=== PATIENT | female | born 1970 | race Caucasian/White ===

== ENCOUNTER 2020-02-11 01:13 | Day surgery (SDC) | payer BC, OTHER ==
[2020-02-11] VITALS (12 sets, daily range): BP systolic 122–159; BP diastolic 63–95
[~2020-02-11] VITALS: Ht 160.2 cm; Wt 100.0 kg
[~2020-02-11 01:13] MED LIST: ATEN50TA PO; DICL50TA3 PO; HYDR-34 PO; LISI1TAB6 PO; VENL150C PO; ZOLP10TA5 PO
--- OUTSIDE RECORDS SUMMARY | 2020-02-11 01:23 | XMS REPORT ---
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 Name Role Phone MARI GALARZA Unavailable PROBLEMS Type Condition ICD9-CM Code [id number] Code Onset Dates Condition S tatus SNOMED Code Problem ADHD, predominantly inattentive type F90.0 Active 57917631 Problem Major depressive disorder, recurrent episode, in full remission F33.42 Active 262940309 Problem Seasonal allergies J30.2 Active 4 33271241 Problem Moderate episode of recurrent major depressive disorder F33.1 Active 814550195 Problem Intractable migraine without aura and with status migr ainosus G43.011 Active 647673534 Problem Hyperlipidemia, unspecified hyperlipidemia type E7 8.5 Active 37828569 Problem Essential hypertension I10 Active 81489745 Problem Recurrent sinusitis J32.9 Active 259987666 Problem Primary insomnia F51.01 Active 397 2004 Problem Migraine without aura and without status migrain osus, not intractable G43.009 Active 891727342 Problem Non-seasonal allergic rhinitis due to pollen J30.1 Active 87853928 Problem Severe episode of recurrent major depressive disorder, without psychotic features F33.2 Active 47400710 Problem Depression, major, in remission F32.5 Active [id number] ALLERGIES No Information ENCOUNTERS Encounter Location Date Diagnosis [facility] [place] [address] [id number] [address] [place] [id number] December, Primary insomnia F51.01 [facility] [place] [address] [id number] [address] [place] [id number] Nov, ADHD, predominantly inattent randall type F90.0 and Primary insomnia F51.01 [facility] [place] [address] [facility] [id number] [address] [place] [id number] Nov, ADHD, predominantly inattent randall type F90.0 [place] [address] [id number] [address] [place] [id number] 21 Nov, 2019 ADHD, predominantly inattent randall type F90.0 [place] [address] [facility] [id number] [address] [place] [id number] 13 Nov, 2019 Depression, major, in remiss ion F32.5 ; Hyperlipidemia, unspecified hyperlipidemia type E78.5 ; Recurrent sinusitis J32.9 and Mammogram declined Z53.20 [facility] [place] [address] [id number] [address] [place] [id number] Oct, ADHD, predominantly inattent randall type F90.0 [place] [address] [facility] [id number] [address] [place] [id number] 28 Sep, 2019 ADHD, predominantly inattent randall type F90.0 [place] [address] [facility] [id number] [address] [place] [id number] Sep, [place] [address] [facility] [id number] [address] [place] [phone] Sep, ADHD, predominantly inattent randall type F90.0 [place] [address] [facility] [id number] [address] [place] [id number] Aug, ADHD, predominantly inattent randall type F90.0 [place] [address] [facility] [id number] [address] [place] [id number] Jul, ADHD, predominantly inattent randall type F90.0 [place] [address] [facility] [id number] [address] [place] [id number] 18 Jun, 2019 ADHD, predominantly inattent randall type F90.0 ; Moderate episode of recurrent major depressive disorder F33.1 and Intractable migraine without aura and with status migrainosus G43.011 [place] [address] [facility] [id number] [address] [place] [phone] 14 May, 2019 Severe episode of recurrent major depressive disorder, without psychotic features F33.2 [place] [address] [id number] [address] [place] [id number] May, [facility] [place] [address] [id number] [address] [place] [id number] Apr, [facility] [place] [address] [id number] [address] [place] [phone] Mar, Moderate episode of recurren t major depressive disorder F33.1 [facility] [place] [address] [id number] [address] [place] [id number] Mar, [facility] [place] [address] [id number] [address] [place] [phone] Feb, [facility] [place] [address] [id number] [address] [place] [id number] Feb, [facility] [place] [address] [facility] [id number] [address] [place] [id number] Jan, Major depressive disorder, r ecurrent episode, in full remission F33.42 [facility] [place] [address] [id number] [address] [place] [id number] Jan, Moderate episode of recurren t major depressive disorder F33.1 ; Non-seasonal allergic rhinitis due to pollen J30.1 ; Migraine without aura and without status migrainosus, not intractable G43.009 and Sinus congestion R09.81 [facility] [place] [address] [id number] [address] [place] [phone] Jan, [facility] [place] [address] [facility] [id number] [address] [place] [id number] December, Moderate episode of recurren t major depressive disorder F33.1 [facility] [place] [address] [id number] [address] [place] [phone] December, [facility] [place] [address] [facility] [id number] [address] [place] [phone] December, Moderate episode of recurren t major depressive disorder F33.1 [facility] [place] [address] [id number] [address] [place] [id number] Nov, Moderate episode of recurren t major depressive disorder F33.1 and Intractable migraine without aura and with status migrainosus G43.011 [facility] [place] [address] [facility] [id number] [address] [place] [phone] Nov, [facility] [place] [address] [facility] [id number] [address] [place] [phone] Oct, Major depressive disorder, r ecurrent episode, in full remission F33.42 ; Intractable migraine without aura and with status migrainosus G43.011 ; Weight gain R63.5 ; Vision changes H53.9 and 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 [place] [address] [facility] [id number] [address] [place] [id number] Oct, Encounter for pre-employment examination Z02.1 [place] [address] [facility] [id number] [address] [place] [id number] Oct, [facility] [address] [facility] [id number] [address] [place] [id number] 20 Sep, 2018 Acute non-recurrent maxillar y sinusitis J01.00 [facility] [place] [address] [facility] [id number] [address] [place] [id number] 14 Sep, 2018 [facility] [place] [address] [facility] [id number] [address] [place] [id number] Aug, [facility] [place] [id number] [address] [place] [id number] Jul, ADHD, predominantly inattent randall type F90.0 and Primary insomnia F51.01 [facility] [place] [address] [facility] [id number] [address] [place] [id number] Jun, ADHD, predominantly inattent randall type F90.0 [facility] [place] [address] [facility] [id number] [address] [place] [id number] May, ADHD, predominantly inattent randall type F90.0 ; Moderate episode of recurrent major depressive disorder F33.1 and Therapeutic drug monitoring Z51.81 [facility] [place] [address] [facility] [id number] [address] [place] [id number] 04 May, 2018 [facility] [place] [address] [facility] [id number] [address] [place] [id number] 28 Apr, 2018 ADHD, predominantly inattent randall type F90.0 [facility] [place] [address] [facility] [id number] [address] [place] [id number] 10 Apr, 2018 ADHD, predominantly inattent randall type F90.0 and Major depressive disorder, recurrent episode, in full remission F33.42 [facility] [place] [address] [facility] [id number] [address] [place] [id number] Mar, ADHD, predominantly inattent randall type F90.0 and Primary insomnia F51.01 [facility] [place] [address] [facility] [id number] [address] [place] [phone] Mar, [facility] [place] [address] [facility] [id number] [address] [place] [id number] Mar, ADHD, predominantly inattent randall type F90.0 and Primary insomnia F51.01 [facility] [place] [address] [facility] [id number] [address] [place] [id number] Feb, ADHD, predominantly inattent randall type F90.0 and Primary insomnia F51.01 [facility] [place] [address] [facility] [id number] [address] [place] [id number] Jan, ADHD, predominantly inattent randall type F90.0 and Primary insomnia F51.01 [facility] [address] [facility] [id number] [address] [place] [id number] December, Seasonal allergies J30.2 and Post-nasal drip R09.82 [facility] [place] [address] [facility] [id number] [address] [place] [id number] December, ADHD, predominantly inattent randall type F90.0 and Primary insomnia F51.01 [facility] [place] [address] [facility] [id number] [address] [place] [phone] Nov, ADHD, predominantly inattent randall type F90.0 [facility] [place] [address] [facility] [id number] [address] [place] [phone] Oct, ADHD, predominantly inattent randall type F90.0 [facility] [place] [address] [facility] [id number] [address] [place] [id number] Oct, ADHD, predominantly inattent randall type F90.0 ; Primary insomnia F51.01 and Screening, lipid Z13.220 [facility] [place] [address] [facility] [id number] [address] [place] [id number] Sep, ADHD, predominantly inattent randall type F90.0 [facility] [place] [address] [facility] [id number] [address] [place] [id number] Aug, ADHD, predominantly inattent randall type F90.0 and Primary insomnia F51.01 [facility] [place] [address] [facility] [id number] [address] [place] [id number] Jul, ADHD, predominantly inattent randall type F90.0 [facility] [place] [address] [facility] [id number] [address] [place] [id number] Jul, Primary insomnia F51.01 and ADHD, predominantly inattentive type F90.0 [facility] [place] [address] [facility] [id number] [address] [place] [id number] Jun, ADHD, predominantly inattent randall type F90.0 [facility] [place] [address] [facility] [id number] [address] [place] [id number] May, ADHD, predominantly inattent randall type F90.0 [facility] [place] [address] [facility] [id number] [address] [place] [id number] Apr, ADHD, predominantly inattent randall type F90.0 [facility] [place] [address] [facility] [id number] [address] [place] [id number] Mar, ADHD, predominantly inattent randall type F90.0 ; Primary insomnia F51.01 ; Major depressive disorder, recurrent episode, in full remission F33.42 and Acne comedone L70.0 [place] [address] [facility] [id number] [address] [place], [place] [id number] Mar, Major depressive disorder, r ecurrent episode, in full remission F33.42 and ADHD, predominantly inattentive type F90.0 [facility] [place] [address] [facility] [id number] [address] [place] [id number] Feb, ADHD, predominantly inattent randall type F90.0 [place] [address] [facility] [id number] [address] [place] [id number] Feb, Primary insomnia F51.01 [place] [address] [place] [id number] [address] [place] [phone] Jan, ADHD, predominantly inattent randall type F90.0 and Primary insomnia F51.01 [place] [address] [place] [id number] [address] [place] [id number] December, ADHD, predominantly inattent randall type F90.0 and Primary insomnia F51.01 [place] [address] [place] [id number] [address] [place] [id number] Oct, ADHD, predominantly inattent randall type F90.0 and Primary insomnia F51.01 [facility] [place] [address] [place] [id number] [address] [place] [id number] Sep, ADHD, predominantly inattent randall type F90.0 and Primary insomnia F51.01 [facility] [place] [address] [facility] [id number] [address] [place] [id number] Aug, ADHD, predominantly inattent randall type F90.0 and Primary insomnia F51.01 [facility] [place] [address] [facility] [id number] [address] [place] [address] Jul, Major depressive disorder, r ecurrent episode, in full remission F33.42 ; ADHD, predominantly inattentive type F90.0 ; Primary insomnia F51.01 ; Acute non-recurrent maxillary sinusitis J01.00 and Screening, lipid Z13.220 [facility] [address] [id number] [address] [place] [id number] Jun, Acute non-recurrent maxillar y sinusitis J01.00 [facility] [place] [address] [id number] [address] [place] [id number] Jun, ADHD, predominantly inattent randall type F90.0 [facility] [place] [address] [id number] [address] [place] [id number] May, [facility] [place] [address] [id number] [address] [place] [id number] Apr, [facility] [address] [id number] [address] [place] [phone] Feb, Rash R21 and Scabies B86 [facility] [place] [address] [id number] [address] [place] [phone] Feb, ADHD, predominantly inattent randall type F90.0 and Major depressive disorder, recurrent episode, in full remission F33.42 [facility] [place] [address] [id number] [address] [place] [id number] Feb, [facility] [place] [address] [id number] [address] [place] [phone] Oct, [facility] [place] [address] [id number] [address] [place] [id number] Sep, [facility] [place] [address] [id number] [address] [place] [phone] Sep, [facility] [place] [address] [id number] [address] [place] [phone] Aug, [facility] [place] [address] [id number] [address] [place] [id number] Jul, [facility] [place] [address] [id number] [address] [place] [id number] Jun, [facility] [place] [address] [id number] [address] [place] [id number] May, [facility] [place] [address] [id number] [address] [place] [phone] May, ADHD, predominantly inattent randall type F90.0 and Major depressive disorder, recurrent episode, in full remission F33.42 [facility] [place] [address] [id number] [address] [place] [id number] Feb, Major depressive disorder, r ecurrent episode, moderate 296.32 [facility] [place] [address] [id number] [address] [place] [id number] Feb, [facility] [place] [address] [id number] [address] [place] [id number] Jan, [facility] [place] [address] [id number] [address] [place] [phone] Jan, [facility] [place] [address] [id number] [address] [place] [phone] December, [facility] [place] [address] [id number] [address] [place] [id number] Nov, [facility] [place] [address] [id number] [address] [place] [id number] Nov, [facility] [place] [address] [facility] [id number] [address] [place] [phone] Oct, [facility] [place] [address] [id number] [address] [place] [id number] Oct, [facility] [place] [address] [id number] [address] [place] [id number] Sep, [facility] [place] [address] [id number] [address] [place] [id number] Sep, [facility] [place] [address] [id number] [address] [place] [phone] Sep, [facility] [place] [address] [id number] [address] [place] [phone] Sep, [facility] [address] [id number] [address] [place] [address], [place] [address] Aug, [facility] [address] [id number] [address] [place] [address], [place] [address] Aug, [facility] [address] [id number] [address] [place] [address], [place] [address] Aug, [facility] [address] [id number] [address] [place] [address], [place] [address] Aug, [facility] [address] [id number] [address] [place] [address], [place] [address] Aug, [facility] [address] [id number] [address] [place] [address], [place] [phone] Aug, [facility] [address] [id number] [address] [place] [address], [place] [address] Jul, [facility] [address] [id number] [address] [place] [address], [place] [id number] Jul, [facility] [address] [id number] [address] [place] [address], [place] [address] Jun, [facility] [address] [id number] [address] [place] [address], [place] [address] Jun, [facility] [address] [id number] [address] [place] [address], [place] [address] May, [facility] [address] [id number] [address] [place] [address], [place] [address] May, [facility] [address] [id number] [address] [place] [address], [place] [address] Apr, [facility] [address] [id number] [address] [place] [address], [place] [address] 24 Apr, 2014 [facility] [address] [id number] [address] [place] [address], [place] [address] 24 Apr, 2014 [facility] [address] [id number] [address] [place] [address] Mar, [facility] [address] [id number] [facility] [place] [address] Mar, [facility] [address] [id number] [address] [place] [address] Mar, [facility] [address] [id number] [address] [place] [address] Mar, [facility] [address] [id number] [facility] [place] [address] Feb, [facility] [address] [id number] [address] [place] [address], [place] [address] Feb, [facility] [address] [id number] [address] [place] [address], [place] [address] Feb, [facility] [address] [id number] [address] [place] [address], [place] [address] Feb, [facility] [address] [id number] [address] [place] [address], [place] [address] Feb, [facility] [address] [id number] [address] [place] [address], [place] [address] Feb, [facility] [address] [id number] [address] [place] [address], [place] [address] Jan, [facility] [address] [id number] [address] [place] [address], [place] [address] Jan, [facility] [address] [id number] [address] [place] [address], [place] [address] Jan, [facility] [address] [id number] [address] [place] [address], [place] [address] Jan, [facility] [address] [id number] [address] [place] [address], [place] [address] December, [facility] [address] [id number] [address] [place] [address], [place] [address] December, [facility] [address] [id number] [facility] [place] [address] December, [facility] [address] [id number] [facility] [place] [address] December, [facility] [address] [id number] [facility] [place] [address] December, [facility] [address] [id number] [facility] [place] [address] December, [facility] [address] [id number] [facility] [place] [address] December, [facility] [address] [id number] [address] [place] [address], [place] [address] December, [facility] [address] [id number] [address] [place] [address], [place] [address] December, [facility] [address] [id number] [address] [place] [address], [place] [address] December, [facility] [address] [id number] [address] [place] [address], [place] [address] Nov, [facility] [address] [id number] [address] [place] [address], [place] [address] Nov, [facility] [address] [id number] [address] [place] [address], [place] [address] Oct, [facility] [address] [id number] [address] [place] [address], [place] [address] Oct, [facility] [address] [id number] [address] [place] [address], [place] [address] Oct, [facility] [address] [id number] [address] [place] [address], [place] [address] Oct, [facility] [address] [id number] [facility] [place] [address] Oct, [facility] [address] [id number] [address] [place] [address], [place] [address] Oct, [facility] [address] [id number] [address] [place] [address], [place] [address] Aug, [facility] [address] [id number] [address] [place] [address], [place] [address] Aug, [facility] [address] [id number] [address] [place] [address], [place] [address] Aug, [facility] [address] [id number] [address] [place] [address], [place] [address] Aug, [facility] [address] [id number] [address] [place] [address], [place] [address] Aug, [facility] [address] [id number] [address] [place] [address], [place] [address] Aug, [facility] [address] [id number] [address] [place] [address], [place] [address] Aug, [facility] [address] [id number] [address] [place] [address], [place] [address] Aug, [facility] [address] [id number] [address] [place] [address], [place] [address] Jul, [facility] [address] [id number] [address] [place] [address], [place] [address] Jul, [facility] [address] [id number] [address] [place] [address], [place] [address] Jun, [facility] [address] [id number] [address] [place] [address], [place] [address] Jun, [facility] [address] [id number] [address] [place] [address], [place] [address] Jun, [facility] [address] [id number] [address] [place] [address], [place] [address] Jun, [facility] [address] [id number] [address] [place] [address], [place] [address] Jun, [facility] [address] [id number] [address] [place] [address], [place] [address] Jun, [facility] [address] [id number] [address] [place] [address], [place] [address] May, [facility] [address] [id number] [address] [place] [address], [place] [address] May, [facility] [address] [id number] [address] [place] [address], [place] [address] Apr, [facility] [address] [id number] [address] [place] [address], [place] [address] Apr, [facility] [address] [id number] [address] [place] [address], [place] [address] Mar, [facility] [address] [id number] [address] [place] [address], [place] [address] Mar, [facility] [address] [id number] [address] [place] [address], [place] [address] Mar, [facility] [address] [id number] [address] [place] [address], [place] [address] Feb, [facility] [address] [id number] [address] [place] [address], [place] [address] Jan, [facility] [address] [id number] [address] [place] [address], [place] [address] December, [facility] [address] [id number] [address] [place] [address], [place] [address] December, [facility] [address] [id number] [address] [place] [address], [place] [address] December, [facility] [address] [id number] [address] [place] [address], [place] [address] December, [facility] [address] [id number] [address] [place] [address], [place] [address] December, [facility] [address] [id number] [address] [place] [address], [place] [address] December, [facility] [address] [id number] [address] [place] [address], [place] [address] Nov, [facility] [address] [id number] [address] [place] [address], [place] [address] 17 Nov, 2012 [facility] [address] [id number] [address] [place] [address], [place] [address] Nov, [facility] [address] [id number] [address] [place] [address], [place] [address] Oct, [facility] [address] [id number] [address] [place] [address], [place] [address] Jun, [facility] [address] [id number] [address] [place] [address], [place] [address] Jun, [facility] [address] [id number] [address] [place] [address], [place] [address] Jun, [facility] [address] [id number] [address] [place] [address], [place] [address] Jun, [facility] [address] [id number] [address] [place] [address], [place] [address] Apr, [facility] [address] [id number] [address] [place] [address], [place] [address] Mar, [facility] [address] [id number] [address] [place] [address], [place] [address] Mar, [facility] [address] [id number] [address] [place] [address], [place] [address] Jan, [facility] [address] [id number] [address] [place] [address], [place] [address] December, [facility] [address] [id number] [address] [place] [address], [place] [address] 16 Nov, 2011 [facility] [address] [id number] [address] [place] [address], [place] [address] Nov, [facility] [address] [id number] [address] [place] [address] Nov, [facility] [place] [address] [id number] [address] [place] [address] Nov, [facility] [place] [address] [id number] [address] [place] [address] Aug, [facility] [place] [address] [id number] [address] [place] [address] Aug, [facility] [place] [address] [id number] [address] [place] [address] Jul, [facility] [place] [address] [id number] [address] [place] [address] Jun, [facility] [place] [address] [id number] [address] [place] [address] Jun, [facility] [place] [address] [id number] [address] [place] [address] Apr, [facility] [place] [address] [id number] [address] [place] [address] Feb, IMMUNIZATIONS No Known Immunizations SOCIAL HISTORY Never Assessed REASON FOR VISIT PLAN OF CARE VITAL SIGNS Height 64 in 2013-05-11 Weight 171.76 lbs 2013-05-11 Temperature 98.6 degrees Fahrenheit 2013-05-11 Heart Rate 86 bpm 2013-05-11 Respiratory Rate 18 2013-05-11 Blood pressure systolic 136 mmHg 2013-05-11 Blood pressure diastolic 82 mmHg 2013-05-11 MEDICATIONS Unknown Medications RESULTS No Results PROCEDURES Procedure Date Ordered Result Body Site LIPID PANEL May 11, 2013 COMPREHEN METABOLIC PANEL May 11, 2013 VENIPUNCT, ROUTINE* May 11, 2013 INSTRUCTIONS MEDICATIONS ADMINISTERED No Known Medications MEDICAL (GENERAL) HISTORY Type Description Date Medical History Hypertension Medical History ADHD Medical History depression Medical History anxiety Surgical History section Surgical History collar bone repair
--- OUTSIDE RECORDS SUMMARY | 2020-02-11 01:24 | XMS REPORT ---
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 Name Role Phone MARI GALARZA Unavailable PROBLEMS Type Condition ICD9-CM Code [id number] Code Onset Dates Condition S tatus SNOMED Code Problem ADHD, predominantly inattentive type F90.0 Active 44280257 Problem Major depressive disorder, recurrent episode, in full remission F33.42 Active 811412840 Problem Seasonal allergies J30.2 Active 4 53157830 Problem Moderate episode of recurrent major depressive disorder F33.1 Active 856699852 Problem Intractable migraine without aura and with status migr ainosus G43.011 Active 445847085 Problem Hyperlipidemia, unspecified hyperlipidemia type E7 8.5 Active 40161797 Problem Essential hypertension I10 Active 82505796 Problem Recurrent sinusitis J32.9 Active 852107596 Problem Primary insomnia F51.01 Active 397 2004 Problem Migraine without aura and without status migrain osus, not intractable G43.009 Active 806310552 Problem Non-seasonal allergic rhinitis due to pollen J30.1 Active 90495099 Problem Severe episode of recurrent major depressive disorder, without psychotic features F33.2 Active 61561636 Problem Depression, major, in remission F32.5 Active [id number] ALLERGIES No Information ENCOUNTERS Encounter Location Date Diagnosis [facility] [address] [facility] [id number] [address] [place] [id number] Nov, ADHD, predominantly inattent randall type F90.0 and Primary insomnia F51.01 [facility] [address] [facility] [id number] [address] [place] [id number] Nov, ADHD, predominantly inattent randall type F90.0 [facility] [address] [facility] [id number] [address] [place] [phone] Nov, ADHD, predominantly inattent randall type F90.0 [facility] [address] [id number] [address] [place] [id number] 13 Nov, 2019 Depression, major, in remiss ion F32.5 ; Hyperlipidemia, unspecified hyperlipidemia type E78.5 ; Recurrent sinusitis J32.9 and Mammogram declined Z53.20 [facility] [address] [id number] [address] [place] [phone] Oct, ADHD, predominantly inattent randall type F90.0 [place] [address] [id number] [address] [place] [phone] 28 Sep, 2019 ADHD, predominantly inattent randall type F90.0 [place] [address] [facility] [id number] [address] [place] [id number] Sep, [place] [address] [facility] [id number] [address] [place] [address] Sep, ADHD, predominantly inattent randall type F90.0 [place] [address] [id number] [address] [place] [address] Aug, ADHD, predominantly inattent randall type F90.0 [place] [address] [facility] [id number] [address] [place] [id number] Jul, ADHD, predominantly inattent randall type F90.0 [place] [address] [facility] [id number] [address] [place] [phone] Jun, ADHD, predominantly inattent randall type F90.0 ; Moderate episode of recurrent major depressive disorder F33.1 and Intractable migraine without aura and with status migrainosus G43.011 [place] [address] [facility] [id number] [address] [place] [phone] 14 May, 2019 Severe episode of recurrent major depressive disorder, without psychotic features F33.2 [facility] [address] [facility] [id number] [address] [place] [phone] 07 May, 2019 [place] [address] [id number] [address] [place] [phone] Apr, [facility] [address] [id number] [address] [place] [phone] Mar, Moderate episode of recurren t major depressive disorder F33.1 [facility] [address] [id number] [address] [place] [phone] Mar, [facility] [address] [facility] [id number] [address] [place] [phone] Feb, [facility] [address] [id number] [address] [place] [phone] Feb, [facility] [address] [facility] [id number] [address] [place] [id number] Jan, Major depressive disorder, r ecurrent episode, in full remission F33.42 [facility] [address] [facility] [id number] [address] [place] [phone] Jan, Moderate episode of recurren t major depressive disorder F33.1 ; Non-seasonal allergic rhinitis due to pollen J30.1 ; Migraine without aura and without status migrainosus, not intractable G43.009 and Sinus congestion R09.81 [facility] [address] [facility] [id number] [address] [place] [phone] Jan, [facility] [address] [facility] [id number] [address] [place] [id number] December, Moderate episode of recurren t major depressive disorder F33.1 [facility] [address] [id number] [address] [place] [phone] December, [facility] [address] [facility] [id number] [address] [place] [phone] December, Moderate episode of recurren t major depressive disorder F33.1 [facility] [address] [id number] [address] [place] [address] Nov, Moderate episode of recurren t major depressive disorder F33.1 and Intractable migraine without aura and with status migrainosus G43.011 [facility] [address] [facility] [id number] [address] [place] [phone] Nov, [facility] [address] [facility] [id number] [address] [place] [phone] Oct, Major depressive disorder, r ecurrent episode, in full remission F33.42 ; Intractable migraine without aura and with status migrainosus G43.011 ; Weight gain R63.5 ; Vision changes H53.9 and Other custodial (current) drug therapy Z79.899 [place] [address] [facility] [id number] [address] [place] [id number] Oct, Encounter for pre-employment examination Z02.1 [place] [address] [place] [id number] [address] [place] [id number] Oct, [facility] [address] [facility] [id number] [address] [place] [id number] Sep, Acute non-recurrent maxillar y sinusitis J01.00 [place] [address] [facility] [id number] [address] [place] [phone] Sep, [place] [address] [place] [id number] [address] [place] [phone] Aug, [place] [address] [place] [id number] [address] [place] [id number] Jul, ADHD, predominantly inattent randall type F90.0 and Primary insomnia F51.01 [facility] [address] [facility] [id number] [address] [place] [phone] Jun, ADHD, predominantly inattent randall type F90.0 [place] [address] [place] [id number] [address] [place] [phone] May, ADHD, predominantly inattent randall type F90.0 ; Moderate episode of recurrent major depressive disorder F33.1 and Therapeutic drug monitoring Z51.81 [place] [address] [place] [id number] [address] [place] [phone] May, [facility] [address] [facility] [id number] [address] [place] [phone] 28 Apr, 2018 ADHD, predominantly inattent randall type F90.0 [facility] [address] [facility] [id number] [address] [place] [phone] 10 Apr, 2018 ADHD, predominantly inattent randall type F90.0 and Major depressive disorder, recurrent episode, in full remission F33.42 [facility] [address] [facility] [id number] [address] [place] [phone] Mar, ADHD, predominantly inattent randall type F90.0 and Primary insomnia F51.01 [facility] [address] [facility] [id number] [address] [place] [phone] Mar, [facility] [address] [place] [id number] [address] [place] [phone] Mar, ADHD, predominantly inattent randall type F90.0 and Primary insomnia F51.01 [facility] [address] [facility] [id number] [address] [place] [phone] Feb, ADHD, predominantly inattent randall type F90.0 and Primary insomnia F51.01 [facility] [address] [facility] [id number] [address] [place] [phone] Jan, ADHD, predominantly inattent randall type F90.0 and Primary insomnia F51.01 [facility] [address] [facility] [id number] [address] [place] [phone] December, Seasonal allergies J30.2 and Post-nasal drip R09.82 [facility] [address] [facility] [id number] [address] [place] [phone] December, ADHD, predominantly inattent randall type F90.0 and Primary insomnia F51.01 [facility] [address] [facility] [id number] [address] [place] [phone] Nov, ADHD, predominantly inattent randall type F90.0 [facility] [address] [facility] [id number] [address] [place] [phone] Oct, ADHD, predominantly inattent randall type F90.0 [place] [address] [facility] [id number] [address] [place] [phone] Oct, ADHD, predominantly inattent randall type F90.0 ; Primary insomnia F51.01 and Screening, lipid Z13.220 [place] [address] [facility] [id number] [address] [place] [phone] Sep, ADHD, predominantly inattent randall type F90.0 [place] [address] [id number] [address] [place] [phone] Aug, ADHD, predominantly inattent randall type F90.0 and Primary insomnia F51.01 [place] [address] [place] [id number] [address] [place] [id number] Jul, ADHD, predominantly inattent randall type F90.0 [place] [address] [facility] [id number] [address] [place] [phone] Jul, Primary insomnia F51.01 and ADHD, predominantly inattentive type F90.0 [place] [address] [place] [id number] [address] [place] [address] Jun, ADHD, predominantly inattent randall type F90.0 [place] [address] [facility] [id number] [address] [place] [phone] May, ADHD, predominantly inattent randall type F90.0 [place] [address] [facility] [id number] [address] [place] [phone] Apr, ADHD, predominantly inattent randall type F90.0 [place] [address] [facility] [id number] [address] [place] [phone] Mar, ADHD, predominantly inattent randall type F90.0 ; Primary insomnia F51.01 ; Major depressive disorder, recurrent episode, in full remission F33.42 and Acne comedone L70.0 [place] [address] [place] [id number] [address] [place] [phone] Mar, Major depressive disorder, r ecurrent episode, in full remission F33.42 and ADHD, predominantly inattentive type F90.0 [place] [address] [place] [id number] [address] [place] [id number] Feb, ADHD, predominantly inattent randall type F90.0 [place] [address] [address] Feb, Primary insomnia F51.01 [place] [address] [address] Jan, ADHD, predominantly inattent randall type F90.0 and Primary insomnia F51.01 [place] [address] [address] December, ADHD, predominantly inattent randall type F90.0 and Primary insomnia F51.01 [place] [address] [address] Oct, ADHD, predominantly inattent randall type F90.0 and Primary insomnia F51.01 [place] [address] [phone] Sep, ADHD, predominantly inattent randall type F90.0 and Primary insomnia F51.01 [place] [address] [place] [id number] [address] [place] [address] Aug, ADHD, predominantly inattent randall type F90.0 and Primary insomnia F51.01 [place] [address] [place] [id number] [address] [place] [address] Jul, Major depressive disorder, r ecurrent episode, in full remission F33.42 ; ADHD, predominantly inattentive type F90.0 ; Primary insomnia F51.01 ; Acute non-recurrent maxillary sinusitis J01.00 and Screening, lipid Z13.220 [facility] [address] [place] [id number] [address] [place] [phone] Jun, Acute non-recurrent maxillar y sinusitis J01.00 [facility] [address] [id number] [address] [place] [phone] Jun, ADHD, predominantly inattent randall type F90.0 [facility] [address] [id number] [address] [place] [id number] May, [facility] [address] [id number] [address] [place] [phone] Apr, [facility] [address] [id number] [address] [place] [phone] Feb, Rash R21 and Scabies B86 [facility] [address] [id number] [address] [place] [id number] Feb, ADHD, predominantly inattent randall type F90.0 and Major depressive disorder, recurrent episode, in full remission F33.42 [facility] [address] [id number] [address] [place] [phone] Feb, [facility] [address] [id number] [address] [place] [phone] Oct, [facility] [address] [id number] [address] [place] [phone] Sep, [facility] [address] [id number] [address] [place] [id number] Sep, [facility] [address] [id number] [address] [place] [phone] Aug, [facility] [address] [id number] [address] [place] [id number] Jul, [facility] [address] [id number] [address] [place] [id number] Jun, [facility] [address] [id number] [address] [place] [phone] May, [facility] [address] [id number] [address] [place] [phone] May, ADHD, predominantly inattent randall type F90.0 and Major depressive disorder, recurrent episode, in full remission F33.42 [facility] [address] [id number] [address] [place] [phone] Feb, Major depressive disorder, r ecurrent episode, moderate 296.32 [facility] [address] [id number] [address] [place] [phone] Feb, [facility] [address] [id number] [address] [place] [id number] Jan, [facility] [address] [id number] [address] [place] [phone] Jan, [facility] [address] [id number] [address] [place] [id number] December, [facility] [address] [id number] [address] [place] [id number] Nov, [facility] [address] [id number] [address] [place] [phone] Nov, [facility] [address] [id number] [address] [place] [phone] Oct, [facility] [address] [facility] [id number] [address] [place] [id number] Oct, [facility] [address] [id number] [address] [place] [id number] Sep, [facility] [address] [id number] [address] [place] [phone] Sep, [facility] [address] [id number] [address] [place] [phone] Sep, [facility] [address] [id number] [address] [place] [id number] Sep, [facility] [address] [id number] [address] [place] [id number] Aug, [facility] [address] [id number] [address] [place] [address], [place] [address] Aug, [facility] [address] [id number] [address] [place] [address], [place] [address] Aug, [facility] [address] [id number] [address] [place] [address], [place] [id number] Aug, [facility] [address] [id number] [address] [place] [address], [place] [id number] Aug, [facility] [address] [id number] [address] [place] [address], [place] [address] Aug, [facility] [address] [id number] [address] [place] [address], [place] [address] Jul, [facility] [address] [id number] [address] [place] [address], [place] [id number] Jul, [facility] [address] [id number] [address] [place] [address], [place] [address] Jun, [facility] [address] [id number] [address] [place] [address], [place] [id number] Jun, [facility] [address] [id number] [address] [place] [address], [place] [id number] May, [facility] [address] [id number] [address] [place] [address], [place] [id number] May, [facility] [address] [id number] [address] [place] [address], [place] [address] Apr, [facility] [address] [id number] [address] [place] [address], [place] [id number] Apr, [facility] [address] [id number] [address] [place] [address], [place] [id number] Apr, [facility] [address] [id number] [address] [place] [address], [place] [id number] Mar, [facility] [address] [id number] [address] [place] [address], [place] [address] Mar, [facility] [address] [id number] [address] [place] [address], [place] [id number] Mar, [facility] [address] [id number] [address] [place] [address], [place] [address] Mar, [facility] [address] [id number] [address] [place] [address], [place] [id number] Feb, [facility] [address] [id number] [address] [place] [address], [place] [id number] Feb, [facility] [address] [id number] [address] [place] [address], [place] [address] Feb, [facility] [address] [id number] [address] [place] [address], [place] [address] Feb, [facility] [address] [id number] [address] [place] [address], [place] [id number] Feb, [facility] [address] [id number] [address] [place] [address], [place] [address] Feb, [facility] [address] [id number] [address] [place] [address], [place] [id number] Jan, [facility] [address] [id number] [address] [place] [address], [place] [id number] Jan, [facility] [address] [id number] [address] [place] [address], [place] [id number] Jan, [facility] [address] [id number] [address] [place] [address], [place] [id number] Jan, [facility] [address] [id number] [address] [place] [address], [place] [id number] December, [facility] [address] [id number] [address] [place] [address], [place] [id number] December, [facility] [address] [id number] [address] [place] [address], [place] [id number] December, [facility] [address] [id number] [facility] [place] [id number] December, [facility] [address] [id number] [address] [place] [address], [place] [id number] December, [facility] [address] [id number] [address] [place] [address], [place] [id number] December, [facility] [address] [id number] [address] [place] [address], [place] [id number] December, [facility] [address] [id number] [address] [place] [address], [place] [id number] December, [facility] [address] [id number] [address] [place] [address], [place] [id number] December, [facility] [address] [id number] [address] [place] [address], [place] [id number] December, [facility] [address] [id number] [address] [place] [address], [place] [id number] Nov, [facility] [address] [id number] [address] [place] [address], [place] [id number] Nov, [facility] [address] [id number] [address] [place] [address], [place] [id number] Oct, [facility] [address] [id number] [address] [place] [address], [place] [id number] Oct, [facility] [address] [id number] [address] [place] [address], [place] [id number] Oct, [facility] [address] [id number] [address] [place] [address], [place] [id number] Oct, [facility] [address] [id number] [address] [place] [address], [place] [id number] Oct, [facility] [address] [id number] [address] [place] [address], [place] [id number] Oct, [facility] [address] [id number] [address] [place] [address], [place] [id number] Aug, [facility] [address] [id number] [address] [place] [address], [place] [id number] Aug, [facility] [address] [id number] [address] [place] [address], [place] [id number] Aug, [facility] [address] [address] [id number] [address] [place] [address], [place] [address] Aug, [facility] [address] [id number] [address] [place] [address], [place] [address] Aug, [facility] [address] [id number] [address] [place] [address], [place] [address] Aug, [facility] [address] [id number] [address] [place] [address], [place] [address] Aug, [facility] [address] [id number] [address] [place] [address], [place] [address] Aug, [facility] [address] [id number] [address] [place] [address], [place] [id number] Jul, [facility] [address] [id number] [address] [place] [address], [place] [address] Jul, [facility] [address] [id number] [address] [place] [address], [place] [address] Jun, [facility] [address] [id number] [address] [place] [address], [place] [id number] Jun, [facility] [address] [id number] [address] [place] [address], [place] [address] Jun, [facility] [address] [id number] [address] [place] [address], [place] [address] Jun, [facility] [address] [id number] [address] [place] [address], [place] [address] Jun, [facility] [address] [id number] [address] [place] [address], [place] [address] Jun, [facility] [address] [id number] [address] [place] [address], [place] [address] May, [facility] [address] [id number] [address] [place] [address], [place] [address] May, [facility] [address] [id number] [address] [place] [address], [place] [address] Apr, [facility] [address] [id number] [address] [place] [address], [place] [address] Apr, [facility] [address] [id number] [address] [place] [address], [place] [address] Mar, [facility] [address] [id number] [address] [place] [address], [place] [id number] Mar, [facility] [address] [id number] [address] [place] [address], [place] [address] Mar, [facility] [address] [id number] [address] [place] [address], [place] [address] Feb, [facility] [address] [id number] [address] [place] [address], [place] [address] Jan, [facility] [address] [id number] [address] [place] [address], [place] [address] December, [facility] [address] [id number] [address] [place] [address], [place] [address] December, [facility] [address] [id number] [address] [place] [address], [place] [address] December, [facility] [address] [id number] [address] [place] [address], [place] [address] December, [facility] [address] [id number] [address] [place] [address], [place] [address] December, [facility] [address] [id number] [address] [place] [address], [place] [address] December, [facility] [address] [id number] [address] [place] [address], [place] [address] Nov, [facility] [address] [id number] [address] [place] [address], [place] [address] 17 Nov, 2012 [facility] [address] [id number] [address] [place] [address], [place] [address] 08 Nov, 2012 [facility] [address] [id number] [address] [place] [address], [place] [address] 05 Oct, 2012 [facility] [address] [id number] [address] [place] [address], [place] [address] Jun, [facility] [address] [id number] [address] [place] [address], [place] [address] Jun, [facility] [address] [id number] [address] [place] [address], [place] [address] Jun, [facility] [address] [id number] [address] [place] [address], [place] [address] Jun, [facility] [address] [id number] [address] [place] [address], [place] [address] Apr, [facility] [address] [id number] [address] [place] [address], [place] [address] Mar, [facility] [address] [id number] [address] [place] [address], [place] [address] Mar, [facility] [address] [id number] [address] [place] [address], [place] [address] Jan, [facility] [address] [id number] [address] [place] [address], [place] [address] December, [facility] [address] [id number] [address] [place] [address], [place] [address] 16 Nov, 2011 [facility] [address] [id number] [address] [place] [address], [place] [address] Nov, [facility] [address] [id number] [address] [place] [address], [place] [address] 05 Nov, 2011 [facility] [address] [id number] [address] [place] [id number] Nov, [facility] [address] [id number] [address] [place] [address] Aug, [facility] [address] [id number] [address] [place] [id number] Aug, [facility] [address] [id number] [address] [place] [address] Jul, [facility] [address] [id number] [address] [place] [id number] Jun, [facility] [address] [facility] [id number] [address] [place] [id number] Jun, [facility] [address] [facility] [id number] [address] [place] [id number] Apr, [facility] [address] [facility] [id number] [address] [place] [id number] Feb, IMMUNIZATIONS No Known Immunizations SOCIAL HISTORY Never Assessed REASON FOR VISIT PLAN OF CARE VITAL SIGNS MEDICATIONS Unknown Medications RESULTS No Results PROCEDURES No Known procedures INSTRUCTIONS MEDICATIONS ADMINISTERED No Known Medications MEDICAL (GENERAL) HISTORY Type Description Date Medical History Hypertension Medical History ADHD Medical History depression Medical History anxiety Surgical History section Surgical History collar bone repair
--- OUTSIDE RECORDS SUMMARY | 2020-02-11 01:24 | XMS REPORT ---
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 Name Role Phone MARI GALARZA Unavailable PROBLEMS Type Condition ICD9-CM Code VTH63-WE Code Onset Dates Condition S tatus SNOMED Code Problem ADHD, predominantly inattentive type F90.0 Active 97843744 Problem Major depressive disorder, recurrent episode, in full remission F33.42 Active 794154672 Problem Seasonal allergies J30.2 Active 4 07961953 Problem Moderate episode of recurrent major depressive disorder F33.1 Active 178269827 Problem Intractable migraine without aura and with status migr ainosus G43.011 Active 138816249 Problem Hyperlipidemia, unspecified hyperlipidemia type E7 8.5 Active 54963676 Problem Essential hypertension I10 Active 12121503 Problem Recurrent sinusitis J32.9 Active 881887230 Problem Primary insomnia F51.01 Active 397 2004 Problem Migraine without aura and without status migrain osus, not intractable G43.009 Active 507243045 Problem Non-seasonal allergic rhinitis due to pollen J30.1 Active 77921719 Problem Severe episode of recurrent major depressive disorder, without psychotic features F33.2 Active 79433097 Problem Depression, major, in remission F32.5 Active [id number] ALLERGIES No Information ENCOUNTERS Encounter Location Date Diagnosis [facility] [address] [facility] [id number] [address] [place] [id number] Nov, ADHD, predominantly inattent randall type F90.0 and Primary insomnia F51.01 [facility] [address] [facility] [id number] [address] [place] [phone] Nov, ADHD, predominantly inattent randall type F90.0 [facility] [address] [facility] [id number] [address] [place] [phone] Nov, ADHD, predominantly inattent randall type F90.0 [facility] [address] [id number] [address] [place] [id number] 13 Nov, 2019 Depression, major, in remiss ion F32.5 ; Hyperlipidemia, unspecified hyperlipidemia type E78.5 ; Recurrent sinusitis J32.9 and Mammogram declined Z53.20 [facility] [address] [id number] [address] [place] [phone] Oct, ADHD, predominantly inattent randall type F90.0 [place] [address] [id number] [address] [place] [id number] 28 Sep, 2019 ADHD, predominantly inattent randall type F90.0 [place] [address] [facility] [id number] [address] [place] [address] Sep, [place] [address] [facility] [id number] [address] [place] [phone] Sep, ADHD, predominantly inattent randall type F90.0 [place] [id number] [id number] [address] [place] [address] Aug, ADHD, predominantly inattent randall type F90.0 [place] [address] [facility] [id number] [address] [place] [address] Jul, ADHD, predominantly inattent randall type F90.0 [place] [address] [facility] [id number] [address] [place] [address] Jun, ADHD, predominantly inattent randall type F90.0 ; Moderate episode of recurrent major depressive disorder F33.1 and Intractable migraine without aura and with status migrainosus G43.011 [place] [address] [facility] [id number] [address] [place] [id number] 14 May, 2019 Severe episode of recurrent major depressive disorder, without psychotic features F33.2 [facility] [address] [facility] [id number] [address] [place] [id number] 07 May, 2019 [place] [address] [id number] [address] [place] [phone] Apr, [facility] [address] [id number] [address] [place] [id number] Mar, Moderate episode of recurren t major depressive disorder F33.1 [facility] [address] [id number] [address] [place] [id number] Mar, [facility] [address] [facility] [id number] [address] [place] [id number] Feb, [facility] [address] [id number] [address] [place] [address] Feb, [facility] [address] [facility] [id number] [address] [place] [address] Jan, Major depressive disorder, r ecurrent episode, in full remission F33.42 [facility] [address] [facility] [id number] [address] [place] [phone] Jan, Moderate episode of recurren t major depressive disorder F33.1 ; Non-seasonal allergic rhinitis due to pollen J30.1 ; Migraine without aura and without status migrainosus, not intractable G43.009 and Sinus congestion R09.81 [facility] [address] [facility] [id number] [address] [place] [address] Jan, [facility] [address] [facility] [id number] [address] [place] [id number] December, Moderate episode of recurren t major depressive disorder F33.1 [facility] [address] [id number] [address] [place] [phone] December, [facility] [address] [facility] [id number] [address] [place] [address] December, Moderate episode of recurren t major depressive disorder F33.1 [facility] [address] [id number] [address] [place] [address] Nov, Moderate episode of recurren t major depressive disorder F33.1 and Intractable migraine without aura and with status migrainosus G43.011 [facility] [address] [facility] [id number] [address] [place] [address] Nov, [facility] [address] [facility] [id number] [address] [place] [address] Oct, Major depressive disorder, r ecurrent episode, in full remission F33.42 ; Intractable migraine without aura and with status migrainosus G43.011 ; Weight gain R63.5 ; Vision changes H53.9 and Other prison (current) drug therapy Z79.899 [place] [address] [facility] [id number] [address] [place] [address] Oct, Encounter for pre-employment examination Z02.1 [place] [address] [place] [id number] [address] [place] [id number] Oct, [facility] [address] [facility] [id number] [address] [place] [address] Sep, Acute non-recurrent maxillar y sinusitis J01.00 [place] [address] [facility] [id number] [address] [place] [address] Sep, [place] [address] [place] [id number] [address] [place] [address] Aug, [place] [address] [place] [id number] [address] [place] [address] Jul, ADHD, predominantly inattent randall type F90.0 and Primary insomnia F51.01 [facility] [address] [facility] [id number] [address] [place] [address] Jun, ADHD, predominantly inattent randall type F90.0 [place] [address] [place] [id number] [address] [place] [address] May, ADHD, predominantly inattent randall type F90.0 ; Moderate episode of recurrent major depressive disorder F33.1 and Therapeutic drug monitoring Z51.81 [place] [address] [place] [id number] [address] [place] [address] May, [facility] [address] [facility] [id number] [address] [place] [id number] 28 Apr, 2018 ADHD, predominantly inattent randall type F90.0 [facility] [address] [facility] [id number] [address] [place] [phone] 10 Apr, 2018 ADHD, predominantly inattent randall type F90.0 and Major depressive disorder, recurrent episode, in full remission F33.42 [facility] [address] [facility] [id number] [address] [place] [address] Mar, ADHD, predominantly inattent randall type F90.0 and Primary insomnia F51.01 [facility] [address] [facility] [id number] [address] [place] [address] Mar, [facility] [address] [place] [id number] [address] [place] [address] Mar, ADHD, predominantly inattent randall type F90.0 and Primary insomnia F51.01 [facility] [address] [facility] [id number] [address] [place] [id number] Feb, ADHD, predominantly inattent randall type F90.0 and Primary insomnia F51.01 [facility] [address] [facility] [id number] [address] [place] [phone] Jan, ADHD, predominantly inattent randall type F90.0 and Primary insomnia F51.01 [facility] [address] [facility] [id number] [address] [place] [address] December, Seasonal allergies J30.2 and Post-nasal drip R09.82 [facility] [address] [facility] [id number] [address] [place] [phone] December, ADHD, predominantly inattent randall type F90.0 and Primary insomnia F51.01 [facility] [address] [facility] [id number] [address] [place] [address] Nov, ADHD, predominantly inattent randall type F90.0 [facility] [address] [facility] [id number] [address] [place] [id number] Oct, ADHD, predominantly inattent randall type F90.0 [place] [address] [facility] [id number] [address] [place] [address] Oct, ADHD, predominantly inattent randall type F90.0 ; Primary insomnia F51.01 and Screening, lipid Z13.220 [place] [address] [facility] [id number] [address] [place] [address] Sep, ADHD, predominantly inattent randall type F90.0 [place] [address] [id number] [address] [place] [address] Aug, ADHD, predominantly inattent randall type F90.0 and Primary insomnia F51.01 [place] [address] [place] [id number] [address] [place] [id number] Jul, ADHD, predominantly inattent randall type F90.0 [place] [address] [facility] [id number] [address] [place] [address] Jul, Primary insomnia F51.01 and ADHD, predominantly inattentive type F90.0 [place] [address] [place] [id number] [address] [place] [address] Jun, ADHD, predominantly inattent randall type F90.0 [place] [address] [facility] [id number] [address] [place] [address] May, ADHD, predominantly inattent randall type F90.0 [place] [address] [facility] [id number] [address] [place] [address] Apr, ADHD, predominantly inattent randall type F90.0 [place] [address] [facility] [id number] [address] [place] [address] Mar, ADHD, predominantly inattent randall type F90.0 ; Primary insomnia F51.01 ; Major depressive disorder, recurrent episode, in full remission F33.42 and Acne comedone L70.0 [place] [address] [place] [id number] [address] [place] [address] Mar, Major depressive disorder, r ecurrent episode, in full remission F33.42 and ADHD, predominantly inattentive type F90.0 [place] [address] [place] [id number] [address] [place] [address] Feb, ADHD, predominantly inattent randall type F90.0 [place] [address] [address] Feb, Primary insomnia F51.01 [place] [address] [address] Jan, ADHD, predominantly inattent randall type F90.0 and Primary insomnia F51.01 [place] [address] [address] December, ADHD, predominantly inattent randall type F90.0 and Primary insomnia F51.01 [place] [address] [address] Oct, ADHD, predominantly inattent randall type F90.0 and Primary insomnia F51.01 [place] [address] [address] Sep, ADHD, predominantly inattent randall type F90.0 and Primary insomnia F51.01 [place] [address] [place] [id number] [address] [place] [address] Aug, ADHD, predominantly inattent randall type F90.0 and Primary insomnia F51.01 [place] [address] [place] [id number] [address] [place] [address] Jul, Major depressive disorder, r ecurrent episode, in full remission F33.42 ; ADHD, predominantly inattentive type F90.0 ; Primary insomnia F51.01 ; Acute non-recurrent maxillary sinusitis J01.00 and Screening, lipid Z13.220 [facility] [address] [place] [id number] [address] [place] [address] Jun, Acute non-recurrent maxillar y sinusitis J01.00 [facility] [address] [id number] [address] [place] [id number] Jun, ADHD, predominantly inattent randall type F90.0 [facility] [address] [id number] [address] [place] [address] May, [facility] [address] [id number] [address] [place] [address] Apr, [facility] [address] [id number] [address] [place] [address] Feb, Rash R21 and Scabies B86 [facility] [address] [id number] [address] [place] [id number] Feb, ADHD, predominantly inattent randall type F90.0 and Major depressive disorder, recurrent episode, in full remission F33.42 [facility] [address] [id number] [address] [place] [address] Feb, [facility] [address] [id number] [address] [place] [address] Oct, [facility] [address] [id number] [address] [place] [phone] Sep, [facility] [address] [id number] [address] [place] [address] Sep, [facility] [address] [id number] [address] [place] [id number] Aug, [facility] [address] [id number] [address] [place] [address] Jul, [facility] [address] [id number] [address] [place] [id number] Jun, [facility] [address] [id number] [address] [place] [id number] May, [facility] [address] [id number] [address] [place] [address] May, ADHD, predominantly inattent randall type F90.0 and Major depressive disorder, recurrent episode, in full remission F33.42 [facility] [address] [id number] [address] [place] [id number] Feb, Major depressive disorder, r ecurrent episode, moderate 296.32 [facility] [address] [id number] [address] [place] [address] Feb, [facility] [address] [id number] [address] [place] [id number] Jan, [facility] [address] [id number] [address] [place] [id number] Jan, [facility] [address] [id number] [address] [place] [id number] December, [facility] [address] [id number] [address] [place] [id number] Nov, [facility] [address] [id number] [address] [place] [address] Nov, [facility] [address] [id number] [address] [place] [id number] Oct, [facility] [address] [facility] [id number] [address] [place] [id number] Oct, [facility] [address] [id number] [address] [place] [id number] Sep, [facility] [address] [id number] [address] [place] [id number] Sep, [facility] [address] [id number] [address] [place] [id number] Sep, [facility] [address] [id number] [address] [place] [id number] Sep, [facility] [address] [id number] [address] [place] [address] Aug, [facility] [address] [id number] [address] [place] [address], [place] [address] Aug, [facility] [address] [id number] [address] [place] [address], [place] [address] Aug, [facility] [address] [id number] [address] [place] [address], [place] [address] Aug, [facility] [address] [id number] [address] [place] [address], [place] [address] Aug, [facility] [address] [id number] [address] [place] [address], [place] [address] Aug, [facility] [address] [id number] [address] [place] [address], [place] [address] Jul, [facility] [address] [id number] [address] [place] [address], [place] [address] Jul, [facility] [address] [id number] [address] [place] [address], [place] [address] Jun, [facility] [address] [id number] [address] [place] [address], [place] [address] Jun, [facility] [address] [id number] [address] [place] [address], [place] [address] May, [facility] [address] [id number] [address] [place] [address], [place] [address] May, [facility] [address] [id number] [address] [place] [address], [place] [address] Apr, [facility] [address] [id number] [address] [place] [address], [place] [address] Apr, [facility] [address] [id number] [address] [place] [address], [place] [address] Apr, [facility] [address] [id number] [address] [place] [address], [place] [address] Mar, [facility] [address] [id number] [address] [place] [address], [place] [address] Mar, [facility] [address] [id number] [address] [place] [address], [place] [address] Mar, [facility] [address] [id number] [address] [place] [address], [place] [address] Mar, [facility] [address] [id number] [address] [place] [address], [place] [address] Feb, [facility] [address] [id number] [address] [place] [address], [place] [address] Feb, [facility] [address] [id number] [address] [place] [address], [place] [address] Feb, [facility] [address] [id number] [address] [place] [address], [place] [address] Feb, [facility] [address] [id number] [address] [place] [address], [place] [address] Feb, [facility] [address] [id number] [address] [place] [address], [place] [address] Feb, [facility] [address] [id number] [address] [place] [address], [place] [address] Jan, [facility] [address] [id number] [address] [place] [address], [place] [address] Jan, [facility] [address] [id number] [address] [place] [address], [place] [address] Jan, [facility] [address] [id number] [address] [place] [address], [place] [address] Jan, [facility] [address] [id number] [address] [place] [address], [place] [address] December, [facility] [address] [id number] [address] [place] [address], [place] [address] December, [facility] [address] [id number] [address] [place] [address], [place] [address] December, [facility] [address] [id number] [facility] [place] [address] December, [facility] [address] [id number] [address] [place] [address], [place] [address] December, [facility] [address] [id number] [address] [place] [address], [place] [id number] December, [facility] [address] [id number] [address] [place] [address], [place] [address] December, [facility] [address] [id number] [address] [place] [address], [place] [address] December, [facility] [address] [id number] [address] [place] [address], [place] [id number] December, [facility] [address] [id number] [address] [place] [address], [place] [address] December, [facility] [address] [id number] [address] [place] [address], [place] [address] Nov, [facility] [address] [id number] [address] [place] [address], [place] [address] Nov, [facility] [address] [id number] [address] [place] [address], [place] [address] Oct, [facility] [address] [id number] [address] [place] [address], [place] [id number] Oct, [facility] [address] [id number] [address] [place] [address], [place] [address] Oct, [facility] [address] [id number] [address] [place] [address], [place] [address] Oct, [facility] [address] [id number] [address] [place] [address], [place] [address] Oct, [facility] [address] [id number] [address] [place] [address], [place] [address] Oct, [facility] [address] [id number] [address] [place] [address], [place] [address] Aug, [facility] [address] [id number] [address] [place] [address], [place] [address] Aug, [facility] [address] [id number] [address] [place] [address], [place] [address] Aug, [facility] [address] [id number] [address] [place] [address], [place] [address] Aug, [facility] [address] [id number] [address] [place] [address], [place] [address] Aug, [facility] [address] [id number] [address] [place] [address], [place] [address] Aug, [facility] [address] [id number] [address] [place] [address], [place] [address] Aug, [facility] [address] [id number] [address] [place] [address], [place] [address] Aug, [facility] [address] [id number] [address] [place] [address], [place] [address] Jul, [facility] [address] [id number] [address] [place] [address], [place] [address] Jul, [facility] [address] [id number] [address] [place] [address], [place] [address] Jun, [facility] [address] [id number] [address] [place] [address], [place] [address] Jun, [facility] [address] [id number] [address] [place] [address], [place] [address] Jun, [facility] [address] [id number] [address] [place] [address], [place] [address] Jun, [facility] [address] [id number] [address] [place] [address], [place] [address] Jun, [facility] [address] [id number] [address] [place] [address], [place] [address] Jun, [facility] [address] [id number] [address] [place] [address], [place] [address] May, [facility] [address] [id number] [address] [place] [address], [place] [address] May, [facility] [address] [id number] [address] [place] [address], [place] [address] Apr, [facility] [address] [id number] [address] [place] [address], [place] [address] Apr, [facility] [address] [id number] [address] [place] [address], [place] [address] Mar, [facility] [address] [id number] [address] [place] [address], [place] [address] Mar, [facility] [address] [id number] [address] [place] [address], [place] [address] Mar, [facility] [address] [id number] [address] [place] [address], [place] [address] Feb, [facility] [address] [id number] [address] [place] [address], [place] [address] Jan, [facility] [address] [id number] [address] [place] [address], [place] [address] December, [facility] [address] [id number] [address] [place] [address], [place] [address] December, [facility] [address] [id number] [address] [place] [address], [place] [address] December, [facility] [address] [id number] [address] [place] [address], [place] [address] December, [facility] [address] [id number] [address] [place] [address], [place] [address] December, [facility] [address] [id number] [address] [place] [address], [place] [address] December, [facility] [address] [id number] [address] [place] [address], [place] [address] Nov, [facility] [address] [id number] [address] [place] [address], [place] [address] 17 Nov, 2012 [facility] [address] [id number] [address] [place] [address], [place] [address] 08 Nov, 2012 [facility] [address] [id number] [address] [place] [address], [place] [address] 05 Oct, 2012 [facility] [address] [id number] [address] [place] [address], [place] [address] Jun, [facility] [address] [id number] [address] [place] [address], [place] [address] Jun, [facility] [address] [id number] [address] [place] [address], [place] [address] Jun, [facility] [address] [id number] [address] [place] [address], [place] [address] Jun, [facility] [address] [id number] [address] [place] [address], [place] [address] Apr, [facility] [address] [id number] [address] [place] [address], [place] [address] Mar, [facility] [address] [id number] [address] [place] [address], [place] [address] Mar, [facility] [address] [id number] [address] [place] [address], [place] [address] Jan, [facility] [address] [id number] [address] [place] [address], [place] [address] December, [facility] [address] [id number] [address] [place] [address], [place] [address] 16 Nov, 2011 [facility] [address] [id number] [address] [place] [address], [place] [address] Nov, [facility] [address] [id number] [address] [place] [address], [place] [address] 05 Nov, 2011 [facility] [address] [id number] [address] [place] [id number] Nov, [facility] [address] [id number] [address] [place] [id number] Aug, [facility] [address] [id number] [address] [place] [id number] Aug, [facility] [address] [id number] [address] [place] [id number] Jul, [facility] [address] [id number] [address] [place] [id number] Jun, [facility] [address] [facility] [id number] [address] [place] [id number] Jun, [facility] [address] [facility] [id number] [address] [place] [id number] Apr, [facility] [address] [facility] [id number] [address] [place] [id number] Feb, IMMUNIZATIONS No Known Immunizations SOCIAL HISTORY [...]
--- OUTSIDE RECORDS SUMMARY | 2020-02-11 01:24 | XMS REPORT ---
Author Author Elaine GALARZA Organization [facility] Address [address] [place] [address] Care Team Providers Care Member Of Parliament Name Role Phone MARI GALARZA Unavailable PROBLEMS Type Condition ICD9-CM Code YTI10-PE Code Onset Dates Condition S tatus SNOMED Code Problem ADHD, predominantly inattentive type F90.0 Active 69427558 Problem Major depressive disorder, recurrent episode, in full remission F33.42 Active 215135174 Problem Seasonal allergies J30.2 Active 4 91364020 Problem Moderate episode of recurrent major depressive disorder F33.1 Active 451065156 Problem Intractable migraine without aura and with status migr ainosus G43.011 Active 176908458 Problem Hyperlipidemia, unspecified hyperlipidemia type E7 8.5 Active 88663491 Problem Essential hypertension I10 Active 81258347 Problem Recurrent sinusitis J32.9 Active 675465015 Problem Primary insomnia F51.01 Active 397 2004 Problem Migraine without aura and without status migrain osus, not intractable G43.009 Active 647660170 Problem Non-seasonal allergic rhinitis due to pollen J30.1 Active 66333818 Problem Severe episode of recurrent major depressive disorder, without psychotic features F33.2 Active 45734560 Problem Depression, major, in remission F32.5 Active 86460107 ALLERGIES No Information ENCOUNTERS Encounter Location Date Diagnosis [facility] [address] [facility] [id number] [address] [place] [address] Nov, ADHD, predominantly inattent randall type F90.0 and Primary insomnia F51.01 [facility] [address] [facility] [id number] [address] [place] [address] Nov, [facility] [address] [facility] [id number] [address] [place] [address] Nov, ADHD, predominantly inattent randall type F90.0 [place] [id number] [facility] [id number] [address] [place] [address] 13 Nov, 2019 Depression, major, in remiss ion F32.5 ; Hyperlipidemia, unspecified hyperlipidemia type E78.5 ; Recurrent sinusitis J32.9 and Mammogram declined Z53.20 [facility] [address] [facility] [id number] [address] [place] [address] Oct, ADHD, predominantly inattent randall type F90.0 [place] [address] [facility] [id number] [address] [place] [address] 28 Sep, 2019 ADHD, predominantly inattent randall type F90.0 [place] [address] [facility] [id number] [address] [place] [address] Sep, [place] [address] [facility] [id number] [address] [place] [address] Sep, ADHD, predominantly inattent randall type F90.0 [place] [address] [place] [id number] [address] [place] [address] Aug, ADHD, predominantly inattent randall type F90.0 [place] [address] [place] [id number] [address] [place] [address] Jul, ADHD, predominantly inattent randall type F90.0 [place] [address] [facility] [id number] [address] [place] [address] Jun, ADHD, predominantly inattent randall type F90.0 ; Moderate episode of recurrent major depressive disorder F33.1 and Intractable migraine without aura and with status migrainosus G43.011 [place] [address] [facility] [id number] [address] [place] [address] 14 May, 2019 Severe episode of recurrent major depressive disorder, without psychotic features F33.2 [place] [address] [facility] [id number] [address] [place] [address] 07 May, 2019 [place] [address] [place] [id number] [address] [place] [address] Apr, [facility] [address] [id number] [address] [place] [address] Mar, Moderate episode of recurren t major depressive disorder F33.1 [facility] [address] [id number] [address] [place] [address] Mar, [facility] [address] [id number] [address] [place] [address] Feb, [facility] [address] [id number] [address] [place] [address] Feb, [facility] [address] [id number] [address] [place] [address] Jan, Major depressive disorder, r ecurrent episode, in full remission F33.42 [facility] [address] [facility] [id number] [address] [place] [address] Jan, Moderate episode of recurren t major depressive disorder F33.1 ; Non-seasonal allergic rhinitis due to pollen J30.1 ; Migraine without aura and without status migrainosus, not intractable G43.009 and Sinus congestion R09.81 [facility] [address] [facility] [id number] [address] [place] [address] Jan, [facility] [address] [facility] [id number] [address] [place] [address] December, Moderate episode of recurren t major depressive disorder F33.1 [facility] [address] [id number] [address] [place] [address] December, [facility] [address] [facility] [id number] [address] [place] [address] December, Moderate episode of recurren t major depressive disorder F33.1 [facility] [address] [facility] [id number] [address] [place] [address] Nov, Moderate episode of recurren t major depressive disorder F33.1 and Intractable migraine without aura and with status migrainosus G43.011 [facility] [id number] [place] [address] Nov, [facility] [address] [address] Oct, Major depressive disorder, r ecurrent episode, in full remission F33.42 ; Intractable migraine without aura and with status migrainosus G43.011 ; Weight gain R63.5 ; Vision changes H53.9 and Other [facility] (current) drug therapy Z79.899 [place] [address] [address] Oct, Encounter for pre-employment examination Z02.1 [place] [address] [address] Oct, [facility] [address] [address] Sep, Acute non-recurrent maxillar y sinusitis J01.00 [place] [address] [address] Sep, [place] [address] [address] Aug, [place] [address] [address] Jul, ADHD, predominantly inattent randall type F90.0 and Primary insomnia F51.01 [place] [address] [place] [id number] [address] [place] [address] Jun, ADHD, predominantly inattent randall type F90.0 [place] [address] [place] [id number] [address] [place] [address] May, ADHD, predominantly inattent randall type F90.0 ; Moderate episode of recurrent major depressive disorder F33.1 and Therapeutic drug monitoring Z51.81 [place] [address] [place] [id number] [address] [place] [address] May, [place] [address] [facility] [id number] [address] [place] [address] 28 Apr, 2018 ADHD, predominantly inattent randall type F90.0 [facility] [address] [facility] [id number] [address] [place] [address] 10 Apr, 2018 ADHD, predominantly inattent randall type F90.0 and Major depressive disorder, recurrent episode, in full remission F33.42 [place] [address] [place] [id number] [address] [place] [address] Mar, ADHD, predominantly inattent randall type F90.0 and Primary insomnia F51.01 [place] [address] [facility] [id number] [address] [place] [address] Mar, [place] [address] [place] [id number] [address] [place] [address] Mar, ADHD, predominantly inattent randall type F90.0 and Primary insomnia F51.01 [place] [address] [place] [id number] [address] [place] [address] Feb, ADHD, predominantly inattent randall type F90.0 and Primary insomnia F51.01 [place] [address] [place] [id number] [address] [place] [address] Jan, ADHD, predominantly inattent randall type F90.0 and Primary insomnia F51.01 [facility] [address] [facility] [id number] [address] [place] [address] December, Seasonal allergies J30.2 and Post-nasal drip R09.82 [facility] [address] [facility] [id number] [address] [place] [address] December, ADHD, predominantly inattent randall type F90.0 and Primary insomnia F51.01 [facility] [address] [facility] [id number] [address] [place] [address] Nov, ADHD, predominantly inattent randall type F90.0 [place] [address] [place] [id number] [address] [place] [address] Oct, ADHD, predominantly inattent randall type F90.0 [facility] [address] [id number] [address] [place] [address] Oct, ADHD, predominantly inattent randall type F90.0 ; Primary insomnia F51.01 and Screening, lipid Z13.220 [facility] [address] [id number] [address] [place] [address] Sep, ADHD, predominantly inattent randall type F90.0 [facility] [address] [id number] [address] [place] [address] Aug, ADHD, predominantly inattent randall type F90.0 and Primary insomnia F51.01 [facility] [address] [id number] [address] [place] [address] Jul, ADHD, predominantly inattent randall type F90.0 [facility] [address] [id number] [address] [place] [address] Jul, Primary insomnia F51.01 and ADHD, predominantly inattentive type F90.0 [facility] [address] [id number] [address] [place] [address] Jun, ADHD, predominantly inattent randall type F90.0 [facility] [address] [facility] [id number] [address] [place] [address] May, ADHD, predominantly inattent randall type F90.0 [facility] [address] [id number] [address] [place] [address] Apr, ADHD, predominantly inattent randall type F90.0 [facility] [address] [id number] [address] [place] [address] Mar, ADHD, predominantly inattent randall type F90.0 ; Primary insomnia F51.01 ; Major depressive disorder, recurrent episode, in full remission F33.42 and Acne comedone L70.0 [facility] [address] [facility] [id number] [address] [place] [address] Mar, Major depressive disorder, r ecurrent episode, in full remission F33.42 and ADHD, predominantly inattentive type F90.0 [place] [address] [place] [id number] [address] [place] [address] Feb, ADHD, predominantly inattent randall type F90.0 [place] [address] [place] [id number] [address] [place] [address] Feb, Primary insomnia F51.01 [place] [address] [place] [id number] [address] [place] [address] Jan, ADHD, predominantly inattent randall type F90.0 and Primary insomnia F51.01 [place] [address] [place] [id number] [address] [place] [address] December, ADHD, predominantly inattent randall type F90.0 and Primary insomnia F51.01 [place] [address] [place] [id number] [address] [place] [address] Oct, ADHD, predominantly inattent randall type F90.0 and Primary insomnia F51.01 [place] [address] [place] [id number] [address] [place] [address] Sep, ADHD, predominantly inattent randall type F90.0 and Primary insomnia F51.01 [place] [address] [place] [id number] [address] [place] [address] Aug, ADHD, predominantly inattent randall type F90.0 and Primary insomnia F51.01 [place] [address] [facility] [id number] [address] [place] [address] Jul, Major depressive disorder, r ecurrent episode, in full remission F33.42 ; ADHD, predominantly inattentive type F90.0 ; Primary insomnia F51.01 ; Acute non-recurrent maxillary sinusitis J01.00 and Screening, lipid Z13.220 [facility] [address] [facility] [id number] [address] [place] [address] Jun, Acute non-recurrent maxillar y sinusitis J01.00 [facility] [address] [id number] [address] [place] [address] Jun, ADHD, predominantly inattent randall type F90.0 [facility] [address] [id number] [address] [place] [address] May, [facility] [address] [id number] [address] [place] [address] Apr, [facility] [address] [id number] [address] [place] [address] Feb, Rash R21 and Scabies B86 [facility] [address] [id number] [address] [place] [address] Feb, ADHD, predominantly inattent randall type F90.0 and Major depressive disorder, recurrent episode, in full remission F33.42 [facility] [address] [id number] [address] [place] [address] Feb, [facility] [address] [id number] [address] [place] [address] Oct, [facility] [address] [id number] [address] [place] [address] Sep, [facility] [address] [id number] [address] [place] [address] Sep, [facility] [address] [id number] [address] [place] [address] Aug, [facility] [address] [id number] [address] [place] [address] Jul, [facility] [address] [id number] [address] [place] [address] Jun, [facility] [address] [id number] [address] [place] [address] May, [facility] [address] [id number] [address] [place] [address] May, ADHD, predominantly inattent randall type F90.0 and Major depressive disorder, recurrent episode, in full remission F33.42 [facility] [address] [id number] [address] [place] [address] Feb, Major depressive disorder, r ecurrent episode, moderate 296.32 [facility] [address] [id number] [address] [place] [address] Feb, [facility] [address] [id number] [address] [place] [address] Jan, [facility] [address] [id number] [address] [place] [address] Jan, [facility] [address] [id number] [address] [place] [address] December, [facility] [address] [id number] [address] [place] [address] Nov, [facility] [address] [id number] [address] [place] [address] Nov, [facility] [address] [id number] [address] [place] [address] Oct, [facility] [address] [id number] [address] [place] [address] Oct, [facility] [address] [id number] [address] [place] [address] Sep, [facility] [address] [id number] [address] [place] [address] Sep, [facility] [address] [id number] [address] [place] [address] Sep, [facility] [address] [id number] [address] [place] [address] Sep, [facility] [address] [id number] [address] [place] [address] Aug, [facility] [address] [id number] [address] [place] [address], [place] [address] Aug, [facility] [address] [id number] [address] [place] [address], [place] [address] Aug, [facility] [address] [id number] [address] [place] [address], [place] [address] Aug, [facility] [address] [id number] [address] [place] [address], [place] [address] Aug, [facility] [address] [id number] [address] [place] [address], [place] [address] Aug, [facility] [address] [id number] [address] [place] [address], [place] [address] Jul, [facility] [address] [id number] [address] [place] [address], [place] [address] Jul, [facility] [address] [id number] [address] [place] [address], [place] [address] Jun, [facility] [address] [id number] [address] [place] [address], [place] [address] Jun, [facility] [address] [id number] [address] [place] [address], [place] [address] May, [facility] [address] [id number] [address] [place] [address], [place] [address] May, [facility] [address] [id number] [address] [place] [address], [place] [address] Apr, [facility] [address] [id number] [address] [place] [address], [place] [address] Apr, [facility] [address] [id number] [address] [place] [address], [place] [address] Apr, [facility] [address] [id number] [address] [place] [address], [place] [address] Mar, [facility] [address] [id number] [address] [place] [address], [place] [address] Mar, [facility] [address] [id number] [facility] [place] [address] Mar, [facility] [address] [id number] [address] [place] [address], [place] [address] Mar, [facility] [address] [id number] [address] [place] [address], [place] [address] Feb, [facility] [address] [id number] [address] [place] [address], [place] [address] Feb, [facility] [address] [id number] [address] [place] [address], [place] [address] Feb, [facility] [address] [id number] [address] [place] [address], [place] [address] Feb, [facility] [address] [id number] [address] [place] [address], [place] [address] Feb, [facility] [address] [id number] [address] [place] [address], [place] [address] Feb, [facility] [address] [id number] [address] [place] [address], [place] [address] Jan, [facility] [address] [id number] [address] [place] [address], [place] [address] Jan, [facility] [address] [id number] [address] [place] [address], [place] [address] Jan, [facility] [address] [id number] [address] [place] [address], [place] [address] Jan, [facility] [address] [id number] [address] [place] [address], [place] [address] December, [facility] [address] [id number] [address] [place] [address], [place] [address] December, [facility] [address] [id number] [address] [place] [address], [place] [address] December, [facility] [address] [id number] [facility] [place] [address] December, [facility] [address] [id number] [facility] [place] [address] December, [facility] [address] [id number] [facility] [place] [address] December, [facility] [address] [id number] [address] [place] [address], [place] [address] December, [facility] [address] [id number] [address] [place] [address], [place] [address] December, [facility] [address] [id number] [address] [place] [address], [place] [address] December, [facility] [address] [id number] [address] [place] [address], [place] [address] December, [facility] [address] [id number] [address] [place] [address], [place] [address] Nov, [facility] [address] [id number] [address] [place] [address], [place] [address] Nov, [facility] [address] [id number] [address] [place] [address], [place] [address] Oct, [facility] [address] [id number] [address] [place] [address], [place] [address] Oct, [facility] [address] [id number] [address] [place] [address], [place] [address] Oct, [facility] [address] [id number] [address] [place] [address], [place] [address] Oct, [facility] [address] [id number] [address] [place] [address], [place] [address] Oct, [facility] [address] [id number] [address] [place] [address], [place] [address] Oct, [facility] [address] [id number] [address] [place] [address], [place] [address] Aug, [facility] [address] [id number] [address] [place] [address], [place] [address] Aug, [facility] [address] [id number] [address] [place] [address], [place] [address] Aug, [facility] [address] [id number] [address] [place] [address], [place] [address] Aug, [facility] [address] [id number] [address] [place] [address], [place] [address] Aug, [facility] [address] [id number] [address] [place] [address], [place] [address] Aug, [facility] [address] [id number] [address] [place] [address], [place] [address] Aug, [facility] [address] [id number] [address] [place] [address], [place] [address] Aug, [facility] [address] [id number] [address] [place] [address], [place] [address] Jul, [facility] [address] [id number] [address] [place] [address], [place] [address] Jul, [facility] [address] [id number] [address] [place] [address], [place] [address] Jun, [facility] [address] [id number] [address] [place] [place] [address], [place] [address] Jun, [facility] [address] [id number] [address] [place] [address], [place] [address] Jun, [facility] [address] [id number] [address] [place] [address], [place] [address] Jun, [facility] [address] [id number] [address] [place] [address], [place] [address] Jun, [facility] [address] [id number] [address] [place] [address], [place] [address] Jun, [facility] [address] [id number] [address] [place] [address], [place] [address] May, [facility] [address] [id number] [address] [place] [address], [place] [address] May, [facility] [address] [id number] [address] [place] [address], [place] [address] Apr, [facility] [address] [id number] [address] [place] [address], [place] [address] Apr, [facility] [address] [id number] [address] [place] [address], [place] [address] Mar, [facility] [address] [id number] [address] [place] [address], [place] [address] Mar, [facility] [address] [id number] [address] [place] [address], [place] [address] Mar, [facility] [address] [id number] [address] [place] [address], [place] [address] Feb, [facility] [address] [id number] [address] [place] [address], [place] [address] Jan, [facility] [address] [id number] [address] [place] [address], [place] [address] December, [facility] [address] [id number] [address] [place] [address], [place] [address] December, [facility] [address] [id number] [address] [place] [address], [place] [address] December, [facility] [address] [id number] [address] [place] [address], [place] [address] December, [facility] [address] [id number] [address] [place] [address], [place] [address] December, [facility] [address] [id number] [address] [place] [address], [place] [address] December, [facility] [address] [id number] [address] [place] [address], [place] [address] Nov, [facility] [address] [id number] [address] [place] [address], [place] [address] 17 Nov, 2012 [facility] [address] [id number] [address] [place] [address], [place] [address] 08 Nov, 2012 [facility] [address] [id number] [address] [place] [address], [place] [address] 05 Oct, 2012 [facility] [address] [id number] [address] [place] [address], [place] [address] 14 Jun, 2012 [facility] [address] [id number] [address] [place] [address], [place] [address] 14 Jun, 2012 [facility] [address] [id number] [address] [place] [address], [place] [address] Jun, [facility] [address] [id number] [address] [place] [address], [place] [address] Jun, [facility] [address] [id number] [address] [place] [address], [place] [address] Apr, [facility] [address] [id number] [address] [place] [address], [place] [address] Mar, [facility] [address] [id number] [address] [place] [address], [place] [address] Mar, [facility] [address] [id number] [address] [place] [address], [place] [address] Jan, [facility] [address] [id number] [address] [place] [address], [place] [address] December, [facility] [address] [id number] [address] [place] [address], [place] [address] 16 Nov, 2011 [facility] [address] [id number] [address] [place] [address], [place] [address] Nov, [facility] [address] [id number] [address] [place] [address], [place] [address] 05 Nov, 2011 [facility] [address] [id number] [address] [place] [address], [place] [address] Nov, [facility] [address] [id number] [address] [place] [address] Aug, [facility] [address] [id number] [address] [place] [address] Aug, [facility] [address] [id number] [address] [place] [address] Jul, [facility] [address] [facility] [id number] [address] [place] [address] Jun, [facility] [address] [facility] [id number] [address] [place] [address] Jun, [facility] [address] [facility] [id number] [address] [place] [address] Apr, [facility] [address] [facility] [id number] [address] [place] [address] Feb, IMMUNIZATIONS No Known Immunizations SOCIAL HISTORY [...]
--- OUTSIDE RECORDS SUMMARY | 2020-02-11 01:25 | XMS REPORT ---
Author Author Elaine GALARZA Organization [facility] Address [address] [place] [address] Care Team Providers Care Sanitation Lead Name Role Phone MARI GALARZA Unavailable PROBLEMS Type Condition ICD9-CM Code [id number] Code Onset Dates Condition S tatus SNOMED Code Problem ADHD, predominantly inattentive type F90.0 Active 99539226 Problem Primary insomnia F51.01 Active 397 2004 Problem Essential hypertension I10 Active 29130748 Problem Non-seasonal allergic rhinitis due to pollen J30.1 Active 04428947 Problem Major depressive disorder, recurrent episode, in full remission F33.42 Active 607283179 Problem Severe episode of recurrent major depressive disorder, without psychotic features F33.2 Active 74114495 Problem Seasonal allergies J30.2 Active 4 59786560 Problem Moderate episode of recurrent major depressive disorder F33.1 Active 483093458 Problem Intractable migraine without aura and with status migr ainosus G43.011 Active 190925121 Problem Migraine without aura and without status migrain osus, not intractable G43.009 Active 492490622 ALLERGIES No Information ENCOUNTERS Encounter Location Date Diagnosis [place] [address] [address] 28 Sep, 2019 ADHD, predominantly inattentive type F90 .0 [facility] [address] [address] Sep, [facility] [address] [address] Sep, ADHD, predominantly inattentive type F90 .0 [place] [address] [address] Aug, ADHD, predominantly inattentive type F90 .0 [place] [address] [address] Jul, ADHD, predominantly inattentive type F90 .0 [facility] [address] [address] Jun, ADHD, predominantly inattentive type F90 .0 ; Moderate episode of recurrent major depressive disorder F33.1 and Intractable migraine without aura and with status migrainosus G43.011 [facility] [address] [address] May, Severe episode of recurrent major depres sive disorder, without psychotic features F33.2 [facility] [address] [address] May, [facility] [address] [address] Apr, [facility] [address] [address] Mar, Moderate episode of recurrent major depr essive disorder F33.1 [facility] [address] [address] Mar, [facility] [address] [address] Feb, [facility] [address] [address] Feb, [facility] [address] [address] Jan, Major depressive disorder, recurrent epi sode, in full remission F33.42 [facility] [address] [address] Jan, Moderate episode of recurrent major depr essive disorder F33.1 ; Non- seasonal allergic rhinitis due to pollen J30.1 ; Migraine without aura and without status migrainosus, not intractable G43.009 and Sinus congestion R09.81 [facility] [address] [address] Jan, [facility] [address] [address] December, Moderate episode of recurrent major depr essive disorder F33.1 [facility] [address] [address] December, [facility] [address] [address] December, Moderate episode of recurrent major depr essive disorder F33.1 [place] [address] [address] Nov, Moderate episode of recurrent major depr essive disorder F33.1 and Intractable migraine without aura and with status migrainosus G43.011 [place] [address] [address] Nov, [place] [address] [address] Oct, Major depressive disorder, recurrent epi sode, in full remission F33.42 ; Intractable migraine without aura and with status migrainosus G43.011 ; Weight gain R63.5 ; Vision changes H53.9 and Other fci (current) drug therapy Z79.899 [place] [address] [address] 15 Oct, 2018 Encounter for pre-employment examination Z02.1 [place] [address] [address] 15 Oct, 2018 [facility] [address] [facility] [id number] [address] [address] Sep, Acute non-recurrent maxillar y sinusitis J01.00 [place] [address] [address] Sep, [place] [address] [address] Aug, [facility] [address] [address] Jul, ADHD, predominantly inattentive type F90 .0 and Primary insomnia F51.01 [facility] [address] [address] Jun, ADHD, predominantly inattentive type F90 .0 [place] [address] [address] May, ADHD, predominantly inattentive type F90 .0 ; Moderate episode of recurrent major depressive disorder F33.1 and Therapeutic drug monitoring Z51.81 [place] [address] [address] May, [place] [address] [address] Apr, ADHD, predominantly inattentive type F90 .0 [place] [address] [address] Apr, ADHD, predominantly inattentive type F90 .0 and Major depressive disorder, recurrent episode, in full remission F33.42 [place] [address] [address] Mar, ADHD, predominantly inattentive type F90 .0 and Primary insomnia F51.01 [place] [address] [address] Mar, [place] [address] [address] Mar, ADHD, predominantly inattentive type F90 .0 and Primary insomnia F51.01 [place] [address] [address] Feb, ADHD, predominantly inattentive type F90 .0 and Primary insomnia F51.01 [place] [address] [address] Jan, ADHD, predominantly inattentive type F90 .0 and Primary insomnia F51.01 [facility] [address] [facility] [id number] [address] [address] December, Seasonal allergies J30.2 and Post-nasal drip R09.82 [place] [address] [address] December, ADHD, predominantly inattentive type F90 .0 and Primary insomnia F51.01 [facility] [address] [address] Nov, ADHD, predominantly inattentive type F90 .0 [facility] [address] [address] Oct, ADHD, predominantly inattentive type F90 .0 [facility] [address] [address] Oct, ADHD, predominantly inattentive type F90 .0 ; Primary insomnia F51.01 and Screening, lipid Z13.220 [facility] [address] [address] Sep, ADHD, predominantly inattentive type F90 .0 [facility] [address] [address] Aug, ADHD, predominantly inattentive type F90 .0 and Primary insomnia F51.01 [facility] [address] [address] Jul, ADHD, predominantly inattentive type F90 .0 [facility] [address] [address] Jul, Primary insomnia F51.01 and ADHD, predom inantly inattentive type F90.0 [facility] [address] [address] Jun, ADHD, predominantly inattentive type F90 .0 [facility] [address] [address] May, ADHD, predominantly inattentive type F90 .0 [facility] [address] [address] Apr, ADHD, predominantly inattentive type F90 .0 [facility] [address] [address] Mar, ADHD, predominantly inattentive type F90 .0 ; Primary insomnia F51.01 ; Major depressive disorder, recurrent episode, in full remission F33.42 and Acne comedone L70.0 [place] [address] [place] [id number] Mar, Major depressive disorder, recurrent epi sode, in full remission F33.42 and ADHD, predominantly inattentive type F90.0 [place] [address] [address] Feb, ADHD, predominantly inattentive type F90 .0 [place] [address] [address] Feb, Primary insomnia F51.01 [place] [address] [address] Jan, ADHD, predominantly inattentive type F90 .0 and Primary insomnia F51.01 [place] [address] [address] December, ADHD, predominantly inattentive type F90 .0 and Primary insomnia F51.01 [place] [address] [address] Oct, ADHD, predominantly inattentive type F90 .0 and Primary insomnia F51.01 [place] [address] [address] Sep, ADHD, predominantly inattentive type F90 .0 and Primary insomnia F51.01 [place] [address] [address] Aug, ADHD, predominantly inattentive type F90 .0 and Primary insomnia F51.01 [place] [address] [address] Jul, Major depressive disorder, recurrent epi sode, in full remission F33.42 ; ADHD, predominantly inattentive type F90.0 ; Primary insomnia F51.01 ; Acute non-recurrent maxillary sinusitis J01.00 and Screening, lipid Z13.220 [facility] [address] [facility] [id number] [address] [address] Jun, Acute non-recurrent maxillar y sinusitis J01.00 [facility] [address] [address] Jun, ADHD, predominantly inattentive type F90 .0 [facility] [address] [address] May, [facility] [address] [address] Apr, [facility] [address] [facility] [id number] [address] [address] Feb, Rash R21 and Scabies B86 [facility] [address] [address] Feb, ADHD, predominantly inattentive type F90 .0 and Major depressive disorder, recurrent episode, in full remission F33.42 [facility] [address] [address] Feb, [facility] [address] [address] Oct, [facility] [address] [address] Sep, [facility] [address] [address] Sep, [facility] [address] [address] Aug, [facility] [address] [address] Jul, [facility] [address] [address] Jun, [facility] [address] [address] May, [facility] [address] [place] [address] May, ADHD, predominantly inattentive type F90 .0 and Major depressive disorder, recurrent episode, in full remission F33.42 [facility] [address] [place] [id number] [place] [address] Feb, Major depressive disorder, recurrent epi sode, moderate 296.32 [facility] [address] [address] Feb, [facility] [address] [address] Jan, [facility] [address] [address] Jan, [facility] [address] [address] December, [facility] [address] [address] Nov, [facility] [address] [address] Nov, [facility] [address] [address] Oct, [facility] [address] [address] Oct, [facility] [address] [address] Sep, [facility] [address] [address] Sep, [facility] [address] [address] Sep, [facility] [address] [address] Sep, [facility] [address] [address] Aug, [facility] [address] [address] Aug, [facility] [address] [id number] [place] [address] Aug, [facility] [address] [id number] [place] [address] Aug, [facility] [address] [id number] [place] [address] Aug, [facility] [address] [id number] [place] [address] Aug, [facility] [address] [facility] [id number] [place] [address] Jul, [facility] [address] [id number] [place] [address] Jul, [facility] [address] [id number] [place] [address] Jun, [facility] [address] [id number] [place] [address] Jun, [facility] [address] [id number] [place] [address] May, [facility] [address] [id number] [place] [address] May, [facility] [address] [id number] [place] [address] Apr, [facility] [address] [id number] [place] [address] Apr, [facility] [address] [id number] [place] [address] Apr, [facility] [address] [id number] [place] [address] Mar, [facility] [address] [id number] [place] [address] Mar, [facility] [address] [id number] [place] [address] Mar, [facility] [address] [id number] [place] [address] Mar, [facility] [address] [id number] [place] [address] Feb, [facility] [address] [id number] [place] [address] Feb, [facility] [address] [id number] [place] [address] Feb, [facility] [address] [id number] [place] [address] Feb, [facility] [address] [id number] [place] [address] Feb, [facility] [address] [id number] [place] [address] Feb, [facility] [address] [id number] [place] [address] Jan, [facility] [address] [id number] [place] [address] Jan, [facility] [address] [id number] [place] [address] Jan, [facility] [address] [id number] [place] [address] Jan, [facility] [address] [id number] [place] [address] December, [facility] [address] [id number] [place] [address] December, [facility] [address] [id number] [place] [address] December, [facility] [address] [id number] [place] [address] December, [facility] [address] [id number] [place] [address] December, [facility] [address] [id number] [place] [address] December, [facility] [address] [id number] [place] [address] December, [facility] [address] [id number] [place] [address] December, [facility] [address] [id number] [place] [address] December, [facility] [address] [id number] [place] [address] December, [facility] [address] [id number] [place] [address] Nov, [facility] [address] [id number] [place] [address] Nov, [facility] [address] [id number] [place] [address] Oct, [facility] [address] [id number] [place] [address] Oct, [facility] [address] [id number] [place] [address] Oct, [facility] [address] [id number] [place] [address] Oct, [facility] [address] [id number] [place] [address] Oct, [facility] [address] [id number] [place] [address] Oct, [facility] [address] [id number] [place] [address] Aug, [facility] [address] [id number] [place] [address] Aug, [facility] [address] [id number] [place] [address] Aug, [facility] [address] [id number] [place] [address] Aug, [facility] [address] [id number] [place] [address] Aug, [facility] [address] [id number] [place] [address] Aug, [facility] [address] [id number] [place] [address] Aug, [facility] [address] [id number] [place] [address] Aug, [facility] [address] [id number] [place] [address] Jul, [facility] [address] [id number] [place] [address] Jul, [facility] [address] [id number] [place] [address] Jun, [facility] [address] [id number] [place] [address] Jun, [facility] [address] [id number] [place] [address] Jun, [facility] [address] [id number] [place] [address] Jun, [facility] [address] [id number] [place] [address] Jun, [facility] [address] [id number] [place] [address] Jun, [facility] [address] [id number] [place] [address] May, [facility] [address] [id number] [place] [address] May, [facility] [address] [id number] [place] [address] 16 Apr, 2013 [facility] [address] [id number] [place] [address] 12 Apr, 2013 [facility] [address] [id number] [place] [address] Mar, [facility] [address] [id number] [place] [address] Mar, [facility] [address] [id number] [place] [address] Mar, [facility] [address] [id number] [place] [address] Feb, [facility] [address] [id number] [place] [address] Jan, [facility] [address] [id number] [place] [address] December, [facility] [address] [id number] [place] [address] December, [facility] [address] [id number] [place] [address] December, [facility] [address] [id number] [place] [address] December, [facility] [address] [id number] [place] [address] December, [facility] [address] [id number] [place] [address] December, [facility] [address] [id number] [place] [address] Nov, [facility] [address] [id number] [place] [address] Nov, [facility] [address] [id number] [place] [address] Nov, [facility] [address] [id number] [place] [address] Oct, [facility] [address] [id number] [place] [address] Jun, [facility] [address] [id number] [place] [address] Jun, [facility] [address] [id number] [place] [address] Jun, [facility] [address] [id number] [place] [address] Jun, [facility] [address] [id number] [place] [address] 18 Apr, 2012 [facility] [address] [id number] [place] [address] Mar, [facility] [address] [place] [id number] [place] [address] Mar, [facility] [address] [id number] [place] [address] Jan, [facility] [address] [id number] [place] [address] December, [facility] [address] [id number] [place] [address] Nov, [facility] [address] [place] [id number] [place] [address] Nov, [facility] [address] [id number] [place] [address] Nov, [facility] [address] [id number] [place] [address] Nov, [facility] [address] [id number] [place] [address] Aug, [facility] [address] [place] [address] [id number] [place] [address] Aug, [facility] [address] [id number] [place] [address] Jul, [facility] [address] [id number] [place] [address] Jun, [facility] [address] [place] [id number] [place] [address] Jun, [facility] [address] [id number] [place] [address] 14 Apr, 2011 [facility] [address] [id number] [place] [address] Feb, IMMUNIZATIONS No Known Immunizations SOCIAL HISTORY [...]
--- OUTSIDE RECORDS SUMMARY | 2020-02-11 01:25 | XMS REPORT ---
Author Author Elaine MCMULLEN Organization 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 Name Role Phone MERVIN MCMULLEN Unavailable PROBLEMS Type Condition ICD9-CM Code YOL61-TD Code Onset Dates Condition S tatus SNOMED Code Problem ADHD, predominantly inattentive type F90.0 Active 83778391 Problem Primary insomnia F51.01 Active 397 2004 Problem Essential hypertension I10 Active 86681867 Problem Non-seasonal allergic rhinitis due to pollen J30.1 Active 63956825 Problem Major depressive disorder, recurrent episode, in full remission F33.42 Active 511737267 Problem Severe episode of recurrent major depressive disorder, without psychotic features F33.2 Active 13389093 Problem Seasonal allergies J30.2 Active 4 07589194 Problem Moderate episode of recurrent major depressive disorder F33.1 Active 454518068 Problem Intractable migraine without aura and with status migr ainosus G43.011 Active 726691278 Problem Migraine without aura and without status migrain osus, not intractable G43.009 Active 746324108 ALLERGIES No Information ENCOUNTERS Encounter Location Date Diagnosis [place] [address] [address] 28 Sep, 2019 ADHD, predominantly inattentive type F90 .0 [facility] [address] [address] Sep, [facility] [address] [address] Sep, ADHD, predominantly inattentive type F90 .0 [facility] [address] [address] Aug, ADHD, predominantly inattentive type F90 .0 [place] [address] [address] Jul, ADHD, predominantly inattentive type F90 .0 [facility] [address] [address] Jun, ADHD, predominantly inattentive type F90 .0 ; Moderate episode of recurrent major depressive disorder F33.1 and Intractable migraine without aura and with status migrainosus G43.011 [facility] [address] [address] May, Severe episode of recurrent major depres sive disorder, without psychotic features F33.2 [facility] [address] [address] May, [facility] [address] [address] Apr, [facility] [address] [address] Mar, Moderate episode of recurrent major depr essive disorder F33.1 [facility] [address] [address] Mar, [facility] [address] [address] Feb, [facility] [address] [address] Feb, [facility] [address] [address] Jan, Major depressive disorder, recurrent epi sode, in full remission F33.42 [facility] [address] [address] Jan, Moderate episode of recurrent major depr essive disorder F33.1 ; Non- seasonal allergic rhinitis due to pollen J30.1 ; Migraine without aura and without status migrainosus, not intractable G43.[address].81 [facility] [address] [address] Jan, [facility] [address] [address] December, Moderate episode of recurrent major depr essive disorder F33.1 [facility] [address] [address] December, [facility] [address] [address] December, Moderate episode of recurrent major depr essive disorder F33.1 [place] [address] [address] Nov, Moderate episode of recurrent major depr essive disorder F33.1 and Intractable migraine without aura and with status migrainosus G43.011 [place] [address] [address] Nov, 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 [address] [place] [id number] [place] [address] 15 Oct, 2018 [facility] [address] [facility] [id number] [address] [place] [address] Sep, Acute non-recurrent maxillar y sinusitis J01.00 [facility] [address] [place] [id number] [place] [address] Sep, [place] [address] [address] Aug, [facility] [address] [place] [id number] [place] [address] Jul, ADHD, predominantly inattentive type F90 .0 and Primary insomnia F51.01 [place] [address] [address] Jun, ADHD, predominantly inattentive type F90 .0 [place] [address] [address] May, ADHD, predominantly inattentive type F90 .0 ; Moderate episode of recurrent major depressive disorder F33.1 and Therapeutic drug monitoring Z51.81 [place] [address] [address] May, [place] [address] [address] Apr, ADHD, predominantly inattentive type F90 .0 [place] [address] [address] Apr, ADHD, predominantly inattentive type F90 .0 and Major depressive disorder, recurrent episode, in full remission F33.42 [place] [address] [address] Mar, ADHD, predominantly inattentive type F90 .0 and Primary insomnia F51.01 [place] [address] [address] Mar, [place] [address] [address] Mar, ADHD, predominantly inattentive type F90 .0 and Primary insomnia F51.01 [place] [address] [address] Feb, ADHD, predominantly inattentive type F90 .0 and Primary insomnia F51.01 [place] [address] [address] Jan, ADHD, predominantly inattentive type F90 .0 and Primary insomnia F51.01 [facility] [address] [facility] [id number] [address] [place] [address] December, Seasonal allergies J30.2 and Post-nasal drip R09.82 [facility] [address] [address] December, ADHD, predominantly inattentive type F90 .0 and Primary insomnia F51.01 [place] [address] [address] Nov, ADHD, predominantly inattentive type F90 .0 [place] [address] [address] Oct, ADHD, predominantly inattentive type F90 .0 [place] [address] [address] Oct, ADHD, predominantly inattentive type F90 .0 ; Primary insomnia F51.01 and Screening, lipid Z13.220 [place] [address] [address] Sep, ADHD, predominantly inattentive type F90 .0 [place] [address] [address] Aug, ADHD, predominantly inattentive type F90 .0 and Primary insomnia F51.01 [place] [address] [address] Jul, ADHD, predominantly inattentive type F90 .0 [place] [address] [address] Jul, Primary insomnia F51.01 and ADHD, predom inantly inattentive type F90.0 [place] [address] [address] Jun, ADHD, predominantly inattentive type F90 .0 [place] [address] [address] May, ADHD, predominantly inattentive type F90 .0 [facility] [address] [address] Apr, ADHD, predominantly inattentive type F90 .0 [place] [address] [address] Mar, ADHD, predominantly inattentive type F90 .0 ; Primary insomnia F51.01 ; Major depressive disorder, recurrent episode, in full remission F33.42 and Acne comedone L70.0 [place] [address] [address] Mar, Major depressive disorder, recurrent epi sode, in full remission F33.42 and ADHD, predominantly inattentive type F90.0 [place] [address] [address] Feb, ADHD, predominantly inattentive type F90 .0 [place] [address] [address] Feb, Primary insomnia F51.01 [place] [address] [address] Jan, ADHD, predominantly inattentive type F90 .0 and Primary insomnia F51.01 [place] [address] [address] December, ADHD, predominantly inattentive type F90 .0 and Primary insomnia F51.01 [place] [address] [address] Oct, ADHD, predominantly inattentive type F90 .0 and Primary insomnia F51.01 [place] [address] [address] Sep, ADHD, predominantly inattentive type F90 .0 and Primary insomnia F51.01 [place] [address] [address] Aug, ADHD, predominantly inattentive type F90 .0 and Primary insomnia F51.01 [place] [address] [address] Jul, Major depressive disorder, recurrent epi sode, in full remission F33.42 ; ADHD, predominantly inattentive type F90.0 ; Primary insomnia F51.01 ; Acute non-recurrent maxillary sinusitis J01.00 and Screening, lipid Z13.220 [facility] [address] [facility] [id number] [place] [address] Jun, Acute non-recurrent maxillar y sinusitis J01.00 [facility] [address] [address] Jun, ADHD, predominantly inattentive type F90 .0 [facility] [address] [address] May, [facility] [address] [address] Apr, [facility] [address] [facility] [id number] [place] [address] Feb, Rash R21 [address] Sc[address]86 [facility] [address] [address] Feb, ADHD, predominantly inattentive type F90 .0 and Major depressive disorder, recurrent episode, in full remission F33.42 [facility] [address] [address] Feb, [facility] [address] [address] Oct, [facility] [address] [address] Sep, [facility] [address] [address] Sep, [facility] [address] [address] Aug, [facility] [address] [address] Jul, [facility] [address] [address] Jun, [facility] [address] [address] May, [facility] [address] [address] May, ADHD, predominantly inattentive type F90 .0 and Major depressive disorder, recurrent episode, in full remission F33.42 [facility] [address] [place] [id number] [place] [address] Feb, Major depressive disorder, recurrent epi sode, moderate 296.32 [facility] [address] [place] [id number] [place] [address] Feb, [facility] [address] [address] Jan, [facility] [address] [address] Jan, [facility] [address] [address] December, [facility] [address] [address] Nov, [facility] [address] [address] Nov, [facility] [address] [place] [id number] [place] [address] Oct, [facility] [address] [address] Oct, [facility] [address] [place] [id number] [place] [address] Sep, [facility] [address] [place] [id number] [place] [address] Sep, [facility] [address] [place] [id number] [place] [address] Sep, [facility] [address] [address] Sep, [facility] [address] [place] [id number] [place] [address] Aug, [facility] [address] [address] Aug, [facility] [address] [id number] [place] [address] Aug, [facility] [address] [id number] [place] [address] Aug, [facility] [address] [id number] [place] [address] Aug, [facility] [address] [id number] [place] [address] Aug, [facility] [address] [id number] [place] [address] Jul, [facility] [address] [id number] [place] [address] Jul, [facility] [address] [id number] [place] [address] Jun, [facility] [address] [place] [id number] [place] [address] Jun, [facility] [address] [id number] [place] [address] May, [facility] [address] [id number] [place] [address] May, [facility] [address] [id number] [place] [address] Apr, [facility] [address] [id number] [place] [address] Apr, [facility] [address] [id number] [place] [address] Apr, [facility] [address] [id number] [place] [address] Mar, [facility] [address] [id number] [place] [address] Mar, [facility] [address] [id number] [place] [address] Mar, [facility] [address] [id number] [place] [address] Mar, [facility] [address] [facility] [id number] [facility] [place] [address] Feb, [facility] [address] [facility] [id number] [facility] [place] [address] Feb, [facility] [address] [id number] [facility] [place] [address] Feb, [facility] [address] [id number] [facility] [place] [address] Feb, [facility] [address] [facility] [id number] [facility] [place] [address] Feb, [facility] [address] [id number] [place] [address] Feb, [facility] [address] [id number] [place] [address] Jan, [facility] [address] [id number] [place] [address] Jan, [facility] [address] [id number] [place] [address] Jan, [facility] [address] [id number] [place] [address] Jan, [facility] [address] [id number] [place] [address] December, [facility] [address] [id number] [place] [address] December, [facility] [address] [id number] [place] [address] December, [facility] [address] [id number] [place] [address] December, [facility] [address] [id number] [place] [address] December, [facility] [address] [id number] [place] [address] December, [facility] [address] [id number] [place] [address] December, [facility] [address] [facility] [id number] [place] [address] December, [facility] [address] [facility] [id number] [place] [address] December, [facility] [address] [id number] [place] [address] December, [facility] [address] [facility] [id number] [place] [address] Nov, [facility] [address] [facility] [id number] [place] [address] Nov, [facility] [address] [id number] [place] [address] Oct, [facility] [address] [id number] [place] [address] Oct, [facility] [address] [id number] [place] [address] Oct, [facility] [address] [id number] [place] [address] Oct, [facility] [address] [id number] [place] [address] Oct, [facility] [address] [id number] [place] [address] Oct, [facility] [address] [id number] [place] [address] Aug, [facility] [address] [facility] [id number] [place] [address] Aug, [facility] [address] [id number] [place] [address] Aug, [facility] [address] [id number] [place] [address] Aug, [facility] [address] [id number] [place] [address] Aug, [facility] [address] [id number] [place] [address] Aug, [facility] [address] [id number] [place] [address] Aug, [facility] [address] [id number] [place] [address] Aug, [facility] [address] [id number] [place] [address] Jul, [facility] [address] [id number] [place] [address] Jul, [facility] [address] [id number] [place] [address] Jun, [facility] [address] [id number] [place] [address] Jun, [facility] [address] [place] [id number] [place] [address] Jun, [facility] [address] [id number] [place] [address] Jun, [facility] [address] [id number] [place] [address] Jun, [facility] [address] [id number] [place] [address] Jun, [facility] [address] [id number] [place] [address] May, [facility] [address] [id number] [place] [address] May, [facility] [address] [id number] [place] [address] 16 Apr, 2013 [facility] [address] [id number] [place] [address] 12 Apr, 2013 [facility] [address] [id number] [place] [address] Mar, [facility] [address] [id number] [place] [address] Mar, [facility] [address] [id number] [facility] [place] [address] Mar, [facility] [address] [id number] [facility] [place] [address] Feb, [facility] [address] [id number] [facility] [place] [address] Jan, [facility] [address] [id number] [place] [address] December, [facility] [address] [id number] [facility] [place] [address] December, [facility] [address] [id number] [place] [address] December, [facility] [address] [id number] [place] [address] December, [facility] [address] [id number] [place] [address] December, [facility] [address] [id number] [place] [address] December, [facility] [address] [id number] [place] [address] Nov, [facility] [address] [id number] [place] [address] Nov, [facility] [address] [id number] [place] [address] 08 Nov, 2012 [facility] [address] [id number] [place] [address] Oct, [facility] [address] [id number] [place] [address] Jun, [facility] [address] [id number] [place] [address] Jun, [facility] [address] [id number] [place] [address] Jun, [facility] [address] [id number] [place] [address] Jun, [facility] [address] [id number] [place] [address] Apr, [facility] [address] [id number] [place] [address] Mar, [facility] [address] [id number] [place] [address] Mar, [facility] [address] [id number] [place] [address] Jan, [facility] [address] [id number] [place] [address] December, [facility] [address] [id number] [place] [address] Nov, [facility] [address] [id number] [place] [address] Nov, [facility] [address] [id number] [place] [address] Nov, [facility] [address] [id number] [place] [address] Nov, [facility] [address] [id number] [place] [address] Aug, [facility] [address] [id number] [place] [address] Aug, [facility] [address] [id number] [place] [address] Jul, [facility] [address] [id number] [place] [address] Jun, [facility] [id number] [place] [address] Jun, [facility] [address] [id number] [place] [address] 14 Apr, 2011 [facility] [id number] [place] [address] Feb, IMMUNIZATIONS No Known Immunizations SOCIAL HISTORY [...]
--- OUTSIDE RECORDS SUMMARY | 2020-02-11 01:25 | XMS REPORT ---
Author Author Elaine BASURTO Organization [facility] Address [address] [place] [address] Care Team Providers Care Election Assistant Name Role Phone SB TERESA Unavailable PROBLEMS Type Condition ICD9-CM Code IML64-ZL Code Onset Dates Condition S tatus SNOMED Code Problem ADHD, predominantly inattentive type F90.0 Active 75458882 Problem Major depressive disorder, recurrent episode, in full remission F33.42 Active 481488870 Problem Seasonal allergies J30.2 Active 4 16621455 Problem Moderate episode of recurrent major depressive disorder F33.1 Active 598817844 Problem Intractable migraine without aura and with status migr ainosus G43.011 Active 741781049 Problem Hyperlipidemia, unspecified hyperlipidemia type E7 8.5 Active 52763423 Problem Essential hypertension I10 Active 75180901 Problem Recurrent sinusitis J32.9 Active 962501323 Problem Primary insomnia F51.01 Active 397 2004 Problem Migraine without aura and without status migrain osus, not intractable G43.009 Active 149960891 Problem Non-seasonal allergic rhinitis due to pollen J30.1 Active 67284260 Problem Severe episode of recurrent major depressive disorder, without psychotic features F33.2 Active 76549247 Problem Depression, major, in remission F32.5 Active 96631044 ALLERGIES No Information ENCOUNTERS Encounter Location Date Diagnosis [facility] [address] [facility] [id number] [address] [place] [address] Nov, ADHD, predominantly inattent randall type F90.0 [facility] [address] [place] [id number] [address] [place] [address] Nov, Depression, major, in remiss ion F32.5 ; Hyperlipidemia, unspecified hyperlipidemia type E78.5 ; Recurrent sinusitis J32.9 and Mammogram declined Z53.20 [facility] [address] [facility] [id number] [address] [place] [address] Oct, ADHD, predominantly inattent randall type F90.0 [facility] [address] [id number] [address] [place] [address] Sep, ADHD, predominantly inattent randall type F90.0 [facility] [address] [facility] [id number] [address] [place] [address] Sep, [facility] [address] [facility] [id number] [address] [place] [address] Sep, ADHD, predominantly inattent randall type F90.0 [facility] [address] [facility] [id number] [address] [place] [address] Aug, ADHD, predominantly inattent randall type F90.0 [facility] [address] [facility] [id number] [address] [place] [address] Jul, ADHD, predominantly inattent randall type F90.0 [facility] [address] [facility] [id number] [address] [place] [address] Jun, ADHD, predominantly inattent randall type F90.0 ; Moderate episode of recurrent major depressive disorder F33.1 and Intractable migraine without aura and with status migrainosus G43.011 [facility] [address] [facility] [id number] [address] [place] [address] 14 May, 2019 Severe episode of recurrent major depressive disorder, without psychotic features F33.2 [facility] [address] [facility] [id number] [address] [place] [address] May, [facility] [address] [facility] [id number] [address] [place] [address] Apr, [facility] [address] [facility] [id number] [address] [place] [address] Mar, Moderate episode of recurren t major depressive disorder F33.1 [facility] [address] [facility] [id number] [address] [place] [address] Mar, [facility] [address] [id number] [address] [place] [address] Feb, [facility] [address] [id number] [address] [place] [address] Feb, [facility] [address] [id number] [address] [place] [address] Jan, Major depressive disorder, r ecurrent episode, in full remission F33.42 [facility] [address] [id number] [address] [place] [address] Jan, Moderate episode of recurren t major depressive disorder F33.1 ; Non-seasonal allergic rhinitis due to pollen J30.1 ; Migraine without aura and without status migrainosus, not intractable G43.009 and Sinus congestion R09.81 [facility] [address] [id number] [address] [place] [address] Jan, [facility] [address] [id number] [address] [place] [address] December, Moderate episode of recurren t major depressive disorder F33.1 [facility] [address] [id number] [address] [place] [address] December, [facility] [address] [id number] [address] [place] [address] December, Moderate episode of recurren t major depressive disorder F33.1 [facility] [address] [id number] [address] [place] [address] Nov, Moderate episode of recurren t major depressive disorder F33.1 and Intractable migraine without aura and with status migrainosus G43.011 [facility] [address] [id number] [address] [place] [address] Nov, [facility] [address] [id number] [address] [place] [address] Oct, Major depressive disorder, r ecurrent episode, in full remission F33.42 ; Intractable migraine without aura and with status migrainosus G43.011 ; Weight gain R63.5 ; Vision changes H53.9 and 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 [facility] [address] [facility] [id number] [address] [place] [address] Oct, Encounter for pre-employment examination Z02.1 [facility] [address] [id number] [address] [place] [address] Oct, [facility] [address] [id number] [address] [place] [address] Sep, Acute non-recurrent maxillar y sinusitis J01.00 [facility] [address] [id number] [address] [place] [address] Sep, [facility] [address] [id number] [address] [place] [address] Aug, [facility] [address] [facility] [id number] [address] [place] [address] Jul, ADHD, predominantly inattent randall type F90.0 and Primary insomnia F51.01 [facility] [address] [id number] [address] [place] [address] Jun, ADHD, predominantly inattent randall type F90.0 [facility] [address] [facility] [id number] [address] [place] [address] May, ADHD, predominantly inattent randall type F90.0 ; Moderate episode of recurrent major depressive disorder F33.1 and Therapeutic drug monitoring Z51.81 [facility] [address] [id number] [address] [place] [address] May, [facility] [address] [facility] [id number] [address] [place] [address] 28 Apr, 2018 ADHD, predominantly inattent randall type F90.0 [facility] [address] [facility] [id number] [address] [place] [address] 10 Apr, 2018 ADHD, predominantly inattent randall type F90.0 and Major depressive disorder, recurrent episode, in full remission F33.42 [facility] [address] [facility] [id number] [address] [place] [address] Mar, ADHD, predominantly inattent randall type F90.0 and Primary insomnia F51.01 [facility] [address] [facility] [id number] [address] [place] [address] Mar, [place] [address] [place] [id number] [address] [place] [address] Mar, ADHD, predominantly inattent randall type F90.0 and Primary insomnia F51.01 [place] [address] [facility] [id number] [address] [place] [address] Feb, ADHD, predominantly inattent randall type F90.0 and Primary insomnia F51.01 [place] [address] [place] [id number] [address] [place] [address] Jan, ADHD, predominantly inattent randall type F90.0 and Primary insomnia F51.01 [facility] [address] [facility] [id number] [address] [place] [address] December, Seasonal allergies J30.2 and Post-nasal drip R09.82 [facility] [address] [facility] [id number] [address] [place] [address] December, ADHD, predominantly inattent randall type F90.0 and Primary insomnia F51.01 [place] [address] [facility] [id number] [address] [place] [address] Nov, ADHD, predominantly inattent randall type F90.0 [place] [address] [facility] [id number] [address] [place] [address] Oct, ADHD, predominantly inattent randall type F90.0 [facility] [address] [facility] [id number] [address] [place] [address] Oct, ADHD, predominantly inattent randall type F90.0 ; Primary insomnia F51.01 and Screening, lipid Z13.220 [place] [address] [id number] [address] [place] [address] Sep, ADHD, predominantly inattent randall type F90.0 [facility] [address] [id number] [address] [place] [address] Aug, ADHD, predominantly inattent randall type F90.0 and Primary insomnia F51.01 [facility] [address] [id number] [address] [place] [address] Jul, ADHD, predominantly inattent randall type F90.0 [facility] [address] [id number] [address] [place] [address] Jul, Primary insomnia F51.01 and ADHD, predominantly inattentive type F90.0 [facility] [address] [id number] [address] [place] [address] Jun, ADHD, predominantly inattent randall type F90.0 [facility] [address] [facility] [id number] [address] [place] [address] May, ADHD, predominantly inattent randall type F90.0 [facility] [address] [id number] [address] [place] [address] Apr, ADHD, predominantly inattent randall type F90.0 [facility] [address] [id number] [address] [place] [address] Mar, ADHD, predominantly inattent randall type F90.0 ; Primary insomnia F51.01 ; Major depressive disorder, recurrent episode, in full remission F33.42 and Acne comedone L70.0 [facility] [address] [id number] [address] [place] [address] Mar, Major depressive disorder, r ecurrent episode, in full remission F33.42 and ADHD, predominantly inattentive type F90.0 [facility] [address] [id number] [address] [place] [address] Feb, ADHD, predominantly inattent randall type F90.0 [facility] [address] [facility] [id number] [address] [place] [address] Feb, Primary insomnia F51.01 [facility] [address] [facility] [id number] [address] [place] [address] Jan, ADHD, predominantly inattent randall type F90.0 and Primary insomnia F51.01 [facility] [address] [facility] [id number] [address] [place] [address] December, ADHD, predominantly inattent randall type F90.0 and Primary insomnia F51.01 [place] [address] [facility] [id number] [address] [place] [address] Oct, ADHD, predominantly inattent randall type F90.0 and Primary insomnia F51.01 [place] [address] [facility] [id number] [address] [place] [address] Sep, ADHD, predominantly inattent randall type F90.0 and Primary insomnia F51.01 [place] [address] [facility] [id number] [address] [place] [address] Aug, ADHD, predominantly inattent randall type F90.0 and Primary insomnia F51.01 [place] [address] [facility] [id number] [address] [place] [address] Jul, Major depressive disorder, r ecurrent episode, in full remission F33.42 ; ADHD, predominantly inattentive type F90.0 ; Primary insomnia F51.01 ; Acute non-recurrent maxillary sinusitis J01.00 and Screening, lipid Z13.220 [facility] [address] [facility] [id number] [address] [place] [address] Jun, Acute non-recurrent maxillar y sinusitis J01.00 [facility] [address] [facility] [id number] [address] [place] [address] Jun, ADHD, predominantly inattent randall type F90.0 [facility] [address] [facility] [id number] [address] [place] [address] May, [facility] [address] [id number] [address] [place] [id number] 07 Apr, 2016 [facility] [address] [id number] [address] [place] [address] Feb, 2016 Rash R21 and Scabies B86 [facility] [address] [id number] [address] [place] [address] Feb, ADHD, predominantly inattent randall type F90.0 and Major depressive disorder, recurrent episode, in full remission F33.42 [facility] [address] [id number] [address] [place] [address] Feb, [facility] [address] [id number] [address] [place] [id number] Oct, [facility] [address] [id number] [address] [place] [address] Sep, [facility] [address] [id number] [address] [place] [address] Sep, [facility] [address] [id number] [address] [place] [phone] Aug, [facility] [address] [id number] [address] [place] [address] Jul, [facility] [address] [id number] [address] [place] [address] Jun, [facility] [address] [id number] [address] [place] [address] May, [facility] [address] [id number] [address] [place] [address] May, ADHD, predominantly inattent randall type F90.0 and Major depressive disorder, recurrent episode, in full remission F33.42 [facility] [address] [id number] [address] [place] [address] Feb, Major depressive disorder, r ecurrent episode, moderate 296.32 [facility] [address] [id number] [address] [place] [address], [place] [address] Feb, [facility] [address] [id number] [address] [place] [address], [place] [address] Jan, [facility] [address] [id number] [address] [place] [address], [place] [address] Jan, [facility] [address] [id number] [address] [place] [address], [place] [address] December, [facility] [address] [id number] [address] [place] [address], [place] [address] Nov, [facility] [address] [id number] [address] [place] [address], [place] [address] Nov, [facility] [address] [id number] [address] [place] [address], [place] [address] Oct, [facility] [address] [id number] [address] [place] [address], [place] [address] Oct, [facility] [address] [id number] [address] [place] [address], [place] [address] Sep, [facility] [address] [id number] [address] [place] [address], [place] [address] Sep, [facility] [address] [id number] [address] [place] [address], [place] [address] Sep, [facility] [address] [id number] [address] [place] [address], [place] [address] Sep, [facility] [address] [id number] [address] [place] [address], [place] [address] Aug, [facility] [address] [id number] [address] [place] [address], [place] [address] Aug, [facility] [address] [id number] [address] [place] [address], [place] [address] Aug, [facility] [address] [id number] [address] [place] [address], [place] [address] Aug, [facility] [address] [id number] [address] [place] [address], [place] [address] Aug, [facility] [address] [id number] [address] [place] [address], [place] [address] Aug, [facility] [address] [id number] [address] [place] [address], [place] [address] Jul, [facility] [address] [id number] [address] [place] [address], [place] [address] Jul, [facility] [address] [id number] [address] [place] [address], [place] [address] Jun, [facility] [address] [id number] [address] [place] [address], [place] [address] Jun, [facility] [address] [id number] [address] [place] [address], [place] [address] May, [facility] [address] [id number] [address] [place] [address], [place] [address] May, [facility] [address] [id number] [address] [place] [address], [place] [address] Apr, [facility] [address] [id number] [address] [place] [address], [place] [address] Apr, [facility] [address] [id number] [address] [place] [address], [place] [address] Apr, [facility] [address] [id number] [address] [place] [address], [place] [address] Mar, [facility] [address] [id number] [address] [place] [address], [place] [address] Mar, [facility] [address] [id number] [address] [place] [address], [place] [address] Mar, [facility] [address] [id number] [address] [place] [address], [place] [address] Mar, [facility] [address] [id number] [address] [place] [address], [place] [address] Feb, [facility] [address] [id number] [facility] [place] [address] Feb, [facility] [address] [id number] [facility] [place] [address] Feb, [facility] [address] [id number] [facility] [place] [address] Feb, [facility] [address] [id number] [address] [place] [address], [place] [address] Feb, [facility] [address] [id number] [address] [place] [address], [place] [address] Feb, [facility] [address] [id number] [address] [place] [address], [place] [address] Jan, [facility] [address] [id number] [address] [place] [address], [place] [address] Jan, [facility] [address] [id number] [address] [place] [address], [place] [address] Jan, [facility] [address] [id number] [address] [place] [address], [place] [address] Jan, [facility] [address] [id number] [address] [place] [address], [place] [address] December, [facility] [address] [id number] [address] [place] [address], [place] [address] December, [facility] [address] [id number] [address] [place] [address], [place] [address] December, [facility] [address] [id number] [address] [place] [address], [place] [address] December, [facility] [address] [id number] [address] [place] [address], [place] [address] December, [facility] [address] [id number] [address] [place] [address], [place] [address] December, [facility] [address] [id number] [facility] [place] [address] December, [facility] [address] [id number] [facility] [place] [address] December, [facility] [address] [id number] [address] [place] [address], [place] [address] December, [facility] [address] [id number] [address] [place] [address], [place] [address] December, [facility] [address] [id number] [address] [place] [address], [place] [address] Nov, [facility] [address] [id number] [address] [place] [address], [place] [id number] Nov, [facility] [address] [id number] [address] [place] [address], [place] [id number] Oct, [facility] [address] [id number] [address] [place] [address], [place] [id number] Oct, [facility] [address] [id number] [address] [place] [address], [place] [id number] Oct, [facility] [address] [id number] [address] [place] [address], [place] [id number] Oct, [facility] [address] [id number] [address] [place] [address], [place] [id number] Oct, [facility] [address] [id number] [address] [place] [address], [place] [id number] Oct, [facility] [address] [id number] [address] [place] [address], [place] [id number] Aug, [facility] [address] [id number] [address] [place] [address], [place] [id number] Aug, [facility] [address] [id number] [address] [place] [address], [place] [id number] Aug, [facility] [address] [id number] [address] [place] [address], [place] [id number] Aug, [facility] [address] [id number] [address] [place] [address], [place] [id number] Aug, [facility] [address] [id number] [address] [place] [address], [place] [id number] Aug, [facility] [address] [id number] [address] [place] [address], [place] [id number] Aug, [facility] [address] [id number] [place] [address], [place] [id number] Aug, [facility] [address] [id number] [address] [place] [address], [place] [id number] Jul, [facility] [address] [id number] [address] [place] [id number] Jul, [facility] [address] [id number] [address] [place] [address], [place] [address] Jun, [facility] [address] [id number] [address] [place] [address], [place] [address] Jun, [facility] [address] [id number] [address] [place] [address], [place] [address] Jun, [facility] [address] [id number] [address] [place] [address], [place] [id number] Jun, [facility] [address] [id number] [address] [place] [address] Jun, [facility] [address] [id number] [address] [place] [id number] Jun, [facility] [address] [id number] [address] [place] [address], [place] [address] May, [facility] [address] [id number] [address] [place] [address] May, [facility] [address] [id number] [address] [place] [address], [place] [id number] 16 Apr, 2013 [facility] [address] [id number] [address] [place] [address], [place] [address] Apr, [facility] [address] [id number] [address] [place] [address], [place] [address] Mar, [facility] [address] [id number] [address] [place] [address], [place] [id number] Mar, [facility] [address] [id number] [address] [place] [address], [place] [address] Mar, [facility] [address] [id number] [address] [place] [address], [place] [address] Feb, [facility] [address] [id number] [address] [place] [address], [place] [address] Jan, [facility] [address] [id number] [address] [place] [address], [place] [address] December, [facility] [address] [id number] [address] [place] [address], [place] [address] December, [facility] [address] [id number] [address] [place] [address], [place] [address] December, [facility] [address] [id number] [address] [place] [address], [place] [address] December, [facility] [address] [id number] [address] [place] [address], [place] [address] December, [facility] [address] [id number] [address] [place] [address], [place] [id number] December, [facility] [address] [id number] [address] [place] [address], [place] [address] Nov, [facility] [address] [id number] [address] [place] [address], [place] [address] Nov, [facility] [address] [id number] [address] [place] [address], [place] [address] Nov, [facility] [address] [id number] [address] [place] [address], [place] [address] Oct, [facility] [address] [id number] [address] [place] [address], [place] [address] 14 Jun, 2012 [facility] [address] [id number] [address] [place] [address], [place] [address] 14 Jun, 2012 [facility] [address] [id number] [address] [place] [address], [place] [address] 12 Jun, 2012 [facility] [address] [id number] [address] [place] [address], [place] [address] Jun, [facility] [address] [id number] [address] [place] [address], [place] [id number] 18 Apr, 2012 [facility] [address] [id number] [address] [place] [address], [place] [address] Mar, [facility] [address] [id number] [address] [place] [address], [place] [address] Mar, [facility] [address] [id number] [address] [place] [address], [place] [id number] Jan, [facility] [address] [id number] [address] [place] [address], [place] [address] December, [facility] [address] [id number] [address] [place] [address], [place] [id number] 16 Nov, 2011 [facility] [address] [id number] [address] [place] [address], [place] [id number] Nov, [facility] [address] [id number] [address] [place] [address], [place] [id number] 05 Nov, 2011 [facility] [address] [id number] [address] [place] [address], [place] [address] Nov, [facility] [address] [id number] [address] [place] [address], [place] [address] Aug, [facility] [address] [id number] [address] [place] [address], [place] [address] Aug, [facility] [address] [id number] [address] [place] [id number] Jul, [facility] [address] [facility] [id number] [address] [place] [id number] Jun, [facility] [address] [facility] [id number] [address] [place] [id number] Jun, [facility] [address] [facility] [id number] [address] [place] [address] Apr, [facility] [address] [facility] [id number] [address] [place] [id number] Feb, IMMUNIZATIONS No Known Immunizations SOCIAL HISTORY Never Assessed REASON FOR VISIT PLAN OF CARE VITAL SIGNS Height 64 in 2014-09-27 Weight 159.5 lbs 2014-09-27 Temperature 98.9 degrees Fahrenheit 2014-09-27 Heart Rate 100 bpm 2014-09-27 Respiratory Rate 28 2014-09-27 Blood pressure systolic 154 mmHg 2014-09-27 Blood pressure diastolic 86 mmHg 2014-09-27 MEDICATIONS Unknown Medications RESULTS No Results PROCEDURES No Known procedures INSTRUCTIONS MEDICATIONS ADMINISTERED No Known Medications MEDICAL (GENERAL) HISTORY Type Description Date Medical History Hypertension Medical History ADHD Medical History depression Medical History anxiety Surgical History section Surgical History collar bone repair
--- OUTSIDE RECORDS SUMMARY | 2020-02-11 01:25 | XMS REPORT ---
Author Author Elaine GALARZA Organization [facility] Address [address] [place] [address] Care Team Providers Care Pearl Diver Name Role Phone MARI GALARZA Unavailable PROBLEMS Type Condition ICD9-CM Code FPT49-XM Code Onset Dates Condition S tatus SNOMED Code Problem ADHD, predominantly inattentive type F90.0 Active 08300626 Problem Primary insomnia F51.01 Active 397 2004 Problem Essential hypertension I10 Active 18138872 Problem Non-seasonal allergic rhinitis due to pollen J30.1 Active 43193190 Problem Major depressive disorder, recurrent episode, in full remission F33.42 Active 339257995 Problem Severe episode of recurrent major depressive disorder, without psychotic features F33.2 Active 10602339 Problem Seasonal allergies J30.2 Active 4 59862599 Problem Moderate episode of recurrent major depressive disorder F33.1 Active 858885941 Problem Intractable migraine without aura and with status migr ainosus G43.011 Active 734174190 Problem Migraine without aura and without status migrain osus, not intractable G43.009 Active 376880267 ALLERGIES No Information ENCOUNTERS Encounter Location Date Diagnosis [place] [address] [address] 28 Sep, 2019 ADHD, predominantly inattentive type F90 .0 [facility] [address] [address] Sep, [facility] [address] [address] Sep, ADHD, predominantly inattentive type F90 .0 [place] [address] [address] Aug, ADHD, predominantly inattentive type F90 .0 [place] [address] [address] Jul, ADHD, predominantly inattentive type F90 .0 [facility] [address] [address] Jun, ADHD, predominantly inattentive type F90 .0 ; Moderate episode of recurrent major depressive disorder F33.1 and Intractable migraine without aura and with status migrainosus G43.011 [facility] [address] [address] May, Severe episode of recurrent major depres sive disorder, without psychotic features F33.2 [facility] [address] [address] May, [facility] [address] [address] Apr, [facility] [address] [address] Mar, Moderate episode of recurrent major depr essive disorder F33.1 [facility] [address] [address] Mar, [facility] [address] [address] Feb, [facility] [address] [address] Feb, [facility] [address] [address] Jan, Major depressive disorder, recurrent epi sode, in full remission F33.42 [facility] [address] [address] Jan, Moderate episode of recurrent major depr essive disorder F33.1 ; Non- seasonal allergic rhinitis due to pollen J30.1 ; Migraine without aura and without status migrainosus, not intractable G43.009 and Sinus congestion R09.81 [facility] [address] [address] Jan, [facility] [address] [address] December, Moderate episode of recurrent major depr essive disorder F33.1 [facility] [address] [address] December, [facility] [address] [address] December, Moderate episode of recurrent major depr essive disorder F33.1 [place] [address] [address] Nov, Moderate episode of recurrent major depr essive disorder F33.1 and Intractable migraine without aura and with status migrainosus G43.011 [place] [address] [address] Nov, [place] [address] [address] Oct, Major depressive disorder, recurrent epi sode, in full remission F33.42 ; Intractable migraine without aura and with status migrainosus G43.011 ; Weight gain R63.5 ; Vision changes H53.9 and Other snf (current) drug therapy Z79.899 [place] [address] [address] 15 Oct, 2018 Encounter for pre-employment examination Z02.1 [place] [address] [address] 15 Oct, 2018 [facility] [address] [facility] [id number] [address] [address] Sep, Acute non-recurrent maxillar y sinusitis J01.00 [place] [address] [address] Sep, [place] [address] [address] Aug, [facility] [address] [address] Jul, ADHD, predominantly inattentive type F90 .0 and Primary insomnia F51.01 [facility] [address] [address] Jun, ADHD, predominantly inattentive type F90 .0 [place] [address] [address] May, ADHD, predominantly inattentive type F90 .0 ; Moderate episode of recurrent major depressive disorder F33.1 and Therapeutic drug monitoring Z51.81 [place] [address] [address] May, [place] [address] [address] Apr, ADHD, predominantly inattentive type F90 .0 [place] [address] [address] Apr, ADHD, predominantly inattentive type F90 .0 and Major depressive disorder, recurrent episode, in full remission F33.42 [place] [address] [address] Mar, ADHD, predominantly inattentive type F90 .0 and Primary insomnia F51.01 [place] [address] [address] Mar, [place] [address] [address] Mar, ADHD, predominantly inattentive type F90 .0 and Primary insomnia F51.01 [place] [address] [address] Feb, ADHD, predominantly inattentive type F90 .0 and Primary insomnia F51.01 [place] [address] [address] Jan, ADHD, predominantly inattentive type F90 .0 and Primary insomnia F51.01 [facility] [address] [facility] [id number] [address] [place] [address] December, Seasonal allergies J30.2 and Post-nasal drip R09.82 [place] [id number] [address] December, ADHD, predominantly inattentive type F90 .0 and Primary insomnia F51.01 [facility] [address] [address] Nov, ADHD, predominantly inattentive type F90 .0 [facility] [address] [address] Oct, ADHD, predominantly inattentive type F90 .0 [facility] [address] [address] Oct, ADHD, predominantly inattentive type F90 .0 ; Primary insomnia F51.01 and Screening, lipid Z13.220 [facility] [address] [address] Sep, ADHD, predominantly inattentive type F90 .0 [facility] [address] [address] Aug, ADHD, predominantly inattentive type F90 .0 and Primary insomnia F51.01 [facility] [address] [address] Jul, ADHD, predominantly inattentive type F90 .0 [facility] [address] [address] Jul, Primary insomnia F51.01 and ADHD, predom inantly inattentive type F90.0 [facility] [address] [address] Jun, ADHD, predominantly inattentive type F90 .0 [facility] [address] [address] May, ADHD, predominantly inattentive type F90 .0 [facility] [address] [address] Apr, ADHD, predominantly inattentive type F90 .0 [facility] [address] [address] Mar, ADHD, predominantly inattentive type F90 .0 ; Primary insomnia F51.01 ; Major depressive disorder, recurrent episode, in full remission F33.42 and Acne comedone L70.0 [place] [address] [place] [id number] Mar, Major depressive disorder, recurrent epi sode, in full remission F33.42 and ADHD, predominantly inattentive type F90.0 [place] [address] [address] Feb, ADHD, predominantly inattentive type F90 .0 [place] [address] [address] Feb, Primary insomnia F51.01 [place] [address] [address] Jan, ADHD, predominantly inattentive type F90 .0 and Primary insomnia F51.01 [place] [address] [address] December, ADHD, predominantly inattentive type F90 .0 and Primary insomnia F51.01 [place] [address] [address] Oct, ADHD, predominantly inattentive type F90 .0 and Primary insomnia F51.01 [place] [address] [address] Sep, ADHD, predominantly inattentive type F90 .0 and Primary insomnia F51.01 [place] [address] [address] Aug, ADHD, predominantly inattentive type F90 .0 and Primary insomnia F51.01 [place] [address] [address] Jul, Major depressive disorder, recurrent epi sode, in full remission F33.42 ; ADHD, predominantly inattentive type F90.0 ; Primary insomnia F51.01 ; Acute non-recurrent maxillary sinusitis J01.00 and Screening, lipid Z13.220 [facility] [address] [facility] [id number] [address] [address] Jun, Acute non-recurrent maxillar y sinusitis J01.00 [facility] [address] [address] Jun, ADHD, predominantly inattentive type F90 .0 [facility] [address] [address] May, [facility] [address] [address] Apr, [facility] [address] [facility] [id number] [address] [address] Feb, Rash R21 and Scabies B86 [facility] [address] [address] Feb, ADHD, predominantly inattentive type F90 .0 and Major depressive disorder, recurrent episode, in full remission F33.42 [facility] [address] [address] Feb, [facility] [address] [address] Oct, [facility] [address] [address] Sep, [facility] [address] [address] Sep, [facility] [address] [address] Aug, [facility] [address] [address] Jul, [facility] [address] [address] Jun, [facility] [address] [address] May, [facility] [address] [place] [address] May, ADHD, predominantly inattentive type F90 .0 and Major depressive disorder, recurrent episode, in full remission F33.42 [facility] [address] [place] [id number] [place] [address] Feb, Major depressive disorder, recurrent epi sode, moderate 296.32 [facility] [address] [address] Feb, [facility] [address] [address] Jan, [facility] [address] [address] Jan, [facility] [address] [address] December, [facility] [address] [address] Nov, [facility] [address] [address] Nov, [facility] [address] [address] Oct, [facility] [address] [address] Oct, [facility] [address] [address] Sep, [facility] [address] [address] Sep, [facility] [address] [address] Sep, [facility] [address] [address] Sep, [facility] [address] [address] Aug, [facility] [address] [address] Aug, [facility] [address] [id number] [place] [address] Aug, [facility] [address] [id number] [place] [address] Aug, [facility] [address] [id number] [place] [address] Aug, [facility] [address] [id number] [place] [address] Aug, [facility] [address] [facility] [id number] [place] [address] Jul, [facility] [address] [id number] [place] [address] Jul, [facility] [address] [id number] [place] [address] Jun, [facility] [address] [id number] [place] [address] Jun, [facility] [address] [id number] [place] [address] May, [facility] [address] [id number] [place] [address] May, [facility] [address] [id number] [place] [address] Apr, [facility] [address] [id number] [place] [address] Apr, [facility] [address] [id number] [place] [address] Apr, [facility] [address] [id number] [place] [address] Mar, [facility] [address] [id number] [place] [address] Mar, [facility] [address] [id number] [place] [address] Mar, [facility] [address] [id number] [place] [address] Mar, [facility] [address] MP045289 [place] [address] Feb, [facility] [address] [id number] [place] [address] Feb, [facility] [address] [id number] [place] [address] Feb, [facility] [address] [id number] [place] [address] Feb, [facility] [address] [id number] [place] [address] Feb, [facility] [address] [id number] [place] [address] Feb, [facility] [address] [id number] [place] [address] Jan, [facility] [address] [id number] [place] [address] Jan, [facility] [address] [id number] [place] [address] Jan, [facility] [address] [id number] [place] [address] Jan, [facility] [address] [id number] [place] [address] December, [facility] [address] [id number] [place] [address] December, [facility] [address] [id number] [place] [address] December, [facility] [address] [id number] [place] [address] December, [facility] [address] [id number] [place] [address] December, [facility] [address] [id number] [place] [address] December, [facility] [address] [id number] [place] [address] December, [facility] [address] [id number] [place] [address] December, [facility] [address] [id number] [place] [address] December, [facility] [address] [id number] [place] [address] December, [facility] [address] [id number] [place] [address] Nov, [facility] [address] [id number] [place] [address] Nov, [facility] [address] [id number] [place] [address] Oct, [facility] [address] [id number] [place] [address] Oct, [facility] [address] [id number] [place] [address] Oct, [facility] [address] [id number] [place] [address] Oct, [facility] [address] [id number] [place] [address] Oct, [facility] [address] [id number] [place] [address] Oct, [facility] [address] [id number] [place] [address] Aug, [facility] [address] [id number] [place] [address] Aug, [facility] [address] [id number] [place] [address] Aug, [facility] [address] [id number] [place] [address] Aug, [facility] [address] [id number] [place] [address] Aug, [facility] [address] [id number] [place] [address] Aug, [facility] [address] [id number] [place] [address] Aug, [facility] [address] [id number] [place] [address] Aug, [facility] [address] [id number] [place] [address] Jul, [facility] [address] [id number] [place] [address] Jul, [facility] [address] [id number] [place] [address] Jun, [facility] [address] [id number] [place] [address] Jun, [facility] [address] [id number] [place] [address] Jun, [facility] [address] [id number] [place] [address] Jun, [facility] [address] [id number] [place] [address] Jun, [facility] [address] [id number] [place] [address] Jun, [facility] [address] [id number] [place] [address] May, [facility] [address] [id number] [place] [address] May, [facility] [address] [id number] [place] [address] 16 Apr, 2013 [facility] [address] [id number] [place] [address] 12 Apr, 2013 [facility] [address] [id number] [place] [address] Mar, [facility] [address] [id number] [place] [address] Mar, [facility] [address] [id number] [place] [address] Mar, [facility] [address] [id number] [place] [address] Feb, [facility] [address] [id number] [place] [address] Jan, [facility] [address] [id number] [place] [address] December, [facility] [address] [id number] [place] [address] December, [facility] [address] [id number] [place] [address] December, [facility] [address] [id number] [place] [address] December, [facility] [address] [id number] [place] [address] December, [facility] [address] [id number] [place] [address] December, [facility] [address] [id number] [place] [address] Nov, [facility] [address] [id number] [place] [address] Nov, [facility] [address] [id number] [place] [address] Nov, [facility] [address] [id number] [place] [address] Oct, [facility] [address] [id number] [place] [address] Jun, [facility] [address] [id number] [place] [address] Jun, [facility] [address] [id number] [place] [address] Jun, [facility] [address] [id number] [place] [address] Jun, [facility] [address] [id number] [place] [address] 18 Apr, 2012 [facility] [address] [id number] [place] [address] Mar, [facility] [address] [place] [id number] [place] [address] Mar, [facility] [address] [id number] [place] [address] Jan, [facility] [address] [id number] [place] [address] December, [facility] [address] [id number] [place] [address] Nov, [facility] [address] [place] [address] [id number] [place] [address] Nov, [facility] [address] [id number] [place] [address] Nov, [facility] [address] [id number] [place] [address] Nov, [facility] [address] [id number] [place] [address] Aug, [facility] [address] [place] [address] [id number] [place] [address] Aug, [facility] [address] [id number] [place] [address] Jul, [facility] [address] [id number] [place] [address] Jun, [facility] [address] [address] [id number] [place] [address] Jun, [facility] [address] [id number] [place] [address] 14 Apr, 2011 [facility] [address] [id number] [place] [address] Feb, IMMUNIZATIONS No Known Immunizations SOCIAL HISTORY [...]
--- OUTSIDE RECORDS SUMMARY | 2020-02-11 01:25 | XMS REPORT ---
Author Author Elaine KRUSE Organization [facility] Address [address] [place] [address] Care Team Providers Care It Support Manager Name Role Phone DARIN KRUSE Unavailable PROBLEMS Type Condition ICD9-CM Code [id number] Code Onset Dates Condition S tatus SNOMED Code Problem ADHD, predominantly inattentive type F90.0 Active 88387400 Problem Primary insomnia F51.01 Active 397 2004 Problem Essential hypertension I10 Active 24596589 Problem Non-seasonal allergic rhinitis due to pollen J30.1 Active 74656238 Problem Major depressive disorder, recurrent episode, in full remission F33.42 Active 817616893 Problem Severe episode of recurrent major depressive disorder, without psychotic features F33.2 Active 86720323 Problem Seasonal allergies J30.2 Active 4 70696258 Problem Moderate episode of recurrent major depressive disorder F33.1 Active 211571583 Problem Intractable migraine without aura and with status migr ainosus G43.011 Active 442014105 Problem Migraine without aura and without status migrain osus, not intractable G43.009 Active [id number] ALLERGIES No Information ENCOUNTERS Encounter Location Date Diagnosis [place] [address] [place] [id number] [address] [place] [address] Oct, [facility] [address] [facility] [id number] [address] [place] [address] Sep, ADHD, predominantly inattent randall type F90.0 [facility] [address] [facility] [id number] [address] [place] [address] Sep, [facility] [address] [facility] [id number] [address] [place] [phone] 04 Sep, 2019 ADHD, predominantly inattent randall type F90.0 [facility] [address] [facility] [id number] [address] [place] [address] Aug, ADHD, predominantly inattent randall type F90.0 [facility] [address] [id number] [address] [place] [address] Jul, ADHD, predominantly inattent randall type F90.0 [facility] [address] [id number] [address] [place] [address] Jun, ADHD, predominantly inattent randall type F90.0 ; Moderate episode of recurrent major depressive disorder F33.1 and Intractable migraine without aura and with status migrainosus G43.011 [facility] [address] [id number] [address] [place] [phone] May, Severe episode of recurrent major depressive disorder, without psychotic features F33.2 [facility] [address] [id number] [address] [place] [address] May, [facility] [address] [id number] [address] [place] [address] Apr, [facility] [address] [id number] [address] [place] [address] Mar, Moderate episode of recurren t major depressive disorder F33.1 [facility] [address] [id number] [address] [place] [address] Mar, [facility] [address] [id number] [address] [place] [phone] Feb, [facility] [address] [id number] [address] [place] [phone] Feb, [facility] [address] [id number] [address] [place] [address] Jan, Major depressive disorder, r ecurrent episode, in full remission F33.42 [facility] [address] [id number] [address] [place] [address] Jan, Moderate episode of recurren t major depressive disorder F33.1 ; Non-seasonal allergic rhinitis due to pollen J30.1 ; Migraine without aura and without status migrainosus, not intractable G43.009 and Sinus congestion R09.81 [facility] [address] [facility] [id number] [address] [place] [phone] Jan, [facility] [address] [facility] [id number] [address] [place] [address] December, Moderate episode of recurren t major depressive disorder F33.1 [facility] [address] [facility] [id number] [address] [place] [address] December, [facility] [address] [facility] [id number] [address] [place] [phone] December, Moderate episode of recurren t major depressive disorder F33.1 [place] [address] [facility] [id number] [address] [place] [address] Nov, Moderate episode of recurren t major depressive disorder F33.1 and Intractable migraine without aura and with status migrainosus G43.011 [place] [address] [facility] [id number] [address] [place] [address] Nov, [facility] [address] 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 [id number] [address] [place] [address] Oct, Encounter for pre-employment examination Z02.1 [facility] [address] [facility] [id number] [address] [place] [address] Oct, [facility] [address] [place] [id number] [address] [place] [phone] Sep, Acute non-recurrent maxillar y sinusitis J01.00 [facility] [address] [place] [id number] [address] [place] [phone] 14 Sep, 2018 [facility] [address] [id number] [address] [place] [phone] Aug, [facility] [address] [facility] [id number] [address] [place] [address] Jul, ADHD, predominantly inattent randall type F90.0 and Primary insomnia F51.01 [facility] [address] [facility] [id number] [address] [place] [address] Jun, ADHD, predominantly inattent randall type F90.0 [place] [address] [facility] [id number] [address] [place] [address] May, ADHD, predominantly inattent randall type F90.0 ; Moderate episode of recurrent major depressive disorder F33.1 and Therapeutic drug monitoring Z51.81 [place] [address] [facility] [id number] [address] [place] [address] May, [facility] [address] [facility] [id number] [address] [place] [address] Apr, ADHD, predominantly inattent randall type F90.0 [place] [address] [facility] [id number] [address] [place] [address] Apr, ADHD, predominantly inattent randall type F90.0 and Major depressive disorder, recurrent episode, in full remission F33.42 [facility] [address] [facility] [id number] [address] [place] [phone] Mar, ADHD, predominantly inattent randall type F90.0 and Primary insomnia F51.01 [facility] [address] [facility] [id number] [address] [place] [address] Mar, [facility] [address] [facility] [id number] [address] [place] [phone] Mar, ADHD, predominantly inattent randall type F90.0 and Primary insomnia F51.01 [facility] [address] [facility] [id number] [address] [place] [address] Feb, ADHD, predominantly inattent randall type F90.0 and Primary insomnia F51.01 [place] [address] [place] [id number] [place] [address] Jan, ADHD, predominantly inattent randall type F90.0 and Primary insomnia F51.01 [facility] [address] [facility] [id number] [address] [place] [address] December, Seasonal allergies J30.2 and Post-nasal drip R09.82 [facility] [address] [facility] [id number] [address] [place] [address] December, ADHD, predominantly inattent randall type F90.0 and Primary insomnia F51.01 [place] [address] [place] [id number] [place] [address] Nov, ADHD, predominantly inattent randall type F90.0 [place] [address] [place] [id number] [place] [phone] Oct, ADHD, predominantly inattent randall type F90.0 [place] [address] [place] [id number] [place] [address] Oct, ADHD, predominantly inattent randall type F90.0 ; Primary insomnia F51.01 and Screening, lipid Z13.220 [place] [address] [place] [id number] [address] [place] [address] Sep, ADHD, predominantly inattent randall type F90.0 [place] [address] [place] [id number] [address] [place] [address] Aug, ADHD, predominantly inattent randall type F90.0 and Primary insomnia F51.01 [place] [address] [facility] [id number] [address] [place] [phone] Jul, ADHD, predominantly inattent randall type F90.0 [place] [address] [place] [id number] [address] [place] [address] Jul, Primary insomnia F51.01 and ADHD, predominantly inattentive type F90.0 [facility] [address] [id number] [address] [place] [address] Jun, ADHD, predominantly inattent randall type F90.0 [facility] [address] [id number] [address] [place] [phone] May, ADHD, predominantly inattent randall type F90.0 [facility] [address] [facility] [id number] [address] [place] [address] Apr, ADHD, predominantly inattent randall type F90.0 [facility] [address] [id number] [address] [place] [address] Mar, ADHD, predominantly inattent randall type F90.0 ; Primary insomnia F51.01 ; Major depressive disorder, recurrent episode, in full remission F33.42 and Acne comedone L70.0 [facility] [address] [facility] [id number] [address] [place] [address] Mar, Major depressive disorder, r ecurrent episode, in full remission F33.42 and ADHD, predominantly inattentive type F90.0 [place] [address] [facility] [id number] [address] [place] [address] Feb, ADHD, predominantly inattent randall type F90.0 [facility] [address] [facility] [id number] [address] [place] [address] Feb, Primary insomnia F51.01 [facility] [address] [facility] [id number] [address] [place] [address] Jan, ADHD, predominantly inattent randall type F90.0 and Primary insomnia F51.01 [facility] [address] [facility] [id number] [address] [place] [id number] December, ADHD, predominantly inattent randall type F90.0 and Primary insomnia F51.01 [facility] [address] [facility] [id number] [address] [place] [phone] Oct, ADHD, predominantly inattent randall type F90.0 and Primary insomnia F51.01 [facility] [address] [id number] [address] [place] [address] Sep, ADHD, predominantly inattent randall type F90.0 and Primary insomnia F51.01 [facility] [address] [id number] [address] [place] [address] Aug, ADHD, predominantly inattent randall type F90.0 and Primary insomnia F51.01 [facility] [address] [id number] [address] [place] [address] Jul, Major depressive disorder, r ecurrent episode, in full remission F33.42 ; ADHD, predominantly inattentive type F90.0 ; Primary insomnia F51.01 ; Acute non-recurrent maxillary sinusitis J01.00 and Screening, lipid Z13.220 [facility] [address] [id number] [address] [place] [address] Jun, Acute non-recurrent maxillar y sinusitis J01.00 [facility] [address] [id number] [address] [place] [phone] Jun, ADHD, predominantly inattent randall type F90.0 [facility] [address] [id number] [address] [place] [address] May, [facility] [address] [id number] [address] [place] [address] Apr, [facility] [address] [id number] [address] [place] [id number] Feb, Rash R21 and Scabies B86 [facility] [address] [id number] [address] [place] [phone] Feb, ADHD, predominantly inattent randall type F90.0 and Major depressive disorder, recurrent episode, in full remission F33.42 [facility] [address] [id number] [address] [place] [address] Feb, [place] [address] [id number] [address] [place] [address] Oct, [facility] [address] [id number] [address] [place] [address] Sep, [facility] [address] [id number] [address] [place] [address] Sep, [facility] [address] [id number] [address] [place] [phone] Aug, [facility] [address] [id number] [address] [place] [phone] Jul, [facility] [address] [id number] [address] [place] [address] Jun, [facility] [address] [id number] [address] [place] [address] May, [facility] [address] [id number] [address] [place] [address] May, ADHD, predominantly inattent randall type F90.0 and Major depressive disorder, recurrent episode, in full remission F33.42 [facility] [address] [id number] [address] [place] [phone] Feb, Major depressive disorder, r ecurrent episode, moderate 296.32 [facility] [address] [id number] [address] [place] [address] Feb, [facility] [address] [id number] [address] [place] [phone] Jan, [facility] [address] [id number] [address] [place] [address] Jan, [facility] [address] [id number] [address] [place] [address] December, [facility] [address] [id number] [address] [place] [address] Nov, [facility] [address] [id number] [address] [place] [address] Nov, [facility] [address] [id number] [address] [place] [address], [place] [address] Oct, [facility] [address] [id number] [address] [place] [address], [place] [address] Oct, [facility] [address] [id number] [address] [place] [address], [place] [address] Sep, [facility] [address] [id number] [address] [place] [address], [place] [address] Sep, [facility] [address] [id number] [address] [place] [address], [place] [address] Sep, [facility] [address] [id number] [address] [place] [address], [place] [address] Sep, [facility] [address] [id number] [address] [place] [address], [place] [address] Aug, [facility] [address] [id number] [address] [place] [address], [place] [address] Aug, [facility] [address] [id number] [address] [place] [address], [place] [address] Aug, [facility] [address] [id number] [address] [place] [address], [place] [address] Aug, [facility] [address] [id number] [address] [place] [address], [place] [address] Aug, [facility] [address] [id number] [address] [place] [address] Aug, [facility] [address] [id number] [address] [place] [address], [place] [address] Jul, [facility] [address] [id number] [address] [place] [address], [place] [address] Jul, [facility] [address] [id number] [address] [place] [phone] Jun, [facility] [address] [id number] [address] [place] [address], [place] [address] Jun, [facility] [address] [id number] [address] [place] [address], [place] [address] May, [facility] [address] [id number] [address] [place] [address], [place] [address] May, [facility] [address] [id number] [address] [place] [address], [place] [address] Apr, [facility] [address] [id number] [address] [place] [address], [place] [address] Apr, [facility] [address] [id number] [address] [place] [address], [place] [address] Apr, [facility] [place] [address] [id number] [address] [place] [address], [place] [address] Mar, [facility] [place] [address] [id number] [address] [place] [address], [place] [address] Mar, [facility] [address] [id number] [address] [place] [address], [place] [address] Mar, [facility] [address] [id number] [address] [place] [address], [place] [address] Mar, [facility] [address] [id number] [address] [place] [address], [place] [address] Feb, [facility] [address] [id number] [address] [place] [address], [place] [address] Feb, [facility] [place] [facility] [address] [id number] [address] [place] [address], [place] [address] Feb, [facility] [address] [id number] [address] [place] [address], [place] [address] Feb, [facility] [place] [address] [id number] [address] [place] [address], [place] [address] Feb, [facility] [address] [id number] [address] [place] [address], [place] [address] Feb, [facility] [address] [id number] [facility] [place] [address] Jan, [facility] [address] [id number] [address] [place] [address], [place] [address] Jan, [facility] [address] [id number] [address] [place] [address], [place] [address] Jan, [facility] [address] [id number] [address] [place] [address], [place] [address] Jan, [facility] [address] [id number] [facility] [place] [address] December, [facility] [address] [id number] [address] [place] [address], [place] [address] December, [facility] [address] [id number] [address] [place] [address], [place] [address] December, [facility] [address] [id number] [address] [place] [address], [place] [address] December, [facility] [address] [id number] [address] [place] [address], [place] [address] December, [facility] [address] [id number] [address] [place] [address], [place] [address] December, [facility] [address] [id number] [address] [place] [address], [place] [address] December, [facility] [address] [id number] [address] [place] [address], [place] [address] December, [facility] [address] [id number] [address] [place] [address], [place] [address] December, [facility] [address] [id number] [address] [place] [address], [place] [address] December, [facility] [address] [id number] [address] [place] [address], [place] [address] Nov, [facility] [address] [id number] [address] [place] [address] 16 Nov, 2013 [facility] [address] [id number] [address] [place] [address], [place] [address] 10 Oct, 2013 [facility] [address] [id number] [address] [place] [address], [place] [address] Oct, [facility] [address] [id number] [address] [place] [address], [place] [address] Oct, [facility] [address] [id number] [address] [place] [address], [place] [address] Oct, [facility] [address] [id number] [address] [place] [address], [place] [address] Oct, [facility] [address] [id number] [address] [place] [address], [place] [address] Oct, [facility] [address] [id number] [address] [place] [address], [place] [address] Aug, [facility] [address] [id number] [address] [place] [address], [place] [address] Aug, [facility] [address] [id number] [address] [place] [address], [place] [address] Aug, [facility] [address] [id number] [address] [place] [address], [place] [address] Aug, [facility] [address] [id number] [address] [place] [address], [place] [address] Aug, [facility] [address] [id number] [address] [place] [address], [place] [address] Aug, [facility] [address] [id number] [address] [place] [address], [place] [address] Aug, [facility] [address] [id number] [address] [place] [address], [place] [address] Aug, [facility] [address] [id number] [address] [place] [address], [place] [address] Jul, [facility] [address] [id number] [address] [place] [address], [place] [address] Jul, [facility] [address] [id number] [address] [place] [address], [place] [address] Jun, [facility] [address] [id number] [address] [place] [address], [place] [address] Jun, [facility] [address] [id number] [address] [place] [address], [place] [address] Jun, [facility] [address] [id number] [address] [place] [address], [place] [address] Jun, [facility] [address] [id number] [address] [place] [address], [place] [address] Jun, [facility] [address] [id number] [address] [place] [address], [place] [address] Jun, [facility] [address] [id number] [address] [place] [address], [place] [address] May, [facility] [address] [id number] [address] [place] [address], [place] [address] May, [facility] [address] [id number] [address] [place] [address], [place] [address] Apr, [facility] [address] [id number] [address] [place] [address], [place] [address] Apr, [facility] [address] [id number] [address] [place] [address], [place] [address] Mar, [facility] [address] [id number] [address] [place] [address], [place] [address] Mar, [facility] [address] [id number] [address] [place] [address], [place] [address] Mar, [facility] [address] [id number] [address] [place] [address], [place] [address] Feb, [facility] [address] [id number] [address] [place] [address], [place] [address] Jan, [facility] [address] [id number] [address] [place] [address], [place] [address] December, [facility] [address] [id number] [address] [place] [address], [place] [address] December, [facility] [address] [id number] [address] [place] [address], [place] [address] December, [facility] [address] [id number] [address] [place] [address], [place] [address] December, [facility] [address] [id number] [address] [place] [address], [place] [address] December, [facility] [address] [id number] [address] [place] [address], [place] [address] December, [facility] [address] [id number] [address] [place] [address], [place] [address] Nov, [facility] [address] [id number] [address] [place] [address], [place] [address] Nov, [facility] [address] [id number] [address] [place] [address], [place] [address] Nov, [facility] [address] [id number] [address] [place] [address], [place] [address] Oct, [facility] [address] [id number] [address] [place] [address], [place] [address] 14 Jun, 2012 [facility] [address] [id number] [address] [place] [address], [place] [address] 14 Jun, 2012 [facility] [address] [id number] [address] [place] [address], [place] [address] Jun, [facility] [address] [id number] [address] [place] [address], [place] [address] Jun, [facility] [address] [id number] [address] [place] [address], [place] [address] 18 Apr, 2012 [facility] [address] [id number] [address] [place] [address], [place] [address] Mar, [facility] [address] [id number] [address] [place] [address] Mar, [facility] [address] [id number] [address] [place] [address] Jan, [facility] [address] [id number] [address] [place] [address] December, [facility] [address] [id number] [address] [place] [address], [place] [address] Nov, [facility] [address] [id number] [address] [place] [address], [place] [address] Nov, [facility] [address] [id number] [address] [place] [phone] Nov, [facility] [address] [id number] [address] [place] [address] Nov, [facility] [address] [id number] [address] [place] [address] Aug, [facility] [address] [id number] [address] [place] [address] Aug, [facility] [address] [id number] [address] [place] [address] Jul, [facility] [address] [id number] [address] [place] [address] Jun, [facility] [address] [id number] [address] [place] [address] Jun, [facility] [address] [id number] [address] [place] [address] Apr, [facility] [address] [id number] [address] [place] [address] Feb, IMMUNIZATIONS No Known Immunizations SOCIAL HISTORY Never Assessed REASON FOR VISIT PLAN OF CARE VITAL SIGNS Height 64 in 2013-09-21 Weight 174.7 lbs 2013-09-21 Temperature 98.4 degrees Fahrenheit 2013-09-21 Heart Rate 92 bpm 2013-09-21 Respiratory Rate 20 2013-09-21 Blood pressure systolic 148 mmHg 2013-09-21 Blood pressure diastolic 100 mmHg 2013-09-21 MEDICATIONS Unknown Medications RESULTS No Results PROCEDURES No Known procedures INSTRUCTIONS MEDICATIONS ADMINISTERED No Known Medications MEDICAL (GENERAL) HISTORY Type Description Date Medical History Hypertension Medical History ADHD Medical History depression Medical History anxiety Surgical History section Surgical History collar bone repair
--- OUTSIDE RECORDS SUMMARY | 2020-02-11 01:26 | XMS REPORT ---
Author Author Elaine Collier Doctor Organization [facility] Address Unknown Phone Unavailable Care Team Providers Care Equipment Monitor Phototypesetting Name Role Phone Migration, Doctor Unavailable Unavailable PROBLEMS Type Condition ICD9-CM Code JOR48-IE Code Onset Dates Condition S tatus SNOMED Code Problem ADHD, predominantly inattentive type F90.0 Active 10774080 Problem Primary insomnia F51.01 Active 397 2004 Problem Essential hypertension I10 Active 14501019 Problem Non-seasonal allergic rhinitis due to pollen J30.1 Active 88555236 Problem Major depressive disorder, recurrent episode, in full remission F33.42 Active 449657848 Problem Severe episode of recurrent major depressive disorder, without psychotic features F33.2 Active 15792738 Problem Seasonal allergies J30.2 Active 4 63993069 Problem Moderate episode of recurrent major depressive disorder F33.1 Active 032212483 Problem Intractable migraine without aura and with status migr ainosus G43.011 Active 271491632 Problem Migraine without aura and without status migrain osus, not intractable G43.009 Active 248379122 ALLERGIES No Information ENCOUNTERS Encounter Location Date Diagnosis [place] [address] [address] 28 Sep, 2019 ADHD, predominantly inattentive type F90 .0 [place] [address] [address] Sep, [facility] [address] [address] Sep, ADHD, predominantly inattentive type F90 .0 [place] [address] [address] Aug, ADHD, predominantly inattentive type F90 .0 [place] [address] [address] Jul, ADHD, predominantly inattentive type F90 .0 [place] [address] [address] Jun, ADHD, predominantly inattentive type F90 .0 ; Moderate episode of recurrent major depressive disorder F33.1 and Intractable migraine without aura and with status migrainosus G43.011 [facility] [address] [address] May, Severe episode of recurrent major depres sive disorder, without psychotic features F33.2 [facility] [address] [address] May, [facility] [address] [address] Apr, [facility] [address] [address] Mar, Moderate episode of recurrent major depr essive disorder F33.1 [facility] [address] [address] Mar, [facility] [address] [address] Feb, [facility] [address] [address] Feb, [facility] [address] [address] Jan, Major depressive disorder, recurrent epi sode, in full remission F33.42 [facility] [address] [address] Jan, Moderate episode of recurrent major depr essive disorder F33.1 ; Non- seasonal allergic rhinitis due to pollen J30.1 ; Migraine without aura and without status migrainosus, not intractable G43.009 and Sinus congestion R09.81 [facility] [address] [address] Jan, [facility] [address] [address] December, Moderate episode of recurrent major depr essive disorder F33.1 [place] [address] [address] December, [place] [address] [address] December, Moderate episode of recurrent major depr essive disorder F33.1 [place] [address] [address] Nov, Moderate episode of recurrent major depr essive disorder F33.1 and Intractable migraine without aura and with status migrainosus G43.011 [place] [address] [address] Nov, [place] [address] [address] Oct, Major depressive disorder, recurrent epi sode, in full remission F33.42 ; Intractable migraine without aura and with status migrainosus G43.011 ; Weight gain R63.5 ; Vision changes H53.9 and Other nursing home (current) drug therapy Z79.899 [place] [address] [address] Oct, Encounter for pre-employment examination Z02.1 [place] [address] [address] 15 Oct, 2018 [facility] [address] [facility] [id number] [address] [place] [address] 20 Sep, 2018 Acute non-recurrent maxillar y sinusitis J01.00 [place] [address] [address] 14 Sep, 2018 [place] [address] [address] Aug, [place] [address] [address] Jul, ADHD, predominantly inattentive type F90 .0 and Primary insomnia F51.01 [place] [address] [address] Jun, ADHD, predominantly inattentive type F90 .0 [place] [address] [address] May, ADHD, predominantly inattentive type F90 .0 ; Moderate episode of recurrent major depressive disorder F33.1 and Therapeutic drug monitoring Z51.81 [facility] [address] [address] May, [place] [address] [address] Apr, ADHD, predominantly inattentive type F90 .0 [place] [address] [address] Apr, ADHD, predominantly inattentive type F90 .0 and Major depressive disorder, recurrent episode, in full remission F33.42 [place] [address] [address] Mar, ADHD, predominantly inattentive type F90 .0 and Primary insomnia F51.01 [place] [address] [address] Mar, [place] [address] [address] Mar, ADHD, predominantly inattentive type F90 .0 and Primary insomnia F51.01 [place] [address] [address] Feb, ADHD, predominantly inattentive type F90 .0 and Primary insomnia F51.01 [place] [address] [address] Jan, ADHD, predominantly inattentive type F90 .0 and Primary insomnia F51.01 [facility] [address] [facility] [id number] [address] [place] [address] December, Seasonal allergies J30.2 and Post-nasal drip R09.82 [facility] [address] [address] December, ADHD, predominantly inattentive type F90 .0 and Primary insomnia F51.01 [facility] [address] [address] Nov, ADHD, predominantly inattentive type F90 .0 [facility] [address] [address] Oct, ADHD, predominantly inattentive type F90 .0 [facility] [address] [address] Oct, ADHD, predominantly inattentive type F90 .0 ; Primary insomnia F51.01 and Screening, lipid Z13.220 [facility] [address] [address] Sep, ADHD, predominantly inattentive type F90 .0 [facility] [address] [address] Aug, ADHD, predominantly inattentive type F90 .0 and Primary insomnia F51.01 [facility] [address] [address] Jul, ADHD, predominantly inattentive type F90 .0 [facility] [address] [address] Jul, Primary insomnia F51.01 and ADHD, predom inantly inattentive type F90.0 [facility] [address] [address] Jun, ADHD, predominantly inattentive type F90 .0 [facility] [address] [address] May, ADHD, predominantly inattentive type F90 .0 [facility] [address] [address] Apr, ADHD, predominantly inattentive type F90 .0 [facility] [address] [address] Mar, ADHD, predominantly inattentive type F90 .0 ; Primary insomnia F51.01 ; Major depressive disorder, recurrent episode, in full remission F33.42 and Acne comedone L70.0 [place] [address] [address] Mar, Major depressive disorder, recurrent epi sode, in full remission F33.42 and ADHD, predominantly inattentive type F90.0 [place] [address] [address] Feb, ADHD, predominantly inattentive type F90 .0 [place] [address] [address] Feb, Primary insomnia F51.01 [place] [address] [address] Jan, ADHD, predominantly inattentive type F90 .0 and Primary insomnia F51.01 [place] [address] [address] December, ADHD, predominantly inattentive type F90 .0 and Primary insomnia F51.01 [place] [address] [address] Oct, ADHD, predominantly inattentive type F90 .0 and Primary insomnia F51.01 [place] [address] [address] Sep, ADHD, predominantly inattentive type F90 .0 and Primary insomnia F51.01 [place] [address] [address] Aug, ADHD, predominantly inattentive type F90 .0 and Primary insomnia F51.01 [place] [address] [address] Jul, Major depressive disorder, recurrent epi sode, in full remission F33.42 ; ADHD, predominantly inattentive type F90.0 ; Primary insomnia F51.01 ; Acute non-recurrent maxillary sinusitis J01.00 and Screening, lipid Z13.220 [facility] [address] [facility] [id number] [address] [place] [address] Jun, Acute non-recurrent maxillar y sinusitis J01.00 [facility] [address] [address] Jun, ADHD, predominantly inattentive type F90 .0 [facility] [address] [address] May, [facility] [address] [address] Apr, [facility] [address] [facility] [id number] [address] [place] [address] 07 Feb, 2016 Rash R21 and Scabies B86 [facility] [address] [address] Feb, ADHD, predominantly inattentive type F90 .0 and Major depressive disorder, recurrent episode, in full remission F33.42 [facility] [address] [address] Feb, [facility] [address] [address] Oct, [facility] [address] [address] Sep, [facility] [address] [address] Sep, [facility] [address] [address] Aug, [facility] [address] [address] Jul, [facility] [address] [address] Jun, [facility] [address] [address] May, [facility] [address] [address] May, ADHD, predominantly inattentive type F90 .0 and Major depressive disorder, recurrent episode, in full remission F33.42 [facility] [address] [place] [id number] [place] [address] Feb, Major depressive disorder, recurrent epi sode, moderate 296.32 [facility] [address] [place] [id number] [place] [address] Feb, [facility] [address] [place] [id number] [place] [address] Jan, [facility] [address] [place] [id number] [place] [address] Jan, [facility] [address] [address] December, [facility] [address] [address] Nov, [facility] [address] [place] [id number] [place] [address] Nov, [facility] [address] [place] [id number] [place] [address] Oct, [facility] [address] [place] [id number] [place] [address] Oct, [facility] [address] [place] [id number] [place] [address] Sep, [facility] [address] [place] [id number] [place] [address] Sep, [facility] [address] [place] [id number] [place] [address] Sep, [facility] [address] [place] [id number] [place] [address] Sep, [facility] [address] [place] [id number] [place] [address] Aug, [facility] [address] [place] [id number] [place] [address] Aug, [facility] [address] [place] [id number] [place] [address] Aug, [facility] [address] [facility] [id number] [place] [address] Aug, [facility] [address] [facility] [id number] [place] [address] Aug, [facility] [address] [id number] [place] [address] Aug, [facility] [address] [id number] [place] [address] Jul, [facility] [address] [facility] [id number] [place] [address] Jul, [facility] [address] [id number] [place] [address] Jun, [facility] [address] [id number] [place] [address] Jun, [facility] [address] [id number] [place] [address] May, [facility] [address] [id number] [place] [address] May, [facility] [address] [id number] [place] [address] Apr, [facility] [address] [id number] [place] [address] Apr, [facility] [address] [id number] [place] [address] Apr, [facility] [address] [facility] [id number] [place] [address] Mar, [facility] [address] [facility] [id number] [place] [address] Mar, [facility] [address] [id number] [place] [address] Mar, [facility] [address] [id number] [place] [address] Mar, [facility] [address] [id number] [place] [address] Feb, [facility] [address] [id number] [place] [address] Feb, [facility] [address] [facility] [id number] [place] [address] Feb, [facility] [address] [id number] [place] [address] Feb, [facility] [address] [facility] [id number] [place] [address] Feb, [facility] [address] [facility] [id number] [place] [address] Feb, [facility] [address] [id number] [place] [address] Jan, [facility] [address] [id number] [place] [address] Jan, [facility] [address] [id number] [place] [address] Jan, [facility] [address] [id number] [place] [address] Jan, [facility] [address] [id number] [place] [address] December, [facility] [address] [id number] [place] [address] December, [facility] [address] [id number] [place] [address] December, [facility] [address] [id number] [place] [address] December, [facility] [address] [id number] [place] [address] December, [facility] [address] [id number] [place] [address] December, [facility] [address] [id number] [place] [address] December, [facility] [address] [id number] [place] [address] December, [facility] [address] [id number] [place] [address] December, [facility] [address] [id number] [place] [address] December, [facility] [address] [id number] [place] [address] Nov, [facility] [address] [id number] [place] [address] Nov, [facility] [address] [id number] [place] [address] Oct, [facility] [address] [id number] [place] [address] Oct, [facility] [address] [id number] [place] [address] Oct, [facility] [address] [id number] [place] [address] Oct, [facility] [address] [id number] [place] [address] Oct, [facility] [address] [id number] [place] [address] Oct, [facility] [address] [id number] [place] [address] Aug, [facility] [address] [id number] [place] [address] Aug, [facility] [address] [id number] [place] [address] Aug, [facility] [address] [id number] [place] [address] Aug, [facility] [address] [id number] [place] [address] Aug, [facility] [address] [id number] [place] [address] Aug, [facility] [address] [id number] [place] [address] Aug, [facility] [address] [id number] [place] [address] Aug, [facility] [address] [id number] [place] [address] Jul, [facility] [address] [id number] [place] [address] Jul, [facility] [address] [id number] [place] [address] Jun, [facility] [address] [id number] [place] [address] Jun, [facility] [address] [id number] [place] [address] Jun, [facility] [address] [id number] [place] [address] Jun, [facility] [address] [id number] [place] [address] Jun, [facility] [address] [id number] [place] [address] Jun, [facility] [address] [id number] [place] [address] May, [facility] [address] [id number] [place] [address] May, [facility] [address] [id number] [place] [address] Apr, [facility] [address] [id number] [place] [address] Apr, [facility] [address] [id number] [place] [address] Mar, [facility] [address] [id number] [place] [address] Mar, [facility] [address] [id number] [place] [address] Mar, [facility] [address] [id number] [place] [address] Feb, [facility] [address] [id number] [place] [address] Jan, [facility] [address] [id number] [place] [address] December, [facility] [address] [id number] [place] [address] December, [facility] [address] [id number] [place] [address] December, [facility] [address] [id number] [place] [address] December, [facility] [address] [id number] [place] [address] December, [facility] [address] [id number] [place] [address] December, [facility] [address] [id number] [place] [address] Nov, [facility] [address] [id number] [place] [address] Nov, [facility] [address] [id number] [place] [address] Nov, [facility] [address] [id number] [place] [address] Oct, [facility] [address] [id number] [place] [address] Jun, [facility] [address] [id number] [place] [address] Jun, [facility] [address] [id number] [place] [address] Jun, [facility] [address] [id number] [place] [address] Jun, [facility] [address] [id number] [place] [address] Apr, [facility] [id number] [place] [address] Mar, [facility] [id number] [place] [address] Mar, [facility] [id number] [place] [address] Jan, [facility] [id number] [place] [address] December, [facility] [id number] [place] [address] Nov, [facility] [id number] [place] [address] Nov, [facility] [id number] [place] [address] Nov, [facility] [id number] [place] [address] Nov, [facility] [id number] [place] [address] Aug, [facility] [id number] [place] [address] Aug, [facility] [id number] [place] [address] Jul, [facility] [id number] [place] [address] Jun, [facility] [id number] [place] [address] Jun, [facility] [id number] [place] [address] Apr, [facility] [address] [id number] [place] [address] Feb, IMMUNIZATIONS No Known Immunizations SOCIAL HISTORY [...]
--- OUTSIDE RECORDS SUMMARY | 2020-02-11 01:26 | XMS REPORT ---
Author Author Elaine GALARZA Organization [facility] Address [address] [place] [address] Care Team Providers Care Machine Sander Name Role Phone MARI GALARZA Unavailable PROBLEMS Type Condition ICD9-CM Code LCN89-FS Code Onset Dates Condition S tatus SNOMED Code Problem ADHD, predominantly inattentive type F90.0 Active 84257813 Problem Primary insomnia F51.01 Active 397 2004 Problem Essential hypertension I10 Active 63407493 Problem Non-seasonal allergic rhinitis due to pollen J30.1 Active 73111209 Problem Major depressive disorder, recurrent episode, in full remission F33.42 Active 880018769 Problem Severe episode of recurrent major depressive disorder, without psychotic features F33.2 Active 45617227 Problem Seasonal allergies J30.2 Active 4 32154600 Problem Moderate episode of recurrent major depressive disorder F33.1 Active 721430069 Problem Intractable migraine without aura and with status migr ainosus G43.011 Active 197273031 Problem Migraine without aura and without status migrain osus, not intractable G43.009 Active 784398702 ALLERGIES No Known Allergies ENCOUNTERS Encounter Location Date Diagnosis [place] [address] [address] 28 Sep, 2019 ADHD, predominantly inattentive type F90 .0 [facility] [address] [address] Sep, [facility] [address] [address] Sep, ADHD, predominantly inattentive type F90 .0 [place] [address] [address] Aug, ADHD, predominantly inattentive type F90 .0 [place] [address] [address] Jul, ADHD, predominantly inattentive type F90 .0 [facility] [address] [address] Jun, ADHD, predominantly inattentive type F90 .0 ; Moderate episode of recurrent major depressive disorder F33.1 and Intractable migraine without aura and with status migrainosus G43.011 [facility] [address] [address] May, Severe episode of recurrent major depres sive disorder, without psychotic features F33.2 [facility] [address] [address] May, [facility] [address] [address] Apr, [facility] [address] [address] Mar, Moderate episode of recurrent major depr essive disorder F33.1 [facility] [address] [address] Mar, [facility] [address] [address] Feb, [facility] [address] [address] Feb, [facility] [address] [address] Jan, Major depressive disorder, recurrent epi sode, in full remission F33.42 [facility] [address] [address] Jan, Moderate episode of recurrent major depr essive disorder F33.1 ; Non- seasonal allergic rhinitis due to pollen J30.1 ; Migraine without aura and without status migrainosus, not intractable G43.009 and Sinus congestion R09.81 [facility] [address] [address] Jan, [facility] [address] [address] December, Moderate episode of recurrent major depr essive disorder F33.1 [facility] [address] [address] December, [facility] [address] [address] December, Moderate episode of recurrent major depr essive disorder F33.1 [place] [address] [address] Nov, Moderate episode of recurrent major depr essive disorder F33.1 and Intractable migraine without aura and with status migrainosus G43.011 [place] [address] [address] Nov, [place] [address] [address] Oct, Major depressive disorder, recurrent epi sode, in full remission F33.42 ; Intractable migraine without aura and with status migrainosus G43.011 ; Weight gain R63.5 ; Vision changes H53.9 and Other fdc (current) drug therapy Z79.899 [place] [address] [address] 15 Oct, 2018 Encounter for pre-employment examination Z02.1 [place] [address] [address] 15 Oct, 2018 [facility] [address] [facility] [id number] [address] [address] Sep, Acute non-recurrent maxillar y sinusitis J01.00 [place] [address] [address] Sep, [place] [address] [address] Aug, [facility] [address] [address] Jul, ADHD, predominantly inattentive type F90 .0 and Primary insomnia F51.01 [facility] [address] [address] Jun, ADHD, predominantly inattentive type F90 .0 [facility] [address] [address] May, ADHD, predominantly inattentive type F90 .0 ; Moderate episode of recurrent major depressive disorder F33.1 and Therapeutic drug monitoring Z51.81 [facility] [address] [address] May, [facility] [address] [address] Apr, ADHD, predominantly inattentive type F90 .0 [place] [address] [address] Apr, ADHD, predominantly inattentive type F90 .0 and Major depressive disorder, recurrent episode, in full remission F33.42 [facility] [address] [address] Mar, ADHD, predominantly inattentive type F90 .0 and Primary insomnia F51.01 [facility] [address] [address] Mar, [facility] [address] [address] Mar, ADHD, predominantly inattentive type F90 .0 and Primary insomnia F51.01 [facility] [address] [address] Feb, ADHD, predominantly inattentive type F90 .0 and Primary insomnia F51.01 [facility] [address] [address] Jan, ADHD, predominantly inattentive type F90 .0 and Primary insomnia F51.01 [facility] [address] [facility] [id number] [address] [place] [address] December, Seasonal allergies J30.2 and Post-nasal drip R09.82 [facility] [address] [address] December, ADHD, predominantly inattentive type F90 .0 and Primary insomnia F51.01 [facility] [address] [address] Nov, ADHD, predominantly inattentive type F90 .0 [facility] [address] [address] Oct, ADHD, predominantly inattentive type F90 .0 [facility] [address] [address] Oct, ADHD, predominantly inattentive type F90 .0 ; Primary insomnia F51.01 and Screening, lipid Z13.220 [facility] [address] [address] Sep, ADHD, predominantly inattentive type F90 .0 [place] [address] [address] Aug, ADHD, predominantly inattentive type F90 .0 and Primary insomnia F51.01 [facility] [address] [address] Jul, ADHD, predominantly inattentive type F90 .0 [facility] [address] [address] Jul, Primary insomnia F51.01 and ADHD, predom inantly inattentive type F90.0 [facility] [address] [address] Jun, ADHD, predominantly inattentive type F90 .0 [facility] [address] [address] May, ADHD, predominantly inattentive type F90 .0 [facility] [address] [address] Apr, ADHD, predominantly inattentive type F90 .0 [facility] [address] [address] Mar, ADHD, predominantly inattentive type F90 .0 ; Primary insomnia F51.01 ; Major depressive disorder, recurrent episode, in full remission F33.42 and Acne comedone L70.0 [place] [address] [address] Mar, Major depressive disorder, recurrent epi sode, in full remission F33.42 and ADHD, predominantly inattentive type F90.0 [place] [address] [address] Feb, ADHD, predominantly inattentive type F90 .0 [place] [address] [address] Feb, Primary insomnia F51.01 [place] [address] [address] Jan, ADHD, predominantly inattentive type F90 .0 and Primary insomnia F51.01 [place] [address] [address] December, ADHD, predominantly inattentive type F90 .0 and Primary insomnia F51.01 [place] [address] [address] Oct, ADHD, predominantly inattentive type F90 .0 and Primary insomnia F51.01 [place] [address] [address] Sep, ADHD, predominantly inattentive type F90 .0 and Primary insomnia F51.01 [place] [address] [address] Aug, ADHD, predominantly inattentive type F90 .0 and Primary insomnia F51.01 [place] [address] [address] Jul, Major depressive disorder, recurrent epi sode, in full remission F33.42 ; ADHD, predominantly inattentive type F90.0 ; Primary insomnia F51.01 ; Acute non-recurrent maxillary sinusitis J01.00 and Screening, lipid Z13.220 [facility] [address] [facility] [id number] [address] [address] Jun, Acute non-recurrent maxillar y sinusitis J01.00 [facility] [address] [address] Jun, ADHD, predominantly inattentive type F90 .0 [facility] [address] [address] May, [facility] [address] [address] Apr, [facility] [address] [facility] [id number] [address] [address] Feb, Rash R21 and Scabies B86 [facility] [address] [address] Feb, ADHD, predominantly inattentive type F90 .0 and Major depressive disorder, recurrent episode, in full remission F33.42 [facility] [address] [address] Feb, [facility] [address] [address] Oct, [facility] [address] [address] Sep, [facility] [address] [address] Sep, [facility] [address] [address] Aug, [facility] [address] [address] Jul, [facility] [address] [address] Jun, [facility] [address] [address] May, [facility] [address] [place] [address] May, ADHD, predominantly inattentive type F90 .0 and Major depressive disorder, recurrent episode, in full remission F33.42 [facility] [address] [place] [id number] [place] [address] Feb, Major depressive disorder, recurrent epi sode, moderate 296.32 [facility] [address] [address] Feb, [facility] [address] [address] Jan, [facility] [address] [address] Jan, [facility] [address] [address] December, [facility] [address] [address] Nov, [facility] [address] [address] Nov, [facility] [address] [address] Oct, [facility] [address] [address] Oct, [facility] [address] [address] Sep, [facility] [address] [address] Sep, [facility] [address] [address] Sep, [facility] [address] [address] Sep, [facility] [address] [address] Aug, [facility] [address] [address] Aug, [facility] [address] [facility] [id number] [place] [address] Aug, [facility] [address] [id number] [place] [address] Aug, [facility] [address] [id number] [place] [address] Aug, [facility] [address] [id number] [place] [address] Aug, [facility] [address] [facility] [id number] [place] [address] Jul, [facility] [address] [id number] [place] [address] Jul, [facility] [address] [id number] [place] [address] Jun, [facility] [address] [id number] [place] [address] Jun, [facility] [address] [id number] [place] [address] May, [facility] [address] [id number] [place] [address] May, [facility] [address] [id number] [place] [address] Apr, [facility] [address] [id number] [place] [address] Apr, [facility] [address] [id number] [place] [address] Apr, [facility] [address] [id number] [place] [address] Mar, [facility] [address] [id number] [place] [address] Mar, [facility] [address] [id number] [place] [address] Mar, [facility] [address] [id number] [place] [address] Mar, [facility] [address] [id number] [place] [address] Feb, [facility] [address] [id number] [place] [address] Feb, [facility] [address] [id number] [place] [address] Feb, [facility] [address] [id number] [place] [address] Feb, [facility] [address] [id number] [place] [address] Feb, [facility] [address] [id number] [place] [address] Feb, [facility] [address] [id number] [place] [address] Jan, [facility] [address] [id number] [place] [address] Jan, [facility] [address] [id number] [place] [address] Jan, [facility] [address] [id number] [place] [address] Jan, [facility] [address] [id number] [place] [address] December, [facility] [address] [id number] [place] [address] December, [facility] [address] [id number] [place] [address] December, [facility] [address] [id number] [place] [address] December, [facility] [address] [id number] [place] [address] December, [facility] [address] [id number] [place] [address] December, [facility] [address] [id number] [place] [address] December, [facility] [address] [id number] [place] [address] December, [facility] [address] [id number] [place] [address] December, [facility] [address] [id number] [place] [address] December, [facility] [address] [id number] [place] [address] Nov, [facility] [address] [id number] [place] [address] Nov, [facility] [address] [id number] [place] [address] Oct, [facility] [address] [id number] [place] [address] Oct, [facility] [address] [id number] [place] [address] Oct, [facility] [address] [id number] [place] [address] Oct, [facility] [address] [id number] [place] [address] Oct, [facility] [address] [id number] [place] [address] Oct, [facility] [address] [id number] [place] [address] Aug, [facility] [address] [id number] [place] [address] Aug, [facility] [address] [id number] [place] [address] Aug, [facility] [address] [id number] [place] [address] Aug, [facility] [address] [id number] [place] [address] Aug, [facility] [address] [id number] [place] [address] Aug, [facility] [address] [id number] [place] [address] Aug, [facility] [address] [id number] [place] [address] Aug, [facility] [address] [id number] [place] [address] Jul, [facility] [address] [id number] [place] [address] Jul, [facility] [address] [id number] [place] [address] Jun, [facility] [address] [id number] [place] [address] Jun, [facility] [address] [id number] [place] [address] Jun, [facility] [address] [id number] [place] [address] Jun, [facility] [address] [id number] [place] [address] Jun, [facility] [address] [id number] [place] [address] Jun, [facility] [address] [id number] [place] [address] May, [facility] [address] [id number] [place] [address] May, [facility] [address] [id number] [place] [address] 16 Apr, 2013 [facility] [address] [id number] [place] [address] 12 Apr, 2013 [facility] [address] [id number] [place] [address] Mar, [facility] [address] [id number] [place] [address] Mar, [facility] [address] [id number] [place] [address] Mar, [facility] [address] [id number] [place] [address] Feb, [facility] [address] [id number] [place] [address] Jan, [facility] [address] [id number] [place] [address] December, [facility] [address] [id number] [place] [address] December, [facility] [address] [id number] [place] [address] December, [facility] [address] [id number] [place] [address] December, [facility] [address] [id number] [place] [address] December, [facility] [address] [id number] [place] [address] December, [facility] [address] [id number] [place] [address] Nov, [facility] [address] [id number] [place] [address] Nov, [facility] [address] [id number] [place] [address] Nov, [facility] [address] [id number] [place] [address] Oct, [facility] [address] [id number] [place] [address] 14 Jun, 2012 [facility] [address] [id number] [place] [address] 14 Jun, 2012 [facility] [address] [id number] [place] [address] Jun, [facility] [address] [id number] [place] [address] Jun, [facility] [address] [id number] [place] [address] Apr, [facility] [address] [id number] [place] [address] Mar, [facility] [address] [id number] [place] [address] Mar, [facility] [address] [id number] [place] [address] Jan, [facility] [address] [id number] [place] [address] December, [facility] [address] [id number] [place] [address] Nov, [facility] [address] [id number] [place] [address] Nov, [facility] [address] [id number] [place] [address] Nov, [facility] [address] [id number] [place] [address] Nov, [facility] [address] [id number] [place] [address] Aug, [facility] [address] [id number] [place] [address] Aug, [facility] [address] [id number] [place] [address] Jul, [facility] [address] [id number] [place] [address] Jun, [facility] [address] [id number] [place] [address] Jun, [facility] [address] [id number] [place] [address] 14 Apr, 2011 [facility] [address] [id number] [place] [address] Feb, IMMUNIZATIONS No Known Immunizations SOCIAL HISTORY Never Assessed REASON FOR VISIT ADHD --YISSEL Taylor, contract, PDM PLAN OF CARE Activity Details Follow Up 4 Weeks Reason:migraine VITAL SIGNS Height 64 in 2018-11-21 Weight 202.5 lbs 2018-11-21 Temperature 98.2 degrees Fahrenheit 2018-11-21 Heart Rate 88 bpm 2018-11-21 Respiratory Rate 20 2018-11-21 Oximetry 98 % 2018-11-21 BMI 34.76 kg/m2 2018-11-21 Blood pressure systolic 142 mmHg 2018-11-21 Blood pressure diastolic 82 mmHg 2018-11-21 MEDICATIONS Medication Instructions Dosage Frequency Start Date End Date Duration S tatus Dexmethylphenidate HCl ER 40 MG Orally Once a day 1 capsule in the morning 24h Oct, 28 days Active Rizatriptan Benzoate 10 mg Orally Once a day 1 tablet as needed one time 24h Oct, 1 day(s) Active Flonase 50 mcg/act Nasally Once a day 1 spray in each nostril 24h Sep, 30 day(s) Active Effexor XR 150 MG Orally Once a day 2 capsules 24h Aug, 90 days Active Ambien 10 MG Orally Once a day 1 tablet at bedtime as needed 24h Jul, 28 days Active Topiramate 50 mg Orally 3 times a day 1 tablet 8h Oct, 30 day(s) Active RESULTS No Results PROCEDURES Procedure Date Ordered Result Body Site METHYLPHENIDATE November 21, 2018 09 PANEL (PROFILE 1) November 21, 2018 INSTRUCTIONS MEDICATIONS ADMINISTERED No Known Medications MEDICAL (GENERAL) HISTORY Type Description Date Medical History Hypertension Medical History ADHD Medical History depression Medical History anxiety Surgical History section Surgical History collar bone repair
--- OUTSIDE RECORDS SUMMARY | 2020-02-11 01:26 | XMS REPORT ---
Author Author Elaine GALARZA Organization [facility] Address [address] [place] [address] Care Team Providers Care Weed Eradicator Name Role Phone MARI GALARZA Unavailable PROBLEMS Type Condition ICD9-CM Code XDP60-LR Code Onset Dates Condition S tatus SNOMED Code Problem ADHD, predominantly inattentive type F90.0 Active 26271939 Problem Primary insomnia F51.01 Active 397 2004 Problem Essential hypertension I10 Active 52171545 Problem Non-seasonal allergic rhinitis due to pollen J30.1 Active 49596918 Problem Major depressive disorder, recurrent episode, in full remission F33.42 Active 534255925 Problem Severe episode of recurrent major depressive disorder, without psychotic features F33.2 Active 60869850 Problem Seasonal allergies J30.2 Active 4 70043747 Problem Moderate episode of recurrent major depressive disorder F33.1 Active 087592440 Problem Intractable migraine without aura and with status migr ainosus G43.011 Active 513188097 Problem Migraine without aura and without status migrain osus, not intractable G43.009 Active 174931813 ALLERGIES No Information ENCOUNTERS Encounter Location Date Diagnosis [place] [address] [address] 28 Sep, 2019 ADHD, predominantly inattentive type F90 .0 [facility] [address] [address] Sep, [facility] [address] [address] Sep, ADHD, predominantly inattentive type F90 .0 [place] [address] [address] Aug, ADHD, predominantly inattentive type F90 .0 [place] [address] [address] Jul, ADHD, predominantly inattentive type F90 .0 [facility] [address] [address] Jun, ADHD, predominantly inattentive type F90 .0 ; Moderate episode of recurrent major depressive disorder F33.1 and Intractable migraine without aura and with status migrainosus G43.011 [facility] [address] [address] May, Severe episode of recurrent major depres sive disorder, without psychotic features F33.2 [facility] [address] [address] May, [facility] [address] [address] Apr, [facility] [address] [address] Mar, Moderate episode of recurrent major depr essive disorder F33.1 [facility] [address] [address] Mar, [facility] [address] [address] Feb, [facility] [address] [address] Feb, [facility] [address] [address] Jan, Major depressive disorder, recurrent epi sode, in full remission F33.42 [facility] [address] [address] Jan, Moderate episode of recurrent major depr essive disorder F33.1 ; Non- seasonal allergic rhinitis due to pollen J30.1 ; Migraine without aura and without status migrainosus, not intractable G43.009 and Sinus congestion R09.81 [facility] [address] [address] Jan, [facility] [address] [address] December, Moderate episode of recurrent major depr essive disorder F33.1 [facility] [address] [address] December, [facility] [address] [address] December, Moderate episode of recurrent major depr essive disorder F33.1 [place] [address] [address] Nov, Moderate episode of recurrent major depr essive disorder F33.1 and Intractable migraine without aura and with status migrainosus G43.011 [place] [address] [address] Nov, [place] [address] [address] Oct, Major depressive disorder, recurrent epi sode, in full remission F33.42 ; Intractable migraine without aura and with status migrainosus G43.011 ; Weight gain R63.5 ; Vision changes H53.9 and [facility] Z79.899 [place] [address] [address] 15 Oct, 2018 Encounter for pre-employment examination Z02.1 [place] [address] [address] 15 Oct, 2018 [facility] [address] [facility] [id number] [address] [address] Sep, Acute non-recurrent maxillar y sinusitis J01.00 [place] [address] [address] Sep, [place] [address] [address] Aug, [facility] [address] [address] Jul, ADHD, predominantly inattentive type F90 .0 and Primary insomnia F51.01 [facility] [address] [address] Jun, ADHD, predominantly inattentive type F90 .0 [place] [address] [address] May, ADHD, predominantly inattentive type F90 .0 ; Moderate episode of recurrent major depressive disorder F33.1 and Therapeutic drug monitoring Z51.81 [place] [address] [address] May, [place] [address] [address] Apr, ADHD, predominantly inattentive type F90 .0 [place] [address] [address] Apr, ADHD, predominantly inattentive type F90 .0 and Major depressive disorder, recurrent episode, in full remission F33.42 [place] [address] [address] Mar, ADHD, predominantly inattentive type F90 .0 and Primary insomnia F51.01 [place] [address] [address] Mar, [place] [address] [address] Mar, ADHD, predominantly inattentive type F90 .0 and Primary insomnia F51.01 [place] [address] [address] Feb, ADHD, predominantly inattentive type F90 .0 and Primary insomnia F51.01 [place] [address] [address] Jan, ADHD, predominantly inattentive type F90 .0 and Primary insomnia F51.01 [facility] [address] [facility] [id number] [address] [place] [address] December, Seasonal allergies J30.2 and Post-nasal drip R09.82 [place] [address] [address] December, ADHD, predominantly inattentive type F90 .0 and Primary insomnia F51.01 [facility] [address] [address] Nov, ADHD, predominantly inattentive type F90 .0 [facility] [address] [address] Oct, ADHD, predominantly inattentive type F90 .0 [facility] [address] [address] Oct, ADHD, predominantly inattentive type F90 .0 ; Primary insomnia F51.01 and Screening, lipid Z13.220 [facility] [address] [address] Sep, ADHD, predominantly inattentive type F90 .0 [facility] [address] [address] Aug, ADHD, predominantly inattentive type F90 .0 and Primary insomnia F51.01 [facility] [address] [address] Jul, ADHD, predominantly inattentive type F90 .0 [facility] [address] [address] Jul, Primary insomnia F51.01 and ADHD, predom inantly inattentive type F90.0 [facility] [address] [address] Jun, ADHD, predominantly inattentive type F90 .0 [facility] [address] [address] May, ADHD, predominantly inattentive type F90 .0 [facility] [address] [address] Apr, ADHD, predominantly inattentive type F90 .0 [facility] [address] [address] Mar, ADHD, predominantly inattentive type F90 .0 ; Primary insomnia F51.01 ; Major depressive disorder, recurrent episode, in full remission F33.42 and Acne comedone L70.0 [place] [address] [place] [address] Mar, Major depressive disorder, recurrent epi sode, in full remission F33.42 and ADHD, predominantly inattentive 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 [place] [address] [address] Feb, ADHD, predominantly inattentive type F90 .0 [place] [address] [address] Feb, Primary insomnia F51.01 [place] [address] [address] Jan, ADHD, predominantly inattentive type F90 .0 and Primary insomnia F51.01 [place] [address] [address] December, ADHD, predominantly inattentive type F90 .0 and Primary insomnia F51.01 [place] [address] [address] Oct, ADHD, predominantly inattentive type F90 .0 and Primary insomnia F51.01 [place] [address] [address] Sep, ADHD, predominantly inattentive type F90 .0 and Primary insomnia F51.01 [place] [address] [address] Aug, ADHD, predominantly inattentive type F90 .0 and Primary insomnia F51.01 [place] [address] [address] Jul, Major depressive disorder, recurrent epi sode, in full remission F33.42 ; ADHD, predominantly inattentive type F90.0 ; Primary insomnia F51.01 ; Acute non-recurrent maxillary sinusitis J01.00 and Screening, lipid Z13.220 [facility] [address] [facility] [id number] [address] [address] Jun, Acute non-recurrent maxillar y sinusitis J01.00 [facility] [address] [address] Jun, ADHD, predominantly inattentive type F90 .0 [facility] [address] [address] May, [facility] [address] [address] Apr, [facility] [address] [facility] [id number] [address] [address] Feb, Rash R21 and Scabies B86 [facility] [address] [address] Feb, ADHD, predominantly inattentive type F90 .0 and Major depressive disorder, recurrent episode, in full remission F33.42 [facility] [address] [address] Feb, [facility] [address] [address] Oct, [facility] [address] [address] Sep, [facility] [address] [address] Sep, [facility] [address] [address] Aug, [facility] [address] [address] Jul, [facility] [address] [address] Jun, [facility] [address] [address] May, [facility] [address] [place] [address] May, ADHD, predominantly inattentive type F90 .0 and Major depressive disorder, recurrent episode, in full remission F33.42 [facility] [address] [place] [id number] [place] [address] Feb, Major depressive disorder, recurrent epi sode, moderate 296.32 [facility] [address] [address] Feb, [facility] [address] [address] Jan, [facility] [address] [address] Jan, [facility] [address] [address] December, [facility] [address] [address] Nov, [facility] [address] [address] Nov, [facility] [address] [address] Oct, [facility] [address] [address] Oct, [facility] [address] [address] Sep, [facility] [address] [address] Sep, [facility] [address] [address] Sep, [facility] [address] [address] Sep, [facility] [address] [address] Aug, [facility] [address] [address] Aug, [facility] [address] [id number] [place] [address] Aug, [facility] [address] [id number] [place] [address] Aug, [facility] [address] [id number] [place] [address] Aug, [facility] [address] [id number] [place] [address] Aug, [facility] [address] [facility] [id number] [place] [address] Jul, [facility] [address] [id number] [place] [address] Jul, [facility] [address] [id number] [place] [address] Jun, [facility] [address] [id number] [place] [address] Jun, [facility] [address] [id number] [place] [address] May, [facility] [address] [id number] [place] [address] May, [facility] [address] [id number] [place] [address] Apr, [facility] [address] [id number] [place] [address] Apr, [facility] [address] [id number] [place] [address] Apr, [facility] [address] [id number] [place] [address] Mar, [facility] [address] [id number] [place] [address] Mar, [facility] [address] [id number] [place] [address] Mar, [facility] [address] [id number] [place] [address] Mar, [facility] [address] [id number] [place] [address] Feb, [facility] [address] [id number] [place] [address] Feb, [facility] [address] [id number] [place] [address] Feb, [facility] [address] [id number] [place] [address] Feb, [facility] [address] [id number] [place] [address] Feb, [facility] [address] [id number] [place] [address] Feb, [facility] [address] [id number] [place] [address] Jan, [facility] [address] [id number] [place] [address] Jan, [facility] [address] [id number] [place] [address] Jan, [facility] [address] [id number] [place] [address] Jan, [facility] [address] [id number] [place] [address] December, [facility] [address] [id number] [place] [address] December, [facility] [address] [id number] [place] [address] December, [facility] [address] [id number] [place] [address] December, [facility] [address] [id number] [place] [address] December, [facility] [address] [id number] [place] [address] December, [facility] [address] [id number] [place] [address] December, [facility] [address] [id number] [place] [address] December, [facility] [address] [id number] [place] [address] December, [facility] [address] [id number] [place] [address] December, [facility] [address] [id number] [place] [address] Nov, [facility] [address] [id number] [place] [address] Nov, [facility] [address] [id number] [place] [address] Oct, [facility] [address] [id number] [place] [address] Oct, [facility] [address] [id number] [place] [address] Oct, [facility] [address] [id number] [place] [address] Oct, [facility] [address] [id number] [place] [address] Oct, [facility] [address] [id number] [place] [address] Oct, [facility] [address] [id number] [place] [address] Aug, [facility] [address] [id number] [place] [address] Aug, [facility] [address] [id number] [place] [address] Aug, [facility] [address] [id number] [place] [address] Aug, [facility] [address] [id number] [place] [address] Aug, [facility] [address] [id number] [place] [address] Aug, [facility] [address] [id number] [place] [address] Aug, [facility] [address] [id number] [place] [address] Aug, [facility] [address] [id number] [place] [address] Jul, [facility] [address] [id number] [place] [address] Jul, [facility] [address] [id number] [place] [address] Jun, [facility] [address] [id number] [place] [address] Jun, [facility] [address] [id number] [place] [address] Jun, [facility] [address] [id number] [place] [address] Jun, [facility] [address] [id number] [place] [address] Jun, [facility] [address] [id number] [place] [address] Jun, [facility] [address] [id number] [place] [address] May, [facility] [address] [id number] [place] [address] May, [facility] [address] [id number] [place] [address] 16 Apr, 2013 [facility] [address] [id number] [place] [address] 12 Apr, 2013 [facility] [address] [id number] [place] [address] Mar, [facility] [address] [id number] [place] [address] Mar, [facility] [address] [id number] [place] [address] Mar, [facility] [address] [id number] [place] [address] Feb, [facility] [address] [id number] [place] [address] Jan, [facility] [address] [id number] [place] [address] December, [facility] [address] [id number] [place] [address] December, [facility] [address] [id number] [place] [address] December, [facility] [address] [id number] [place] [address] December, [facility] [address] [id number] [place] [address] December, [facility] [address] [id number] [place] [address] December, [facility] [address] [id number] [place] [address] Nov, [facility] [address] [id number] [place] [address] Nov, [facility] [address] [id number] [place] [address] Nov, [facility] [address] [id number] [place] [address] Oct, [facility] [address] [id number] [place] [address] Jun, [facility] [address] [id number] [place] [address] Jun, [facility] [address] [id number] [place] [address] Jun, [facility] [address] [id number] [place] [address] Jun, [facility] [address] [id number] [place] [address] 18 Apr, 2012 [facility] [address] [id number] [place] [address] Mar, [facility] [address] [place] [id number] [place] [address] Mar, [facility] [address] [id number] [place] [address] Jan, [facility] [address] [id number] [place] [address] December, [facility] [address] [id number] [place] [address] Nov, [facility] [address] [place] [id number] [place] [address] Nov, [facility] [address] [id number] [place] [address] Nov, [facility] [address] [id number] [place] [address] Nov, [facility] [address] [id number] [place] [address] Aug, [facility] [address] [place] [address] [id number] [place] [address] Aug, [facility] [address] [id number] [place] [address] Jul, [facility] [address] [id number] [place] [address] Jun, [facility] [address] [place] [address] [id number] [place] [address] Jun, [facility] [address] [id number] [place] [address] 14 Apr, 2011 [facility] [address] [id number] [place] [address] Feb, IMMUNIZATIONS No Known Immunizations SOCIAL HISTORY [...]
--- OUTSIDE RECORDS SUMMARY | 2020-02-11 01:26 | XMS REPORT ---
Author Author Elaine GALARZA Organization [facility] Address [address] [place] [address] Care Team Providers Care It Software Engineer Name Role Phone MARI GALARZA Unavailable PROBLEMS Type Condition ICD9-CM Code [id number] Code Onset Dates Condition S tatus SNOMED Code Problem ADHD, predominantly inattentive type F90.0 Active 71361505 Problem Primary insomnia F51.01 Active 397 2004 Problem Essential hypertension I10 Active 84353584 Problem Non-seasonal allergic rhinitis due to pollen J30.1 Active 18869145 Problem Major depressive disorder, recurrent episode, in full remission F33.42 Active 114746518 Problem Severe episode of recurrent major depressive disorder, without psychotic features F33.2 Active 66504307 Problem Seasonal allergies J30.2 Active 4 19216710 Problem Moderate episode of recurrent major depressive disorder F33.1 Active 302228333 Problem Intractable migraine without aura and with status migr ainosus G43.011 Active 422488017 Problem Migraine without aura and without status migrain osus, not intractable G43.009 Active [id number] ALLERGIES No Information ENCOUNTERS Encounter Location Date Diagnosis [place] [address] [address] 28 Sep, 2019 ADHD, predominantly inattentive type F90 .0 [facility] [address] [address] Sep, [facility] [address] [address] Sep, ADHD, predominantly inattentive type F90 .0 [place] [address] [address] Aug, ADHD, predominantly inattentive type F90 .0 [place] [address] [address] Jul, ADHD, predominantly inattentive type F90 .0 [facility] [address] [address] Jun, ADHD, predominantly inattentive type F90 .0 ; Moderate episode of recurrent major depressive disorder F33.1 and Intractable migraine without aura and with status migrainosus G43.011 [facility] [address] [address] May, Severe episode of recurrent major depres sive disorder, without psychotic features F33.2 [facility] [address] [address] May, [facility] [address] [address] Apr, [facility] [address] [address] Mar, Moderate episode of recurrent major depr essive disorder F33.1 [facility] [address] [address] Mar, [facility] [address] [address] Feb, [facility] [address] [address] Feb, [facility] [address] [address] Jan, Major depressive disorder, recurrent epi sode, in full remission F33.42 [facility] [address] [address] Jan, Moderate episode of recurrent major depr essive disorder F33.1 ; Non- seasonal allergic rhinitis due to pollen J30.1 ; Migraine without aura and without status migrainosus, not intractable G43.009 and Sinus congestion R09.81 [facility] [address] [address] Jan, [facility] [address] [address] December, Moderate episode of recurrent major depr essive disorder F33.1 [facility] [address] [address] December, [facility] [address] [address] December, Moderate episode of recurrent major depr essive disorder F33.1 [place] [address] [address] Nov, Moderate episode of recurrent major depr essive disorder F33.1 and Intractable migraine without aura and with status migrainosus G43.011 [place] [address] [address] Nov, [place] [address] [address] Oct, Major depressive disorder, recurrent epi sode, in full remission F33.42 ; Intractable migraine without aura and with status migrainosus G43.011 ; Weight gain R63.5 ; Vision changes H53.9 and [facility] [place] Z79.899 [place] [address] [address] 15 Oct, 2018 Encounter for pre-employment examination Z02.1 [place] [address] [address] 15 Oct, 2018 [facility] [address] [facility] [id number] [place] [address] Sep, Acute non-recurrent maxillar y sinusitis J01.00 [place] [address] [address] Sep, [place] [address] [address] Aug, [facility] [address] [address] Jul, ADHD, predominantly inattentive type F90 .0 and Primary insomnia F51.01 [facility] [address] [address] Jun, ADHD, predominantly inattentive type F90 .0 [place] [address] [address] May, ADHD, predominantly inattentive type F90 .0 ; Moderate episode of recurrent major depressive disorder F33.1 and Therapeutic drug monitoring Z51.81 [place] [address] [address] May, [place] [address] [address] Apr, ADHD, predominantly inattentive type F90 .0 [place] [address] [address] Apr, ADHD, predominantly inattentive type F90 .0 and Major depressive disorder, recurrent episode, in full remission F33.42 [place] [address] [address] Mar, ADHD, predominantly inattentive type F90 .0 and Primary insomnia F51.01 [place] [address] [address] Mar, [place] [address] [address] Mar, ADHD, predominantly inattentive type F90 .0 and Primary insomnia F51.01 [place] [address] [address] Feb, ADHD, predominantly inattentive type F90 .0 and Primary insomnia F51.01 [place] [address] [address] Jan, ADHD, predominantly inattentive type F90 .0 and Primary insomnia F51.01 [facility] [address] [facility] [id number] [address] [place] [address] December, Seasonal allergies J30.2 and Post-nasal drip R09.82 [place] [address] [address] December, ADHD, predominantly inattentive type F90 .0 and Primary insomnia F51.01 [facility] [address] [address] Nov, ADHD, predominantly inattentive type F90 .0 [facility] [address] [address] Oct, ADHD, predominantly inattentive type F90 .0 [facility] [address] [address] Oct, ADHD, predominantly inattentive type F90 .0 ; Primary insomnia F51.01 and Screening, lipid Z13.220 [facility] [address] [address] Sep, ADHD, predominantly inattentive type F90 .0 [facility] [address] [address] Aug, ADHD, predominantly inattentive type F90 .0 and Primary insomnia F51.01 [facility] [address] [address] Jul, ADHD, predominantly inattentive type F90 .0 [facility] [address] [address] Jul, Primary insomnia F51.01 and ADHD, predom inantly inattentive type F90.0 [facility] [address] [address] Jun, ADHD, predominantly inattentive type F90 .0 [facility] [address] [address] May, ADHD, predominantly inattentive type F90 .0 [facility] [address] [address] Apr, ADHD, predominantly inattentive type F90 .0 [facility] [address] [address] Mar, ADHD, predominantly inattentive type F90 .0 ; Primary insomnia F51.01 ; Major depressive disorder, recurrent episode, in full remission F33.42 and Acne comedone L70.0 [place] [address] [place] [id number] Mar, Major depressive disorder, recurrent epi sode, in full remission F33.42 and ADHD, predominantly inattentive type F90.0 [place] [address] [address] Feb, ADHD, predominantly inattentive type F90 .0 [place] [address] [address] Feb, Primary insomnia F51.01 [place] [address] [address] Jan, ADHD, predominantly inattentive type F90 .0 and Primary insomnia F51.01 [place] [address] [address] December, ADHD, predominantly inattentive type F90 .0 and Primary insomnia F51.01 [place] [address] [address] Oct, ADHD, predominantly inattentive type F90 .0 and Primary insomnia F51.01 [place] [address] [address] Sep, ADHD, predominantly inattentive type F90 .0 and Primary insomnia F51.01 [place] [address] [address] Aug, ADHD, predominantly inattentive type F90 .0 and Primary insomnia F51.01 [place] [address] [address] Jul, Major depressive disorder, recurrent epi sode, in full remission F33.42 ; ADHD, predominantly inattentive type F90.0 ; Primary insomnia F51.01 ; Acute non-recurrent maxillary sinusitis J01.00 and Screening, lipid Z13.220 [facility] [address] [facility] [id number] [place] [address] Jun, Acute non-recurrent maxillar y sinusitis J01.00 [facility] [address] [address] Jun, ADHD, predominantly inattentive type F90 .0 [facility] [address] [address] May, [facility] [address] [address] Apr, [facility] [address] [facility] [id number] [place] [address] Feb, Rash R21 and Scabies B86 [facility] [address] [address] Feb, ADHD, predominantly inattentive type F90 .0 and Major depressive disorder, recurrent episode, in full remission F33.42 [facility] [address] [address] Feb, [facility] [address] [address] Oct, [facility] [address] [address] Sep, [facility] [address] [address] Sep, [facility] [address] [address] Aug, [facility] [address] [address] Jul, [facility] [address] [address] Jun, [facility] [address] [address] May, [facility] [address] [place] [address] May, ADHD, predominantly inattentive type F90 .0 and Major depressive disorder, recurrent episode, in full remission F33.42 [facility] [address] [place] [id number] [place] [address] Feb, Major depressive disorder, recurrent epi sode, moderate 296.32 [facility] [address] [address] Feb, [facility] [address] [address] Jan, [facility] [address] [address] Jan, [facility] [address] [address] December, [facility] [address] [address] Nov, [facility] [address] [address] Nov, [facility] [address] [address] Oct, [facility] [address] [address] Oct, [facility] [address] [address] Sep, [facility] [address] [address] Sep, [facility] [address] [address] Sep, [facility] [address] [address] Sep, [facility] [address] [address] Aug, [facility] [address] [address] Aug, [facility] [address] [id number] [place] [address] Aug, [facility] [address] [id number] [place] [address] Aug, [facility] [address] [id number] [place] [address] Aug, [facility] [address] [id number] [place] [address] Aug, [facility] [address] [facility] [id number] [place] [address] Jul, [facility] [address] [id number] [place] [address] Jul, [facility] [address] [id number] [place] [address] Jun, [facility] [address] [id number] [place] [address] Jun, [facility] [address] [id number] [place] [address] May, [facility] [address] [id number] [place] [address] May, [facility] [address] [id number] [place] [address] Apr, [facility] [address] [id number] [place] [address] Apr, [facility] [address] [id number] [place] [address] Apr, [facility] [address] [id number] [place] [address] Mar, [facility] [address] [id number] [place] [address] Mar, [facility] [address] [id number] [place] [address] Mar, [facility] [address] [id number] [place] [address] Mar, [facility] [address] [id number] [place] [address] Feb, [facility] [address] [id number] [place] [address] Feb, [facility] [address] [id number] [place] [address] Feb, [facility] [address] [id number] [place] [address] Feb, [facility] [address] [id number] [place] [address] Feb, [facility] [address] [id number] [place] [address] Feb, [facility] [address] [id number] [place] [address] Jan, [facility] [address] [id number] [place] [address] Jan, [facility] [address] [id number] [place] [address] Jan, [facility] [address] [id number] [place] [address] Jan, [facility] [address] [id number] [place] [address] December, [facility] [address] [id number] [place] [address] December, [facility] [address] [id number] [place] [address] December, [facility] [address] [id number] [place] [address] December, [facility] [address] [id number] [place] [address] December, [facility] [address] [id number] [place] [address] December, [facility] [address] [id number] [place] [address] December, [facility] [address] [id number] [place] [address] December, [facility] [address] [id number] [place] [address] December, [facility] [address] [id number] [place] [address] December, [facility] [address] [id number] [place] [address] Nov, [facility] [address] [id number] [place] [address] Nov, [facility] [address] [id number] [place] [address] Oct, [facility] [address] [id number] [place] [address] Oct, [facility] [address] [id number] [place] [address] Oct, [facility] [address] [id number] [place] [address] Oct, [facility] [address] [id number] [place] [address] Oct, [facility] [address] [id number] [place] [address] Oct, [facility] [address] [id number] [place] [address] Aug, [facility] [address] [id number] [place] [address] Aug, [facility] [address] [id number] [place] [address] Aug, [facility] [address] [id number] [place] [address] Aug, [facility] [address] [id number] [place] [address] Aug, [facility] [address] [id number] [place] [address] Aug, [facility] [address] [id number] [place] [address] Aug, [facility] [address] [id number] [place] [address] Aug, [facility] [address] [id number] [place] [address] Jul, [facility] [address] [id number] [place] [address] Jul, [facility] [address] [id number] [place] [address] Jun, [facility] [address] [id number] [place] [address] Jun, [facility] [address] [id number] [place] [address] Jun, [facility] [address] [id number] [place] [address] Jun, [facility] [address] [id number] [place] [address] Jun, [facility] [address] [id number] [place] [address] Jun, [facility] [address] [id number] [place] [address] May, [facility] [address] [id number] [place] [address] May, [facility] [address] [id number] [place] [address] 16 Apr, 2013 [facility] [address] [id number] [place] [address] 12 Apr, 2013 [facility] [address] [id number] [place] [address] Mar, [facility] [address] [id number] [place] [address] Mar, [facility] [address] [id number] [place] [address] Mar, [facility] [address] [id number] [place] [address] Feb, [facility] [address] [id number] [place] [address] Jan, [facility] [address] [id number] [place] [address] December, [facility] [address] [id number] [place] [address] December, [facility] [address] [id number] [place] [address] December, [facility] [address] [id number] [place] [address] December, [facility] [address] [id number] [place] [address] December, [facility] [address] [id number] [place] [address] December, [facility] [address] [id number] [place] [address] Nov, [facility] [address] [id number] [place] [address] Nov, [facility] [address] [id number] [place] [address] Nov, [facility] [address] [id number] [place] [address] Oct, [facility] [address] [id number] [place] [address] Jun, [facility] [address] [id number] [place] [address] Jun, [facility] [address] [id number] [place] [address] Jun, [facility] [address] [id number] [place] [address] Jun, [facility] [address] [id number] [place] [address] 18 Apr, 2012 [facility] [address] [id number] [place] [address] Mar, [facility] [address] [place] [id number] [place] [address] Mar, [facility] [address] [id number] [place] [address] Jan, [facility] [address] [id number] [place] [address] December, [facility] [address] [id number] [place] [address] Nov, [facility] [address] [address] [id number] [place] [address] Nov, [facility] [address] [id number] [place] [address] Nov, [facility] [address] [id number] [place] [address] Nov, [facility] [address] [id number] [place] [address] Aug, [facility] [address] [id number] [place] [address] Aug, [facility] [address] [id number] [place] [address] Jul, [facility] [address] [id number] [place] [address] Jun, [facility] [address] [id number] [place] [address] Jun, [facility] [address] [id number] [place] [address] 14 Apr, 2011 [facility] [address] [id number] [place] [address] Feb, IMMUNIZATIONS No Known Immunizations SOCIAL HISTORY [...]
--- OUTSIDE RECORDS SUMMARY | 2020-02-11 01:26 | XMS REPORT ---
Author Author Elaine GALARZA Organization [facility] [place] Address [address] [place] [address] Care Team Providers Care Weigher And Crusher Name Role Phone MARI GALARZA Unavailable PROBLEMS Type Condition ICD9-CM Code VLT50-RI Code Onset Dates Condition S tatus SNOMED Code Problem ADHD, predominantly inattentive type F90.0 Active 69459069 Problem Primary insomnia F51.01 Active 397 2004 Problem Essential hypertension I10 Active 75624462 Problem Non-seasonal allergic rhinitis due to pollen J30.1 Active 71247179 Problem Major depressive disorder, recurrent episode, in full remission F33.42 Active 662873124 Problem Severe episode of recurrent major depressive disorder, without psychotic features F33.2 Active 34309912 Problem Seasonal allergies J30.2 Active 4 03346131 Problem Moderate episode of recurrent major depressive disorder F33.1 Active 832055436 Problem Intractable migraine without aura and with status migr ainosus G43.011 Active 509847097 Problem Migraine without aura and without status migrain osus, not intractable G43.009 Active [id number] ALLERGIES No Information ENCOUNTERS Encounter Location Date Diagnosis [place] [address] [address] 28 Sep, 2019 ADHD, predominantly inattentive type F90 .0 [facility] [place] [address] [address] Sep, [facility] [place] [address] [address] Sep, ADHD, predominantly inattentive type F90 .0 [place] [address] [address] Aug, ADHD, predominantly inattentive type F90 .0 [place] [address] [address] Jul, ADHD, predominantly inattentive type F90 .0 [facility] [place] [address] [address] Jun, ADHD, predominantly inattentive type F90 .0 ; Moderate episode of recurrent major depressive disorder F33.1 and Intractable migraine without aura and with status migrainosus G43.011 [facility] [place] [address] [address] May, Severe episode of recurrent major depres sive disorder, without psychotic features F33.2 [facility] [place] [address] [address] May, [facility] [place] [address] [address] Apr, [facility] [place] [address] [address] Mar, Moderate episode of recurrent major depr essive disorder F33.1 [facility] [place] [address] [address] Mar, [facility] [place] [address] [address] Feb, [facility] [place] [address] [address] Feb, [facility] [place] [address] [address] Jan, Major depressive disorder, recurrent epi sode, in full remission F33.42 [facility] [place] [address] [address] Jan, Moderate episode of recurrent major depr essive disorder F33.1 ; Non- seasonal allergic rhinitis due to pollen J30.1 ; Migraine without aura and without status migrainosus, not intractable G43.009 and Sinus congestion R09.81 [facility] [place] [address] [address] Jan, [facility] [place] [address] [address] December, Moderate episode of recurrent major depr essive disorder F33.1 [facility] [place] [address] [address] December, [facility] [place] [address] [address] December, Moderate episode of recurrent major depr essive disorder F33.1 [place] [address] [address] Nov, Moderate episode of recurrent major depr essive disorder F33.1 and Intractable migraine without aura and with status migrainosus G43.011 [place] [address] [address] Nov, [place] [address] [address] Oct, Major depressive disorder, recurrent epi sode, in full remission F33.42 ; Intractable migraine without aura and with status migrainosus G43.011 ; Weight gain R63.5 ; Vision changes H53.9 and Other correction (current) drug therapy Z79.899 [place] [address] [address] 15 Oct, 2018 Encounter for pre-employment examination Z02.1 [place] [address] [address] 15 Oct, 2018 [facility] [address] [facility] [id number] [address] [address] Sep, Acute non-recurrent maxillar y sinusitis J01.00 [place] [address] [address] Sep, [place] [address] [address] Aug, [facility] [place] [address] [address] Jul, ADHD, predominantly inattentive type F90 .0 and Primary insomnia F51.01 [facility] [place] [address] [address] Jun, ADHD, predominantly inattentive type F90 .0 [place] [address] [address] May, ADHD, predominantly inattentive type F90 .0 ; Moderate episode of recurrent major depressive disorder F33.1 and Therapeutic drug monitoring Z51.81 [place] [address] [address] May, [place] [address] [address] Apr, ADHD, predominantly inattentive type F90 .0 [place] [address] [address] Apr, ADHD, predominantly inattentive type F90 .0 and Major depressive disorder, recurrent episode, in full remission F33.42 [place] [address] [address] Mar, ADHD, predominantly inattentive type F90 .0 and Primary insomnia F51.01 [place] [address] [address] Mar, [place] [address] [address] Mar, ADHD, predominantly inattentive type F90 .0 and Primary insomnia F51.01 [place] [address] [address] Feb, ADHD, predominantly inattentive type F90 .0 and Primary insomnia F51.01 [place] [address] [address] Jan, ADHD, predominantly inattentive type F90 .0 and Primary insomnia F51.01 [facility] [address] [facility] [id number] [address] [place] [address] December, Seasonal allergies J30.2 and Post-nasal drip R09.82 [place] [id number] [address] December, ADHD, predominantly inattentive type F90 .0 and Primary insomnia F51.01 [facility] [place] [address] [address] Nov, ADHD, predominantly inattentive type F90 .0 [facility] [place] [address] [address] Oct, ADHD, predominantly inattentive type F90 .0 [facility] [place] [address] [address] Oct, ADHD, predominantly inattentive type F90 .0 ; Primary insomnia F51.01 and Screening, lipid Z13.220 [facility] [place] [address] [address] Sep, ADHD, predominantly inattentive type F90 .0 [facility] [place] [address] [address] Aug, ADHD, predominantly inattentive type F90 .0 and Primary insomnia F51.01 [facility] [place] [address] [address] Jul, ADHD, predominantly inattentive type F90 .0 [facility] [place] [address] [address] Jul, Primary insomnia F51.01 and ADHD, predom inantly inattentive type F90.0 [facility] [place] [address] [address] Jun, ADHD, predominantly inattentive type F90 .0 [facility] [place] [address] [address] May, ADHD, predominantly inattentive type F90 .0 [facility] [place] [address] [address] Apr, ADHD, predominantly inattentive type F90 .0 [facility] [place] [address] [address] Mar, ADHD, predominantly inattentive type F90 .0 ; Primary insomnia F51.01 ; Major depressive disorder, recurrent episode, in full remission F33.42 and Acne comedone L70.0 [place] [address] [place] [id number] Mar, Major depressive disorder, recurrent epi sode, in full remission F33.42 and ADHD, predominantly inattentive type F90.0 [place] [address] [address] Feb, ADHD, predominantly inattentive type F90 .0 [place] [address] [address] Feb, Primary insomnia F51.01 [place] [address] [address] Jan, ADHD, predominantly inattentive type F90 .0 and Primary insomnia F51.01 [place] [address] [address] December, ADHD, predominantly inattentive type F90 .0 and Primary insomnia F51.01 [place] [address] [address] Oct, ADHD, predominantly inattentive type F90 .0 and Primary insomnia F51.01 [place] [address] [address] Sep, ADHD, predominantly inattentive type F90 .0 and Primary insomnia F51.01 [place] [address] [address] Aug, ADHD, predominantly inattentive type F90 .0 and Primary insomnia F51.01 [place] [address] [address] Jul, Major depressive disorder, recurrent epi sode, in full remission F33.42 ; ADHD, predominantly inattentive type F90.0 ; Primary insomnia F51.01 ; Acute non-recurrent maxillary sinusitis J01.00 and Screening, lipid Z13.220 [facility] [address] [facility] [id number] [address] [address] Jun, Acute non-recurrent maxillar y sinusitis J01.00 [facility] [place] [address] [address] Jun, ADHD, predominantly inattentive type F90 .0 [facility] [place] [address] [address] May, [facility] [place] [address] [address] Apr, [facility] [address] [facility] [id number] [address] [address] Feb, Rash R21 and Scabies B86 [facility] [place] [address] [address] Feb, ADHD, predominantly inattentive type F90 .0 and Major depressive disorder, recurrent episode, in full remission F33.42 [facility] [place] [address] [address] Feb, [facility] [place] [address] [address] Oct, [facility] [place] [address] [address] Sep, [facility] [place] [address] [address] Sep, [facility] [place] [address] [address] Aug, [facility] [place] [address] [address] Jul, [facility] [place] [address] [address] Jun, [facility] [place] [address] [address] May, [facility] [place] [address] [place] [address] May, ADHD, predominantly inattentive type F90 .0 and Major depressive disorder, recurrent episode, in full remission F33.42 [facility] [place] [address] [place] [id number] [place] [address] Feb, Major depressive disorder, recurrent epi sode, moderate 296.32 [facility] [place] [address] [address] Feb, [facility] [place] [address] [address] Jan, [facility] [place] [address] [address] Jan, [facility] [place] [address] [address] December, [facility] [place] [address] [address] Nov, [facility] [place] [address] [address] Nov, [facility] [place] [address] [address] Oct, [facility] [place] [address] [address] Oct, [facility] [place] [address] [address] Sep, [facility] [place] [address] [address] Sep, [facility] [place] [address] [address] Sep, [facility] [place] [address] [address] Sep, [facility] [place] [address] [address] Aug, [facility] [place] [address] [address] Aug, [facility] [address] [id number] [place] [address] Aug, [facility] [address] [id number] [place] [address] Aug, [facility] [address] [id number] [place] [address] Aug, [facility] [address] [id number] [place] [address] Aug, [facility] [address] [facility] [id number] [place] [address] Jul, [facility] [address] [id number] [place] [address] Jul, [facility] [address] [id number] [place] [address] Jun, [facility] [address] [id number] [place] [address] Jun, [facility] [address] [id number] [place] [address] May, [facility] [address] [id number] [place] [address] May, [facility] [address] [id number] [place] [address] Apr, [facility] [address] [id number] [place] [address] Apr, [facility] [address] [id number] [place] [address] Apr, [facility] [address] [id number] [place] [address] Mar, [facility] [address] [id number] [place] [address] Mar, [facility] [address] [id number] [place] [address] Mar, [facility] [address] [id number] [place] [address] Mar, [facility] [address] [id number] [place] [address] Feb, [facility] [address] [id number] [place] [address] Feb, [facility] [address] [id number] [place] [address] Feb, [facility] [address] [id number] [place] [address] Feb, [facility] [address] [id number] [place] [address] Feb, [facility] [address] [id number] [place] [address] Feb, [facility] [address] [id number] [place] [address] Jan, [facility] [address] [id number] [place] [address] Jan, [facility] [address] [id number] [place] [address] Jan, [facility] [address] [id number] [place] [address] Jan, [facility] [address] [id number] [place] [address] December, [facility] [address] [id number] [place] [address] December, [facility] [address] [id number] [place] [address] December, [facility] [address] [id number] [place] [address] December, [facility] [address] [id number] [place] [address] December, [facility] [address] [id number] [place] [address] December, [facility] [address] [id number] [place] [address] December, [facility] [address] [id number] [place] [address] December, [facility] [address] [id number] [place] [address] December, [facility] [address] [id number] [place] [address] December, [facility] [address] [id number] [place] [address] Nov, [facility] [address] [id number] [place] [address] Nov, [facility] [address] [id number] [place] [address] Oct, [facility] [address] [id number] [place] [address] Oct, [facility] [address] [id number] [place] [address] Oct, [facility] [address] [id number] [place] [address] Oct, [facility] [address] [id number] [place] [address] Oct, [facility] [address] [id number] [place] [address] Oct, [facility] [address] [id number] [place] [address] Aug, [facility] [address] [id number] [place] [address] Aug, [facility] [address] [id number] [place] [address] Aug, [facility] [address] [id number] [place] [address] Aug, [facility] [address] [id number] [place] [address] Aug, [facility] [address] [id number] [place] [address] Aug, [facility] [address] [id number] [place] [address] Aug, [facility] [address] [id number] [place] [address] Aug, [facility] [address] [id number] [place] [address] Jul, [facility] [address] [id number] [place] [address] Jul, [facility] [address] [id number] [place] [address] Jun, [facility] [address] [id number] [place] [address] Jun, [facility] [address] [id number] [place] [address] Jun, [facility] [address] [id number] [place] [address] Jun, [facility] [address] [id number] [place] [address] Jun, [facility] [address] [id number] [place] [address] Jun, [facility] [address] [id number] [place] [address] May, [facility] [address] [id number] [place] [address] May, [facility] [address] [id number] [place] [address] 16 Apr, 2013 [facility] [address] [id number] [place] [address] 12 Apr, 2013 [facility] [address] [id number] [place] [address] Mar, [facility] [address] [id number] [place] [address] Mar, [facility] [address] [id number] [place] [address] Mar, [facility] [address] [id number] [place] [address] Feb, [facility] [address] [id number] [place] [address] Jan, [facility] [address] [id number] [place] [address] December, [facility] [address] [id number] [place] [address] December, [facility] [address] [id number] [place] [address] December, [facility] [address] [id number] [place] [address] December, [facility] [address] [id number] [place] [address] December, [facility] [address] [id number] [place] [address] December, [facility] [address] [id number] [place] [address] Nov, [facility] [address] [id number] [place] [address] Nov, [facility] [address] [id number] [place] [address] Nov, [facility] [address] [id number] [place] [address] Oct, [facility] [address] [id number] [place] [address] Jun, [facility] [address] [id number] [place] [address] Jun, [facility] [address] [id number] [place] [address] Jun, [facility] [address] [id number] [place] [address] Jun, [facility] [address] [id number] [place] [address] 18 Apr, 2012 [facility] [address] [id number] [place] [address] Mar, [facility] [address] [id number] [place] [address] Mar, [facility] [address] [id number] [place] [address] Jan, [facility] [address] [id number] [place] [address] December, [facility] [address] [id number] [place] [address] Nov, [facility] [address] [id number] [place] [address] Nov, [facility] [address] [id number] [place] [address] Nov, [facility] [address] [id number] [place] [address] Nov, [facility] [address] [id number] [place] [address] Aug, [facility] [address] [id number] [place] [address] Aug, [facility] [address] [id number] [place] [address] Jul, [facility] [address] [id number] [place] [address] Jun, [facility] [id number] [place] [address] Jun, [facility] [address] [id number] [place] [address] 14 Apr, 2011 [facility] [address] [id number] [place] [address] Feb, IMMUNIZATIONS No Known Immunizations SOCIAL HISTORY [...]
--- OUTSIDE RECORDS SUMMARY | 2020-02-11 01:27 | XMS REPORT ---
Author Author Elaine GALARZA Organization [facility] Address [address] [place] [address] Care Team Providers Care Observer Electrical Prospecting Name Role Phone MARI GALARZA Unavailable PROBLEMS Type Condition ICD9-CM Code UPH32-EZ Code Onset Dates Condition S tatus SNOMED Code Problem ADHD, predominantly inattentive type F90.0 Active 36732614 Problem Primary insomnia F51.01 Active 397 2004 Problem Essential hypertension I10 Active 76182500 Problem Migraine without aura and without status migrain osus, not intractable G43.009 Active 904302839 Problem Major depressive disorder, recurrent episode, in full remission F33.42 Active 029108796 Problem Severe episode of recurrent major depressive disorder, without psychotic features F33.2 Active 87945556 Problem Seasonal allergies J30.2 Active 4 24069115 Problem Moderate episode of recurrent major depressive disorder F33.1 Active 894899156 Problem Intractable migraine without aura and with status migr ainosus G43.011 Active 433121396 Problem Non-seasonal allergic rhinitis due to pollen J30.1 Active 92412659 ALLERGIES No Information ENCOUNTERS Encounter Location Date Diagnosis [place] [address] [address] Aug, ADHD, predominantly inattentive type F90 .0 [place] [id number] [address] Jul, ADHD, predominantly inattentive type F90 .0 [place] [address] [address] Jun, ADHD, predominantly inattentive type F90 .0 ; Moderate episode of recurrent major depressive disorder F33.1 and Intractable migraine without aura and with status migrainosus G43.011 [place] [address] [address] May, Severe episode of recurrent major depres sive disorder, without psychotic features F33.2 [facility] [address] [place] [address] [place] [address] May, [facility] [address] [address] Apr, [facility] [address] [address] Mar, Moderate episode of recurrent major depr essive disorder F33.1 [facility] [address] [address] Mar, [facility] [address] [address] Feb, [facility] [address] [address] Feb, [facility] [address] [address] Jan, Major depressive disorder, recurrent epi sode, in full remission F33.42 [facility] [address] [address] Jan, Moderate episode of recurrent major depr essive disorder F33.1 ; Non- seasonal allergic rhinitis due to pollen J30.1 ; Migraine without aura and without status migrainosus, not intractable G43.009 and Sinus congestion R09.81 [facility] [address] [address] Jan, [facility] [address] [address] December, Moderate episode of recurrent major depr essive disorder F33.1 [facility] [address] [address] December, [facility] [address] [address] December, Moderate episode of recurrent major depr essive disorder F33.1 [facility] [address] [address] Nov, Moderate episode of recurrent major depr essive disorder F33.1 and Intractable migraine without aura and with status migrainosus G43.011 [facility] [address] [address] Nov, [facility] [address] [address] Oct, Major depressive disorder, recurrent epi sode, in full remission F33.42 ; Intractable migraine without aura and with status migrainosus G43.011 ; Weight gain R63.5 ; Vision changes H53.9 and 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 [place] [address] [address] Oct, Encounter for pre-employment examination Z02.1 [place] [address] [address] Oct, [facility] [address] [facility] [id number] [place] [address] 20 Sep, 2018 Acute non-recurrent maxillar y sinusitis J01.00 [place] [address] [address] 14 Sep, 2018 [facility] [address] [address] Aug, [place] [address] [address] Jul, ADHD, predominantly inattentive type F90 .0 and Primary insomnia F51.01 [place] [address] [address] Jun, ADHD, predominantly inattentive type F90 .0 [place] [address] [address] May, ADHD, predominantly inattentive type F90 .0 ; Moderate episode of recurrent major depressive disorder F33.1 and Therapeutic drug monitoring Z51.81 [place] [address] [address] May, [place] [address] [address] Apr, ADHD, predominantly inattentive type F90 .0 [place] [address] [address] Apr, ADHD, predominantly inattentive type F90 .0 and Major depressive disorder, recurrent episode, in full remission F33.42 [place] [address] [address] Mar, ADHD, predominantly inattentive type F90 .0 and Primary insomnia F51.01 [place] [address] [address] Mar, [place] [address] [address] Mar, ADHD, predominantly inattentive type F90 .0 and Primary insomnia F51.01 [place] [address] [address] Feb, ADHD, predominantly inattentive type F90 .0 and Primary insomnia F51.01 [place] [address] [address] Jan, ADHD, predominantly inattentive type F90 .0 and Primary insomnia F51.01 [facility] [address] [facility] [id number] [address] [place] [address] December, Seasonal allergies J30.2 and Post-nasal drip R09.82 [place] [address] [address] December, ADHD, predominantly inattentive type F90 .0 and Primary insomnia F51.01 [place] [address] [address] Nov, ADHD, predominantly inattentive type F90 .0 [place] [address] [address] Oct, ADHD, predominantly inattentive type F90 .0 [facility] [address] [address] Oct, ADHD, predominantly inattentive type F90 .0 ; Primary insomnia F51.01 and Screening, lipid Z13.220 [facility] [address] [address] Sep, ADHD, predominantly inattentive type F90 .0 [facility] [address] [address] Aug, ADHD, predominantly inattentive type F90 .0 and Primary insomnia F51.01 [facility] [address] [address] Jul, ADHD, predominantly inattentive type F90 .0 [facility] [address] [address] Jul, Primary insomnia F51.01 and ADHD, predom inantly inattentive type F90.0 [facility] [address] [address] Jun, ADHD, predominantly inattentive type F90 .0 [facility] [address] [address] May, ADHD, predominantly inattentive type F90 .0 [facility] [address] [address] Apr, ADHD, predominantly inattentive type F90 .0 [facility] [address] [address] Mar, ADHD, predominantly inattentive type F90 .0 ; Primary insomnia F51.01 ; Major depressive disorder, recurrent episode, in full remission F33.42 and Acne comedone L70.0 [facility] [address] [address] Mar, Major depressive disorder, recurrent epi sode, in full remission F33.42 and ADHD, predominantly inattentive type F90.0 [facility] [address] [address] Feb, ADHD, predominantly inattentive type F90 .0 [place] [address] [address] Feb, Primary insomnia F51.01 [facility] [address] [address] Jan, ADHD, predominantly inattentive type F90 .0 and Primary insomnia F51.01 [place] [address] [address] December, ADHD, predominantly inattentive type F90 .0 and Primary insomnia F51.01 [place] [address] [address] Oct, ADHD, predominantly inattentive type F90 .0 and Primary insomnia F51.01 [place] [address] [address] Sep, ADHD, predominantly inattentive type F90 .0 and Primary insomnia F51.01 [place] [address] [address] Aug, ADHD, predominantly inattentive type F90 .0 and Primary insomnia F51.01 [place] [address] [address] Jul, Major depressive disorder, recurrent epi sode, in full remission F33.42 ; ADHD, predominantly inattentive type F90.0 ; Primary insomnia F51.01 ; Acute non-recurrent maxillary sinusitis J01.00 and Screening, lipid Z13.220 [facility] [address] [facility] [id number] [address] [place] [address] Jun, Acute non-recurrent maxillar y sinusitis J01.00 [facility] [address] [address] Jun, ADHD, predominantly inattentive type F90 .0 [facility] [address] [address] May, [facility] [address] [id number] [place] [address] Apr, [facility] [address] [facility] [id number] [address] [place] [address] Feb, 2016 Rash R21 and Scabies B86 [facility] [address] [id number] [place] [address] Feb, ADHD, predominantly inattentive type F90 .0 and Major depressive disorder, recurrent episode, in full remission F33.42 [facility] [address] [place] [id number] [place] [address] Feb, [facility] [address] [address] Oct, [facility] [address] [id number] [place] [address] Sep, [facility] [address] [address] Sep, [facility] [address] [place] [id number] [place] [address] Aug, [facility] [address] [place] [id number] [place] [address] Jul, [facility] [address] [place] [id number] [place] [address] Jun, [facility] [address] [place] [address] [place] [address] May, [facility] [address] [place] [id number] [place] [address] May, ADHD, predominantly inattentive type F90 .0 and Major depressive disorder, recurrent episode, in full remission F33.42 [facility] [address] [place] [id number] [place] [address] Feb, Major depressive disorder, recurrent epi sode, moderate 296.32 [facility] [address] [address] Feb, [facility] [address] [id number] [place] [address] Jan, [facility] [address] [id number] [place] [address] Jan, [facility] [address] [id number] [place] [address] December, [facility] [address] [id number] [place] [address] Nov, [facility] [address] [id number] [place] [address] Nov, [facility] [address] [id number] [place] [address] Oct, [facility] [address] [id number] [place] [address] Oct, [facility] [address] [id number] [place] [address] Sep, [facility] [address] [id number] [place] [address] Sep, [facility] [address] [id number] [place] [address] Sep, [facility] [address] [id number] [place] [address] Sep, [facility] [address] [id number] [place] [address] Aug, [facility] [address] [id number] [place] [address] Aug, [facility] [address] [id number] [place] [address] Aug, [facility] [address] [id number] [place] [address] Aug, [facility] [address] [id number] [place] [address] Aug, [facility] [address] [id number] [place] [address] Aug, [facility] [address] [facility] [id number] [facility] [place] [address] Jul, [facility] [address] [id number] [place] [address] Jul, [facility] [address] [id number] [place] [address] Jun, [facility] [address] [id number] [place] [address] Jun, [facility] [address] [id number] [place] [address] May, [facility] [address] [id number] [place] [address] May, [facility] [address] [id number] [place] [address] Apr, [facility] [address] [id number] [place] [address] Apr, [facility] [address] [id number] [place] [address] Apr, [facility] [address] [id number] [place] [address] Mar, [facility] [address] [id number] [place] [address] Mar, [facility] [address] [id number] [place] [address] Mar, [facility] [address] [id number] [place] [address] Mar, [facility] [address] [id number] [place] [address] Feb, [facility] [address] [id number] [place] [address] Feb, [facility] [address] [id number] [place] [address] Feb, [facility] [address] [facility] [id number] [place] [address] Feb, [facility] [address] [facility] [id number] [place] [address] Feb, [facility] [address] [facility] [id number] [place] [address] Feb, [facility] [address] [id number] [place] [address] Jan, [facility] [address] [facility] [id number] [place] [address] Jan, [facility] [address] [id number] [place] [address] Jan, [facility] [address] [id number] [place] [address] Jan, [facility] [address] [id number] [place] [address] December, [facility] [address] [id number] [place] [address] December, [facility] [address] [id number] [place] [address] December, [facility] [address] [id number] [place] [address] December, [facility] [address] [id number] [place] [address] December, [facility] [address] [id number] [place] [address] December, [facility] [address] [id number] [place] [address] December, [facility] [address] [id number] [place] [address] December, [facility] [address] [id number] [place] [address] December, [facility] [address] [id number] [place] [address] December, [facility] [address] [facility] [id number] [place] [address] Nov, [facility] [address] [facility] [id number] [place] [address] Nov, [facility] [address] [id number] [place] [address] Oct, [facility] [address] [id number] [place] [address] Oct, [facility] [address] [facility] [id number] [place] [address] Oct, [facility] [address] [id number] [place] [address] Oct, [facility] [address] [id number] [place] [address] Oct, [facility] [address] [id number] [place] [address] Oct, [facility] [address] [id number] [place] [address] Aug, [facility] [address] [id number] [place] [address] Aug, [facility] [address] [id number] [place] [address] Aug, [facility] [address] [id number] [place] [address] Aug, [facility] [address] [id number] [place] [address] Aug, [facility] [address] [id number] [place] [address] Aug, [facility] [address] [id number] [place] [address] Aug, [facility] [address] [id number] [place] [address] Aug, [facility] [address] [id number] [place] [address] 05 Jul, 2013 [facility] [address] [id number] [place] [address] Jul, [facility] [address] [id number] [place] [address] Jun, [facility] [address] [id number] [place] [address] Jun, [facility] [address] [id number] [place] [address] Jun, [facility] [address] [id number] [place] [address] Jun, [facility] [address] [id number] [place] [address] Jun, [facility] [address] [id number] [place] [address] Jun, [facility] [address] [id number] [place] [address] May, [facility] [address] [id number] [place] [address] May, [facility] [address] [id number] [place] [address] Apr, [facility] [address] [id number] [place] [address] Apr, [facility] [address] [id number] [place] [address] Mar, [facility] [address] [id number] [place] [address] Mar, [facility] [address] [id number] [place] [address] Mar, [facility] [address] [id number] [place] [address] Feb, [facility] [address] [id number] [place] [address] Jan, [facility] [address] [id number] [place] [address] December, [facility] [address] [id number] [place] [address] December, [facility] [address] [id number] [place] [address] December, [facility] [address] [id number] [place] [address] December, [facility] [address] [id number] [place] [address] December, [facility] [address] [id number] [place] [address] December, [facility] [address] [id number] [place] [address] Nov, [facility] [address] [id number] [place] [address] Nov, [facility] [address] [id number] [place] [address] Nov, [facility] [address] [id number] [place] [address] Oct, [facility] [address] [id number] [place] [address] Jun, [facility] [address] [id number] [place] [address] 14 Jun, 2012 [facility] [address] [id number] [place] [address] Jun, [facility] [address] [id number] [place] [address] Jun, [facility] [address] [id number] [place] [address] Apr, [facility] [address] [id number] [place] [address] Mar, [facility] [address] [id number] [place] [address] Mar, [facility] [address] [id number] [place] [address] Jan, [facility] [address] [id number] [place] [address] December, [facility] [address] [id number] [place] [address] Nov, [facility] [address] [place] [id number] [place] [address] Nov, [facility] [address] [id number] [place] [address] Nov, [facility] [address] [place] [id number] [place] [address] Nov, [facility] [address] [id number] [place] [address] Aug, [facility] [id number] [place] [address] Aug, [facility] [address] [id number] [place] [address] Jul, [facility] [id number] [place] [address] Jun, [facility] [address] [id number] [place] [address] Jun, [facility] [address] [id number] [place] [address] Apr, [facility] [address] [id number] [place] [address] Feb, IMMUNIZATIONS No Known Immunizations SOCIAL HISTORY [...]
--- OUTSIDE RECORDS SUMMARY | 2020-02-11 01:27 | XMS REPORT ---
Author Author Elaine GALARZA Organization [facility] Address [address] [place] [address] Care Team Providers Care Running Rigger Name Role Phone MARI GALARZA Unavailable PROBLEMS Type Condition ICD9-CM Code [id number] Code Onset Dates Condition S tatus SNOMED Code Problem ADHD, predominantly inattentive type F90.0 Active 00078620 Problem Primary insomnia F51.01 Active 397 2004 Problem Essential hypertension I10 Active 43319288 Problem Non-seasonal allergic rhinitis due to pollen J30.1 Active 05920978 Problem Major depressive disorder, recurrent episode, in full remission F33.42 Active 452073354 Problem Severe episode of recurrent major depressive disorder, without psychotic features F33.2 Active 44126826 Problem Seasonal allergies J30.2 Active 4 11901219 Problem Moderate episode of recurrent major depressive disorder F33.1 Active 134262175 Problem Intractable migraine without aura and with status migr ainosus G43.011 Active 458691063 Problem Migraine without aura and without status migrain osus, not intractable G43.009 Active [id number] ALLERGIES No Information ENCOUNTERS Encounter Location Date Diagnosis [place] [address] [address] Sep, ADHD, predominantly inattentive type F90 .0 [facility] [address] [address] Aug, ADHD, predominantly inattentive type F90 .0 [place] [address] [address] Jul, ADHD, predominantly inattentive type F90 .0 [place] [address] [address] Jun, ADHD, predominantly inattentive type F90 .0 ; Moderate episode of recurrent major depressive disorder F33.1 and Intractable migraine without aura and with status migrainosus G43.011 [facility] [address] [address] May, Severe episode of recurrent major depres sive disorder, without psychotic features F33.2 [facility] [address] [address] May, [facility] [address] [address] Apr, [facility] [address] [address] Mar, Moderate episode of recurrent major depr essive disorder F33.1 [facility] [address] [address] Mar, [facility] [address] [address] Feb, [facility] [address] [address] Feb, [facility] [address] [address] Jan, Major depressive disorder, recurrent epi sode, in full remission F33.42 [facility] [address] [address] Jan, Moderate episode of recurrent major depr essive disorder F33.1 ; Non- seasonal allergic rhinitis due to pollen J30.1 ; Migraine without aura and without status migrainosus, not intractable G43.009 and Sinus congestion R09.81 [facility] [address] [address] Jan, [facility] [address] [address] December, Moderate episode of recurrent major depr essive disorder F33.1 [facility] [address] [address] December, [facility] [address] [address] December, Moderate episode of recurrent major depr essive disorder F33.1 [place] [address] [address] Nov, Moderate episode of recurrent major depr essive disorder F33.1 and Intractable migraine without aura and with status migrainosus G43.011 [place] [address] [address] Nov, [place] [address] [address] Oct, Major depressive disorder, recurrent epi sode, in full remission F33.42 ; Intractable migraine without aura and with status migrainosus G43.011 ; Weight gain R63.5 ; Vision changes H53.9 and 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 [id number] [address] [place] [address] 20 Sep, 2018 Acute non-recurrent maxillar y sinusitis J01.00 [place] [address] [address] Sep, [place] [address] [address] Aug, [place] [address] [address] Jul, ADHD, predominantly inattentive type F90 .0 and Primary insomnia F51.01 [place] [address] [address] Jun, ADHD, predominantly inattentive type F90 .0 [place] [address] [address] May, ADHD, predominantly inattentive type F90 .0 ; Moderate episode of recurrent major depressive disorder F33.1 and Therapeutic drug monitoring Z51.81 [place] [address] [address] May, [place] [address] [address] Apr, ADHD, predominantly inattentive type F90 .0 [place] [address] [address] Apr, ADHD, predominantly inattentive type F90 .0 and Major depressive disorder, recurrent episode, in full remission F33.42 [place] [address] [address] Mar, ADHD, predominantly inattentive type F90 .0 and Primary insomnia F51.01 [place] [address] [address] Mar, [place] [address] [address] Mar, ADHD, predominantly inattentive type F90 .0 and Primary insomnia F51.01 [place] [address] [address] Feb, ADHD, predominantly inattentive type F90 .0 and Primary insomnia F51.01 [place] [address] [address] Jan, ADHD, predominantly inattentive type F90 .0 and Primary insomnia F51.01 [facility] [address] [facility] [id number] [address] [place] [address] December, Seasonal allergies J30.2 and Post-nasal drip R09.82 [place] [address] [address] December, ADHD, predominantly inattentive type F90 .0 and Primary insomnia F51.01 [place] [address] [address] Nov, ADHD, predominantly inattentive type F90 .0 [facility] [address] [address] Oct, ADHD, predominantly inattentive type F90 .0 [facility] [address] [address] Oct, ADHD, predominantly inattentive type F90 .0 ; Primary insomnia F51.01 and Screening, lipid Z13.220 [place] [address] [address] Sep, ADHD, predominantly inattentive type F90 .0 [place] [address] [address] Aug, ADHD, predominantly inattentive type F90 .0 and Primary insomnia F51.01 [place] [address] [address] Jul, ADHD, predominantly inattentive type F90 .0 [place] [address] [address] Jul, Primary insomnia F51.01 and ADHD, predom inantly inattentive type F90.0 [place] [address] [address] Jun, ADHD, predominantly inattentive type F90 .0 [place] [address] [address] May, ADHD, predominantly inattentive type F90 .0 [place] [address] [address] Apr, ADHD, predominantly inattentive type F90 .0 [place] [address] [address] Mar, ADHD, predominantly inattentive type F90 .0 ; Primary insomnia F51.01 ; Major depressive disorder, recurrent episode, in full remission F33.42 and Acne comedone L70.0 [facility] [address] [address] Mar, Major depressive disorder, recurrent epi sode, in full remission F33.42 and ADHD, predominantly inattentive 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 [place] [address] [address] Feb, ADHD, predominantly inattentive type F90 .0 [place] [address] [address] Feb, Primary insomnia F51.01 [place] [address] [address] Jan, ADHD, predominantly inattentive type F90 .0 and Primary insomnia F51.01 [place] [address] [address] December, ADHD, predominantly inattentive type F90 .0 and Primary insomnia F51.01 [place] [address] [address] Oct, ADHD, predominantly inattentive type F90 .0 and Primary insomnia F51.01 [place] [address] [address] Sep, ADHD, predominantly inattentive type F90 .0 and Primary insomnia F51.01 [place] [address] [address] Aug, ADHD, predominantly inattentive type F90 .0 and Primary insomnia F51.01 [place] [address] [address] Jul, Major depressive disorder, recurrent epi sode, in full remission F33.42 ; ADHD, predominantly inattentive type F90.0 ; Primary insomnia F51.01 ; Acute non-recurrent maxillary sinusitis J01.00 and Screening, lipid Z13.220 [facility] [address] [facility] [id number] [address] [place] [address] Jun, Acute non-recurrent maxillar y sinusitis J01.00 [facility] [address] [address] Jun, ADHD, predominantly inattentive type F90 .0 [facility] [address] [address] May, [facility] [address] [address] Apr, [facility] [address] [facility] [id number] [address] [place] [address] Feb, Rash R21 and Scabies B86 [facility] [address] [address] Feb, ADHD, predominantly inattentive type F90 .0 and Major depressive disorder, recurrent episode, in full remission F33.42 [facility] [address] [address] Feb, [facility] [address] [address] Oct, [facility] [address] [address] Sep, [facility] [address] [address] Sep, [facility] [address] [address] Aug, [facility] [address] [address] Jul, [facility] [address] [address] Jun, [facility] [address] [address] May, [facility] [address] [address] May, ADHD, predominantly inattentive type F90 .0 and Major depressive disorder, recurrent episode, in full remission F33.42 [facility] [address] [address] Feb, Major depressive disorder, recurrent epi sode, moderate 296.[address] [facility] [address] [place] [id number] [place] [address] Feb, [facility] [address] [id number] [place] [address] Jan, [facility] [address] [place] [id number] [place] [address] Jan, [facility] [address] [place] [id number] [place] [address] December, [facility] [address] [id number] [place] [address] Nov, [facility] [address] [place] [id number] [place] [address] Nov, [facility] [address] [place] [id number] [place] [address] Oct, [facility] [address] [place] [id number] [place] [address] Oct, [facility] [address] [place] [id number] [place] [address] Sep, [facility] [address] [place] [id number] [place] [address] Sep, [facility] [address] [place] [id number] [place] [address] Sep, [facility] [address] [place] [id number] [place] [address] Sep, [facility] [address] [id number] [place] [address] Aug, [facility] [address] [place] [id number] [place] [address] Aug, [facility] [address] [place] [id number] [place] [address] Aug, [facility] [address] [place] [id number] [place] [address] Aug, [facility] [address] [id number] [place] [address] Aug, [facility] [address] [id number] [place] [address] Aug, [facility] [address] [id number] [place] [address] Jul, [facility] [address] [id number] [place] [address] Jul, [facility] [address] [id number] [place] [address] Jun, [facility] [address] [id number] [place] [address] Jun, [facility] [address] [id number] [place] [address] May, [facility] [address] [id number] [place] [address] May, [facility] [address] [id number] [place] [address] Apr, [facility] [address] [id number] [place] [address] Apr, [facility] [address] [id number] [place] [address] Apr, [facility] [address] [id number] [place] [address] Mar, [facility] [address] [id number] [place] [address] Mar, [facility] [address] [id number] [place] [address] Mar, [facility] [address] [id number] [place] [address] Mar, [facility] [address] [id number] [place] [address] Feb, [facility] [address] [id number] [place] [address] Feb, [facility] [address] [id number] [facility] [place] [address] Feb, [facility] [address] [facility] [facility] [id number] [facility] [place] [address] Feb, [facility] [address] [facility] [facility] [id number] [facility] [place] [address] Feb, [facility] [address] [facility] [facility] [id number] [facility] [place] [address] Feb, [facility] [address] [facility] [id number] [facility] [place] [address] Jan, [facility] [address] [id number] [place] [address] Jan, [facility] [address] [id number] [place] [address] Jan, [facility] [address] [id number] [place] [address] Jan, [facility] [address] [id number] [place] [address] December, [facility] [address] [id number] [facility] [place] [address] December, [facility] [address] [id number] [place] [address] December, [facility] [address] [id number] [place] [address] December, [facility] [address] [id number] [place] [address] December, [facility] [address] [id number] [place] [address] December, [facility] [address] [id number] [place] [address] December, [facility] [address] [id number] [place] [address] December, [facility] [address] [id number] [place] [address] December, [facility] [address] [facility] [facility] [id number] [facility] [place] [address] December, [facility] [address] [facility] [facility] [id number] [place] [address] Nov, [facility] [address] [id number] [place] [address] Nov, [facility] [address] [id number] [place] [address] Oct, [facility] [address] [facility] [facility] [id number] [place] [address] Oct, [facility] [address] [id number] [place] [address] Oct, [facility] [address] [id number] [place] [address] Oct, [facility] [address] [id number] [place] [address] Oct, [facility] [address] [id number] [place] [address] Oct, [facility] [address] [id number] [place] [address] Aug, [facility] [address] [id number] [place] [address] Aug, [facility] [address] [id number] [place] [address] Aug, [facility] [address] [facility] [id number] [place] [address] Aug, [facility] [address] [id number] [place] [address] Aug, [facility] [address] [id number] [place] [address] Aug, [facility] [address] [id number] [place] [address] Aug, [facility] [address] [id number] [place] [address] Aug, [facility] [address] [id number] [place] [address] Jul, [facility] [address] [id number] [place] [address] Jul, [facility] [address] [id number] [place] [address] Jun, [facility] [address] [id number] [place] [address] Jun, [facility] [address] [id number] [place] [address] Jun, [facility] [address] [id number] [place] [address] Jun, [facility] [address] [id number] [place] [address] Jun, [facility] [address] [id number] [place] [address] Jun, [facility] [address] [id number] [place] [address] May, [facility] [address] [id number] [place] [address] May, [facility] [address] [id number] [place] [address] Apr, [facility] [address] [id number] [place] [address] Apr, [facility] [address] [id number] [place] [address] Mar, [facility] [address] [id number] [place] [address] Mar, [facility] [address] [id number] [place] [address] Mar, [facility] [address] [id number] [place] [address] Feb, [facility] [address] [id number] [place] [address] Jan, [facility] [address] [id number] [place] [address] December, [facility] [address] [id number] [place] [address] December, [facility] [address] [id number] [facility] [place] [address] December, [facility] [address] [id number] [place] [address] December, [facility] [address] [id number] [place] [address] December, [facility] [address] [id number] [place] [address] December, [facility] [address] [id number] [place] [address] Nov, [facility] [address] [id number] [place] [address] Nov, [facility] [address] [id number] [place] [address] Nov, [facility] [address] [id number] [place] [address] Oct, [facility] [address] [id number] [place] [address] 14 Jun, 2012 [facility] [address] [id number] [place] [address] 14 Jun, 2012 [facility] [address] [id number] [place] [address] Jun, [facility] [address] [id number] [place] [address] Jun, [facility] [address] [id number] [place] [address] 18 Apr, 2012 [facility] [address] [id number] [place] [address] Mar, [facility] [address] [id number] [place] [address] Mar, [facility] [address] [id number] [place] [address] Jan, [facility] [address] [id number] [place] [address] December, [facility] [id number] [place] [address] Nov, [facility] [id number] [place] [address] Nov, [facility] [id number] [place] [address] Nov, [facility] [id number] [place] [address] Nov, [facility] [id number] [place] [address] Aug, [facility] [id number] [place] [address] Aug, [facility] [id number] [place] [address] Jul, [facility] [address] [id number] [place] [address] Jun, [facility] [id number] [place] [address] Jun, [facility] [address] [id number] [place] [address] Apr, [facility] [id number] [place] [address] Feb, IMMUNIZATIONS No Known Immunizations SOCIAL HISTORY [...]
--- OUTSIDE RECORDS SUMMARY | 2020-02-11 01:27 | XMS REPORT ---
Author Author Elaine GALARZA Organization [facility] Address [address] [place] [address] Care Team Providers Care Kitchen Porter Name Role Phone MARI GALARZA Unavailable PROBLEMS Type Condition ICD9-CM Code GLL02-TL Code Onset Dates Condition S tatus SNOMED Code Problem ADHD, predominantly inattentive type F90.0 Active 96757560 Problem Primary insomnia F51.01 Active 397 2004 Problem Essential hypertension I10 Active 73814693 Problem Non-seasonal allergic rhinitis due to pollen J30.1 Active 37257362 Problem Major depressive disorder, recurrent episode, in full remission F33.42 Active 398006375 Problem Severe episode of recurrent major depressive disorder, without psychotic features F33.2 Active 90797245 Problem Seasonal allergies J30.2 Active 4 29455054 Problem Moderate episode of recurrent major depressive disorder F33.1 Active 868961165 Problem Intractable migraine without aura and with status migr ainosus G43.011 Active 120263889 Problem Migraine without aura and without status migrain osus, not intractable G43.009 Active [id number] ALLERGIES No Information ENCOUNTERS Encounter Location Date Diagnosis [place] [address] [address] Sep, [facility] [address] [address] Sep, [place] [address] [address] Sep, ADHD, predominantly inattentive type F90 .0 [place] [address] [address] Aug, ADHD, predominantly inattentive type F90 .0 [place] [address] [address] Jul, ADHD, predominantly inattentive type F90 .0 [facility] [address] [address] Jun, ADHD, predominantly inattentive type F90 .0 ; Moderate episode of recurrent major depressive disorder F33.1 and Intractable migraine without aura and with status migrainosus G43.011 [facility] [address] [address] May, Severe episode of recurrent major depres sive disorder, without psychotic features F33.2 [facility] [address] [address] May, [facility] [address] [address] Apr, [facility] [address] [address] Mar, Moderate episode of recurrent major depr essive disorder F33.1 [facility] [address] [address] Mar, [facility] [address] [address] Feb, [facility] [address] [address] Feb, [facility] [address] [address] Jan, Major depressive disorder, recurrent epi sode, in full remission F33.42 [facility] [address] [address] Jan, Moderate episode of recurrent major depr essive disorder F33.1 ; Non- seasonal allergic rhinitis due to pollen J30.1 ; Migraine without aura and without status migrainosus, not intractable G43.009 and Sinus congestion R09.81 [facility] [address] [address] Jan, [facility] [address] [address] December, Moderate episode of recurrent major depr essive disorder F33.1 [place] [address] [address] December, [facility] [address] [address] December, Moderate episode of recurrent major depr essive disorder F33.1 [place] [address] [address] Nov, Moderate episode of recurrent major depr essive disorder F33.1 and Intractable migraine without aura and with status migrainosus G43.011 [place] [address] [address] Nov, [place] [address] [address] Oct, Major depressive disorder, recurrent epi sode, in full remission F33.42 ; Intractable migraine without aura and with status migrainosus G43.011 ; Weight gain R63.5 ; Vision changes H53.9 and Other fdc (current) drug therapy Z79.899 [place] [address] [address] Oct, Encounter for pre-employment examination Z02.1 [place] [address] [address] Oct, [facility] [address] [facility] [facility] [id number] [address] [address] Sep, Acute non-recurrent maxillar y sinusitis J01.00 [place] [address] [address] Sep, [place] [address] [address] Aug, [place] [address] [address] Jul, ADHD, predominantly inattentive type F90 .0 and Primary insomnia F51.01 [place] [address] [address] Jun, ADHD, predominantly inattentive type F90 .0 [place] [address] [address] May, ADHD, predominantly inattentive type F90 .0 ; Moderate episode of recurrent major depressive disorder F33.1 and Therapeutic drug monitoring Z51.81 [place] [address] [address] May, [place] [address] [address] Apr, ADHD, predominantly inattentive type F90 .0 [place] [address] [address] Apr, ADHD, predominantly inattentive type F90 .0 and Major depressive disorder, recurrent episode, in full remission F33.42 [place] [address] [address] Mar, ADHD, predominantly inattentive type F90 .0 and Primary insomnia F51.01 [place] [address] [address] Mar, [place] [address] [address] Mar, ADHD, predominantly inattentive type F90 .0 and Primary insomnia F51.01 [place] [address] [address] Feb, ADHD, predominantly inattentive type F90 .0 and Primary insomnia F51.01 [place] [address] [address] Jan, ADHD, predominantly inattentive type F90 .0 and Primary insomnia F51.01 [facility] [address] [facility] [facility] [id number] [address] [place] [address] December, Seasonal allergies J30.2 and Post-nasal drip R09.82 [place] [address] [address] December, ADHD, predominantly inattentive type F90 .0 and Primary insomnia F51.01 [facility] [address] [address] Nov, ADHD, predominantly inattentive type F90 .0 [facility] [address] [address] Oct, ADHD, predominantly inattentive type F90 .0 [facility] [address] [address] Oct, ADHD, predominantly inattentive type F90 .0 ; Primary insomnia F51.01 and Screening, lipid Z13.220 [facility] [address] [address] Sep, ADHD, predominantly inattentive type F90 .0 [facility] [address] [address] Aug, ADHD, predominantly inattentive type F90 .0 and Primary insomnia F51.01 [facility] [address] [address] Jul, ADHD, predominantly inattentive type F90 .0 [facility] [address] [address] Jul, Primary insomnia F51.01 and ADHD, predom inantly inattentive type F90.0 [facility] [address] [address] Jun, ADHD, predominantly inattentive type F90 .0 [facility] [address] [address] May, ADHD, predominantly inattentive type F90 .0 [facility] [address] [address] Apr, ADHD, predominantly inattentive type F90 .0 [facility] [address] [address] Mar, ADHD, predominantly inattentive type F90 .0 ; Primary insomnia F51.01 ; Major depressive disorder, recurrent episode, in full remission F33.42 and Acne comedone L70.0 [place] [address] [place] [id number] Mar, Major depressive disorder, recurrent epi sode, in full remission F33.42 and ADHD, predominantly inattentive type F90.0 [place] [address] [address] Feb, ADHD, predominantly inattentive type F90 .0 [place] [address] [address] Feb, Primary insomnia F51.[address] [address] Jan, ADHD, predominantly inattentive type F90 .0 and Primary insomnia F51.01 [place] [address] [address] December, ADHD, predominantly inattentive type F90 .0 and Primary insomnia F51.01 [place] [address] [address] Oct, ADHD, predominantly inattentive type F90 .0 and Primary insomnia F51.[address] [address] Sep, ADHD, predominantly inattentive type F90 .0 and Primary insomnia F51.01 [place] [address] [address] Aug, ADHD, predominantly inattentive type F90 .0 and Primary insomnia F51.[address] [address] Jul, Major depressive disorder, recurrent epi sode, in full remission F33.42 ; ADHD, predominantly inattentive type F90.0 ; Primary insomnia F51.01 ; Acute non-recurrent maxillary sinusitis J01.00 and Screening, lipid Z13.220 [facility] [address] [place] [id number] [address] [address] Jun, Acute non-recurrent maxillar y sinusitis J01.00 [facility] [address] [address] Jun, ADHD, predominantly inattentive type F90 .0 [facility] [address] [address] May, [facility] [address] [address] Apr, [facility] [address] [facility] [id number] [address] [address] Feb, Rash R21 and Scabies B86 [facility] [address] [address] Feb, ADHD, predominantly inattentive type F90 .0 and Major depressive disorder, recurrent episode, in full remission F33.42 [facility] [address] [address] Feb, [facility] [address] [address] Oct, [facility] [address] [address] Sep, [facility] [address] [address] Sep, [facility] [address] [address] Aug, [facility] [address] [address] Jul, [facility] [address] [address] Jun, [facility] [address] [address] May, [facility] [address] [address] May, ADHD, predominantly inattentive type F90 .0 and Major depressive disorder, recurrent episode, in full remission F33.42 [facility] [address] [place] [id number] [place] [address] Feb, Major depressive disorder, recurrent epi sode, moderate 296.32 [facility] [address] [place] [id number] [place] [address] Feb, [facility] [address] [place] [id number] [place] [address] Jan, [facility] [address] [place] [id number] [place] [address] Jan, [facility] [address] [place] [id number] [place] [address] December, [facility] [address] [place] [id number] [place] [address] Nov, [facility] [address] [place] [id number] [place] [address] Nov, [facility] [address] [place] [id number] [place] [address] Oct, [facility] [address] [place] [id number] [place] [address] Oct, [facility] [address] [place] [id number] [place] [address] Sep, [facility] [address] [place] [id number] [place] [address] Sep, [facility] [address] [place] [id number] [place] [address] Sep, [facility] [address] [place] [id number] [place] [address] Sep, [facility] [address] [place] [id number] [place] [address] Aug, [facility] [address] [place] [id number] [place] [address] Aug, [facility] [place] [facility] [address] [id number] [place] [address] Aug, [facility] [place] [facility] [address] [id number] [place] [address] Aug, [facility] [place] [facility] [address] [id number] [place] [address] Aug, [facility] [place] [facility] [address] [id number] [place] [address] Aug, [facility] [place] [facility] [address] [id number] [place] [address] Jul, [facility] [place] [facility] [address] [id number] [place] [address] Jul, [facility] [place] [facility] [address] [id number] [place] [address] Jun, [facility] [place] [facility] [address] [id number] [place] [address] Jun, [facility] [place] [facility] [address] [id number] [place] [address] May, [facility] [place] [facility] [address] [id number] [place] [address] May, [facility] [place] [facility] [address] [id number] [place] [address] Apr, [facility] [place] [facility] [address] [id number] [place] [address] Apr, [facility] [place] [facility] [address] [id number] [place] [address] Apr, [facility] [place] [facility] [address] [id number] [place] [address] Mar, [facility] [place] [facility] [address] [id number] [place] [address] Mar, [facility] [place] [facility] [address] [id number] [place] [address] Mar, [facility] [place] [facility] [address] [id number] [place] [address] Mar, [facility] [place] [facility] [address] [facility] [address] [facility] [id number] [place] [address] Feb, [facility] [place] [facility] [address] [facility] [address] [facility] [id number] [facility] [place] [facility] [place] [address] Feb, [facility] [place] [facility] [address] [id number] [place] [address] Feb, [facility] [place] [facility] [address] [id number] [place] [address] Feb, [facility] [place] [facility] [address] [facility] [address] [facility] [id number] [place] [address] Feb, [facility] [place] [facility] [address] [id number] [place] [address] Feb, [facility] [place] [facility] [address] [id number] [place] [address] Jan, [facility] [place] [facility] [address] [id number] [place] [address] Jan, [facility] [place] [facility] [address] [id number] [place] [address] Jan, [facility] [place] [facility] [address] [id number] [place] [address] Jan, [facility] [place] [facility] [address] [id number] [place] [address] December, [facility] [place] [facility] [address] [id number] [place] [address] December, [facility] [place] [facility] [address] [id number] [place] [address] December, [facility] [place] [facility] [address] [id number] [place] [address] December, [facility] [place] [facility] [address] [id number] [place] [address] December, [facility] [place] [facility] [address] [id number] [place] [address] December, [facility] [place] [facility] [address] [id number] [place] [address] December, [facility] [place] [facility] [address] [facility] [facility] [id number] [place] [address] December, [facility] [place] [facility] [address] [id number] [place] [address] December, [facility] [place] [facility] [address] [id number] [place] [address] December, [facility] [place] [facility] [address] [id number] [place] [address] Nov, [facility] [place] [facility] [address] [facility] [address] [facility] [id number] [place] [address] Nov, [facility] [place] [facility] [address] [id number] [place] [address] Oct, [facility] [place] [facility] [address] [id number] [place] [address] Oct, [facility] [place] [facility] [address] [id number] [place] [address] Oct, [facility] [place] [facility] [address] [id number] [place] [address] Oct, [facility] [place] [facility] [address] [id number] [place] [address] Oct, [facility] [place] [facility] [address] [id number] [place] [address] Oct, [facility] [place] [facility] [address] [id number] [place] [address] Aug, [facility] [place] [facility] [address] [id number] [place] [address] Aug, [facility] [place] [facility] [address] [id number] [place] [address] Aug, [facility] [place] [facility] [address] [id number] [place] [address] Aug, [facility] [place] [facility] [address] [id number] [place] [address] Aug, [facility] [place] [facility] [address] [id number] [place] [address] Aug, [facility] [place] [facility] [address] [id number] [place] [address] Aug, [facility] [place] [facility] [address] [id number] [place] [address] Aug, [facility] [place] [facility] [address] [id number] [place] [address] Jul, [facility] [place] [facility] [address] [id number] [place] [address] Jul, [facility] [place] [facility] [address] [id number] [place] [address] Jun, [facility] [place] [facility] [address] [id number] [place] [address] Jun, [facility] [place] [facility] [address] [place] [id number] [place] [address] Jun, [facility] [place] [facility] [address] [id number] [place] [address] Jun, [facility] [place] [facility] [address] [id number] [place] [address] Jun, [facility] [place] [facility] [address] [id number] [place] [address] Jun, [facility] [place] [facility] [address] [id number] [place] [address] May, [facility] [place] [facility] [address] [id number] [place] [address] May, [facility] [place] [facility] [address] [id number] [place] [address] 16 Apr, 2013 [facility] [place] [facility] [address] [id number] [place] [address] Apr, [facility] [place] [facility] [address] [id number] [place] [address] Mar, [facility] [place] [facility] [address] [id number] [place] [address] Mar, [facility] [address] [id number] [place] [address] Mar, [facility] [place] [facility] [address] [id number] [place] [address] Feb, [facility] [place] [facility] [address] [id number] [place] [address] Jan, [facility] [place] [facility] [address] [id number] [place] [address] December, [facility] [place] [facility] [address] [facility] [address] [facility] [id number] [place] [address] December, [facility] [place] [facility] [address] [id number] [place] [address] December, [facility] [place] [facility] [address] [id number] [place] [address] December, [facility] [place] [facility] [address] [id number] [place] [address] December, [facility] [place] [facility] [address] [id number] [place] [address] December, [facility] [place] [facility] [address] [id number] [place] [address] 18 Nov, 2012 [facility] [place] [facility] [address] [id number] [place] [address] Nov, [facility] [place] [facility] [address] [id number] [place] [address] 08 Nov, 2012 [facility] [place] [facility] [address] [id number] [place] [address] Oct, [facility] [place] [facility] [address] [id number] [place] [address] Jun, [facility] [place] [facility] [address] [id number] [place] [address] Jun, [facility] [place] [facility] [address] [id number] [place] [address] Jun, [facility] [place] [facility] [address] [id number] [place] [address] Jun, [facility] [address] [id number] [place] [address] Apr, [facility] [address] [id number] [place] [address] Mar, [facility] [address] [place] [id number] [place] [address] Mar, [facility] [address] [place] [id number] [place] [address] Jan, [facility] [address] [id number] [place] [address] December, [facility] [address] [place] [id number] [place] [address] Nov, [facility] [address] [id number] [place] [address] Nov, [facility] [id number] [place] [address] Nov, [facility] [address] [id number] [place] [address] Nov, [facility] [id number] [place] [address] Aug, [facility] [id number] [place] [address] Aug, [facility] [id number] [place] [address] Jul, [facility] [address] [id number] [place] [address] Jun, [facility] [id number] [place] [address] Jun, [facility] [id number] [place] [address] 14 Apr, 2011 [facility] [address] [place] [id number] [place] [address] Feb, IMMUNIZATIONS No Known Immunizations SOCIAL HISTORY [...]
--- OUTSIDE RECORDS SUMMARY | 2020-02-11 01:27 | XMS REPORT ---
Author Author Elaine GALARZA Organization [facility] Address [address] [place] [address] Care Team Providers Care Caterer Helper Name Role Phone MARI GALARZA Unavailable PROBLEMS Type Condition ICD9-CM Code [id number] Code Onset Dates Condition S tatus SNOMED Code Problem ADHD, predominantly inattentive type F90.0 Active 73420187 Problem Primary insomnia F51.01 Active 397 2004 Problem Essential hypertension I10 Active 29966921 Problem Non-seasonal allergic rhinitis due to pollen J30.1 Active 36773421 Problem Major depressive disorder, recurrent episode, in full remission F33.42 Active 770640961 Problem Severe episode of recurrent major depressive disorder, without psychotic features F33.2 Active 51580472 Problem Seasonal allergies J30.2 Active 4 36175487 Problem Moderate episode of recurrent major depressive disorder F33.1 Active 919680128 Problem Intractable migraine without aura and with status migr ainosus G43.011 Active 658260247 Problem Migraine without aura and without status migrain osus, not intractable G43.009 Active 292961153 ALLERGIES No Information ENCOUNTERS Encounter Location Date Diagnosis [place] [address] [address] Sep, [facility] [address] [address] Sep, ADHD, predominantly inattentive type F90 .0 [place] [address] [address] Aug, ADHD, predominantly inattentive type F90 .0 [place] [address] [address] Jul, ADHD, predominantly inattentive type F90 .0 [place] [address] [address] Jun, ADHD, predominantly inattentive type F90 .0 ; Moderate episode of recurrent major depressive disorder F33.1 and Intractable migraine without aura and with status migrainosus G43.011 [facility] [address] [place] [id number] May, Severe episode of recurrent major depres sive disorder, without psychotic features F33.2 [facility] [address] [address] May, [facility] [address] [address] Apr, [facility] [address] [address] Mar, Moderate episode of recurrent major depr essive disorder F33.1 [facility] [address] [address] Mar, [facility] [address] [address] Feb, [facility] [address] [address] Feb, [facility] [address] [address] Jan, Major depressive disorder, recurrent epi sode, in full remission F33.42 [facility] [address] [address] Jan, Moderate episode of recurrent major depr essive disorder F33.1 ; Non- seasonal allergic rhinitis due to pollen J30.1 ; Migraine without aura and without status migrainosus, not intractable G43.009 and Sinus congestion R09.81 [facility] [address] [address] Jan, [facility] [address] [address] December, Moderate episode of recurrent major depr essive disorder F33.1 [facility] [address] [address] December, [facility] [address] [address] December, Moderate episode of recurrent major depr essive disorder F33.1 [facility] [address] [address] Nov, Moderate episode of recurrent major depr essive disorder F33.1 and Intractable migraine without aura and with status migrainosus G43.011 [place] [address] [address] Nov, [place] [address] [address] Oct, Major depressive disorder, recurrent epi sode, in full remission F33.42 ; Intractable migraine without aura and with status migrainosus G43.011 ; Weight gain R63.5 ; Vision changes H53.9 and 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 [place] [address] [address] 15 Oct, 2018 Encounter for pre-employment examination Z02.1 [place] [address] [address] 15 Oct, 2018 [facility] [address] [facility] [id number] [address] [place] [address] 20 Sep, 2018 Acute non-recurrent maxillar y sinusitis J01.00 [place] [address] [address] 14 Sep, 2018 [place] [address] [address] Aug, [place] [address] [address] Jul, ADHD, predominantly inattentive type F90 .0 and Primary insomnia F51.01 [place] [address] [address] Jun, ADHD, predominantly inattentive type F90 .0 [place] [address] [address] May, ADHD, predominantly inattentive type F90 .0 ; Moderate episode of recurrent major depressive disorder F33.1 and Therapeutic drug monitoring Z51.81 [place] [address] [address] May, [place] [address] [address] Apr, ADHD, predominantly inattentive type F90 .0 [place] [address] [address] Apr, ADHD, predominantly inattentive type F90 .0 and Major depressive disorder, recurrent episode, in full remission F33.42 [place] [address] [address] Mar, ADHD, predominantly inattentive type F90 .0 and Primary insomnia F51.01 [place] [address] [address] Mar, [place] [address] [address] Mar, ADHD, predominantly inattentive type F90 .0 and Primary insomnia F51.01 [place] [address] [address] Feb, ADHD, predominantly inattentive type F90 .0 and Primary insomnia F51.01 [place] [address] [address] Jan, ADHD, predominantly inattentive type F90 .0 and Primary insomnia F51.01 [facility] [address] [facility] [id number] [address] [place] [address] December, Seasonal allergies J30.2 and Post-nasal drip R09.82 [facility] [address] [place] [id number] [place] [address] December, ADHD, predominantly inattentive type F90 .0 and Primary insomnia F51.01 [facility] [address] [address] Nov, ADHD, predominantly inattentive type F90 .0 [facility] [address] [address] Oct, ADHD, predominantly inattentive type F90 .0 [facility] [address] [address] Oct, ADHD, predominantly inattentive type F90 .0 ; Primary insomnia F51.01 and Screening, lipid Z13.220 [facility] [address] [address] Sep, ADHD, predominantly inattentive type F90 .0 [facility] [address] [address] Aug, ADHD, predominantly inattentive type F90 .0 and Primary insomnia F51.01 [facility] [address] [address] Jul, ADHD, predominantly inattentive type F90 .0 [facility] [address] [address] Jul, Primary insomnia F51.01 and ADHD, predom inantly inattentive type F90.0 [facility] [address] [address] Jun, ADHD, predominantly inattentive type F90 .0 [facility] [address] [address] May, ADHD, predominantly inattentive type F90 .0 [facility] [address] [address] Apr, ADHD, predominantly inattentive type F90 .0 [facility] [address] [address] Mar, ADHD, predominantly inattentive type F90 .0 ; Primary insomnia F51.01 ; Major depressive disorder, recurrent episode, in full remission F33.42 and Acne comedone L70.0 [place] [address] [address] Mar, Major depressive disorder, recurrent epi sode, in full remission F33.42 and ADHD, predominantly inattentive type F90.0 [place] [address] [address] Feb, ADHD, predominantly inattentive type F90 .0 [place] [address] [address] Feb, Primary insomnia F51.01 [place] [address] [address] Jan, ADHD, predominantly inattentive type F90 .0 and Primary insomnia F51.01 [place] [address] [address] December, ADHD, predominantly inattentive type F90 .0 and Primary insomnia F51.01 [place] [address] [address] Oct, ADHD, predominantly inattentive type F90 .0 and Primary insomnia F51.01 [place] [address] [address] Sep, ADHD, predominantly inattentive type F90 .0 and Primary insomnia F51.01 [place] [address] [address] Aug, ADHD, predominantly inattentive type F90 .0 and Primary insomnia F51.01 [place] [address] [address] Jul, Major depressive disorder, recurrent epi sode, in full remission F33.42 ; ADHD, predominantly inattentive type F90.0 ; Primary insomnia F51.01 ; Acute non-recurrent maxillary sinusitis J01.00 and Screening, lipid Z13.220 [facility] [address] [facility] [id number] [address] [place] [address] Jun, Acute non-recurrent maxillar y sinusitis J01.00 [facility] [address] [id number] [place] [address] Jun, ADHD, predominantly inattentive type F90 .0 [facility] [address] [place] [id number] [place] [address] May, [facility] [address] [id number] [place] [address] Apr, [facility] [address] [facility] [id number] [address] [address] Feb, Rash R21 and Scabies B86 [facility] [address] [address] Feb, ADHD, predominantly inattentive type F90 .0 and Major depressive disorder, recurrent episode, in full remission F33.42 [facility] [address] [address] Feb, [facility] [address] [address] Oct, [facility] [address] [address] Sep, [facility] [address] [address] Sep, [facility] [address] [place] [id number] [place] [address] Aug, [facility] [address] [address] Jul, [facility] [address] [place] [id number] [place] [address] Jun, [facility] [address] [address] May, [facility] [address] [address] May, ADHD, predominantly inattentive type F90 .0 and Major depressive disorder, recurrent episode, in full remission F33.42 [facility] [address] [id number] [place] [address] Feb, Major depressive disorder, recurrent epi sode, moderate 296.32 [facility] [address] [place] [id number] [place] [address] Feb, [facility] [address] [place] [id number] [place] [address] Jan, [facility] [address] [place] [id number] [place] [address] Jan, [facility] [address] [place] [id number] [place] [address] December, [facility] [address] [place] [id number] [place] [address] Nov, [facility] [address] [place] [id number] [place] [address] Nov, [facility] [address] [place] [id number] [place] [address] Oct, [facility] [address] [place] [id number] [place] [address] Oct, [facility] [address] [place] [id number] [place] [address] Sep, [facility] [address] [place] [id number] [place] [address] Sep, [facility] [address] [place] [id number] [place] [address] Sep, [facility] [address] [place] [id number] [place] [address] Sep, [facility] [address] [place] [id number] [place] [address] Aug, [facility] [address] [place] [id number] [place] [address] Aug, [facility] [address] [place] [id number] [place] [address] Aug, [facility] [address] [id number] [place] [address] Aug, [facility] [address] [id number] [place] [address] Aug, [facility] [address] [id number] [place] [address] Aug, [facility] [address] [id number] [place] [address] Jul, [facility] [address] [id number] [place] [address] Jul, [facility] [address] [id number] [place] [address] Jun, [facility] [address] [id number] [place] [address] Jun, [facility] [address] [id number] [place] [address] May, [facility] [address] [id number] [place] [address] May, [facility] [address] [id number] [place] [address] Apr, [facility] [address] [id number] [place] [address] Apr, [facility] [address] [id number] [place] [address] Apr, [facility] [address] [id number] [place] [address] Mar, [facility] [address] [id number] [place] [address] Mar, [facility] [address] [id number] [place] [address] Mar, [facility] [address] [id number] [place] [address] Mar, [facility] [address] [id number] [place] [address] Feb, [facility] [address] [facility] [id number] [facility] [place] [address] Feb, [facility] [address] [facility] [id number] [facility] [place] [address] Feb, [facility] [address] [facility] [id number] [place] [address] Feb, [facility] [address] [facility] [id number] [facility] [place] [address] Feb, [facility] [address] [facility] [id number] [place] [address] Feb, [facility] [address] [id number] [place] [address] Jan, [facility] [address] [id number] [place] [address] Jan, [facility] [address] [id number] [place] [address] Jan, [facility] [address] [facility] [id number] [place] [address] Jan, [facility] [address] [id number] [place] [address] December, [facility] [address] [id number] [place] [address] December, [facility] [address] [id number] [place] [address] December, [facility] [address] [facility] [id number] [place] [address] December, [facility] [address] [facility] [id number] [place] [address] December, [facility] [address] [id number] [place] [address] December, [facility] [address] [id number] [place] [address] December, [facility] [address] [id number] [facility] [place] [address] December, [facility] [address] [facility] [id number] [place] [address] December, [facility] [address] [facility] [id number] [place] [address] December, [facility] [address] [id number] [place] [address] Nov, [facility] [address] [facility] [id number] [place] [address] Nov, [facility] [address] [id number] [place] [address] Oct, [facility] [address] [id number] [place] [address] Oct, [facility] [address] [id number] [place] [address] Oct, [facility] [address] [id number] [place] [address] Oct, [facility] [address] [id number] [place] [address] Oct, [facility] [address] [id number] [place] [address] Oct, [facility] [address] [id number] [place] [address] Aug, [facility] [address] [id number] [place] [address] Aug, [facility] [address] [id number] [place] [address] Aug, [facility] [address] [id number] [place] [address] Aug, [facility] [address] [id number] [place] [address] Aug, [facility] [address] [id number] [place] [address] Aug, [facility] [address] [id number] [place] [address] Aug, [facility] [address] [id number] [place] [address] Aug, [facility] [address] [id number] [place] [address] Jul, [facility] [address] [id number] [place] [address] Jul, [facility] [address] [id number] [place] [address] Jun, [facility] [address] [id number] [place] [address] Jun, [facility] [address] [id number] [place] [address] Jun, [facility] [address] [id number] [place] [address] Jun, [facility] [address] [id number] [place] [address] Jun, [facility] [address] [id number] [place] [address] Jun, [facility] [address] [id number] [place] [address] May, [facility] [address] [id number] [place] [address] May, [facility] [address] [id number] [place] [address] 16 Apr, 2013 [facility] [address] [id number] [place] [address] Apr, [facility] [address] [id number] [place] [address] Mar, [facility] [address] [id number] [place] [address] Mar, [facility] [address] [id number] [place] [address] Mar, [facility] [address] [facility] [id number] [place] [address] Feb, [facility] [address] [id number] [place] [address] Jan, [facility] [address] [id number] [place] [address] December, [facility] [address] [id number] [place] [address] December, [facility] [address] [facility] [id number] [place] [address] December, [facility] [address] [id number] [place] [address] December, [facility] [address] [id number] [place] [address] December, [facility] [address] [id number] [place] [address] December, [facility] [address] [id number] [place] [address] Nov, [facility] [address] [id number] [place] [address] Nov, [facility] [address] [id number] [place] [address] Nov, [facility] [address] [id number] [place] [address] 05 Oct, 2012 [facility] [address] [id number] [place] [address] Jun, [facility] [address] [id number] [place] [address] Jun, [facility] [address] [id number] [place] [address] Jun, [facility] [address] [id number] [place] [address] Jun, [facility] [id number] [place] [address] Apr, [facility] [id number] [place] [address] Mar, [facility] [id number] [place] [address] Mar, [facility] [id number] [place] [address] Jan, [facility] [id number] [place] [address] December, [facility] [id number] [place] [address] Nov, [facility] [address] [address] Nov, [facility] [address] [address] Nov, [facility] [address] [address] Nov, [facility] [id number] [place] [address] Aug, [facility] [address] [address] Aug, [facility] [id number] [place] [address] Jul, [facility] [id number] [place] [address] Jun, [facility] [id number] [place] [address] Jun, [facility] [address] [address] Apr, [facility] [id number] [place] [address] Feb, IMMUNIZATIONS No Known Immunizations SOCIAL HISTORY [...]
--- OUTSIDE RECORDS SUMMARY | 2020-02-11 01:28 | XMS REPORT ---
Author Author Elaine GALARZA Organization [facility] Address [address] [place] [address] Care Team Providers Care Bilingual Inside Sales Representative Name Role Phone MARI GALARZA Unavailable PROBLEMS Type Condition ICD9-CM Code SVN98-PA Code Onset Dates Condition S tatus SNOMED Code Problem ADHD, predominantly inattentive type F90.0 Active 82068228 Problem Primary insomnia F51.01 Active 397 2004 Problem Essential hypertension I10 Active 51920337 Problem Non-seasonal allergic rhinitis due to pollen J30.1 Active 97217957 Problem Major depressive disorder, recurrent episode, in full remission F33.42 Active 222119164 Problem Severe episode of recurrent major depressive disorder, without psychotic features F33.2 Active 71797292 Problem Seasonal allergies J30.2 Active 4 20921325 Problem Moderate episode of recurrent major depressive disorder F33.1 Active 101745063 Problem Intractable migraine without aura and with status migr ainosus G43.011 Active 872014587 Problem Migraine without aura and without status migrain osus, not intractable G43.009 Active [id number] ALLERGIES No Information ENCOUNTERS Encounter Location Date Diagnosis [place] [address] [address] Aug, ADHD, predominantly inattentive type F90 .0 [place] [id number] [address] Jul, ADHD, predominantly inattentive type F90 .0 [place] [address] [address] Jun, ADHD, predominantly inattentive type F90 .0 ; Moderate episode of recurrent major depressive disorder F33.1 and Intractable migraine without aura and with status migrainosus G43.011 [place] [address] [address] May, Severe episode of recurrent major depres sive disorder, without psychotic features F33.2 [facility] [address] [place] [id number] [place] [address] May, [facility] [address] [address] Apr, [facility] [address] [address] Mar, Moderate episode of recurrent major depr essive disorder F33.1 [facility] [address] [address] Mar, [facility] [address] [address] Feb, [facility] [address] [address] Feb, [facility] [address] [address] Jan, Major depressive disorder, recurrent epi sode, in full remission F33.42 [facility] [address] [address] Jan, Moderate episode of recurrent major depr essive disorder F33.1 ; Non- seasonal allergic rhinitis due to pollen J30.1 ; Migraine without aura and without status migrainosus, not intractable G43.009 and Sinus congestion R09.81 [facility] [address] [address] Jan, [facility] [address] [address] December, Moderate episode of recurrent major depr essive disorder F33.1 [facility] [address] [address] December, [facility] [address] [address] December, Moderate episode of recurrent major depr essive disorder F33.1 [facility] [address] [address] Nov, Moderate episode of recurrent major depr essive disorder F33.1 and Intractable migraine without aura and with status migrainosus G43.011 [facility] [address] [address] Nov, [facility] [address] [address] Oct, Major depressive disorder, recurrent epi sode, in full remission F33.42 ; Intractable migraine without aura and with status migrainosus G43.011 ; Weight gain R63.5 ; Vision changes H53.9 and 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 [place] [address] [address] Oct, Encounter for pre-employment examination Z02.1 [place] [address] [address] Oct, [facility] [address] [facility] [id number] [address] [address] 20 Sep, 2018 Acute non-recurrent maxillar y sinusitis J01.00 [place] [address] [address] 14 Sep, 2018 [facility] [address] [address] Aug, [place] [address] [address] Jul, ADHD, predominantly inattentive type F90 .0 and Primary insomnia F51.01 [place] [address] [address] Jun, ADHD, predominantly inattentive type F90 .0 [place] [address] [address] May, ADHD, predominantly inattentive type F90 .0 ; Moderate episode of recurrent major depressive disorder F33.1 and Therapeutic drug monitoring Z51.81 [place] [address] [address] May, [place] [address] [address] Apr, ADHD, predominantly inattentive type F90 .0 [place] [address] [address] Apr, ADHD, predominantly inattentive type F90 .0 and Major depressive disorder, recurrent episode, in full remission F33.42 [place] [address] [address] Mar, ADHD, predominantly inattentive type F90 .0 and Primary insomnia F51.01 [place] [address] [address] Mar, [place] [address] [address] Mar, ADHD, predominantly inattentive type F90 .0 and Primary insomnia F51.01 [place] [address] [address] Feb, ADHD, predominantly inattentive type F90 .0 and Primary insomnia F51.01 [place] [address] [address] Jan, ADHD, predominantly inattentive type F90 .0 and Primary insomnia F51.01 [facility] [address] [facility] [id number] [address] [place] [address] December, Seasonal allergies J30.2 and Post-nasal drip R09.82 [place] [address] [address] December, ADHD, predominantly inattentive type F90 .0 and Primary insomnia F51.01 [place] [address] [address] Nov, ADHD, predominantly inattentive type F90 .0 [place] [address] [address] Oct, ADHD, predominantly inattentive type F90 .0 [facility] [address] [address] Oct, ADHD, predominantly inattentive type F90 .0 ; Primary insomnia F51.01 and Screening, lipid Z13.220 [facility] [address] [address] Sep, ADHD, predominantly inattentive type F90 .0 [facility] [address] [address] Aug, ADHD, predominantly inattentive type F90 .0 and Primary insomnia F51.01 [facility] [address] [address] Jul, ADHD, predominantly inattentive type F90 .0 [facility] [address] [address] Jul, Primary insomnia F51.01 and ADHD, predom inantly inattentive type F90.0 [facility] [address] [address] Jun, ADHD, predominantly inattentive type F90 .0 [facility] [address] [address] May, ADHD, predominantly inattentive type F90 .0 [facility] [address] [address] Apr, ADHD, predominantly inattentive type F90 .0 [facility] [address] [address] Mar, ADHD, predominantly inattentive type F90 .0 ; Primary insomnia F51.01 ; Major depressive disorder, recurrent episode, in full remission F33.42 and Acne comedone L70.0 [facility] [address] [address] Mar, Major depressive disorder, recurrent epi sode, in full remission F33.42 and ADHD, predominantly inattentive type F90.0 [facility] [address] [address] Feb, ADHD, predominantly inattentive type F90 .0 [place] [address] [address] Feb, Primary insomnia F51.01 [facility] [address] [address] Jan, ADHD, predominantly inattentive type F90 .0 and Primary insomnia F51.01 [place] [address] [address] December, ADHD, predominantly inattentive type F90 .0 and Primary insomnia F51.01 [place] [address] [address] Oct, ADHD, predominantly inattentive type F90 .0 and Primary insomnia F51.01 [place] [address] [address] Sep, ADHD, predominantly inattentive type F90 .0 and Primary insomnia F51.01 [place] [address] [address] Aug, ADHD, predominantly inattentive type F90 .0 and Primary insomnia F51.01 [place] [address] [address] Jul, Major depressive disorder, recurrent epi sode, in full remission F33.42 ; ADHD, predominantly inattentive 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 ; Primary insomnia F51.01 ; Acute non-recurrent maxillary sinusitis J01.00 and Screening, lipid Z13.220 [facility] [address] [facility] [id number] [address] [place] [address] Jun, Acute non-recurrent maxillar y sinusitis J01.00 [facility] [address] [address] Jun, ADHD, predominantly inattentive type F90 .0 [facility] [address] [address] May, [facility] [address] [id number] [place] [address] Apr, [facility] [address] [facility] [id number] [address] [place] [address] Feb, 2016 Rash R21 and Scabies B86 [facility] [address] [id number] [place] [address] Feb, ADHD, predominantly inattentive type F90 .0 and Major depressive disorder, recurrent episode, in full remission F33.42 [facility] [address] [place] [id number] [place] [address] Feb, [facility] [address] [address] Oct, [facility] [address] [id number] [place] [address] Sep, [facility] [address] [address] Sep, [facility] [address] [place] [id number] [place] [address] Aug, [facility] [address] [place] [id number] [place] [address] Jul, [facility] [address] [place] [id number] [place] [address] Jun, [facility] [address] [place] [id number] [place] [address] May, [facility] [address] [place] [id number] [place] [address] May, ADHD, predominantly inattentive type F90 .0 and Major depressive disorder, recurrent episode, in full remission F33.42 [facility] [address] [place] [id number] [place] [address] Feb, Major depressive disorder, recurrent epi sode, moderate 296.32 [facility] [address] [address] Feb, [facility] [address] [id number] [place] [address] Jan, [facility] [address] [id number] [place] [address] Jan, [facility] [address] [id number] [place] [address] December, [facility] [address] [id number] [place] [address] Nov, [facility] [address] [id number] [place] [address] Nov, [facility] [address] [id number] [place] [address] Oct, [facility] [address] [id number] [place] [address] Oct, [facility] [address] [id number] [place] [address] Sep, [facility] [address] [id number] [place] [address] Sep, [facility] [address] [id number] [place] [address] Sep, [facility] [address] [id number] [place] [address] Sep, [facility] [address] [id number] [place] [address] Aug, [facility] [address] [id number] [place] [address] Aug, [facility] [address] [id number] [place] [address] Aug, [facility] [address] [id number] [place] [address] Aug, [facility] [address] [id number] [place] [address] Aug, [facility] [address] [id number] [place] [address] Aug, [facility] [address] [facility] [id number] [facility] [place] [address] Jul, [facility] [address] [id number] [place] [address] Jul, [facility] [address] [id number] [place] [address] Jun, [facility] [address] [id number] [place] [address] Jun, [facility] [address] [id number] [place] [address] May, [facility] [address] [id number] [place] [address] May, [facility] [address] [id number] [place] [address] Apr, [facility] [address] [id number] [place] [address] Apr, [facility] [address] [id number] [place] [address] Apr, [facility] [address] [id number] [place] [address] Mar, [facility] [address] [id number] [place] [address] Mar, [facility] [address] [id number] [place] [address] Mar, [facility] [address] [id number] [place] [address] Mar, [facility] [address] [id number] [place] [address] Feb, [facility] [address] [id number] [place] [address] Feb, [facility] [address] [id number] [place] [address] Feb, [facility] [address] [facility] [id number] [place] [address] Feb, [facility] [address] [facility] [id number] [place] [address] Feb, [facility] [address] [facility] [id number] [place] [address] Feb, [facility] [address] [id number] [place] [address] Jan, [facility] [address] [facility] [id number] [place] [address] Jan, [facility] [address] [id number] [place] [address] Jan, [facility] [address] [id number] [place] [address] Jan, [facility] [address] [id number] [place] [address] December, [facility] [address] [id number] [place] [address] December, [facility] [address] [id number] [place] [address] December, [facility] [address] [id number] [place] [address] December, [facility] [address] [id number] [place] [address] December, [facility] [address] [id number] [place] [address] December, [facility] [address] [id number] [place] [address] December, [facility] [address] [id number] [place] [address] December, [facility] [address] [id number] [place] [address] December, [facility] [address] [id number] [place] [address] December, [facility] [address] [facility] [id number] [place] [address] Nov, [facility] [address] [facility] [id number] [place] [address] Nov, [facility] [address] [id number] [place] [address] Oct, [facility] [address] [id number] [place] [address] Oct, [facility] [address] [facility] [id number] [place] [address] Oct, [facility] [address] [id number] [place] [address] Oct, [facility] [address] [id number] [place] [address] Oct, [facility] [address] [id number] [place] [address] Oct, [facility] [address] [id number] [place] [address] Aug, [facility] [address] [id number] [place] [address] Aug, [facility] [address] [id number] [place] [address] Aug, [facility] [address] [id number] [place] [address] Aug, [facility] [address] [id number] [place] [address] Aug, [facility] [address] [id number] [place] [address] Aug, [facility] [address] [id number] [place] [address] Aug, [facility] [address] [id number] [place] [address] Aug, [facility] [address] [id number] [place] [address] 05 Jul, 2013 [facility] [address] [id number] [place] [address] Jul, [facility] [address] [id number] [place] [address] Jun, [facility] [address] [id number] [place] [address] Jun, [facility] [address] [id number] [place] [address] Jun, [facility] [address] [id number] [place] [address] Jun, [facility] [address] [id number] [place] [address] Jun, [facility] [address] [id number] [place] [address] Jun, [facility] [address] [id number] [place] [address] May, [facility] [address] [id number] [place] [address] May, [facility] [address] [id number] [place] [address] Apr, [facility] [address] [id number] [place] [address] Apr, [facility] [address] [id number] [place] [address] Mar, [facility] [address] [id number] [place] [address] Mar, [facility] [address] [id number] [place] [address] Mar, [facility] [address] [id number] [place] [address] Feb, [facility] [address] [id number] [place] [address] Jan, [facility] [address] [id number] [place] [address] December, [facility] [address] [id number] [place] [address] December, [facility] [address] [id number] [place] [address] December, [facility] [address] [id number] [place] [address] December, [facility] [address] [id number] [place] [address] December, [facility] [address] [id number] [place] [address] December, [facility] [address] [id number] [place] [address] Nov, [facility] [address] [id number] [place] [address] Nov, [facility] [address] [id number] [place] [address] Nov, [facility] [address] [id number] [place] [address] Oct, [facility] [address] [id number] [place] [address] Jun, [facility] [address] [id number] [place] [address] 14 Jun, 2012 [facility] [address] [id number] [place] [address] Jun, [facility] [address] [id number] [place] [address] Jun, [facility] [address] [id number] [place] [address] Apr, [facility] [address] [id number] [place] [address] Mar, [facility] [address] [id number] [place] [address] Mar, [facility] [address] [id number] [place] [address] Jan, [facility] [address] [place] [id number] [place] [address] December, [facility] [address] [place] [address] [id number] [place] [address] Nov, [facility] [address] [place] [address] [id number] [place] [address] Nov, [facility] [address] [place] [id number] [place] [address] Nov, [facility] [address] [address] Nov, [facility] [address] [place] [id number] [place] [address] Aug, [facility] [address] [place] [id number] [place] [address] Aug, [facility] [address] [place] [id number] [place] [address] Jul, [facility] [address] [place] [address] [id number] [place] [address] Jun, [facility] [id number] [place] [address] Jun, [facility] [id number] [place] [address] Apr, [facility] [address] [place] [id number] [place] [address] Feb, IMMUNIZATIONS No Known Immunizations SOCIAL HISTORY Never Assessed REASON FOR VISIT PLAN OF CARE VITAL SIGNS Height 64 in 2014-02-05 Weight 163.4 lbs 2014-02-05 Temperature 97.7 degrees Fahrenheit 2014-02-05 Heart Rate 84 bpm 2014-02-05 Respiratory Rate 16 2014-02-05 Blood pressure systolic 122 mmHg 2014-02-05 Blood pressure diastolic 78 mmHg 2014-02-05 MEDICATIONS Unknown Medications RESULTS No Results PROCEDURES No Known procedures INSTRUCTIONS MEDICATIONS ADMINISTERED No Known Medications MEDICAL (GENERAL) HISTORY Type Description Date Medical History Hypertension Medical History ADHD Medical History depression Medical History anxiety Surgical History section Surgical History collar bone repair
--- OUTSIDE RECORDS SUMMARY | 2020-02-11 01:28 | XMS REPORT ---
Author Author Elaine GALARZA Organization [facility] Address [address] [place] [address] Care Team Providers Care Pile Driving Nozzleman Name Role Phone MARI GALARZA Unavailable PROBLEMS Type Condition ICD9-CM Code ZIV43-SO Code Onset Dates Condition S tatus SNOMED Code Problem ADHD, predominantly inattentive type F90.0 Active 40742949 Problem Primary insomnia F51.01 Active 397 2004 Problem Essential hypertension I10 Active 19103879 Problem Non-seasonal allergic rhinitis due to pollen J30.1 Active 26385060 Problem Major depressive disorder, recurrent episode, in full remission F33.42 Active 088927359 Problem Severe episode of recurrent major depressive disorder, without psychotic features F33.2 Active 95138102 Problem Seasonal allergies J30.2 Active 4 39943756 Problem Moderate episode of recurrent major depressive disorder F33.1 Active 121909081 Problem Intractable migraine without aura and with status migr ainosus G43.011 Active 675857494 Problem Migraine without aura and without status migrain osus, not intractable G43.009 Active 519551901 ALLERGIES No Information ENCOUNTERS Encounter Location Date Diagnosis [place] [address] [address] Aug, ADHD, predominantly inattentive type F90 .0 [place] [id number] [address] Jul, ADHD, predominantly inattentive type F90 .0 [place] [address] [address] Jun, ADHD, predominantly inattentive type F90 .0 ; Moderate episode of recurrent major depressive disorder F33.1 and Intractable migraine without aura and with status migrainosus G43.011 [place] [address] [address] May, Severe episode of recurrent major depres sive disorder, without psychotic features F33.2 [facility] [address] [place] [id number] [place] [address] May, [facility] [address] [address] Apr, [facility] [address] [address] Mar, Moderate episode of recurrent major depr essive disorder F33.1 [facility] [address] [address] Mar, [facility] [address] [address] Feb, [facility] [address] [address] Feb, [facility] [address] [address] Jan, Major depressive disorder, recurrent epi sode, in full remission F33.42 [facility] [address] [address] Jan, Moderate episode of recurrent major depr essive disorder F33.1 ; Non- seasonal allergic rhinitis due to pollen J30.1 ; Migraine without aura and without status migrainosus, not intractable G43.009 and Sinus congestion R09.81 [facility] [address] [address] Jan, [facility] [address] [address] December, Moderate episode of recurrent major depr essive disorder F33.1 [facility] [address] [address] December, [facility] [address] [address] December, Moderate episode of recurrent major depr essive disorder F33.1 [facility] [address] [address] Nov, Moderate episode of recurrent major depr essive disorder F33.1 and Intractable migraine without aura and with status migrainosus G43.011 [facility] [address] [address] Nov, [facility] [address] [address] Oct, Major depressive disorder, recurrent epi sode, in full remission F33.42 ; Intractable migraine without aura and with status migrainosus G43.011 ; Weight gain R63.5 ; Vision changes H53.9 and 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 [place] [address] [address] Oct, Encounter for pre-employment examination Z02.1 [place] [address] [address] Oct, [facility] [address] [facility] [place] [id number] [address] [address] 20 Sep, 2018 Acute non-recurrent maxillar y sinusitis J01.00 [place] [address] [address] 14 Sep, 2018 [facility] [address] [address] Aug, [place] [address] [address] Jul, ADHD, predominantly inattentive type F90 .0 and Primary insomnia F51.01 [place] [address] [address] Jun, ADHD, predominantly inattentive type F90 .0 [place] [address] [address] May, ADHD, predominantly inattentive type F90 .0 ; Moderate episode of recurrent major depressive disorder F33.1 and Therapeutic drug monitoring Z51.81 [place] [address] [address] May, [place] [address] [address] Apr, ADHD, predominantly inattentive type F90 .0 [place] [address] [address] Apr, ADHD, predominantly inattentive type F90 .0 and Major depressive disorder, recurrent episode, in full remission F33.42 [place] [address] [address] Mar, ADHD, predominantly inattentive type F90 .0 and Primary insomnia F51.01 [place] [address] [address] Mar, [place] [address] [address] Mar, ADHD, predominantly inattentive type F90 .0 and Primary insomnia F51.01 [place] [address] [address] Feb, ADHD, predominantly inattentive type F90 .0 and Primary insomnia F51.01 [place] [address] [address] Jan, ADHD, predominantly inattentive type F90 .0 and Primary insomnia F51.01 [facility] [address] [facility] [place] [id number] [address] [place] [address] December, Seasonal allergies J30.2 and Post-nasal drip R09.82 [place] [address] [address] December, ADHD, predominantly inattentive type F90 .0 and Primary insomnia F51.01 [place] [address] [address] Nov, ADHD, predominantly inattentive type F90 .0 [place] [address] [address] Oct, ADHD, predominantly inattentive type F90 .0 [facility] [address] [address] Oct, ADHD, predominantly inattentive type F90 .0 ; Primary insomnia F51.01 and Screening, lipid Z13.220 [facility] [address] [address] Sep, ADHD, predominantly inattentive type F90 .0 [facility] [address] [address] Aug, ADHD, predominantly inattentive type F90 .0 and Primary insomnia F51.01 [facility] [address] [address] Jul, ADHD, predominantly inattentive type F90 .0 [facility] [address] [address] Jul, Primary insomnia F51.01 and ADHD, predom inantly inattentive type F90.0 [facility] [address] [address] Jun, ADHD, predominantly inattentive type F90 .0 [facility] [address] [address] May, ADHD, predominantly inattentive type F90 .0 [facility] [address] [address] Apr, ADHD, predominantly inattentive type F90 .0 [facility] [address] [address] Mar, ADHD, predominantly inattentive type F90 .0 ; Primary insomnia F51.01 ; Major depressive disorder, recurrent episode, in full remission F33.42 and Acne comedone L70.0 [facility] [address] [address] Mar, Major depressive disorder, recurrent epi sode, in full remission F33.42 and ADHD, predominantly inattentive type F90.0 [facility] [address] [address] Feb, ADHD, predominantly inattentive type F90 .0 [place] [address] [address] Feb, Primary insomnia F51.01 [facility] [address] [address] Jan, ADHD, predominantly inattentive type F90 .0 and Primary insomnia F51.01 [place] [address] [address] December, ADHD, predominantly inattentive type F90 .0 and Primary insomnia F51.01 [place] [address] [address] Oct, ADHD, predominantly inattentive type F90 .0 and Primary insomnia F51.01 [place] [address] [address] Sep, ADHD, predominantly inattentive type F90 .0 and Primary insomnia F51.01 [place] [address] [address] Aug, ADHD, predominantly inattentive type F90 .0 and Primary insomnia F51.01 [place] [address] [address] Jul, Major depressive disorder, recurrent epi sode, in full remission F33.42 ; ADHD, predominantly inattentive type F90.0 ; Primary insomnia F51.01 ; Acute non-recurrent maxillary sinusitis J01.00 and Screening, lipid Z13.220 [facility] [address] [facility] [place] [place] [id number] [address] [place] [address] Jun, Acute non-recurrent maxillar y sinusitis J01.00 [facility] [address] [address] Jun, ADHD, predominantly inattentive type F90 .0 [facility] [address] [address] May, [facility] [address] [facility] [id number] [place] [address] Apr, [facility] [address] [facility] [place] [place] [id number] [address] [place] [address] Feb, 2016 Rash R21 and Scabies B86 [facility] [address] [facility] [id number] [place] [address] Feb, ADHD, predominantly inattentive type F90 .0 and Major depressive disorder, recurrent episode, in full remission F33.42 [facility] [address] [place] [id number] [place] [address] Feb, [facility] [address] [address] Oct, [facility] [address] [id number] [place] [address] Sep, [facility] [address] [address] Sep, [facility] [address] [place] [id number] [place] [address] Aug, [facility] [address] [place] [id number] [place] [address] Jul, [facility] [address] [place] [id number] [place] [address] Jun, [facility] [address] [place] [id number] [place] [address] May, [facility] [address] [place] [id number] [place] [address] May, ADHD, predominantly inattentive type F90 .0 and Major depressive disorder, recurrent episode, in full remission F33.42 [facility] [address] [place] [id number] [place] [address] Feb, Major depressive disorder, recurrent epi sode, moderate 296.32 [facility] [address] [address] Feb, [facility] [address] [id number] [place] [address] Jan, [facility] [id number] [place] [address] Jan, [facility] [address] [id number] [place] [address] December, [facility] [address] [id number] [place] [address] Nov, [facility] [address] [id number] [place] [address] Nov, [facility] [address] [id number] [place] [address] Oct, [facility] [address] [id number] [place] [address] Oct, [facility] [address] [id number] [place] [address] Sep, [facility] [address] [id number] [place] [address] Sep, [facility] [address] [id number] [place] [address] Sep, [facility] [address] [id number] [place] [address] Sep, [facility] [address] [facility] [id number] [place] [address] Aug, [facility] [address] [facility] [id number] [place] [address] Aug, [facility] [address] [id number] [place] [address] Aug, [facility] [address] [id number] [place] [address] Aug, [facility] [address] [id number] [place] [address] Aug, [facility] [address] [id number] [place] [address] Aug, [facility] [address] [facility] [place] [place] [id number] [facility] [place] [address] Jul, [facility] [address] [facility] [id number] [place] [address] Jul, [facility] [address] [id number] [place] [address] Jun, [facility] [address] [id number] [place] [address] Jun, [facility] [id number] [place] [address] May, [facility] [id number] [place] [address] May, [facility] [id number] [place] [address] Apr, [facility] [id number] [place] [address] Apr, [facility] [id number] [place] [address] Apr, [facility] [id number] [place] [address] Mar, [facility] [id number] [place] [address] Mar, [facility] [id number] [place] [address] Mar, [facility] [id number] [place] [address] Mar, [facility] [id number] [place] [address] Feb, [facility] [id number] [place] [address] Feb, [facility] [id number] [place] [address] Feb, [facility] [address] [facility] [place] [id number] [place] [address] Feb, [facility] [address] [facility] [place] [id number] [place] [address] Feb, [facility] [address] [facility] [place] [id number] [place] [address] Feb, [facility] [address] [facility] [id number] [place] [address] Jan, [facility] [address] [facility] [place] [id number] [place] [address] Jan, [facility] [address] [facility] [id number] [place] [address] Jan, [facility] [address] [id number] [place] [address] Jan, [facility] [id number] [place] [address] December, [facility] [id number] [place] [address] December, [facility] [id number] [place] [address] December, [facility] [id number] [place] [address] December, [facility] [id number] [place] [address] December, [facility] [id number] [place] [address] December, [facility] [id number] [place] [address] December, [facility] [address] [id number] [place] [address] December, [facility] [address] [id number] [place] [address] December, [facility] [address] [id number] [place] [address] December, [facility] [address] [facility] [place] [id number] [place] [address] Nov, [facility] [address] [facility] [place] [id number] [place] [address] Nov, [facility] [address] [id number] [place] [address] Oct, [facility] [address] [id number] [place] [address] Oct, [facility] [address] [facility] [place] [id number] [place] [address] Oct, [facility] [address] [facility] [id number] [place] [address] Oct, [facility] [id number] [place] [address] Oct, [facility] [id number] [place] [address] Oct, [facility] [id number] [place] [address] Aug, [facility] [id number] [place] [address] Aug, [facility] [id number] [place] [address] Aug, [facility] [id number] [place] [address] Aug, [facility] [id number] [place] [address] Aug, [facility] [id number] [place] [address] Aug, [facility] [id number] [place] [address] Aug, [facility] [id number] [place] [address] Aug, [facility] [id number] [place] [address] 05 Jul, 2013 [facility] [id number] [place] [address] Jul, [facility] [id number] [place] [address] Jun, [facility] [id number] [place] [address] Jun, [facility] [id number] [place] [address] Jun, [facility] [id number] [place] [address] Jun, [facility] [id number] [place] [address] Jun, [facility] [id number] [place] [address] Jun, [facility] [id number] [place] [address] May, [facility] [address] [id number] [place] [address] May, [facility] [id number] [place] [address] Apr, [facility] [address] [id number] [place] [address] Apr, [facility] [address] [id number] [place] [address] Mar, [facility] [address] [id number] [place] [address] Mar, [facility] [address] [id number] [place] [address] Mar, [facility] [address] [id number] [place] [address] Feb, [facility] [address] [id number] [place] [address] Jan, [facility] [address] [id number] [place] [address] December, [facility] [address] [id number] [place] [address] December, [facility] [address] [id number] [place] [address] December, [facility] [address] [id number] [place] [address] December, [facility] [address] [id number] [place] [address] December, [facility] [address] [id number] [place] [address] December, [facility] [address] [id number] [place] [address] Nov, [facility] [address] [id number] [place] [address] Nov, [facility] [address] [id number] [place] [address] Nov, [facility] [address] [id number] [place] [address] Oct, [facility] [address] [id number] [place] [address] Jun, [facility] [address] [id number] [place] [address] 14 Jun, 2012 [facility] [address] [id number] [place] [address] Jun, [facility] [address] [id number] [place] [address] Jun, [facility] [address] [id number] [place] [address] Apr, [facility] [address] [id number] [place] [address] Mar, [facility] [address] [id number] [place] [address] Mar, [facility] [id number] [place] [address] Jan, [facility] [id number] [place] [address] December, [facility] [address] [id number] [place] [address] Nov, [facility] [id number] [place] [address] Nov, [facility] [address] [id number] [place] [address] Nov, [facility] [id number] [place] [address] Nov, [facility] [address] [id number] [place] [address] Aug, [facility] [id number] [place] [address] Aug, [facility] [address] [id number] [place] [address] Jul, [facility] [id number] [place] [address] Jun, [facility] [address] [id number] [place] [address] Jun, [facility] [address] [id number] [place] [address] Apr, [facility] [id number] [place] [address] Feb, IMMUNIZATIONS No Known Immunizations SOCIAL HISTORY [...]
--- OUTSIDE RECORDS SUMMARY | 2020-02-11 01:28 | XMS REPORT ---
Author Author Elaine GALARZA Organization [facility] Address [address] [place] [address] Care Team Providers Care Manager Council Name Role Phone MARI GALARZA Unavailable PROBLEMS Type Condition ICD9-CM Code VAY09-GS Code Onset Dates Condition S tatus SNOMED Code Problem ADHD, predominantly inattentive type F90.0 Active 83485482 Problem Primary insomnia F51.01 Active 397 2004 Problem Essential hypertension I10 Active 48199903 Problem Non-seasonal allergic rhinitis due to pollen J30.1 Active 66530182 Problem Major depressive disorder, recurrent episode, in full remission F33.42 Active 749568419 Problem Severe episode of recurrent major depressive disorder, without psychotic features F33.2 Active 94611610 Problem Seasonal allergies J30.2 Active 4 69783068 Problem Moderate episode of recurrent major depressive disorder F33.1 Active 944825021 Problem Intractable migraine without aura and with status migr ainosus G43.011 Active 487007576 Problem Migraine without aura and without status migrain osus, not intractable G43.009 Active 740391712 ALLERGIES No Information ENCOUNTERS Encounter Location Date Diagnosis [place] [address] [address] Aug, ADHD, predominantly inattentive type F90 .0 [place] [address] [address] Jul, ADHD, predominantly inattentive type F90 .0 [place] [address] [address] Jun, ADHD, predominantly inattentive type F90 .0 ; Moderate episode of recurrent major depressive disorder F33.1 and Intractable migraine without aura and with status migrainosus G43.011 [place] [address] [address] May, Severe episode of recurrent major depres sive disorder, without psychotic features F33.2 [facility] [address] [place] [id number] [place] [address] May, [facility] [address] [address] Apr, [facility] [address] [address] Mar, Moderate episode of recurrent major depr essive disorder F33.1 [facility] [address] [address] Mar, [facility] [address] [address] Feb, [facility] [address] [address] Feb, [facility] [address] [address] Jan, Major depressive disorder, recurrent epi sode, in full remission F33.42 [facility] [address] [address] Jan, Moderate episode of recurrent major depr essive disorder F33.1 ; Non- seasonal allergic rhinitis due to pollen J30.1 ; Migraine without aura and without status migrainosus, not intractable G43.009 and Sinus congestion R09.81 [facility] [address] [address] Jan, [facility] [address] [address] December, Moderate episode of recurrent major depr essive disorder F33.1 [facility] [address] [address] December, [facility] [address] [address] December, Moderate episode of recurrent major depr essive disorder F33.1 [facility] [address] [address] Nov, Moderate episode of recurrent major depr essive disorder F33.1 and Intractable migraine without aura and with status migrainosus G43.011 [facility] [address] [address] Nov, [facility] [address] [address] Oct, Major depressive disorder, recurrent epi sode, in full remission F33.42 ; Intractable migraine without aura and with status migrainosus G43.011 ; Weight gain R63.5 ; Vision changes H53.9 and 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 [place] [address] [address] Oct, Encounter for pre-employment examination Z02.1 [place] [address] [address] Oct, [facility] [address] [id number] [place] [address] 20 Sep, 2018 Acute non-recurrent maxillar y sinusitis J01.00 [place] [address] [address] 14 Sep, 2018 [facility] [address] [address] Aug, [place] [address] [address] Jul, ADHD, predominantly inattentive type F90 .0 and Primary insomnia F51.01 [place] [address] [address] Jun, ADHD, predominantly inattentive type F90 .0 [place] [address] [address] May, ADHD, predominantly inattentive type F90 .0 ; Moderate episode of recurrent major depressive disorder F33.1 and Therapeutic drug monitoring Z51.81 [place] [address] [address] May, [place] [address] [address] Apr, ADHD, predominantly inattentive type F90 .0 [place] [address] [address] Apr, ADHD, predominantly inattentive type F90 .0 and Major depressive disorder, recurrent episode, in full remission F33.42 [place] [address] [address] Mar, ADHD, predominantly inattentive type F90 .0 and Primary insomnia F51.01 [place] [address] [address] Mar, [place] [address] [address] Mar, ADHD, predominantly inattentive type F90 .0 and Primary insomnia F51.01 [place] [address] [address] Feb, ADHD, predominantly inattentive type F90 .0 and Primary insomnia F51.01 [place] [address] [address] Jan, ADHD, predominantly inattentive type F90 .0 and Primary insomnia F51.01 [facility] [address] [id number] [address] [place] [address] December, Seasonal allergies J30.2 and Post-nasal drip R09.82 [place] [address] [address] December, ADHD, predominantly inattentive type F90 .0 and Primary insomnia F51.01 [place] [address] [address] Nov, ADHD, predominantly inattentive type F90 .0 [place] [address] [address] Oct, ADHD, predominantly inattentive type F90 .0 [facility] [address] [address] Oct, ADHD, predominantly inattentive type F90 .0 ; Primary insomnia F51.01 and Screening, lipid Z13.220 [facility] [address] [address] Sep, ADHD, predominantly inattentive type F90 .0 [facility] [address] [address] Aug, ADHD, predominantly inattentive type F90 .0 and Primary insomnia F51.01 [facility] [address] [address] Jul, ADHD, predominantly inattentive type F90 .0 [facility] [address] [address] Jul, Primary insomnia F51.01 and ADHD, predom inantly inattentive type F90.0 [facility] [address] [address] Jun, ADHD, predominantly inattentive type F90 .0 [facility] [address] [address] May, ADHD, predominantly inattentive type F90 .0 [facility] [address] [address] Apr, ADHD, predominantly inattentive type F90 .0 [facility] [address] [address] Mar, ADHD, predominantly inattentive type F90 .0 ; Primary insomnia F51.01 ; Major depressive disorder, recurrent episode, in full remission F33.42 and Acne comedone L70.0 [facility] [address] [address] Mar, Major depressive disorder, recurrent epi sode, in full remission F33.42 and ADHD, predominantly inattentive type F90.0 [facility] [address] [address] Feb, ADHD, predominantly inattentive type F90 .0 [place] [address] [address] Feb, Primary insomnia F51.01 [facility] [address] [address] Jan, ADHD, predominantly inattentive type F90 .0 and Primary insomnia F51.01 [place] [address] [address] December, ADHD, predominantly inattentive type F90 .0 and Primary insomnia F51.01 [place] [address] [address] Oct, ADHD, predominantly inattentive type F90 .0 and Primary insomnia F51.01 [place] [address] [address] Sep, ADHD, predominantly inattentive type F90 .0 and Primary insomnia F51.01 [place] [address] [address] Aug, ADHD, predominantly inattentive type F90 .0 and Primary insomnia F51.01 [place] [address] [address] Jul, Major depressive disorder, recurrent epi sode, in full remission F33.42 ; ADHD, predominantly inattentive type F90.0 ; Primary insomnia F51.01 ; Acute non-recurrent maxillary sinusitis J01.00 and Screening, lipid Z13.220 [facility] [address] [id number] [address] [place] [address] Jun, Acute non-recurrent maxillar y sinusitis J01.00 [facility] [address] [address] Jun, ADHD, predominantly inattentive type F90 .0 [facility] [address] [address] May, [facility] [address] [id number] [place] [address] Apr, [facility] [address] [id number] [address] [place] [address] Feb, 2016 Rash R21 and Scabies B86 [facility] [address] [id number] [place] [address] Feb, ADHD, predominantly inattentive type F90 .0 and Major depressive disorder, recurrent episode, in full remission F33.42 [facility] [address] [place] [id number] [place] [address] Feb, [facility] [address] [address] Oct, [facility] [address] [id number] [place] [address] Sep, [facility] [address] [address] Sep, [facility] [address] [place] [id number] [place] [address] Aug, [facility] [address] [place] [id number] [place] [address] Jul, [facility] [address] [place] [id number] [place] [address] Jun, [facility] [address] [place] [id number] [place] [address] May, [facility] [address] [place] [id number] [place] [address] May, ADHD, predominantly inattentive type F90 .0 and Major depressive disorder, recurrent episode, in full remission F33.42 [facility] [address] [place] [id number] [place] [address] Feb, Major depressive disorder, recurrent epi sode, moderate 296.32 [facility] [address] [address] Feb, [facility] [address] [id number] [place] [address] Jan, [facility] [address] [id number] [place] [address] Jan, [facility] [address] [id number] [place] [address] December, [facility] [address] [id number] [place] [address] Nov, [facility] [address] [id number] [place] [address] Nov, [facility] [address] [id number] [place] [address] Oct, [facility] [address] [id number] [place] [address] Oct, [facility] [address] [id number] [place] [address] Sep, [facility] [address] [id number] [place] [address] Sep, [facility] [address] [id number] [place] [address] Sep, [facility] [address] [id number] [place] [address] Sep, [facility] [address] [id number] [place] [address] Aug, [facility] [address] [id number] [place] [address] Aug, [facility] [address] [id number] [place] [address] Aug, [facility] [address] [id number] [place] [address] Aug, [facility] [address] [id number] [place] [address] Aug, [facility] [address] [id number] [place] [address] Aug, [facility] [address] [id number] [place] [address] Jul, [facility] [address] [id number] [place] [address] Jul, [facility] [address] [id number] [place] [address] Jun, [facility] [address] [id number] [place] [address] Jun, [facility] [address] [id number] [place] [address] May, [facility] [address] [id number] [place] [address] May, [facility] [address] [id number] [place] [address] Apr, [facility] [address] [id number] [place] [address] Apr, [facility] [address] [id number] [place] [address] Apr, [facility] [address] [id number] [place] [address] Mar, [facility] [address] [id number] [place] [address] Mar, [facility] [address] [id number] [place] [address] Mar, [facility] [address] [id number] [place] [address] Mar, [facility] [address] [id number] [place] [address] Feb, [facility] [address] [id number] [place] [address] Feb, [facility] [address] [id number] [place] [address] Feb, [facility] [address] [id number] [place] [address] Feb, [facility] [address] [id number] [place] [address] Feb, [facility] [address] [id number] [place] [address] Feb, [facility] [address] [id number] [place] [address] Jan, [facility] [address] [id number] [place] [address] Jan, [facility] [address] [id number] [place] [address] Jan, [facility] [address] [id number] [place] [address] Jan, [facility] [address] [id number] [place] [address] December, [facility] [address] [id number] [place] [address] December, [facility] [address] [id number] [place] [address] December, [facility] [address] [id number] [place] [address] December, [facility] [address] [id number] [place] [address] December, [facility] [address] [id number] [place] [address] December, [facility] [address] [id number] [place] [address] December, [facility] [address] [id number] [place] [address] December, [facility] [address] [id number] [place] [address] December, [facility] [address] [id number] [place] [address] December, [facility] [address] [id number] [place] [address] Nov, [facility] [address] [id number] [place] [address] Nov, [facility] [address] [id number] [place] [address] Oct, [facility] [address] [id number] [place] [address] Oct, [facility] [address] [id number] [place] [address] Oct, [facility] [address] [id number] [place] [address] Oct, [facility] [address] [id number] [place] [address] Oct, [facility] [address] [id number] [place] [address] Oct, [facility] [address] [id number] [place] [address] Aug, [facility] [address] [id number] [place] [address] Aug, [facility] [address] [id number] [place] [address] Aug, [facility] [address] [id number] [place] [address] Aug, [facility] [address] [id number] [place] [address] Aug, [facility] [address] [id number] [place] [address] Aug, [facility] [address] [id number] [place] [address] Aug, [facility] [address] [id number] [place] [address] Aug, [facility] [address] [id number] [place] [address] 05 Jul, 2013 [facility] [address] [id number] [place] [address] Jul, [facility] [address] [id number] [place] [address] Jun, [facility] [address] [id number] [place] [address] Jun, [facility] [address] [id number] [place] [address] Jun, [facility] [address] [id number] [place] [address] Jun, [facility] [address] [id number] [place] [address] Jun, [facility] [address] [id number] [place] [address] Jun, [facility] [address] [id number] [place] [address] May, [facility] [address] [id number] [place] [address] May, [facility] [address] [id number] [place] [address] Apr, [facility] [address] [id number] [place] [address] Apr, [facility] [address] [id number] [place] [address] Mar, [facility] [address] [id number] [place] [address] Mar, [facility] [address] [id number] [place] [address] Mar, [facility] [address] [id number] [place] [address] Feb, [facility] [address] [id number] [place] [address] Jan, [facility] [address] [id number] [place] [address] December, [facility] [address] [id number] [place] [address] December, [facility] [address] [id number] [place] [address] December, [facility] [address] [id number] [place] [address] December, [facility] [address] [id number] [place] [address] December, [facility] [address] [id number] [place] [address] December, [facility] [address] [id number] [place] [address] Nov, [facility] [address] [id number] [place] [address] Nov, [facility] [address] [id number] [place] [address] Nov, [facility] [address] [id number] [place] [address] Oct, [facility] [address] [id number] [place] [address] Jun, [facility] [address] [id number] [place] [address] 14 Jun, 2012 [facility] [address] [id number] [place] [address] Jun, [facility] [address] [id number] [place] [address] Jun, [facility] [address] [id number] [place] [address] Apr, [facility] [address] [id number] [place] [address] Mar, [facility] [address] [id number] [place] [address] Mar, [facility] [address] [id number] [place] [address] Jan, [facility] [address] [id number] [place] [address] December, [facility] [address] [id number] [place] [address] Nov, [facility] [id number] [place] [address] Nov, [facility] [address] [id number] [place] [address] Nov, [facility] [id number] [place] [address] Nov, [facility] [address] [id number] [place] [address] Aug, [facility] [id number] [place] [address] Aug, [facility] [address] [id number] [place] [address] Jul, [facility] [id number] [place] [address] Jun, [facility] [address] [id number] [place] [address] Jun, [facility] [address] [id number] [place] [address] Apr, [facility] [address] [id number] [place] [address] Feb, IMMUNIZATIONS No Known Immunizations SOCIAL HISTORY [...]
--- OUTSIDE RECORDS SUMMARY | 2020-02-11 01:28 | XMS REPORT ---
Author Author Elaine GALARZA Organization [facility] Address [address] [place] [address] Care Team Providers Care Fishing Accessories Maker Name Role Phone MARI GALARZA Unavailable PROBLEMS Type Condition ICD9-CM Code [id number] Code Onset Dates Condition S tatus SNOMED Code Problem ADHD, predominantly inattentive type F90.0 Active 25694538 Problem Primary insomnia F51.01 Active 397 2004 Problem Essential hypertension I10 Active 52709933 Problem Non-seasonal allergic rhinitis due to pollen J30.1 Active 01815070 Problem Major depressive disorder, recurrent episode, in full remission F33.42 Active 474902656 Problem Severe episode of recurrent major depressive disorder, without psychotic features F33.2 Active 38307234 Problem Seasonal allergies J30.2 Active 4 40129528 Problem Moderate episode of recurrent major depressive disorder F33.1 Active 229151749 Problem Intractable migraine without aura and with status migr ainosus G43.011 Active 644863945 Problem Migraine without aura and without status migrain osus, not intractable G43.009 Active [id number] ALLERGIES No Information ENCOUNTERS Encounter Location Date Diagnosis [place] [address] [address] Aug, ADHD, predominantly inattentive type F90 .0 [place] [id number] [address] Jul, ADHD, predominantly inattentive type F90 .0 [place] [address] [address] Jun, ADHD, predominantly inattentive type F90 .0 ; Moderate episode of recurrent major depressive disorder F33.1 and Intractable migraine without aura and with status migrainosus G43.011 [place] [address] [address] May, Severe episode of recurrent major depres sive disorder, without psychotic features F33.2 [facility] [address] [place] [id number] [place] [address] May, [facility] [address] [address] Apr, [facility] [address] [address] Mar, Moderate episode of recurrent major depr essive disorder F33.1 [facility] [address] [address] Mar, [facility] [address] [address] Feb, [facility] [address] [address] Feb, [facility] [address] [address] Jan, Major depressive disorder, recurrent epi sode, in full remission F33.42 [facility] [address] [address] Jan, Moderate episode of recurrent major depr essive disorder F33.1 ; Non- seasonal allergic rhinitis due to pollen J30.1 ; Migraine without aura and without status migrainosus, not intractable G43.009 and Sinus congestion R09.81 [facility] [address] [address] Jan, [facility] [address] [address] December, Moderate episode of recurrent major depr essive disorder F33.1 [facility] [address] [address] December, [facility] [address] [address] December, Moderate episode of recurrent major depr essive disorder F33.1 [facility] [address] [address] Nov, Moderate episode of recurrent major depr essive disorder F33.1 and Intractable migraine without aura and with status migrainosus G43.011 [facility] [address] [address] Nov, [facility] [address] [address] Oct, Major depressive disorder, recurrent epi sode, in full remission F33.42 ; Intractable migraine without aura and with status migrainosus G43.011 ; Weight gain R63.5 ; Vision changes H53.9 and 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 [place] [address] [address] Oct, Encounter for pre-employment examination Z02.1 [place] [address] [address] Oct, [facility] [address] [facility] [id number] [address] [address] 20 Sep, 2018 Acute non-recurrent maxillar y sinusitis J01.00 [place] [address] [address] 14 Sep, 2018 [facility] [address] [address] Aug, [place] [address] [address] Jul, ADHD, predominantly inattentive type F90 .0 and Primary insomnia F51.01 [place] [address] [address] Jun, ADHD, predominantly inattentive type F90 .0 [place] [address] [address] May, ADHD, predominantly inattentive type F90 .0 ; Moderate episode of recurrent major depressive disorder F33.1 and Therapeutic drug monitoring Z51.81 [place] [address] [address] May, [place] [address] [address] Apr, ADHD, predominantly inattentive type F90 .0 [place] [address] [address] Apr, ADHD, predominantly inattentive type F90 .0 and Major depressive disorder, recurrent episode, in full remission F33.42 [place] [address] [address] Mar, ADHD, predominantly inattentive type F90 .0 and Primary insomnia F51.01 [place] [address] [address] Mar, [place] [address] [address] Mar, ADHD, predominantly inattentive type F90 .0 and Primary insomnia F51.01 [place] [address] [address] Feb, ADHD, predominantly inattentive type F90 .0 and Primary insomnia F51.01 [place] [address] [address] Jan, ADHD, predominantly inattentive type F90 .0 and Primary insomnia F51.01 [facility] [address] [facility] [id number] [address] [place] [address] December, Seasonal allergies J30.2 and Post-nasal drip R09.82 [place] [address] [address] December, ADHD, predominantly inattentive type F90 .0 and Primary insomnia F51.01 [place] [address] [address] Nov, ADHD, predominantly inattentive type F90 .0 [place] [address] [address] Oct, ADHD, predominantly inattentive type F90 .0 [facility] [address] [address] Oct, ADHD, predominantly inattentive type F90 .0 ; Primary insomnia F51.01 and Screening, lipid Z13.220 [facility] [address] [address] Sep, ADHD, predominantly inattentive type F90 .0 [facility] [address] [address] Aug, ADHD, predominantly inattentive type F90 .0 and Primary insomnia F51.01 [facility] [address] [address] Jul, ADHD, predominantly inattentive type F90 .0 [facility] [address] [address] Jul, Primary insomnia F51.01 and ADHD, predom inantly inattentive type F90.0 [facility] [address] [address] Jun, ADHD, predominantly inattentive type F90 .0 [facility] [address] [address] May, ADHD, predominantly inattentive type F90 .0 [facility] [address] [address] Apr, ADHD, predominantly inattentive type F90 .0 [facility] [address] [address] Mar, ADHD, predominantly inattentive type F90 .0 ; Primary insomnia F51.01 ; Major depressive disorder, recurrent episode, in full remission F33.42 and Acne comedone L70.0 [facility] [address] [address] Mar, Major depressive disorder, recurrent epi sode, in full remission F33.42 and ADHD, predominantly inattentive type F90.0 [facility] [address] [address] Feb, ADHD, predominantly inattentive type F90 .0 [place] [address] [address] Feb, Primary insomnia F51.01 [facility] [address] [address] Jan, ADHD, predominantly inattentive type F90 .0 and Primary insomnia F51.01 [place] [address] [address] December, ADHD, predominantly inattentive type F90 .0 and Primary insomnia F51.01 [place] [address] [address] Oct, ADHD, predominantly inattentive type F90 .0 and Primary insomnia F51.01 [place] [address] [address] Sep, ADHD, predominantly inattentive type F90 .0 and Primary insomnia F51.01 [place] [address] [address] Aug, ADHD, predominantly inattentive type F90 .0 and Primary insomnia F51.01 [place] [address] [address] Jul, Major depressive disorder, recurrent epi sode, in full remission F33.42 ; ADHD, predominantly inattentive type F90.0 ; Primary insomnia F51.01 ; Acute non-recurrent maxillary sinusitis J01.00 and Screening, lipid Z13.220 [facility] [address] [facility] [id number] [address] [place] [address] Jun, Acute non-recurrent maxillar y sinusitis J01.00 [facility] [address] [address] Jun, ADHD, predominantly inattentive type F90 .0 [facility] [address] [address] May, [facility] [address] [id number] [place] [address] Apr, [facility] [address] [facility] [id number] [address] [place] [address] Feb, 2016 Rash R21 and Scabies B86 [facility] [address] [id number] [place] [address] Feb, ADHD, predominantly inattentive type F90 .0 and Major depressive disorder, recurrent episode, in full remission F33.42 [facility] [address] [place] [id number] [place] [address] Feb, [facility] [address] [address] Oct, [facility] [address] [id number] [place] [address] Sep, [facility] [address] [address] Sep, [facility] [address] [place] [id number] [place] [address] Aug, [facility] [address] [place] [id number] [place] [address] Jul, [facility] [address] [place] [id number] [place] [address] Jun, [facility] [address] [place] [id number] [place] [address] May, [facility] [address] [place] [id number] [place] [address] May, ADHD, predominantly inattentive type F90 .0 and Major depressive disorder, recurrent episode, in full remission F33.42 [facility] [address] [place] [id number] [place] [address] Feb, Major depressive disorder, recurrent epi sode, moderate 296.32 [facility] [address] [address] Feb, [facility] [address] [id number] [place] [address] Jan, [facility] [address] [id number] [place] [address] Jan, [facility] [address] [id number] [place] [address] December, [facility] [address] [id number] [place] [address] Nov, [facility] [address] [id number] [place] [address] Nov, [facility] [address] [id number] [place] [address] Oct, [facility] [address] [id number] [place] [address] Oct, [facility] [address] [id number] [place] [address] Sep, [facility] [address] [id number] [place] [address] Sep, [facility] [address] [id number] [place] [address] Sep, [facility] [address] [id number] [place] [address] Sep, [facility] [address] [id number] [place] [address] Aug, [facility] [address] [id number] [place] [address] Aug, [facility] [address] [id number] [place] [address] Aug, [facility] [address] [id number] [place] [address] Aug, [facility] [address] [id number] [place] [address] Aug, [facility] [address] [id number] [place] [address] Aug, [facility] [address] [facility] [id number] [facility] [place] [address] Jul, [facility] [address] [id number] [place] [address] Jul, [facility] [address] [id number] [place] [address] Jun, [facility] [address] [id number] [place] [address] Jun, [facility] [address] [id number] [place] [address] May, [facility] [address] [id number] [place] [address] May, [facility] [address] [id number] [place] [address] Apr, [facility] [address] [id number] [place] [address] Apr, [facility] [address] [id number] [place] [address] Apr, [facility] [address] [id number] [place] [address] Mar, [facility] [address] [id number] [place] [address] Mar, [facility] [address] [id number] [place] [address] Mar, [facility] [address] [id number] [place] [address] Mar, [facility] [address] [id number] [place] [address] Feb, [facility] [address] [id number] [place] [address] Feb, [facility] [address] [id number] [place] [address] Feb, [facility] [address] [facility] [id number] [place] [address] Feb, [facility] [address] [facility] [id number] [place] [address] Feb, [facility] [address] [facility] [id number] [place] [address] Feb, [facility] [address] [id number] [place] [address] Jan, [facility] [address] [facility] [id number] [place] [address] Jan, [facility] [address] [id number] [place] [address] Jan, [facility] [address] [id number] [place] [address] Jan, [facility] [address] [id number] [place] [address] December, [facility] [address] [id number] [place] [address] December, [facility] [address] [id number] [place] [address] December, [facility] [address] [id number] [place] [address] December, [facility] [address] [id number] [place] [address] December, [facility] [address] [id number] [place] [address] December, [facility] [address] [id number] [place] [address] December, [facility] [address] [id number] [place] [address] December, [facility] [address] [id number] [place] [address] December, [facility] [address] [id number] [place] [address] December, [facility] [address] [facility] [id number] [place] [address] Nov, [facility] [address] [facility] [id number] [place] [address] Nov, [facility] [address] [id number] [place] [address] Oct, [facility] [address] [id number] [place] [address] Oct, [facility] [address] [facility] [id number] [place] [address] Oct, [facility] [address] [id number] [place] [address] Oct, [facility] [address] [id number] [place] [address] Oct, [facility] [address] [id number] [place] [address] Oct, [facility] [address] [id number] [place] [address] Aug, [facility] [address] [id number] [place] [address] Aug, [facility] [address] [id number] [place] [address] Aug, [facility] [address] [id number] [place] [address] Aug, [facility] [address] [id number] [place] [address] Aug, [facility] [address] [id number] [place] [address] Aug, [facility] [address] [id number] [place] [address] Aug, [facility] [address] [id number] [place] [address] Aug, [facility] [address] [id number] [place] [address] 05 Jul, 2013 [facility] [address] [id number] [place] [address] Jul, [facility] [address] [id number] [place] [address] Jun, [facility] [address] [id number] [place] [address] Jun, [facility] [address] [id number] [place] [address] Jun, [facility] [address] [id number] [place] [address] Jun, [facility] [address] [id number] [place] [address] Jun, [facility] [address] [id number] [place] [address] Jun, [facility] [address] [id number] [place] [address] May, [facility] [address] [id number] [place] [address] May, [facility] [address] [id number] [place] [address] Apr, [facility] [address] [id number] [place] [address] Apr, [facility] [address] [id number] [place] [address] Mar, [facility] [address] [id number] [place] [address] Mar, [facility] [address] [id number] [place] [address] Mar, [facility] [address] [id number] [place] [address] Feb, [facility] [address] [id number] [place] [address] Jan, [facility] [address] [id number] [place] [address] December, [facility] [address] [id number] [place] [address] December, [facility] [address] [id number] [place] [address] December, [facility] [address] [id number] [place] [address] December, [facility] [address] [id number] [place] [address] December, [facility] [address] [id number] [place] [address] December, [facility] [address] [id number] [place] [address] Nov, [facility] [address] [id number] [place] [address] Nov, [facility] [address] [id number] [place] [address] Nov, [facility] [address] [id number] [place] [address] Oct, [facility] [address] [id number] [place] [address] Jun, [facility] [address] [id number] [place] [address] 14 Jun, 2012 [facility] [address] [id number] [place] [address] Jun, [facility] [address] [id number] [place] [address] Jun, [facility] [address] [id number] [place] [address] Apr, [facility] [address] [id number] [place] [address] Mar, [facility] [address] [id number] [place] [address] Mar, [facility] [address] [id number] [place] [address] Jan, [facility] [address] [id number] [place] [address] December, [facility] [address] [id number] [place] [address] Nov, [facility] [id number] [place] [address] Nov, [facility] [address] [id number] [place] [address] Nov, [facility] [id number] [place] [address] Nov, [facility] [address] [id number] [place] [address] Aug, [facility] [id number] [place] [address] Aug, [facility] [address] [id number] [place] [address] Jul, [facility] [id number] [place] [address] Jun, [facility] [address] [id number] [place] [address] Jun, [facility] [address] [id number] [place] [address] Apr, [facility] [address] [id number] [place] [address] Feb, IMMUNIZATIONS No Known Immunizations SOCIAL HISTORY [...]
--- OUTSIDE RECORDS SUMMARY | 2020-02-11 01:29 | XMS REPORT ---
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 Name Role Phone Migration, Doctor Unavailable Unavailable PROBLEMS Type Condition ICD9-CM Code [id number] Code Onset Dates Condition S tatus SNOMED Code Problem Major depressive disorder, recurrent episode, in full remission F33.42 Active 670057936 Problem ADHD, predominantly inattentive type F90.0 Active 24223645 Problem Primary insomnia F51.01 Active 397 2004 Problem Non-seasonal allergic rhinitis due to pollen J30.1 Active 68095929 Problem Migraine without aura and without status migrain osus, not intractable G43.009 Active 538040162 Problem Essential hypertension I10 Active 88795945 Problem Seasonal allergies J30.2 Active 4 26129153 Problem Moderate episode of recurrent major depressive disorder F33.1 Active 812545648 Problem Intractable migraine without aura and with status migr ainosus G43.011 Active [id number] ALLERGIES No Information ENCOUNTERS Encounter Location Date Diagnosis [facility] [address] [facility] [id number] [address] [place] [id number] May, [facility] [address] [facility] [id number] [address] [place] [phone] Apr, [facility] [address] [facility] [id number] [address] [place] [phone] Mar, Moderate episode of recurren t major depressive disorder F33.1 [facility] [address] [id number] [address] [place] [phone] Mar, [facility] [address] [id number] [address] [place] [id number] Feb, [facility] [address] [facility] [id number] [address] [place] [phone] Feb, [facility] [address] [facility] [id number] [address] [place] [phone] Jan, Major depressive disorder, r ecurrent episode, in full remission F33.42 [place] [address] [facility] [id number] [address] [place] [phone] Jan, Moderate episode of recurren t major depressive disorder F33.1 ; Non-seasonal allergic rhinitis due to pollen J30.1 ; Migraine without aura and without status migrainosus, not intractable G43.009 and Sinus congestion R09.81 [place] [address] [facility] [id number] [address] [place] [phone] Jan, [place] [address] [facility] [id number] [address] [place] [phone] December, Moderate episode of recurren t major depressive disorder F33.1 [place] [address] [place] [id number] [address] [place] [phone] December, [place] [address] [place] [id number] [address] [place] [phone] December, Moderate episode of recurren t major depressive disorder F33.1 [place] [address] [facility] [id number] [address] [place] [phone] Nov, Moderate episode of recurren t major depressive disorder F33.1 and Intractable migraine without aura and with status migrainosus G43.011 [place] [address] [place] [id number] [address] [place] [phone] Nov, [place] [address] [facility] [id number] [address] [place] [address] Oct, Major depressive disorder, r ecurrent episode, in full remission F33.42 ; Intractable migraine without aura and with status migrainosus G43.011 ; Weight gain R63.5 ; Vision changes H53.9 and Other group home (current) drug therapy Z79.899 [place] [id number] [facility] [id number] [address] [place] [phone] 15 Oct, 2018 Encounter for pre-employment examination Z02.1 [place] [address] [facility] [id number] [address] [place] [phone] Oct, [facility] [address] [id number] [address] [place] [phone] Sep, Acute non-recurrent maxillar y sinusitis J01.00 [facility] [address] [id number] [address] [place] [phone] Sep, [facility] [address] [id number] [address] [place] [phone] Aug, [facility] [address] [facility] [id number] [address] [place] [phone] Jul, ADHD, predominantly inattent randall type F90.0 and Primary insomnia F51.01 [facility] [address] [facility] [id number] [address] [place] [address] Jun, ADHD, predominantly inattent randall type F90.0 [facility] [address] [facility] [id number] [address] [place] [phone] May, ADHD, predominantly inattent randall type F90.0 ; Moderate episode of recurrent major depressive disorder F33.1 and Therapeutic drug monitoring Z51.81 [facility] [address] [facility] [id number] [address] [place] [phone] 04 May, 2018 [facility] [address] [facility] [id number] [address] [place] [phone] Apr, ADHD, predominantly inattent randall type F90.0 [facility] [address] [facility] [id number] [address] [place] [phone] 10 Apr, 2018 ADHD, predominantly inattent randall type F90.0 and Major depressive disorder, recurrent episode, in full remission F33.42 [facility] [address] [facility] [id number] [address] [place] [phone] Mar, ADHD, predominantly inattent randall type F90.0 and Primary insomnia F51.01 [facility] [address] [facility] [id number] [address] [place] [phone] Mar, [facility] [address] [facility] [id number] [address] [place] [phone] Mar, ADHD, predominantly inattent randall type F90.0 and Primary insomnia F51.01 [facility] [address] [facility] [id number] [address] [place] [phone] Feb, ADHD, predominantly inattent randall type F90.0 and Primary insomnia F51.01 [facility] [address] [place] [id number] [address] [place] [phone] Jan, ADHD, predominantly inattent randall type F90.0 and Primary insomnia F51.01 [facility] [address] [facility] [id number] [address] [place] [phone] December, Seasonal allergies J30.2 and Post-nasal drip R09.82 [place] [address] [place] [id number] [address] [place] [phone] December, ADHD, predominantly inattent randall type F90.0 and Primary insomnia F51.01 [place] [address] [place] [id number] [address] [place] [address] Nov, ADHD, predominantly inattent randall type F90.0 [place] [address] [place] [id number] [address] [place] [phone] Oct, ADHD, predominantly inattent rnadall type F90.0 [place] [address] [place] [id number] [address] [place] [phone] Oct, ADHD, predominantly inattent randall type F90.0 ; Primary insomnia F51.01 and Screening, lipid Z13.220 [place] [address] [place] [id number] [address] [place] [phone] Sep, ADHD, predominantly inattent randall type F90.0 [facility] [address] [place] [id number] [address] [place] [phone] Aug, ADHD, predominantly inattent randall type F90.0 and Primary insomnia F51.01 [facility] [address] [id number] [address] [place] [phone] Jul, ADHD, predominantly inattent randall type F90.0 [facility] [address] [id number] [address] [place] [address] Jul, Primary insomnia F51.01 and ADHD, predominantly inattentive type F90.0 [facility] [address] [id number] [address] [place] [phone] Jun, ADHD, predominantly inattent randall type F90.0 [facility] [address] [id number] [address] [place] [phone] May, ADHD, predominantly inattent randall type F90.0 [facility] [address] [id number] [address] [place] [address] Apr, ADHD, predominantly inattent randall type F90.0 [facility] [address] [id number] [address] [place] [phone] Mar, ADHD, predominantly inattent randall type F90.0 ; Primary insomnia F51.01 ; Major depressive disorder, recurrent episode, in full remission F33.42 and Acne comedone L70.0 [facility] [address] [id number] [address] [place] [phone] Mar, Major depressive disorder, r ecurrent episode, in full remission F33.42 and ADHD, predominantly inattentive type F90.0 [facility] [address] [id number] [address] [place] [phone] Feb, ADHD, predominantly inattent randall type F90.0 [facility] [address] [id number] [address] [place] [phone] Feb, Primary insomnia F51.01 [facility] [address] [id number] [address] [place] [phone] Jan, ADHD, predominantly inattent randall type F90.0 and Primary insomnia F51.01 [facility] [address] [facility] [id number] [address] [place] [phone] December, ADHD, predominantly inattent randall type F90.0 and Primary insomnia F51.01 [facility] [address] [facility] [id number] [address] [place] [phone] Oct, ADHD, predominantly inattent randall type F90.0 and Primary insomnia F51.01 [facility] [address] [facility] [id number] [address] [place] [id number] Sep, ADHD, predominantly inattent randall type F90.0 and Primary insomnia F51.01 [place] [address] [place] [id number] [address] [place] [phone] Aug, ADHD, predominantly inattent randall type F90.0 and Primary insomnia F51.01 [place] [address] [place] [id number] [place] [phone] Jul, Major depressive disorder, r ecurrent episode, in full remission F33.42 ; ADHD, predominantly inattentive type F90.0 ; Primary insomnia F51.01 ; Acute non-recurrent maxillary sinusitis J01.00 and Screening, lipid Z13.220 [facility] [address] [place] [id number] [address] [place] [phone] Jun, Acute non-recurrent maxillar y sinusitis J01.00 [place] [address] [place] [id number] [address] [place] [phone] Jun, ADHD, predominantly inattent randall type F90.0 [facility] [address] [facility] [id number] [address] [place] [phone] May, [facility] [address] [place] [id number] [address] [place] [id number] Apr, [facility] [address] [facility] [id number] [address] [place] [phone] Feb, Rash R21 and Scabies B86 [facility] [address] [place] [id number] [place] [phone] Feb, ADHD, predominantly inattent randall type F90.0 and Major depressive disorder, recurrent episode, in full remission F33.42 [facility] [address] [id number] [address] [place] [phone] 05 Feb, 2016 [facility] [address] [id number] [address] [place] [phone] Oct, [facility] [address] [id number] [address] [place] [phone] Sep, [facility] [address] [id number] [address] [place] [phone] Sep, [facility] [address] [id number] [address] [place] [phone] Aug, [facility] [address] [id number] [address] [place] [phone] Jul, [facility] [address] [id number] [address] [place] [phone] Jun, [facility] [address] [id number] [address] [place] [phone] May, [facility] [address] [id number] [address] [place] [phone] May, ADHD, predominantly inattent randall type F90.0 and Major depressive disorder, recurrent episode, in full remission F33.42 [facility] [address] [id number] [address] [place] [id number] Feb, Major depressive disorder, r ecurrent episode, moderate 296.32 [facility] [address] [id number] [address] [place] [phone] Feb, [facility] [address] [id number] [address] [place] [phone] Jan, [facility] [address] [id number] [address] [place] [phone] Jan, [facility] [address] [id number] [address] [place] [address], [place] [address] December, [facility] [address] [id number] [address] [place] [address], [place] [address] Nov, [facility] [address] [id number] [address] [place] [address], [place] [address] Nov, [facility] [address] [id number] [address] [place] [address], [place] [address] Oct, [facility] [address] [id number] [address] [place] [address], [place] [address] Oct, [facility] [address] [id number] [address] [place] [address], [place] [address] Sep, [facility] [address] [id number] [address] [place] [address], [place] [address] Sep, [facility] [address] [id number] [address] [place] [address], [place] [address] Sep, [facility] [address] [id number] [address] [place] [address], [place] [address] Sep, [facility] [address] [id number] [address] [place] [address], [place] [address] Aug, [facility] [address] [id number] [address] [place] [address], [place] [address] Aug, [facility] [address] [id number] [address] [place] [address], [place] [address] Aug, [facility] [address] [id number] [address] [place] [address], [place] [address] Aug, [facility] [address] [id number] [address] [place] [address], [place] [address] Aug, [facility] [address] [id number] [address] [place] [address], [place] [address] Aug, [facility] [address] [id number] [address] [place] [address], [place] [address] Jul, [facility] [address] [id number] [address] [place] [address], [place] [address] Jul, [facility] [address] [id number] [address] [place] [address], [place] [address] Jun, [facility] [address] [id number] [address] [place] [address], [place] [address] Jun, [facility] [address] [id number] [address] [place] [address], [place] [address] May, [facility] [address] [id number] [address] [place] [address], [place] [address] May, [facility] [address] [id number] [address] [place] [address], [place] [address] Apr, [facility] [address] [id number] [address] [place] [address], [place] [address] Apr, [facility] [address] [id number] [address] [place] [address], [place] [address] Apr, [facility] [address] [id number] [address] [place] [address], [place] [address] Mar, [facility] [address] [id number] [address] [place] [address], [place] [address] Mar, [facility] [address] [id number] [address] [place] [address], [place] [address] Mar, [facility] [address] [id number] [address] [place] [address], [place] [address] Mar, [facility] [address] [id number] [address] [place] [address], [place] [address] Feb, [facility] [address] [id number] [address] [place] [address], [place] [address] Feb, [facility] [address] [id number] [address] [place] [address], [place] [address] Feb, [facility] [address] [id number] [address] [place] [address], [place] [address] Feb, [facility] [address] [id number] [address] [place] [address], [place] [address] Feb, [facility] [address] [id number] [address] [place] [address], [place] [address] Feb, [facility] [address] [id number] [address] [place] [address], [place] [address] Jan, [facility] [address] [id number] [address] [place] [address], [place] [address] Jan, [facility] [address] [id number] [address] [place] [address], [place] [address] Jan, [facility] [address] [id number] [address] [place] [address], [place] [address] Jan, [facility] [address] [id number] [address] [place] [address], [place] [address] December, [facility] [address] [id number] [address] [place] [address], [place] [address] December, [facility] [address] [id number] [address] [place] [address], [place] [address] December, [facility] [address] [id number] [address] [place] [address], [place] [address] December, [facility] [address] [id number] [address] [place] [address], [place] [address] December, [facility] [address] [id number] [address] [place] [address], [place] [address] December, [facility] [address] [id number] [address] [place] [address], [place] [address] December, [facility] [address] [id number] [address] [place] [address], [place] [address] December, [facility] [address] [id number] [address] [place] [address], [place] [address] December, [facility] [address] [id number] [address] [place] [address], [place] [address] December, [facility] [address] [id number] [address] [place] [address], [place] [address] Nov, [facility] [address] [id number] [address] [place] [address], [place] [address] Nov, [facility] [address] [id number] [address] [place] [address], [place] [address] Oct, [facility] [address] [id number] [address] [place] [address], [place] [address] Oct, [facility] [address] [id number] [address] [place] [address], [place] [address] Oct, [facility] [address] [id number] [address] [place] [address], [place] [address] Oct, [facility] [address] [id number] [address] [place] [address], [place] [address] Oct, [facility] [address] [id number] [address] [place] [address], [place] [address] Oct, [facility] [address] [id number] [address] [place] [address], [place] [address] Aug, [facility] [address] [id number] [address] [place] [address], [place] [address] Aug, [facility] [address] [id number] [address] [place] [address], [place] [address] Aug, [facility] [address] [id number] [address] [place] [address], [place] [address] Aug, [facility] [address] [id number] [address] [place] [address], [place] [address] Aug, [facility] [address] [id number] [address] [place] [address], [place] [address] Aug, [facility] [address] [id number] [address] [place] [address], [place] [address] Aug, [facility] [address] [id number] [address] [place] [address], [place] [address] Aug, [facility] [address] [id number] [address] [place] [address], [place] [address] Jul, [facility] [address] [id number] [address] [place] [address], [place] [address] Jul, [facility] [address] [id number] [address] [place] [address], [place] [address] Jun, [facility] [address] [id number] [address] [place] [address], [place] [address] Jun, [facility] [address] [id number] [address] [place] [address], [place] [address] Jun, [facility] [address] [id number] [address] [place] [address], [place] [address] Jun, [facility] [address] [id number] [address] [place] [address], [place] [address] Jun, [facility] [address] [id number] [address] [place] [address], [place] [address] Jun, [facility] [address] [id number] [address] [place] [address], [place] [address] May, [facility] [address] [id number] [address] [place] [address], [place] [address] May, [facility] [address] [id number] [address] [place] [address], [place] [address] 16 Apr, 2013 [facility] [address] [id number] [address] [place] [address], [place] [address] Apr, [facility] [address] [id number] [address] [place] [address], [place] [address] Mar, [facility] [address] [id number] [address] [place] [address], [place] [address] Mar, [facility] [address] [id number] [address] [place] [address], [place] [address] Mar, [facility] [address] [id number] [address] [place] [address], [place] [id number] Feb, [facility] [address] [id number] [address] [place] [address], [place] [address] Jan, [facility] [address] [id number] [address] [place] [address], [place] [address] December, [facility] [address] [id number] [address] [place] [address], [place] [address] December, [facility] [address] [id number] [address] [place] [address], [place] [address] December, [facility] [address] [id number] [address] [place] [address], [place] [address] December, [facility] [address] [id number] [address] [place] [address], [place] [address] December, [facility] [address] [id number] [address] [place] [address], [place] [address] December, [facility] [address] [id number] [address] [place] [address], [place] [address] Nov, [facility] [address] [id number] [address] [place] [address], [place] [address] Nov, [facility] [address] [id number] [address] [place] [address], [place] [address] 08 Nov, 2012 [facility] [address] [id number] [address] [place] [address], [place] [address] Oct, [facility] [address] [id number] [address] [place] [address], [place] [address] Jun, [facility] [address] [id number] [address] [place] [address], [place] [address] Jun, [facility] [address] [id number] [address] [place] [address], [place] [address] Jun, [facility] [address] [id number] [address] [place] [address], [place] [address] Jun, [facility] [address] [id number] [address] [place] [address], [place] [address] Apr, [facility] [address] [id number] [address] [place] [address], [place] [address] Mar, [facility] [address] [id number] [address] [place] [address], [place] [address] Mar, [facility] [address] [id number] [address] [place] [address], [place] [address] Jan, [facility] [address] [id number] [address] [place] [address], [place] [address] December, [facility] [address] [id number] [address] [place] [address], [place] [address] 16 Nov, 2011 [facility] [address] [id number] [address] [place] [address], [place] [address] Nov, [facility] [address] [id number] [address] [place] [address], [place] [address] Nov, [facility] [address] [id number] [address] [place] [address], [place] [address] Nov, [facility] [address] [id number] [address] [place] [address], [place] [address] Aug, [facility] [address] [id number] [address] [place] [address], [place] [address] Aug, [facility] [address] [id number] [address] [place] [address], [place] [address] Jul, [facility] [address] [id number] [address] [place] [address], [place] [address] Jun, [facility] [address] [id number] [address] [place] [address], [place] [address] Jun, [facility] [address] [facility] [id number] [address] [place] [address] Apr, [facility] [address] [facility] [id number] [address] [place] [address] Feb, IMMUNIZATIONS No Known Immunizations SOCIAL HISTORY Never Assessed REASON FOR VISIT PLAN OF CARE VITAL SIGNS Height 64 in 2014-02-28 Weight 159.25 lbs 2014-02-28 Temperature 98 degrees Fahrenheit 2014-02-28 Heart Rate 80 bpm 2014-02-28 Respiratory Rate 24 2014-02-28 Blood pressure systolic 122 mmHg 2014-02-28 Blood pressure diastolic 80 mmHg 2014-02-28 MEDICATIONS Unknown Medications RESULTS No Results PROCEDURES No Known procedures INSTRUCTIONS MEDICATIONS ADMINISTERED No Known Medications MEDICAL (GENERAL) HISTORY Type Description Date Medical History Hypertension Medical History ADHD Medical History depression Medical History anxiety Surgical History section Surgical History collar bone repair
--- OUTSIDE RECORDS SUMMARY | 2020-02-11 01:29 | XMS REPORT ---
Author Author Elaine GALARZA Organization [facility] Address [address] [place] [address] Care Team Providers Care Crm Marketing Specialist Name Role Phone MARI GALARZA Unavailable PROBLEMS Type Condition ICD9-CM Code TOW71-YS Code Onset Dates Condition S tatus SNOMED Code Problem ADHD, predominantly inattentive type F90.0 Active 56663785 Problem Primary insomnia F51.01 Active 397 2004 Problem Essential hypertension I10 Active 54040132 Problem Non-seasonal allergic rhinitis due to pollen J30.1 Active 06586280 Problem Major depressive disorder, recurrent episode, in full remission F33.42 Active 546436176 Problem Severe episode of recurrent major depressive disorder, without psychotic features F33.2 Active 31183409 Problem Seasonal allergies J30.2 Active 4 83620191 Problem Moderate episode of recurrent major depressive disorder F33.1 Active 798995270 Problem Intractable migraine without aura and with status migr ainosus G43.011 Active 710029974 Problem Migraine without aura and without status migrain osus, not intractable G43.009 Active [id number] ALLERGIES No Information ENCOUNTERS Encounter Location Date Diagnosis [place] [address] [address] Aug, ADHD, predominantly inattentive type F90 .0 [place] [address] [address] Jul, ADHD, predominantly inattentive type F90 .0 [place] [address] [address] Jun, ADHD, predominantly inattentive type F90 .0 ; Moderate episode of recurrent major depressive disorder F33.1 and Intractable migraine without aura and with status migrainosus G43.011 [place] [address] [address] May, Severe episode of recurrent major depres sive disorder, without psychotic features F33.2 [facility] [address] [place] [id number] [place] [address] May, [facility] [address] [address] Apr, [facility] [address] [address] Mar, Moderate episode of recurrent major depr essive disorder F33.1 [facility] [address] [address] Mar, [facility] [address] [address] Feb, [facility] [address] [address] Feb, [facility] [address] [address] Jan, Major depressive disorder, recurrent epi sode, in full remission F33.42 [facility] [address] [address] Jan, Moderate episode of recurrent major depr essive disorder F33.1 ; Non- seasonal allergic rhinitis due to pollen J30.1 ; Migraine without aura and without status migrainosus, not intractable G43.009 and Sinus congestion R09.81 [facility] [address] [address] Jan, [facility] [address] [address] December, Moderate episode of recurrent major depr essive disorder F33.1 [facility] [address] [address] December, [facility] [address] [address] December, Moderate episode of recurrent major depr essive disorder F33.1 [facility] [address] [address] Nov, Moderate episode of recurrent major depr essive disorder F33.1 and Intractable migraine without aura and with status migrainosus G43.011 [facility] [address] [address] Nov, [facility] [address] [address] Oct, Major depressive disorder, recurrent epi sode, in full remission F33.42 ; Intractable migraine without aura and with status migrainosus G43.011 ; Weight gain R63.5 ; Vision changes H53.9 and 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 [place] [address] [address] Oct, Encounter for pre-employment examination Z02.1 [place] [address] [address] Oct, [facility] [address] [facility] [id number] [place] [address] 20 Sep, 2018 Acute non-recurrent maxillar y sinusitis J01.00 [place] [address] [address] 14 Sep, 2018 [facility] [address] [address] Aug, [place] [address] [address] Jul, ADHD, predominantly inattentive type F90 .0 and Primary insomnia F51.01 [place] [address] [address] Jun, ADHD, predominantly inattentive type F90 .0 [place] [address] [address] May, ADHD, predominantly inattentive type F90 .0 ; Moderate episode of recurrent major depressive disorder F33.1 and Therapeutic drug monitoring Z51.81 [place] [address] [address] May, [place] [address] [address] Apr, ADHD, predominantly inattentive type F90 .0 [place] [address] [address] Apr, ADHD, predominantly inattentive type F90 .0 and Major depressive disorder, recurrent episode, in full remission F33.42 [place] [address] [address] Mar, ADHD, predominantly inattentive type F90 .0 and Primary insomnia F51.01 [place] [address] [address] Mar, [place] [address] [address] Mar, ADHD, predominantly inattentive type F90 .0 and Primary insomnia F51.01 [place] [address] [address] Feb, ADHD, predominantly inattentive type F90 .0 and Primary insomnia F51.01 [place] [address] [address] Jan, ADHD, predominantly inattentive type F90 .0 and Primary insomnia F51.01 [facility] [address] [facility] [id number] [address] [place] [address] December, Seasonal allergies J30.2 and Post-nasal drip R09.82 [place] [address] [address] December, ADHD, predominantly inattentive type F90 .0 and Primary insomnia F51.01 [place] [address] [address] Nov, ADHD, predominantly inattentive type F90 .0 [place] [address] [address] Oct, ADHD, predominantly inattentive type F90 .0 [facility] [address] [address] Oct, ADHD, predominantly inattentive type F90 .0 ; Primary insomnia F51.01 and Screening, lipid Z13.220 [facility] [address] [address] Sep, ADHD, predominantly inattentive type F90 .0 [facility] [address] [address] Aug, ADHD, predominantly inattentive type F90 .0 and Primary insomnia F51.01 [facility] [address] [address] Jul, ADHD, predominantly inattentive type F90 .0 [facility] [address] [address] Jul, Primary insomnia F51.01 and ADHD, predom inantly inattentive type F90.0 [facility] [address] [address] Jun, ADHD, predominantly inattentive type F90 .0 [facility] [address] [address] May, ADHD, predominantly inattentive type F90 .0 [facility] [address] [address] Apr, ADHD, predominantly inattentive type F90 .0 [facility] [address] [address] Mar, ADHD, predominantly inattentive type F90 .0 ; Primary insomnia F51.01 ; Major depressive disorder, recurrent episode, in full remission F33.42 and Acne comedone L70.0 [facility] [address] [address] Mar, Major depressive disorder, recurrent epi sode, in full remission F33.42 and ADHD, predominantly inattentive type F90.0 [facility] [address] [address] Feb, ADHD, predominantly inattentive type F90 .0 [place] [address] [address] Feb, Primary insomnia F51.01 [facility] [address] [address] Jan, ADHD, predominantly inattentive type F90 .0 and Primary insomnia F51.01 [place] [address] [address] December, ADHD, predominantly inattentive type F90 .0 and Primary insomnia F51.01 [place] [address] [address] Oct, ADHD, predominantly inattentive type F90 .0 and Primary insomnia F51.01 [place] [address] [address] Sep, ADHD, predominantly inattentive type F90 .0 and Primary insomnia F51.01 [place] [address] [address] Aug, ADHD, predominantly inattentive type F90 .0 and Primary insomnia F51.01 [place] [address] [address] Jul, Major depressive disorder, recurrent epi sode, in full remission F33.42 ; ADHD, predominantly inattentive type F90.0 ; Primary insomnia F51.01 ; Acute non-recurrent maxillary sinusitis J01.00 and Screening, lipid Z13.220 [facility] [address] [facility] [id number] [address] [address] Jun, Acute non-recurrent maxillar y sinusitis J01.00 [facility] [address] [address] Jun, ADHD, predominantly inattentive type F90 .0 [facility] [address] [address] May, [facility] [address] [id number] [place] [address] Apr, [facility] [address] [facility] [id number] [address] [place] [address] Feb, 2016 Rash R21 and Scabies B86 [facility] [address] [id number] [place] [address] Feb, ADHD, predominantly inattentive type F90 .0 and Major depressive disorder, recurrent episode, in full remission F33.42 [facility] [address] [place] [id number] [place] [address] Feb, [facility] [address] [address] Oct, [facility] [address] [id number] [place] [address] Sep, [facility] [address] [address] Sep, [facility] [address] [place] [id number] [place] [address] Aug, [facility] [address] [place] [id number] [place] [address] Jul, [facility] [address] [place] [id number] [place] [address] Jun, [facility] [address] [place] [id number] [place] [address] May, [facility] [address] [place] [id number] [place] [address] May, ADHD, predominantly inattentive type F90 .0 and Major depressive disorder, recurrent episode, in full remission F33.42 [facility] [address] [place] [id number] [place] [address] Feb, Major depressive disorder, recurrent epi sode, moderate 296.32 [facility] [address] [address] Feb, [facility] [address] [id number] [place] [address] Jan, [facility] [address] [id number] [place] [address] Jan, [facility] [address] [id number] [place] [address] December, [facility] [address] [id number] [place] [address] Nov, [facility] [address] [id number] [place] [address] Nov, [facility] [address] [id number] [place] [address] Oct, [facility] [address] [id number] [place] [address] Oct, [facility] [address] [id number] [place] [address] Sep, [facility] [address] [id number] [place] [address] Sep, [facility] [address] [id number] [place] [address] Sep, [facility] [address] [id number] [place] [address] Sep, [facility] [address] [id number] [place] [address] Aug, [facility] [address] [id number] [place] [address] Aug, [facility] [address] [id number] [place] [address] Aug, [facility] [address] [id number] [place] [address] Aug, [facility] [address] [id number] [place] [address] Aug, [facility] [address] [id number] [place] [address] Aug, [facility] [address] [facility] [id number] [facility] [address] Jul, [facility] [address] [id number] [place] [address] Jul, [facility] [address] [id number] [place] [address] Jun, [facility] [address] [id number] [place] [address] Jun, [facility] [address] [id number] [place] [address] May, [facility] [address] [id number] [place] [address] May, [facility] [address] [id number] [place] [address] Apr, [facility] [address] [id number] [place] [address] Apr, [facility] [address] [id number] [place] [address] Apr, [facility] [address] [id number] [place] [address] Mar, [facility] [address] [id number] [place] [address] Mar, [facility] [address] [id number] [place] [address] Mar, [facility] [address] [id number] [place] [address] Mar, [facility] [address] [id number] [place] [address] Feb, [facility] [address] [id number] [place] [address] Feb, [facility] [address] [id number] [place] [address] Feb, [facility] [address] [facility] [id number] [place] [address] Feb, [facility] [address] [facility] [id number] [place] [address] Feb, [facility] [address] [facility] [id number] [place] [address] Feb, [facility] [address] [id number] [place] [address] Jan, [facility] [address] [facility] [id number] [place] [address] Jan, [facility] [address] [id number] [place] [address] Jan, [facility] [address] [id number] [place] [address] Jan, [facility] [address] [id number] [place] [address] December, [facility] [address] [id number] [place] [address] December, [facility] [address] [id number] [place] [address] December, [facility] [address] [id number] [place] [address] December, [facility] [address] [id number] [place] [address] December, [facility] [address] [id number] [place] [address] December, [facility] [address] [id number] [place] [address] December, [facility] [address] [id number] [place] [address] December, [facility] [address] [id number] [place] [address] December, [facility] [address] [id number] [place] [address] December, [facility] [address] [facility] [id number] [place] [address] Nov, [facility] [address] [facility] [id number] [place] [address] Nov, [facility] [address] [id number] [place] [address] Oct, [facility] [address] [id number] [place] [address] Oct, [facility] [address] [facility] [id number] [place] [address] Oct, [facility] [address] [id number] [place] [address] Oct, [facility] [address] [id number] [place] [address] Oct, [facility] [address] [id number] [place] [address] Oct, [facility] [address] [id number] [place] [address] Aug, [facility] [address] [id number] [place] [address] Aug, [facility] [address] [id number] [place] [address] Aug, [facility] [address] [id number] [place] [address] Aug, [facility] [address] [id number] [place] [address] Aug, [facility] [address] [id number] [place] [address] Aug, [facility] [address] [id number] [place] [address] Aug, [facility] [address] [id number] [place] [address] Aug, [facility] [address] [id number] [place] [address] 05 Jul, 2013 [facility] [address] [id number] [place] [address] Jul, [facility] [address] [id number] [place] [address] Jun, [facility] [address] [id number] [place] [address] Jun, [facility] [address] [id number] [place] [address] Jun, [facility] [address] [id number] [place] [address] Jun, [facility] [address] [id number] [place] [address] Jun, [facility] [address] [id number] [place] [address] Jun, [facility] [address] [id number] [place] [address] May, [facility] [address] [id number] [place] [address] May, [facility] [address] [id number] [place] [address] Apr, [facility] [address] [id number] [place] [address] Apr, [facility] [address] [id number] [place] [address] Mar, [facility] [address] [id number] [place] [address] Mar, [facility] [address] [id number] [place] [address] Mar, [facility] [address] [id number] [place] [address] Feb, [facility] [address] [id number] [place] [address] Jan, [facility] [address] [id number] [place] [address] December, [facility] [address] [id number] [place] [address] December, [facility] [address] [id number] [place] [address] December, [facility] [address] [id number] [place] [address] December, [facility] [address] [id number] [place] [address] December, [facility] [address] [id number] [place] [address] December, [facility] [address] [id number] [place] [address] Nov, [facility] [address] [id number] [place] [address] Nov, [facility] [address] [id number] [place] [address] Nov, [facility] [address] [id number] [place] [address] Oct, [facility] [address] [id number] [place] [address] Jun, [facility] [address] [id number] [place] [address] 14 Jun, 2012 [facility] [address] [id number] [place] [address] Jun, [facility] [address] [id number] [place] [address] Jun, [facility] [address] [id number] [place] [address] Apr, [facility] [address] [id number] [place] [address] Mar, [facility] [address] [id number] [place] [address] Mar, [facility] [address] [id number] [place] [address] Jan, [facility] [address] [id number] [place] [address] December, [facility] [address] [id number] [place] [address] Nov, [facility] [id number] [place] [address] Nov, [facility] [address] [id number] [place] [address] Nov, [facility] [id number] [place] [address] Nov, [facility] [address] [id number] [place] [address] Aug, [facility] [id number] [place] [address] Aug, [facility] [address] [id number] [place] [address] Jul, [facility] [id number] [place] [address] Jun, [facility] [address] [id number] [place] [address] Jun, [facility] [address] [id number] [place] [address] Apr, [facility] [address] [id number] [place] [address] Feb, IMMUNIZATIONS No Known Immunizations SOCIAL HISTORY [...]
--- OUTSIDE RECORDS SUMMARY | 2020-02-11 01:29 | XMS REPORT ---
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 [employer] Name Role Phone MARI GALARZA Unavailable PROBLEMS Type Condition ICD9-CM Code [id number] Code Onset Dates Condition S tatus SNOMED Code Problem Major depressive disorder, recurrent episode, in full remission F33.42 Active 463734240 Problem ADHD, predominantly inattentive type F90.0 Active 51243319 Problem Primary insomnia F51.01 Active 397 2004 Problem Non-seasonal allergic rhinitis due to pollen J30.1 Active 55926861 Problem Migraine without aura and without status migrain osus, not intractable G43.009 Active 015108960 Problem Essential hypertension I10 Active 98279099 Problem Seasonal allergies J30.2 Active 4 26512153 Problem Moderate episode of recurrent major depressive disorder F33.1 Active 869215661 Problem Intractable migraine without aura and with status migr ainosus G43.011 Active 602107990 ALLERGIES No Information ENCOUNTERS Encounter Location Date Diagnosis [facility] [address] [facility] [id number] [address] [place] [address] May, [facility] [address] [facility] [id number] [address] [place] [address] Apr, [facility] [address] [facility] [id number] [address] [place] [address] Mar, Moderate episode of recurren t major depressive disorder F33.1 [facility] [address] [facility] [id number] [address] [place] [address] Mar, [facility] [address] [facility] [id number] [address] [place] [address] Feb, [facility] [address] [place] [id number] [address] [place] [address] Feb, [facility] [address] [id number] [address] [place] [address] Jan, Major depressive disorder, r ecurrent episode, in full remission F33.42 [facility] [address] [id number] [address] [place] [address] Jan, Moderate episode of recurren t major depressive disorder F33.1 ; Non-seasonal allergic rhinitis due to pollen J30.1 ; Migraine without aura and without status migrainosus, not intractable G43.009 and Sinus congestion R09.81 [facility] [address] [id number] [address] [place] [address] Jan, [place] [address] [id number] [address] [place] [id number] December, Moderate episode of recurren t major depressive disorder F33.1 [place] [address] [id number] [address] [place] [address] December, [facility] [address] [id number] [address] [place] [address] December, Moderate episode of recurren t major depressive disorder F33.1 [facility] [address] [id number] [address] [place] [address] Nov, Moderate episode of recurren t major depressive disorder F33.1 and Intractable migraine without aura and with status migrainosus G43.011 [place] [address] [id number] [address] [place] [address] Nov, [facility] [address] [id number] [address] [place] [address] Oct, Major depressive disorder, r ecurrent episode, in full remission F33.42 ; Intractable migraine without aura and with status migrainosus G43.011 ; Weight gain R63.5 ; Vision changes H53.9 and Other mcfp (current) drug therapy Z79.899 [place] [address] [id number] [address] [place] [address] Oct, Encounter for pre-employment examination Z02.1 [facility] [address] [id number] [address] [place] [address] Oct, [facility] [address] [id number] [address] [place] [address] 20 Sep, 2018 Acute non-recurrent maxillar y sinusitis J01.00 [facility] [address] [id number] [address] [place] [address] 14 Sep, 2018 [facility] [address] [id number] [address] [place] [address] Aug, [facility] [address] [facility] [id number] [address] [place] [address] Jul, ADHD, predominantly inattent randall type F90.0 and Primary insomnia F51.01 [facility] [address] [facility] [id number] [address] [place] [address] Jun, ADHD, predominantly inattent randall type F90.0 [facility] [address] [facility] [id number] [address] [place] [address] May, ADHD, predominantly inattent randall type F90.0 ; Moderate episode of recurrent major depressive disorder F33.1 and Therapeutic drug monitoring Z51.81 [place] [address] [facility] [id number] [address] [place] [address] May, [facility] [address] [facility] [id number] [address] [place] [address] Apr, ADHD, predominantly inattent randall type F90.0 [place] [address] [facility] [id number] [address] [place] [address] Apr, ADHD, predominantly inattent randall type F90.0 and Major depressive disorder, recurrent episode, in full remission F33.42 [facility] [address] [facility] [id number] [address] [place] [address] Mar, ADHD, predominantly inattent randall type F90.0 and Primary insomnia F51.01 [facility] [address] [id number] [address] [place] [address] Mar, [facility] [address] [facility] [id number] [address] [place] [address] Mar, ADHD, predominantly inattent randall type F90.0 and Primary insomnia F51.01 [facility] [address] [facility] [id number] [address] [place] [address] Feb, ADHD, predominantly inattent randall type F90.0 and Primary insomnia F51.01 [place] [address] [facility] [id number] [address] [place] [address] Jan, ADHD, predominantly inattent randall type F90.0 and Primary insomnia F51.01 [facility] [address] [facility] [id number] [address] [place] [address] December, Seasonal allergies J30.2 and Post-nasal drip R09.82 [facility] [address] [facility] [id number] [address] [place] [address] December, ADHD, predominantly inattent randall type F90.0 and Primary insomnia F51.01 [facility] [address] [facility] [id number] [address] [place] [address] Nov, ADHD, predominantly inattent randall type F90.0 [facility] [address] [facility] [id number] [address] [place] [address] Oct, ADHD, predominantly inattent randall type F90.0 [facility] [address] [facility] [id number] [address] [place] [address] Oct, ADHD, predominantly inattent randall type F90.0 ; Primary insomnia F51.01 and Screening, lipid Z13.220 [facility] [address] [facility] [id number] [address] [place] [address] Sep, ADHD, predominantly inattent randall type F90.0 [place] [address] [id number] [address] [place] [address] Aug, ADHD, predominantly inattent randall type F90.0 and Primary insomnia F51.01 [facility] [address] [id number] [address] [place] [address] Jul, ADHD, predominantly inattent randall type F90.0 [facility] [address] [id number] [address] [place] [address] Jul, Primary insomnia F51.01 and ADHD, predominantly inattentive type F90.0 [facility] [address] [id number] [address] [place] [address] Jun, ADHD, predominantly inattent randall type F90.0 [facility] [address] [id number] [address] [place] [address] May, ADHD, predominantly inattent randall type F90.0 [facility] [address] [id number] [address] [place] [address] Apr, ADHD, predominantly inattent randall type F90.0 [facility] [address] [id number] [address] [place] [address] Mar, ADHD, predominantly inattent randall type F90.0 ; Primary insomnia F51.01 ; Major depressive disorder, recurrent episode, in full remission F33.42 and Acne comedone L70.0 [facility] [address] [id number] [address] [place] [address] Mar, Major depressive disorder, r ecurrent episode, in full remission F33.42 and ADHD, predominantly inattentive type F90.0 [facility] [address] [id number] [address] [place] [address] Feb, ADHD, predominantly inattent randall type F90.0 [facility] [address] [id number] [address] [place] [address] Feb, Primary insomnia F51.01 [facility] [address] [id number] [address] [place] [address] Jan, ADHD, predominantly inattent randall type F90.0 and Primary insomnia F51.01 [place] [address] [facility] [id number] [address] [place] [address] December, ADHD, predominantly inattent randall type F90.0 and Primary insomnia F51.01 [place] [address] [facility] [id number] [address] [place] [address] Oct, ADHD, predominantly inattent randall type F90.0 and Primary insomnia F51.01 [place] [address] [facility] [id number] [address] [place] [address] Sep, ADHD, predominantly inattent randall type F90.0 and Primary insomnia F51.01 [place] [address] [facility] [id number] [address] [place] [address] Aug, ADHD, predominantly inattent randall type F90.0 and Primary insomnia F51.01 [place] [address] [facility] [id number] [address] [place] [address] Jul, Major depressive disorder, r ecurrent episode, in full remission F33.42 ; ADHD, predominantly inattentive type F90.0 ; Primary insomnia F51.01 ; Acute non-recurrent maxillary sinusitis J01.00 and Screening, lipid Z13.220 [facility] [address] [facility] [id number] [address] [place] [address] Jun, Acute non-recurrent maxillar y sinusitis J01.00 [facility] [address] [id number] [address] [place] [address] Jun, ADHD, predominantly inattent randall type F90.0 [place] [address] [facility] [id number] [address] [place] [address] May, [facility] [address] [id number] [address] [place] [phone] 07 Apr, 2016 [facility] [address] [facility] [id number] [address] [place] [address] Feb, 2016 Rash R21 and Scabies B86 [facility] [address] [id number] [address] [place] [address] Feb, ADHD, predominantly inattent randall type F90.0 and Major depressive disorder, recurrent episode, in full remission F33.42 [facility] [address] [id number] [address] [place] [address] Feb, [facility] [address] [id number] [address] [place] [phone] Oct, [facility] [address] [id number] [address] [place] [address] Sep, [facility] [address] [id number] [address] [place] [address] Sep, [facility] [address] [id number] [address] [place] [address] Aug, [facility] [address] [id number] [address] [place] [phone] Jul, [facility] [address] [id number] [address] [place] [address] Jun, [facility] [address] [id number] [address] [place] [address] May, [facility] [address] [id number] [address] [place] [address] May, ADHD, predominantly inattent randall type F90.0 and Major depressive disorder, recurrent episode, in full remission F33.42 [facility] [address] [id number] [address] [place] [address] Feb, Major depressive disorder, r ecurrent episode, moderate 296.32 [facility] [address] [id number] [address] [place] [address] Feb, [facility] [address] [id number] [address] [place] [phone] Jan, [facility] [address] [id number] [address] [place] [address], [place] [address] Jan, [facility] [address] [id number] [address] [place] [address], [place] [address] December, [facility] [address] [id number] [address] [place] [address], [place] [address] Nov, [facility] [address] [id number] [address] [place] [address], [place] [address] Nov, [facility] [address] [id number] [address] [place] [address], [place] [address] Oct, [facility] [address] [id number] [address] [place] [address], [place] [address] Oct, [facility] [address] [id number] [address] [place] [address], [place] [address] Sep, [facility] [address] [id number] [address] [place] [address], [place] [address] Sep, [facility] [address] [id number] [address] [place] [address], [place] [address] Sep, [facility] [address] [id number] [address] [place] [address], [place] [address] Sep, [facility] [address] [id number] [address] [place] [address], [place] [address] Aug, [facility] [address] [id number] [address] [place] [address], [place] [address] Aug, [facility] [address] [id number] [address] [place] [address], [place] [address] Aug, [facility] [address] [id number] [address] [place] [address], [place] [address] Aug, [facility] [address] [id number] [address] [place] [address], [place] [address] Aug, [facility] [address] [id number] [address] [place] [address], [place] [address] Aug, [facility] [address] [id number] [address] [place] [address], [place] [address] Jul, [facility] [address] [id number] [address] [place] [address], [place] [address] Jul, [facility] [address] [id number] [address] [place] [address], [place] [address] Jun, [facility] [address] [id number] [address] [place] [address], [place] [address] Jun, [facility] [address] [id number] [address] [place] [address], [place] [address] May, [facility] [address] [id number] [address] [place] [address], [place] [address] May, [facility] [address] [id number] [address] [place] [address], [place] [address] Apr, [facility] [address] [id number] [address] [place] [address], [place] [address] Apr, [facility] [address] [id number] [address] [place] [address], [place] [address] Apr, [facility] [address] [id number] [address] [place] [address], [place] [address] Mar, [facility] [address] [id number] [address] [place] [address], [place] [address] Mar, [facility] [address] [id number] [address] [place] [address], [place] [address] Mar, [facility] [address] [id number] [address] [place] [address], [place] [address] Mar, [facility] [address] [id number] [address] [place] [address], [place] [address] Feb, [facility] [address] [id number] [address] [place] [address], [place] [address] Feb, [facility] [address] [id number] [address] [place] [address], [place] [address] Feb, [facility] [address] [id number] [address] [place] [address], [place] [address] Feb, [facility] [address] [id number] [address] [place] [address], [place] [address] Feb, [facility] [address] [id number] [address] [place] [address], [place] [address] Feb, [facility] [address] [id number] [address] [place] [address], [place] [address] Jan, [facility] [address] [id number] [address] [place] [address], [place] [address] Jan, [facility] [address] [id number] [address] [place] [address], [place] [address] Jan, [facility] [address] [id number] [address] [place] [address], [place] [address] Jan, [facility] [address] [id number] [address] [place] [address], [place] [address] December, [facility] [address] [id number] [address] [place] [address], [place] [address] December, [facility] [address] [id number] [address] [place] [address], [place] [address] December, [facility] [address] [id number] [address] [place] [address], [place] [address] December, [facility] [address] [id number] [address] [place] [address], [place] [address] December, [facility] [address] [id number] [address] [place] [address], [place] [address] December, [facility] [address] [id number] [address] [place] [address], [place] [address] December, [facility] [address] [id number] [address] [place] [address], [place] [address] December, [facility] [address] [id number] [facility] [place] [address] December, [facility] [address] [id number] [address] [place] [address], [place] [address] December, [facility] [address] [id number] [address] [place] [address], [place] [address] Nov, [facility] [address] [id number] [address] [place] [address], [place] [address] Nov, [facility] [address] [id number] [address] [place] [address], [place] [address] Oct, [facility] [address] [id number] [address] [place] [address], [place] [address] Oct, [facility] [address] [id number] [address] [place] [address], [place] [address] Oct, [facility] [address] [id number] [address] [place] [address], [place] [address] Oct, [facility] [address] [id number] [address] [place] [address], [place] [address] Oct, [facility] [address] [id number] [address] [place] [address], [place] [address] Oct, [facility] [address] [id number] [address] [place] [address], [place] [address] Aug, [facility] [address] [id number] [address] [place] [address], [place] [address] Aug, [facility] [address] [id number] [address] [place] [address], [place] [address] Aug, [facility] [address] [id number] [address] [place] [address], [place] [address] Aug, [facility] [address] [id number] [address] [place] [address], [place] [address] Aug, [facility] [address] [id number] [address] [place] [address], [place] [address] Aug, [facility] [address] [id number] [address] [place] [address], [place] [address] Aug, [facility] [address] [id number] [address] [place] [address], [place] [address] Aug, [facility] [address] [id number] [address] [place] [address], [place] [address] Jul, [facility] [address] [id number] [address] [place] [address], [place] [address] Jul, [facility] [address] [id number] [address] [place] [address], [place] [address] Jun, [facility] [address] [id number] [address] [place] [address], [place] [address] Jun, [facility] [address] [id number] [address] [place] [address], [place] [address] Jun, [facility] [address] [id number] [address] [place] [address], [place] [address] Jun, [facility] [address] [id number] [address] [place] [address], [place] [address] Jun, [facility] [address] [id number] [address] [place] [address], [place] [address] Jun, [facility] [address] [id number] [address] [place] [address], [place] [address] May, [facility] [address] [id number] [address] [place] [address], [place] [address] May, [facility] [address] [id number] [address] [place] [address], [place] [address] 16 Apr, 2013 [facility] [address] [id number] [address] [place] [address], [place] [address] 12 Apr, 2013 [facility] [address] [id number] [address] [place] [address], [place] [address] Mar, [facility] [address] [id number] [address] [place] [address], [place] [address] Mar, [facility] [address] [id number] [address] [place] [address], [place] [address] Mar, [facility] [address] [id number] [address] [place] [address], [place] [address] Feb, [facility] [address] [id number] [address] [place] [address], [place] [address] Jan, [facility] [address] [id number] [address] [place] [address], [place] [address] December, [facility] [address] [id number] [address] [place] [address], [place] [address] December, [facility] [address] [id number] [address] [place] [address], [place] [address] December, [facility] [address] [id number] [address] [place] [address], [place] [address] December, [facility] [address] [id number] [address] [place] [address], [place] [address] December, [facility] [address] [id number] [address] [place] [address], [place] [address] December, [facility] [address] [id number] [address] [place] [address], [place] [address] Nov, [facility] [address] [id number] [address] [place] [address], [place] [address] Nov, [facility] [facility] [address] [id number] [address] [place] [address], [place] [address] Nov, [facility] [address] [id number] [address] [place] [address], [place] [address] 05 Oct, 2012 [facility] [address] [id number] [address] [place] [address], [place] [address] Jun, [facility] [address] [id number] [address] [place] [address], [place] [address] 14 Jun, 2012 [facility] [address] [id number] [address] [place] [address], [place] [address] Jun, [facility] [address] [id number] [address] [place] [address], [place] [address] Jun, [facility] [address] [id number] [address] [place] [address], [place] [address] Apr, [facility] [address] [id number] [address] [place] [address], [place] [address] Mar, [facility] [address] [id number] [address] [place] [address], [place] [address] Mar, [facility] [address] [id number] [address] [place] [address], [place] [address] Jan, [facility] [address] [id number] [address] [place] [address], [place] [address] December, [facility] [address] [id number] [address] [place] [address], [place] [address] Nov, [facility] [address] [id number] [address] [place] [address], [place] [address] Nov, [facility] [address] [id number] [address] [place] [address], [place] [address] Nov, [facility] [address] [id number] [address] [place] [address], [place] [address] Nov, [facility] [address] [id number] [address] [place] [address], [place] [address] Aug, [facility] [address] [id number] [address] [place] [address], [place] [address] Aug, [facility] [address] [id number] [address] [place] [address], [place] [address] Jul, [facility] [address] [id number] [address] [place] [address], [place] [address] Jun, [facility] [address] [facility] [id number] [address] [place] [address] Jun, [facility] [address] [facility] [id number] [address] [place] [address] Apr, [facility] [address] [facility] [id number] [address] [place] [id number] Feb, IMMUNIZATIONS No Known Immunizations SOCIAL HISTORY [...]
--- OUTSIDE RECORDS SUMMARY | 2020-02-11 01:29 | XMS REPORT ---
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 Name Role Phone SB TERESA Unavailable PROBLEMS Type Condition ICD9-CM Code RRB60-CF Code Onset Dates Condition S tatus SNOMED Code Problem Major depressive disorder, recurrent episode, in full remission F33.42 Active 983551676 Problem ADHD, predominantly inattentive type F90.0 Active 77922945 Problem Primary insomnia F51.01 Active 397 2004 Problem Non-seasonal allergic rhinitis due to pollen J30.1 Active 59347902 Problem Migraine without aura and without status migrain osus, not intractable G43.009 Active 202634008 Problem Essential hypertension I10 Active 55100439 Problem Seasonal allergies J30.2 Active 4 62756572 Problem Moderate episode of recurrent major depressive disorder F33.1 Active 508727917 Problem Intractable migraine without aura and with status migr ainosus G43.011 Active 486251149 ALLERGIES No Information ENCOUNTERS Encounter Location Date Diagnosis [facility] [address] [facility] [id number] [address] [place] [address] May, [facility] [address] [facility] [id number] [address] [place] [address] Apr, [facility] [address] [facility] [id number] [address] [place] [address] Mar, Moderate episode of recurren t major depressive disorder F33.1 [facility] [address] [facility] [id number] [address] [place] [address] Mar, [facility] [address] [facility] [id number] [address] [place] [address] Feb, [facility] [address] [facility] [id number] [address] [place] [address] Feb, [facility] [address] [id number] [address] [place] [address] Jan, Major depressive disorder, r ecurrent episode, in full remission F33.42 [facility] [address] [id number] [address] [place] [address] Jan, Moderate episode of recurren t major depressive disorder F33.1 ; Non-seasonal allergic rhinitis due to pollen J30.1 ; Migraine without aura and without status migrainosus, not intractable G43.009 and Sinus congestion R09.81 [place] [address] [id number] [address] [place] [address] Jan, [place] [address] [facility] [id number] [address] [place] [address] December, Moderate episode of recurren t major depressive disorder F33.1 [place] [address] [facility] [id number] [address] [place] [address] December, [place] [address] [id number] [address] [place] [address] December, Moderate episode of recurren t major depressive disorder F33.1 [place] [address] [facility] [id number] [address] [place] [address] Nov, Moderate episode of recurren t major depressive disorder F33.1 and Intractable migraine without aura and with status migrainosus G43.011 [place] [address] [id number] [address] [place] [address] Nov, [place] [address] [facility] [id number] [address] [place] [address] Oct, Major depressive disorder, r ecurrent episode, in full remission F33.42 ; Intractable migraine without aura and with status migrainosus G43.011 ; Weight gain R63.5 ; Vision changes H53.9 and Other long-term (current) drug therapy Z79.899 [place] [address] [facility] [id number] [address] [place] [address] 15 Oct, 2018 Encounter for pre-employment examination Z02.1 [facility] [address] [id number] [address] [place] [address] 15 Oct, 2018 [facility] [address] [id number] [address] [place] [address] 20 Sep, 2018 Acute non-recurrent maxillar y sinusitis J01.00 [facility] [address] [id number] [address] [place] [address] 14 Sep, 2018 [facility] [address] [id number] [address] [place] [address] Aug, [facility] [address] [id number] [address] [place] [address] Jul, ADHD, predominantly inattent randall type F90.0 and Primary insomnia F51.01 [facility] [address] [facility] [id number] [address] [place] [address] Jun, ADHD, predominantly inattent randall type F90.0 [facility] [address] [facility] [id number] [address] [place] [address] May, ADHD, predominantly inattent randall type F90.0 ; Moderate episode of recurrent major depressive disorder F33.1 and Therapeutic drug monitoring Z51.81 [facility] [address] [facility] [id number] [address] [place] [address] May, [facility] [address] [facility] [id number] [address] [place] [address] Apr, ADHD, predominantly inattent randall type F90.0 [facility] [address] [id number] [address] [place] [address] 10 Apr, 2018 ADHD, predominantly inattent randall type F90.0 and Major depressive disorder, recurrent episode, in full remission F33.42 [facility] [address] [facility] [id number] [address] [place] [address] Mar, ADHD, predominantly inattent randall type F90.0 and Primary insomnia F51.01 [facility] [address] [id number] [address] [place] [address] Mar, [facility] [address] [facility] [id number] [address] [place] [address] Mar, ADHD, predominantly inattent randall type F90.0 and Primary insomnia F51.01 [facility] [address] [facility] [id number] [address] [place] [address] Feb, ADHD, predominantly inattent randall type F90.0 and Primary insomnia F51.01 [place] [address] [facility] [id number] [address] [place] [address] Jan, ADHD, predominantly inattent randall type F90.0 and Primary insomnia F51.01 [facility] [address] [facility] [id number] [address] [place] [address] December, Seasonal allergies J30.2 and Post-nasal drip R09.82 [facility] [address] [facility] [id number] [address] [place] [address] December, ADHD, predominantly inattent randall type F90.0 and Primary insomnia F51.01 [place] [address] [facility] [id number] [address] [place] [address] Nov, ADHD, predominantly inattent randall type F90.0 [place] [address] [facility] [id number] [address] [place] [address] Oct, ADHD, predominantly inattent randall type F90.0 [facility] [address] [facility] [id number] [address] [place] [address] Oct, ADHD, predominantly inattent randall type F90.0 ; Primary insomnia F51.01 and Screening, lipid Z13.220 [facility] [address] [facility] [id number] [address] [place] [address] Sep, ADHD, predominantly inattent randall type F90.0 [place] [address] [id number] [address] [place] [address] Aug, ADHD, predominantly inattent randall type F90.0 and Primary insomnia F51.01 [facility] [address] [id number] [address] [place] [address] Jul, ADHD, predominantly inattent randall type F90.0 [facility] [address] [id number] [address] [place] [address] Jul, Primary insomnia F51.01 and ADHD, predominantly inattentive type F90.0 [facility] [address] [id number] [address] [place] [address] Jun, ADHD, predominantly inattent randall type F90.0 [facility] [address] [facility] [id number] [address] [place] [address] May, ADHD, predominantly inattent randall type F90.0 [facility] [address] [id number] [address] [place] [address] Apr, ADHD, predominantly inattent randall type F90.0 [facility] [address] [id number] [address] [place] [address] Mar, ADHD, predominantly inattent randall type F90.0 ; Primary insomnia F51.01 ; Major depressive disorder, recurrent episode, in full remission F33.42 and Acne comedone L70.0 [facility] [address] [id number] [address] [place] [address] Mar, Major depressive disorder, r ecurrent episode, in full remission F33.42 and ADHD, predominantly inattentive type F90.0 [facility] [address] [id number] [address] [place] [address] Feb, ADHD, predominantly inattent randall type F90.0 [facility] [address] [id number] [address] [place] [address] Feb, Primary insomnia F51.01 [facility] [address] [facility] [id number] [address] [place] [address] Jan, ADHD, predominantly inattent randall type F90.0 and Primary insomnia F51.01 [place] [address] [facility] [id number] [address] [place] [address] December, ADHD, predominantly inattent randall type F90.0 and Primary insomnia F51.01 [facility] [address] [facility] [id number] [address] [place] [address] Oct, ADHD, predominantly inattent randall type F90.0 and Primary insomnia F51.01 [place] [address] [facility] [id number] [address] [place] [address] Sep, ADHD, predominantly inattent randall type F90.0 and Primary insomnia F51.01 [place] [address] [facility] [id number] [address] [place] [address] Aug, ADHD, predominantly inattent randall type F90.0 and Primary insomnia F51.01 [place] [address] [place] [id number] [address] [place] [address] Jul, Major depressive disorder, r ecurrent episode, in full remission F33.42 ; ADHD, predominantly inattentive type F90.0 ; Primary insomnia F51.01 ; Acute non-recurrent maxillary sinusitis J01.00 and Screening, lipid Z13.220 [facility] [address] [facility] [id number] [address] [place] [address] Jun, Acute non-recurrent maxillar y sinusitis J01.00 [place] [address] [facility] [id number] [address] [place] [address] Jun, ADHD, predominantly inattent randall type F90.0 [place] [address] [facility] [id number] [address] [place] [address] May, [facility] [address] [facility] [id number] [address] [place] [address] Apr, [facility] [address] [facility] [id number] [address] [place] [address] Feb, 2016 Rash R21 and Scabies B86 [facility] [address] [id number] [address] [place] [address] Feb, ADHD, predominantly inattent randall type F90.0 and Major depressive disorder, recurrent episode, in full remission F33.42 [facility] [address] [id number] [address] [place] [address] Feb, [facility] [address] [id number] [address] [place] [phone] Oct, [facility] [address] [id number] [address] [place] [address] Sep, [facility] [address] [id number] [address] [place] [address] Sep, [facility] [address] [id number] [address] [place] [phone] Aug, [facility] [address] [id number] [address] [place] [address] Jul, [facility] [address] [id number] [address] [place] [address] Jun, [facility] [address] [id number] [address] [place] [address] May, [facility] [address] [id number] [address] [place] [address] May, ADHD, predominantly inattent randall type F90.0 and Major depressive disorder, recurrent episode, in full remission F33.42 [facility] [address] [id number] [address] [place] [address] Feb, Major depressive disorder, r ecurrent episode, moderate 296.32 [facility] [address] [id number] [address] [place] [address] Feb, [facility] [address] [id number] [address] [place] [address] Jan, [facility] [address] [id number] [address] [place] [address], [place] [address] Jan, [facility] [address] [id number] [address] [place] [address], [place] [address] December, [facility] [address] [id number] [address] [place] [address], [place] [address] Nov, [facility] [address] [id number] [address] [place] [address], [place] [address] Nov, [facility] [address] [id number] [address] [place] [address], [place] [address] Oct, [facility] [address] [id number] [address] [place] [address], [place] [address] Oct, [facility] [address] [id number] [address] [place] [address], [place] [address] Sep, [facility] [address] [id number] [address] [place] [address], [place] [address] Sep, [facility] [address] [id number] [address] [place] [address], [place] [address] Sep, [facility] [address] [id number] [address] [place] [address], [place] [address] Sep, [facility] [address] [id number] [address] [place] [address], [place] [address] Aug, [facility] [address] [id number] [address] [place] [address], [place] [address] Aug, [facility] [address] [id number] [address] [place] [address], [place] [address] Aug, [facility] [address] [id number] [address] [place] [address], [place] [address] Aug, [facility] [address] [id number] [address] [place] [address], [place] [address] Aug, [facility] [address] [id number] [address] [place] [address] [place] [address] Aug, [facility] [address] [id number] [address] [place] [address], [place] [address] Jul, [facility] [address] [id number] [address] [place] [address], [place] [address] Jul, [facility] [address] [id number] [address] [place] [address], [place] [address] Jun, [facility] [address] [id number] [address] [place] [address], [place] [address] Jun, [facility] [address] [id number] [address] [place] [address], [place] [address] May, [facility] [address] [id number] [address] [place] [address], [place] [address] May, [facility] [address] [id number] [address] [place] [address], [place] [address] Apr, [facility] [address] [id number] [address] [place] [address], [place] [address] Apr, [facility] [address] [id number] [address] [place] [address], [place] [address] Apr, [facility] [address] [id number] [address] [place] [address], [place] [address] Mar, [facility] [address] [id number] [address] [place] [address], [place] [address] Mar, [facility] [address] [id number] [address] [place] [address], [place] [address] Mar, [facility] [place] [address] [id number] [address] [place] [address], [place] [address] Mar, [facility] [place] [facility] [address] [id number] [address] [place] [address], [place] [address] Feb, [facility] [place] [address] [id number] [address] [place] [address], [place] [address] Feb, [facility] [place] [facility] [address] [id number] [facility] [place] [address] Feb, [facility] [address] [id number] [facility] [place] [address] Feb, [facility] [place] [facility] [address] [id number] [facility] [place] [address] Feb, [facility] [place] [facility] [address] [id number] [address] [place] [address], [place] [address] Feb, [facility] [place] [address] [id number] [address] [place] [address], [place] [address] Jan, [facility] [place] [address] [id number] [address] [place] [address], [place] [address] Jan, [facility] [address] [id number] [address] [place] [address], [place] [address] Jan, [facility] [address] [id number] [address] [place] [address], [place] [address] Jan, [facility] [address] [id number] [address] [place] [address], [place] [address] December, [facility] [address] [id number] [address] [place] [address], [place] [address] December, [facility] [address] [id number] [address] [place] [address], [place] [address] December, [facility] [place] [facility] [address] [id number] [address] [place] [address], [place] [address] December, [facility] [place] [facility] [address] [id number] [address] [place] [address], [place] [address] December, [facility] [place] [facility] [address] [id number] [address] [place] [address], [place] [address] December, [facility] [facility] [address] [id number] [address] [place] [address], [place] [address] December, [facility] [place] [facility] [address] [id number] [address] [place] [address], [place] [address] December, [facility] [address] [id number] [facility] [place] [address] December, [facility] [address] [id number] [address] [place] [address], [place] [address] December, [facility] [address] [id number] [facility] [place] [address] Nov, [facility] [address] [id number] [address] [place] [address], [place] [address] Nov, [facility] [address] [id number] [facility] [place] [address] Oct, [facility] [address] [id number] [address] [place] [address], [place] [address] Oct, [facility] [address] [id number] [address] [place] [address], [place] [address] Oct, [facility] [address] [id number] [address] [place] [address], [place] [address] Oct, [facility] [address] [id number] [address] [place] [address], [place] [address] Oct, [facility] [address] [id number] [address] [place] [address], [place] [address] Oct, [facility] [address] [id number] [address] [place] [address], [place] [address] Aug, [facility] [address] [id number] [address] [place] [address], [place] [address] Aug, [facility] [address] [id number] [address] [place] [address], [place] [address] Aug, [facility] [place] [facility] [address] [id number] [address] [place] [address], [place] [address] Aug, [facility] [place] [facility] [address] [id number] [address] [place] [address], [place] [address] Aug, [facility] [place] [facility] [address] [id number] [address] [place] [address] Aug, [facility] [address] [id number] [address] [place] [address], [place] [address] Aug, [facility] [address] [id number] [address] [place] [address], [place] [address] Aug, [facility] [address] [id number] [address] [place] [address], [place] [address] Jul, [facility] [address] [id number] [address] [place] [address], [place] [address] Jul, [facility] [address] [id number] [address] [place] [address], [place] [address] Jun, [facility] [address] [id number] [address] [place] [address], [place] [address] Jun, [facility] [address] [id number] [address] [place] [address], [place] [address] Jun, [facility] [address] [id number] [address] [place] [address], [place] [address] Jun, [facility] [address] [id number] [address] [place] [address], [place] [address] Jun, [facility] [address] [id number] [address] [place] [address], [place] [address] Jun, [facility] [address] [id number] [address] [place] [address], [place] [address] May, [facility] [address] [id number] [address] [place] [address], [place] [address] May, [facility] [address] [id number] [address] [place] [address], [place] [address] 16 Apr, 2013 [facility] [address] [id number] [address] [place] [address], [place] [address] 12 Apr, 2013 [facility] [address] [id number] [address] [place] [address], [place] [address] Mar, [facility] [address] [id number] [address] [place] [address], [place] [address] Mar, [facility] [address] [id number] [address] [place] [address], [place] [address] Mar, [facility] [address] [id number] [address] [place] [address], [place] [address] Feb, [facility] [address] [id number] [address] [place] [address], [place] [address] Jan, [facility] [address] [id number] [address] [place] [address], [place] [address] December, [facility] [address] [id number] [address] [place] [address], [place] [address] December, [facility] [address] [id number] [address] [place] [address], [place] [address] December, [facility] [address] [id number] [address] [place] [address], [place] [address] December, [facility] [address] [id number] [address] [place] [address], [place] [address] December, [facility] [address] [id number] [address] [place] [address], [place] [address] December, [facility] [address] [id number] [address] [place] [address], [place] [address] Nov, [facility] [address] [id number] [address] [place] [address], [place] [address] Nov, [facility] [address] [id number] [address] [place] [address], [place] [address] Nov, [facility] [address] [id number] [address] [place] [address], [place] [id number] Oct, [facility] [address] [id number] [address] [place] [address], [place] [address] Jun, [facility] [address] [id number] [address] [place] [address], [place] [address] Jun, [facility] [address] [id number] [address] [place] [address], [place] [address] Jun, [facility] [address] [id number] [address] [place] [address], [place] [address] Jun, [facility] [address] [id number] [address] [place] [address], [place] [address] Apr, [facility] [address] [id number] [address] [place] [address], [place] [address] Mar, [facility] [address] [id number] [address] [place] [address], [place] [address] Mar, [facility] [address] [id number] [address] [place] [address], [place] [address] Jan, [facility] [address] [id number] [address] [place] [address], [place] [address] December, [facility] [address] [id number] [address] [place] [address], [place] [address] Nov, [facility] [address] [id number] [address] [place] [address], [place] [address] Nov, [facility] [address] [id number] [address] [place] [address], [place] [address] Nov, [facility] [address] [id number] [address] [place] [address], [place] [address] Nov, [facility] [address] [id number] [address] [place] [address], [place] [address] Aug, [facility] [address] [id number] [address] [place] [address], [place] [address] Aug, [facility] [address] [id number] [address] [place] [address], [place] [address] Jul, [facility] [address] [id number] [address] [place] [address], [place] [address] Jun, [facility] [address] [id number] [address] [place] [address] Jun, [facility] [address] [facility] [id number] [address] [place] [id number] Apr, [facility] [address] [facility] [id number] [address] [place] [address] Feb, IMMUNIZATIONS No Known Immunizations SOCIAL HISTORY [...]
--- OUTSIDE RECORDS SUMMARY | 2020-02-11 01:29 | XMS REPORT ---
Author Author Elaine Collier Doctor Organization [facility] Address Unknown Phone Unavailable Care Team Providers Care Manager Bridge Name Role Phone Migration, Doctor Unavailable Unavailable PROBLEMS Type Condition ICD9-CM Code [id number] Code Onset Dates Condition S tatus SNOMED Code Problem Major depressive disorder, recurrent episode, in full remission F33.42 Active 873450026 Problem ADHD, predominantly inattentive type F90.0 Active 33825274 Problem Primary insomnia F51.01 Active 397 2004 Problem Non-seasonal allergic rhinitis due to pollen J30.1 Active 45617376 Problem Migraine without aura and without status migrain osus, not intractable G43.009 Active 223002835 Problem Essential hypertension I10 Active 38123910 Problem Seasonal allergies J30.2 Active 4 88161781 Problem Moderate episode of recurrent major depressive disorder F33.1 Active 373417822 Problem Intractable migraine without aura and with status migr ainosus G43.011 Active [id number] ALLERGIES No Information ENCOUNTERS Encounter Location Date Diagnosis [facility] [address] [facility] [id number] [address] [place] [phone] May, [facility] [address] [facility] [id number] [address] [place] [address] Apr, [facility] [address] [facility] [id number] [address] [place] [phone] Mar, Moderate episode of recurren t major depressive disorder F33.1 [facility] [address] [id number] [address] [place] [phone] Mar, [facility] [address] [id number] [address] [place] [phone] Feb, [facility] [address] [facility] [id number] [address] [place] [phone] Feb, [facility] [address] [facility] [id number] [address] [place] [address] Jan, Major depressive disorder, r ecurrent episode, in full remission F33.42 [place] [address] [facility] [id number] [address] [place] [address] Jan, Moderate episode of recurren t major depressive disorder F33.1 ; Non-seasonal allergic rhinitis due to pollen J30.1 ; Migraine without aura and without status migrainosus, not intractable G43.009 and Sinus congestion R09.81 [place] [address] [facility] [id number] [address] [place] [address] Jan, [place] [address] [facility] [id number] [address] [place] [address] December, Moderate episode of recurren t major depressive disorder F33.1 [place] [address] [place] [id number] [address] [place] [phone] December, [place] [address] [place] [id number] [address] [place] [phone] December, Moderate episode of recurren t major depressive disorder F33.1 [place] [address] [facility] [id number] [address] [place] [address] Nov, Moderate episode of recurren t major depressive disorder F33.1 and Intractable migraine without aura and with status migrainosus G43.011 [place] [address] [place] [id number] [address] [place] [address] Nov, [place] [address] [facility] [id number] [address] [place] [address] Oct, Major depressive disorder, r ecurrent episode, in full remission F33.42 ; Intractable migraine without aura and with status migrainosus G43.011 ; Weight gain R63.5 ; Vision changes H53.9 and Other shelter (current) drug therapy Z79.[address] [place] [id number] [facility] [id number] [address] [place] [phone] 15 Oct, 2018 Encounter for pre-employment examination Z02.1 [place] [address] [facility] [id number] [address] [place] [address] Oct, [facility] [address] [id number] [address] [place] [phone] Sep, Acute non-recurrent maxillar y sinusitis J01.00 [facility] [address] [id number] [address] [place] [phone] Sep, [facility] [address] [id number] [address] [place] [phone] Aug, [facility] [address] [facility] [id number] [address] [place] [phone] Jul, ADHD, predominantly inattent randall type F90.0 and Primary insomnia F51.01 [facility] [address] [facility] [id number] [address] [place] [address] Jun, ADHD, predominantly inattent randall type F90.0 [facility] [address] [facility] [id number] [address] [place] [phone] May, ADHD, predominantly inattent randall type F90.0 ; Moderate episode of recurrent major depressive disorder F33.1 and Therapeutic drug monitoring Z51.81 [facility] [address] [facility] [id number] [address] [place] [phone] 04 May, 2018 [facility] [address] [facility] [id number] [address] [place] [phone] Apr, ADHD, predominantly inattent randall type F90.0 [facility] [address] [facility] [id number] [address] [place] [phone] 10 Apr, 2018 ADHD, predominantly inattent randall type F90.0 and Major depressive disorder, recurrent episode, in full remission F33.42 [facility] [address] [facility] [id number] [address] [place] [address] Mar, ADHD, predominantly inattent randall type F90.0 and Primary insomnia F51.01 [facility] [address] [facility] [id number] [address] [place] [phone] Mar, [facility] [address] [facility] [id number] [address] [place] [address] Mar, ADHD, predominantly inattent randall type F90.0 and Primary insomnia F51.01 [facility] [address] [facility] [id number] [address] [place] [phone] Feb, ADHD, predominantly inattent randall type F90.0 and Primary insomnia F51.01 [facility] [address] [place] [id number] [address] [place] [phone] Jan, ADHD, predominantly inattent randall type F90.0 and Primary insomnia F51.01 [facility] [address] [facility] [id number] [address] [place] [phone] December, Seasonal allergies J30.2 and Post-nasal drip R09.82 [place] [address] [place] [id number] [address] [place] [phone] December, ADHD, predominantly inattent randall type F90.0 and Primary insomnia F51.01 [place] [address] [place] [id number] [address] [place] [phone] Nov, ADHD, predominantly inattent randall type F90.0 [place] [address] [place] [id number] [address] [place] [phone] Oct, ADHD, predominantly inattent randall type F90.0 [place] [address] [place] [id number] [address] [place] [phone] Oct, ADHD, predominantly inattent randall type F90.0 ; Primary insomnia F51.01 and Screening, lipid Z13.220 [place] [address] [place] [id number] [address] [place] [phone] Sep, ADHD, predominantly inattent randall type F90.0 [facility] [address] [place] [id number] [address] [place] [phone] Aug, ADHD, predominantly inattent randall type F90.0 and Primary insomnia F51.01 [facility] [address] [id number] [address] [place] [phone] Jul, ADHD, predominantly inattent randall type F90.0 [facility] [address] [id number] [address] [place] [phone] Jul, Primary insomnia F51.01 and ADHD, predominantly inattentive type F90.0 [facility] [address] [id number] [address] [place] [phone] Jun, ADHD, predominantly inattent randall type F90.0 [facility] [address] [id number] [address] [place] [address] May, ADHD, predominantly inattent randall type F90.0 [facility] [address] [id number] [address] [place] [phone] Apr, ADHD, predominantly inattent randall type F90.0 [facility] [address] [id number] [address] [place] [address] Mar, ADHD, predominantly inattent randall type F90.0 ; Primary insomnia F51.01 ; Major depressive disorder, recurrent episode, in full remission F33.42 and Acne comedone L70.0 [facility] [address] [id number] [address] [place] [phone] Mar, Major depressive disorder, r ecurrent episode, in full remission F33.42 and ADHD, predominantly inattentive type F90.0 [facility] [address] [id number] [address] [place] [address] Feb, ADHD, predominantly inattent randall type F90.0 [facility] [address] [id number] [address] [place] [phone] Feb, Primary insomnia F51.01 [facility] [address] [id number] [address] [place] [phone] Jan, ADHD, predominantly inattent randall type F90.0 and Primary insomnia F51.01 [facility] [address] [facility] [id number] [address] [place] [phone] December, ADHD, predominantly inattent randall type F90.0 and Primary insomnia F51.01 [facility] [address] [facility] [id number] [address] [place] [phone] Oct, ADHD, predominantly inattent randall type F90.0 and Primary insomnia F51.01 [facility] [address] [facility] [id number] [address] [place] [phone] Sep, ADHD, predominantly inattent randall type F90.0 and Primary insomnia F51.01 [place] [address] [place] [id number] [address] [place] [phone] Aug, ADHD, predominantly inattent randall type F90.0 and Primary insomnia F51.01 [place] [address] [place] [id number] [place] [phone] Jul, Major depressive disorder, r ecurrent episode, in full remission F33.42 ; ADHD, predominantly inattentive type F90.0 ; Primary insomnia F51.01 ; Acute non-recurrent maxillary sinusitis J01.00 and Screening, lipid Z13.220 [facility] [address] [place] [id number] [address] [place] [phone] Jun, Acute non-recurrent maxillar y sinusitis J01.00 [place] [address] [place] [id number] [address] [place] [address] Jun, ADHD, predominantly inattent randall type F90.0 [facility] [address] [facility] [id number] [address] [place] [phone] May, [facility] [address] [place] [id number] [address] [place] [phone] Apr, [facility] [address] [facility] [id number] [address] [place] [phone] Feb, Rash R21 and Scabies B86 [facility] [address] [place] [address] [place] [phone] Feb, ADHD, predominantly inattent randall type F90.0 and Major depressive disorder, recurrent episode, in full remission F33.42 [facility] [address] [id number] [address] [place] [phone] 05 Feb, 2016 [facility] [address] [id number] [address] [place] [phone] Oct, [facility] [address] [id number] [address] [place] [phone] Sep, [facility] [address] [id number] [address] [place] [phone] Sep, [facility] [address] [id number] [address] [place] [phone] Aug, [facility] [address] [id number] [address] [place] [phone] Jul, [facility] [address] [id number] [address] [place] [phone] Jun, [facility] [address] [id number] [address] [place] [phone] May, [facility] [address] [id number] [address] [place] [phone] May, ADHD, predominantly inattent randall type F90.0 and Major depressive disorder, recurrent episode, in full remission F33.42 [facility] [address] [id number] [address] [place] [address] Feb, Major depressive disorder, r ecurrent episode, moderate 296.32 [facility] [address] [id number] [address] [place] [phone] Feb, [facility] [address] [id number] [address] [place] [phone] Jan, [facility] [address] [id number] [address] [place] [phone] Jan, [facility] [address] [id number] [address] [place] [address], [place] [address] December, [facility] [address] [id number] [address] [place] [address], [place] [address] Nov, [facility] [address] [id number] [address] [place] [address], [place] [address] Nov, [facility] [address] [id number] [address] [place] [address], [place] [address] Oct, [facility] [address] [id number] [address] [place] [address], [place] [address] Oct, [facility] [address] [id number] [address] [place] [address], [place] [address] Sep, [facility] [address] [id number] [address] [place] [address], [place] [address] Sep, [facility] [address] [id number] [address] [place] [address], [place] [address] Sep, [facility] [address] [id number] [address] [place] [address], [place] [address] Sep, [facility] [address] [id number] [address] [place] [address], [place] [address] Aug, [facility] [address] [id number] [address] [place] [address], [place] [address] Aug, [facility] [address] [id number] [address] [place] [address], [place] [address] Aug, [facility] [address] [id number] [address] [place] [address], [place] [address] Aug, [facility] [address] [id number] [address] [place] [address], [place] [address] Aug, [facility] [address] [id number] [address] [place] [address], [place] [address] Aug, [facility] [address] [id number] [address] [place] [address], [place] [address] Jul, [facility] [address] [id number] [address] [place] [address], [place] [address] Jul, [facility] [address] [id number] [address] [place] [address], [place] [address] Jun, [facility] [address] [id number] [address] [place] [address], [place] [address] Jun, [facility] [address] [id number] [address] [place] [address], [place] [address] May, [facility] [address] [id number] [address] [place] [address], [place] [address] May, [facility] [address] [id number] [address] [place] [address], [place] [address] Apr, [facility] [address] [id number] [address] [place] [address], [place] [address] Apr, [facility] [address] [id number] [address] [place] [address], [place] [address] Apr, [facility] [address] [id number] [address] [place] [address], [place] [address] Mar, [facility] [address] [id number] [address] [place] [address], [place] [address] Mar, [facility] [address] [id number] [address] [place] [address], [place] [address] Mar, [facility] [address] [id number] [address] [place] [address], [place] [address] Mar, [facility] [address] [id number] [address] [place] [address], [place] [address] Feb, [facility] [address] [id number] [address] [place] [address], [place] [address] Feb, [facility] [address] [id number] [address] [place] [address], [place] [address] Feb, [facility] [address] [id number] [address] [place] [address], [place] [address] Feb, [facility] [address] [id number] [address] [place] [address], [place] [address] Feb, [facility] [address] [id number] [address] [place] [address], [place] [address] Feb, [facility] [address] [id number] [address] [place] [address], [place] [address] Jan, [facility] [address] [id number] [address] [place] [address], [place] [address] Jan, [facility] [address] [id number] [address] [place] [address], [place] [address] Jan, [facility] [address] [id number] [address] [place] [address], [place] [address] Jan, [facility] [address] [id number] [address] [place] [address], [place] [address] December, [facility] [address] [id number] [address] [place] [address], [place] [address] December, [facility] [address] [id number] [address] [place] [address], [place] [address] December, [facility] [address] [id number] [address] [place] [address], [place] [address] December, [facility] [address] [id number] [address] [place] [address], [place] [address] December, [facility] [address] [id number] [address] [place] [address], [place] [address] December, [facility] [address] [id number] [address] [place] [address], [place] [address] December, [facility] [address] [id number] [address] [place] [address], [place] [address] December, [facility] [address] [id number] [address] [place] [address], [place] [address] December, [facility] [address] [id number] [address] [place] [address], [place] [address] December, [facility] [address] [id number] [address] [place] [address], [place] [address] Nov, [facility] [address] [id number] [address] [place] [address], [place] [address] Nov, [facility] [address] [id number] [address] [place] [address], [place] [address] Oct, [facility] [address] [id number] [address] [place] [address], [place] [address] Oct, [facility] [address] [id number] [address] [place] [address], [place] [address] Oct, [facility] [address] [id number] [address] [place] [address], [place] [address] Oct, [facility] [address] [id number] [address] [place] [address], [place] [address] Oct, [facility] [address] [id number] [address] [place] [address], [place] [address] Oct, [facility] [address] [id number] [address] [place] [address], [place] [address] Aug, [facility] [address] [id number] [address] [place] [address], [place] [address] Aug, [facility] [address] [id number] [address] [place] [address], [place] [address] Aug, [facility] [address] [id number] [address] [place] [address], [place] [address] Aug, [facility] [address] [id number] [address] [place] [address], [place] [address] Aug, [facility] [address] [id number] [address] [place] [address], [place] [address] Aug, [facility] [address] [id number] [address] [place] [address], [place] [address] Aug, [facility] [address] [id number] [address] [place] [address], [place] [address] Aug, [facility] [address] [id number] [address] [place] [address], [place] [address] Jul, [facility] [address] [id number] [address] [place] [address], [place] [address] Jul, [facility] [address] [id number] [address] [place] [address], [place] [address] Jun, [facility] [address] [id number] [address] [place] [address], [place] [address] Jun, [facility] [address] [id number] [address] [place] [address], [place] [address] Jun, [facility] [address] [id number] [address] [place] [address], [place] [address] Jun, [facility] [address] [id number] [address] [place] [address], [place] [address] Jun, [facility] [address] [id number] [address] [place] [address], [place] [address] Jun, [facility] [address] [id number] [address] [place] [address], [place] [address] May, [facility] [address] [id number] [address] [place] [address], [place] [address] May, [facility] [address] [id number] [address] [place] [address], [place] [address] 16 Apr, 2013 [facility] [address] [id number] [address] [place] [address], [place] [address] Apr, [facility] [address] [id number] [address] [place] [address], [place] [address] Mar, [facility] [address] [id number] [address] [place] [address], [place] [address] Mar, [facility] [address] [id number] [address] [place] [address], [place] [address] Mar, [facility] [address] [id number] [address] [place] [address], [place] [address] Feb, [facility] [address] [id number] [address] [place] [address], [place] [address] Jan, [facility] [address] [id number] [address] [place] [address], [place] [address] December, [facility] [address] [id number] [address] [place] [address], [place] [address] December, [facility] [address] [id number] [address] [place] [address], [place] [address] December, [facility] [address] [address] [id number] [address] [place] [address], [place] [address] December, [facility] [address] [id number] [address] [place] [address], [place] [address] December, [facility] [address] [id number] [address] [place] [address], [place] [address] December, [facility] [address] [id number] [address] [place] [address], [place] [address] Nov, [facility] [address] [id number] [address] [place] [address], [place] [address] Nov, [facility] [address] [id number] [address] [place] [address], [place] [address] 08 Nov, 2012 [facility] [address] [id number] [address] [place] [address], [place] [address] Oct, [facility] [address] [id number] [address] [place] [address], [place] [address] Jun, [facility] [address] [id number] [address] [place] [address], [place] [address] Jun, [facility] [address] [id number] [address] [place] [address], [place] [address] Jun, [facility] [address] [id number] [address] [place] [address], [place] [address] Jun, [facility] [address] [id number] [address] [place] [address], [place] [address] Apr, [facility] [address] [id number] [address] [place] [address], [place] [address] Mar, [facility] [address] [id number] [address] [place] [address], [place] [address] Mar, [facility] [address] [id number] [address] [place] [address], [place] [address] Jan, [facility] [address] [id number] [address] [place] [address], [place] [address] December, [facility] [address] [id number] [address] [place] [address], [place] [address] 16 Nov, 2011 [facility] [address] [id number] [address] [place] [address], [place] [address] Nov, [facility] [address] [id number] [address] [place] [address], [place] [address] Nov, [facility] [address] [id number] [address] [place] [address], [place] [address] Nov, [facility] [address] [id number] [address] [place] [address], [place] [address] Aug, [facility] [address] [id number] [address] [place] [address], [place] [address] Aug, [facility] [address] [id number] [address] [place] [address], [place] [address] Jul, [facility] [address] [id number] [address] [place] [address], [place] [address] Jun, [facility] [address] [id number] [address] [place] [address], [place] [address] Jun, [facility] [address] [facility] [id number] [address] [place] [address] Apr, [facility] [address] [facility] [id number] [address] [place] [address] Feb, IMMUNIZATIONS No Known Immunizations SOCIAL HISTORY Never Assessed REASON FOR VISIT PLAN OF CARE VITAL SIGNS Height 64 in 2014-01-23 Weight 163.4 lbs 2014-01-23 Temperature 97.6 degrees Fahrenheit 2014-01-23 Heart Rate 88 bpm 2014-01-23 Respiratory Rate 18 2014-01-23 Blood pressure systolic 160 mmHg 2014-01-23 Blood pressure diastolic 100 mmHg 2014-01-23 MEDICATIONS Unknown Medications RESULTS No Results PROCEDURES No Known procedures INSTRUCTIONS MEDICATIONS ADMINISTERED No Known Medications MEDICAL (GENERAL) HISTORY Type Description Date Medical History Hypertension Medical History ADHD Medical History depression Medical History anxiety Surgical History section Surgical History collar bone repair
--- OUTSIDE RECORDS SUMMARY | 2020-02-11 01:30 | XMS REPORT ---
Author Author Elaine GALARZA Organization [facility] Address [address] [place] [address] Care Team Providers Care Communications Advisor Name Role Phone MARI GALARZA Unavailable PROBLEMS Type Condition ICD9-CM Code [id number] Code Onset Dates Condition S tatus SNOMED Code Problem Major depressive disorder, recurrent episode, in full remission F33.42 Active 864975855 Problem ADHD, predominantly inattentive type F90.0 Active 84674281 Problem Primary insomnia F51.01 Active 397 2004 Problem Non-seasonal allergic rhinitis due to pollen J30.1 Active 77227343 Problem Migraine without aura and without status migrain osus, not intractable G43.009 Active 718542080 Problem Essential hypertension I10 Active 56230431 Problem Seasonal allergies J30.2 Active 4 74996221 Problem Moderate episode of recurrent major depressive disorder F33.1 Active 688550880 Problem Intractable migraine without aura and with status migr ainosus G43.011 Active [id number] ALLERGIES No Information ENCOUNTERS Encounter Location Date Diagnosis [facility] [address] [id number] [address] [place] [address] May, [facility] [address] [id number] [address] [place] [address] Apr, [facility] [address] [id number] [address] [place] [address] Mar, Moderate episode of recurren t major depressive disorder F33.1 [facility] [address] [id number] [address] [place] [address] Mar, [facility] [address] [id number] [address] [place] [address] Feb, [facility] [address] [place] [id number] [address] [place] [address] Feb, [facility] [address] [id number] [address] [place] [address] Jan, Major depressive disorder, r ecurrent episode, in full remission F33.42 [facility] [address] [id number] [address] [place] [address] Jan, Moderate episode of recurren t major depressive disorder F33.1 ; Non-seasonal allergic rhinitis due to pollen J30.1 ; Migraine without aura and without status migrainosus, not intractable G43.009 and Sinus congestion R09.81 [facility] [address] [id number] [address] [place] [address] Jan, [place] [address] [id number] [address] [place] [address] December, Moderate episode of recurren t major depressive disorder F33.1 [place] [address] [id number] [address] [place] [address] December, [facility] [address] [id number] [address] [place] [address] December, Moderate episode of recurren t major depressive disorder F33.1 [facility] [address] [id number] [address] [place] [address] Nov, Moderate episode of recurren t major depressive disorder F33.1 and Intractable migraine without aura and with status migrainosus G43.011 [place] [address] [id number] [address] [place] [address] Nov, [facility] [address] [id number] [address] [place] [address] Oct, Major depressive disorder, r ecurrent episode, in full remission F33.42 ; Intractable migraine without aura and with status migrainosus G43.011 ; Weight gain R63.5 ; Vision changes H53.9 and Other shelter (current) drug therapy Z79.899 [place] [address] [id number] [address] [place] [address] Oct, Encounter for pre-employment examination Z02.1 [facility] [address] [id number] [address] [place] [address] Oct, [facility] [address] [id number] [address] [place] [address] 20 Sep, 2018 Acute non-recurrent maxillar y sinusitis J01.00 [facility] [address] [id number] [address] [place] [address] 14 Sep, 2018 [facility] [address] [id number] [address] [place] [address] Aug, [facility] [address] [id number] [address] [place] [address] Jul, ADHD, predominantly inattent randall type F90.0 and Primary insomnia F51.01 [facility] [address] [id number] [address] [place] [address] Jun, ADHD, predominantly inattent randall type F90.0 [facility] [address] [id number] [address] [place] [address] May, ADHD, predominantly inattent randall type F90.0 ; Moderate episode of recurrent major depressive disorder F33.1 and Therapeutic drug monitoring Z51.81 [place] [address] [id number] [address] [place] [address] May, [facility] [address] [id number] [address] [place] [address] Apr, ADHD, predominantly inattent randall type F90.0 [place] [address] [id number] [address] [place] [address] Apr, ADHD, predominantly inattent randall type F90.0 and Major depressive disorder, recurrent episode, in full remission F33.42 [facility] [address] [id number] [address] [place] [address] Mar, ADHD, predominantly inattent randall type F90.0 and Primary insomnia F51.01 [facility] [address] [id number] [address] [place] [address] Mar, [facility] [address] [id number] [address] [place] [address] Mar, ADHD, predominantly inattent randall type F90.0 and Primary insomnia F51.01 [facility] [address] [id number] [address] [place] [address] Feb, ADHD, predominantly inattent randall type F90.0 and Primary insomnia F51.01 [place] [address] [id number] [address] [place] [address] Jan, ADHD, predominantly inattent randall type F90.0 and Primary insomnia F51.01 [facility] [address] [id number] [address] [place] [address] December, Seasonal allergies J30.2 and Post-nasal drip R09.82 [facility] [address] [id number] [address] [place] [address] December, ADHD, predominantly inattent randall type F90.0 and Primary insomnia F51.01 [facility] [address] [id number] [address] [place] [address] Nov, ADHD, predominantly inattent randall type F90.0 [facility] [address] [id number] [address] [place] [address] Oct, ADHD, predominantly inattent randall type F90.0 [facility] [address] [id number] [address] [place] [address] Oct, ADHD, predominantly inattent randall type F90.0 ; Primary insomnia F51.01 and Screening, lipid Z13.220 [facility] [address] [id number] [address] [place] [address] Sep, ADHD, predominantly inattent randall type F90.0 [place] [address] [id number] [address] [place] [address] Aug, ADHD, predominantly inattent randall type F90.0 and Primary insomnia F51.01 [facility] [address] [id number] [address] [place] [address] Jul, ADHD, predominantly inattent randall type F90.0 [facility] [address] [id number] [address] [place] [address] Jul, Primary insomnia F51.01 and ADHD, predominantly inattentive type F90.0 [facility] [address] [id number] [address] [place] [address] Jun, ADHD, predominantly inattent randall type F90.0 [facility] [address] [id number] [address] [place] [address] May, ADHD, predominantly inattent randall type F90.0 [facility] [address] [id number] [address] [place] [address] Apr, ADHD, predominantly inattent randall type F90.0 [facility] [address] [id number] [address] [place] [address] Mar, ADHD, predominantly inattent randall type F90.0 ; Primary insomnia F51.01 ; Major depressive disorder, recurrent episode, in full remission F33.42 and Acne comedone L70.0 [facility] [address] [id number] [address] [place] [address] Mar, Major depressive disorder, r ecurrent episode, in full remission F33.42 and ADHD, predominantly inattentive type F90.0 [facility] [address] [id number] [address] [place] [address] Feb, ADHD, predominantly inattent randall type F90.0 [facility] [address] [id number] [address] [place] [address] Feb, Primary insomnia F51.01 [facility] [address] [id number] [address] [place] [address] Jan, ADHD, predominantly inattent randall type F90.0 and Primary insomnia F51.01 [place] [address] [id number] [address] [place] [address] December, ADHD, predominantly inattent randall type F90.0 and Primary insomnia F51.01 [place] [address] [id number] [address] [place] [address] Oct, ADHD, predominantly inattent randall type F90.0 and Primary insomnia F51.01 [place] [address] [id number] [address] [place] [address] Sep, ADHD, predominantly inattent randall type F90.0 and Primary insomnia F51.01 [place] [address] [id number] [address] [place] [address] Aug, ADHD, predominantly inattent randall type F90.0 and Primary insomnia F51.01 [place] [address] [id number] [address] [place] [address] Jul, Major depressive disorder, r ecurrent episode, in full remission F33.42 ; ADHD, predominantly inattentive type F90.0 ; Primary insomnia F51.01 ; Acute non-recurrent maxillary sinusitis J01.00 and Screening, lipid Z13.220 [facility] [address] [id number] [address] [place] [address] Jun, Acute non-recurrent maxillar y sinusitis J01.00 [facility] [address] [id number] [address] [place] [address] Jun, ADHD, predominantly inattent randall type F90.0 [place] [address] [id number] [address] [place] [address] May, [facility] [address] [id number] [address] [place] [address] 07 Apr, 2016 [facility] [address] [id number] [address] [place] [address] Feb, 2016 Rash R21 and Scabies B86 [facility] [address] [id number] [address] [place] [address] Feb, ADHD, predominantly inattent randall type F90.0 and Major depressive disorder, recurrent episode, in full remission F33.42 [facility] [address] [id number] [address] [place] [address] Feb, [facility] [address] [id number] [address] [place] [address] Oct, [facility] [address] [id number] [address] [place] [address] Sep, [facility] [address] [id number] [address] [place] [address] Sep, [facility] [address] [id number] [address] [place] [address] Aug, [facility] [address] [id number] [address] [place] [address] Jul, [facility] [address] [id number] [address] [place] [address] Jun, [facility] [address] [id number] [address] [place] [address] May, [facility] [address] [id number] [address] [place] [address] May, ADHD, predominantly inattent randall type F90.0 and Major depressive disorder, recurrent episode, in full remission F33.42 [facility] [address] [id number] [address] [place] [address] Feb, Major depressive disorder, r ecurrent episode, moderate 296.32 [facility] [address] [id number] [address] [place] [address] Feb, [facility] [address] [id number] [address] [place] [address] Jan, [facility] [address] [id number] [address] [place] [address], [place] [address] Jan, [facility] [address] [id number] [address] [place] [address], [place] [address] December, [facility] [address] [id number] [address] [place] [address], [place] [address] Nov, [facility] [address] [id number] [address] [place] [address], [place] [address] Nov, [facility] [address] [id number] [address] [place] [address], [place] [address] Oct, [facility] [address] [id number] [address] [place] [address], [place] [address] Oct, [facility] [address] [id number] [address] [place] [address], [place] [address] Sep, [facility] [address] [id number] [address] [place] [address], [place] [address] Sep, [facility] [address] [id number] [address] [place] [address], [place] [address] Sep, [facility] [address] [id number] [address] [place] [address], [place] [address] Sep, [facility] [address] [id number] [address] [place] [address], [place] [address] Aug, [facility] [address] [id number] [address] [place] [address], [place] [address] Aug, [facility] [address] [id number] [address] [place] [address], [place] [address] Aug, [facility] [address] [id number] [address] [place] [address], [place] [address] Aug, [facility] [address] [id number] [address] [place] [address], [place] [address] Aug, [facility] [address] [id number] [address] [place] [address], [place] [address] Aug, [facility] [address] [id number] [address] [place] [address], [place] [address] Jul, [facility] [address] [id number] [address] [place] [address], [place] [address] Jul, [facility] [address] [id number] [address] [place] [address], [place] [address] Jun, [facility] [address] [id number] [address] [place] [address], [place] [address] Jun, [facility] [address] [id number] [address] [place] [address], [place] [address] May, [facility] [address] [id number] [address] [place] [address], [place] [address] May, [facility] [address] [id number] [address] [place] [address], [place] [address] Apr, [facility] [address] [id number] [address] [place] [address], [place] [address] Apr, [facility] [address] [id number] [address] [place] [address], [place] [address] Apr, [facility] [address] [id number] [address] [place] [address], [place] [address] Mar, [facility] [address] [id number] [address] [place] [address], [place] [address] Mar, [facility] [address] [id number] [address] [place] [address], [place] [address] Mar, [facility] [address] [id number] [address] [place] [address], [place] [address] Mar, [facility] [address] [id number] [address] [place] [address], [place] [address] Feb, [facility] [address] [id number] [address] [place] [address], [place] [address] Feb, [facility] [address] [id number] [address] [place] [address], [place] [address] Feb, [facility] [address] [id number] [address] [place] [address], [place] [address] Feb, [facility] [address] [id number] [address] [place] [address], [place] [address] Feb, [facility] [address] [id number] [address] [place] [address], [place] [address] Feb, [facility] [address] [id number] [address] [place] [address], [place] [address] Jan, [facility] [address] [id number] [address] [place] [address], [place] [address] Jan, [facility] [address] [id number] [address] [place] [address], [place] [address] Jan, [facility] [address] [id number] [address] [place] [address], [place] [address] Jan, [facility] [address] [id number] [address] [place] [address], [place] [address] December, [facility] [address] [id number] [address] [place] [address], [place] [address] December, [facility] [address] [id number] [address] [place] [address], [place] [address] December, [facility] [address] [id number] [address] [place] [address], [place] [address] December, [facility] [address] [id number] [address] [place] [address], [place] [address] December, [facility] [address] [id number] [address] [place] [address], [place] [address] December, [facility] [address] [id number] [address] [place] [address], [place] [address] December, [facility] [address] [id number] [address] [place] [address], [place] [address] December, [facility] [address] [id number] [facility] [place] [address] December, [facility] [address] [id number] [address] [place] [address], [place] [address] December, [facility] [address] [id number] [address] [place] [address], [place] [address] Nov, [facility] [address] [id number] [address] [place] [address], [place] [address] Nov, [facility] [address] [id number] [address] [place] [address], [place] [address] Oct, [facility] [address] [id number] [address] [place] [address], [place] [address] Oct, [facility] [address] [id number] [address] [place] [address], [place] [address] Oct, [facility] [address] [id number] [address] [place] [address], [place] [address] Oct, [facility] [address] [id number] [address] [place] [address], [place] [address] Oct, [facility] [address] [id number] [address] [place] [address], [place] [address] Oct, [facility] [address] [id number] [address] [place] [address], [place] [address] Aug, [facility] [address] [id number] [address] [place] [address], [place] [address] Aug, [facility] [address] [id number] [address] [place] [address], [place] [address] Aug, [facility] [address] [id number] [address] [place] [address], [place] [address] Aug, [facility] [address] [id number] [address] [place] [address], [place] [address] Aug, [facility] [address] [id number] [address] [place] [address], [place] [address] Aug, [facility] [address] [id number] [address] [place] [address], [place] [address] Aug, [facility] [address] [id number] [address] [place] [address], [place] [address] Aug, [facility] [address] [id number] [address] [place] [address], [place] [address] Jul, [facility] [address] [id number] [address] [place] [address], [place] [address] Jul, [facility] [address] [id number] [address] [place] [address], [place] [address] Jun, [facility] [address] [id number] [address] [place] [address], [place] [address] Jun, [facility] [address] [id number] [address] [place] [address], [place] [address] Jun, [facility] [address] [id number] [address] [place] [address], [place] [address] Jun, [facility] [address] [id number] [address] [place] [address], [place] [address] Jun, [facility] [address] [id number] [address] [place] [address], [place] [id number] Jun, [facility] [address] [id number] [address] [place] [address], [place] [address] May, [facility] [address] [id number] [address] [place] [address], [place] [id number] May, [facility] [address] [id number] [address] [place] [address], [place] [id number] 16 Apr, 2013 [facility] [address] [id number] [address] [place] [address], [place] [address] 12 Apr, 2013 [facility] [address] [id number] [address] [place] [address], [place] [address] Mar, [facility] [address] [id number] [address] [place] [address], [place] [address] Mar, [facility] [address] [id number] [address] [place] [address], [place] [id number] Mar, [facility] [address] [id number] [address] [place] [address], [place] [address] Feb, [facility] [address] [id number] [address] [place] [address], [place] [id number] Jan, [facility] [address] [id number] [address] [place] [address], [place] [address] December, [facility] [address] [id number] [address] [place] [address], [place] [address] December, [facility] [address] [id number] [address] [place] [address], [place] [address] December, [facility] [address] [id number] [address] [place] [address], [place] [address] December, [facility] [address] [id number] [address] [place] [address], [place] [id number] December, [facility] [address] [id number] [address] [place] [address], [place] [address] December, [facility] [address] [id number] [address] [place] [address], [place] [id number] Nov, [facility] [address] [id number] [address] [place] [address], [place] [address] Nov, [facility] [address] [id number] [address] [place] [address], [place] [address] Nov, [facility] [address] [id number] [address] [place] [address], [place] [id number] 05 Oct, 2012 [facility] [address] [id number] [address] [place] [address], [place] [id number] Jun, [facility] [address] [id number] [address] [place] [address], [place] [address] 14 Jun, 2012 [facility] [address] [id number] [address] [place] [address], [place] [id number] Jun, [facility] [address] [id number] [address] [place] [address], [place] [id number] Jun, [facility] [address] [id number] [address] [place] [address], [place] [address] Apr, [facility] [address] [id number] [address] [place] [address], [place] [id number] Mar, [facility] [address] [id number] [address] [place] [address], [place] [id number] Mar, [facility] [address] [id number] [address] [place] [address], [place] [id number] Jan, [facility] [address] [id number] [address] [place] [address], [place] [id number] December, [facility] [address] [id number] [address] [place] [address], [place] [id number] Nov, [facility] [address] [id number] [address] [place] [address], [place] [id number] Nov, [facility] [address] [id number] [address] [place] [address], [place] [id number] Nov, [facility] [address] [id number] [address] [place] [address], [place] [id number] Nov, [facility] [address] [id number] [address] [place] [address], [place] [id number] Aug, [facility] [address] [id number] [address] [place] [address], [place] [address] Aug, [facility] [address] [id number] [address] [place] [address], [place] [id number] Jul, [facility] [address] [id number] [address] [place] [address], [place] [id number] Jun, [facility] [address] [facility] [address] [id number] [address] [place] [id number] Jun, [facility] [address] [facility] [id number] [address] [place] [id number] Apr, [facility] [address] [facility] [id number] [address] [place] [id number] Feb, IMMUNIZATIONS No Known Immunizations SOCIAL HISTORY [...]
--- OUTSIDE RECORDS SUMMARY | 2020-02-11 01:30 | XMS REPORT ---
Author Author Elaine GALARZA Organization [facility] Address [address] [place] [address] Care Team Providers Care Home Improvement Advisor Name Role Phone MARI GALARZA Unavailable PROBLEMS Type Condition ICD9-CM Code FMP71-TS Code Onset Dates Condition S tatus SNOMED Code Problem Major depressive disorder, recurrent episode, in full remission F33.42 Active 101878178 Problem ADHD, predominantly inattentive type F90.0 Active 38199569 Problem Primary insomnia F51.01 Active 397 2004 Problem Non-seasonal allergic rhinitis due to pollen J30.1 Active 15739133 Problem Migraine without aura and without status migrain osus, not intractable G43.009 Active 809293769 Problem Essential hypertension I10 Active 78776631 Problem Seasonal allergies J30.2 Active 4 38389581 Problem Moderate episode of recurrent major depressive disorder F33.1 Active 603091290 Problem Intractable migraine without aura and with status migr ainosus G43.011 Active 629936018 ALLERGIES No Information ENCOUNTERS Encounter Location Date Diagnosis [facility] [address] [facility] [id number] [address] [place] [address] May, [facility] [address] [facility] [id number] [address] [place] [address] Apr, [facility] [address] [facility] [id number] [address] [place] [address] Mar, Moderate episode of recurren t major depressive disorder F33.1 [facility] [address] [facility] [id number] [address] [place] [address] Mar, [facility] [address] [facility] [id number] [address] [place] [address] Feb, [facility] [address] [place] [id number] [address] [place] [address] Feb, [facility] [address] [id number] [address] [place] [address] Jan, Major depressive disorder, r ecurrent episode, in full remission F33.42 [facility] [address] [id number] [address] [place] [address] Jan, Moderate episode of recurren t major depressive disorder F33.1 ; Non-seasonal allergic rhinitis due to pollen J30.1 ; Migraine without aura and without status migrainosus, not intractable G43.009 and Sinus congestion R09.81 [facility] [address] [id number] [address] [place] [address] Jan, [place] [address] [id number] [address] [place] [address] December, Moderate episode of recurren t major depressive disorder F33.1 [place] [address] [id number] [address] [place] [address] December, [facility] [address] [id number] [address] [place] [address] December, Moderate episode of recurren t major depressive disorder F33.1 [facility] [address] [id number] [address] [place] [address] Nov, Moderate episode of recurren t major depressive disorder F33.1 and Intractable migraine without aura and with status migrainosus G43.011 [place] [address] [id number] [address] [place] [address] Nov, [facility] [address] [id number] [address] [place] [address] Oct, Major depressive disorder, r ecurrent episode, in full remission F33.42 ; Intractable migraine without aura and with status migrainosus G43.011 ; Weight gain R63.5 ; Vision changes H53.9 and Other shelter (current) drug therapy Z79.899 [place] [address] [id number] [address] [place] [address] Oct, Encounter for pre-employment examination Z02.1 [facility] [address] [id number] [address] [place] [address] Oct, [facility] [address] [id number] [address] [place] [address] 20 Sep, 2018 Acute non-recurrent maxillar y sinusitis J01.00 [facility] [address] [id number] [address] [place] [address] 14 Sep, 2018 [facility] [address] [id number] [address] [place] [address] Aug, [facility] [address] [facility] [id number] [address] [place] [address] Jul, ADHD, predominantly inattent randall type F90.0 and Primary insomnia F51.01 [facility] [address] [facility] [id number] [address] [place] [address] Jun, ADHD, predominantly inattent randall type F90.0 [facility] [address] [facility] [id number] [address] [place] [address] May, ADHD, predominantly inattent randall type F90.0 ; Moderate episode of recurrent major depressive disorder F33.1 and Therapeutic drug monitoring Z51.81 [place] [address] [facility] [id number] [address] [place] [address] May, [facility] [address] [facility] [id number] [address] [place] [address] Apr, ADHD, predominantly inattent randall type F90.0 [place] [address] [facility] [id number] [address] [place] [address] Apr, ADHD, predominantly inattent randall type F90.0 and Major depressive disorder, recurrent episode, in full remission F33.42 [facility] [address] [facility] [id number] [address] [place] [address] Mar, ADHD, predominantly inattent randall type F90.0 and Primary insomnia F51.01 [facility] [address] [id number] [address] [place] [address] Mar, [facility] [address] [facility] [id number] [address] [place] [address] Mar, ADHD, predominantly inattent randall type F90.0 and Primary insomnia F51.01 [facility] [address] [facility] [id number] [address] [place] [address] Feb, ADHD, predominantly inattent randall type F90.0 and Primary insomnia F51.01 [place] [address] [facility] [id number] [address] [place] [address] Jan, ADHD, predominantly inattent randall type F90.0 and Primary insomnia F51.01 [facility] [address] [facility] [id number] [address] [place] [address] December, Seasonal allergies J30.2 and Post-nasal drip R09.82 [facility] [address] [facility] [id number] [address] [place] [address] December, ADHD, predominantly inattent randall type F90.0 and Primary insomnia F51.01 [facility] [address] [facility] [id number] [address] [place] [address] Nov, ADHD, predominantly inattent randall type F90.0 [facility] [address] [facility] [id number] [address] [place] [address] Oct, ADHD, predominantly inattent randall type F90.0 [facility] [address] [facility] [id number] [address] [place] [address] Oct, ADHD, predominantly inattent randall type F90.0 ; Primary insomnia F51.01 and Screening, lipid Z13.220 [facility] [address] [facility] [id number] [address] [place] [address] Sep, ADHD, predominantly inattent randall type F90.0 [place] [address] [id number] [address] [place] [address] Aug, ADHD, predominantly inattent randall type F90.0 and Primary insomnia F51.01 [facility] [address] [id number] [address] [place] [address] Jul, ADHD, predominantly inattent randall type F90.0 [facility] [address] [id number] [address] [place] [address] Jul, Primary insomnia F51.01 and ADHD, predominantly inattentive type F90.0 [facility] [address] [id number] [address] [place] [address] Jun, ADHD, predominantly inattent randall type F90.0 [facility] [address] [id number] [address] [place] [address] May, ADHD, predominantly inattent randall type F90.0 [facility] [address] [id number] [address] [place] [address] Apr, ADHD, predominantly inattent randall type F90.0 [facility] [address] [id number] [address] [place] [address] Mar, ADHD, predominantly inattent randall type F90.0 ; Primary insomnia F51.01 ; Major depressive disorder, recurrent episode, in full remission F33.42 and Acne comedone L70.0 [facility] [address] [id number] [address] [place] [address] Mar, Major depressive disorder, r ecurrent episode, in full remission F33.42 and ADHD, predominantly inattentive type F90.0 [facility] [address] [id number] [address] [place] [address] Feb, ADHD, predominantly inattent randall type F90.0 [facility] [address] [id number] [address] [place] [address] Feb, Primary insomnia F51.01 [facility] [address] [id number] [address] [place] [address] Jan, ADHD, predominantly inattent randall type F90.0 and Primary insomnia F51.01 [place] [address] [facility] [id number] [address] [place] [address] December, ADHD, predominantly inattent randall type F90.0 and Primary insomnia F51.01 [place] [address] [facility] [id number] [address] [place] [address] Oct, ADHD, predominantly inattent randall type F90.0 and Primary insomnia F51.01 [place] [address] [facility] [id number] [address] [place] [address] Sep, ADHD, predominantly inattent randall type F90.0 and Primary insomnia F51.01 [place] [address] [facility] [id number] [address] [place] [address] Aug, ADHD, predominantly inattent randall type F90.0 and Primary insomnia F51.01 [place] [address] [facility] [id number] [address] [place] [address] Jul, Major depressive disorder, r ecurrent episode, in full remission F33.42 ; ADHD, predominantly inattentive type F90.0 ; Primary insomnia F51.01 ; Acute non-recurrent maxillary sinusitis J01.00 and Screening, lipid Z13.220 [facility] [address] [facility] [id number] [address] [place] [address] Jun, Acute non-recurrent maxillar y sinusitis J01.00 [facility] [address] [id number] [address] [place] [address] Jun, ADHD, predominantly inattent randall type F90.0 [place] [address] [facility] [id number] [address] [place] [address] May, [facility] [address] [id number] [address] [place] [address] 07 Apr, 2016 [facility] [address] [facility] [id number] [address] [place] [address] Feb, 2016 Rash R21 and Scabies B86 [facility] [address] [id number] [address] [place] [address] Feb, ADHD, predominantly inattent randall type F90.0 and Major depressive disorder, recurrent episode, in full remission F33.42 [facility] [address] [id number] [address] [place] [address] Feb, [facility] [address] [id number] [address] [place] [address] Oct, [facility] [address] [id number] [address] [place] [id number] Sep, [facility] [address] [id number] [address] [place] [address] Sep, [facility] [address] [id number] [address] [place] [address] Aug, [facility] [address] [id number] [address] [place] [address] Jul, [facility] [address] [id number] [address] [place] [address] Jun, [facility] [address] [id number] [address] [place] [address] May, [facility] [address] [id number] [address] [place] [address] May, ADHD, predominantly inattent randall type F90.0 and Major depressive disorder, recurrent episode, in full remission F33.42 [facility] [address] [id number] [address] [place] [address] Feb, Major depressive disorder, r ecurrent episode, moderate 296.32 [facility] [address] [id number] [address] [place] [address] Feb, [facility] [address] [id number] [address] [place] [address] Jan, [facility] [address] [id number] [address] [place] [address], [place] [address] Jan, [facility] [address] [id number] [address] [place] [address], [place] [address] December, [facility] [address] [id number] [address] [place] [address], [place] [address] Nov, [facility] [address] [id number] [address] [place] [address], [place] [address] Nov, [facility] [address] [id number] [address] [place] [address], [place] [address] Oct, [facility] [address] [id number] [address] [place] [address], [place] [address] Oct, [facility] [address] [id number] [address] [place] [address], [place] [address] Sep, [facility] [address] [id number] [address] [place] [address], [place] [address] Sep, [facility] [address] [id number] [address] [place] [address], [place] [address] Sep, [facility] [address] [id number] [address] [place] [address], [place] [address] Sep, [facility] [address] [id number] [address] [place] [address], [place] [address] Aug, [facility] [address] [id number] [address] [place] [address], [place] [address] Aug, [facility] [address] [id number] [address] [place] [address], [place] [address] Aug, [facility] [address] [id number] [address] [place] [address], [place] [address] Aug, [facility] [address] [id number] [address] [place] [address], [place] [address] Aug, [facility] [address] [id number] [address] [place] [address], [place] [address] Aug, [facility] [address] [id number] [address] [place] [address], [place] [address] Jul, [facility] [address] [id number] [address] [place] [address], [place] [address] Jul, [facility] [address] [id number] [address] [place] [address], [place] [address] Jun, [facility] [address] [id number] [address] [place] [address], [place] [address] Jun, [facility] [address] [id number] [address] [place] [address], [place] [address] May, [facility] [address] [id number] [address] [place] [address], [place] [address] May, [facility] [address] [id number] [address] [place] [address], [place] [address] Apr, [facility] [address] [id number] [address] [place] [address], [place] [address] Apr, [facility] [address] [id number] [address] [place] [address], [place] [address] Apr, [facility] [address] [id number] [address] [place] [address], [place] [address] Mar, [facility] [address] [id number] [address] [place] [address], [place] [address] Mar, [facility] [address] [id number] [address] [place] [address], [place] [address] Mar, [facility] [address] [id number] [address] [place] [address], [place] [address] Mar, [facility] [address] [id number] [address] [place] [address], [place] [address] Feb, [facility] [address] [id number] [address] [place] [address], [place] [address] Feb, [facility] [address] [id number] [address] [place] [address], [place] [address] Feb, [facility] [address] [id number] [address] [place] [address], [place] [address] Feb, [facility] [address] [id number] [address] [place] [address], [place] [address] Feb, [facility] [address] [id number] [address] [place] [address], [place] [address] Feb, [facility] [address] [id number] [address] [place] [address], [place] [address] Jan, [facility] [address] [id number] [address] [place] [address], [place] [address] Jan, [facility] [address] [id number] [address] [place] [address], [place] [address] Jan, [facility] [address] [id number] [address] [place] [address], [place] [address] Jan, [facility] [address] [id number] [address] [place] [address], [place] [address] December, [facility] [address] [id number] [address] [place] [address], [place] [address] December, [facility] [address] [id number] [address] [place] [address], [place] [address] December, [facility] [address] [id number] [address] [place] [address], [place] [address] December, [facility] [address] [id number] [address] [place] [address], [place] [address] December, [facility] [address] [id number] [address] [place] [address], [place] [address] December, [facility] [address] [id number] [address] [place] [address], [place] [address] December, [facility] [address] [id number] [address] [place] [address], [place] [address] December, [facility] [address] [id number] [facility] [place] [address] December, [facility] [address] [id number] [address] [place] [address], [place] [address] December, [facility] [address] [id number] [address] [place] [address], [place] [address] Nov, [facility] [address] [id number] [address] [place] [address], [place] [address] Nov, [facility] [address] [id number] [address] [place] [address], [place] [address] Oct, [facility] [address] [id number] [address] [place] [address], [place] [address] Oct, [facility] [address] [id number] [address] [place] [address], [place] [address] Oct, [facility] [address] [id number] [address] [place] [address], [place] [address] Oct, [facility] [address] [id number] [address] [place] [address], [place] [address] Oct, [facility] [address] [id number] [address] [place] [address], [place] [address] Oct, [facility] [address] [id number] [address] [place] [address], [place] [address] Aug, [facility] [address] [id number] [address] [place] [address], [place] [address] Aug, [facility] [address] [id number] [address] [place] [address], [place] [address] Aug, [facility] [address] [id number] [address] [place] [address], [place] [address] Aug, [facility] [address] [id number] [address] [place] [address], [place] [address] Aug, [facility] [address] [id number] [address] [place] [address], [place] [address] Aug, [facility] [address] [id number] [address] [place] [address], [place] [address] Aug, [facility] [address] [id number] [address] [place] [address], [place] [address] Aug, [facility] [address] [id number] [address] [place] [address], [place] [address] Jul, [facility] [address] [id number] [address] [place] [address], [place] [address] Jul, [facility] [address] [id number] [address] [place] [address], [place] [address] Jun, [facility] [address] [id number] [address] [place] [address], [place] [address] Jun, [facility] [address] [id number] [address] [place] [address], [place] [address] Jun, [facility] [address] [id number] [address] [place] [address], [place] [address] Jun, [facility] [address] [id number] [address] [place] [address], [place] [address] Jun, [facility] [address] [id number] [address] [place] [address], [place] [address] Jun, [facility] [address] [id number] [address] [place] [address], [place] [address] May, [facility] [address] [id number] [address] [place] [address], [place] [address] May, [facility] [address] [id number] [address] [place] [address], [place] [address] 16 Apr, 2013 [facility] [address] [id number] [address] [place] [address], [place] [address] 12 Apr, 2013 [facility] [address] [id number] [address] [place] [address], [place] [address] Mar, [facility] [address] [id number] [address] [place] [address], [place] [address] Mar, [facility] [address] [id number] [address] [place] [address], [place] [address] Mar, [facility] [address] [id number] [address] [place] [address], [place] [address] Feb, [facility] [address] [id number] [address] [place] [address], [place] [address] Jan, [facility] [address] [id number] [address] [place] [address], [place] [address] December, [facility] [address] [id number] [address] [place] [address], [place] [address] December, [facility] [address] [id number] [address] [place] [address], [place] [address] December, [facility] [address] [id number] [address] [place] [address], [place] [address] December, [facility] [address] [id number] [address] [place] [address], [place] [address] December, [facility] [address] [id number] [address] [place] [address], [place] [address] December, [facility] [address] [id number] [address] [place] [address], [place] [address] Nov, [facility] [address] [id number] [address] [place] [address], [place] [address] Nov, [facility] [address] [id number] [address] [place] [address], [place] [address] Nov, [facility] [address] [id number] [address] [place] [address], [place] [address] 05 Oct, 2012 [facility] [address] [id number] [address] [place] [address], [place] [address] Jun, [facility] [facility] [address] [id number] [address] [place] [address], [place] [address] 14 Jun, 2012 [facility] [address] [id number] [address] [place] [address], [place] [address] Jun, [facility] [address] [id number] [address] [place] [address], [place] [address] Jun, [facility] [address] [id number] [address] [place] [address], [place] [address] Apr, [facility] [address] [id number] [address] [place] [address], [place] [address] Mar, [facility] [address] [id number] [address] [place] [address], [place] [address] Mar, [facility] [address] [id number] [address] [place] [address], [place] [address] Jan, [facility] [address] [id number] [address] [place] [address], [place] [address] December, [facility] [address] [id number] [address] [place] [address], [place] [address] Nov, [facility] [address] [id number] [address] [place] [address], [place] [address] Nov, [facility] [address] [id number] [address] [place] [address], [place] [address] Nov, [facility] [address] [id number] [address] [place] [address], [place] [address] Nov, [facility] [address] [id number] [address] [place] [address], [place] [address] Aug, [facility] [address] [id number] [address] [place] [address], [place] [address] Aug, [facility] [address] [id number] [address] [place] [address], [place] [address] Jul, [facility] [address] [id number] [address] [place] [address], [place] [address] Jun, [facility] [address] [facility] [id number] [address] [place] [address] Jun, [facility] [address] [facility] [id number] [address] [place] [address] Apr, [facility] [address] [facility] [id number] [address] [place] [id number] Feb, IMMUNIZATIONS No Known Immunizations SOCIAL HISTORY [...]
--- OUTSIDE RECORDS SUMMARY | 2020-02-11 01:30 | XMS REPORT ---
Author Author Elaine GALARZA Organization [facility] Address [address] [place] [address] Care Team Providers Care Freight Coordinator Name Role Phone MARI GALARZA Unavailable PROBLEMS Type Condition ICD9-CM Code [id number] Code Onset Dates Condition S tatus SNOMED Code Problem Major depressive disorder, recurrent episode, in full remission F33.42 Active 835885445 Problem ADHD, predominantly inattentive type F90.0 Active 36049206 Problem Primary insomnia F51.01 Active 397 2004 Problem Non-seasonal allergic rhinitis due to pollen J30.1 Active 47503636 Problem Migraine without aura and without status migrain osus, not intractable G43.009 Active 747559002 Problem Essential hypertension I10 Active 77943314 Problem Seasonal allergies J30.2 Active 4 47518407 Problem Moderate episode of recurrent major depressive disorder F33.1 Active 372790522 Problem Intractable migraine without aura and with status migr ainosus G43.011 Active [id number] ALLERGIES No Information ENCOUNTERS Encounter Location Date Diagnosis [place] [address] [address] [facility] [id number] [address] [place] [address] Mar, [facility] [address] [facility] [id number] [address] [place] [address] Feb, [facility] [address] [facility] [id number] [address] [place] [address] Feb, [facility] [address] [facility] [id number] [address] [place] [address] Jan, Major depressive disorder, r ecurrent episode, in full remission F33.42 [facility] [address] [facility] [id number] [address] [place] [address] Jan, Moderate episode of recurren t major depressive disorder F33.1 ; Non-seasonal allergic rhinitis due to pollen J30.1 ; Migraine without aura and without status migrainosus, not intractable G43.009 and Sinus congestion R09.81 [facility] [address] [place] [id number] [address] [place] [address] Jan, [place] [address] [address] [facility] [id number] [address] [place] [address] December, Moderate episode of recurren t major depressive disorder F33.1 [facility] [address] [facility] [id number] [address] [place] [address] December, [facility] [address] [facility] [id number] [address] [place] [address] December, Moderate episode of recurren t major depressive disorder F33.1 [place] [address] [address] [place] [id number] [place] [address] Nov, Moderate episode of recurren t major depressive disorder F33.1 and Intractable migraine without aura and with status migrainosus G43.011 [place] [id number] [place] [address] Nov, [place] [address] [address] Oct, Major depressive disorder, r ecurrent episode, in full remission F33.42 ; Intractable migraine without aura and with status migrainosus G43.011 ; Weight gain R63.5 ; Vision changes H53.9 and Other snf (current) drug therapy Z79.899 [facility] [address] [place] [id number] [address] [place] [address] Oct, Encounter for pre-employment examination Z02.1 [place] [address] [address] [place] [id number] [address] [place] [address] Oct, [facility] [address] [place] [id number] [address] [place] [address] Sep, Acute non-recurrent maxillar y sinusitis J01.00 [facility] [address] [id number] [address] [place] [address] 14 Sep, 2018 [facility] [address] [id number] [address] [place] [address] Aug, [facility] [address] [facility] [id number] [address] [place] [address] Jul, ADHD, predominantly inattent randall type F90.0 and Primary insomnia F51.01 [facility] [address] [facility] [id number] [address] [place] [address] Jun, ADHD, predominantly inattent randall type F90.0 [place] [address] [address] [facility] [id number] [address] [place] [address] May, ADHD, predominantly inattent randall type F90.0 ; Moderate episode of recurrent major depressive disorder F33.1 and Therapeutic drug monitoring Z51.81 [place] [address] [address] [facility] [id number] [address] [place] [address] May, [facility] [address] [facility] [id number] [address] [place] [address] Apr, ADHD, predominantly inattent randall type F90.0 [place] [address] [address] [facility] [id number] [address] [place] [address] 10 Apr, 2018 ADHD, predominantly inattent randall type F90.0 and Major depressive disorder, recurrent episode, in full remission F33.42 [place] [address] [address] [facility] [id number] [address] [place] [address] Mar, ADHD, predominantly inattent randall type F90.0 and Primary insomnia F51.01 [facility] [address] [facility] [id number] [address] [place] [address] Mar, [facility] [address] [facility] [id number] [address] [place] [address] Mar, ADHD, predominantly inattent randall type F90.0 and Primary insomnia F51.01 [place] [address] [address] [place] [id number] [address] [place] [address] Feb, ADHD, predominantly inattent randall type F90.0 and Primary insomnia F51.01 [facility] [address] [place] [id number] [address] [place] [address] Jan, ADHD, predominantly inattent randall type F90.0 and Primary insomnia F51.01 [facility] [address] [place] [id number] [address] [place] [address] December, Seasonal allergies J30.2 and Post-nasal drip R09.82 [facility] [address] [place] [id number] [address] [place] [address] December, ADHD, predominantly inattent randall type F90.0 and Primary insomnia F51.01 [place] [address] [address] Nov, ADHD, predominantly inattent randall type F90.0 [place] [address] [address] Oct, ADHD, predominantly inattent randall type F90.0 [place] [address] [address] Oct, ADHD, predominantly inattent randall type F90.0 ; Primary insomnia F51.01 and Screening, lipid Z13.220 [place] [address] [address] [place] [id number] [address] [place] [address] Sep, ADHD, predominantly inattent randall type F90.0 [place] [address] [address] Aug, ADHD, predominantly inattent randall type F90.0 and Primary insomnia F51.01 [facility] [address] [place] [id number] [address] [place] [address] Jul, ADHD, predominantly inattent randall type F90.0 [place] [address] [address] Jul, Primary insomnia F51.01 and ADHD, predominantly inattentive type F90.0 [facility] [address] [facility] [id number] [address] [place] [address] Jun, ADHD, predominantly inattent randall type F90.0 [facility] [address] [facility] [id number] [address] [place] [address] May, ADHD, predominantly inattent randall type F90.0 [facility] [address] [place] [id number] [address] [place] [address] Apr, ADHD, predominantly inattent randall type F90.0 [place] [address] [address] [place] [id number] [place] [address] Mar, ADHD, predominantly inattent randall type F90.0 ; Primary insomnia F51.01 ; Major depressive disorder, recurrent episode, in full remission F33.42 and Acne comedone L70.0 [facility] [address] [place] [id number] [address] [place] [address] Mar, Major depressive disorder, r ecurrent episode, in full remission F33.42 and ADHD, predominantly inattentive type F90.0 [place] [address] [address] [place] [id number] [address] [place] [address] Feb, ADHD, predominantly inattent randall type F90.0 [facility] [address] [place] [id number] [address] [place] [address] Feb, Primary insomnia F51.01 [facility] [address] [place] [id number] [address] [place] [address] Jan, ADHD, predominantly inattent randall type F90.0 and Primary insomnia F51.01 [facility] [address] [place] [id number] [address] [place] [address] December, ADHD, predominantly inattent randall type F90.0 and Primary insomnia F51.01 [facility] [address] [place] [id number] [address] [place] [address] Oct, ADHD, predominantly inattent randall type F90.0 and Primary insomnia F51.01 [place] [address] [facility] [id number] [address] [place] [address] Sep, ADHD, predominantly inattent randall type F90.0 and Primary insomnia F51.01 [facility] [address] [facility] [id number] [address] [place] [address] Aug, ADHD, predominantly inattent randall type F90.0 and Primary insomnia F51.01 [place] [address] [id number] [address] [place] [address] Jul, Major depressive disorder, r ecurrent episode, in full remission F33.42 ; ADHD, predominantly inattentive type F90.0 ; Primary insomnia F51.01 ; Acute non-recurrent maxillary sinusitis J01.00 and Screening, lipid Z13.220 [facility] [address] [facility] [id number] [address] [place] [address] Jun, Acute non-recurrent maxillar y sinusitis J01.00 [facility] [address] [id number] [address] [place] [address] Jun, ADHD, predominantly inattent randall type F90.0 [facility] [address] [id number] [address] [place] [address] May, [facility] [address] [facility] [id number] [address] [place] [address] Apr, [facility] [address] [id number] [address] [place] [address] Feb, Rash R21 and Scabies B86 [place] [address] [address] [facility] [id number] [address] [place] [address] Feb, ADHD, predominantly inattent randall type F90.0 and Major depressive disorder, recurrent episode, in full remission F33.42 [place] [address] [address] [facility] [id number] [address] [place] [address] Feb, [facility] [address] [id number] [address] [place] [address] Oct, [facility] [address] [id number] [address] [place] [address] Sep, [facility] [address] [id number] [address] [place] [address] Sep, [facility] [address] [id number] [address] [place] [address] Aug, [facility] [address] [id number] [address] [place] [address] Jul, [facility] [address] [id number] [address] [place] [address] Jun, [facility] [address] [facility] [id number] [address] [place] [address] May, [facility] [address] [facility] [id number] [address] [place] [address] May, ADHD, predominantly inattent randall type F90.0 and Major depressive disorder, recurrent episode, in full remission F33.42 [facility] [address] [id number] [address] [place] [address] Feb, Major depressive disorder, r ecurrent episode, moderate 296.32 [facility] [address] [id number] [address] [place] [address] Feb, [facility] [address] [id number] [address] [place] [address] Jan, [facility] [address] [id number] [address] [place] [address] Jan, [facility] [address] [facility] [id number] [address] [place] [address] December, [facility] [address] [id number] [address] [place] [address] Nov, [facility] [address] [id number] [address] [place] [address], [place] [address] Nov, [facility] [address] [id number] [address] [place] [address], [place] [address] Oct, [facility] [address] [id number] [address] [place] [address], [place] [address] Oct, [facility] [address] [id number] [address] [place] [address], [place] [address] Sep, [facility] [address] [id number] [address] [place] [address], [place] [address] Sep, [facility] [address] [id number] [address] [place] [address], [place] [address] Sep, [facility] [address] [id number] [address] [place] [address], [place] [address] Sep, [facility] [address] [id number] [address] [place] [address], [place] [address] Aug, [facility] [address] [id number] [address] [place] [address], [place] [address] Aug, [facility] [address] [id number] [address] [place] [address], [place] [address] Aug, [facility] [address] [id number] [address] [place] [address], [place] [address] Aug, [facility] [address] [id number] [address] [place] [address], [place] [address] Aug, [facility] [address] [id number] [address] [place] [address], [place] [address] Aug, [facility] [address] [id number] [address] [place] [address], [place] [address] Jul, [facility] [address] [id number] [address] [place] [address], [place] [address] Jul, [facility] [address] [id number] [address] [place] [address], [place] [address] Jun, [facility] [address] [id number] [address] [place] [address], [place] [address] Jun, [facility] [address] [id number] [address] [place] [address], [place] [address] May, [facility] [address] [id number] [address] [place] [address], [place] [address] May, [facility] [address] [id number] [address] [place] [address], [place] [address] Apr, [facility] [address] [id number] [address] [place] [address], [place] [address] Apr, [facility] [address] [id number] [address] [place] [address], [place] [address] Apr, [facility] [address] [id number] [address] [place] [address], [place] [address] Mar, [facility] [address] [id number] [address] [place] [address], [place] [address] Mar, [facility] [address] [id number] [address] [place] [address], [place] [address] Mar, [facility] [address] [id number] [address] [place] [address], [place] [address] Mar, [facility] [address] [id number] [address] [place] [address], [place] [address] Feb, [facility] [address] [id number] [address] [place] [address], [place] [address] Feb, [facility] [address] [id number] [address] [place] [address], [place] [address] Feb, [facility] [address] [id number] [address] [place] [address], [place] [address] Feb, [facility] [address] [id number] [address] [place] [address], [place] [address] Feb, [facility] [address] [id number] [address] [place] [address], [place] [address] Feb, [facility] [address] [id number] [address] [place] [address], [place] [address] Jan, [facility] [address] [id number] [address] [place] [address], [place] [address] Jan, [facility] [address] [id number] [address] [place] [address], [place] [address] Jan, [facility] [address] [id number] [address] [place] [address], [place] [address] Jan, [facility] [address] [id number] [address] [place] [address], [place] [address] December, [facility] [address] [id number] [address] [place] [address], [place] [address] December, [facility] [address] [id number] [address] [place] [address], [place] [address] December, [facility] [address] [id number] [address] [place] [address], [place] [address] December, [facility] [address] [id number] [address] [place] [address], [place] [address] December, [facility] [address] [id number] [address] [place] [address], [place] [address] December, [facility] [address] [id number] [address] [place] [address], [place] [address] December, [facility] [address] [id number] [address] [place] [address], [place] [address] December, [facility] [address] [id number] [address] [place] [address], [place] [address] December, [facility] [address] [id number] [address] [place] [address], [place] [address] December, [facility] [address] [id number] [address] [place] [address], [place] [address] Nov, [facility] [address] [id number] [address] [place] [address], [place] [address] Nov, [facility] [address] [id number] [address] [place] [address], [place] [address] Oct, [facility] [address] [id number] [address] [place] [address], [place] [address] Oct, [facility] [address] [id number] [address] [place] [address], [place] [address] Oct, [facility] [address] [id number] [address] [place] [address], [place] [address] Oct, [facility] [address] [id number] [address] [place] [address], [place] [address] Oct, [facility] [address] [id number] [address] [place] [address], [place] [address] Oct, [facility] [address] [id number] [address] [place] [address], [place] [address] Aug, [facility] [address] [id number] [address] [place] [address], [place] [address] Aug, [facility] [address] [id number] [address] [place] [address], [place] [address] Aug, [facility] [address] [id number] [address] [place] [address], [place] [address] Aug, [facility] [address] [id number] [address] [place] [address], [place] [address] Aug, [facility] [address] [id number] [address] [place] [address], [place] [address] Aug, [facility] [address] [id number] [address] [place] [address], [place] [address] Aug, [facility] [address] [id number] [address] [place] [address], [place] [address] Aug, [facility] [address] [id number] [address] [place] [address], [place] [address] 05 Jul, 2013 [facility] [address] [id number] [address] [place] [address], [place] [address] Jul, [facility] [address] [id number] [address] [place] [address], [place] [address] Jun, [facility] [address] [id number] [address] [place] [address], [place] [address] Jun, [facility] [address] [id number] [address] [place] [address], [place] [address] Jun, [facility] [address] [id number] [address] [place] [address], [place] [address] Jun, [facility] [address] [id number] [address] [place] [address], [place] [address] Jun, [facility] [address] [id number] [address] [place] [address], [place] [address] Jun, [facility] [address] [id number] [address] [place] [address], [place] [address] May, [facility] [address] [id number] [address] [place] [address], [place] [address] May, [facility] [address] [id number] [address] [place] [address], [place] [address] Apr, [facility] [address] [id number] [address] [place] [address], [place] [address] Apr, [facility] [address] [id number] [address] [place] [address], [place] [address] Mar, [facility] [address] [id number] [address] [place] [address], [place] [address] Mar, [facility] [address] [id number] [address] [place] [address], [place] [address] Mar, [facility] [address] [id number] [address] [place] [address], [place] [address] Feb, [facility] [address] [id number] [address] [place] [address], [place] [address] Jan, [facility] [address] [id number] [address] [place] [address], [place] [address] December, [facility] [address] [id number] [address] [place] [address], [place] [address] December, [facility] [address] [id number] [address] [place] [address], [place] [address] December, [facility] [address] [id number] [address] [place] [address], [place] [address] December, [facility] [address] [id number] [address] [place] [address], [place] [address] December, [facility] [address] [id number] [address] [place] [address], [place] [address] December, [facility] [address] [id number] [address] [place] [address], [place] [address] Nov, [facility] [address] [id number] [address] [place] [address], [place] [address] Nov, [facility] [address] [id number] [address] [place] [address], [place] [address] Nov, [facility] [address] [id number] [address] [place] [address], [place] [address] 05 Oct, 2012 [facility] [address] [id number] [address] [place] [address], [place] [address] 14 Jun, 2012 [facility] [address] [id number] [address] [place] [address], [place] [address] 14 Jun, 2012 [facility] [address] [id number] [address] [place] [address], [place] [address] Jun, [facility] [address] [id number] [address] [place] [address], [place] [address] Jun, [facility] [address] [id number] [address] [place] [address], [place] [address] Apr, [facility] [address] [id number] [address] [place] [address] Mar, [facility] [address] [id number] [address] [place] [address] Mar, [facility] [address] [id number] [address] [place] [address] Jan, [facility] [address] [id number] [address] [place] [address] December, [facility] [address] [id number] [address] [place] [address] Nov, [facility] [address] [id number] [address] [place] [address] Nov, [facility] [address] [id number] [address] [place] [address] Nov, [facility] [address] [id number] [address] [place] [address] Nov, [facility] [address] [id number] [address] [place] [address] Aug, [facility] [address] [id number] [address] [place] [id number] Aug, [facility] [address] [id number] [address] [place] [id number] Jul, [facility] [address] [id number] [address] [place] [id number] Jun, [facility] [address] [id number] [address] [place] [id number] Jun, [facility] [address] [id number] [address] [place] [id number] Apr, [facility] [address] [id number] [address] [place] [id number] Feb, IMMUNIZATIONS No Known Immunizations SOCIAL HISTORY [...]
--- OUTSIDE RECORDS SUMMARY | 2020-02-11 01:30 | XMS REPORT ---
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 Name Role Phone MARI GALARZA Unavailable PROBLEMS Type Condition ICD9-CM Code [id number] Code Onset Dates Condition S tatus SNOMED Code Problem Major depressive disorder, recurrent episode, in full remission F33.42 Active 841984378 Problem ADHD, predominantly inattentive type F90.0 Active 77112780 Problem Primary insomnia F51.01 Active 397 2004 Problem Non-seasonal allergic rhinitis due to pollen J30.1 Active 35388765 Problem Migraine without aura and without status migrain osus, not intractable G43.009 Active 849977784 Problem Essential hypertension I10 Active 09654828 Problem Seasonal allergies J30.2 Active 4 85192695 Problem Moderate episode of recurrent major depressive disorder F33.1 Active 862072341 Problem Intractable migraine without aura and with status migr ainosus G43.011 Active 643463340 ALLERGIES No Information ENCOUNTERS Encounter Location Date Diagnosis [place] [address] [facility] [id number] [address] [place] [phone] Mar, [facility] [address] [facility] [id number] [address] [place] [phone] Feb, [facility] [address] [facility] [id number] [address] [place] [id number] Feb, [facility] [address] [facility] [id number] [address] [place] [address] Jan, Major depressive disorder, r ecurrent episode, in full remission F33.42 [facility] [address] [facility] [id number] [address] [place] [address] Jan, Moderate episode of recurren t major depressive disorder F33.1 ; Non-seasonal allergic rhinitis due to pollen J30.1 ; Migraine without aura and without status migrainosus, not intractable G43.009 and Sinus congestion R09.81 [facility] [address] [place] [id number] [address] [place] [phone] Jan, [place] [address] [facility] [id number] [address] [place] [address] December, Moderate episode of recurren t major depressive disorder F33.1 [facility] [address] [facility] [id number] [address] [place] [phone] December, [facility] [address] [facility] [id number] [address] [place] [phone] December, Moderate episode of recurren t major depressive disorder F33.1 [place] [address] [place] [id number] [place] [address] Nov, Moderate episode of recurren t major depressive disorder F33.1 and Intractable migraine without aura and with status migrainosus G43.011 [place] [id number] [place] [address] Nov, [place] [address] [address] Oct, Major depressive disorder, r ecurrent episode, in full remission F33.42 ; Intractable migraine without aura and with status migrainosus G43.011 ; Weight gain R63.5 ; Vision changes H53.9 and Other snf (current) drug therapy Z79.899 [facility] [address] [place] [id number] [address] [place] [address] Oct, Encounter for pre-employment examination Z02.1 [place] [address] [place] [id number] [address] [place] [phone] Oct, [facility] [address] [place] [id number] [address] [place] [id number] Sep, Acute non-recurrent maxillar y sinusitis J01.00 [facility] [address] [id number] [address] [place] [id number] 14 Sep, 2018 [facility] [address] [id number] [address] [place] [address] Aug, [facility] [address] [facility] [id number] [address] [place] [address] Jul, ADHD, predominantly inattent randall type F90.0 and Primary insomnia F51.01 [facility] [address] [facility] [id number] [address] [place] [phone] Jun, ADHD, predominantly inattent randall type F90.0 [place] [address] [facility] [id number] [address] [place] [address] May, ADHD, predominantly inattent randall type F90.0 ; Moderate episode of recurrent major depressive disorder F33.1 and Therapeutic drug monitoring Z51.81 [place] [address] [facility] [id number] [address] [place] [phone] May, [facility] [address] [facility] [id number] [address] [place] [address] Apr, ADHD, predominantly inattent randall type F90.0 [place] [address] [facility] [id number] [address] [place] [id number] 10 Apr, 2018 ADHD, predominantly inattent randall type F90.0 and Major depressive disorder, recurrent episode, in full remission F33.42 [place] [address] [facility] [id number] [address] [place] [address] Mar, ADHD, predominantly inattent randall type F90.0 and Primary insomnia F51.01 [facility] [address] [facility] [id number] [address] [place] [address] Mar, [facility] [address] [facility] [id number] [address] [place] [address] Mar, ADHD, predominantly inattent randall type F90.0 and Primary insomnia F51.01 [place] [address] [place] [id number] [address] [place] [address] Feb, ADHD, predominantly inattent randall type F90.0 and Primary insomnia F51.01 [facility] [address] [place] [id number] [address] [place] [address] Jan, ADHD, predominantly inattent randall type F90.0 and Primary insomnia F51.01 [facility] [address] [place] [id number] [address] [place] [address] December, Seasonal allergies J30.2 and Post-nasal drip R09.82 [facility] [address] [place] [id number] [address] [place] [address] December, ADHD, predominantly inattent randall type F90.0 and Primary insomnia F51.01 [place] [address] [address] Nov, ADHD, predominantly inattent randall type F90.0 [place] [address] [address] Oct, ADHD, predominantly inattent randall type F90.0 [place] [address] [address] Oct, ADHD, predominantly inattent randall type F90.0 ; Primary insomnia F51.01 and Screening, lipid Z13.220 [place] [address] [place] [id number] [address] [place] [address] Sep, ADHD, predominantly inattent randall type F90.0 [place] [address] [address] Aug, ADHD, predominantly inattent randall type F90.0 and Primary insomnia F51.01 [facility] [address] [place] [id number] [address] [place] [address] Jul, ADHD, predominantly inattent randall type F90.0 [place] [address] [address] Jul, Primary insomnia F51.01 and ADHD, predominantly inattentive type F90.0 [facility] [address] [facility] [id number] [address] [place] [id number] Jun, ADHD, predominantly inattent randall type F90.0 [facility] [address] [facility] [id number] [address] [place] [address] May, ADHD, predominantly inattent randall type F90.0 [facility] [address] [place] [id number] [address] [place] [address] Apr, ADHD, predominantly inattent randall type F90.0 [place] [address] [place] [id number] [place] [address] Mar, ADHD, predominantly inattent randall type F90.0 ; Primary insomnia F51.01 ; Major depressive disorder, recurrent episode, in full remission F33.42 and Acne comedone L70.0 [facility] [address] [place] [id number] [address] [place] [address] Mar, Major depressive disorder, r ecurrent episode, in full remission F33.42 and ADHD, predominantly inattentive type F90.0 [place] [address] [place] [id number] [address] [place] [address] Feb, ADHD, predominantly inattent randall type F90.0 [facility] [address] [place] [id number] [address] [place] [address] Feb, Primary insomnia F51.01 [facility] [address] [place] [id number] [address] [place] [address] Jan, ADHD, predominantly inattent randall type F90.0 and Primary insomnia F51.01 [facility] [address] [place] [id number] [address] [place] [address] December, ADHD, predominantly inattent randall type F90.0 and Primary insomnia F51.01 [facility] [address] [place] [id number] [address] [place] [address] Oct, ADHD, predominantly inattent randall type F90.0 and Primary insomnia F51.01 [place] [id number] [facility] [id number] [address] [place] [address] Sep, ADHD, predominantly inattent randall type F90.0 and Primary insomnia F51.01 [facility] [address] [facility] [id number] [address] [place] [address] Aug, ADHD, predominantly inattent randall type F90.0 and Primary insomnia F51.01 [place] [address] [id number] [address] [place] [address] Jul, Major depressive disorder, r ecurrent episode, in full remission F33.42 ; ADHD, predominantly inattentive type F90.0 ; Primary insomnia F51.01 ; Acute non-recurrent maxillary sinusitis J01.00 and Screening, lipid Z13.220 [facility] [address] [facility] [id number] [address] [place] [phone] Jun, Acute non-recurrent maxillar y sinusitis J01.00 [facility] [address] [id number] [address] [place] [address] Jun, ADHD, predominantly inattent randall type F90.0 [facility] [address] [id number] [address] [place] [id number] May, [facility] [address] [facility] [id number] [address] [place] [phone] Apr, [facility] [address] [id number] [address] [place] [id number] Feb, Rash R21 and Scabies B86 [place] [address] [facility] [id number] [address] [place] [phone] Feb, ADHD, predominantly inattent randall type F90.0 and Major depressive disorder, recurrent episode, in full remission F33.42 [place] [address] [facility] [id number] [address] [place] [address] Feb, [facility] [address] [id number] [address] [place] [address] Oct, [facility] [address] [id number] [address] [place] [phone] Sep, [facility] [address] [id number] [address] [place] [phone] Sep, [facility] [address] [id number] [address] [place] [phone] Aug, [facility] [address] [id number] [address] [place] [phone] Jul, [facility] [address] [id number] [address] [place] [id number] Jun, [facility] [address] [facility] [id number] [address] [place] [address] May, [facility] [address] [facility] [id number] [address] [place] [address] May, ADHD, predominantly inattent randall type F90.0 and Major depressive disorder, recurrent episode, in full remission F33.42 [facility] [address] [id number] [address] [place] [id number] Feb, Major depressive disorder, r ecurrent episode, moderate 296.32 [facility] [address] [id number] [address] [place] [phone] Feb, [facility] [address] [id number] [address] [place] [phone] Jan, [facility] [address] [id number] [address] [place] [address] Jan, [facility] [address] [facility] [id number] [address] [place] [phone] December, [facility] [address] [id number] [address] [place] [phone] Nov, [facility] [place] [facility] [address] [id number] [address] [place] [address], [place] [address] Nov, [facility] [address] [id number] [address] [place] [address], [place] [address] Oct, [facility] [address] [id number] [address] [place] [address], [place] [address] Oct, [facility] [address] [id number] [address] [place] [address], [place] [address] Sep, [facility] [address] [id number] [address] [place] [address], [place] [address] Sep, [facility] [address] [id number] [address] [place] [address], [place] [address] Sep, [facility] [address] [id number] [address] [place] [address], [place] [address] Sep, [facility] [address] [id number] [address] [place] [address], [place] [address] Aug, [facility] [address] [id number] [address] [place] [address], [place] [address] Aug, [facility] [address] [id number] [address] [place] [address], [place] [address] Aug, [facility] [address] [id number] [address] [place] [address], [place] [address] Aug, [facility] [address] [id number] [address] [place] [address], [place] [address] Aug, [facility] [address] [id number] [address] [place] [address], [place] [address] Aug, [facility] [address] [id number] [address] [place] [address], [place] [address] Jul, [facility] [address] [id number] [address] [place] [address], [place] [address] Jul, [facility] [address] [id number] [address] [place] [address], [place] [address] Jun, [facility] [place] [address] [id number] [address] [place] [address], [place] [address] Jun, [facility] [place] [address] [id number] [address] [place] [address], [place] [address] May, [facility] [place] [address] [id number] [address] [place] [address], [place] [address] May, [facility] [address] [id number] [address] [place] [address], [place] [address] Apr, [facility] [address] [id number] [address] [place] [address], [place] [address] Apr, [facility] [address] [id number] [address] [place] [address], [place] [address] Apr, [facility] [address] [id number] [address] [place] [address], [place] [address] Mar, [facility] [address] [id number] [address] [place] [address], [place] [address] Mar, [facility] [address] [id number] [address] [place] [address], [place] [address] Mar, [facility] [place] [address] [id number] [address] [place] [address], [place] [address] Mar, [facility] [address] [id number] [address] [place] [address], [place] [address] Feb, [facility] [address] [id number] [address] [place] [address], [place] [address] Feb, [facility] [address] [id number] [address] [place] [address], [place] [address] Feb, [facility] [address] [id number] [address] [place] [address], [place] [address] Feb, [facility] [address] [id number] [address] [place] [address], [place] [address] Feb, [facility] [address] [id number] [address] [place] [address], [place] [address] Feb, [facility] [address] [id number] [address] [place] [address], [place] [address] Jan, [facility] [address] [id number] [address] [place] [address], [place] [address] Jan, [facility] [address] [id number] [address] [place] [address], [place] [address] Jan, [facility] [address] [id number] [address] [place] [address], [place] [address] Jan, [facility] [address] [id number] [address] [place] [address], [place] [address] December, [facility] [address] [id number] [address] [place] [address], [place] [address] December, [facility] [address] [id number] [address] [place] [address], [place] [address] December, [facility] [address] [id number] [address] [place] [address], [place] [address] December, [facility] [address] [id number] [address] [place] [address], [place] [address] December, [facility] [address] [id number] [address] [place] [address], [place] [address] December, [facility] [address] [id number] [address] [place] [address], [place] [address] December, [facility] [address] [id number] [address] [place] [address], [place] [address] December, [facility] [address] [id number] [address] [place] [address], [place] [address] December, [facility] [address] [id number] [address] [place] [address], [place] [address] December, [facility] [address] [id number] [address] [place] [address], [place] [address] Nov, [facility] [address] [id number] [address] [place] [address], [place] [address] Nov, [facility] [address] [id number] [address] [place] [address], [place] [address] Oct, [facility] [address] [id number] [address] [place] [address], [place] [address] Oct, [facility] [address] [id number] [address] [place] [address], [place] [address] Oct, [facility] [address] [id number] [address] [place] [address], [place] [address] Oct, [facility] [address] [id number] [address] [place] [address], [place] [address] Oct, [facility] [address] [id number] [address] [place] [address], [place] [address] Oct, [facility] [address] [id number] [address] [place] [address], [place] [address] Aug, [facility] [address] [id number] [address] [place] [address], [place] [address] Aug, [facility] [address] [id number] [address] [place] [address], [place] [address] Aug, [facility] [address] [id number] [address] [place] [address], [place] [address] Aug, [facility] [address] [id number] [address] [place] [address], [place] [address] Aug, [facility] [address] [id number] [address] [place] [address], [place] [address] Aug, [facility] [address] [id number] [address] [place] [address], [place] [address] Aug, [facility] [address] [id number] [address] [place] [address], [place] [address] Aug, [facility] [address] [id number] [address] [place] [address], [place] [address] 05 Jul, 2013 [facility] [address] [id number] [address] [place] [address], [place] [address] Jul, [facility] [address] [id number] [address] [place] [address], [place] [address] Jun, [facility] [address] [id number] [address] [place] [address], [place] [address] Jun, [facility] [address] [id number] [address] [place] [address], [place] [address] Jun, [facility] [address] [id number] [address] [place] [address], [place] [address] Jun, [facility] [address] [id number] [address] [place] [address], [place] [address] Jun, [facility] [address] [id number] [address] [place] [address], [place] [address] Jun, [facility] [address] [id number] [address] [place] [address], [place] [address] May, [facility] [address] [id number] [address] [place] [address], [place] [address] May, [facility] [address] [id number] [address] [place] [address], [place] [address] Apr, [facility] [address] [id number] [address] [place] [address], [place] [address] Apr, [facility] [address] [id number] [address] [place] [address], [place] [address] Mar, [facility] [place] [address] [id number] [address] [place] [address], [place] [address] Mar, [facility] [place] [address] [id number] [address] [place] [address], [place] [address] Mar, [facility] [place] [address] [id number] [address] [place] [address], [place] [address] Feb, [facility] [place] [address] [id number] [address] [place] [address], [place] [address] Jan, [facility] [address] [id number] [address] [place] [address], [place] [address] December, [facility] [address] [id number] [address] [place] [address], [place] [address] December, [facility] [address] [id number] [address] [place] [address], [place] [address] December, [facility] [address] [id number] [address] [place] [address], [place] [address] December, [facility] [address] [id number] [address] [place] [address], [place] [address] December, [facility] [address] [id number] [address] [place] [address], [place] [address] December, [facility] [address] [id number] [address] [place] [address], [place] [address] Nov, [facility] [address] [id number] [address] [place] [address], [place] [address] Nov, [facility] [address] [id number] [address] [place] [address], [place] [address] Nov, [facility] [address] [id number] [address] [place] [address], [place] [address] 05 Oct, 2012 [facility] [address] [id number] [address] [place] [address], [place] [address] 14 Jun, 2012 [facility] [address] [id number] [address] [place] [address], [place] [address] 14 Jun, 2012 [facility] [address] [id number] [address] [place] [address], [place] [address] Jun, [facility] [address] [id number] [address] [place] [address], [place] [address] Jun, [facility] [address] [id number] [address] [place] [address], [place] [address] Apr, [facility] [address] [id number] [address] [place] [address] Mar, [facility] [facility] [address] [id number] [address] [place] [id number] Mar, [facility] [address] [id number] [address] [place] [id number] Jan, [facility] [address] [id number] [address] [place] [id number] December, [facility] [address] [id number] [address] [place] [id number] Nov, [facility] [address] [id number] [address] [place] [phone] Nov, [facility] [address] [id number] [address] [place] [id number] Nov, [facility] [address] [id number] [address] [place] [phone] Nov, [facility] [address] [id number] [address] [place] [id number] Aug, [facility] [address] [id number] [address] [place] [id number] Aug, [facility] [address] [id number] [address] [place] [id number] Jul, [facility] [address] [id number] [address] [place] [id number] Jun, [facility] [address] [id number] [address] [place] [id number] Jun, [facility] [address] [id number] [address] [place] [id number] Apr, [facility] [address] [id number] [address] [place] [id number] Feb, IMMUNIZATIONS No Known Immunizations SOCIAL HISTORY [...]
--- OUTSIDE RECORDS SUMMARY | 2020-02-11 01:30 | XMS REPORT ---
Author Author Elaine GALARZA Organization [facility] Address [address] [place] [address] Care Team Providers Care Criminal Psychologist Name Role Phone MARI GALARZA Unavailable PROBLEMS Type Condition ICD9-CM Code SMY33-OP Code Onset Dates Condition S tatus SNOMED Code Problem Major depressive disorder, recurrent episode, in full remission F33.42 Active 521396655 Problem ADHD, predominantly inattentive type F90.0 Active 23010182 Problem Primary insomnia F51.01 Active 397 2004 Problem Non-seasonal allergic rhinitis due to pollen J30.1 Active 31059096 Problem Migraine without aura and without status migrain osus, not intractable G43.009 Active 262316419 Problem Essential hypertension I10 Active 28156282 Problem Seasonal allergies J30.2 Active 4 23865277 Problem Moderate episode of recurrent major depressive disorder F33.1 Active 561974624 Problem Intractable migraine without aura and with status migr ainosus G43.011 Active [id number] ALLERGIES No Information ENCOUNTERS Encounter Location Date Diagnosis [facility] [address] [facility] [place] [id number] [address] [place] [phone] Apr, [facility] [address] [facility] [place] [id number] [address] [place] [phone] Mar, [facility] [address] [facility] [place] [id number] [address] [place] [phone] Feb, [facility] [address] [facility] [place] [id number] [address] [place] [address] Feb, [facility] [address] [facility] [place] [id number] [address] [place] [address] Jan, Major depressive disorder, r ecurrent episode, in full remission F33.42 [facility] [address] [facility] [place] [id number] [address] [place] [address] Jan, Moderate episode of recurren t major depressive disorder F33.1 ; Non-seasonal allergic rhinitis due to pollen J30.1 ; Migraine without aura and without status migrainosus, not intractable G43.009 and Sinus congestion R09.81 [facility] [address] [facility] [place] [id number] [address] [place] [phone] Jan, [facility] [address] [facility] [place] [id number] [address] [place] [phone] December, Moderate episode of recurren t major depressive disorder F33.1 [facility] [address] [id number] [address] [place] [address] December, [facility] [address] [facility] [place] [id number] [address] [place] [address] December, Moderate episode of recurren t major depressive disorder F33.1 [facility] [address] [facility] [place] [id number] [address] [place] [address] Nov, Moderate episode of recurren t major depressive disorder F33.1 and Intractable migraine without aura and with status migrainosus G43.011 [facility] [address] [facility] [place] [id number] [address] [place] [id number] Nov, [facility] [address] [facility] [place] [id number] [address] [place] [id number] Oct, Major depressive disorder, r ecurrent episode, in full remission F33.42 ; Intractable migraine without aura and with status migrainosus G43.011 ; Weight gain R63.5 ; Vision changes H53.9 and 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 [facility] [address] [facility] [place] [id number] [address] [place] [address] Oct, Encounter for pre-employment examination Z02.1 [facility] [address] [facility] [place] [id number] [address] [place] [id number] 15 Oct, 2018 [facility] [address] [facility] [place] [id number] [address] [place] [id number] Sep, Acute non-recurrent maxillar y sinusitis J01.00 [facility] [address] [id number] [address] [place] [id number] 14 Sep, 2018 [facility] [address] [id number] [address] [place] [phone] Aug, [facility] [address] [id number] [address] [place] [address] Jul, ADHD, predominantly inattent randall type F90.0 and Primary insomnia F51.01 [facility] [address] [id number] [address] [place] [address] Jun, ADHD, predominantly inattent randall type F90.0 [facility] [address] [id number] [address] [place] [address] May, ADHD, predominantly inattent randall type F90.0 ; Moderate episode of recurrent major depressive disorder F33.1 and Therapeutic drug monitoring Z51.81 [facility] [address] [id number] [address] [place] [id number] May, [facility] [address] [id number] [address] [place] [id number] 28 Apr, 2018 ADHD, predominantly inattent ranadll type F90.0 [facility] [address] [id number] [address] [place] [id number] 10 Apr, 2018 ADHD, predominantly inattent randall type F90.0 and Major depressive disorder, recurrent episode, in full remission F33.42 [facility] [address] [id number] [address] [place] [address] Mar, ADHD, predominantly inattent randall type F90.0 and Primary insomnia F51.01 [facility] [address] [id number] [address] [place] [address] Mar, [facility] [address] [id number] [address] [place] [address] Mar, ADHD, predominantly inattent randall type F90.0 and Primary insomnia F51.01 [facility] [address] [facility] [place] [id number] [address] [place] [phone] Feb, ADHD, predominantly inattent randall type F90.0 and Primary insomnia F51.01 [facility] [address] [facility] [place] [id number] [address] [place] [phone] Jan, ADHD, predominantly inattent randall type F90.0 and Primary insomnia F51.01 [facility] [address] [facility] [place] [id number] [address] [place] [address] December, Seasonal allergies J30.2 and Post-nasal drip R09.82 [facility] [address] [facility] [place] [id number] [address] [place] [id number] December, ADHD, predominantly inattent randall type F90.0 and Primary insomnia F51.01 [facility] [address] [place] [id number] [address] [place] [address] Nov, ADHD, predominantly inattent randall type F90.0 [facility] [address] [facility] [place] [id number] [address] [place] [address] Oct, ADHD, predominantly inattent randall type F90.0 [facility] [address] [facility] [place] [id number] [address] [place] [address] Oct, ADHD, predominantly inattent randall type F90.0 ; Primary insomnia F51.01 and Screening, lipid Z13.220 [facility] [address] [facility] [place] [id number] [address] [place] [id number] Sep, ADHD, predominantly inattent randall type F90.0 [facility] [place] [address] [facility] [place] [id number] [address] [place] [id number] Aug, ADHD, predominantly inattent randall type F90.0 and Primary insomnia F51.01 [facility] [address] [place] [id number] [address] [place] [address] Jul, ADHD, predominantly inattent randall type F90.0 [facility] [address] [id number] [address] [place] [id number] Jul, Primary insomnia F51.01 and ADHD, predominantly inattentive type F90.0 [facility] [address] [id number] [address] [place] [id number] Jun, ADHD, predominantly inattent randall type F90.0 [facility] [address] [id number] [address] [place] [id number] May, ADHD, predominantly inattent randall type F90.0 [facility] [address] [id number] [address] [place] [address] Apr, ADHD, predominantly inattent randall type F90.0 [facility] [address] [id number] [address] [place] [address] Mar, ADHD, predominantly inattent randall type F90.0 ; Primary insomnia F51.01 ; Major depressive disorder, recurrent episode, in full remission F33.42 and Acne comedone L70.0 [facility] [address] [id number] [address] [place] [id number] Mar, Major depressive disorder, r ecurrent episode, in full remission F33.42 and ADHD, predominantly inattentive type F90.0 [facility] [address] [id number] [address] [place] [address] Feb, ADHD, predominantly inattent randall type F90.0 [facility] [address] [id number] [address] [place] [id number] Feb, Primary insomnia F51.01 [facility] [address] [id number] [address] [place] [address] Jan, ADHD, predominantly inattent randall type F90.0 and Primary insomnia F51.01 [facility] [address] [id number] [address] [place] [id number] December, ADHD, predominantly inattent randall type F90.0 and Primary insomnia F51.01 [facility] [address] [facility] [place] [id number] [address] [place] [id number] Oct, ADHD, predominantly inattent randall type F90.0 and Primary insomnia F51.01 [facility] [address] [facility] [place] [id number] [address] [place] [address] Sep, ADHD, predominantly inattent randall type F90.0 and Primary insomnia F51.01 [place] [address] [facility] [place] [id number] [address] [place] [id number] Aug, ADHD, predominantly inattent randall type F90.0 and Primary insomnia F51.01 [place] [address] [facility] [place] [id number] [address] [place] [id number] Jul, Major depressive disorder, r ecurrent episode, in full remission F33.42 ; ADHD, predominantly inattentive type F90.0 ; Primary insomnia F51.01 ; Acute non-recurrent maxillary sinusitis J01.00 and Screening, lipid Z13.220 [facility] [address] [facility] [place] [id number] [address] [place] [id number] Jun, Acute non-recurrent maxillar y sinusitis J01.00 [facility] [address] [facility] [place] [id number] [address] [place] [address] Jun, ADHD, predominantly inattent randall type F90.0 [facility] [address] [facility] [place] [id number] [address] [place] [phone] May, [facility] [address] [facility] [place] [id number] [address] [place] [id number] Apr, [facility] [address] [facility] [place] [id number] [address] [place] [phone] Feb, Rash R21 and Scabies B86 [facility] [address] [facility] [place] [id number] [address] [place] [address] Feb, ADHD, predominantly inattent randall type F90.0 and Major depressive disorder, recurrent episode, in full remission F33.42 [facility] [address] [id number] [address] [place] [id number] Feb, [facility] [address] [id number] [address] [place] [id number] Oct, [facility] [address] [id number] [address] [place] [id number] Sep, [facility] [address] [id number] [address] [place] [phone] Sep, [facility] [address] [id number] [address] [place] [id number] Aug, [facility] [address] [id number] [address] [place] [id number] Jul, [facility] [address] [id number] [address] [place] [phone] Jun, [facility] [address] [id number] [address] [place] [id number] May, [facility] [address] [id number] [address] [place] [id number] May, ADHD, predominantly inattent randall type F90.0 and Major depressive disorder, recurrent episode, in full remission F33.42 [facility] [address] [id number] [address] [place] [address] Feb, Major depressive disorder, r ecurrent episode, moderate 296.32 [facility] [address] [id number] [address] [place] [id number] Feb, [facility] [address] [id number] [address] [place] [phone] Jan, [facility] [address] [id number] [address] [place] [phone] Jan, [facility] [address] [id number] [address] [place] [id number] December, [facility] [address] [id number] [address] [place] [address], [place] [address] 14 Nov, 2014 [facility] [address] [id number] [address] [place] [address], [place] [address] 13 Nov, 2014 [facility] [address] [id number] [address] [place] [address], [place] [address] Oct, [facility] [address] [id number] [address] [place] [address], [place] [address] Oct, [facility] [address] [id number] [address] [place] [address], [place] [address] Sep, [facility] [address] [id number] [address] [place] [address], [place] [address] Sep, [facility] [address] [id number] [address] [place] [address], [place] [address] Sep, [facility] [address] [id number] [address] [place] [address], [place] [address] Sep, [facility] [address] [id number] [address] [place] [address], [place] [address] Aug, [facility] [address] [id number] [address] [place] [address], [place] [address] Aug, [facility] [address] [id number] [address] [place] [address], [place] [address] Aug, [facility] [address] [id number] [address] [place] [address], [place] [address] Aug, [facility] [address] [id number] [address] [place] [address], [place] [address] Aug, [facility] [address] [id number] [address] [place] [address], [place] [address] Aug, [facility] [address] [id number] [address] [place] [address], [place] [address] Jul, [facility] [address] [id number] [address] [place] [address], [place] [address] Jul, [facility] [address] [id number] [address] [place] [address], [place] [address] Jun, [facility] [address] [id number] [address] [place] [address], [place] [address] Jun, [facility] [address] [id number] [address] [place] [address], [place] [address] May, [facility] [address] [id number] [address] [place] [address], [place] [address] May, [facility] [address] [id number] [address] [place] [address], [place] [address] Apr, [facility] [address] [id number] [address] [place] [address], [place] [address] Apr, [facility] [address] [id number] [address] [place] [address], [place] [address] Apr, [facility] [address] [id number] [address] [place] [address], [place] [address] Mar, [facility] [address] [id number] [address] [place] [address], [place] [address] Mar, [facility] [address] [id number] [address] [place] [address], [place] [address] Mar, [facility] [address] [id number] [address] [place] [address], [place] [address] Mar, [facility] [address] [id number] [address] [place] [address], [place] [address] Feb, [facility] [address] [id number] [address] [place] [address], [place] [address] Feb, [facility] [address] [id number] [address] [place] [address], [place] [address] Feb, [facility] [address] [id number] [address] [place] [address], [place] [address] Feb, [facility] [address] [id number] [facility] [place] [address] Feb, [facility] [address] [id number] [address] [place] [address], [place] [address] Feb, [facility] [address] [id number] [address] [place] [address], [place] [address] Jan, [facility] [address] [id number] [address] [place] [address], [place] [address] Jan, [facility] [address] [id number] [address] [place] [address], [place] [address] Jan, [facility] [address] [id number] [address] [place] [address], [place] [address] Jan, [facility] [address] [id number] [address] [place] [address], [place] [address] December, [facility] [address] [id number] [address] [place] [address], [place] [address] December, [facility] [address] [id number] [address] [place] [address], [place] [address] December, [facility] [address] [id number] [address] [place] [address], [place] [address] December, [facility] [address] [id number] [address] [place] [address], [place] [address] December, [facility] [address] [id number] [address] [place] [address], [place] [address] December, [facility] [address] [id number] [address] [place] [address], [place] [address] December, [facility] [address] [id number] [address] [place] [address], [place] [address] December, [facility] [address] [id number] [address] [place] [address], [place] [address] December, [facility] [address] [id number] [address] [place] [address], [place] [address] December, [facility] [address] [id number] [facility] [place] [address] Nov, [facility] [address] [id number] [address] [place] [address], [place] [address] Nov, [facility] [address] [id number] [address] [place] [address], [place] [address] Oct, [facility] [address] [id number] [address] [place] [address], [place] [address] Oct, [facility] [address] [id number] [address] [place] [address], [place] [address] Oct, [facility] [address] [id number] [address] [place] [address], [place] [address] Oct, [facility] [address] [id number] [address] [place] [address], [place] [address] Oct, [facility] [address] [id number] [address] [place] [address], [place] [address] Oct, [facility] [address] [id number] [address] [place] [address], [place] [address] Aug, [facility] [address] [id number] [address] [place] [address], [place] [address] Aug, [facility] [address] [id number] [address] [place] [address], [place] [address] Aug, [facility] [address] [id number] [address] [place] [address], [place] [address] Aug, [facility] [address] [id number] [address] [place] [address], [place] [address] Aug, [facility] [address] [id number] [address] [place] [address], [place] [address] Aug, [facility] [address] [id number] [address] [place] [address], [place] [address] Aug, [facility] [address] [id number] [address] [place] [address], [place] [address] Aug, [facility] [address] [id number] [address] [place] [address], [place] [address] Jul, [facility] [address] [id number] [address] [place] [address], [place] [address] Jul, [facility] [address] [id number] [address] [place] [address], [place] [address] Jun, [facility] [address] [id number] [address] [place] [address], [place] [address] Jun, [facility] [address] [id number] [address] [place] [address], [place] [address] Jun, [facility] [address] [id number] [address] [place] [address], [place] [address] Jun, [facility] [address] [id number] [address] [place] [address], [place] [address] Jun, [facility] [address] [id number] [address] [place] [address], [place] [address] Jun, [facility] [address] [id number] [address] [place] [address], [place] [address] May, [facility] [address] [id number] [address] [place] [address], [place] [address] May, [facility] [address] [id number] [address] [place] [address], [place] [address] Apr, [facility] [address] [id number] [address] [place] [address], [place] [address] Apr, [facility] [address] [id number] [address] [place] [address], [place] [address] Mar, [facility] [address] [id number] [address] [place] [address], [place] [address] Mar, [facility] [address] [id number] [address] [place] [address], [place] [address] Mar, [facility] [address] [id number] [address] [place] [address], [place] [address] Feb, [facility] [address] [id number] [address] [place] [address], [place] [address] Jan, [facility] [address] [id number] [address] [place] [address], [place] [address] December, [facility] [address] [id number] [address] [place] [address], [place] [address] December, [facility] [address] [id number] [address] [place] [address], [place] [address] December, [facility] [address] [id number] [address] [place] [address], [place] [address] December, [facility] [facility] [address] [id number] [address] [place] [address], [place] [address] December, [facility] [address] [id number] [address] [place] [address], [place] [address] December, [facility] [address] [id number] [address] [place] [address], [place] [address] Nov, [facility] [address] [id number] [address] [place] [address], [place] [address] Nov, [facility] [address] [id number] [address] [place] [address], [place] [address] Nov, [facility] [address] [id number] [address] [place] [address], [place] [address] 05 Oct, 2012 [facility] [address] [id number] [address] [place] [address], [place] [address] Jun, [facility] [address] [id number] [address] [place] [address], [place] [address] Jun, [facility] [address] [id number] [address] [place] [address], [place] [address] Jun, [facility] [address] [id number] [address] [place] [address], [place] [address] Jun, [facility] [address] [id number] [address] [place] [address], [place] [address] 18 Apr, 2012 [facility] [address] [id number] [address] [place] [address], [place] [address] Mar, [facility] [address] [id number] [address] [place] [address], [place] [address] Mar, [facility] [address] [id number] [address] [place] [address], [place] [address] Jan, [facility] [address] [id number] [address] [place] [address], [place] [address] December, [facility] [address] [id number] [address] [place] [address], [place] [address] Nov, [facility] [address] [id number] [address] [place] [address], [place] [address] Nov, [facility] [address] [id number] [address] [place] [address], [place] [address] Nov, [facility] [address] [id number] [address] [place] [address], [place] [address] Nov, [facility] [address] [id number] [address] [place] [address], [place] [address] Aug, [facility] [address] [id number] [address] [place] [address], [place] [address] Aug, [facility] [address] [id number] [address] [place] [address], [place] [address] Jul, [facility] [address] [id number] [address] [place] [address], [place] [address] Jun, [facility] [address] [id number] [address] [place] [address], [place] [address] Jun, [facility] [address] [id number] [address] [place] [address], [place] [address] 14 Apr, 2011 [facility] [address] [id number] [address] [place] [address] Feb, IMMUNIZATIONS No Known Immunizations SOCIAL HISTORY [...]
[2020-02-11] MEDS ORDERED: LORazepam INJ 2 MG/ML (ATIVAN) VIAL ONE (01:31)
--- OUTSIDE RECORDS SUMMARY | 2020-02-11 01:31 | XMS REPORT ---
Author Author Elaine GALARZA Organization [facility] Address [address] [place] [address] Care Team Providers Care Supervisor Type Bar And Segment Name Role Phone MARI GALARZA Unavailable PROBLEMS Type Condition ICD9-CM Code [id number] Code Onset Dates Condition S tatus SNOMED Code Problem Major depressive disorder, recurrent episode, in full remission F33.42 Active 874008142 Problem ADHD, predominantly inattentive type F90.0 Active 46833903 Problem Primary insomnia F51.01 Active 397 2004 Problem Non-seasonal allergic rhinitis due to pollen J30.1 Active 83927812 Problem Migraine without aura and without status migrain osus, not intractable G43.009 Active 671030496 Problem Essential hypertension I10 Active 98004418 Problem Seasonal allergies J30.2 Active 4 66404590 Problem Moderate episode of recurrent major depressive disorder F33.1 Active 957689254 Problem Intractable migraine without aura and with status migr ainosus G43.011 Active 777308540 ALLERGIES No Information ENCOUNTERS Encounter Location Date Diagnosis [place] [id number] [place] [id number] Feb, [facility] [address] [place] [id number] [address] [place] [address] Feb, [facility] [address] [place] [id number] [address] [place] [id number] Jan, Major depressive disorder, r ecurrent episode, in full remission F33.42 [facility] [address] [place] [id number] [address] [place] [address] Jan, Moderate episode of recurren t major depressive disorder F33.1 ; Non-seasonal allergic rhinitis due to pollen J30.1 ; Migraine without aura and without status migrainosus, not intractable G43.009 and Sinus congestion R09.81 [facility] [address] [facility] [id number] [address] [place] [address] Jan, [place] [address] [place] [id number] [place] [address] December, Moderate episode of recurren t major depressive disorder F33.1 [place] [address] [place] [id number] [place] [address] December, [place] [address] [place] [id number] [address] [place] [phone] December, Moderate episode of recurren t major depressive disorder F33.1 [place] [address] [place] [id number] [address] [place] [phone] Nov, Moderate episode of recurren t major depressive disorder F33.1 and Intractable migraine without aura and with status migrainosus G43.011 [place] [address] [place] [id number] [place] [phone] Nov, [place] [address] [place] [address] Oct, Major depressive disorder, r ecurrent episode, in full remission F33.42 ; Intractable migraine without aura and with status migrainosus G43.011 ; Weight gain R63.5 ; Vision changes H53.9 and Other senior care (current) drug therapy Z79.899 [place] [address] [place] [address] Oct, Encounter for pre-employment examination Z02.1 [facility] [address] [place] [id number] 15 Oct, 2018 [facility] [address] [place] [id number] [place] [id number] 20 Sep, 2018 Acute non-recurrent maxillar y sinusitis J01.00 [place] [address] [place] [id number] [place] [address] 14 Sep, 2018 [place] [address] [id number] [address] [place] [phone] Aug, [facility] [address] [id number] [address] [place] [address] Jul, ADHD, predominantly inattent randall type F90.0 and Primary insomnia F51.01 [facility] [address] [id number] [address] [place] [address] Jun, ADHD, predominantly inattent randall type F90.0 [facility] [address] [id number] [address] [place] [id number] May, ADHD, predominantly inattent randall type F90.0 ; Moderate episode of recurrent major depressive disorder F33.1 and Therapeutic drug monitoring Z51.81 [facility] [address] [id number] [address] [place] [phone] May, [facility] [address] [id number] [address] [place] [id number] Apr, ADHD, predominantly inattent randall type F90.0 [facility] [address] [id number] [address] [place] [phone] 10 Apr, 2018 ADHD, predominantly inattent randlal type F90.0 and Major depressive disorder, recurrent episode, in full remission F33.42 [facility] [address] [id number] [address] [place] [address] Mar, ADHD, predominantly inattent randall type F90.0 and Primary insomnia F51.01 [facility] [address] [id number] [address] [place] [address] Mar, [facility] [address] [id number] [address] [place] [address] Mar, ADHD, predominantly inattent randall type F90.0 and Primary insomnia F51.01 [facility] [address] [id number] [address] [place] [id number] Feb, ADHD, predominantly inattent randall type F90.0 and Primary insomnia F51.01 [facility] [address] [facility] [id number] [address] [place] [address] Jan, ADHD, predominantly inattent randall type F90.0 and Primary insomnia F51.01 [facility] [address] [facility] [id number] [address] [place] [address] December, Seasonal allergies J30.2 and Post-nasal drip R09.82 [facility] [address] [facility] [id number] [address] [place] [address] December, ADHD, predominantly inattent randall type F90.0 and Primary insomnia F51.01 [place] [address] [facility] [id number] [address] [place] [phone] Nov, ADHD, predominantly inattent randall type F90.0 [place] [address] [facility] [id number] [address] [place] [address] Oct, ADHD, predominantly inattent randall type F90.0 [facility] [address] [facility] [id number] [address] [place] [address] Oct, ADHD, predominantly inattent randall type F90.0 ; Primary insomnia F51.01 and Screening, lipid Z13.220 [place] [address] [place] [id number] [address] [place] [address] Sep, ADHD, predominantly inattent randall type F90.0 [facility] [address] [facility] [id number] [address] [place] [address] Aug, ADHD, predominantly inattent randall type F90.0 and Primary insomnia F51.01 [facility] [address] [facility] [id number] [address] [place] [address] Jul, ADHD, predominantly inattent randall type F90.0 [place] [address] [facility] [id number] [address] [place] [address] Jul, Primary insomnia F51.01 and ADHD, predominantly inattentive type F90.0 [place] [address] [place] [id number] [address] [place] [address] Jun, ADHD, predominantly inattent randall type F90.0 [facility] [address] [id number] [address] [place] [address] May, ADHD, predominantly inattent randall type F90.0 [facility] [address] [facility] [id number] [address] [place] [address] Apr, ADHD, predominantly inattent randall type F90.0 [facility] [address] [id number] [address] [place] [phone] Mar, ADHD, predominantly inattent randall type F90.0 ; Primary insomnia F51.01 ; Major depressive disorder, recurrent episode, in full remission F33.42 and Acne comedone L70.0 [facility] [address] [facility] [id number] [address] [place] [phone] Mar, Major depressive disorder, r ecurrent episode, in full remission F33.42 and ADHD, predominantly inattentive type F90.0 [facility] [address] [facility] [id number] [address] [place] [address] Feb, ADHD, predominantly inattent randall type F90.0 [facility] [address] [facility] [id number] [address] [place] [phone] Feb, Primary insomnia F51.01 [facility] [address] [facility] [id number] [address] [place] [address] Jan, ADHD, predominantly inattent randall type F90.0 and Primary insomnia F51.01 [facility] [address] [facility] [id number] [address] [place] [address] December, ADHD, predominantly inattent randall type F90.0 and Primary insomnia F51.01 [facility] [address] [facility] [id number] [address] [place] [address] Oct, ADHD, predominantly inattent randall type F90.0 and Primary insomnia F51.01 [facility] [address] [facility] [id number] [address] [place] [address] Sep, ADHD, predominantly inattent randall type F90.0 and Primary insomnia F51.01 [facility] [address] [facility] [id number] [address] [place] [address] Aug, ADHD, predominantly inattent randall type F90.0 and Primary insomnia F51.01 [place] [address] [facility] [id number] [address] [place] [address] Jul, Major depressive disorder, r ecurrent episode, in full remission F33.42 ; ADHD, predominantly inattentive type F90.0 ; Primary insomnia F51.01 ; Acute non-recurrent maxillary sinusitis J01.00 and Screening, lipid Z13.220 [facility] [address] [facility] [id number] [address] [place] [address] Jun, Acute non-recurrent maxillar y sinusitis J01.00 [facility] [address] [facility] [id number] [address] [place] [address] Jun, ADHD, predominantly inattent randall type F90.0 [facility] [address] [facility] [id number] [address] [place] [phone] May, [facility] [address] [facility] [id number] [address] [place] [phone] Apr, [facility] [address] [facility] [id number] [address] [place] [id number] Feb, Rash R21 and Scabies B86 [facility] [address] [facility] [id number] [address] [place] [phone] Feb, ADHD, predominantly inattent randall type F90.0 and Major depressive disorder, recurrent episode, in full remission F33.42 [facility] [address] [facility] [id number] [address] [place] [phone] Feb, [place] [address] [facility] [id number] [address] [place] [phone] Oct, [facility] [address] [id number] [address] [place] [phone] Sep, [facility] [address] [id number] [address] [place] [address] Sep, [facility] [address] [id number] [address] [place] [phone] Aug, [facility] [address] [id number] [address] [place] [address] Jul, [facility] [address] [id number] [address] [place] [phone] Jun, [facility] [address] [id number] [address] [place] [address] May, [facility] [address] [facility] [id number] [address] [place] [phone] May, ADHD, predominantly inattent randall type F90.0 and Major depressive disorder, recurrent episode, in full remission F33.42 [facility] [address] [id number] [address] [place] [address] Feb, Major depressive disorder, r ecurrent episode, moderate 296.32 [facility] [address] [id number] [address] [place] [phone] Feb, [facility] [address] [id number] [address] [place] [address] Jan, [facility] [address] [id number] [address] [place] [address] Jan, [facility] [address] [id number] [address] [place] [address] December, [facility] [address] [id number] [address] [place] [phone] Nov, [facility] [address] [id number] [address] [place] [phone] Nov, [facility] [address] [id number] [address] [place] [address], [place] [address] Oct, [facility] [address] [id number] [address] [place] [address], [place] [address] Oct, [facility] [address] [id number] [address] [place] [address], [place] [address] Sep, [facility] [address] [id number] [address] [place] [address], [place] [address] Sep, [facility] [address] [id number] [address] [place] [address], [place] [address] Sep, [facility] [address] [id number] [address] [place] [address], [place] [address] Sep, [facility] [address] [id number] [address] [place] [address], [place] [address] Aug, [facility] [address] [id number] [address] [place] [address], [place] [address] Aug, [facility] [address] [id number] [address] [place] [address], [place] [address] Aug, [facility] [address] [id number] [address] [place] [address], [place] [address] Aug, [facility] [address] [id number] [address] [place] [address], [place] [address] Aug, [facility] [address] [id number] [address] [place] [address], [place] [address] Aug, [facility] [address] [id number] [address] [place] [address], [place] [address] Jul, [facility] [address] [id number] [address] [place] [address], [place] [address] Jul, [facility] [address] [id number] [address] [place] [address], [place] [address] Jun, [facility] [address] [id number] [address] [place] [address], [place] [address] Jun, [facility] [address] [id number] [address] [place] [address], [place] [address] May, [facility] [address] [id number] [address] [place] [address], [place] [address] May, [facility] [address] [id number] [address] [place] [address], [place] [address] Apr, [facility] [address] [id number] [address] [place] [address], [place] [address] Apr, [facility] [address] [id number] [address] [place] [address], [place] [address] Apr, [facility] [address] [id number] [address] [place] [address], [place] [address] Mar, [facility] [address] [id number] [address] [place] [address], [place] [address] Mar, [facility] [address] [id number] [address] [place] [address], [place] [address] Mar, [facility] [address] [id number] [address] [place] [address], [place] [address] Mar, [facility] [address] [id number] [address] [place] [address], [place] [address] Feb, [facility] [address] [id number] [address] [place] [address], [place] [address] Feb, [facility] [address] [id number] [address] [place] [address], [place] [address] Feb, [facility] [address] [id number] [address] [place] [address], [place] [address] Feb, [facility] [address] [id number] [address] [place] [address], [place] [address] Feb, [facility] [address] [id number] [address] [place] [address], [place] [address] Feb, [facility] [address] [id number] [facility] [address] Jan, [facility] [address] [id number] [address] [place] [address], [place] [address] Jan, [facility] [address] [id number] [address] [place] [address], [place] [address] Jan, [facility] [address] [id number] [address] [place] [address], [place] [address] Jan, [facility] [address] [id number] [address] [place] [address], [place] [address] December, [facility] [address] [id number] [address] [place] [address], [place] [address] December, [facility] [address] [id number] [address] [place] [address], [place] [address] December, [facility] [address] [id number] [address] [place] [address], [place] [address] December, [facility] [address] [id number] [address] [place] [address], [place] [address] December, [facility] [address] [id number] [address] [place] [address], [place] [address] December, [facility] [address] [id number] [address] [place] [address], [place] [address] December, [facility] [address] [id number] [address] [place] [address], [place] [address] December, [facility] [address] [id number] [address] [place] [address], [place] [address] December, [facility] [address] [id number] [address] [place] [address], [place] [address] December, [facility] [address] [id number] [address] [place] [address], [place] [address] Nov, [facility] [address] [id number] [address] [place] [address], [place] [address] Nov, [facility] [address] [id number] [address] [place] [address], [place] [address] Oct, [facility] [address] [id number] [address] [place] [address], [place] [address] Oct, [facility] [address] [id number] [address] [place] [address], [place] [address] Oct, [facility] [address] [id number] [address] [place] [address], [place] [address] Oct, [facility] [address] [id number] [address] [place] [address], [place] [address] Oct, [facility] [address] [id number] [address] [place] [address], [place] [address] Oct, [facility] [address] [id number] [address] [place] [address], [place] [address] Aug, [facility] [address] [id number] [address] [place] [address], [place] [address] Aug, [facility] [address] [id number] [address] [place] [address], [place] [address] Aug, [facility] [address] [id number] [address] [place] [address], [place] [address] Aug, [facility] [address] [id number] [address] [place] [address], [place] [address] Aug, [facility] [address] [id number] [address] [place] [address], [place] [address] Aug, [facility] [address] [id number] [address] [place] [address], [place] [address] Aug, [facility] [address] [id number] [address] [place] [address], [place] [address] Aug, [facility] [address] [id number] [address] [place] [address], [place] [address] Jul, [facility] [address] [id number] [address] [place] [address], [place] [address] Jul, [facility] [address] [id number] [address] [place] [address], [place] [address] Jun, [facility] [address] [id number] [address] [place] [address], [place] [address] Jun, [facility] [address] [id number] [address] [place] [address], [place] [address] Jun, [facility] [address] [id number] [address] [place] [address], [place] [address] Jun, [facility] [address] [id number] [address] [place] [address], [place] [address] Jun, [facility] [address] [id number] [address] [place] [address], [place] [address] Jun, [facility] [address] [id number] [address] [place] [address], [place] [address] May, [facility] [address] [id number] [address] [place] [address], [place] [address] May, [facility] [address] [id number] [address] [place] [address], [place] [address] Apr, [facility] [address] [id number] [address] [place] [address], [place] [address] Apr, [facility] [address] [id number] [address] [place] [address], [place] [address] Mar, [facility] [address] [id number] [address] [place] [address], [place] [address] Mar, [facility] [address] [id number] [address] [place] [address], [place] [address] Mar, [facility] [address] [id number] [address] [place] [address], [place] [address] Feb, [facility] [address] [id number] [address] [place] [address], [place] [address] Jan, [facility] [address] [id number] [address] [place] [address], [place] [address] December, [facility] [address] [id number] [address] [place] [address], [place] [address] December, [facility] [address] [id number] [address] [place] [address], [place] [address] December, [facility] [address] [id number] [address] [place] [address], [place] [address] December, [facility] [address] [id number] [address] [place] [address], [place] [address] December, [facility] [address] [id number] [address] [place] [address], [place] [address] December, [facility] [address] [id number] [address] [place] [address], [place] [address] Nov, [facility] [address] [id number] [address] [place] [address], [place] [address] Nov, [facility] [address] [id number] [address] [place] [address], [place] [id number] 08 Nov, 2012 [facility] [address] [id number] [address] [place] [address], [place] [id number] 05 Oct, 2012 [facility] [address] [id number] [address] [place] [address], [place] [id number] 14 Jun, 2012 [facility] [address] [id number] [address] [place] [address], [place] [id number] 14 Jun, 2012 [facility] [address] [id number] [address] [place] [address], [place] [address] Jun, [facility] [address] [id number] [address] [place] [address], [place] [address] Jun, [facility] [address] [id number] [address] [place] [address], [place] [id number] 18 Apr, 2012 [facility] [address] [id number] [address] [place] [address], [place] [address] Mar, [facility] [address] [id number] [address] [place] [id number] Mar, [facility] [address] [id number] [place] [id number] Jan, [facility] [address] [id number] [address] [place] [id number] December, [facility] [address] [id number] [address] [place] [id number] Nov, [facility] [address] [id number] [place] [id number] Nov, [facility] [address] [id number] [place] [id number] Nov, [facility] [address] [id number] [place] [id number] Nov, [facility] [address] [id number] [place] [id number] Aug, [facility] [address] [id number] [address] [place] [id number] Aug, [facility] [address] [id number] [place] [id number] Jul, [facility] [address] [id number] [place] [id number] Jun, [facility] [address] [id number] [place] [id number] Jun, [facility] [address] [id number] [address] [place] [id number] Apr, [facility] [address] [id number] [address] [place] [id number] Feb, IMMUNIZATIONS No Known Immunizations SOCIAL HISTORY [...]
--- OUTSIDE RECORDS SUMMARY | 2020-02-11 01:31 | XMS REPORT ---
Author Author Elaine GALARZA Organization [facility] Address [address] [place] [address] Care Team Providers Care Disbursing Agent Name Role Phone MARI GALARZA Unavailable PROBLEMS Type Condition ICD9-CM Code XOU90-IC Code Onset Dates Condition S tatus SNOMED Code Problem Major depressive disorder, recurrent episode, in full remission F33.42 Active 399266629 Problem ADHD, predominantly inattentive type F90.0 Active 92760788 Problem Primary insomnia F51.01 Active 397 2004 Problem Non-seasonal allergic rhinitis due to pollen J30.1 Active 14359835 Problem Migraine without aura and without status migrain osus, not intractable G43.009 Active 040720268 Problem Essential hypertension I10 Active 54929240 Problem Seasonal allergies J30.2 Active 4 00897479 Problem Moderate episode of recurrent major depressive disorder F33.1 Active 543388037 Problem Intractable migraine without aura and with status migr ainosus G43.011 Active 530770025 ALLERGIES No Information ENCOUNTERS Encounter Location Date Diagnosis [place] [address] [place] [id number] [place] [phone] Mar, [place] [address] [place] [id number] [address] [place] [phone] Feb, [place] [address] [place] [id number] [address] [place] [phone] Jan, Major depressive disorder, r ecurrent episode, in full remission F33.42 [place] [address] [place] [id number] [address] [place] [phone] Jan, Moderate episode of recurren t major depressive disorder F33.1 ; Non-seasonal allergic rhinitis due to pollen J30.1 ; Migraine without aura and without status migrainosus, not intractable G43.009 and Sinus congestion R09.81 [facility] [address] [facility] [id number] [address] [place] [phone] Jan, [place] [address] [place] [id number] [address] [place] [phone] December, Moderate episode of recurren t major depressive disorder F33.1 [place] [address] [place] [id number] [address] [place] [phone] December, [place] [address] [place] [id number] [address] [place] [phone] December, Moderate episode of recurren t major depressive disorder F33.1 [place] [address] [place] [id number] [address] [place] [phone] Nov, Moderate episode of recurren t major depressive disorder F33.1 and Intractable migraine without aura and with status migrainosus G43.011 [place] [address] [place] [id number] [address] [place] [phone] Nov, [place] [id number] [place] [address] Oct, Major depressive disorder, r ecurrent episode, in full remission F33.42 ; Intractable migraine without aura and with status migrainosus G43.011 ; Weight gain R63.5 ; Vision changes H53.9 and Other detention (current) drug therapy Z79.899 [place] [address] [place] [phone] Oct, Encounter for pre-employment examination Z02.1 [facility] [address] [place] [phone] 15 Oct, 2018 [facility] [address] [place] [id number] [place] [phone] 20 Sep, 2018 Acute non-recurrent maxillar y sinusitis J01.00 [place] [address] [place] [id number] [place] [phone] 14 Sep, 2018 [place] [address] [id number] [address] [place] [phone] Aug, [facility] [address] [id number] [address] [place] [phone] Jul, ADHD, predominantly inattent randall type F90.0 and Primary insomnia F51.01 [facility] [address] [id number] [address] [place] [phone] Jun, ADHD, predominantly inattent randall type F90.0 [facility] [address] [id number] [address] [place] [phone] May, ADHD, predominantly inattent randall type F90.0 ; Moderate episode of recurrent major depressive disorder F33.1 and Therapeutic drug monitoring Z51.81 [facility] [address] [id number] [address] [place] [phone] May, [facility] [address] [id number] [address] [place] [phone] Apr, ADHD, predominantly inattent randall type F90.0 [facility] [address] [id number] [address] [place] [phone] 10 Apr, 2018 ADHD, predominantly inattent randall type F90.0 and Major depressive disorder, recurrent episode, in full remission F33.42 [facility] [address] [id number] [address] [place] [phone] Mar, ADHD, predominantly inattent randall type F90.0 and Primary insomnia F51.01 [facility] [address] [id number] [address] [place] [phone] Mar, [facility] [address] [id number] [address] [place] [phone] Mar, ADHD, predominantly inattent randall type F90.0 and Primary insomnia F51.01 [facility] [address] [id number] [address] [place] [phone] Feb, ADHD, predominantly inattent randall type F90.0 and Primary insomnia F51.01 [facility] [address] [facility] [id number] [address] [place] [phone] Jan, ADHD, predominantly inattent randall type F90.0 and Primary insomnia F51.01 [facility] [address] [facility] [id number] [address] [place] [phone] December, Seasonal allergies J30.2 and Post-nasal drip R09.82 [facility] [address] [id number] [address] [place] [phone] December, ADHD, predominantly inattent randall type F90.0 and Primary insomnia F51.01 [place] [address] [facility] [id number] [address] [place] [phone] Nov, ADHD, predominantly inattent randall type F90.0 [place] [address] [facility] [id number] [address] [place] [phone] Oct, ADHD, predominantly inattent randall type F90.0 [facility] [address] [facility] [id number] [address] [place] [phone] Oct, ADHD, predominantly inattent randall type F90.0 ; Primary insomnia F51.01 and Screening, lipid Z13.220 [place] [address] [place] [id number] [address] [place] [phone] Sep, ADHD, predominantly inattent randall type F90.0 [facility] [address] [facility] [id number] [address] [place] [phone] Aug, ADHD, predominantly inattent randall type F90.0 and Primary insomnia F51.01 [facility] [address] [facility] [id number] [address] [place] [phone] Jul, ADHD, predominantly inattent randall type F90.0 [place] [address] [facility] [id number] [address] [place] [phone] Jul, Primary insomnia F51.01 and ADHD, predominantly inattentive type F90.0 [place] [address] [place] [id number] [address] [place] [phone] Jun, ADHD, predominantly inattent randall type F90.0 [facility] [address] [id number] [address] [place] [phone] May, ADHD, predominantly inattent randall type F90.0 [facility] [address] [facility] [id number] [address] [place] [phone] Apr, ADHD, predominantly inattent randall type F90.0 [facility] [address] [id number] [address] [place] [phone] Mar, ADHD, predominantly inattent randall type F90.0 ; Primary insomnia F51.01 ; Major depressive disorder, recurrent episode, in full remission F33.42 and Acne comedone L70.0 [facility] [address] [facility] [id number] [address] [place] [phone] Mar, Major depressive disorder, r ecurrent episode, in full remission F33.42 and ADHD, predominantly inattentive type F90.0 [facility] [address] [facility] [id number] [address] [place] [phone] Feb, ADHD, predominantly inattent randall type F90.0 [facility] [address] [facility] [id number] [address] [place] [phone] Feb, Primary insomnia F51.01 [facility] [address] [facility] [id number] [address] [place] [phone] Jan, ADHD, predominantly inattent randall type F90.0 and Primary insomnia F51.01 [facility] [address] [facility] [id number] [address] [place] [phone] December, ADHD, predominantly inattent randall type F90.0 and Primary insomnia F51.01 [facility] [address] [facility] [id number] [address] [place] [phone] Oct, ADHD, predominantly inattent randall type F90.0 and Primary insomnia F51.01 [facility] [address] [facility] [id number] [address] [place] [phone] Sep, ADHD, predominantly inattent randall type F90.0 and Primary insomnia F51.01 [facility] [address] [facility] [id number] [address] [place] [phone] Aug, ADHD, predominantly inattent randall type F90.0 and Primary insomnia F51.01 [place] [address] [facility] [id number] [address] [place] [id number] Jul, Major depressive disorder, r ecurrent episode, in full remission F33.42 ; ADHD, predominantly inattentive type F90.0 ; Primary insomnia F51.01 ; Acute non-recurrent maxillary sinusitis J01.00 and Screening, lipid Z13.220 [facility] [address] [facility] [id number] [address] [place] [phone] Jun, Acute non-recurrent maxillar y sinusitis J01.00 [facility] [address] [facility] [id number] [address] [place] [phone] Jun, ADHD, predominantly inattent randall type F90.0 [facility] [address] [facility] [id number] [address] [place] [phone] May, [facility] [address] [facility] [id number] [address] [place] [phone] Apr, [facility] [address] [facility] [id number] [address] [place] [phone] Feb, Rash R21 and Scabies B86 [facility] [address] [facility] [id number] [address] [place] [phone] Feb, ADHD, predominantly inattent randall type F90.0 and Major depressive disorder, recurrent episode, in full remission F33.42 [facility] [address] [facility] [id number] [address] [place] [phone] Feb, [place] [address] [facility] [id number] [address] [place] [phone] Oct, [facility] [address] [id number] [address] [place] [phone] Sep, [facility] [address] [id number] [address] [place] [phone] Sep, [facility] [address] [id number] [address] [place] [phone] Aug, [facility] [address] [id number] [address] [place] [phone] Jul, [facility] [address] [id number] [address] [place] [phone] Jun, [facility] [address] [id number] [address] [place] [phone] May, [facility] [address] [facility] [id number] [address] [place] [phone] May, ADHD, predominantly inattent randall type F90.0 and Major depressive disorder, recurrent episode, in full remission F33.42 [facility] [address] [id number] [address] [place] [id number] Feb, Major depressive disorder, r ecurrent episode, moderate 296.32 [facility] [address] [id number] [address] [place] [phone] Feb, [facility] [address] [id number] [address] [place] [phone] Jan, [facility] [address] [id number] [address] [place] [phone] Jan, [facility] [address] [id number] [address] [place] [phone] December, [facility] [address] [id number] [address] [place] [phone] Nov, [facility] [address] [id number] [address] [place] [phone] Nov, [facility] [address] [id number] [address] [place] [address], [place] [address] Oct, [facility] [address] [id number] [address] [place] [address], [place] [address] Oct, [facility] [address] [id number] [address] [place] [address], [place] [address] Sep, [facility] [address] [id number] [address] [place] [address], [place] [address] Sep, [facility] [address] [id number] [address] [place] [address], [place] [address] Sep, [facility] [address] [id number] [address] [place] [address], [place] [address] Sep, [facility] [address] [id number] [address] [place] [address], [place] [address] Aug, [facility] [address] [id number] [address] [place] [address], [place] [address] Aug, [facility] [address] [id number] [address] [place] [address], [place] [address] Aug, [facility] [address] [id number] [address] [place] [address], [place] [address] Aug, [facility] [address] [id number] [address] [place] [address], [place] [address] Aug, [facility] [address] [id number] [address] [place] [address], [place] [address] Aug, [facility] [address] [id number] [address] [place] [address], [place] [address] Jul, [facility] [address] [id number] [address] [place] [address], [place] [address] Jul, [facility] [address] [id number] [address] [place] [address], [place] [address] Jun, [facility] [address] [id number] [address] [place] [address], [place] [address] Jun, [facility] [address] [id number] [address] [place] [address], [place] [address] May, [facility] [address] [id number] [address] [place] [address], [place] [address] May, [facility] [address] [id number] [address] [place] [address], [place] [address] Apr, [facility] [address] [id number] [address] [place] [address], [place] [address] Apr, [facility] [address] [id number] [address] [place] [address], [place] [address] Apr, [facility] [address] [id number] [address] [place] [address], [place] [address] Mar, [facility] [address] [id number] [address] [place] [address], [place] [address] Mar, [facility] [address] [id number] [address] [place] [address], [place] [address] Mar, [facility] [address] [id number] [address] [place] [address], [place] [address] Mar, [facility] [address] [id number] [address] [place] [address], [place] [address] Feb, [facility] [address] [id number] [address] [place] [address], [place] [address] Feb, [facility] [address] [id number] [address] [place] [address], [place] [address] Feb, [facility] [address] [id number] [address] [place] [address], [place] [address] Feb, [facility] [address] [id number] [address] [place] [address], [place] [address] Feb, [facility] [address] [id number] [address] [place] [address], [place] [address] Feb, [facility] [address] [id number] [facility] [place] [address] Jan, [facility] [address] [id number] [address] [place] [address], [place] [address] Jan, [facility] [address] [id number] [address] [place] [address], [place] [address] Jan, [facility] [address] [id number] [address] [place] [address], [place] [address] Jan, [facility] [address] [id number] [address] [place] [address], [place] [address] December, [facility] [address] [id number] [address] [place] [address], [place] [address] December, [facility] [address] [id number] [address] [place] [address], [place] [address] December, [facility] [address] [id number] [address] [place] [address], [place] [address] December, [facility] [address] [id number] [address] [place] [address], [place] [address] December, [facility] [address] [id number] [address] [place] [address], [place] [address] December, [facility] [address] [id number] [address] [place] [address], [place] [address] December, [facility] [address] [id number] [address] [place] [address], [place] [address] December, [facility] [address] [id number] [address] [place] [address], [place] [address] December, [facility] [address] [id number] [address] [place] [address], [place] [address] December, [facility] [address] [id number] [address] [place] [address], [place] [address] Nov, [facility] [address] [id number] [address] [place] [address], [place] [address] Nov, [facility] [address] [id number] [address] [place] [address], [place] [address] Oct, [facility] [address] [id number] [address] [place] [address], [place] [address] Oct, [facility] [address] [id number] [address] [place] [address], [place] [address] Oct, [facility] [address] [id number] [address] [place] [address], [place] [address] Oct, [facility] [address] [id number] [address] [place] [address], [place] [address] Oct, [facility] [address] [id number] [address] [place] [address], [place] [address] Oct, [facility] [address] [id number] [address] [place] [address], [place] [address] Aug, [facility] [address] [id number] [address] [place] [address], [place] [address] Aug, [facility] [address] [id number] [address] [place] [address], [place] [address] Aug, [facility] [address] [id number] [address] [place] [address], [place] [address] Aug, [facility] [address] [id number] [address] [place] [address], [place] [address] Aug, [facility] [address] [id number] [address] [place] [address], [place] [address] Aug, [facility] [address] [id number] [address] [place] [address], [place] [address] Aug, [facility] [address] [id number] [address] [place] [address], [place] [address] Aug, [facility] [address] [id number] [address] [place] [address], [place] [address] Jul, [facility] [address] [id number] [address] [place] [address], [place] [address] Jul, [facility] [address] [id number] [address] [place] [address], [place] [id number] Jun, [facility] [address] [id number] [address] [place] [address], [place] [address] Jun, [facility] [address] [id number] [address] [place] [address], [place] [address] Jun, [facility] [address] [id number] [address] [place] [address], [place] [address] Jun, [facility] [address] [id number] [address] [place] [address], [place] [address] Jun, [facility] [address] [id number] [address] [place] [address], [place] [address] Jun, [facility] [address] [id number] [address] [place] [address], [place] [address] May, [facility] [address] [id number] [address] [place] [address], [place] [address] May, [facility] [address] [id number] [address] [place] [address], [place] [address] Apr, [facility] [address] [id number] [address] [place] [address], [place] [address] Apr, [facility] [address] [id number] [address] [place] [address], [place] [id number] Mar, [facility] [address] [id number] [address] [place] [address], [place] [address] Mar, [facility] [address] [id number] [address] [place] [address], [place] [address] Mar, [facility] [address] [id number] [address] [place] [address], [place] [address] Feb, [facility] [address] [id number] [address] [place] [address], [place] [address] Jan, [facility] [address] [id number] [address] [place] [address], [place] [address] December, [facility] [address] [id number] [address] [place] [address], [place] [address] December, [facility] [address] [id number] [address] [place] [address], [place] [id number] December, [facility] [address] [id number] [address] [place] [address], [place] [address] December, [facility] [address] [id number] [address] [place] [place] [address], [place] [id number] December, [facility] [address] [id number] [address] [place] [address], [place] [phone] December, [facility] [address] [id number] [address] [place] [address], [place] [id number] Nov, [facility] [address] [id number] [address] [place] [address], [place] [id number] Nov, [facility] [address] [id number] [address] [place] [address], [place] [id number] 08 Nov, 2012 [facility] [address] [id number] [address] [place] [address], [place] [id number] 05 Oct, 2012 [facility] [address] [id number] [address] [place] [address], [place] [id number] 14 Jun, 2012 [facility] [address] [id number] [address] [place] [address], [place] [id number] 14 Jun, 2012 [facility] [address] [id number] [address] [place] [address], [place] [address] Jun, [facility] [address] [id number] [address] [place] [address], [place] [address] Jun, [facility] [address] [id number] [address] [place] [address], [place] [phone] 18 Apr, 2012 [facility] [address] [id number] [address] [place] [address], [place] [address] Mar, [facility] [address] [id number] [address] [place] [phone] Mar, [facility] [address] [id number] [address] [place] [id number] Jan, [facility] [address] [id number] [address] [place] [phone] December, [facility] [address] [id number] [address] [place] [phone] Nov, [facility] [address] [id number] [address] [place] [phone] Nov, [facility] [address] [id number] [address] [place] [phone] Nov, [facility] [address] [id number] [address] [place] [phone] Nov, [facility] [address] [id number] [address] [place] [phone] Aug, [facility] [address] [id number] [address] [place] [phone] Aug, [facility] [address] [id number] [address] [place] [id number] Jul, [facility] [address] [id number] [address] [place] [phone] Jun, [facility] [address] [id number] [address] [place] [phone] Jun, [facility] [address] [id number] [address] [place] [phone] Apr, [facility] [address] [id number] [address] [place] [id number] Feb, IMMUNIZATIONS No Known Immunizations SOCIAL HISTORY [...]
--- OUTSIDE RECORDS SUMMARY | 2020-02-11 01:31 | XMS REPORT ---
Author Author Elaine GALARZA Organization [facility] Address [address] [place] [address] Care Team Providers Care Licensed Pharmacist Name Role Phone MARI GALARZA Unavailable PROBLEMS Type Condition ICD9-CM Code [id number] Code Onset Dates Condition S tatus SNOMED Code Problem Major depressive disorder, recurrent episode, in full remission F33.42 Active 868920318 Problem ADHD, predominantly inattentive type F90.0 Active 25736002 Problem Primary insomnia F51.01 Active 397 2004 Problem Non-seasonal allergic rhinitis due to pollen J30.1 Active 26992142 Problem Migraine without aura and without status migrain osus, not intractable G43.009 Active 928957690 Problem Essential hypertension I10 Active 38779610 Problem Seasonal allergies J30.2 Active 4 78235059 Problem Moderate episode of recurrent major depressive disorder F33.1 Active 099210324 Problem Intractable migraine without aura and with status migr ainosus G43.011 Active 596705156 ALLERGIES No Information ENCOUNTERS Encounter Location Date Diagnosis [place] [address] [place] [id number] [address] [place] [id number] Mar, [place] [address] [place] [id number] [address] [place] [address] Feb, [place] [address] [place] [id number] [address] [place] [id number] Jan, Major depressive disorder, r ecurrent episode, in full remission F33.42 [place] [address] [place] [id number] [place] [address] Jan, Moderate episode of recurren t major depressive disorder F33.1 ; Non-seasonal allergic rhinitis due to pollen J30.1 ; Migraine without aura and without status migrainosus, not intractable G43.009 and Sinus congestion R09.81 [facility] [address] [facility] [id number] [address] [place] [address] Jan, [place] [address] [place] [id number] [place] [address] December, Moderate episode of recurren t major depressive disorder F33.1 [place] [address] [place] [id number] [place] [id number] December, [place] [address] [place] [id number] [address] [place] [address] December, Moderate episode of recurren t major depressive disorder F33.1 [place] [address] [place] [id number] [place] [phone] Nov, Moderate episode of recurren t major depressive disorder F33.1 and Intractable migraine without aura and with status migrainosus G43.011 [place] [address] [place] [id number] [place] [id number] Nov, [place] [address] [place] [address] Oct, Major depressive disorder, r ecurrent episode, in full remission F33.42 ; Intractable migraine without aura and with status migrainosus G43.011 ; Weight gain R63.5 ; Vision changes H53.9 and Other longterm (current) drug therapy Z79.899 [place] [address] [place] [address] Oct, Encounter for pre-employment examination Z02.1 [facility] [address] [place] [id number] 15 Oct, 2018 [facility] [address] [place] [id number] [place] [address] 20 Sep, 2018 Acute non-recurrent maxillar y sinusitis J01.00 [place] [address] [place] [id number] [place] [id number] 14 Sep, 2018 [place] [address] [id number] [address] [place] [phone] Aug, [facility] [address] [id number] [address] [place] [id number] Jul, ADHD, predominantly inattent randall type F90.0 and Primary insomnia F51.01 [facility] [address] [id number] [address] [place] [id number] Jun, ADHD, predominantly inattent randall type F90.0 [facility] [address] [id number] [address] [place] [phone] May, ADHD, predominantly inattent randall type F90.0 ; Moderate episode of recurrent major depressive disorder F33.1 and Therapeutic drug monitoring Z51.81 [facility] [address] [id number] [address] [place] [id number] May, [facility] [address] [id number] [address] [place] [id number] Apr, ADHD, predominantly inattent randall type F90.0 [facility] [address] [id number] [address] [place] [id number] 10 Apr, 2018 ADHD, predominantly inattent randall type F90.0 and Major depressive disorder, recurrent episode, in full remission F33.42 [facility] [address] [id number] [address] [place] [id number] Mar, ADHD, predominantly inattent randall type F90.0 and Primary insomnia F51.01 [facility] [address] [id number] [address] [place] [id number] Mar, [facility] [address] [id number] [address] [place] [id number] Mar, ADHD, predominantly inattent randall type F90.0 and Primary insomnia F51.01 [facility] [address] [id number] [address] [place] [phone] Feb, ADHD, predominantly inattent randall type F90.0 and Primary insomnia F51.01 [facility] [address] [facility] [id number] [address] [place] [phone] Jan, ADHD, predominantly inattent randall type F90.0 and Primary insomnia F51.01 [facility] [address] [facility] [id number] [address] [place] [id number] December, Seasonal allergies J30.2 and Post-nasal drip R09.82 [facility] [address] [facility] [id number] [address] [place] [id number] December, ADHD, predominantly inattent randall type F90.0 and Primary insomnia F51.01 [place] [address] [facility] [id number] [address] [place] [address] Nov, ADHD, predominantly inattent randall type F90.0 [place] [address] [facility] [id number] [address] [place] [phone] Oct, ADHD, predominantly inattent randall type F90.0 [facility] [address] [facility] [id number] [address] [place] [id number] Oct, ADHD, predominantly inattent randall type F90.0 ; Primary insomnia F51.01 and Screening, lipid Z13.220 [place] [address] [place] [id number] [place] [id number] Sep, ADHD, predominantly inattent randall type F90.0 [facility] [address] [facility] [id number] [address] [place] [id number] Aug, ADHD, predominantly inattent randall type F90.0 and Primary insomnia F51.01 [facility] [address] [facility] [id number] [address] [place] [phone] Jul, ADHD, predominantly inattent randall type F90.0 [place] [address] [facility] [id number] [address] [place] [phone] Jul, Primary insomnia F51.01 and ADHD, predominantly inattentive type F90.0 [place] [address] [place] [id number] [address] [place] [phone] Jun, ADHD, predominantly inattent randall type F90.0 [facility] [address] [id number] [address] [place] [id number] May, ADHD, predominantly inattent randall type F90.0 [facility] [address] [facility] [id number] [address] [place] [id number] Apr, ADHD, predominantly inattent randall type F90.0 [facility] [address] [id number] [address] [place] [id number] Mar, ADHD, predominantly inattent randall type F90.0 ; Primary insomnia F51.01 ; Major depressive disorder, recurrent episode, in full remission F33.42 and Acne comedone L70.0 [facility] [address] [facility] [id number] [address] [place] [id number] Mar, Major depressive disorder, r ecurrent episode, in full remission F33.42 and ADHD, predominantly inattentive type F90.0 [facility] [address] [facility] [id number] [address] [place] [id number] Feb, ADHD, predominantly inattent randall type F90.0 [facility] [address] [facility] [id number] [address] [place] [phone] Feb, Primary insomnia F51.01 [facility] [address] [facility] [id number] [address] [place] [id number] Jan, ADHD, predominantly inattent randall type F90.0 and Primary insomnia F51.01 [facility] [address] [facility] [id number] [address] [place] [id number] December, ADHD, predominantly inattent randall type F90.0 and Primary insomnia F51.01 [facility] [address] [facility] [id number] [address] [place] [id number] Oct, ADHD, predominantly inattent randall type F90.0 and Primary insomnia F51.01 [facility] [address] [facility] [id number] [address] [place] [id number] Sep, ADHD, predominantly inattent randall type F90.0 and Primary insomnia F51.01 [facility] [address] [facility] [id number] [address] [place] [id number] Aug, ADHD, predominantly inattent randall type F90.0 and Primary insomnia F51.01 [place] [address] [facility] [id number] [address] [place] [address] Jul, Major depressive disorder, r ecurrent episode, in full remission F33.42 ; ADHD, predominantly inattentive type F90.0 ; Primary insomnia F51.01 ; Acute non-recurrent maxillary sinusitis J01.00 and Screening, lipid Z13.220 [facility] [address] [facility] [id number] [address] [place] [id number] Jun, Acute non-recurrent maxillar y sinusitis J01.00 [facility] [address] [facility] [id number] [address] [place] [id number] Jun, ADHD, predominantly inattent randall type F90.0 [facility] [address] [facility] [id number] [address] [place] [id number] May, [facility] [address] [facility] [id number] [address] [place] [id number] Apr, [facility] [address] [facility] [id number] [address] [place] [phone] Feb, Rash R21 and Scabies B86 [facility] [address] [facility] [id number] [address] [place] [id number] Feb, ADHD, predominantly inattent randall type F90.0 and Major depressive disorder, recurrent episode, in full remission F33.42 [facility] [address] [facility] [id number] [address] [place] [id number] Feb, [place] [address] [facility] [id number] [address] [place] [id number] Oct, [facility] [address] [id number] [address] [place] [phone] Sep, [facility] [address] [id number] [address] [place] [phone] Sep, [facility] [address] [id number] [address] [place] [id number] Aug, [facility] [address] [id number] [address] [place] [id number] Jul, [facility] [address] [id number] [address] [place] [id number] Jun, [facility] [address] [id number] [address] [place] [id number] May, [facility] [address] [facility] [id number] [address] [place] [id number] May, ADHD, predominantly inattent randall type F90.0 and Major depressive disorder, recurrent episode, in full remission F33.42 [facility] [address] [id number] [address] [place] [id number] Feb, Major depressive disorder, r ecurrent episode, moderate 296.32 [facility] [address] [id number] [address] [place] [id number] Feb, [facility] [address] [id number] [address] [place] [id number] Jan, [facility] [address] [id number] [address] [place] [phone] Jan, [facility] [address] [id number] [address] [place] [id number] December, [facility] [address] [id number] [address] [place] [phone] Nov, [facility] [address] [id number] [address] [place] [phone] Nov, [facility] [address] [id number] [address] [place] [address], [place] [address] Oct, [facility] [address] [id number] [address] [place] [address], [place] [address] Oct, [facility] [address] [id number] [address] [place] [address], [place] [address] Sep, [facility] [address] [id number] [address] [place] [address], [place] [address] Sep, [facility] [address] [id number] [address] [place] [address], [place] [address] Sep, [facility] [address] [id number] [address] [place] [address], [place] [address] Sep, [facility] [address] [id number] [address] [place] [address], [place] [address] Aug, [facility] [address] [id number] [address] [place] [address], [place] [address] Aug, [facility] [address] [id number] [address] [place] [address], [place] [address] Aug, [facility] [address] [id number] [address] [place] [address], [place] [address] Aug, [facility] [address] [id number] [address] [place] [address], [place] [address] Aug, [facility] [address] [id number] [address] [place] [address], [place] [address] Aug, [facility] [address] [id number] [address] [place] [address], [place] [address] Jul, [facility] [address] [id number] [address] [place] [address], [place] [address] Jul, [facility] [address] [id number] [address] [place] [address], [place] [address] Jun, [facility] [address] [id number] [address] [place] [address], [place] [address] Jun, [facility] [address] [id number] [address] [place] [address], [place] [address] May, [facility] [address] [id number] [address] [place] [address], [place] [address] May, [facility] [address] [id number] [address] [place] [address], [place] [address] Apr, [facility] [address] [id number] [address] [place] [address], [place] [address] Apr, [facility] [address] [id number] [address] [place] [address], [place] [address] Apr, [facility] [address] [id number] [address] [place] [address], [place] [address] Mar, [facility] [address] [id number] [address] [place] [address], [place] [address] Mar, [facility] [address] [id number] [address] [place] [address], [place] [address] Mar, [facility] [address] [id number] [address] [place] [address], [place] [address] Mar, [facility] [address] [id number] [address] [place] [address], [place] [address] Feb, [facility] [address] [id number] [address] [place] [address], [place] [address] Feb, [facility] [address] [id number] [address] [place] [address], [place] [address] Feb, [facility] [address] [id number] [address] [place] [address], [place] [address] Feb, [facility] [address] [id number] [address] [place] [address], [place] [address] Feb, [facility] [address] [id number] [address] [place] [address], [place] [address] Feb, [facility] [address] [id number] [facility] [address] Jan, [facility] [address] [id number] [address] [place] [address], [place] [address] Jan, [facility] [address] [id number] [address] [place] [address], [place] [address] Jan, [facility] [address] [id number] [address] [place] [address], [place] [address] Jan, [facility] [address] [id number] [address] [place] [address], [place] [address] December, [facility] [address] [id number] [address] [place] [address], [place] [address] December, [facility] [address] [id number] [address] [place] [address], [place] [address] December, [facility] [address] [id number] [address] [place] [address], [place] [address] December, [facility] [address] [id number] [address] [place] [address], [place] [address] December, [facility] [address] [id number] [address] [place] [address], [place] [address] December, [facility] [address] [id number] [address] [place] [address], [place] [address] December, [facility] [address] [id number] [address] [place] [address], [place] [address] December, [facility] [address] [id number] [address] [place] [address], [place] [address] December, [facility] [address] [id number] [address] [place] [address], [place] [address] December, [facility] [address] [id number] [address] [place] [address], [place] [address] Nov, [facility] [address] [id number] [address] [place] [address], [place] [address] Nov, [facility] [address] [id number] [address] [place] [address], [place] [address] Oct, [facility] [address] [id number] [address] [place] [address], [place] [address] Oct, [facility] [address] [id number] [address] [place] [address], [place] [address] Oct, [facility] [address] [id number] [address] [place] [address], [place] [address] Oct, [facility] [address] [id number] [address] [place] [address], [place] [address] Oct, [facility] [address] [id number] [address] [place] [address], [place] [address] Oct, [facility] [address] [id number] [address] [place] [address], [place] [address] Aug, [facility] [address] [id number] [address] [place] [address], [place] [address] Aug, [facility] [address] [id number] [address] [place] [address], [place] [address] Aug, [facility] [address] [id number] [address] [place] [address], [place] [address] Aug, [facility] [address] [id number] [address] [place] [address], [place] [address] Aug, [facility] [address] [id number] [address] [place] [address], [place] [address] Aug, [facility] [address] [id number] [address] [place] [address], [place] [address] Aug, [facility] [address] [id number] [address] [place] [address], [place] [address] Aug, [facility] [address] [id number] [address] [place] [address], [place] [address] Jul, [facility] [address] [id number] [address] [place] [address], [place] [address] Jul, [facility] [address] [id number] [address] [place] [address], [place] [address] Jun, [facility] [address] [id number] [address] [place] [address], [place] [address] Jun, [facility] [address] [id number] [address] [place] [address], [place] [address] Jun, [facility] [address] [id number] [address] [place] [address], [place] [address] Jun, [facility] [address] [id number] [address] [place] [address], [place] [address] Jun, [facility] [address] [id number] [address] [place] [address], [place] [address] Jun, [facility] [address] [id number] [address] [place] [address], [place] [address] May, [facility] [address] [id number] [address] [place] [address], [place] [address] May, [facility] [address] [id number] [address] [place] [address], [place] [address] Apr, [facility] [address] [id number] [address] [place] [address], [place] [address] Apr, [facility] [address] [id number] [address] [place] [address], [place] [address] Mar, [facility] [address] [id number] [address] [place] [address], [place] [address] Mar, [facility] [address] [id number] [address] [place] [address], [place] [address] Mar, [facility] [address] [id number] [address] [place] [address], [place] [address] Feb, [facility] [address] [id number] [address] [place] [address], [place] [address] Jan, [facility] [address] [id number] [address] [place] [address], [place] [address] December, [facility] [address] [id number] [address] [place] [address], [place] [address] December, [facility] [address] [id number] [address] [place] [address], [place] [address] December, [facility] [address] [id number] [address] [place] [address], [place] [address] December, [facility] [address] [id number] [address] [place] [address], [place] [address] December, [facility] [address] [id number] [address] [place] [address], [place] [address] December, [facility] [address] [id number] [address] [place] [address], [place] [address] Nov, [facility] [address] [id number] [address] [place] [address], [place] [address] Nov, [facility] [address] [id number] [address] [place] [address], [place] [address] 08 Nov, 2012 [facility] [address] [id number] [address] [place] [address], [place] [address] 05 Oct, 2012 [facility] [address] [id number] [address] [place] [address], [place] [address] 14 Jun, 2012 [facility] [address] [id number] [address] [place] [address], [place] [address] 14 Jun, 2012 [facility] [address] [id number] [address] [place] [address], [place] [address] Jun, [facility] [address] [id number] [address] [place] [address], [place] [address] Jun, [facility] [address] [id number] [address] [place] [address], [place] [address] 18 Apr, 2012 [facility] [address] [id number] [address] [place] [address], [place] [address] Mar, [facility] [address] [id number] [address] [place] [address] Mar, [facility] [address] [id number] [address] [place] [address] Jan, [facility] [address] [id number] [address] [place] [address] December, [facility] [address] [id number] [address] [place] [id number] Nov, [facility] [address] [id number] [place] [phone] Nov, [facility] [address] [id number] [address] [place] [id number] Nov, [facility] [address] [id number] [address] [place] [id number] Nov, [facility] [address] [id number] [address] [place] [id number] Aug, [facility] [address] [id number] [address] [place] [id number] Aug, [facility] [address] [id number] [address] [place] [id number] Jul, [facility] [address] [id number] [address] [place] [id number] Jun, [facility] [address] [id number] [address] [place] [phone] Jun, [facility] [address] [id number] [address] [place] [phone] Apr, [facility] [address] [id number] [address] [place] [id number] Feb, IMMUNIZATIONS No Known Immunizations SOCIAL HISTORY [...]
--- OUTSIDE RECORDS SUMMARY | 2020-02-11 01:31 | XMS REPORT ---
Author Author Elaine DEUTSCH Organization [facility] Address [address] [place] [address] Care Team Providers Care Vp Product Management Name Role Phone ANA DEUTSCH Unavailable PROBLEMS Type Condition ICD9-CM Code YEN60-DL Code Onset Dates Condition S tatus SNOMED Code Problem Major depressive disorder, recurrent episode, in full remission F33.42 Active 064396680 Problem ADHD, predominantly inattentive type F90.0 Active 04219916 Problem Primary insomnia F51.01 Active 397 2004 Problem Non-seasonal allergic rhinitis due to pollen J30.1 Active 00336029 Problem Migraine without aura and without status migrain osus, not intractable G43.009 Active 942908972 Problem Essential hypertension I10 Active 44954582 Problem Seasonal allergies J30.2 Active 4 13104071 Problem Moderate episode of recurrent major depressive disorder F33.1 Active 128665059 Problem Intractable migraine without aura and with status migr ainosus G43.011 Active 682681635 ALLERGIES No Information ENCOUNTERS Encounter Location Date Diagnosis [place] [address] [place] [id number] [place] [address] Mar, [place] [address] [address] Feb, [place] [address] [place] [id number] [address] [place] [address] Jan, Major depressive disorder, r ecurrent episode, in full remission F33.42 [place] [address] [place] [id number] [address] [place] [address] Jan, Moderate episode of recurren t major depressive disorder F33.1 ; Non-seasonal allergic rhinitis due to pollen J30.1 ; Migraine without aura and without status migrainosus, not intractable G43.009 and Sinus congestion R09.81 [place] [address] [facility] [id number] [address] [place] [address] Jan, [facility] [address] [facility] [id number] [address] [place] [address] December, Moderate episode of recurren t major depressive disorder F33.1 [facility] [address] [facility] [id number] [address] [place] [address] December, [place] [address] [facility] [id number] [address] [place] [address] December, Moderate episode of recurren t major depressive disorder F33.1 [place] [address] [facility] [id number] [address] [place] [address] Nov, Moderate episode of recurren t major depressive disorder F33.1 and Intractable migraine without aura and with status migrainosus G43.011 [place] [address] [place] [id number] [address] [place] [address] Nov, [facility] [address] [place] [id number] [address] [place] [address] Oct, Major depressive disorder, r ecurrent episode, in full remission F33.42 ; Intractable migraine without aura and with status migrainosus G43.011 ; Weight gain R63.5 ; Vision changes H53.9 and 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 [place] [id number] [place] [address] Oct, Encounter for pre-employment examination Z02.1 [facility] [address] [place] [id number] [address] [place] [address] Oct, [facility] [address] [place] [id number] [place] [address] 20 Sep, 2018 Acute non-recurrent maxillar y sinusitis J01.00 [facility] [address] [place] [id number] [address] [place] [address] 14 Sep, 2018 [place] [address] [place] [address] Aug, [facility] [address] [id number] [address] [place] [address] Jul, ADHD, predominantly inattent randall type F90.0 and Primary insomnia F51.01 [facility] [address] [id number] [address] [place] [address] Jun, ADHD, predominantly inattent randall type F90.0 [facility] [address] [id number] [address] [place] [address] May, ADHD, predominantly inattent randall type F90.0 ; Moderate episode of recurrent major depressive disorder F33.1 and Therapeutic drug monitoring Z51.81 [facility] [address] [id number] [address] [place] [address] 04 May, 2018 [facility] [address] [id number] [address] [place] [address] 28 Apr, 2018 ADHD, predominantly inattent randall type F90.0 [facility] [address] [id number] [address] [place] [address] 10 Apr, 2018 ADHD, predominantly inattent randall type F90.0 and Major depressive disorder, recurrent episode, in full remission F33.42 [facility] [address] [id number] [address] [place] [address] Mar, ADHD, predominantly inattent randall type F90.0 and Primary insomnia F51.01 [facility] [address] [id number] [address] [place] [address] Mar, [facility] [address] [id number] [address] [place] [address] Mar, ADHD, predominantly inattent randall type F90.0 and Primary insomnia F51.01 [facility] [address] [id number] [address] [place] [address] Feb, ADHD, predominantly inattent randall type F90.0 and Primary insomnia F51.01 [place] [id number] [facility] [id number] [address] [place] [address] Jan, ADHD, predominantly inattent randall type F90.0 and Primary insomnia F51.01 [facility] [address] [facility] [id number] [address] [place] [address] December, Seasonal allergies J30.2 and Post-nasal drip R09.82 [facility] [address] [facility] [id number] [address] [place] [address] December, ADHD, predominantly inattent randall type F90.0 and Primary insomnia F51.01 [place] [address] [place] [id number] [address] [place] [address] Nov, ADHD, predominantly inattent randall type F90.0 [place] [address] [place] [id number] [address] [place] [address] Oct, ADHD, predominantly inattent randall type F90.0 [facility] [address] [place] [id number] [address] [place] [address] Oct, ADHD, predominantly inattent randall type F90.0 ; Primary insomnia F51.01 and Screening, lipid Z13.220 [place] [address] [place] [id number] [address] [place] [address] Sep, ADHD, predominantly inattent randall type F90.0 [facility] [address] [place] [id number] [address] [place] [address] Aug, ADHD, predominantly inattent randall type F90.0 and Primary insomnia F51.01 [facility] [address] [place] [id number] [address] [place] [address] Jul, ADHD, predominantly inattent randall type F90.0 [facility] [address] [place] [id number] [address] [place] [address] Jul, Primary insomnia F51.01 and ADHD, predominantly inattentive type F90.0 [place] [address] [place] [id number] [address] [place] [address] Jun, ADHD, predominantly inattent randall type F90.0 [facility] [address] [id number] [address] [place] [address] May, ADHD, predominantly inattent randall type F90.0 [facility] [address] [id number] [address] [place] [address] Apr, ADHD, predominantly inattent randall type F90.0 [facility] [address] [id number] [address] [place] [address] Mar, ADHD, predominantly inattent randall type F90.0 ; Primary insomnia F51.01 ; Major depressive disorder, recurrent episode, in full remission F33.42 and Acne comedone L70.0 [facility] [address] [id number] [address] [place] [address] Mar, Major depressive disorder, r ecurrent episode, in full remission F33.42 and ADHD, predominantly inattentive type F90.0 [facility] [address] [id number] [address] [place] [address] Feb, ADHD, predominantly inattent randall type F90.0 [facility] [address] [facility] [id number] [address] [place] [address] Feb, Primary insomnia F51.01 [facility] [address] [id number] [address] [place] [address] Jan, ADHD, predominantly inattent randall type F90.0 and Primary insomnia F51.01 [facility] [address] [id number] [address] [place] [address] December, ADHD, predominantly inattent randall type F90.0 and Primary insomnia F51.01 [facility] [address] [id number] [address] [place] [address] Oct, ADHD, predominantly inattent randall type F90.0 and Primary insomnia F51.01 [facility] [address] [facility] [id number] [address] [place] [address] Sep, ADHD, predominantly inattent randall type F90.0 and Primary insomnia F51.01 [facility] [address] [facility] [id number] [address] [place] [address] Aug, ADHD, predominantly inattent randall type F90.0 and Primary insomnia F51.01 [place] [address] [place] [id number] [address] [place] [address] Jul, Major depressive disorder, r ecurrent episode, in full remission F33.42 ; ADHD, predominantly inattentive type F90.0 ; Primary insomnia F51.01 ; Acute non-recurrent maxillary sinusitis J01.00 and Screening, lipid Z13.220 [facility] [address] [place] [id number] [place] [address] Jun, Acute non-recurrent maxillar y sinusitis J01.00 [place] [address] [place] [id number] [place] [address] Jun, ADHD, predominantly inattent randall type F90.0 [place] [address] [place] [id number] [address] [place] [address] May, [place] [address] [place] [id number] [place] [address] Apr, [facility] [address] [place] [id number] [address] [place] [address] Feb, Rash R21 and Scabies B86 [place] [address] [place] [id number] [address] [place] [address] Feb, ADHD, predominantly inattent randall type F90.0 and Major depressive disorder, recurrent episode, in full remission F33.42 [facility] [address] [place] [id number] [address] [place] [address] Feb, [place] [address] [place] [id number] [address] [place] [address] Oct, [place] [address] [id number] [address] [place] [address] Sep, [facility] [address] [id number] [address] [place] [address] Sep, [facility] [address] [id number] [address] [place] [address] Aug, [facility] [address] [id number] [address] [place] [address] Jul, [facility] [address] [id number] [address] [place] [address] Jun, [facility] [address] [id number] [address] [place] [address] May, [facility] [address] [facility] [id number] [address] [place] [address] May, ADHD, predominantly inattent randall type F90.0 and Major depressive disorder, recurrent episode, in full remission F33.42 [facility] [address] [id number] [address] [place] [address] Feb, Major depressive disorder, r ecurrent episode, moderate 296.32 [facility] [address] [id number] [address] [place] [address] Feb, [facility] [address] [id number] [address] [place] [address] Jan, [facility] [address] [id number] [address] [place] [address] Jan, [facility] [address] [id number] [address] [place] [address] December, [facility] [address] [id number] [address] [place] [address] Nov, [facility] [address] [facility] [id number] [address] [place] [address] Nov, [facility] [address] [id number] [address] [place] [address] Oct, [facility] [address] [id number] [address] [place] [address], [place] [address] Oct, [facility] [address] [id number] [address] [place] [address], [place] [address] Sep, [facility] [address] [id number] [address] [place] [address], [place] [address] Sep, [facility] [address] [id number] [address] [place] [address], [place] [address] Sep, [facility] [address] [id number] [address] [place] [address], [place] [address] Sep, [facility] [address] [id number] [address] [place] [address], [place] [address] Aug, [facility] [address] [id number] [address] [place] [address], [place] [address] Aug, [facility] [address] [id number] [address] [place] [address], [place] [address] Aug, [facility] [address] [id number] [address] [place] [address], [place] [address] Aug, [facility] [address] [id number] [address] [place] [address], [place] [address] Aug, [facility] [address] [id number] [address] [place] [address], [place] [address] Aug, [facility] [address] [id number] [address] [place] [address], [place] [address] Jul, [facility] [address] [id number] [address] [place] [address], [place] [address] Jul, [facility] [address] [id number] [address] [place] [address], [place] [address] Jun, [facility] [address] [id number] [address] [place] [address], [place] [address] Jun, [facility] [address] [id number] [address] [place] [address], [place] [address] May, [facility] [address] [id number] [address] [place] [address], [place] [address] May, [facility] [address] [id number] [address] [place] [address], [place] [address] Apr, [facility] [address] [id number] [address] [place] [address], [place] [address] Apr, [facility] [address] [id number] [address] [place] [address], [place] [address] Apr, [facility] [address] [id number] [address] [place] [address], [place] [address] Mar, [facility] [address] [id number] [address] [place] [address], [place] [address] Mar, [facility] [address] [id number] [address] [place] [address], [place] [address] Mar, [facility] [address] [id number] [address] [place] [address], [place] [address] Mar, [facility] [address] [id number] [address] [place] [address], [place] [address] Feb, [facility] [address] [id number] [address] [place] [address], [place] [address] Feb, [facility] [address] [id number] [address] [place] [address], [place] [address] Feb, [facility] [address] [id number] [address] [place] [address], [place] [address] Feb, [facility] [address] [id number] [address] [place] [address], [place] [address] Feb, [facility] [address] [id number] [address] [place] [address], [place] [address] Feb, [facility] [address] [id number] [address] [place] [address], [place] [address] Jan, [facility] [address] [id number] [facility] [place] [address] Jan, [facility] [address] [id number] [address] [place] [address], [place] [address] Jan, [facility] [address] [id number] [address] [place] [address], [place] [address] Jan, [facility] [address] [id number] [address] [place] [address], [place] [address] December, [facility] [address] [id number] [address] [place] [address], [place] [address] December, [facility] [address] [id number] [address] [place] [address], [place] [address] December, [facility] [address] [id number] [address] [place] [address], [place] [address] December, [facility] [address] [id number] [address] [place] [address], [place] [address] December, [facility] [address] [id number] [address] [place] [address], [place] [address] December, [facility] [address] [id number] [address] [place] [address], [place] [address] December, [facility] [address] [id number] [address] [place] [address], [place] [address] December, [facility] [address] [id number] [address] [place] [address], [place] [address] December, [facility] [address] [id number] [address] [place] [address], [place] [address] December, [facility] [address] [id number] [address] [place] [address], [place] [address] Nov, [facility] [address] [id number] [address] [place] [address], [place] [address] Nov, [facility] [address] [id number] [facility] [place] [address] 10 Oct, 2013 [facility] [address] [id number] [address] [place] [address], [place] [address] Oct, [facility] [address] [id number] [address] [place] [address], [place] [address] 10 Oct, 2013 [facility] [address] [id number] [address] [place] [address], [place] [address] Oct, [facility] [address] [id number] [address] [place] [address], [place] [address] Oct, [facility] [address] [id number] [address] [place] [address], [place] [address] Oct, [facility] [address] [id number] [address] [place] [address], [place] [address] Aug, [facility] [address] [id number] [address] [place] [address], [place] [address] Aug, [facility] [address] [id number] [address] [place] [address], [place] [address] Aug, [facility] [address] [id number] [address] [place] [address], [place] [address] Aug, [facility] [address] [id number] [address] [place] [address], [place] [address] Aug, [facility] [address] [id number] [address] [place] [address], [place] [address] Aug, [facility] [address] [id number] [address] [place] [address], [place] [address] Aug, [facility] [address] [id number] [address] [place] [address], [place] [address] Aug, [facility] [address] [id number] [address] [place] [address], [place] [address] Jul, [facility] [address] [id number] [address] [place] [address], [place] [address] Jul, [facility] [address] [id number] [address] [place] [address], [place] [address] Jun, [facility] [address] [id number] [address] [place] [address], [place] [address] Jun, [facility] [address] [id number] [address] [place] [address], [place] [address] Jun, [facility] [address] [id number] [address] [place] [address], [place] [address] Jun, [facility] [address] [id number] [address] [place] [address], [place] [address] Jun, [facility] [address] [id number] [address] [place] [address], [place] [address] Jun, [facility] [address] [id number] [address] [place] [address], [place] [address] May, [facility] [address] [id number] [address] [place] [address], [place] [address] May, [facility] [address] [id number] [address] [place] [address], [place] [address] Apr, [facility] [address] [id number] [address] [place] [address] Apr, [facility] [address] [id number] [address] [place] [address] Mar, [facility] [address] [id number] [address] [place] [address] Mar, [facility] [address] [id number] [address] [place] [address], [place] [address] Mar, [facility] [address] [id number] [address] [place] [address], [place] [address] Feb, [facility] [address] [id number] [address] [place] [id number] Jan, [facility] [address] [id number] [address] [place] [id number] December, [facility] [address] [id number] [address] [place] [address], [place] [address] December, [facility] [address] [id number] [address] [place] [address], [place] [address] December, [facility] [address] [id number] [address] [place] [address], [place] [address] December, [facility] [address] [id number] [address] [place] [address], [place] [address] December, [facility] [address] [id number] [address] [place] [address], [place] [address] December, [facility] [address] [id number] [address] [place] [address], [place] [address] Nov, [facility] [address] [id number] [address] [place] [address], [place] [address] Nov, [facility] [address] [id number] [address] [place] [address], [place] [address] Nov, [facility] [address] [id number] [address] [place] [address], [place] [address] 05 Oct, 2012 [facility] [address] [id number] [address] [place] [address], [place] [address] 14 Jun, 2012 [facility] [address] [id number] [address] [place] [address], [place] [address] 14 Jun, 2012 [facility] [address] [id number] [address] [place] [address], [place] [address] Jun, [facility] [address] [id number] [address] [place] [address], [place] [address] Jun, [facility] [address] [id number] [address] [place] [address], [place] [address] 18 Apr, 2012 [facility] [address] [id number] [address] [place] [address], [place] [address] Mar, [facility] [address] [id number] [address] [place] [id number] Mar, [facility] [address] [id number] [address] [place] [id number] Jan, [facility] [address] [id number] [address] [place] [id number] December, [facility] [address] [id number] [address] [place] [phone] Nov, [facility] [address] [id number] [address] [place] [phone] Nov, [facility] [address] [id number] [address] [place] [id number] Nov, [facility] [address] [id number] [address] [place] [phone] Nov, [facility] [address] [id number] [address] [place] [phone] Aug, [facility] [address] [id number] [address] [place] [phone] Aug, [facility] [address] [id number] [address] [place] [phone] Jul, [facility] [address] [id number] [address] [place] [phone] Jun, [facility] [address] [id number] [address] [place] [phone] Jun, [facility] [address] [id number] [address] [place] [phone] Apr, [facility] [address] [id number] [address] [place] [phone] Feb, IMMUNIZATIONS No Known Immunizations SOCIAL HISTORY Never Assessed REASON FOR VISIT DOT physical PLAN OF CARE VITAL SIGNS MEDICATIONS Unknown Medications RESULTS No Results PROCEDURES No Known procedures INSTRUCTIONS MEDICATIONS ADMINISTERED No Known Medications MEDICAL (GENERAL) HISTORY Type Description Date Medical History Hypertension Medical History ADHD Medical History depression Medical History anxiety Surgical History section Surgical History collar bone repair
--- OUTSIDE RECORDS SUMMARY | 2020-02-11 01:31 | XMS REPORT ---
Author Author Elaine GALARZA Organization [facility] Address [address] [place] [address] Care Team Providers Care Dye Colorist Dyer Name Role Phone MARI GALARZA Unavailable PROBLEMS Type Condition ICD9-CM Code [id number] Code Onset Dates Condition S tatus SNOMED Code Problem Major depressive disorder, recurrent episode, in full remission F33.42 Active 371607470 Problem ADHD, predominantly inattentive type F90.0 Active 66609534 Problem Primary insomnia F51.01 Active 397 2004 Problem Non-seasonal allergic rhinitis due to pollen J30.1 Active 76571816 Problem Migraine without aura and without status migrain osus, not intractable G43.009 Active 514704313 Problem Essential hypertension I10 Active 60634462 Problem Seasonal allergies J30.2 Active 4 59951725 Problem Moderate episode of recurrent major depressive disorder F33.1 Active 877865588 Problem Intractable migraine without aura and with status migr ainosus G43.011 Active 126639323 ALLERGIES No Information ENCOUNTERS Encounter Location Date Diagnosis [place] [address] [place] [id number] [address] [place] [id number] Mar, [place] [address] [place] [id number] [address] [place] [phone] Feb, [place] [address] [place] [id number] [place] [phone] Jan, Major depressive disorder, r ecurrent episode, in full remission F33.42 [place] [address] [place] [id number] [place] [address] Jan, Moderate episode of recurren t major depressive disorder F33.1 ; Non-seasonal allergic rhinitis due to pollen J30.1 ; Migraine without aura and without status migrainosus, not intractable G43.009 and Sinus congestion R09.81 [facility] [address] [facility] [place] [id number] [address] [place] [phone] Jan, [place] [address] [place] [id number] [place] [phone] December, Moderate episode of recurren t major depressive disorder F33.1 [place] [address] [place] [id number] [place] [phone] December, [place] [address] [place] [id number] [place] [address] December, Moderate episode of recurren t major depressive disorder F33.1 [place] [address] [place] [id number] [place] [address] Nov, Moderate episode of recurren t major depressive disorder F33.1 and Intractable migraine without aura and with status migrainosus G43.011 [place] [address] [place] [id number] [place] [phone] Nov, [place] [id number] [place] [address] Oct, Major depressive disorder, r ecurrent episode, in full remission F33.42 ; Intractable migraine without aura and with status migrainosus G43.011 ; Weight gain R63.5 ; Vision changes H53.9 and Other fci (current) drug therapy Z79.899 [place] [id number] [place] [address] Oct, Encounter for pre-employment examination Z02.1 [facility] [id number] [place] [id number] 15 Oct, 2018 [facility] [address] [place] [id number] [place] [phone] 20 Sep, 2018 Acute non-recurrent maxillar y sinusitis J01.00 [place] [address] [place] [id number] [place] [id number] 14 Sep, 2018 [place] [address] [id number] [address] [place] [phone] Aug, [facility] [address] [id number] [address] [place] [address] Jul, ADHD, predominantly inattent randall type F90.0 and Primary insomnia F51.01 [facility] [address] [id number] [address] [place] [phone] Jun, ADHD, predominantly inattent randall type F90.0 [facility] [address] [id number] [address] [place] [address] May, ADHD, predominantly inattent randall type F90.0 ; Moderate episode of recurrent major depressive disorder F33.1 and Therapeutic drug monitoring Z51.81 [facility] [address] [id number] [address] [place] [phone] May, [facility] [address] [id number] [address] [place] [phone] Apr, ADHD, predominantly inattent randall type F90.0 [facility] [address] [id number] [address] [place] [id number] 10 Apr, 2018 ADHD, predominantly inattent randall type F90.0 and Major depressive disorder, recurrent episode, in full remission F33.42 [facility] [address] [id number] [address] [place] [phone] Mar, ADHD, predominantly inattent randall type F90.0 and Primary insomnia F51.01 [facility] [address] [id number] [address] [place] [phone] Mar, [facility] [address] [id number] [address] [place] [phone] Mar, ADHD, predominantly inattent randall type F90.0 and Primary insomnia F51.01 [facility] [address] [id number] [address] [place] [id number] Feb, ADHD, predominantly inattent randall type F90.0 and Primary insomnia F51.01 [facility] [address] [facility] [place] [id number] [address] [place] [id number] Jan, ADHD, predominantly inattent randall type F90.0 and Primary insomnia F51.01 [facility] [address] [facility] [place] [id number] [address] [place] [phone] December, Seasonal allergies J30.2 and Post-nasal drip R09.82 [facility] [address] [facility] [place] [id number] [address] [place] [phone] December, ADHD, predominantly inattent randall type F90.0 and Primary insomnia F51.01 [place] [address] [facility] [place] [id number] [address] [place] [address] Nov, ADHD, predominantly inattent randall type F90.0 [place] [address] [facility] [place] [id number] [address] [place] [address] Oct, ADHD, predominantly inattent randall type F90.0 [facility] [address] [facility] [place] [id number] [address] [place] [id number] Oct, ADHD, predominantly inattent randall type F90.0 ; Primary insomnia F51.01 and Screening, lipid Z13.220 [place] [address] [place] [id number] [place] [id number] Sep, ADHD, predominantly inattent randall type F90.0 [facility] [address] [facility] [place] [id number] [address] [place] [phone] Aug, ADHD, predominantly inattent randall type F90.0 and Primary insomnia F51.01 [facility] [address] [facility] [place] [id number] [address] [place] [phone] Jul, ADHD, predominantly inattent randall type F90.0 [place] [address] [facility] [place] [id number] [address] [place] [id number] Jul, Primary insomnia F51.01 and ADHD, predominantly inattentive type F90.0 [place] [address] [place] [id number] [place] [phone] Jun, ADHD, predominantly inattent randall type F90.0 [facility] [address] [id number] [address] [place] [id number] May, ADHD, predominantly inattent randall type F90.0 [facility] [address] [facility] [place] [id number] [address] [place] [id number] Apr, ADHD, predominantly inattent randall type F90.0 [facility] [address] [id number] [address] [place] [phone] Mar, ADHD, predominantly inattent randall type F90.0 ; Primary insomnia F51.01 ; Major depressive disorder, recurrent episode, in full remission F33.42 and Acne comedone L70.0 [facility] [address] [facility] [place] [id number] [address] [place] [phone] Mar, Major depressive disorder, r ecurrent episode, in full remission F33.42 and ADHD, predominantly inattentive type F90.0 [facility] [address] [facility] [place] [id number] [address] [place] [address] Feb, ADHD, predominantly inattent randall type F90.0 [facility] [address] [facility] [place] [id number] [address] [place] [id number] Feb, Primary insomnia F51.01 [facility] [address] [facility] [place] [id number] [address] [place] [phone] Jan, ADHD, predominantly inattent randall type F90.0 and Primary insomnia F51.01 [facility] [address] [facility] [place] [id number] [address] [place] [id number] December, ADHD, predominantly inattent randall type F90.0 and Primary insomnia F51.01 [facility] [address] [facility] [place] [id number] [address] [place] [phone] Oct, ADHD, predominantly inattent randall type F90.0 and Primary insomnia F51.01 [facility] [address] [facility] [place] [id number] [address] [place] [id number] Sep, ADHD, predominantly inattent randall type F90.0 and Primary insomnia F51.01 [facility] [address] [facility] [place] [id number] [address] [place] [id number] Aug, ADHD, predominantly inattent randall type F90.0 and Primary insomnia F51.01 [place] [address] [facility] [place] [id number] [address] [place] [id number] Jul, Major depressive disorder, r ecurrent episode, in full remission F33.42 ; ADHD, predominantly inattentive type F90.0 ; Primary insomnia F51.01 ; Acute non-recurrent maxillary sinusitis J01.00 and Screening, lipid Z13.220 [facility] [address] [facility] [place] [id number] [address] [place] [phone] Jun, Acute non-recurrent maxillar y sinusitis J01.00 [facility] [address] [facility] [place] [id number] [address] [place] [id number] Jun, ADHD, predominantly inattent randall type F90.0 [facility] [address] [facility] [place] [id number] [address] [place] [phone] May, [facility] [address] [facility] [place] [id number] [address] [place] [id number] Apr, [facility] [address] [facility] [place] [id number] [address] [place] [phone] Feb, Rash R21 and Scabies B86 [facility] [address] [facility] [place] [id number] [address] [place] [phone] Feb, ADHD, predominantly inattent randall type F90.0 and Major depressive disorder, recurrent episode, in full remission F33.42 [facility] [address] [facility] [place] [id number] [address] [place] [phone] Feb, [place] [address] [facility] [place] [id number] [address] [place] [phone] Oct, [facility] [address] [id number] [address] [place] [id number] Sep, [facility] [address] [id number] [address] [place] [id number] Sep, [facility] [address] [id number] [address] [place] [phone] Aug, [facility] [address] [id number] [address] [place] [id number] Jul, [facility] [address] [id number] [address] [place] [phone] Jun, [facility] [address] [id number] [address] [place] [phone] May, [facility] [address] [facility] [place] [id number] [address] [place] [address] May, ADHD, predominantly inattent randall type F90.0 and Major depressive disorder, recurrent episode, in full remission F33.42 [facility] [address] [id number] [address] [place] [phone] Feb, Major depressive disorder, r ecurrent episode, moderate 296.32 [facility] [address] [id number] [address] [place] [id number] Feb, [facility] [address] [id number] [address] [place] [phone] Jan, [facility] [address] [id number] [address] [place] [phone] Jan, [facility] [address] [id number] [address] [place] [id number] December, [facility] [address] [id number] [address] [place] [phone] Nov, [facility] [address] [id number] [address] [place] [id number] Nov, [facility] [address] [id number] [address] [place] [address], [place] [address] Oct, [facility] [address] [id number] [address] [place] [address], [place] [address] Oct, [facility] [address] [id number] [address] [place] [address], [place] [address] Sep, [facility] [address] [id number] [address] [place] [address], [place] [address] Sep, [facility] [address] [id number] [address] [place] [address], [place] [address] Sep, [facility] [address] [id number] [address] [place] [address], [place] [id number] Sep, [facility] [address] [id number] [address] [place] [address], [place] [address] Aug, [facility] [address] [id number] [address] [place] [address], [place] [address] Aug, [facility] [address] [id number] [address] [place] [address], [place] [address] Aug, [facility] [address] [id number] [address] [place] [address], [place] [phone] Aug, [facility] [address] [id number] [address] [place] [address], [place] [address] Aug, [facility] [address] [id number] [address] [place] [address], [place] [address] Aug, [facility] [address] [id number] [address] [place] [address], [place] [address] Jul, [facility] [address] [id number] [address] [place] [address], [place] [address] Jul, [facility] [address] [id number] [address] [place] [address], [place] [address] Jun, [facility] [address] [id number] [address] [place] [address], [place] [address] Jun, [facility] [address] [id number] [address] [place] [address], [place] [address] May, [facility] [address] [id number] [address] [place] [address], [place] [address] May, [facility] [address] [id number] [address] [place] [address], [place] [address] Apr, [facility] [address] [id number] [address] [place] [address], [place] [address] Apr, [facility] [address] [id number] [address] [place] [address], [place] [address] Apr, [facility] [address] [id number] [address] [place] [address], [place] [address] Mar, [facility] [address] [id number] [address] [place] [address], [place] [address] Mar, [facility] [address] [id number] [address] [place] [address], [place] [address] Mar, [facility] [address] [id number] [address] [place] [address], [place] [address] Mar, [facility] [address] [id number] [address] [place] [address], [place] [address] Feb, [facility] [address] [id number] [address] [place] [address], [place] [address] Feb, [facility] [address] [id number] [address] [place] [address], [place] [address] Feb, [facility] [address] [id number] [address] [place] [address], [place] [address] Feb, [facility] [address] [id number] [address] [place] [address], [place] [address] Feb, [facility] [address] [id number] [address] [place] [address], [place] [address] Feb, [facility] [address] [id number] [facility] [place] [address] Jan, [facility] [address] [id number] [address] [place] [address], [place] [address] Jan, [facility] [address] [id number] [address] [place] [address], [place] [address] Jan, [facility] [address] [id number] [address] [place] [address], [place] [address] Jan, [facility] [address] [id number] [address] [place] [address], [place] [address] December, [facility] [address] [id number] [address] [place] [address], [place] [address] December, [facility] [address] [id number] [address] [place] [address], [place] [address] December, [facility] [address] [id number] [address] [place] [address], [place] [address] December, [facility] [address] [id number] [address] [place] [address], [place] [address] December, [facility] [address] [id number] [address] [place] [address], [place] [address] December, [facility] [address] [id number] [address] [place] [address], [place] [address] December, [facility] [address] [id number] [address] [place] [address], [place] [address] December, [facility] [address] [id number] [address] [place] [address], [place] [address] December, [facility] [address] [id number] [address] [place] [address], [place] [address] December, [facility] [address] [id number] [address] [place] [address], [place] [address] Nov, [facility] [address] [id number] [address] [place] [address], [place] [address] Nov, [facility] [address] [id number] [address] [place] [address], [place] [address] Oct, [facility] [address] [id number] [address] [place] [address], [place] [address] Oct, [facility] [address] [id number] [address] [place] [address], [place] [address] Oct, [facility] [address] [id number] [address] [place] [address], [place] [address] Oct, [facility] [address] [id number] [address] [place] [address], [place] [address] Oct, [facility] [address] [id number] [address] [place] [address], [place] [address] Oct, [facility] [address] [id number] [address] [place] [address], [place] [address] Aug, [facility] [address] [id number] [address] [place] [address], [place] [address] Aug, [facility] [address] [id number] [address] [place] [address], [place] [address] Aug, [facility] [address] [id number] [address] [place] [address], [place] [address] Aug, [facility] [address] [id number] [address] [place] [address], [place] [address] Aug, [facility] [address] [id number] [address] [place] [address], [place] [address] Aug, [facility] [address] [id number] [address] [place] [address], [place] [address] Aug, [facility] [address] [id number] [address] [place] [address], [place] [address] Aug, [facility] [address] [id number] [address] [place] [address], [place] [id number] Jul, [facility] [address] [id number] [address] [place] [address], [place] [address] Jul, [facility] [address] [id number] [address] [place] [address], [place] [address] Jun, [facility] [address] [id number] [address] [place] [address], [place] [id number] Jun, [facility] [address] [id number] [address] [place] [address], [place] [id number] Jun, [facility] [address] [id number] [address] [place] [address], [place] [address] Jun, [facility] [address] [id number] [address] [place] [address], [place] [id number] Jun, [facility] [address] [id number] [address] [place] [address], [place] [id number] Jun, [facility] [address] [id number] [address] [place] [address], [place] [address] May, [facility] [address] [id number] [address] [place] [address], [place] [address] May, [facility] [address] [id number] [address] [place] [address], [place] [id number] Apr, [facility] [address] [id number] [address] [place] [address], [place] [id number] Apr, [facility] [address] [id number] [address] [place] [address], [place] [address] Mar, [facility] [address] [id number] [address] [place] [address], [place] [address] Mar, [facility] [address] [id number] [address] [place] [address], [place] [id number] Mar, [facility] [address] [id number] [address] [place] [address], [place] [id number] Feb, [facility] [address] [id number] [address] [place] [address], [place] [id number] Jan, [facility] [address] [id number] [address] [place] [address], [place] [address] December, [facility] [address] [id number] [address] [place] [address], [place] [address] December, [facility] [address] [id number] [address] [place] [address], [place] [address] December, [facility] [address] [id number] [address] [place] [address], [place] [address] December, [facility] [address] [id number] [address] [place] [address], [place] [address] December, [facility] [address] [id number] [address] [place] [address], [place] [address] December, [facility] [address] [id number] [address] [place] [address], [place] [address] Nov, [facility] [address] [id number] [address] [place] [address], [place] [id number] Nov, [facility] [address] [id number] [address] [place] [address], [place] [id number] 08 Nov, 2012 [facility] [address] [id number] [address] [place] [address], [place] [id number] 05 Oct, 2012 [facility] [address] [id number] [address] [place] [address], [place] [id number] 14 Jun, 2012 [facility] [address] [id number] [address] [place] [address], [place] [id number] 14 Jun, 2012 [facility] [address] [id number] [address] [place] [address], [place] [id number] Jun, [facility] [address] [id number] [address] [place] [address], [place] [id number] Jun, [facility] [address] [id number] [address] [place] [address], [place] [id number] 18 Apr, 2012 [facility] [address] [id number] [address] [place] [address], [place] [id number] Mar, [facility] [address] [id number] [address] [place] [id number] Mar, [facility] [address] [id number] [address] [place] [phone] Jan, [facility] [address] [id number] [address] [place] [id number] December, [facility] [address] [id number] [address] [place] [phone] Nov, [facility] [address] [id number] [address] [place] [phone] Nov, [facility] [address] [id number] [address] [place] [phone] Nov, [facility] [address] [id number] [address] [place] [id number] Nov, [facility] [address] [id number] [address] [place] [phone] Aug, [facility] [address] [id number] [address] [place] [phone] Aug, [facility] [address] [id number] [address] [place] [id number] Jul, [facility] [address] [id number] [address] [place] [phone] Jun, [facility] [address] [id number] [address] [place] [phone] Jun, [facility] [address] [id number] [address] [place] [id number] Apr, [facility] [address] [id number] [address] [place] [id number] Feb, IMMUNIZATIONS No Known Immunizations SOCIAL HISTORY Never Assessed REASON FOR VISIT PLAN OF CARE VITAL SIGNS Height 64 in 2011-12-01 Weight 184.5 lbs 2011-12-01 Temperature 98.7 degrees Fahrenheit 2011-12-01 Heart Rate 72 bpm 2011-12-01 Respiratory Rate 18 2011-12-01 Blood pressure systolic 146 mmHg 2011-12-01 Blood pressure diastolic 79 mmHg 2011-12-01 MEDICATIONS Unknown Medications RESULTS No Results PROCEDURES Procedure Date Ordered Result Body Site X-RAY EXAM OF FOOT December 01, 2011 INSTRUCTIONS MEDICATIONS ADMINISTERED No Known Medications MEDICAL (GENERAL) HISTORY Type Description Date Medical History Hypertension Medical History ADHD Medical History depression Medical History anxiety Surgical History section Surgical History collar bone repair
--- OUTSIDE RECORDS SUMMARY | 2020-02-11 01:32 | XMS REPORT ---
Author Author Elaine GALARZA Organization [facility] Address [address] [place] [address] Care Team Providers Care Fixed Interest Dealer Name Role Phone MARI GALARZA Unavailable PROBLEMS Type Condition ICD9-CM Code [id number] Code Onset Dates Condition S tatus SNOMED Code Problem Major depressive disorder, recurrent episode, in full remission F33.42 Active 235097354 Problem ADHD, predominantly inattentive type F90.0 Active 56059403 Problem Primary insomnia F51.01 Active 397 2004 Problem Non-seasonal allergic rhinitis due to pollen J30.1 Active 10078028 Problem Migraine without aura and without status migrain osus, not intractable G43.009 Active 761391836 Problem Essential hypertension I10 Active 41258110 Problem Seasonal allergies J30.2 Active 4 44300180 Problem Moderate episode of recurrent major depressive disorder F33.1 Active 944155612 Problem Intractable migraine without aura and with status migr ainosus G43.011 Active 308347584 ALLERGIES No Information ENCOUNTERS Encounter Location Date Diagnosis [place] [address] [place] [id number] [address] [place] [address] Feb, [facility] [address] [place] [id number] [address] [place] [address] Jan, Major depressive disorder, r ecurrent episode, in full remission F33.42 [facility] [address] [facility] [id number] [address] [place] [address] Jan, Moderate episode of recurren t major depressive disorder F33.1 ; Non-seasonal allergic rhinitis due to pollen J30.1 ; Migraine without aura and without status migrainosus, not intractable G43.009 and Sinus congestion R09.81 [place] [address] [facility] [id number] [address] [place] [address] Jan, [facility] [address] [id number] [address] [place] [address] December, Moderate episode of recurren t major depressive disorder F33.1 [facility] [address] [id number] [address] [place] [address] December, [facility] [address] [facility] [id number] [address] [place] [address] December, Moderate episode of recurren t major depressive disorder F33.1 [facility] [address] [id number] [address] [place] [address] Nov, Moderate episode of recurren t major depressive disorder F33.1 and Intractable migraine without aura and with status migrainosus G43.011 [place] [address] [facility] [id number] [address] [place] [address] Nov, [place] [address] [facility] [id number] [address] [place] [address] Oct, Major depressive disorder, r ecurrent episode, in full remission F33.42 ; Intractable migraine without aura and with status migrainosus G43.011 ; Weight gain R63.5 ; Vision changes H53.9 and Other chcf (current) drug therapy Z79.899 [place] [address] [facility] [id number] [address] [place] [address] Oct, Encounter for pre-employment examination Z02.1 [facility] [address] [facility] [id number] [address] [place] [address] Oct, [facility] [address] [facility] [id number] [address] [place] [address] Sep, Acute non-recurrent maxillar y sinusitis J01.00 [facility] [address] [facility] [id number] [address] [place] [address] 14 Sep, 2018 [facility] [address] [facility] [id number] [address] [place] [address] Aug, [facility] [address] [facility] [id number] [address] [place] [address] Jul, ADHD, predominantly inattent randall type F90.0 and Primary insomnia F51.01 [facility] [address] [facility] [id number] [address] [place] [address] Jun, ADHD, predominantly inattent randall type F90.0 [place] [address] [facility] [id number] [address] [place] [address] May, ADHD, predominantly inattent randall type F90.0 ; Moderate episode of recurrent major depressive disorder F33.1 and Therapeutic drug monitoring Z51.81 [place] [address] [facility] [id number] [address] [place] [address] May, [place] [address] [facility] [id number] [address] [place] [address] Apr, ADHD, predominantly inattent randall type F90.0 [place] [address] [facility] [id number] [address] [place] [address] 10 Apr, 2018 ADHD, predominantly inattent randall type F90.0 and Major depressive disorder, recurrent episode, in full remission F33.42 [place] [address] [facility] [id number] [address] [place] [address] Mar, ADHD, predominantly inattent randall type F90.0 and Primary insomnia F51.01 [place] [address] [facility] [id number] [address] [place] [address] Mar, [place] [address] [facility] [id number] [address] [place] [address] Mar, ADHD, predominantly inattent randall type F90.0 and Primary insomnia F51.01 [place] [address] [facility] [id number] [address] [place] [address] Feb, ADHD, predominantly inattent randall type F90.0 and Primary insomnia F51.01 [place] [address] [facility] [id number] [address] [place] [address] Jan, ADHD, predominantly inattent randall type F90.0 and Primary insomnia F51.01 [facility] [address] [facility] [id number] [address] [place] [address] December, Seasonal allergies J30.2 and Post-nasal drip R09.82 [facility] [address] [facility] [id number] [address] [place] [address] December, ADHD, predominantly inattent randall type F90.0 and Primary insomnia F51.01 [facility] [address] [facility] [id number] [address] [place] [address] Nov, ADHD, predominantly inattent randall type F90.0 [facility] [address] [facility] [id number] [address] [place] [address] Oct, ADHD, predominantly inattent randall type F90.0 [facility] [address] [place] [id number] [address] [place] [address] Oct, ADHD, predominantly inattent randall type F90.0 ; Primary insomnia F51.01 and Screening, lipid Z13.220 [place] [address] [place] [id number] [address] [place] [address] Sep, ADHD, predominantly inattent randall type F90.0 [facility] [address] [facility] [id number] [address] [place] [address] Aug, ADHD, predominantly inattent randall type F90.0 and Primary insomnia F51.01 [facility] [address] [facility] [id number] [address] [place] [address] Jul, ADHD, predominantly inattent randall type F90.0 [facility] [address] [facility] [id number] [address] [place] [address] Jul, Primary insomnia F51.01 and ADHD, predominantly inattentive type F90.0 [facility] [address] [facility] [id number] [address] [place] [address] Jun, ADHD, predominantly inattent randall type F90.0 [facility] [address] [facility] [id number] [address] [place] [address] May, ADHD, predominantly inattent randall type F90.0 [facility] [address] [facility] [id number] [address] [place] [address] Apr, ADHD, predominantly inattent randall type F90.0 [facility] [address] [facility] [id number] [address] [place] [address] Mar, ADHD, predominantly inattent randall type F90.0 ; Primary insomnia F51.01 ; Major depressive disorder, recurrent episode, in full remission F33.42 and Acne comedone L70.0 [facility] [address] [facility] [id number] [address] [place] [address] Mar, Major depressive disorder, r ecurrent episode, in full remission F33.42 and ADHD, predominantly inattentive type F90.0 [place] [address] [facility] [id number] [address] [place] [address] Feb, ADHD, predominantly inattent randall type F90.0 [facility] [address] [facility] [id number] [address] [place] [address] Feb, Primary insomnia F51.01 [facility] [address] [facility] [id number] [address] [place] [address] Jan, ADHD, predominantly inattent randall type F90.0 and Primary insomnia F51.01 [facility] [address] [facility] [id number] [address] [place] [address] December, ADHD, predominantly inattent randall type F90.0 and Primary insomnia F51.01 [facility] [address] [facility] [id number] [address] [place] [address] Oct, ADHD, predominantly inattent randall type F90.0 and Primary insomnia F51.01 [facility] [address] [facility] [id number] [address] [place] [address] Sep, ADHD, predominantly inattent randall type F90.0 and Primary insomnia F51.01 [facility] [address] [id number] [address] [place] [address] Aug, ADHD, predominantly inattent randall type F90.0 and Primary insomnia F51.01 [facility] [address] [id number] [address] [place] [address] Jul, Major depressive disorder, r ecurrent episode, in full remission F33.42 ; ADHD, predominantly inattentive type F90.0 ; Primary insomnia F51.01 ; Acute non-recurrent maxillary sinusitis J01.00 and Screening, lipid Z13.220 [facility] [address] [id number] [address] [place] [address] Jun, Acute non-recurrent maxillar y sinusitis J01.00 [facility] [address] [facility] [id number] [address] [place] [address] Jun, ADHD, predominantly inattent randall type F90.0 [facility] [address] [id number] [address] [place] [address] May, [facility] [address] [facility] [id number] [address] [place] [address] Apr, [facility] [address] [id number] [address] [place] [address] Feb, Rash R21 and Scabies B86 [facility] [address] [facility] [id number] [address] [place] [address] Feb, ADHD, predominantly inattent randall type F90.0 and Major depressive disorder, recurrent episode, in full remission F33.42 [facility] [address] [facility] [id number] [address] [place] [address] Feb, [facility] [address] [facility] [id number] [address] [place] [address] Oct, [facility] [address] [facility] [id number] [address] [place] [address] Sep, [facility] [address] [id number] [address] [place] [address] Sep, [facility] [address] [id number] [address] [place] [address] Aug, [facility] [address] [facility] [id number] [address] [place] [address] Jul, [facility] [address] [id number] [address] [place] [address] Jun, [facility] [address] [id number] [address] [place] [address] May, [facility] [address] [id number] [address] [place] [address] May, ADHD, predominantly inattent randall type F90.0 and Major depressive disorder, recurrent episode, in full remission F33.42 [facility] [address] [id number] [address] [place] [address] Feb, Major depressive disorder, r ecurrent episode, moderate 296.32 [facility] [address] [id number] [address] [place] [address] Feb, [facility] [address] [id number] [address] [place] [address] Jan, [facility] [address] [id number] [address] [place] [address] Jan, [facility] [address] [id number] [address] [place] [address] December, [facility] [address] [id number] [address] [place] [address] Nov, [facility] [address] [id number] [address] [place] [address] Nov, [facility] [address] [facility] [id number] [address] [place] [address] Oct, [facility] [address] [id number] [address] [place] [address], [place] [address] Oct, [facility] [address] [id number] [address] [place] [address], [place] [address] Sep, [facility] [address] [id number] [address] [place] [address], [place] [address] Sep, [facility] [address] [id number] [address] [place] [address], [place] [address] Sep, [facility] [address] [id number] [address] [place] [address], [place] [address] Sep, [facility] [address] [id number] [address] [place] [address], [place] [address] Aug, [facility] [address] [id number] [address] [place] [address], [place] [address] Aug, [facility] [address] [id number] [address] [place] [address], [place] [address] Aug, [facility] [address] [id number] [address] [place] [address], [place] [address] Aug, [facility] [address] [id number] [address] [place] [address], [place] [address] Aug, [facility] [address] [id number] [address] [place] [address], [place] [address] Aug, [facility] [address] [id number] [address] [place] [address], [place] [address] Jul, [facility] [address] [id number] [address] [place] [address], [place] [address] Jul, [facility] [address] [id number] [address] [place] [address], [place] [address] Jun, [facility] [address] [id number] [address] [place] [address], [place] [address] Jun, [facility] [address] [id number] [address] [place] [address], [place] [address] May, [facility] [address] [id number] [address] [place] [address], [place] [address] May, [facility] [address] [id number] [address] [place] [address], [place] [address] Apr, [facility] [address] [id number] [address] [place] [address], [place] [address] Apr, [facility] [address] [id number] [address] [place] [address], [place] [address] Apr, [facility] [address] [id number] [address] [place] [address], [place] [address] Mar, [facility] [address] [id number] [address] [place] [address], [place] [address] Mar, [facility] [address] [id number] [address] [place] [address], [place] [address] Mar, [facility] [address] [id number] [address] [place] [address], [place] [address] Mar, [facility] [address] [id number] [address] [place] [address], [place] [address] Feb, [facility] [address] [id number] [address] [place] [address], [place] [address] Feb, [facility] [address] [id number] [address] [place] [address], [place] [address] Feb, [facility] [address] [id number] [address] [place] [address], [place] [address] Feb, [facility] [address] [id number] [address] [place] [address], [place] [address] Feb, [facility] [address] [id number] [address] [place] [address], [place] [address] Feb, [facility] [address] [id number] [address] [place] [address], [place] [address] Jan, [facility] [address] [id number] [address] [place] [address], [place] [address] Jan, [facility] [address] [id number] [address] [place] [address], [place] [address] Jan, [facility] [address] [id number] [address] [place] [address], [place] [address] Jan, [facility] [address] [id number] [address] [place] [address], [place] [address] December, [facility] [address] [id number] [address] [place] [address], [place] [address] December, [facility] [address] [id number] [address] [place] [address], [place] [address] December, [facility] [address] [id number] [address] [place] [address], [place] [address] December, [facility] [address] [id number] [address] [place] [address], [place] [address] December, [facility] [address] [id number] [address] [place] [address], [place] [address] December, [facility] [address] [id number] [address] [place] [address], [place] [address] December, [facility] [address] [id number] [address] [place] [address], [place] [address] December, [facility] [address] [id number] [address] [place] [address], [place] [address] December, [facility] [address] [id number] [address] [place] [address], [place] [address] December, [facility] [address] [id number] [address] [place] [address], [place] [address] Nov, [facility] [address] [id number] [address] [place] [address], [place] [address] Nov, [facility] [address] [id number] [address] [place] [address], [place] [address] Oct, [facility] [address] [id number] [address] [place] [address], [place] [address] Oct, [facility] [address] [id number] [address] [place] [address], [place] [address] Oct, [facility] [address] [id number] [address] [place] [address], [place] [address] Oct, [facility] [address] [id number] [address] [place] [address], [place] [address] Oct, [facility] [address] [id number] [address] [place] [address], [place] [address] Oct, [facility] [address] [id number] [address] [place] [address], [place] [address] Aug, [facility] [address] [id number] [address] [place] [address], [place] [address] Aug, [facility] [address] [id number] [address] [place] [address], [place] [address] Aug, [facility] [address] [id number] [address] [place] [address], [place] [address] Aug, [facility] [address] [id number] [address] [place] [address], [place] [address] Aug, [facility] [address] [id number] [address] [place] [address], [place] [address] Aug, [facility] [address] [id number] [address] [place] [address], [place] [address] Aug, [facility] [address] [id number] [address] [place] [address], [place] [address] Aug, [facility] [address] [id number] [address] [place] [address], [place] [address] Jul, [facility] [address] [id number] [address] [place] [address], [place] [address] Jul, [facility] [address] [id number] [address] [place] [address], [place] [address] Jun, [facility] [address] [id number] [address] [place] [address], [place] [address] Jun, [facility] [address] [id number] [address] [place] [address], [place] [address] Jun, [facility] [address] [id number] [address] [place] [address], [place] [address] Jun, [facility] [address] [id number] [address] [place] [address], [place] [address] Jun, [facility] [address] [id number] [address] [place] [address], [place] [address] Jun, [facility] [address] [id number] [address] [place] [address], [place] [address] May, [facility] [address] [id number] [address] [place] [address], [place] [address] May, [facility] [address] [id number] [address] [place] [address], [place] [address] Apr, [facility] [address] [id number] [address] [place] [address], [place] [address] Apr, [facility] [address] [id number] [address] [place] [address], [place] [address] Mar, [facility] [address] [id number] [address] [place] [address], [place] [address] Mar, [facility] [address] [id number] [address] [place] [address], [place] [address] Mar, [facility] [address] [id number] [address] [place] [address], [place] [address] Feb, [facility] [address] [id number] [address] [place] [address], [place] [address] Jan, [facility] [address] [id number] [address] [place] [address], [place] [address] December, [facility] [address] [id number] [address] [place] [address], [place] [address] December, [facility] [address] [id number] [address] [place] [address], [place] [address] December, [facility] [address] [id number] [address] [place] [address], [place] [address] December, [facility] [address] [id number] [address] [place] [address], [place] [address] December, [facility] [address] [id number] [address] [place] [address], [place] [address] December, [facility] [address] [id number] [address] [place] [address], [place] [address] Nov, [facility] [address] [id number] [address] [place] [address], [place] [address] Nov, [facility] [address] [id number] [address] [place] [address], [place] [address] Nov, [facility] [facility] [address] [id number] [address] [place] [address], [place] [address] Oct, [facility] [address] [id number] [address] [place] [address], [place] [id number] 14 Jun, 2012 [facility] [address] [id number] [address] [place] [address], [place] [address] 14 Jun, 2012 [facility] [address] [id number] [address] [place] [address], [place] [address] Jun, [facility] [address] [id number] [address] [place] [address], [place] [address] Jun, [facility] [address] [id number] [address] [place] [address], [place] [address] 18 Apr, 2012 [facility] [address] [id number] [address] [place] [address], [place] [address] Mar, [facility] [address] [id number] [address] [place] [address], [place] [address] Mar, [facility] [address] [id number] [address] [place] [id number] Jan, [facility] [address] [id number] [address] [place] [id number] December, [facility] [address] [id number] [address] [place] [phone] Nov, [facility] [address] [id number] [address] [place] [phone] Nov, [facility] [address] [id number] [address] [place] [phone] Nov, [facility] [address] [id number] [address] [place] [address] Nov, [facility] [address] [id number] [address] [place] [address] Aug, [facility] [address] [id number] [address] [place] [address] Aug, [facility] [address] [id number] [address] [place] [address] Jul, [facility] [address] [id number] [address] [place] [id number] Jun, [facility] [address] [id number] [address] [place] [address] Jun, [facility] [address] [id number] [address] [place] [address] Apr, [facility] [address] [id number] [address] [place] [id number] Feb, IMMUNIZATIONS No Known Immunizations SOCIAL HISTORY [...]
--- OUTSIDE RECORDS SUMMARY | 2020-02-11 01:32 | XMS REPORT ---
Author Author Elaine GALARZA Organization [facility] Address [address] [place] [address] Care Team Providers [facility] Representative Name Role Phone MARI GALARZA Unavailable PROBLEMS Type Condition ICD9-CM Code [id number] Code Onset Dates Condition S tatus SNOMED Code Problem Major depressive disorder, recurrent episode, in full remission F33.42 Active 671498826 Problem ADHD, predominantly inattentive type F90.0 Active 37775367 Problem Primary insomnia F51.01 Active 397 2004 Problem Non-seasonal allergic rhinitis due to pollen J30.1 Active 07730775 Problem Migraine without aura and without status migrain osus, not intractable G43.009 Active 005581893 Problem Essential hypertension I10 Active 16060501 Problem Seasonal allergies J30.2 Active 4 17866912 Problem Moderate episode of recurrent major depressive disorder F33.1 Active 275758663 Problem Intractable migraine without aura and with status migr ainosus G43.011 Active [id number] ALLERGIES No Information ENCOUNTERS Encounter Location Date Diagnosis [place] [address] [facility] [id number] [address] [place] [address] Feb, [place] [address] [facility] [id number] [address] [place] [address] Jan, [place] [address] [facility] [id number] [address] [place] [address] Jan, Moderate episode of recurren t major depressive disorder F33.1 ; Non-seasonal allergic rhinitis due to pollen J30.1 ; Migraine without aura and without status migrainosus, not intractable G43.009 and Sinus congestion R09.81 [place] [address] [facility] [id number] [address] [place] [address] Jan, [place] [address] [facility] [id number] [address] [place] [address] December, Moderate episode of recurren t major depressive disorder F33.1 [facility] [address] [facility] [id number] [address] [place] [phone] December, [facility] [address] [facility] [id number] [address] [place] [address] December, Moderate episode of recurren t major depressive disorder F33.1 [facility] [address] [facility] [id number] [address] [place] [address] Nov, Moderate episode of recurren t major depressive disorder F33.1 and Intractable migraine without aura and with status migrainosus G43.011 [facility] [address] [place] [id number] [address] [place] [address] Nov, [facility] [address] [place] [id number] [address] [place] [address] Oct, Major depressive disorder, r ecurrent episode, in full remission F33.42 ; Intractable migraine without aura and with status migrainosus G43.011 ; Weight gain R63.5 ; Vision changes H53.9 and Other correction (current) drug therapy Z79.899 [place] [address] [place] [id number] [address] [place] [address] Oct, Encounter for pre-employment examination Z02.1 [facility] [address] [place] [id number] [address] [place] [address] Oct, [facility] [address] [facility] [id number] [address] [place] [address] Sep, Acute non-recurrent maxillar y sinusitis J01.00 [facility] [address] [place] [id number] [address] [place] [id number] 14 Sep, 2018 [facility] [address] [facility] [id number] [address] [place] [address] Aug, [facility] [address] [place] [id number] [address] [place] [address] Jul, ADHD, predominantly inattent randall type F90.0 and Primary insomnia F51.01 [facility] [address] [facility] [id number] [address] [place] [address] Jun, ADHD, predominantly inattent randall type F90.0 [facility] [address] [facility] [id number] [address] [place] [address] May, ADHD, predominantly inattent randall type F90.0 ; Moderate episode of recurrent major depressive disorder F33.1 and Therapeutic drug monitoring Z51.81 [facility] [address] [facility] [id number] [address] [place] [address] May, [facility] [address] [facility] [id number] [address] [place] [id number] Apr, ADHD, predominantly inattent randall type F90.0 [facility] [address] [facility] [id number] [address] [place] [address] Apr, ADHD, predominantly inattent randall type F90.0 and Major depressive disorder, recurrent episode, in full remission F33.42 [facility] [address] [facility] [id number] [address] [place] [address] Mar, ADHD, predominantly inattent randall type F90.0 and Primary insomnia F51.01 [facility] [address] [facility] [id number] [address] [place] [address] Mar, [facility] [address] [facility] [id number] [address] [place] [address] Mar, ADHD, predominantly inattent randall type F90.0 and Primary insomnia F51.01 [facility] [address] [facility] [id number] [address] [place] [address] Feb, ADHD, predominantly inattent randall type F90.0 and Primary insomnia F51.01 [facility] [address] [facility] [id number] [address] [place] [address] Jan, ADHD, predominantly inattent randall type F90.0 and Primary insomnia F51.01 [facility] [address] [id number] [address] [place] [address] December, Seasonal allergies J30.2 and Post-nasal drip R09.82 [facility] [address] [id number] [address] [place] [address] December, ADHD, predominantly inattent randall type F90.0 and Primary insomnia F51.01 [facility] [address] [id number] [address] [place] [address] Nov, ADHD, predominantly inattent randall type F90.0 [facility] [address] [id number] [address] [place] [id number] Oct, ADHD, predominantly inattent randall type F90.0 [facility] [address] [facility] [id number] [address] [place] [address] Oct, ADHD, predominantly inattent randall type F90.0 ; Primary insomnia F51.01 and Screening, lipid Z13.220 [facility] [address] [id number] [address] [place] [id number] Sep, ADHD, predominantly inattent randall type F90.0 [facility] [address] [id number] [address] [place] [address] Aug, ADHD, predominantly inattent randall type F90.0 and Primary insomnia F51.01 [facility] [address] [id number] [address] [place] [address] Jul, ADHD, predominantly inattent randall type F90.0 [facility] [address] [id number] [address] [place] [address] Jul, Primary insomnia F51.01 and ADHD, predominantly inattentive type F90.0 [facility] [address] [id number] [address] [place] [id number] Jun, ADHD, predominantly inattent randall type F90.0 [facility] [address] [id number] [address] [place] [address] May, ADHD, predominantly inattent randall type F90.0 [facility] [address] [id number] [address] [place] [address] Apr, ADHD, predominantly inattent randall type F90.0 [facility] [address] [id number] [address] [place] [id number] Mar, ADHD, predominantly inattent randall type F90.0 ; Primary insomnia F51.01 ; Major depressive disorder, recurrent episode, in full remission F33.42 and Acne comedone L70.0 [facility] [address] [id number] [address] [place] [address] Mar, Major depressive disorder, r ecurrent episode, in full remission F33.42 and ADHD, predominantly inattentive type F90.0 [facility] [address] [facility] [id number] [address] [place] [id number] Feb, ADHD, predominantly inattent randall type F90.0 [facility] [address] [facility] [id number] [address] [place] [address] Feb, Primary insomnia F51.01 [facility] [address] [facility] [id number] [address] [place] [address] Jan, ADHD, predominantly inattent randall type F90.0 and Primary insomnia F51.01 [facility] [address] [facility] [id number] [address] [place] [address] December, ADHD, predominantly inattent randall type F90.0 and Primary insomnia F51.01 [facility] [address] [id number] [address] [place] [id number] Oct, ADHD, predominantly inattent randall type F90.0 and Primary insomnia F51.01 [facility] [address] [id number] [address] [place] [address] Sep, ADHD, predominantly inattent randall type F90.0 and Primary insomnia F51.01 [facility] [address] [id number] [address] [place] [id number] Aug, ADHD, predominantly inattent randall type F90.0 and Primary insomnia F51.01 [facility] [address] [id number] [address] [place] [address] Jul, Major depressive disorder, r ecurrent episode, in full remission F33.42 ; ADHD, predominantly inattentive type F90.0 ; Primary insomnia F51.01 ; Acute non-recurrent maxillary sinusitis J01.00 and Screening, lipid Z13.220 [facility] [address] [id number] [address] [place] [id number] Jun, Acute non-recurrent maxillar y sinusitis J01.00 [facility] [address] [id number] [address] [place] [id number] Jun, ADHD, predominantly inattent randall type F90.0 [facility] [address] [id number] [address] [place] [id number] May, [facility] [address] [id number] [address] [place] [phone] Apr, [facility] [address] [id number] [address] [place] [phone] Feb, Rash R21 and Scabies B86 [facility] [address] [id number] [address] [place] [id number] Feb, ADHD, predominantly inattent randall type F90.0 and Major depressive disorder, recurrent episode, in full remission F33.42 [facility] [address] [id number] [address] [place] [phone] Feb, [facility] [address] [id number] [address] [place] [id number] Oct, [facility] [address] [facility] [id number] [address] [place] [id number] Sep, [facility] [address] [id number] [address] [place] [phone] Sep, [facility] [address] [id number] [address] [place] [id number] Aug, [facility] [address] [facility] [id number] [address] [place] [id number] Jul, [facility] [address] [id number] [address] [place] [id number] Jun, [facility] [address] [id number] [address] [place] [phone] May, [facility] [address] [id number] [address] [place] [phone] May, ADHD, predominantly inattent randall type F90.0 and Major depressive disorder, recurrent episode, in full remission F33.42 [facility] [address] [id number] [address] [place] [phone] Feb, Major depressive disorder, r ecurrent episode, moderate 296.32 [facility] [address] [id number] [address] [place] [id number] Feb, [facility] [address] [id number] [address] [place] [id number] Jan, [facility] [address] [facility] [id number] [address] [place] [phone] Jan, [facility] [address] [id number] [address] [place] [id number] December, [facility] [address] [id number] [address] [place] [phone] Nov, [facility] [address] [id number] [address] [place] [address] Nov, [facility] [address] [facility] [id number] [address] [place] [id number] Oct, [facility] [address] [id number] [address] [place] [id number] Oct, [facility] [address] [id number] [address] [place] [address], [place] [address] Sep, [facility] [address] [id number] [address] [place] [address], [place] [address] Sep, [facility] [address] [id number] [address] [place] [address], [place] [address] Sep, [facility] [address] [id number] [address] [place] [address], [place] [address] Sep, [facility] [address] [id number] [address] [place] [address], [place] [address] Aug, [facility] [address] [id number] [address] [place] [address], [place] [address] Aug, [facility] [address] [id number] [address] [place] [address], [place] [address] Aug, [facility] [address] [id number] [address] [place] [address], [place] [address] Aug, [facility] [address] [id number] [address] [place] [address], [place] [address] Aug, [facility] [address] [id number] [address] [place] [address], [place] [address] Aug, [facility] [address] [id number] [address] [place] [address], [place] [address] Jul, [facility] [address] [id number] [address] [place] [address], [place] [address] Jul, [facility] [address] [id number] [address] [place] [address], [place] [address] Jun, [facility] [address] [id number] [address] [place] [address], [place] [address] Jun, [facility] [address] [id number] [address] [place] [address], [place] [address] May, [facility] [address] [id number] [address] [place] [address], [place] [address] May, [facility] [address] [id number] [address] [place] [address], [place] [address] Apr, [facility] [address] [id number] [address] [place] [address], [place] [address] Apr, [facility] [address] [id number] [address] [place] [address], [place] [address] Apr, [facility] [address] [id number] [address] [place] [address], [place] [address] Mar, [facility] [address] [id number] [address] [place] [address], [place] [address] Mar, [facility] [address] [id number] [address] [place] [address], [place] [address] Mar, [facility] [address] [id number] [address] [place] [address], [place] [address] Mar, [facility] [address] [id number] [address] [place] [address], [place] [address] Feb, [facility] [address] [id number] [address] [place] [address], [place] [address] Feb, [facility] [address] [id number] [address] [place] [address], [place] [address] Feb, [facility] [address] [id number] [address] [place] [address], [place] [address] Feb, [facility] [address] [id number] [address] [place] [address], [place] [address] Feb, [facility] [address] [id number] [address] [place] [address], [place] [address] Feb, [facility] [address] [id number] [address] [place] [address], [place] [address] Jan, [facility] [address] [id number] [address] [place] [address], [place] [address] Jan, [facility] [address] [id number] [address] [place] [address], [place] [address] Jan, [facility] [address] [id number] [address] [place] [address], [place] [address] Jan, [facility] [address] [id number] [address] [place] [address], [place] [address] December, [facility] [address] [id number] [address] [place] [address], [place] [address] December, [facility] [address] [id number] [address] [place] [address], [place] [address] December, [facility] [address] [id number] [address] [place] [address], [place] [address] December, [facility] [address] [id number] [address] [place] [address], [place] [address] December, [facility] [address] [id number] [address] [place] [address], [place] [address] December, [facility] [address] [id number] [address] [place] [address], [place] [address] December, [facility] [address] [id number] [address] [place] [address], [place] [address] December, [facility] [address] [id number] [address] [place] [address], [place] [address] December, [facility] [address] [id number] [address] [place] [address], [place] [address] December, [facility] [address] [id number] [address] [place] [address], [place] [address] Nov, [facility] [address] [id number] [address] [place] [address], [place] [address] Nov, [facility] [address] [id number] [address] [place] [address], [place] [address] Oct, [facility] [address] [id number] [address] [place] [address], [place] [address] 10 Oct, 2013 [facility] [address] [id number] [address] [place] [address], [place] [address] Oct, [facility] [address] [id number] [address] [place] [address], [place] [address] Oct, [facility] [address] [id number] [address] [place] [address], [place] [address] Oct, [facility] [address] [id number] [address] [place] [address], [place] [address] Oct, [facility] [address] [id number] [address] [place] [address], [place] [address] Aug, [facility] [address] [id number] [address] [place] [address], [place] [address] Aug, [facility] [address] [id number] [address] [place] [address], [place] [address] Aug, [facility] [address] [id number] [address] [place] [address], [place] [address] Aug, [facility] [address] [id number] [address] [place] [address], [place] [address] Aug, [facility] [address] [id number] [address] [place] [address], [place] [address] Aug, [facility] [address] [id number] [address] [place] [address], [place] [address] Aug, [facility] [address] [id number] [address] [place] [address], [place] [address] Aug, [facility] [address] [id number] [address] [place] [address], [place] [address] Jul, [facility] [address] [id number] [address] [place] [address], [place] [address] Jul, [facility] [address] [id number] [address] [place] [address], [place] [address] Jun, [facility] [address] [id number] [address] [place] [address], [place] [address] Jun, [facility] [address] [id number] [address] [place] [address], [place] [address] Jun, [facility] [address] [id number] [address] [place] [address], [place] [address] Jun, [facility] [address] [id number] [address] [place] [address], [place] [address] Jun, [facility] [address] [id number] [address] [place] [address], [place] [address] Jun, [facility] [address] [id number] [address] [place] [address], [place] [address] May, [facility] [address] [id number] [address] [place] [address], [place] [address] May, [facility] [address] [id number] [address] [place] [address], [place] [address] 16 Apr, 2013 [facility] [address] [id number] [address] [place] [address], [place] [address] Apr, [facility] [address] [id number] [address] [place] [address], [place] [address] Mar, [facility] [address] [id number] [address] [place] [address], [place] [address] Mar, [facility] [address] [id number] [address] [place] [address], [place] [address] Mar, [facility] [address] [id number] [address] [place] [address], [place] [address] Feb, [facility] [address] [id number] [address] [place] [address], [place] [address] Jan, [facility] [address] [id number] [address] [place] [address], [place] [address] December, [facility] [address] [id number] [address] [place] [address] [address] December, [facility] [address] [id number] [address] [place] [address], [place] [address] December, [facility] [address] [id number] [address] [place] [address], [place] [address] December, [facility] [address] [id number] [address] [place] [address], [place] [address] December, [facility] [address] [id number] [address] [place] [address], [place] [address] December, [facility] [address] [id number] [address] [place] [address], [place] [address] Nov, [facility] [address] [id number] [address] [place] [address], [place] [address] Nov, [facility] [address] [id number] [address] [place] [address], [place] [address] Nov, [facility] [address] [id number] [address] [place] [address], [place] [address] Oct, [facility] [address] [id number] [address] [place] [address], [place] [address] Jun, [facility] [address] [id number] [address] [place] [address], [place] [address] 14 Jun, 2012 [facility] [address] [id number] [address] [place] [address], [place] [address] Jun, [facility] [address] [id number] [address] [place] [address], [place] [address] Jun, [facility] [address] [id number] [address] [place] [address], [place] [address] 18 Apr, 2012 [facility] [address] [id number] [address] [place] [address], [place] [address] Mar, [facility] [address] [id number] [address] [place] [address], [place] [address] Mar, [facility] [address] [id number] [address] [place] [address] Jan, [facility] [address] [id number] [address] [place] [address] December, [facility] [address] [id number] [address] [place] [address] Nov, [facility] [address] [id number] [address] [place] [address] Nov, [facility] [address] [id number] [address] [place] [address] Nov, [facility] [facility] [address] [id number] [address] [place] [phone] Nov, [facility] [address] [id number] [address] [place] [phone] Aug, [facility] [address] [id number] [address] [place] [phone] Aug, [facility] [address] [id number] [address] [place] [phone] Jul, [facility] [address] [id number] [address] [place] [phone] Jun, [facility] [address] [id number] [address] [place] [phone] Jun, [facility] [address] [id number] [address] [place] [phone] Apr, [facility] [address] [id number] [address] [place] [phone] Feb, IMMUNIZATIONS No Known Immunizations SOCIAL HISTORY Never Assessed REASON FOR VISIT Controlled med 11/14 PLAN OF CARE VITAL SIGNS MEDICATIONS Medication Instructions Dosage Frequency Start Date End Date Duration S dante Dexmethylphenidate HCl ER 40 MG Orally Once a day 1 capsule in the morning 24h Oct, 28 days Active Ambien 10 MG Orally Once a day 1 tablet at bedtime as needed 24h Jul, 28 days Active RESULTS No Results PROCEDURES No Known procedures INSTRUCTIONS MEDICATIONS ADMINISTERED No Known Medications MEDICAL (GENERAL) HISTORY Type Description Date Medical History Hypertension Medical History ADHD Medical History depression Medical History anxiety Surgical History section Surgical History collar bone repair
--- OUTSIDE RECORDS SUMMARY | 2020-02-11 01:32 | XMS REPORT ---
Author Author Elaine Collier Doctor Organization [facility] Address Unknown Phone Unavailable Care Team Providers Care Vision Mixer Name Role Phone Migration, Doctor Unavailable Unavailable PROBLEMS Type Condition ICD9-CM Code NXP24-EC Code Onset Dates Condition S tatus SNOMED Code Problem Major depressive disorder, recurrent episode, in full remission F33.42 Active 428317344 Problem Moderate episode of recurrent major depressive disorder F33.1 Active 308077795 Problem Intractable migraine without aura and with status migr ainosus G43.011 Active 478119000 Problem ADHD, predominantly inattentive type F90.0 Active 72485486 Problem Primary insomnia F51.01 Active 397 2004 Problem Essential hypertension I10 Active 08964934 Problem Seasonal allergies J30.2 Active 4 [id number] ALLERGIES No Information ENCOUNTERS Encounter Location Date Diagnosis [place] [id number] [place] [id number] [address] [place] [address] Jan, [place] [address] [facility] [id number] [address] [place] [address] December, Moderate episode of recurren t major depressive disorder F33.1 [facility] [address] [facility] [id number] [address] [place] [address] December, [facility] [address] [place] [id number] [address] [place] [address] December, Moderate episode of recurren t major depressive disorder F33.1 [facility] [address] [facility] [id number] [address] [place] [address] Nov, Moderate episode of recurren t major depressive disorder F33.1 and Intractable migraine without aura and with status migrainosus G43.011 [facility] [address] [facility] [id number] [address] [place] [address] Nov, [facility] [address] [facility] [id number] [address] [place] [address] Oct, Major depressive disorder, r ecurrent episode, in full remission F33.42 ; Intractable migraine without aura and with status migrainosus G43.011 ; Weight gain R63.5 ; Vision changes H53.9 and 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 [facility] [address] [facility] [id number] [address] [place] [address] Oct, Encounter for pre-employment examination Z02.1 [facility] [address] [facility] [id number] [address] [place] [address] Oct, [facility] [address] [facility] [id number] [address] [place] [address] 20 Sep, 2018 Acute non-recurrent maxillar y sinusitis J01.00 [place] [address] [place] [id number] [address] [place] [address] Sep, [place] [address] [place] [id number] [address] [place] [address] Aug, [place] [address] [place] [id number] [address] [place] [address] Jul, ADHD, predominantly inattent randall type F90.0 and Primary insomnia F51.01 [place] [address] [facility] [id number] [address] [place] [address] Jun, ADHD, predominantly inattent randall type F90.0 [place] [address] [place] [id number] [address] [place] [address] May, ADHD, predominantly inattent randall type F90.0 ; Moderate episode of recurrent major depressive disorder F33.1 and Therapeutic drug monitoring Z51.81 [place] [address] [facility] [id number] [address] [place] [address] 04 May, 2018 [place] [address] [facility] [id number] [address] [place] [address] Apr, ADHD, predominantly inattent randall type F90.0 [place] [address] [facility] [id number] [address] [place] [address] Apr, ADHD, predominantly inattent randall type F90.0 and Major depressive disorder, recurrent episode, in full remission F33.42 [facility] [address] [facility] [id number] [address] [place] [address] Mar, ADHD, predominantly inattent randall type F90.0 and Primary insomnia F51.01 [facility] [address] [place] [id number] [address] [place] [address] Mar, [place] [address] [place] [id number] [address] [place] [address] Mar, ADHD, predominantly inattent randall type F90.0 and Primary insomnia F51.01 [place] [address] [place] [id number] [address] [place] [address] Feb, ADHD, predominantly inattent randall type F90.0 and Primary insomnia F51.01 [place] [address] [place] [id number] [address] [place] [address] Jan, ADHD, predominantly inattent randall type F90.0 and Primary insomnia F51.01 [facility] [address] [facility] [id number] [address] [place] [address] December, Seasonal allergies J30.2 and Post-nasal drip R09.82 [facility] [address] [place] [id number] [address] [place] [address] December, ADHD, predominantly inattent randall type F90.0 and Primary insomnia F51.01 [facility] [address] [facility] [id number] [address] [place] [address] Nov, ADHD, predominantly inattent randall type F90.0 [facility] [address] [facility] [id number] [address] [place] [address] Oct, ADHD, predominantly inattent randall type F90.0 [facility] [address] [place] [id number] [address] [place] [address] Oct, ADHD, predominantly inattent randall type F90.0 ; Primary insomnia F51.01 and Screening, lipid Z13.220 [facility] [address] [facility] [id number] [address] [place] [address] Sep, ADHD, predominantly inattent randall type F90.0 [facility] [address] [facility] [id number] [address] [place] [address] Aug, ADHD, predominantly inattent randall type F90.0 and Primary insomnia F51.01 [facility] [address] [facility] [id number] [address] [place] [address] Jul, ADHD, predominantly inattent randall type F90.0 [facility] [address] [place] [id number] [address] [place] [address] Jul, Primary insomnia F51.01 and ADHD, predominantly inattentive type F90.0 [place] [address] [place] [id number] [address] [place] [address] Jun, ADHD, predominantly inattent randall type F90.0 [facility] [address] [place] [id number] [address] [place] [address] May, ADHD, predominantly inattent randall type F90.0 [facility] [address] [place] [id number] [address] [place] [address] Apr, ADHD, predominantly inattent randall type F90.0 [facility] [address] [facility] [id number] [address] [place] [address] Mar, ADHD, predominantly inattent randall type F90.0 ; Primary insomnia F51.01 ; Major depressive disorder, recurrent episode, in full remission F33.42 and Acne comedone L70.0 [facility] [address] [facility] [id number] [address] [place] [address] Mar, Major depressive disorder, r ecurrent episode, in full remission F33.42 and ADHD, predominantly inattentive type F90.0 [facility] [address] [place] [id number] [place] [address] Feb, ADHD, predominantly inattent randall type F90.0 [place] [address] [facility] [id number] [address] [place] [address] Feb, Primary insomnia F51.01 [facility] [address] [facility] [id number] [address] [place] [address] Jan, ADHD, predominantly inattent randall type F90.0 and Primary insomnia F51.01 [place] [address] [place] [id number] [place] [address] December, ADHD, predominantly inattent randall type F90.0 and Primary insomnia F51.01 [place] [address] [facility] [id number] [address] [place] [address] Oct, ADHD, predominantly inattent randall type F90.0 and Primary insomnia F51.01 [place] [address] [place] [id number] [place] [address] Sep, ADHD, predominantly inattent randall type F90.0 and Primary insomnia F51.01 [place] [address] [place] [id number] [place] [address] Aug, ADHD, predominantly inattent randall type F90.0 and Primary insomnia F51.01 [place] [id number] [place] [address] Jul, Major depressive disorder, r ecurrent episode, in full remission F33.42 ; ADHD, predominantly inattentive type F90.0 ; Primary insomnia F51.01 ; Acute non-recurrent maxillary sinusitis J01.00 and Screening, lipid Z13.220 [facility] [address] [facility] [id number] [address] [place] [address] Jun, Acute non-recurrent maxillar y sinusitis J01.00 [facility] [address] [place] [id number] [place] [address] Jun, ADHD, predominantly inattent randall type F90.0 [facility] [address] [id number] [address] [place] [address] May, [facility] [address] [id number] [address] [place] [address] Apr, [facility] [address] [id number] [address] [place] [address] Feb, Rash R21 and Scabies B86 [facility] [address] [id number] [address] [place] [address] Feb, ADHD, predominantly inattent randall type F90.0 and Major depressive disorder, recurrent episode, in full remission F33.42 [facility] [address] [id number] [address] [place] [address] Feb, [facility] [address] [id number] [address] [place] [address] Oct, [facility] [address] [id number] [address] [place] [address] Sep, [facility] [address] [id number] [address] [place] [address] Sep, [facility] [address] [id number] [address] [place] [address] Aug, [facility] [address] [id number] [address] [place] [address] Jul, [facility] [address] [id number] [address] [place] [address] Jun, [facility] [address] [id number] [address] [place] [address] May, [facility] [address] [id number] [address] [place] [address] May, ADHD, predominantly inattent randall type F90.0 and Major depressive disorder, recurrent episode, in full remission F33.42 [facility] [address] [id number] [address] [place] [address] Feb, Major depressive disorder, r ecurrent episode, moderate 296.32 [facility] [address] [id number] [address] [place] [address] Feb, [facility] [address] [id number] [address] [place] [address] Jan, [facility] [address] [id number] [address] [place] [address] Jan, [facility] [address] [id number] [address] [place] [address] December, [facility] [address] [id number] [address] [place] [address] Nov, [facility] [address] [id number] [address] [place] [address] Nov, [facility] [address] [id number] [address] [place] [address] Oct, [facility] [address] [id number] [address] [place] [address] Oct, [facility] [address] [id number] [address] [place] [address] Sep, [facility] [address] [id number] [address] [place] [address] Sep, [facility] [address] [id number] [address] [place] [address] Sep, [facility] [address] [id number] [address] [place] [address] Sep, [facility] [address] [id number] [address] [place] [address] Aug, [facility] [address] [id number] [address] [place] [address] Aug, [facility] [address] [id number] [address] [place] [address], [place] [address] Aug, [facility] [address] [id number] [address] [place] [address], [place] [address] Aug, [facility] [address] [id number] [address] [place] [address], [place] [address] Aug, [facility] [address] [id number] [address] [place] [address], [place] [address] Aug, [facility] [address] [id number] [address] [place] [address], [place] [address] Jul, [facility] [address] [id number] [address] [place] [address], [place] [address] Jul, [facility] [address] [id number] [address] [place] [address], [place] [address] Jun, [facility] [address] [id number] [address] [place] [address], [place] [address] Jun, [facility] [address] [id number] [address] [place] [address], [place] [address] May, [facility] [address] [id number] [address] [place] [address], [place] [address] May, [facility] [address] [id number] [address] [place] [address], [place] [address] Apr, [facility] [address] [id number] [address] [place] [address], [place] [address] Apr, [facility] [address] [id number] [address] [place] [address], [place] [address] Apr, [facility] [address] [id number] [address] [place] [address], [place] [address] Mar, [facility] [address] [id number] [address] [place] [address], [place] [address] Mar, [facility] [address] [id number] [address] [place] [address], [place] [address] Mar, [facility] [address] [id number] [facility] [place] [address] Mar, [facility] [address] [id number] [facility] [place] [address] Feb, [facility] [address] [id number] [address] [place] [address], [place] [address] Feb, [facility] [address] [id number] [address] [place] [address], [place] [address] Feb, [facility] [address] [id number] [address] [place] [address], [place] [address] Feb, [facility] [address] [id number] [address] [place] [address], [place] [address] Feb, [facility] [address] [id number] [address] [place] [address], [place] [address] Feb, [facility] [address] [id number] [address] [place] [address], [place] [address] Jan, [facility] [address] [id number] [address] [place] [address], [place] [address] Jan, [facility] [address] [id number] [address] [place] [address], [place] [address] Jan, [facility] [address] [id number] [address] [place] [address], [place] [address] Jan, [facility] [address] [id number] [address] [place] [address], [place] [address] December, [facility] [address] [id number] [address] [place] [address], [place] [address] December, [facility] [address] [id number] [address] [place] [address], [place] [address] December, [facility] [address] [id number] [address] [place] [address], [place] [address] December, [facility] [address] [id number] [address] [place] [address], [place] [address] December, [facility] [address] [id number] [address] [place] [address], [place] [address] December, [facility] [address] [id number] [address] [place] [address], [place] [address] December, [facility] [address] [id number] [address] [place] [address], [place] [address] December, [facility] [address] [id number] [address] [place] [address], [place] [address] December, [facility] [address] [id number] [address] [place] [address], [place] [address] December, [facility] [address] [id number] [address] [place] [address], [place] [address] Nov, [facility] [address] [id number] [address] [place] [address], [place] [address] Nov, [facility] [address] [id number] [address] [place] [address], [place] [address] Oct, [facility] [address] [id number] [address] [place] [address], [place] [address] Oct, [facility] [address] [id number] [address] [place] [address], [place] [address] Oct, [facility] [address] [id number] [address] [place] [address], [place] [address] Oct, [facility] [address] [id number] [address] [place] [address], [place] [address] Oct, [facility] [address] [id number] [address] [place] [address], [place] [address] Oct, [facility] [address] [id number] [address] [place] [address], [place] [address] Aug, [facility] [address] [id number] [address] [place] [address], [place] [address] Aug, [facility] [address] [id number] [address] [place] [address], [place] [address] Aug, [facility] [address] [id number] [address] [place] [address], [place] [address] Aug, [facility] [address] [id number] [address] [place] [address], [place] [address] Aug, [facility] [address] [id number] [address] [place] [address], [place] [address] Aug, [facility] [address] [id number] [address] [place] [address], [place] [address] Aug, [facility] [address] [id number] [address] [place] [address], [place] [address] Aug, [facility] [address] [id number] [address] [place] [address], [place] [address] Jul, [facility] [address] [id number] [address] [place] [address], [place] [address] Jul, [facility] [address] [id number] [address] [place] [address], [place] [address] Jun, [facility] [address] [id number] [address] [place] [address], [place] [address] Jun, [facility] [address] [id number] [address] [place] [address], [place] [address] Jun, [facility] [address] [id number] [address] [place] [address], [place] [address] Jun, [facility] [address] [id number] [address] [place] [address], [place] [address] Jun, [facility] [address] [id number] [address] [place] [address], [place] [address] Jun, [facility] [address] [id number] [address] [place] [address], [place] [address] May, [facility] [address] [id number] [address] [place] [address], [place] [address] May, [facility] [address] [id number] [address] [place] [address], [place] [address] Apr, [facility] [address] [id number] [address] [place] [address], [place] [address] Apr, [facility] [address] [id number] [address] [place] [address], [place] [address] Mar, [facility] [address] [id number] [address] [place] [address], [place] [address] Mar, [facility] [address] [id number] [address] [place] [address], [place] [address] Mar, [facility] [address] [id number] [address] [place] [address], [place] [address] Feb, [facility] [address] [id number] [address] [place] [address], [place] [address] Jan, [facility] [address] [id number] [address] [place] [address], [place] [address] December, [facility] [address] [id number] [address] [place] [address], [place] [address] December, [facility] [address] [id number] [address] [place] [address], [place] [address] December, [facility] [address] [id number] [address] [place] [address], [place] [address] December, [facility] [address] [id number] [address] [place] [address], [place] [address] December, [facility] [address] [id number] [address] [place] [address], [place] [address] December, [facility] [address] [id number] [address] [place] [address], [place] [address] Nov, [facility] [address] [id number] [address] [place] [address], [place] [address] Nov, [facility] [address] [id number] [address] [place] [address], [place] [address] 08 Nov, 2012 [facility] [address] [id number] [address] [place] [address], [place] [address] 05 Oct, 2012 [facility] [address] [id number] [address] [place] [address], [place] [address] 14 Jun, 2012 [facility] [address] [id number] [address] [place] [address], [place] [address] Jun, [facility] [address] [id number] [address] [place] [address], [place] [address] Jun, [facility] [address] [id number] [address] [place] [address], [place] [address] Jun, [facility] [address] [id number] [address] [place] [address], [place] [address] 18 Apr, 2012 [facility] [address] [id number] [address] [place] [address], [place] [address] Mar, [facility] [address] [id number] [address] [place] [address], [place] [address] Mar, [facility] [address] [id number] [address] [place] [address], [place] [address] Jan, [facility] [address] [id number] [address] [place] [address], [place] [address] December, [facility] [facility] [address] [id number] [address] [place] [address], [place] [id number] 16 Nov, 2011 [facility] [address] [id number] [address] [place] [address], [place] [id number] Nov, [facility] [address] [id number] [address] [place] [address], [place] [id number] 05 Nov, 2011 [facility] [address] [id number] [address] [place] [address], [place] [id number] Nov, [facility] [address] [id number] [address] [place] [address], [place] [id number] Aug, [facility] [address] [id number] [address] [place] [phone] Aug, [facility] [address] [facility] [id number] [address] [place] [phone] Jul, [facility] [address] [facility] [id number] [address] [place] [id number] Jun, [facility] [address] [facility] [id number] [address] [place] [phone] Jun, [facility] [address] [facility] [id number] [address] [place] [phone] Apr, [facility] [address] [facility] [id number] [address] [place] [phone] Feb, IMMUNIZATIONS No Known Immunizations SOCIAL HISTORY Never Assessed [place]AS[place] [place] VITAL SIGNS MEDICATIONS Unknown Medications RESULTS No Results PROCEDURES No Known procedures INSTRUCTIONS MEDICATIONS ADMINISTERED No Known Medications MEDICAL (GENERAL) HISTORY Type Description Date Medical History Hypertension Medical History ADHD Medical History depression Medical History anxiety Surgical History section Surgical History collar bone repair
--- OUTSIDE RECORDS SUMMARY | 2020-02-11 01:32 | XMS REPORT ---
Author Author Elaine Collier Doctor Organization [facility] Address Unknown Phone Unavailable Care Team Providers Care Tooth Polisher Name Role Phone Migration, Doctor Unavailable Unavailable PROBLEMS Type Condition ICD9-CM Code [id number] Code Onset Dates Condition S tatus SNOMED Code Problem Major depressive disorder, recurrent episode, in full remission F33.42 Active 431678035 Problem Moderate episode of recurrent major depressive disorder F33.1 Active 998349228 Problem Intractable migraine without aura and with status migr ainosus G43.011 Active 969298628 Problem ADHD, predominantly inattentive type F90.0 Active 85856326 Problem Primary insomnia F51.01 Active 397 2004 Problem Essential hypertension I10 Active 08521051 Problem Seasonal allergies J30.2 Active 4 [id number] ALLERGIES No Information ENCOUNTERS Encounter Location Date Diagnosis [place] [address] [place] [id number] [address] [place] [address] Jan, [place] [address] [address] 24 Nov, 2018 Moderate episode of recurren t major depressive disorder F33.1 and Intractable migraine without aura and with status migrainosus G43.011 [place] [address] [place] [id number] [address] [place] [address] Nov, [place] [address] [place] [id number] [address] [place] [address] Oct, Major depressive disorder, r ecurrent episode, in full remission F33.42 ; Intractable migraine without aura and with status migrainosus G43.011 ; Weight gain R63.5 ; Vision changes H53.9 and 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 Z79.899 [place] [address] [place] [id number] [address] [place] [address] 15 Oct, 2018 Encounter for pre-employment examination Z02.1 [place] [address] [id number] [address] [place] [address] Oct, [facility] [address] [id number] [address] [place] [address] Sep, Acute non-recurrent maxillar y sinusitis J01.00 [facility] [place] [address] [id number] [address] [place] [address] Sep, [facility] [place] [address] [id number] [address] [place] [address] Aug, [facility] [place] [address] [id number] [address] [place] [address] Jul, ADHD, predominantly inattent randall type F90.0 and Primary insomnia F51.01 [facility] [place] [address] [facility] [id number] [address] [place] [address] Jun, ADHD, predominantly inattent randall type F90.0 [facility] [place] [address] [facility] [id number] [address] [place] [address] May, ADHD, predominantly inattent randall type F90.0 ; Moderate episode of recurrent major depressive disorder F33.1 and Therapeutic drug monitoring Z51.81 [facility] [place] [address] [facility] [id number] [address] [place] [address] 04 May, 2018 [facility] [place] [address] [id number] [address] [place] [address] Apr, ADHD, predominantly inattent randall type F90.0 [facility] [place] [address] [id number] [address] [place] [address] 10 Apr, 2018 ADHD, predominantly inattent randall type F90.0 and Major depressive disorder, recurrent episode, in full remission F33.42 [facility] [place] [address] [facility] [id number] [address] [place] [address] Mar, ADHD, predominantly inattent randall type F90.0 and Primary insomnia F51.01 [facility] [place] [address] [facility] [id number] [address] [place] [address] Mar, [facility] [place] [address] [place] [id number] [address] [place] [address] Mar, ADHD, predominantly inattent randall type F90.0 and Primary insomnia F51.01 [facility] [place] [address] [place] [id number] [address] [place] [address] Feb, ADHD, predominantly inattent randall type F90.0 and Primary insomnia F51.01 [facility] [place] [address] [place] [id number] [place] [address] Jan, ADHD, predominantly inattent randall type F90.0 and Primary insomnia F51.01 [facility] [address] [place] [id number] [address] [place] [address] December, Seasonal allergies J30.2 and Post-nasal drip R09.82 [place] [address] [address] December, ADHD, predominantly inattent randall type F90.0 and Primary insomnia F51.01 [place] [address] [address] Nov, ADHD, predominantly inattent randall type F90.0 [place] [address] [place] [id number] [address] [place] [address] Oct, ADHD, predominantly inattent randall type F90.0 [place] [address] [place] [id number] [address] [place] [address] Oct, ADHD, predominantly inattent randall type F90.0 ; Primary insomnia F51.01 and Screening, lipid Z13.220 [place] [address] [place] [id number] [place] [address] Sep, ADHD, predominantly inattent randall type F90.0 [facility] [place] [address] [place] [id number] [address] [place] [address] Aug, ADHD, predominantly inattent randall type F90.0 and Primary insomnia F51.01 [facility] [place] [address] [id number] [address] [place] [address] Jul, ADHD, predominantly inattent randall type F90.0 [facility] [place] [address] [id number] [address] [place] [address] Jul, Primary insomnia F51.01 and ADHD, predominantly inattentive type F90.0 [facility] [place] [address] [id number] [address] [place] [address] Jun, ADHD, predominantly inattent randall type F90.0 [facility] [place] [address] [id number] [address] [place] [address] May, ADHD, predominantly inattent randall type F90.0 [facility] [place] [address] [id number] [address] [place] [address] Apr, ADHD, predominantly inattent randall type F90.0 [facility] [place] [address] [id number] [address] [place] [address] Mar, ADHD, predominantly inattent randall type F90.0 ; Primary insomnia F51.01 ; Major depressive disorder, recurrent episode, in full remission F33.42 and Acne comedone L70.0 [facility] [place] [address] [id number] [address] [place] [address] Mar, Major depressive disorder, r ecurrent episode, in full remission F33.42 and ADHD, predominantly inattentive type F90.0 [facility] [place] [address] [id number] [address] [place] [address] Feb, ADHD, predominantly inattent randall type F90.0 [facility] [place] [address] [id number] [address] [place] [address] Feb, Primary insomnia F51.01 [facility] [place] [address] [id number] [address] [place] [address] Jan, ADHD, predominantly inattent randall type F90.0 and Primary insomnia F51.01 [facility] [place] [address] [facility] [id number] [address] [place] [address] December, ADHD, predominantly inattent randall type F90.0 and Primary insomnia F51.01 [facility] [place] [address] [facility] [id number] [address] [place] [address] Oct, ADHD, predominantly inattent randall type F90.0 and Primary insomnia F51.01 [place] [address] [facility] [id number] [address] [place] [address] Sep, ADHD, predominantly inattent randall type F90.0 and Primary insomnia F51.01 [place] [address] [facility] [id number] [address] [place] [address] Aug, ADHD, predominantly inattent randall type F90.0 and Primary insomnia F51.01 [place] [address] [place] [id number] [address] [place] [address] Jul, Major depressive disorder, r ecurrent episode, in full remission F33.42 ; ADHD, predominantly inattentive type F90.0 ; Primary insomnia F51.01 ; Acute non-recurrent maxillary sinusitis J01.00 and Screening, lipid Z13.220 [facility] [place] [address] [place] [id number] [address] [place] [address] Jun, Acute non-recurrent maxillar y sinusitis J01.00 [place] [address] [facility] [id number] [address] [place] [address] Jun, ADHD, predominantly inattent randall type F90.0 [facility] [place] [address] [facility] [id number] [address] [place] [address] May, [place] [address] [place] [id number] [address] [place] [address] Apr, [facility] [address] [facility] [id number] [address] [place] [address] Feb, Rash R21 and Scabies B86 [place] [address] [id number] [address] [place] [address] Feb, ADHD, predominantly inattent randall type F90.0 and Major depressive disorder, recurrent episode, in full remission F33.42 [facility] [place] [address] [id number] [address] [place] [address] 05 Feb, 2016 [facility] [place] [address] [id number] [address] [place] [address] Oct, [facility] [place] [address] [id number] [address] [place] [address] Sep, [facility] [place] [address] [id number] [address] [place] [address] Sep, [facility] [place] [address] [id number] [address] [place] [address] Aug, [facility] [place] [address] [id number] [address] [place] [address] Jul, [facility] [place] [address] [id number] [address] [place] [address] Jun, [facility] [place] [address] [id number] [address] [place] [address] May, [facility] [place] [address] [id number] [address] [place] [address] May, ADHD, predominantly inattent randall type F90.0 and Major depressive disorder, recurrent episode, in full remission F33.42 [facility] [place] [address] [id number] [address] [place] [address] Feb, Major depressive disorder, r ecurrent episode, moderate 296.32 [facility] [place] [address] [id number] [address] [place] [address] Feb, [facility] [place] [address] [id number] [address] [place] [address] Jan, [facility] [place] [address] [id number] [address] [place] [address] Jan, [facility] [address] [id number] [address] [place] [address], [place] [address] December, [facility] [address] [id number] [address] [place] [address], [place] [address] Nov, [facility] [address] [id number] [address] [place] [address], [place] [address] Nov, [facility] [address] [id number] [address] [place] [address], [place] [address] Oct, [facility] [address] [id number] [address] [place] [address], [place] [address] Oct, [facility] [address] [id number] [address] [place] [address], [place] [address] Sep, [facility] [address] [id number] [address] [place] [address], [place] [address] Sep, [facility] [address] [id number] [address] [place] [address], [place] [address] Sep, [facility] [address] [id number] [address] [place] [address], [place] [address] Sep, [facility] [address] [id number] [address] [place] [address], [place] [address] Aug, [facility] [address] [id number] [address] [place] [address], [place] [address] Aug, [facility] [address] [id number] [address] [place] [address], [place] [address] Aug, [facility] [address] [id number] [address] [place] [address], [place] [address] Aug, [facility] [address] [id number] [address] [place] [address], [place] [address] Aug, [facility] [address] [id number] [address] [place] [address], [place] [address] Aug, [facility] [address] [id number] [address] [place] [address], [place] [address] Jul, [facility] [address] [id number] [address] [place] [address], [place] [address] Jul, [facility] [address] [id number] [address] [place] [address], [place] [address] Jun, [facility] [address] [id number] [address] [place] [address], [place] [address] Jun, [facility] [address] [id number] [address] [place] [address], [place] [address] May, [facility] [address] [id number] [address] [place] [address], [place] [address] May, [facility] [address] [id number] [address] [place] [address], [place] [address] Apr, [facility] [address] [id number] [address] [place] [address], [place] [address] Apr, [facility] [address] [id number] [address] [place] [address], [place] [address] Apr, [facility] [address] [id number] [address] [place] [address], [place] [address] Mar, [facility] [address] [id number] [address] [place] [address], [place] [address] Mar, [facility] [address] [id number] [address] [place] [address], [place] [address] Mar, [facility] [address] [id number] [address] [place] [address], [place] [address] Mar, [facility] [address] [id number] [address] [place] [address], [place] [address] Feb, [facility] [address] [id number] [address] [place] [address], [place] [address] Feb, [facility] [address] [id number] [address] [place] [address], [place] [address] Feb, [facility] [address] [id number] [facility] [place] [address] Feb, [facility] [address] [id number] [facility] [address] Feb, [facility] [address] [id number] [facility] [place] [address] Feb, [facility] [address] [id number] [address] [place] [address], [place] [address] Jan, [facility] [address] [id number] [address] [place] [address], [place] [address] Jan, [facility] [address] [id number] [address] [place] [address], [place] [address] Jan, [facility] [address] [id number] [address] [place] [address], [place] [address] Jan, [facility] [address] [id number] [address] [place] [address], [place] [address] December, [facility] [address] [id number] [address] [place] [address], [place] [address] December, [facility] [address] [id number] [address] [place] [address], [place] [address] December, [facility] [address] [id number] [address] [place] [address], [place] [address] December, [facility] [address] [id number] [address] [place] [address], [place] [address] December, [facility] [address] [id number] [address] [place] [address], [place] [address] December, [facility] [address] [id number] [address] [place] [address], [place] [address] December, [facility] [address] [id number] [address] [place] [address], [place] [address] December, [facility] [address] [id number] [address] [place] [address], [place] [address] December, [facility] [address] [id number] [address] [place] [address], [place] [address] December, [facility] [address] [id number] [address] [place] [address], [place] [address] Nov, [facility] [address] [id number] [address] [place] [address], [place] [address] Nov, [facility] [address] [id number] [address] [place] [address], [place] [address] Oct, [facility] [address] [id number] [address] [place] [address], [place] [address] Oct, [facility] [address] [id number] [address] [place] [address], [place] [address] Oct, [facility] [address] [id number] [address] [place] [address], [place] [address] Oct, [facility] [address] [id number] [address] [place] [address], [place] [address] Oct, [facility] [address] [id number] [address] [place] [address], [place] [address] Oct, [facility] [address] [id number] [address] [place] [address], [place] [address] Aug, [facility] [address] [id number] [address] [place] [address], [place] [address] Aug, [facility] [address] [id number] [address] [place] [address], [place] [address] Aug, [facility] [address] [id number] [address] [place] [address], [place] [address] Aug, [facility] [address] [id number] [address] [place] [address], [place] [address] Aug, [facility] [address] [id number] [address] [place] [address], [place] [address] Aug, [facility] [address] [id number] [address] [place] [address], [place] [address] Aug, [facility] [address] [id number] [address] [place] [address], [place] [address] Aug, [facility] [address] [id number] [address] [place] [address], [place] [address] Jul, [facility] [address] [id number] [address] [place] [address], [place] [address] Jul, [facility] [address] [id number] [address] [place] [address], [place] [address] Jun, [facility] [address] [id number] [address] [place] [address], [place] [address] Jun, [facility] [address] [id number] [address] [place] [address], [place] [address] Jun, [facility] [address] [id number] [address] [place] [address], [place] [address] Jun, [facility] [address] [id number] [address] [place] [address], [place] [address] Jun, [facility] [address] [id number] [address] [place] [address], [place] [address] Jun, [facility] [address] [id number] [address] [place] [address], [place] [address] May, [facility] [address] [id number] [address] [place] [address], [place] [address] May, [facility] [address] [id number] [address] [place] [address], [place] [address] 16 Apr, 2013 [facility] [address] [id number] [address] [place] [address], [place] [address] Apr, [facility] [address] [id number] [address] [place] [address], [place] [address] Mar, [facility] [address] [id number] [address] [place] [address], [place] [address] Mar, [facility] [address] [id number] [address] [place] [address], [place] [address] Mar, [facility] [address] [id number] [address] [place] [address], [place] [address] Feb, [facility] [address] [id number] [address] [place] [address], [place] [address] Jan, [facility] [address] [id number] [address] [place] [address], [place] [address] December, [facility] [address] [id number] [address] [place] [address], [place] [address] December, [facility] [address] [id number] [address] [place] [address], [place] [address] December, [facility] [address] [id number] [address] [place] [address], [place] [address] December, [facility] [address] [id number] [address] [place] [address], [place] [address] December, [facility] [address] [id number] [address] [place] [address], [place] [address] December, [facility] [address] [id number] [address] [place] [address], [place] [address] Nov, [facility] [address] [id number] [address] [place] [address], [place] [address] Nov, [facility] [address] [id number] [address] [place] [address], [place] [address] Nov, [facility] [address] [id number] [address] [place] [address], [place] [address] Oct, [facility] [address] [id number] [address] [place] [address], [place] [address] Jun, [facility] [address] [id number] [address] [place] [address], [place] [address] Jun, [facility] [address] [id number] [address] [place] [address], [place] [address] Jun, [facility] [address] [id number] [address] [place] [address], [place] [address] Jun, [facility] [address] [id number] [address] [place] [address], [place] [address] Apr, [facility] [address] [id number] [address] [place] [address], [place] [address] Mar, [facility] [address] [id number] [address] [place] [address], [place] [address] Mar, [facility] [address] [id number] [address] [place] [address], [place] [address] Jan, [facility] [address] [id number] [address] [place] [address], [place] [address] December, [facility] [address] [id number] [address] [place] [address], [place] [address] Nov, [facility] [address] [id number] [address] [place] [address], [place] [address] Nov, [facility] [address] [id number] [address] [place] [address], [place] [address] Nov, [facility] [address] [id number] [address] [place] [address], [place] [address] Nov, [facility] [facility] [address] [id number] [address] [place] [address], [place] [phone] Aug, [facility] [address] [id number] [address] [place] [address], [place] [id number] Aug, [facility] [address] [id number] [address] [place] [address], [place] [id number] Jul, [facility] [address] [id number] [address] [place] [address], [place] [id number] Jun, [facility] [address] [id number] [address] [place] [address], [place] [address] Jun, [facility] [place] [address] [facility] [id number] [address] [place] [id number] Apr, [facility] [place] [address] [facility] [id number] [address] [place] [id number] Feb, IMMUNIZATIONS No Known Immunizations SOCIAL HISTORY Never Assessed REASON FOR VISIT EMR-[facility] PLAN OF CARE VITAL SIGNS MEDICATIONS Unknown Medications RESULTS No Results PROCEDURES No Known procedures INSTRUCTIONS MEDICATIONS ADMINISTERED No Known Medications MEDICAL (GENERAL) HISTORY Type Description Date Medical History Hypertension Medical History ADHD Medical History depression Medical History anxiety Surgical History section Surgical History collar bone repair
--- OUTSIDE RECORDS SUMMARY | 2020-02-11 01:33 | XMS REPORT ---
Author Author Elaine GALARZA Organization [facility] Address [address] [place] [address] Care Team Providers Care Medical Clerk Name Role Phone MARI GALARZA Unavailable PROBLEMS Type Condition ICD9-CM Code [id number] Code Onset Dates Condition S tatus SNOMED Code Problem Moderate episode of recurrent major depressive disorder F33.1 Active 469738167 Problem Seasonal allergies J30.2 Active 4 25982399 Problem ADHD, predominantly inattentive type F90.0 Active 86746031 Problem Major depressive disorder, recurrent episode, in full remission F33.42 Active 409178764 Problem Essential hypertension I10 Active 11873084 Problem Primary insomnia F51.01 Active 397 2004 ALLERGIES No Information ENCOUNTERS Encounter Location Date Diagnosis [place] [address] [place] [id number] [address] [place] [address] Jul, ADHD, predominantly inattent randall type F90.0 and Primary insomnia F51.01 [place] [address] [place] [id number] [address] [place] [address] Jun, ADHD, predominantly inattent randall type F90.0 [place] [address] [place] [id number] [address] [place] [address] May, ADHD, predominantly inattent randall type F90.0 ; Moderate episode of recurrent major depressive disorder F33.1 and Therapeutic drug monitoring Z51.81 [place] [address] [place] [id number] [place] [address] May, [place] [address] [place] [id number] [place] [address] Apr, ADHD, predominantly inattent randall type F90.0 [place] [address] [place] [id number] [place] [address] Apr, ADHD, predominantly inattent randall type F90.0 and Major depressive disorder, recurrent episode, in full remission F33.42 [place] [address] [facility] [id number] [address] [place] [address] Mar, ADHD, predominantly inattent randall type F90.0 and Primary insomnia F51.01 [facility] [address] [place] [id number] [place] [address] Mar, [place] [address] [place] [id number] [place] [address] Mar, ADHD, predominantly inattent randall type F90.0 and Primary insomnia F51.01 [place] [address] [place] [id number] [place] [address] Feb, ADHD, predominantly inattent randall type F90.0 and Primary insomnia F51.01 [place] [address] [place] [id number] [place] [address] Jan, ADHD, predominantly inattent randall type F90.0 and Primary insomnia F51.01 [facility] [address] [place] [id number] [address] [place] [address] December, Seasonal allergies J30.2 and Post-nasal drip R09.82 [facility] [address] [place] [id number] [place] [address] December, ADHD, predominantly inattent randall type F90.0 and Primary insomnia F51.01 [facility] [address] [facility] [id number] [address] [place] [address] Nov, ADHD, predominantly inattent randall type F90.0 [place] [address] [facility] [id number] [address] [place] [address] Oct, ADHD, predominantly inattent randall type F90.0 [facility] [address] [facility] [id number] [address] [place] [address] Oct, ADHD, predominantly inattent randall type F90.0 ; Primary insomnia F51.01 and Screening, lipid Z13.220 [facility] [address] [id number] [address] [place] [address] Sep, ADHD, predominantly inattent randall type F90.0 [facility] [address] [id number] [address] [place] [address] Aug, ADHD, predominantly inattent randall type F90.0 and Primary insomnia F51.01 [facility] [address] [id number] [address] [place] [address] Jul, ADHD, predominantly inattent randall type F90.0 [place] [address] [id number] [address] [place] [address] Jul, Primary insomnia F51.01 and ADHD, predominantly inattentive type F90.0 [place] [address] [place] [id number] [place] [address] Jun, ADHD, predominantly inattent randall type F90.0 [facility] [address] [id number] [address] [place] [address] May, ADHD, predominantly inattent randall type F90.0 [facility] [address] [id number] [address] [place] [address] Apr, ADHD, predominantly inattent randall type F90.0 [facility] [address] [facility] [id number] [address] [place] [address] Mar, ADHD, predominantly inattent randall type F90.0 ; Primary insomnia F51.01 ; Major depressive disorder, recurrent episode, in full remission F33.42 and Acne comedone L70.0 [facility] [address] [facility] [id number] [address] [place] [address] 07 Mar, 2017 Major depressive disorder, r ecurrent episode, in full remission F33.42 and ADHD, predominantly inattentive type F90.0 [facility] [address] [facility] [id number] [address] [place] [address] Feb, ADHD, predominantly inattent randall type F90.0 [facility] [address] [id number] [address] [place] [address] Feb, Primary insomnia F51.01 [facility] [address] [id number] [address] [place] [address] Jan, ADHD, predominantly inattent randall type F90.0 and Primary insomnia F51.01 [facility] [address] [facility] [id number] [address] [place] [address] December, ADHD, predominantly inattent randall type F90.0 and Primary insomnia F51.01 [facility] [address] [facility] [id number] [address] [place] [address] Oct, ADHD, predominantly inattent randall type F90.0 and Primary insomnia F51.01 [facility] [address] [facility] [id number] [address] [place] [address] Sep, ADHD, predominantly inattent arndall type F90.0 and Primary insomnia F51.01 [facility] [address] [facility] [id number] [address] [place] [address] Aug, ADHD, predominantly inattent randall type F90.0 and Primary insomnia F51.01 [facility] [address] [facility] [id number] [address] [place] [address] Jul, Major depressive disorder, r ecurrent episode, in full remission F33.42 ; ADHD, predominantly inattentive type F90.0 ; Primary insomnia F51.01 ; Acute non-recurrent maxillary sinusitis J01.00 and Screening, lipid Z13.220 [facility] [address] [id number] [address] [place] [address] Jun, Acute non-recurrent maxillar y sinusitis J01.00 [facility] [address] [facility] [id number] [address] [place] [address] Jun, ADHD, predominantly inattent randall type F90.0 [facility] [address] [id number] [address] [place] [address] May, [facility] [address] [id number] [address] [place] [address] Apr, [facility] [address] [id number] [address] [place] [address] Feb, 2016 Rash R21 and Scabies B86 [facility] [address] [id number] [address] [place] [address] Feb, ADHD, predominantly inattent randall type F90.0 and Major depressive disorder, recurrent episode, in full remission F33.42 [facility] [address] [id number] [address] [place] [address] Feb, [facility] [address] [id number] [address] [place] [address] Oct, [facility] [address] [id number] [address] [place] [address] Sep, [facility] [address] [id number] [address] [place] [address] Sep, [facility] [address] [id number] [address] [place] [address] Aug, [facility] [address] [id number] [address] [place] [address] Jul, [facility] [address] [id number] [address] [place] [address] Jun, [facility] [address] [id number] [address] [place] [address] May, [facility] [address] [id number] [address] [place] [address] May, ADHD, predominantly inattent randall type F90.0 and Major depressive disorder, recurrent episode, in full remission F33.42 [facility] [address] [id number] [address] [place] [address] Feb, Major depressive disorder, r ecurrent episode, moderate 296.32 [facility] [address] [id number] [address] [place] [address] Feb, [facility] [address] [id number] [address] [place] [address] Jan, [facility] [address] [id number] [address] [place] [address] Jan, [facility] [address] [id number] [address] [place] [address] December, [facility] [address] [id number] [address] [place] [address] Nov, [facility] [address] [id number] [address] [place] [address] Nov, [facility] [address] [id number] [address] [place] [address] Oct, [facility] [address] [id number] [address] [place] [address] Oct, [facility] [address] [id number] [address] [place] [address] Sep, [facility] [address] [id number] [address] [place] [address] Sep, [facility] [address] [id number] [address] [place] [address] Sep, [facility] [address] [id number] [address] [place] [address] Sep, [facility] [address] [id number] [address] [place] [address] Aug, [facility] [address] [id number] [address] [place] [address] Aug, [facility] [address] [id number] [address] [place] [address] Aug, [facility] [address] [id number] [address] [place] [address], [place] [address] Aug, [facility] [address] [id number] [address] [place] [address], [place] [address] Aug, [facility] [address] [id number] [address] [place] [address], [place] [address] Aug, [facility] [address] [id number] [address] [place] [address], [place] [address] Jul, [facility] [address] [id number] [address] [place] [address], [place] [address] Jul, [facility] [address] [id number] [address] [place] [address], [place] [address] Jun, [facility] [address] [id number] [address] [place] [address], [place] [address] Jun, [facility] [address] [id number] [address] [place] [address], [place] [address] May, [facility] [address] [id number] [address] [place] [address], [place] [address] May, [facility] [address] [id number] [address] [place] [address], [place] [address] Apr, [facility] [address] [id number] [address] [place] [address], [place] [address] Apr, [facility] [address] [id number] [address] [place] [address], [place] [address] Apr, [facility] [address] [id number] [address] [place] [address], [place] [address] Mar, [facility] [address] [id number] [address] [place] [address], [place] [address] Mar, [facility] [address] [id number] [address] [place] [address], [place] [address] Mar, [facility] [address] [id number] [address] [place] [address], [place] [address] Mar, [facility] [address] [id number] [address] [place] [address], [place] [address] Feb, [facility] [address] [id number] [address] [place] [address], [place] [address] Feb, [facility] [address] [id number] [address] [place] [address], [place] [address] Feb, [facility] [address] [id number] [address] [place] [address], [place] [address] Feb, [facility] [address] [id number] [address] [place] [address], [place] [address] Feb, [facility] [address] [id number] [address] [place] [address], [place] [address] Feb, [facility] [address] [id number] [address] [place] [address], [place] [address] Jan, [facility] [address] [id number] [address] [place] [address], [place] [address] Jan, [facility] [address] [id number] [address] [place] [address], [place] [address] Jan, [facility] [address] [id number] [address] [place] [address], [place] [address] Jan, [facility] [address] [id number] [address] [place] [address], [place] [address] December, [facility] [address] [id number] [address] [place] [address], [place] [address] December, [facility] [address] [id number] [address] [place] [address], [place] [address] December, [facility] [address] [id number] [address] [place] [address], [place] [address] December, [facility] [address] [id number] [address] [place] [address], [place] [address] December, [facility] [address] [id number] [facility] [place] [address] December, [facility] [address] [id number] [facility] [place] [address] December, [facility] [address] [id number] [address] [place] [address], [place] [address] December, [facility] [address] [id number] [address] [place] [address], [place] [address] December, [facility] [address] [id number] [address] [place] [address], [place] [address] December, [facility] [address] [id number] [address] [place] [address], [place] [address] Nov, [facility] [address] [id number] [address] [place] [address], [place] [address] Nov, [facility] [address] [id number] [address] [place] [address], [place] [address] Oct, [facility] [address] [id number] [address] [place] [address], [place] [address] Oct, [facility] [address] [id number] [address] [place] [address], [place] [address] Oct, [facility] [address] [id number] [address] [place] [address], [place] [address] Oct, [facility] [address] [id number] [address] [place] [address], [place] [address] Oct, [facility] [address] [id number] [address] [place] [address], [place] [address] Oct, [facility] [address] [id number] [address] [place] [address], [place] [address] Aug, [facility] [address] [id number] [address] [place] [address], [place] [address] Aug, [facility] [address] [id number] [address] [place] [address], [place] [address] Aug, [facility] [address] [id number] [address] [place] [address], [place] [address] Aug, [facility] [address] [id number] [address] [place] [address], [place] [address] Aug, [facility] [address] [id number] [address] [place] [address], [place] [address] Aug, [facility] [address] [id number] [address] [place] [address], [place] [address] Aug, [facility] [address] [id number] [address] [place] [address], [place] [address] Aug, [facility] [address] [id number] [address] [place] [address], [place] [address] Jul, [facility] [address] [id number] [address] [place] [address], [place] [address] Jul, [facility] [address] [id number] [address] [place] [address], [place] [address] Jun, [facility] [address] [id number] [address] [place] [address], [place] [address] Jun, [facility] [address] [id number] [address] [place] [address] Jun, [facility] [address] [id number] [address] [place] [address], [place] [address] Jun, [facility] [address] [id number] [address] [place] [address] Jun, [facility] [address] [id number] [address] [place] [address], [place] [address] Jun, [facility] [address] [id number] [address] [place] [address] May, [facility] [address] [id number] [address] [place] [address], [place] [address] May, [facility] [address] [id number] [address] [place] [address], [place] [address] 16 Apr, 2013 [facility] [address] [id number] [address] [place] [address], [place] [address] Apr, [facility] [address] [id number] [address] [place] [address], [place] [address] Mar, [facility] [address] [id number] [address] [place] [address], [place] [address] Mar, [facility] [address] [id number] [address] [place] [address], [place] [address] Mar, [facility] [address] [id number] [address] [place] [address], [place] [address] Feb, [facility] [place] [address] [id number] [address] [place] [address], [place] [address] Jan, [facility] [address] [id number] [address] [place] [address], [place] [address] December, [facility] [address] [id number] [address] [place] [address], [place] [address] December, [facility] [address] [id number] [address] [place] [address], [place] [address] December, [facility] [address] [id number] [address] [place] [address], [place] [address] December, [facility] [place] [address] [id number] [address] [place] [address], [place] [address] December, [facility] [address] [id number] [address] [place] [address], [place] [address] December, [facility] [address] [id number] [address] [place] [address], [place] [address] Nov, [facility] [address] [id number] [address] [place] [address], [place] [address] Nov, [facility] [place] [address] [id number] [address] [place] [address], [place] [address] Nov, [facility] [address] [id number] [address] [place] [address], [place] [address] 05 Oct, 2012 [facility] [address] [id number] [address] [place] [address], [place] [address] 14 Jun, 2012 [facility] [address] [id number] [address] [place] [address], [place] [address] 14 Jun, 2012 [facility] [address] [id number] [address] [place] [address], [place] [address] Jun, [facility] [address] [id number] [address] [place] [address], [place] [address] Jun, [facility] [address] [id number] [address] [place] [address], [place] [address] Apr, [facility] [address] [id number] [address] [place] [address], [place] [address] Mar, [facility] [address] [id number] [address] [place] [address], [place] [address] Mar, [facility] [address] [id number] [address] [place] [address], [place] [address] Jan, [facility] [address] [id number] [address] [place] [address], [place] [address] December, [facility] [address] [id number] [address] [place] [address], [place] [address] 16 Nov, 2011 [facility] [address] [id number] [address] [place] [address], [place] [address] Nov, [facility] [address] [id number] [address] [place] [address], [place] [address] Nov, [facility] [address] [id number] [address] [place] [address], [place] [address] Nov, [facility] [address] [id number] [address] [place] [address], [place] [address] Aug, [facility] [address] [id number] [address] [place] [address], [place] [address] Aug, [facility] [address] [facility] [id number] [address] [place] [address] Jul, [facility] [address] [facility] [id number] [address] [place] [address] Jun, [facility] [address] [facility] [id number] [address] [place] [address] Jun, [facility] [address] [facility] [id number] [address] [place] [address] Apr, [facility] [address] [facility] [id number] [address] [place] [address] Feb, IMMUNIZATIONS No Known Immunizations SOCIAL HISTORY Never Assessed REASON FOR VISIT Controlled Med Refill 08/22/18 PLAN OF CARE VITAL SIGNS MEDICATIONS Medication Instructions Dosage Frequency Start Date End Date Duration S dante Dexmethylphenidate HCl ER 40 MG Orally Once a day 1 capsule in the morning 24h Jul, 28 days Active [id number] [id number] [...]
--- OUTSIDE RECORDS SUMMARY | 2020-02-11 01:33 | XMS REPORT ---
Author Author Elaine Collier Doctor Organization [facility] Address Unknown Phone Unavailable Care Team Providers Care Chief Payroll Clerk Name Role Phone Migration, Doctor Unavailable Unavailable PROBLEMS Type Condition ICD9-CM Code [id number] Code Onset Dates Condition S tatus SNOMED Code Problem Major depressive disorder, recurrent episode, in full remission F33.42 Active 198128954 Problem Moderate episode of recurrent major depressive disorder F33.1 Active 126114689 Problem Intractable migraine without aura and with status migr ainosus G43.011 Active 465870839 Problem ADHD, predominantly inattentive type F90.0 Active 12923185 Problem Primary insomnia F51.01 Active 397 2004 Problem Essential hypertension I10 Active 88771204 Problem Seasonal allergies J30.2 Active 4 [id number] ALLERGIES No Information ENCOUNTERS Encounter Location Date Diagnosis [facility] [address] [id number] [address] [place] [phone] Nov, [facility] [address] [address] Nov, [facility] [address] [id number] [address] [place] [address] Oct, Major depressive disorder, r ecurrent episode, in full remission F33.42 ; Intractable migraine without aura and with status migrainosus G43.011 ; Weight gain R63.5 ; Vision changes H53.9 and 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 [facility] [address] [id number] [address] [place] [address] Oct, Encounter for pre-employment examination Z02.1 [facility] [address] [id number] [address] [place] [address] Oct, [facility] [address] [id number] [address] [place] [address] Sep, Acute non-recurrent maxillar y sinusitis J01.00 [facility] [address] [id number] [address] [place] [address] Sep, [facility] [address] [id number] [address] [place] [address] Aug, [facility] [address] [id number] [address] [place] [address] Jul, ADHD, predominantly inattent randall type F90.0 and Primary insomnia F51.01 [facility] [address] [id number] [address] [place] [address] Jun, ADHD, predominantly inattent randall type F90.0 [place] [address] [id number] [address] [place] [address] May, ADHD, predominantly inattent randall type F90.0 ; Moderate episode of recurrent major depressive disorder F33.1 and Therapeutic drug monitoring Z51.81 [facility] [address] [id number] [address] [place] [address] May, [facility] [address] [facility] [id number] [address] [place] [address] Apr, ADHD, predominantly inattent randall type F90.0 [facility] [address] [id number] [address] [place] [phone] 10 Apr, 2018 ADHD, predominantly inattent randall type F90.0 and Major depressive disorder, recurrent episode, in full remission F33.42 [facility] [address] [id number] [address] [place] [address] Mar, ADHD, predominantly inattent randall type F90.0 and Primary insomnia F51.01 [facility] [address] [id number] [address] [place] [address] Mar, [facility] [address] [facility] [id number] [address] [place] [phone] Mar, ADHD, predominantly inattent randall type F90.0 and Primary insomnia F51.01 [facility] [address] [facility] [id number] [address] [place] [address] Feb, ADHD, predominantly inattent randall type F90.0 and Primary insomnia F51.01 [facility] [address] [facility] [id number] [address] [place] [address] Jan, ADHD, predominantly inattent randall type F90.0 and Primary insomnia F51.01 [facility] [address] [facility] [id number] [address] [place] [address] December, Seasonal allergies J30.2 and Post-nasal drip R09.82 [place] [id number] [place] [address] December, ADHD, predominantly inattent randall type F90.0 and Primary insomnia F51.01 [place] [address] [id number] [address] [place] [address] Nov, ADHD, predominantly inattent randall type F90.0 [facility] [address] [id number] [address] [place] [address] Oct, ADHD, predominantly inattent randall type F90.0 [facility] [address] [id number] [address] [place] [address] Oct, ADHD, predominantly inattent randall type F90.0 ; Primary insomnia F51.01 and Screening, lipid Z13.220 [place] [address] [id number] [address] [place] [address] Sep, ADHD, predominantly inattent randall type F90.0 [place] [address] [id number] [address] [place] [address] Aug, ADHD, predominantly inattent randall type F90.0 and Primary insomnia F51.01 [facility] [address] [id number] [address] [place] [address] Jul, ADHD, predominantly inattent randall type F90.0 [place] [address] [id number] [address] [place] [address] Jul, Primary insomnia F51.01 and ADHD, predominantly inattentive type F90.0 [facility] [address] [facility] [id number] [address] [place] [address] Jun, ADHD, predominantly inattent randall type F90.0 [facility] [address] [facility] [id number] [address] [place] [address] May, ADHD, predominantly inattent randall type F90.0 [facility] [address] [facility] [id number] [address] [place] [address] Apr, ADHD, predominantly inattent randall type F90.0 [facility] [address] [facility] [id number] [address] [place] [address] Mar, ADHD, predominantly inattent randall type F90.0 ; Primary insomnia F51.01 ; Major depressive disorder, recurrent episode, in full remission F33.42 and Acne comedone L70.0 [facility] [address] [facility] [id number] [address] [place] [id number] Mar, Major depressive disorder, r ecurrent episode, in full remission F33.42 and ADHD, predominantly inattentive type F90.0 [facility] [address] [facility] [id number] [address] [place] [address] Feb, ADHD, predominantly inattent randall type F90.0 [facility] [address] [facility] [id number] [address] [place] [address] Feb, Primary insomnia F51.01 [facility] [address] [facility] [id number] [address] [place] [address] Jan, ADHD, predominantly inattent randall type F90.0 and Primary insomnia F51.01 [facility] [address] [facility] [id number] [address] [place] [address] December, ADHD, predominantly inattent randall type F90.0 and Primary insomnia F51.01 [facility] [address] [facility] [id number] [address] [place] [address] Oct, ADHD, predominantly inattent randall type F90.0 and Primary insomnia F51.01 [facility] [address] [facility] [id number] [address] [place] [address] Sep, ADHD, predominantly inattent randall type F90.0 and Primary insomnia F51.01 [place] [address] [facility] [id number] [address] [place] [address] Aug, ADHD, predominantly inattent randall type F90.0 and Primary insomnia F51.01 [place] [address] [facility] [id number] [address] [place] [address] Jul, Major depressive disorder, r ecurrent episode, in full remission F33.42 ; ADHD, predominantly inattentive type F90.0 ; Primary insomnia F51.01 ; Acute non-recurrent maxillary sinusitis J01.00 and Screening, lipid Z13.220 [facility] [address] [id number] [address] [place] [address] Jun, Acute non-recurrent maxillar y sinusitis J01.00 [place] [address] [facility] [id number] [address] [place] [address] Jun, ADHD, predominantly inattent randall type F90.0 [place] [address] [facility] [id number] [address] [place] [address] May, [place] [address] [facility] [id number] [address] [place] [address] Apr, [facility] [address] [facility] [id number] [address] [place] [address] Feb, Rash R21 and Scabies B86 [facility] [address] [facility] [id number] [address] [place] [address] Feb, ADHD, predominantly inattent randall type F90.0 and Major depressive disorder, recurrent episode, in full remission F33.42 [place] [address] [id number] [address] [place] [address] Feb, [facility] [address] [id number] [address] [place] [address] Oct, [facility] [address] [id number] [address] [place] [address] Sep, [facility] [address] [id number] [address] [place] [phone] Sep, [facility] [address] [id number] [address] [place] [address] Aug, [facility] [address] [id number] [address] [place] [phone] Jul, [facility] [address] [facility] [id number] [address] [place] [address] Jun, [facility] [address] [facility] [id number] [address] [place] [address] May, [facility] [address] [facility] [id number] [address] [place] [address] May, ADHD, predominantly inattent randall type F90.0 and Major depressive disorder, recurrent episode, in full remission F33.42 [facility] [address] [facility] [id number] [address] [place] [address] Feb, Major depressive disorder, r ecurrent episode, moderate 296.32 [facility] [address] [id number] [address] [place] [phone] Feb, [facility] [address] [facility] [id number] [address] [place] [address] Jan, [facility] [address] [facility] [id number] [address] [place] [phone] Jan, [facility] [address] [facility] [id number] [address] [place] [phone] December, [facility] [address] [facility] [id number] [address] [place] [phone] 14 Nov, 2014 [facility] [address] [id number] [address] [place] [address], [place] [address] Nov, [facility] [address] [id number] [address] [place] [address], [place] [address] Oct, [facility] [address] [id number] [address] [place] [address], [place] [address] Oct, [facility] [address] [id number] [address] [place] [address], [place] [address] Sep, [facility] [address] [id number] [address] [place] [address], [place] [address] Sep, [facility] [address] [id number] [address] [place] [address], [place] [address] Sep, [facility] [address] [id number] [address] [place] [address], [place] [address] Sep, [facility] [address] [id number] [address] [place] [address], [place] [address] Aug, [facility] [address] [id number] [address] [place] [address], [place] [address] Aug, [facility] [address] [id number] [address] [place] [address], [place] [address] Aug, [facility] [address] [id number] [address] [place] [address], [place] [address] Aug, [facility] [address] [id number] [address] [place] [phone] Aug, [facility] [address] [id number] [address] [place] [address], [place] [address] Aug, [facility] [address] [id number] [address] [place] [address], [place] [address] Jul, [facility] [address] [id number] [address] [place] [address], [place] [address] Jul, [facility] [address] [id number] [address] [place] [address], [place] [address] Jun, [facility] [address] [id number] [address] [place] [address], [place] [address] Jun, [facility] [address] [id number] [address] [place] [address], [place] [address] May, [facility] [address] [id number] [address] [place] [address], [place] [address] May, [facility] [address] [id number] [address] [place] [address], [place] [address] Apr, [facility] [address] [id number] [address] [place] [address], [place] [address] Apr, [facility] [address] [id number] [address] [place] [address], [place] [address] Apr, [facility] [address] [id number] [address] [place] [address], [place] [address] Mar, [facility] [address] [id number] [address] [place] [address], [place] [address] Mar, [facility] [address] [id number] [address] [place] [address], [place] [address] Mar, [facility] [address] [id number] [address] [place] [address], [place] [address] Mar, [facility] [address] [id number] [address] [place] [address], [place] [address] Feb, [facility] [address] [id number] [address] [place] [address], [place] [address] Feb, [facility] [address] [id number] [address] [place] [address], [place] [address] Feb, [facility] [address] [id number] [address] [place] [address], [place] [address] Feb, [facility] [address] [id number] [address] [place] [address], [place] [address] Feb, [facility] [address] [id number] [facility] [place] [address] Feb, [facility] [address] [id number] [facility] [place] [address] Jan, [facility] [address] [id number] [address] [place] [address], [place] [address] Jan, [facility] [address] [id number] [address] [place] [address], [place] [address] Jan, [facility] [address] [id number] [address] [place] [address], [place] [address] Jan, [facility] [address] [id number] [address] [place] [address], [place] [address] December, [facility] [address] [id number] [address] [place] [address], [place] [address] December, [facility] [address] [id number] [address] [place] [address], [place] [address] December, [facility] [address] [id number] [address] [place] [address], [place] [address] December, [facility] [address] [id number] [address] [place] [address], [place] [address] December, [facility] [address] [id number] [address] [place] [address], [place] [address] December, [facility] [address] [id number] [address] [place] [address], [place] [address] December, [facility] [address] [id number] [address] [place] [address], [place] [address] December, [facility] [address] [id number] [address] [place] [address], [place] [address] December, [facility] [address] [id number] [address] [place] [address], [place] [address] December, [facility] [address] [id number] [facility] [place] [address] 16 Nov, 2013 [facility] [address] [id number] [address] [place] [address], [place] [address] Nov, [facility] [address] [id number] [address] [place] [address], [place] [address] Oct, [facility] [address] [id number] [address] [place] [address], [place] [address] Oct, [facility] [address] [id number] [address] [place] [address], [place] [address] Oct, [facility] [address] [id number] [address] [place] [address], [place] [address] Oct, [facility] [address] [id number] [address] [place] [address], [place] [address] Oct, [facility] [address] [id number] [address] [place] [address], [place] [address] Oct, [facility] [address] [id number] [address] [place] [address], [place] [address] Aug, [facility] [address] [id number] [address] [place] [address], [place] [address] Aug, [facility] [address] [id number] [address] [place] [address], [place] [address] Aug, [facility] [address] [id number] [address] [place] [address], [place] [address] Aug, [facility] [address] [id number] [address] [place] [address], [place] [address] Aug, [facility] [address] [id number] [address] [place] [address], [place] [address] Aug, [facility] [address] [id number] [address] [place] [address], [place] [address] Aug, [facility] [address] [id number] [address] [place] [address], [place] [address] Aug, [facility] [address] [id number] [address] [place] [address], [place] [address] Jul, [facility] [address] [id number] [address] [place] [address], [place] [address] Jul, [facility] [address] [id number] [address] [place] [address], [place] [address] Jun, [facility] [address] [id number] [address] [place] [address], [place] [address] Jun, [facility] [address] [id number] [address] [place] [address], [place] [address] Jun, [facility] [address] [id number] [address] [place] [address], [place] [address] Jun, [facility] [address] [id number] [address] [place] [address], [place] [address] Jun, [facility] [address] [id number] [address] [place] [address], [place] [address] Jun, [facility] [address] [id number] [address] [place] [address], [place] [address] May, [facility] [address] [id number] [address] [place] [address], [place] [address] May, [facility] [address] [id number] [address] [place] [address], [place] [address] Apr, [facility] [address] [id number] [address] [place] [address], [place] [address] Apr, [facility] [address] [id number] [address] [place] [address], [place] [address] Mar, [facility] [address] [id number] [address] [place] [address], [place] [address] Mar, [facility] [address] [id number] [address] [place] [address], [place] [address] Mar, [facility] [address] [id number] [address] [place] [address], [place] [address] Feb, [facility] [address] [id number] [address] [place] [address], [place] [address] Jan, [facility] [address] [id number] [address] [place] [address], [place] [address] December, [facility] [address] [id number] [address] [place] [address], [place] [address] December, [facility] [address] [id number] [address] [place] [address], [place] [address] December, [facility] [address] [id number] [address] [place] [address], [place] [address] December, [facility] [address] [id number] [address] [place] [address], [place] [address] December, [facility] [address] [id number] [address] [place] [address], [place] [address] December, [facility] [address] [id number] [address] [place] [address], [place] [address] Nov, [facility] [address] [id number] [address] [place] [address], [place] [address] Nov, [facility] [address] [id number] [address] [place] [address], [place] [address] Nov, [facility] [address] [id number] [address] [place] [address], [place] [address] Oct, [facility] [address] [id number] [address] [place] [address], [place] [address] Jun, [facility] [address] [id number] [address] [place] [address], [place] [address] Jun, [facility] [address] [id number] [address] [place] [address], [place] [address] Jun, [facility] [address] [id number] [address] [place] [address], [place] [address] Jun, [facility] [address] [id number] [address] [place] [address], [place] [address] 18 Apr, 2012 [facility] [address] [id number] [address] [place] [address], [place] [address] Mar, [facility] [address] [id number] [address] [place] [address], [place] [address] Mar, [facility] [address] [id number] [address] [place] [address], [place] [address] Jan, [facility] [address] [id number] [address] [place] [address], [place] [address] December, [facility] [address] [id number] [address] [place] [address], [place] [address] Nov, [facility] [address] [id number] [address] [place] [address], [place] [address] Nov, [facility] [address] [id number] [address] [place] [address], [place] [address] Nov, [facility] [address] [id number] [address] [place] [address], [place] [address] Nov, [facility] [address] [id number] [address] [place] [address], [place] [address] Aug, [facility] [address] [id number] [address] [place] [address], [place] [address] Aug, [facility] [address] [id number] [address] [place] [address], [place] [address] Jul, [facility] [facility] [address] [id number] [address] [place] [address], [place] [address] Jun, [facility] [address] [id number] [address] [place] [address], [place] [address] Jun, [facility] [address] [id number] [address] [place] [address], [place] [phone] 14 Apr, 2011 [facility] [address] [id number] [address] [place] [address], [place] [phone] Feb, IMMUNIZATIONS No Known Immunizations SOCIAL HISTORY Never Assessed REASON FOR VISIT [facility] VITAL SIGNS MEDICATIONS Unknown Medications RESULTS No Results PROCEDURES No Known procedures INSTRUCTIONS MEDICATIONS ADMINISTERED No Known Medications MEDICAL (GENERAL) HISTORY Type Description Date Medical History Hypertension Medical History ADHD Medical History depression Medical History anxiety Surgical History section Surgical History collar bone repair
--- OUTSIDE RECORDS SUMMARY | 2020-02-11 01:33 | XMS REPORT ---
Author Author Elaine GALARZA Organization [facility] Address [address] [place] [address] Care Team Providers Care Conveyor Attendant Name Role Phone MARI GALARZA Unavailable PROBLEMS Type Condition ICD9-CM Code QNU97-NP Code Onset Dates Condition S tatus SNOMED Code Problem Moderate episode of recurrent major depressive disorder F33.1 Active 673791642 Problem Seasonal allergies J30.2 Active 4 51394522 Problem ADHD, predominantly inattentive type F90.0 Active 68124981 Problem Major depressive disorder, recurrent episode, in full remission F33.42 Active 909910490 Problem Essential hypertension I10 Active 74298160 Problem Primary insomnia F51.01 Active 397 2004 ALLERGIES No Information ENCOUNTERS Encounter Location Date Diagnosis [id number] [place] [facility] [place] [id number] [address] [place] [address] Jun, [place] [address] [address] [facility] [place] [id number] [address] [place] [address] Jun, ADHD, predominantly inattent randall type F90.0 [place] [address] [address] [facility] [place] [id number] [address] [place] [address] May, ADHD, predominantly inattent randall type F90.0 ; Moderate episode of recurrent major depressive disorder F33.1 and Therapeutic drug monitoring Z51.81 [facility] [address] [facility] [place] [id number] [address] [place] [address] May, [place] [address] [address] [facility] [place] [id number] [address] [place] [address] Apr, ADHD, predominantly inattent randall type F90.0 [place] [address] [address] [facility] [place] [id number] [address] [place] [address] Apr, ADHD, predominantly inattent randall type F90.0 and Major depressive disorder, recurrent episode, in full remission F33.42 [facility] [address] [facility] [place] [id number] [address] [place] [address] Mar, ADHD, predominantly inattent randall type F90.0 and Primary insomnia F51.01 [facility] [address] [place] [id number] [address] [place] [address] Mar, [place] [address] [address] [place] [id number] [address] [place] [address] Mar, ADHD, predominantly inattent randall type F90.0 and Primary insomnia F51.01 [place] [address] [address] [place] [id number] [place] [address] Feb, ADHD, predominantly inattent randall type F90.0 and Primary insomnia F51.01 [place] [address] [address] [place] [id number] [address] [place] [address] Jan, ADHD, predominantly inattent randall type F90.0 and Primary insomnia F51.01 [facility] [address] [facility] [place] [id number] [address] [place] [address] December, Seasonal allergies J30.2 and Post-nasal drip R09.82 [facility] [address] [facility] [place] [id number] [address] [place] [address] December, ADHD, predominantly inattent randall type F90.0 and Primary insomnia F51.01 [facility] [address] [place] [id number] [address] [place] [address] Nov, ADHD, predominantly inattent randall type F90.0 [place] [address] [address] [facility] [place] [id number] [address] [place] [address] Oct, ADHD, predominantly inattent randall type F90.0 [facility] [address] [facility] [place] [id number] [address] [place] [address] Oct, ADHD, predominantly inattent randall type F90.0 ; Primary insomnia F51.01 and Screening, lipid Z13.220 [facility] [address] [id number] [address] [place] [address] Sep, ADHD, predominantly inattent randall type F90.0 [facility] [address] [id number] [address] [place] [address] Aug, ADHD, predominantly inattent randall type F90.0 and Primary insomnia F51.01 [facility] [address] [id number] [address] [place] [address] Jul, ADHD, predominantly inattent randall type F90.0 [facility] [address] [id number] [address] [place] [address] Jul, Primary insomnia F51.01 and ADHD, predominantly inattentive type F90.0 [facility] [address] [facility] [place] [id number] [address] [place] [address] Jun, ADHD, predominantly inattent randall type F90.0 [facility] [address] [facility] [place] [id number] [address] [place] [address] May, ADHD, predominantly inattent randall type F90.0 [facility] [address] [facility] [place] [id number] [address] [place] [address] Apr, ADHD, predominantly inattent randall type F90.0 [facility] [address] [id number] [address] [place] [address] Mar, ADHD, predominantly inattent randall type F90.0 ; Primary insomnia F51.01 ; Major depressive disorder, recurrent episode, in full remission F33.42 [address]0 [facility] [address] [facility] [place] [id number] [address] [place] [address] Mar, Major depressive disorder, r ecurrent episode, in full remission F33.42 and ADHD, predominantly inattentive type F90.0 [facility] [address] [id number] [address] [place] [address] Feb, ADHD, predominantly inattent randall type F90.0 [facility] [address] [id number] [address] [place] [address] Feb, Primary insomnia F51.01 [facility] [address] [id number] [address] [place] [address] Jan, ADHD, predominantly inattent randall type F90.0 and Primary insomnia F51.01 [facility] [address] [facility] [place] [id number] [address] [place] [address] December, ADHD, predominantly inattent randall type F90.0 and Primary insomnia F51.01 [facility] [address] [id number] [address] [place] [address] Oct, ADHD, predominantly inattent randall type F90.0 and Primary insomnia F51.01 [facility] [address] [facility] [place] [id number] [address] [place] [address] Sep, ADHD, predominantly inattent randall type F90.0 and Primary insomnia F51.01 [facility] [address] [facility] [place] [id number] [address] [place] [address] Aug, ADHD, predominantly inattent randall type F90.0 and Primary insomnia F51.01 [facility] [address] [facility] [place] [id number] [address] [place] [address] Jul, Major depressive disorder, r ecurrent episode, in full remission F33.42 ; ADHD, predominantly inattentive type F90.0 ; Primary insomnia F51.01 ; Acute non-recurrent maxillary sinusitis J01.00 and Screening, lipid Z13.220 [facility] [address] [id number] [address] [place] [address] Jun, Acute non-recurrent maxillar y sinusitis J01.00 [facility] [address] [facility] [place] [id number] [address] [place] [address] Jun, ADHD, predominantly inattent randall type F90.0 [facility] [address] [facility] [place] [id number] [address] [place] [address] May, [facility] [address] [id number] [address] [place] [address] Apr, [facility] [address] [id number] [address] [place] [address] Feb, 2016 Rash R21 [address]86 [facility] [address] [id number] [address] [place] [address] Feb, ADHD, predominantly inattent randall type F90.0 and Major depressive disorder, recurrent episode, in full remission F33.42 [facility] [address] [id number] [address] [place] [address] Feb, [facility] [address] [id number] [address] [place] [address] Oct, [facility] [address] [id number] [address] [place] [address] Sep, [facility] [address] [id number] [address] [place] [address] Sep, [facility] [address] [id number] [address] [place] [address] Aug, [facility] [address] [id number] [address] [place] [address] Jul, [facility] [address] [id number] [address] [place] [address] Jun, [facility] [address] [id number] [address] [place] [address] May, [facility] [address] [id number] [address] [place] [address] May, ADHD, predominantly inattent randall type F90.0 and Major depressive disorder, recurrent episode, in full remission F33.42 [facility] [address] [id number] [address] [place] [address] Feb, Major depressive disorder, r ecurrent episode, moderate 296.32 [facility] [address] [id number] [address] [place] [address], [place] [address] Feb, [facility] [address] [id number] [address] [place] [address], [place] [address] Jan, [facility] [address] [id number] [address] [place] [address], [place] [address] Jan, [facility] [address] [id number] [address] [place] [address], [place] [address] December, [facility] [address] [id number] [address] [place] [address], [place] [address] Nov, [facility] [address] [id number] [address] [place] [address], [place] [address] Nov, [facility] [address] [id number] [address] [place] [address], [place] [address] Oct, [facility] [address] [id number] [address] [place] [address], [place] [address] Oct, [facility] [address] [id number] [address] [place] [address], [place] [address] Sep, [facility] [address] [id number] [address] [place] [address] Sep, [facility] [address] [id number] [address] [place] [address], [place] [address] Sep, [facility] [address] [id number] [address] [place] [address] Sep, [facility] [address] [id number] [address] [place] [address], [place] [address] Aug, [facility] [address] [id number] [address] [place] [address] Aug, [facility] [address] [id number] [address] [place] [address] Aug, [facility] [address] [id number] [address] [place] [address] Aug, [facility] [address] [id number] [address] [place] [address], [place] [address] Aug, [facility] [address] [id number] [address] [place] [address], [place] [address] Aug, [facility] [address] [id number] [address] [place] [address], [place] [address] Jul, [facility] [address] [id number] [address] [place] [address], [place] [address] Jul, [facility] [address] [id number] [address] [place] [address], [place] [address] Jun, [facility] [address] [id number] [address] [place] [address], [place] [address] Jun, [facility] [address] [id number] [address] [place] [address], [place] [address] May, [facility] [address] [id number] [address] [place] [address], [place] [address] May, [facility] [address] [id number] [address] [place] [address], [place] [address] Apr, [facility] [address] [id number] [address] [place] [address], [place] [address] Apr, [facility] [address] [id number] [address] [place] [address], [place] [address] Apr, [facility] [address] [id number] [address] [place] [address], [place] [address] Mar, [facility] [address] [id number] [address] [place] [address], [place] [address] Mar, [facility] [address] [id number] [address] [place] [address], [place] [address] Mar, [facility] [address] [id number] [address] [place] [address], [place] [address] Mar, [facility] [address] [id number] [facility] [place] [address] Feb, [facility] [address] [id number] [facility] [place] [address] Feb, [facility] [address] [id number] [facility] [place] [address] Feb, [facility] [address] [id number] [facility] [place] [address] Feb, [facility] [address] [id number] [facility] [place] [address] Feb, [facility] [address] [id number] [facility] [place] [address] Feb, [facility] [address] [id number] [address] [place] [address], [place] [address] Jan, [facility] [address] [id number] [address] [place] [address], [place] [address] Jan, [facility] [address] [id number] [address] [place] [address], [place] [address] Jan, [facility] [address] [id number] [address] [place] [address], [place] [address] Jan, [facility] [address] [id number] [address] [place] [address], [place] [address] December, [facility] [address] [id number] [address] [place] [address], [place] [address] December, [facility] [address] [id number] [address] [place] [address], [place] [address] December, [facility] [address] [id number] [address] [place] [address], [place] [address] December, [facility] [address] [id number] [address] [place] [address], [place] [address] December, [facility] [address] [id number] [address] [place] [address], [place] [address] December, [facility] [address] [id number] [facility] [place] [address] December, [facility] [address] [id number] [facility] [place] [address] December, [facility] [address] [id number] [facility] [place] [address] December, [facility] [address] [id number] [address] [place] [address], [place] [address] December, [facility] [address] [id number] [facility] [place] [address] Nov, [facility] [address] [id number] [address] [place] [address], [place] [address] Nov, [facility] [address] [id number] [address] [place] [address], [place] [address] Oct, [facility] [address] [id number] [address] [place] [address], [place] [address] Oct, [facility] [address] [id number] [address] [place] [address], [place] [address] Oct, [facility] [address] [id number] [address] [place] [address], [place] [address] Oct, [facility] [address] [id number] [address] [place] [address], [place] [address] Oct, [facility] [address] [id number] [address] [place] [address], [place] [address] Oct, [facility] [address] [id number] [address] [place] [address], [place] [address] Aug, [facility] [address] [id number] [address] [place] [address], [place] [address] Aug, [facility] [address] [id number] [address] [place] [address], [place] [address] Aug, [facility] [address] [id number] [address] [place] [address], [place] [address] Aug, [facility] [address] [id number] [address] [place] [address], [place] [address] Aug, [facility] [address] [id number] [address] [place] [address], [place] [address] Aug, [facility] [address] [id number] [address] [place] [address], [place] [address] Aug, [facility] [address] [id number] [address] [place] [address], [place] [address] Aug, [facility] [address] [id number] [address] [place] [address], [place] [address] Jul, [facility] [address] [id number] [address] [place] [address], [place] [address] Jul, [facility] [address] [id number] [address] [place] [address], [place] [address] Jun, [facility] [address] [id number] [address] [place] [address], [place] [address] Jun, [facility] [address] [id number] [address] [place] [address], [place] [address] Jun, [facility] [address] [id number] [address] [place] [address], [place] [address] Jun, [facility] [address] [id number] [address] [place] [address], [place] [address] Jun, [facility] [address] [id number] [address] [place] [address], [place] [address] Jun, [facility] [address] [id number] [address] [place] [address], [place] [address] May, [facility] [address] [id number] [address] [place] [address], [place] [address] May, [facility] [address] [id number] [address] [place] [id number] 16 Apr, 2013 [facility] [address] [id number] [address] [place] [address], [place] [address] Apr, [facility] [address] [id number] [address] [place] [address], [place] [address] Mar, [facility] [address] [id number] [address] [place] [address], [place] [address] Mar, [facility] [address] [id number] [address] [place] [address], [place] [address] Mar, [facility] [address] [id number] [address] [place] [address], [place] [address] Feb, [facility] [address] [id number] [address] [place] [address], [place] [address] Jan, [facility] [address] [id number] [address] [place] [address], [place] [address] December, [facility] [address] [id number] [address] [place] [address], [place] [address] December, [facility] [address] [id number] [address] [place] [address], [place] [address] December, [facility] [address] [id number] [address] [place] [address], [place] [address] December, [facility] [address] [id number] [address] [place] [address], [place] [address] December, [facility] [address] [id number] [address] [place] [address], [place] [address] December, [facility] [address] [id number] [address] [place] [address], [place] [address] Nov, [facility] [address] [id number] [address] [place] [address], [place] [address] Nov, [facility] [address] [id number] [address] [place] [address], [place] [id number] 08 Nov, 2012 [facility] [address] [id number] [address] [place] [address], [place] [id number] 05 Oct, 2012 [facility] [address] [id number] [address] [place] [address], [place] [id number] 14 Jun, 2012 [facility] [address] [id number] [address] [place] [address], [place] [id number] 14 Jun, 2012 [facility] [address] [id number] [address] [place] [address], [place] [address] Jun, [facility] [address] [id number] [address] [place] [address], [place] [address] Jun, [facility] [address] [id number] [address] [place] [address], [place] [address] Apr, [facility] [address] [id number] [address] [place] [address], [place] [address] Mar, [facility] [address] [id number] [address] [place] [address], [place] [id number] Mar, [facility] [address] [id number] [address] [place] [address], [place] [id number] Jan, [facility] [address] [id number] [address] [place] [address], [place] [address] December, [facility] [address] [id number] [address] [place] [address], [place] [address] Nov, [facility] [address] [id number] [address] [place] [address], [place] [address] Nov, [facility] [address] [id number] [address] [place] [address], [place] [address] Nov, [facility] [address] [id number] [address] [place] [address], [place] [address] Nov, [facility] [address] [id number] [address] [place] [address], [place] [address] Aug, [facility] [address] [id number] [address] [place] [address], [place] [address] Aug, [facility] [address] [id number] [address] [place] [id number] Jul, [facility] [address] [facility] [place] [id number] [address] [place] [id number] Jun, [facility] [address] [facility] [place] [id number] [address] [place] [id number] Jun, [facility] [address] [facility] [place] [id number] [address] [place] [id number] Apr, [facility] [address] [facility] [place] [id number] [address] [place] [id number] Feb, IMMUNIZATIONS No Known Immunizations SOCIAL HISTORY Never Assessed REASON FOR VISIT Controlled Med Refill 07/25 PLAN OF CARE VITAL SIGNS MEDICATIONS Medication Instructions Dosage Frequency Start Date End Date Duration S dante Dexmethylphenidate HCl ER 40 MG Orally Once a day 1 capsule in the morning 24h Jun, 28 days Active RESULTS No Results PROCEDURES No Known procedures INSTRUCTIONS MEDICATIONS ADMINISTERED No Known Medications MEDICAL (GENERAL) HISTORY Type Description Date Medical History Hypertension Medical History ADHD Medical History depression Medical History anxiety Surgical History section Surgical History collar bone repair
--- OUTSIDE RECORDS SUMMARY | 2020-02-11 01:33 | XMS REPORT ---
Author Author Elaine Collier Doctor Organization [facility] Address Unknown Phone Unavailable Care Team Providers Care Environmental Health Manager Name Role Phone Migration, Doctor Unavailable Unavailable PROBLEMS Type Condition ICD9-CM Code [id number] Code Onset Dates Condition S tatus SNOMED Code Problem Major depressive disorder, recurrent episode, in full remission F33.42 Active 059482272 Problem Moderate episode of recurrent major depressive disorder F33.1 Active 461388100 Problem Intractable migraine without aura and with status migr ainosus G43.011 Active 368632929 Problem ADHD, predominantly inattentive type F90.0 Active 64945806 Problem Primary insomnia F51.01 Active 397 2004 Problem Essential hypertension I10 Active 58540805 Problem Seasonal allergies J30.2 Active 4 [id number] ALLERGIES No Information ENCOUNTERS Encounter Location Date Diagnosis [facility] [address] [id number] [address] [place] [address] Nov, [facility] [address] [address] Nov, [facility] [address] [id number] [address] [place] [address] Oct, Major depressive disorder, r ecurrent episode, in full remission F33.42 ; Intractable migraine without aura and with status migrainosus G43.011 ; Weight gain R63.5 ; Vision changes H53.9 and 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 [facility] [address] [id number] [address] [place] [address] Oct, Encounter for pre-employment examination Z02.1 [facility] [address] [id number] [address] [place] [address] Oct, [facility] [address] [id number] [address] [place] [address] Sep, Acute non-recurrent maxillar y sinusitis J01.00 [facility] [address] [id number] [address] [place] [address] Sep, [facility] [address] [id number] [address] [place] [address] Aug, [facility] [address] [id number] [address] [place] [address] Jul, ADHD, predominantly inattent randall type F90.0 and Primary insomnia F51.01 [facility] [address] [id number] [address] [place] [address] Jun, ADHD, predominantly inattent randall type F90.0 [place] [address] [id number] [address] [place] [address] May, ADHD, predominantly inattent randall type F90.0 ; Moderate episode of recurrent major depressive disorder F33.1 and Therapeutic drug monitoring Z51.81 [facility] [address] [id number] [address] [place] [address] May, [facility] [address] [facility] [id number] [address] [place] [address] Apr, ADHD, predominantly inattent randall type F90.0 [facility] [address] [id number] [address] [place] [address] 10 Apr, 2018 ADHD, predominantly inattent randall type F90.0 and Major depressive disorder, recurrent episode, in full remission F33.42 [facility] [address] [id number] [address] [place] [address] Mar, ADHD, predominantly inattent randall type F90.0 and Primary insomnia F51.01 [facility] [address] [id number] [address] [place] [address] Mar, [facility] [address] [facility] [id number] [address] [place] [address] Mar, ADHD, predominantly inattent randall type F90.0 and Primary insomnia F51.01 [facility] [address] [facility] [id number] [address] [place] [address] Feb, ADHD, predominantly inattent randall type F90.0 and Primary insomnia F51.01 [facility] [address] [facility] [id number] [address] [place] [address] Jan, ADHD, predominantly inattent randall type F90.0 and Primary insomnia F51.01 [facility] [address] [facility] [id number] [address] [place] [address] December, Seasonal allergies J30.2 and Post-nasal drip R09.82 [place] [id number] [place] [address] December, ADHD, predominantly inattent randall type F90.0 and Primary insomnia F51.01 [place] [address] [id number] [address] [place] [address] Nov, ADHD, predominantly inattent randall type F90.0 [facility] [address] [id number] [address] [place] [id number] Oct, ADHD, predominantly inattent randall type F90.0 [facility] [address] [id number] [address] [place] [address] Oct, ADHD, predominantly inattent randall type F90.0 ; Primary insomnia F51.01 and Screening, lipid Z13.220 [place] [address] [id number] [address] [place] [address] Sep, ADHD, predominantly inattent randall type F90.0 [place] [address] [id number] [address] [place] [address] Aug, ADHD, predominantly inattent randall type F90.0 and Primary insomnia F51.01 [facility] [address] [id number] [address] [place] [address] Jul, ADHD, predominantly inattent randall type F90.0 [place] [address] [id number] [address] [place] [address] Jul, Primary insomnia F51.01 and ADHD, predominantly inattentive type F90.0 [facility] [address] [facility] [id number] [address] [place] [address] Jun, ADHD, predominantly inattent randall type F90.0 [facility] [address] [facility] [id number] [address] [place] [address] May, ADHD, predominantly inattent randall type F90.0 [facility] [address] [facility] [id number] [address] [place] [address] Apr, ADHD, predominantly inattent randall type F90.0 [facility] [address] [facility] [id number] [address] [place] [address] Mar, ADHD, predominantly inattent randall type F90.0 ; Primary insomnia F51.01 ; Major depressive disorder, recurrent episode, in full remission F33.42 and Acne comedone L70.0 [facility] [address] [facility] [id number] [address] [place] [address] Mar, Major depressive disorder, r ecurrent episode, in full remission F33.42 and ADHD, predominantly inattentive type F90.0 [facility] [address] [facility] [id number] [address] [place] [address] Feb, ADHD, predominantly inattent ranadll type F90.0 [facility] [address] [facility] [id number] [address] [place] [address] Feb, Primary insomnia F51.01 [facility] [address] [facility] [id number] [address] [place] [address] Jan, ADHD, predominantly inattent randall type F90.0 and Primary insomnia F51.01 [facility] [address] [facility] [id number] [address] [place] [address] December, ADHD, predominantly inattent randall type F90.0 and Primary insomnia F51.01 [facility] [address] [facility] [id number] [address] [place] [address] Oct, ADHD, predominantly inattent randall type F90.0 and Primary insomnia F51.01 [facility] [address] [facility] [id number] [address] [place] [address] Sep, ADHD, predominantly inattent randall type F90.0 and Primary insomnia F51.01 [place] [address] [facility] [id number] [address] [place] [address] Aug, ADHD, predominantly inattent randall type F90.0 and Primary insomnia F51.01 [place] [address] [facility] [id number] [address] [place] [address] Jul, Major depressive disorder, r ecurrent episode, in full remission F33.42 ; ADHD, predominantly inattentive type F90.0 ; Primary insomnia F51.01 ; Acute non-recurrent maxillary sinusitis J01.00 and Screening, lipid Z13.220 [facility] [address] [id number] [address] [place] [address] Jun, Acute non-recurrent maxillar y sinusitis J01.00 [place] [address] [facility] [id number] [address] [place] [address] Jun, ADHD, predominantly inattent randall type F90.0 [place] [address] [facility] [id number] [address] [place] [address] May, [place] [address] [facility] [id number] [address] [place] [id number] Apr, [facility] [address] [facility] [id number] [address] [place] [address] Feb, Rash R21 and Scabies B86 [facility] [address] [facility] [id number] [address] [place] [address] Feb, ADHD, predominantly inattent randall type F90.0 and Major depressive disorder, recurrent episode, in full remission F33.42 [place] [address] [id number] [address] [place] [address] Feb, [facility] [address] [id number] [address] [place] [address] Oct, [facility] [address] [id number] [address] [place] [address] Sep, [facility] [address] [id number] [address] [place] [phone] Sep, [facility] [address] [id number] [address] [place] [address] Aug, [facility] [address] [id number] [address] [place] [address] Jul, [facility] [address] [facility] [id number] [address] [place] [address] Jun, [facility] [address] [facility] [id number] [address] [place] [address] May, [facility] [address] [facility] [id number] [address] [place] [address] May, ADHD, predominantly inattent randall type F90.0 and Major depressive disorder, recurrent episode, in full remission F33.42 [facility] [address] [facility] [id number] [address] [place] [address] Feb, Major depressive disorder, r ecurrent episode, moderate 296.32 [facility] [address] [id number] [address] [place] [address] Feb, [facility] [address] [facility] [id number] [address] [place] [address] Jan, [facility] [address] [facility] [id number] [address] [place] [address] Jan, [facility] [address] [facility] [id number] [address] [place] [address] December, [facility] [address] [facility] [id number] [address] [place] [address] 14 Nov, 2014 [facility] [address] [id number] [address] [place] [address], [place] [address] Nov, [facility] [address] [id number] [address] [place] [address], [place] [address] Oct, [facility] [address] [id number] [address] [place] [address], [place] [address] Oct, [facility] [address] [id number] [address] [place] [address], [place] [address] Sep, [facility] [address] [id number] [address] [place] [address], [place] [address] Sep, [facility] [address] [id number] [address] [place] [address], [place] [address] Sep, [facility] [address] [id number] [address] [place] [address], [place] [address] Sep, [facility] [address] [id number] [address] [place] [address], [place] [address] Aug, [facility] [address] [id number] [address] [place] [address], [place] [address] Aug, [facility] [address] [id number] [address] [place] [address], [place] [address] Aug, [facility] [address] [id number] [address] [place] [address], [place] [address] Aug, [facility] [address] [id number] [address] [place] [address] Aug, [facility] [address] [id number] [address] [place] [address], [place] [address] Aug, [facility] [address] [id number] [address] [place] [address], [place] [address] Jul, [facility] [address] [id number] [address] [place] [address], [place] [address] Jul, [facility] [address] [id number] [address] [place] [address], [place] [address] Jun, [facility] [address] [id number] [address] [place] [address], [place] [address] Jun, [facility] [address] [id number] [address] [place] [address], [place] [address] May, [facility] [address] [id number] [address] [place] [address], [place] [address] May, [facility] [address] [id number] [address] [place] [address], [place] [address] Apr, [facility] [address] [id number] [address] [place] [address], [place] [address] Apr, [facility] [address] [id number] [address] [place] [address], [place] [address] Apr, [facility] [address] [id number] [address] [place] [address], [place] [address] Mar, [facility] [address] [id number] [address] [place] [address], [place] [address] Mar, [facility] [address] [id number] [address] [place] [address], [place] [address] Mar, [facility] [address] [id number] [address] [place] [address], [place] [address] Mar, [facility] [address] [id number] [address] [place] [address], [place] [address] Feb, [facility] [address] [id number] [address] [place] [address], [place] [address] Feb, [facility] [address] [id number] [address] [place] [address], [place] [address] Feb, [facility] [address] [id number] [address] [place] [address], [place] [address] Feb, [facility] [address] [id number] [address] [place] [address], [place] [address] Feb, [facility] [address] [id number] [facility] [place] [address] Feb, [facility] [address] [id number] [facility] [place] [address] Jan, [facility] [address] [id number] [address] [place] [address], [place] [address] Jan, [facility] [address] [id number] [address] [place] [address], [place] [address] Jan, [facility] [address] [id number] [address] [place] [address], [place] [address] Jan, [facility] [address] [id number] [address] [place] [address], [place] [address] December, [facility] [address] [id number] [address] [place] [address], [place] [address] December, [facility] [address] [id number] [address] [place] [address], [place] [address] December, [facility] [address] [id number] [address] [place] [address], [place] [address] December, [facility] [address] [id number] [address] [place] [address], [place] [address] December, [facility] [address] [id number] [address] [place] [address], [place] [address] December, [facility] [address] [id number] [address] [place] [address], [place] [address] December, [facility] [address] [id number] [address] [place] [address], [place] [address] December, [facility] [address] [id number] [address] [place] [address], [place] [address] December, [facility] [address] [id number] [address] [place] [address], [place] [address] December, [facility] [address] [id number] [facility] [place] [address] 16 Nov, 2013 [facility] [address] [id number] [address] [place] [address], [place] [address] Nov, [facility] [address] [id number] [address] [place] [address], [place] [address] Oct, [facility] [address] [id number] [address] [place] [address], [place] [address] Oct, [facility] [address] [id number] [address] [place] [address], [place] [address] Oct, [facility] [address] [id number] [address] [place] [address], [place] [address] Oct, [facility] [address] [id number] [address] [place] [address], [place] [address] Oct, [facility] [address] [id number] [address] [place] [address], [place] [address] Oct, [facility] [address] [id number] [address] [place] [address], [place] [address] Aug, [facility] [address] [id number] [address] [place] [address], [place] [address] Aug, [facility] [address] [id number] [address] [place] [address], [place] [address] Aug, [facility] [address] [id number] [address] [place] [address], [place] [address] Aug, [facility] [address] [id number] [address] [place] [address], [place] [address] Aug, [facility] [address] [id number] [address] [place] [address], [place] [address] Aug, [facility] [address] [id number] [address] [place] [address], [place] [address] Aug, [facility] [address] [id number] [address] [place] [address], [place] [address] Aug, [facility] [address] [id number] [address] [place] [address], [place] [address] Jul, [facility] [address] [id number] [address] [place] [address], [place] [address] Jul, [facility] [address] [id number] [address] [place] [address], [place] [address] Jun, [facility] [address] [id number] [address] [place] [address], [place] [address] Jun, [facility] [address] [id number] [address] [place] [address], [place] [address] Jun, [facility] [address] [id number] [address] [place] [address], [place] [address] Jun, [facility] [address] [id number] [address] [place] [address], [place] [address] Jun, [facility] [address] [id number] [address] [place] [address], [place] [address] Jun, [facility] [address] [id number] [address] [place] [address], [place] [address] May, [facility] [address] [id number] [address] [place] [address], [place] [address] May, [facility] [address] [id number] [address] [place] [address], [place] [address] Apr, [facility] [address] [id number] [address] [place] [address], [place] [address] Apr, [facility] [address] [id number] [address] [place] [address], [place] [address] Mar, [facility] [address] [id number] [address] [place] [address], [place] [address] Mar, [facility] [address] [id number] [address] [place] [address], [place] [address] Mar, [facility] [address] [id number] [address] [place] [address], [place] [address] Feb, [facility] [address] [id number] [address] [place] [address], [place] [address] Jan, [facility] [address] [id number] [address] [place] [address], [place] [address] December, [facility] [address] [id number] [address] [place] [address], [place] [address] December, [facility] [address] [id number] [address] [place] [address], [place] [id number] December, [facility] [address] [id number] [address] [place] [address], [place] [id number] December, [facility] [address] [id number] [address] [place] [address], [place] [id number] December, [facility] [address] [id number] [address] [place] [address], [place] [id number] December, [facility] [address] [id number] [address] [place] [address], [place] [id number] Nov, [facility] [address] [id number] [address] [place] [address], [place] [id number] Nov, [facility] [address] [id number] [address] [place] [address], [place] [id number] Nov, [facility] [address] [id number] [address] [place] [address], [place] [id number] Oct, [facility] [address] [id number] [address] [place] [address], [place] [id number] Jun, [facility] [address] [id number] [address] [place] [address], [place] [id number] Jun, [facility] [address] [id number] [address] [place] [address], [place] [id number] Jun, [facility] [address] [id number] [address] [place] [address], [place] [id number] Jun, [facility] [address] [id number] [address] [place] [address], [place] [id number] 18 Apr, 2012 [facility] [address] [id number] [address] [place] [address], [place] [id number] Mar, [facility] [address] [id number] [address] [place] [address], [place] [id number] Mar, [facility] [address] [id number] [address] [place] [address], [place] [id number] Jan, [facility] [address] [id number] [address] [place] [address], [place] [id number] December, [facility] [address] [id number] [address] [place] [address], [place] [id number] Nov, [facility] [address] [id number] [address] [place] [address], [place] [id number] Nov, [facility] [address] [id number] [address] [place] [address], [place] [id number] Nov, [facility] [address] [id number] [address] [place] [address], [place] [id number] Nov, [facility] [address] [id number] [address] [place] [address], [place] [id number] Aug, [facility] [address] [id number] [address] [place] [address], [place] [id number] Aug, [facility] [address] [id number] [address] [place] [address], [place] [id number] Jul, [facility] [address] [id number] [address] [place] [address], [place] [id number] Jun, [facility] [address] [id number] [address] [place] [address], [place] [id number] Jun, [facility] [address] [id number] [address] [place] [address], [place] [id number] 14 Apr, 2011 [facility] [address] [address] [id number] [address] [place] [address], [place] [id number] Feb, IMMUNIZATIONS No Known Immunizations SOCIAL HISTORY Never Assessed REASON FOR VISIT [facility] [place] VITAL SIGNS MEDICATIONS Unknown Medications RESULTS No Results PROCEDURES No Known procedures INSTRUCTIONS MEDICATIONS ADMINISTERED No Known Medications MEDICAL (GENERAL) HISTORY Type Description Date Medical History Hypertension Medical History ADHD Medical History depression Medical History anxiety Surgical History section Surgical History collar bone repair
--- OUTSIDE RECORDS SUMMARY | 2020-02-11 01:33 | XMS REPORT ---
Author Author Elaine Collier Doctor Organization [facility] Address Unknown Phone Unavailable Care Team Providers Care Chief Projectionist Name Role Phone Migration, Doctor Unavailable Unavailable PROBLEMS Type Condition ICD9-CM Code [id number] Code Onset Dates Condition S tatus SNOMED Code Problem Major depressive disorder, recurrent episode, in full remission F33.42 Active 911467775 Problem Moderate episode of recurrent major depressive disorder F33.1 Active 403381620 Problem Intractable migraine without aura and with status migr ainosus G43.011 Active 038576854 Problem ADHD, predominantly inattentive type F90.0 Active 49279844 Problem Primary insomnia F51.01 Active 397 2004 Problem Essential hypertension I10 Active 19289198 Problem Seasonal allergies J30.2 Active 4 [id number] ALLERGIES No Information ENCOUNTERS Encounter Location Date Diagnosis [place] [address] [place] [id number] [place] [id number] Jan, [place] [address] [id number] 24 Nov, 2018 Moderate episode of recurren t major depressive disorder F33.1 and Intractable migraine without aura and with status migrainosus G43.011 [place] [address] [place] [id number] [address] [place] [phone] Nov, [place] [address] [place] [id number] [place] [phone] Oct, Major depressive disorder, r ecurrent episode, in full remission F33.42 ; Intractable migraine without aura and with status migrainosus G43.011 ; Weight gain R63.5 ; Vision changes H53.9 and 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 [place] [address] [place] [id number] [address] [place] [id number] 15 Oct, 2018 Encounter for pre-employment examination Z02.1 [place] [address] [id number] [address] [place] [phone] Oct, [facility] [address] [id number] [address] [place] [phone] Sep, Acute non-recurrent maxillar y sinusitis J01.00 [facility] [address] [id number] [address] [place] [phone] Sep, [facility] [address] [id number] [address] [place] [phone] Aug, [facility] [address] [id number] [address] [place] [phone] Jul, ADHD, predominantly inattent randall type F90.0 and Primary insomnia F51.01 [facility] [address] [facility] [id number] [address] [place] [phone] Jun, ADHD, predominantly inattent randall type F90.0 [facility] [address] [facility] [id number] [address] [place] [phone] May, ADHD, predominantly inattent randall type F90.0 ; Moderate episode of recurrent major depressive disorder F33.1 and Therapeutic drug monitoring Z51.81 [facility] [address] [facility] [id number] [address] [place] [id number] 04 May, 2018 [facility] [address] [id number] [address] [place] [phone] Apr, ADHD, predominantly inattent randall type F90.0 [facility] [address] [id number] [address] [place] [id number] 10 Apr, 2018 ADHD, predominantly inattent randall type F90.0 and Major depressive disorder, recurrent episode, in full remission F33.42 [facility] [address] [facility] [id number] [address] [place] [phone] Mar, ADHD, predominantly inattent randall type F90.0 and Primary insomnia F51.01 [facility] [address] [facility] [id number] [address] [place] [phone] Mar, [facility] [address] [place] [id number] [address] [place] [phone] Mar, ADHD, predominantly inattent randall type F90.0 and Primary insomnia F51.01 [facility] [address] [place] [id number] [address] [place] [phone] Feb, ADHD, predominantly inattent randall type F90.0 and Primary insomnia F51.01 [facility] [address] [place] [id number] [place] [address] Jan, ADHD, predominantly inattent randall type F90.0 and Primary insomnia F51.01 [facility] [address] [place] [id number] [address] [place] [phone] December, Seasonal allergies J30.2 and Post-nasal drip R09.82 [place] [address] [id number] December, ADHD, predominantly inattent randall type F90.0 and Primary insomnia F51.01 [place] [address] [address] Nov, ADHD, predominantly inattent randall type F90.0 [place] [address] [place] [id number] [address] [place] [phone] Oct, ADHD, predominantly inattent randall type F90.0 [place] [address] [place] [id number] [address] [place] [phone] Oct, ADHD, predominantly inattent randall type F90.0 ; Primary insomnia F51.01 and Screening, lipid Z13.220 [place] [address] [place] [id number] [place] [phone] Sep, ADHD, predominantly inattent randall type F90.0 [facility] [address] [place] [id number] [address] [place] [phone] Aug, ADHD, predominantly inattent randall type F90.0 and Primary insomnia F51.01 [facility] [address] [id number] [address] [place] [phone] Jul, ADHD, predominantly inattent randall type F90.0 [facility] [address] [id number] [address] [place] [phone] Jul, Primary insomnia F51.01 and ADHD, predominantly inattentive type F90.0 [facility] [address] [id number] [address] [place] [id number] Jun, ADHD, predominantly inattent randall type F90.0 [facility] [address] [id number] [address] [place] [phone] May, ADHD, predominantly inattent randall type F90.0 [facility] [address] [id number] [address] [place] [phone] Apr, ADHD, predominantly inattent randall type F90.0 [facility] [address] [id number] [address] [place] [phone] Mar, ADHD, predominantly inattent randall type F90.0 ; Primary insomnia F51.01 ; Major depressive disorder, recurrent episode, in full remission F33.42 and Acne comedone L70.0 [facility] [address] [id number] [address] [place] [phone] Mar, Major depressive disorder, r ecurrent episode, in full remission F33.42 and ADHD, predominantly inattentive type F90.0 [facility] [address] [id number] [address] [place] [phone] Feb, ADHD, predominantly inattent randall type F90.0 [facility] [address] [id number] [address] [place] [phone] Feb, Primary insomnia F51.01 [facility] [address] [id number] [address] [place] [phone] Jan, ADHD, predominantly inattent randall type F90.0 and Primary insomnia F51.01 [facility] [address] [facility] [id number] [address] [place] [phone] December, ADHD, predominantly inattent randall type F90.0 and Primary insomnia F51.01 [facility] [address] [facility] [id number] [address] [place] [phone] Oct, ADHD, predominantly inattent randall type F90.0 and Primary insomnia F51.01 [place] [address] [facility] [id number] [address] [place] [phone] Sep, ADHD, predominantly inattent randall type F90.0 and Primary insomnia F51.01 [place] [address] [facility] [id number] [address] [place] [phone] Aug, ADHD, predominantly inattent randall type F90.0 and Primary insomnia F51.01 [place] [address] [place] [id number] [address] [place] [phone] Jul, Major depressive disorder, r ecurrent episode, in full remission F33.42 ; ADHD, predominantly inattentive type F90.0 ; Primary insomnia F51.01 ; Acute non-recurrent maxillary sinusitis J01.00 and Screening, lipid Z13.220 [facility] [place] [address] [place] [id number] [address] [place] [phone] Jun, Acute non-recurrent maxillar y sinusitis J01.00 [place] [address] [facility] [id number] [address] [place] [phone] Jun, ADHD, predominantly inattent randall type F90.0 [facility] [address] [facility] [id number] [address] [place] [phone] May, [place] [address] [place] [id number] [address] [place] [id number] Apr, [facility] [address] [facility] [id number] [address] [place] [phone] Feb, Rash R21 and Scabies B86 [place] [address] [id number] [address] [place] [phone] Feb, ADHD, predominantly inattent randall type F90.0 and Major depressive disorder, recurrent episode, in full remission F33.42 [facility] [address] [id number] [address] [place] [id number] 05 Feb, 2016 [facility] [address] [id number] [address] [place] [phone] Oct, [facility] [address] [id number] [address] [place] [phone] Sep, [facility] [address] [id number] [address] [place] [phone] Sep, [facility] [address] [id number] [address] [place] [phone] Aug, [facility] [address] [id number] [address] [place] [phone] Jul, [facility] [address] [id number] [address] [place] [phone] Jun, [facility] [address] [id number] [address] [place] [phone] May, [facility] [address] [id number] [address] [place] [phone] May, ADHD, predominantly inattent randall type F90.0 and Major depressive disorder, recurrent episode, in full remission F33.42 [facility] [address] [id number] [address] [place] [phone] Feb, Major depressive disorder, r ecurrent episode, moderate 296.32 [facility] [address] [id number] [address] [place] [phone] Feb, [facility] [address] [id number] [address] [place] [phone] Jan, [facility] [address] [id number] [address] [place] [phone] Jan, [facility] [address] [id number] [address] [place] [address], [place] [address] December, [facility] [address] [id number] [address] [place] [address], [place] [address] Nov, [facility] [address] [id number] [address] [place] [address], [place] [address] Nov, [facility] [address] [id number] [address] [place] [address], [place] [address] Oct, [facility] [address] [id number] [address] [place] [address], [place] [address] Oct, [facility] [address] [id number] [address] [place] [address], [place] [address] Sep, [facility] [address] [id number] [address] [place] [address], [place] [address] Sep, [facility] [address] [id number] [address] [place] [address], [place] [address] Sep, [facility] [address] [id number] [address] [place] [address], [place] [address] Sep, [facility] [address] [id number] [address] [place] [address], [place] [address] Aug, [facility] [address] [id number] [address] [place] [address], [place] [address] Aug, [facility] [address] [id number] [address] [place] [address], [place] [address] Aug, [facility] [address] [id number] [address] [place] [address], [place] [address] Aug, [facility] [address] [id number] [address] [place] [address], [place] [address] Aug, [facility] [address] [id number] [address] [place] [address], [place] [address] Aug, [facility] [address] [id number] [address] [place] [address], [place] [address] Jul, [facility] [address] [id number] [address] [place] [address], [place] [address] Jul, [facility] [address] [id number] [address] [place] [address], [place] [address] Jun, [facility] [address] [id number] [address] [place] [address], [place] [address] Jun, [facility] [address] [id number] [address] [place] [address], [place] [address] May, [facility] [address] [id number] [address] [place] [address], [place] [address] May, [facility] [address] [id number] [address] [place] [address], [place] [address] Apr, [facility] [address] [id number] [address] [place] [address], [place] [address] Apr, [facility] [address] [id number] [address] [place] [address], [place] [address] Apr, [facility] [address] [id number] [address] [place] [address], [place] [address] Mar, [facility] [address] [id number] [address] [place] [address], [place] [address] Mar, [facility] [address] [id number] [address] [place] [address], [place] [address] Mar, [facility] [address] [id number] [address] [place] [address], [place] [address] Mar, [facility] [address] [id number] [address] [place] [address], [place] [address] Feb, [facility] [address] [id number] [address] [place] [address], [place] [address] Feb, [facility] [address] [id number] [address] [place] [address], [place] [address] Feb, [facility] [address] [id number] [facility] [place] [address] Feb, [facility] [address] [id number] [facility] [place] [address] Feb, [facility] [address] [id number] [facility] [place] [address] Feb, [facility] [address] [id number] [address] [place] [address], [place] [address] Jan, [facility] [address] [id number] [address] [place] [address], [place] [address] Jan, [facility] [address] [id number] [address] [place] [address], [place] [address] Jan, [facility] [address] [id number] [address] [place] [address], [place] [address] Jan, [facility] [address] [id number] [address] [place] [address], [place] [address] December, [facility] [address] [id number] [address] [place] [address], [place] [address] December, [facility] [address] [id number] [address] [place] [address], [place] [address] December, [facility] [address] [id number] [address] [place] [address], [place] [address] December, [facility] [address] [id number] [address] [place] [address], [place] [address] December, [facility] [address] [id number] [address] [place] [address], [place] [address] December, [facility] [address] [id number] [address] [place] [address], [place] [address] December, [facility] [address] [id number] [address] [place] [address], [place] [address] December, [facility] [address] [id number] [address] [place] [address], [place] [address] December, [facility] [address] [id number] [address] [place] [address], [place] [address] December, [facility] [address] [id number] [address] [place] [address], [place] [address] Nov, [facility] [address] [id number] [address] [place] [address], [place] [address] Nov, [facility] [address] [id number] [address] [place] [address], [place] [address] Oct, [facility] [address] [id number] [address] [place] [address], [place] [address] Oct, [facility] [address] [id number] [address] [place] [address], [place] [address] Oct, [facility] [address] [id number] [address] [place] [address], [place] [address] Oct, [facility] [address] [id number] [address] [place] [address], [place] [address] Oct, [facility] [address] [id number] [address] [place] [address], [place] [address] Oct, [facility] [address] [id number] [address] [place] [address], [place] [address] Aug, [facility] [address] [id number] [address] [place] [address], [place] [address] Aug, [facility] [address] [id number] [address] [place] [address], [place] [address] Aug, [facility] [address] [id number] [address] [place] [address], [place] [address] Aug, [facility] [address] [id number] [address] [place] [address], [place] [address] Aug, [facility] [address] [id number] [address] [place] [address], [place] [address] Aug, [facility] [address] [id number] [address] [place] [address], [place] [address] Aug, [facility] [address] [id number] [address] [place] [address], [place] [address] Aug, [facility] [address] [id number] [address] [place] [address], [place] [address] Jul, [facility] [address] [id number] [address] [place] [address], [place] [address] Jul, [facility] [address] [id number] [address] [place] [address], [place] [address] Jun, [facility] [address] [id number] [address] [place] [address], [place] [address] Jun, [facility] [address] [id number] [address] [place] [address], [place] [address] Jun, [facility] [address] [id number] [address] [place] [address], [place] [address] Jun, [facility] [address] [id number] [address] [place] [address], [place] [address] Jun, [facility] [address] [id number] [address] [place] [address], [place] [address] Jun, [facility] [address] [id number] [address] [place] [address], [place] [address] May, [facility] [address] [id number] [address] [place] [address], [place] [address] May, [facility] [address] [id number] [address] [place] [address], [place] [id number] 16 Apr, 2013 [facility] [address] [id number] [address] [place] [address], [place] [id number] Apr, [facility] [address] [id number] [address] [place] [address], [place] [id number] Mar, [facility] [address] [id number] [address] [place] [address], [place] [id number] Mar, [facility] [address] [id number] [address] [place] [address], [place] [address] Mar, [facility] [address] [id number] [address] [place] [address], [place] [address] Feb, [facility] [address] [id number] [address] [place] [address], [place] [address] Jan, [facility] [address] [id number] [address] [place] [address], [place] [address] December, [facility] [address] [id number] [address] [place] [address], [place] [address] December, [facility] [address] [id number] [address] [place] [address], [place] [id number] December, [facility] [address] [id number] [address] [place] [address], [place] [address] December, [facility] [address] [id number] [address] [place] [address], [place] [address] December, [facility] [address] [id number] [address] [place] [address], [place] [address] December, [facility] [address] [id number] [address] [place] [address], [place] [address] Nov, [facility] [address] [id number] [address] [place] [address], [place] [address] Nov, [facility] [address] [id number] [address] [place] [address], [place] [address] Nov, [facility] [address] [id number] [address] [place] [address], [place] [address] Oct, [facility] [address] [id number] [address] [place] [address], [place] [address] Jun, [facility] [address] [id number] [address] [place] [address], [place] [address] Jun, [facility] [address] [id number] [address] [place] [address], [place] [address] Jun, [facility] [address] [id number] [address] [place] [address], [place] [id number] Jun, [facility] [address] [id number] [address] [place] [address], [place] [address] Apr, [facility] [address] [id number] [address] [place] [address], [place] [address] Mar, [facility] [address] [id number] [address] [place] [address], [place] [address] Mar, [facility] [address] [id number] [address] [place] [address], [place] [address] Jan, [facility] [address] [id number] [address] [place] [address], [place] [id number] December, [facility] [address] [id number] [address] [place] [address], [place] [id number] Nov, [facility] [address] [id number] [address] [place] [address], [place] [id number] Nov, [facility] [address] [id number] [address] [place] [address], [place] [id number] Nov, [facility] [address] [id number] [address] [place] [address], [place] [id number] Nov, [facility] [address] [id number] [address] [place] [address], [place] [address] Aug, [facility] [address] [id number] [address] [place] [address], [place] [id number] Aug, [facility] [address] [id number] [address] [place] [address], [place] [address] Jul, [facility] [address] [id number] [address] [place] [address], [place] [id number] Jun, [facility] [address] [id number] [address] [place] [address], [place] [id number] Jun, [facility] [address] [facility] [id number] [address] [place] [id number] Apr, [facility] [address] [facility] [id number] [address] [place] [id number] Feb, IMMUNIZATIONS No Known Immunizations SOCIAL HISTORY [...]
--- OUTSIDE RECORDS SUMMARY | 2020-02-11 01:33 | XMS REPORT ---
Author Author Elaine Collier Doctor Organization [facility] Address Unknown Phone Unavailable Care Team Providers Care Design Intern Name Role Phone Migration, Doctor Unavailable Unavailable PROBLEMS Type Condition ICD9-CM Code [id number] Code Onset Dates Condition S tatus SNOMED Code Problem Major depressive disorder, recurrent episode, in full remission F33.42 Active 216194011 Problem Moderate episode of recurrent major depressive disorder F33.1 Active 707680037 Problem Intractable migraine without aura and with status migr ainosus G43.011 Active 092665250 Problem ADHD, predominantly inattentive type F90.0 Active 47497455 Problem Primary insomnia F51.01 Active 397 2004 Problem Essential hypertension I10 Active 79005953 Problem Seasonal allergies J30.2 Active 4 [id number] ALLERGIES No Information ENCOUNTERS Encounter Location Date Diagnosis [facility], [place] [address] [id number] [place] [phone] Nov, [facility], [place] [address] [address] Oct, Major depressive disorder, r ecurrent episode, in full remission F33.42 ; Intractable migraine without aura and with status migrainosus G43.011 ; Weight gain R63.5 ; Vision changes H53.9 and 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 Z79.899 [facility], [place] [id number] [place] [id number] Oct, Encounter for pre-employment examination Z02.1 [facility], [place] [id number] [place] [phone] Oct, [facility] [id number] [place] [id number] Sep, Acute non-recurrent maxillar y sinusitis J01.00 [facility], [place] [id number] [place] [id number] Sep, [facility], [place] [address] [id number] [address] [place] [phone] Aug, [facility], [place] [address] [id number] [address] [place] [id number] Jul, ADHD, predominantly inattent randall type F90.0 and Primary insomnia F51.01 [facility], [place] [address] [id number] [address] [place] [id number] Jun, ADHD, predominantly inattent randall type F90.0 [place] [address] [id number] [address] [place] [id number] May, ADHD, predominantly inattent randall type F90.0 ; Moderate episode of recurrent major depressive disorder F33.1 and Therapeutic drug monitoring Z51.81 [place] [address] [id number] [address] [place] [phone] May, [facility], [place] [address] [id number] [address] [place] [id number] Apr, ADHD, predominantly inattent randall type F90.0 [facility], [place] [address] [id number] [address] [place] [id number] Apr, ADHD, predominantly inattent randall type F90.0 and Major depressive disorder, recurrent episode, in full remission F33.42 [facility], [place] [address] [id number] [address] [place] [id number] Mar, ADHD, predominantly inattent randall type F90.0 and Primary insomnia F51.01 [facility], [place] [address] [id number] [address] [place] [id number] Mar, [facility], [place] [address] [id number] [address] [place] [id number] Mar, ADHD, predominantly inattent randall type F90.0 and Primary insomnia F51.01 [facility], [place] [address] [id number] [address] [place] [id number] Feb, ADHD, predominantly inattent randall type F90.0 and Primary insomnia F51.01 [facility], [place] [address] [id number] [address] [place] [phone] Jan, ADHD, predominantly inattent randall type F90.0 and Primary insomnia F51.01 [facility] [address] [id number] [address] [place] [id number] December, Seasonal allergies J30.2 and Post-nasal drip R09.82 [facility], [place] [address] [id number] [address] [place] [phone] December, ADHD, predominantly inattent randall type F90.0 and Primary insomnia F51.01 [place] [address] [id number] [address] [place] [id number] Nov, ADHD, predominantly inattent randall type F90.0 [place] [address] [id number] [address] [place] [id number] Oct, ADHD, predominantly inattent randall type F90.0 [facility], [place] [address] [id number] [address] [place] [id number] Oct, ADHD, predominantly inattent randall type F90.0 ; Primary insomnia F51.01 and Screening, lipid Z13.220 [place] [address] [id number] [address] [place] [id number] Sep, ADHD, predominantly inattent randall type F90.0 [facility], [place] [address] [id number] [address] [place] [id number] Aug, ADHD, predominantly inattent randall type F90.0 and Primary insomnia F51.01 [place] [address] [id number] [address] [place] [phone] Jul, ADHD, predominantly inattent randall type F90.0 [place] [address] [id number] [address] [place] [id number] Jul, Primary insomnia F51.01 and ADHD, predominantly inattentive type F90.0 [facility], [place] [address] [id number] [address] [place] [phone] Jun, ADHD, predominantly inattent randall type F90.0 [facility], [place] [address] [id number] [address] [place] [id number] May, ADHD, predominantly inattent randall type F90.0 [facility], [place] [address] [id number] [address] [place] [id number] Apr, ADHD, predominantly inattent randall type F90.0 [facility], [place] [address] [id number] [address] [place] [id number] Mar, ADHD, predominantly inattent randall type F90.0 ; Primary insomnia F51.01 ; Major depressive disorder, recurrent episode, in full remission F33.42 and Acne comedone L70.0 [facility], [place] [address] [id number] [address] [place] [id number] Mar, Major depressive disorder, r ecurrent episode, in full remission F33.42 and ADHD, predominantly inattentive type F90.0 [place] [address] [id number] [address] [place] [id number] Feb, ADHD, predominantly inattent randall type F90.0 [facility], [place] [address] [id number] [address] [place] [id number] Feb, Primary insomnia F51.01 [facility], [place] [address] [id number] [address] [place] [phone] Jan, ADHD, predominantly inattent randall type F90.0 and Primary insomnia F51.01 [facility], [place] [address] [id number] [address] [place] [id number] December, ADHD, predominantly inattent randall type F90.0 and Primary insomnia F51.01 [facility], [place] [address] [id number] [address] [place] [id number] Oct, ADHD, predominantly inattent randall type F90.0 and Primary insomnia F51.01 [facility], [place] [address] [id number] [address] [place] [id number] Sep, ADHD, predominantly inattent randall type F90.0 and Primary insomnia F51.01 [facility], [place] [address] [id number] [address] [place] [id number] Aug, ADHD, predominantly inattent randall type F90.0 and Primary insomnia F51.01 [place] [address] [id number] [address] [place] [id number] Jul, Major depressive disorder, r ecurrent episode, in full remission F33.42 ; ADHD, predominantly inattentive type F90.0 ; Primary insomnia F51.01 ; Acute non-recurrent maxillary sinusitis J01.00 and Screening, lipid Z13.220 [facility] [address] [id number] [address] [place] [id number] Jun, Acute non-recurrent maxillar y sinusitis J01.00 [facility], [place] [address] [id number] [address] [place] [id number] Jun, ADHD, predominantly inattent randall type F90.0 [facility], [place] [address] [id number] [address] [place] [id number] May, [facility], [place] [address] [id number] [address] [place] [id number] Apr, [facility] [address] [id number] [address] [place] [id number] Feb, Rash R21 and Scabies B86 [facility], [place] [address] [id number] [address] [place] [id number] Feb, ADHD, predominantly inattent randall type F90.0 and Major depressive disorder, recurrent episode, in full remission F33.42 [facility], [place] [address] [id number] [address] [place] [phone] Feb, [place] [address] [id number] [address] [place] [id number] Oct, [facility], [place] [address] [id number] [address] [place] [id number] Sep, [facility], [place] [address] [id number] [address] [place] [id number] Sep, [facility], [place] [address] [id number] [address] [place] [phone] Aug, [facility], [place] [address] [id number] [address] [place] [phone] Jul, [facility], [place] [address] [id number] [address] [place] [id number] Jun, [facility], [place] [address] [id number] [address] [place] [id number] May, [facility], [place] [address] [id number] [address] [place] [id number] May, ADHD, predominantly inattent randall type F90.0 and Major depressive disorder, recurrent episode, in full remission F33.42 [facility], [place] [address] [id number] [address] [place] [id number] Feb, Major depressive disorder, r ecurrent episode, moderate 296.32 [facility], [place] [address] [id number] [address] [place] [phone] Feb, [facility], [place] [address] [id number] [address] [place] [id number] Jan, [facility], [place] [address] [id number] [address] [place] [id number] Jan, [facility], [place] [address] [id number] [address] [place] [id number] December, [facility], [place] [address] [id number] [address] [place] [id number] Nov, [facility], [place] [address] [id number] [address] [place] [id number] Nov, [facility] [address] [id number] [address] [place] [address], [place] [id number] Oct, [facility] [address] [id number] [address] [place] [address], [place] [id number] Oct, [facility] [address] [id number] [address] [place] [address], [place] [address] Sep, [facility] [address] [id number] [address] [place] [address], [place] [address] Sep, [facility] [address] [id number] [address] [place] [address], [place] [address] Sep, [facility] [address] [id number] [address] [place] [address], [place] [address] Sep, [facility] [address] [id number] [address] [place] [phone] Aug, [facility] [address] [id number] [address] [place] [address], [place] [address] Aug, [facility] [address] [id number] [address] [place] [address], [place] [phone] Aug, [facility] [address] [id number] [address] [place] [address], [place] [address] Aug, [facility] [address] [id number] [address] [place] [address], [place] [phone] Aug, [facility] [address] [id number] [address] [place] [phone] Aug, [facility] [address] [id number] [address] [place] [address], [place] [address] Jul, [facility] [address] [id number] [address] [place] [address], [place] [address] Jul, [facility] [address] [id number] [address] [place] [address], [place] [address] Jun, [facility] [address] [id number] [address] [place] [address], [place] [phone] Jun, [facility] [address] [id number] [address] [place] [address], [place] [address] May, [facility] [address] [id number] [address] [place] [address], [place] [address] May, [facility] [address] [id number] [address] [place] [address], [place] [id number] Apr, [facility] [address] [id number] [address] [place] [address], [place] [address] Apr, [facility] [address] [id number] [address] [place] [address], [place] [address] Apr, [facility] [address] [id number] [address] [place] [address], [place] [address] Mar, [facility] [address] [id number] [address] [place] [address], [place] [address] Mar, [facility] [address] [id number] [address] [place] [address], [place] [address] Mar, [facility] [address] [id number] [address] [place] [address], [place] [address] Mar, [facility] [address] [id number] [address] [place] [address], [place] [address] Feb, [facility] [address] [id number] [address] [place] [address], [place] [address] Feb, [facility] [address] [id number] [address] [place] [address], [place] [address] Feb, [facility] [address] [id number] [address] [place] [address], [place] [address] Feb, [facility] [address] [id number] [address] [place] [address], [place] [address] Feb, [facility] [address] [id number] [address] [place] [address], [place] [address] Feb, [facility] [address] [id number] [facility] [place] [address] Jan, [facility] [address] [id number] [address] [place] [address], [place] [address] Jan, [facility] [address] [id number] [address] [place] [address], [place] [address] Jan, [facility] [address] [id number] [address] [place] [address], [place] [address] Jan, [facility] [address] [id number] [address] [place] [address], [place] [address] December, [facility] [address] [id number] [address] [place] [address], [place] [address] December, [facility] [address] [id number] [address] [place] [address], [place] [address] December, [facility] [address] [id number] [address] [place] [address], [place] [address] December, [facility] [address] [id number] [address] [place] [address], [place] [address] December, [facility] [address] [id number] [address] [place] [address], [place] [address] December, [facility] [address] [id number] [address] [place] [address], [place] [address] December, [facility] [address] [id number] [address] [place] [address], [place] [address] December, [facility] [address] [id number] [address] [place] [address], [place] [address] December, [facility] [address] [id number] [address] [place] [address], [place] [address] December, [facility] [address] [id number] [address] [place] [address], [place] [address] Nov, [facility] [address] [id number] [address] [place] [address], [place] [address] 16 Nov, 2013 [facility] [address] [id number] [address] [place] [address], [place] [address] 10 Oct, 2013 [facility] [address] [id number] [address] [place] [address], [place] [address] Oct, [facility] [address] [id number] [address] [place] [address], [place] [address] Oct, [facility] [address] [id number] [address] [place] [address], [place] [address] Oct, [facility] [address] [id number] [address] [place] [address], [place] [address] Oct, [facility] [address] [id number] [address] [place] [address], [place] [address] Oct, [facility] [address] [id number] [address] [place] [address], [place] [address] Aug, [facility] [address] [id number] [address] [place] [address], [place] [address] Aug, [facility] [address] [id number] [address] [place] [address], [place] [address] Aug, [facility] [address] [id number] [address] [place] [address], [place] [address] Aug, [facility] [address] [id number] [address] [place] [address], [place] [address] Aug, [facility] [address] [id number] [address] [place] [address], [place] [address] Aug, [facility] [address] [id number] [address] [place] [address], [place] [address] Aug, [facility] [address] [id number] [address] [place] [address], [place] [address] Aug, [facility] [address] [id number] [address] [place] [address], [place] [address] Jul, [facility] [address] [id number] [address] [place] [address], [place] [address] Jul, [facility] [address] [id number] [address] [place] [address], [place] [address] Jun, [facility] [address] [id number] [address] [place] [address], [place] [address] Jun, [facility] [address] [id number] [address] [place] [address], [place] [address] Jun, [facility] [address] [id number] [address] [place] [address], [place] [address] Jun, [facility] [address] [id number] [address] [place] [address], [place] [address] Jun, [facility] [address] [id number] [address] [place] [address], [place] [address] Jun, [facility] [address] [id number] [address] [place] [address], [place] [address] May, [facility] [address] [id number] [address] [place] [address], [place] [address] May, [facility] [address] [id number] [address] [place] [address], [place] [address] Apr, [facility] [address] [id number] [address] [place] [address], [place] [address] Apr, [facility] [address] [id number] [address] [place] [address], [place] [id number] Mar, [facility] [address] [id number] [address] [place] [address], [place] [address] Mar, [facility] [address] [id number] [address] [place] [address], [place] [address] Mar, [facility] [address] [id number] [address] [place] [address], [place] [address] Feb, [facility] [address] [id number] [address] [place] [address], [place] [address] Jan, [facility] [address] [id number] [address] [place] [address], [place] [address] December, [facility] [address] [id number] [address] [place] [address], [place] [address] December, [facility] [address] [id number] [address] [place] [address], [place] [address] December, [facility] [address] [id number] [address] [place] [address], [place] [address] December, [facility] [address] [id number] [address] [place] [address], [place] [address] December, [facility] [address] [id number] [address] [place] [address], [place] [address] December, [facility] [address] [id number] [address] [place] [address], [place] [address] Nov, [facility] [address] [id number] [address] [place] [address], [place] [id number] Nov, [facility] [address] [id number] [address] [place] [address], [place] [address] Nov, [facility] [address] [id number] [address] [place] [address], [place] [address] Oct, [facility] [address] [id number] [address] [place] [address], [place] [id number] 14 Jun, 2012 [facility] [address] [id number] [address] [place] [address], [place] [id number] 14 Jun, 2012 [facility] [address] [id number] [address] [place] [address], [place] [id number] Jun, [facility] [address] [id number] [address] [place] [address], [place] [address] Jun, [facility] [address] [id number] [address] [place] [address], [place] [id number] 18 Apr, 2012 [facility] [address] [id number] [address] [place] [id number] Mar, [facility] [place] [address] [id number] [address] [place] [id number] Mar, [facility] [place] [address] [id number] [address] [place] [id number] Jan, [facility] [place] [address] [id number] [address] [place] [id number] December, [facility] [place] [address] [id number] [address] [place] [id number] Nov, [facility] [place] [address] [id number] [address] [place] [id number] Nov, [facility] [place] [address] [id number] [address] [place] [id number] Nov, [facility] [place] [address] [id number] [address] [place] [id number] Nov, [facility] [place] [address] [id number] [address] [place] [id number] Aug, [facility] [place] [address] [id number] [address] [place] [phone] Aug, [facility] [place] [address] [id number] [address] [place] [id number] Jul, [facility] [facility] [place] [address] [id number] [address] [place] [id number] Jun, [facility], [place] [address] [id number] [address] [place] [id number] Jun, [facility] [place] [address] [id number] [address] [place] [id number] Apr, [facility], [place] [address] [id number] [address] [place] [id number] Feb, IMMUNIZATIONS No Known Immunizations SOCIAL HISTORY Never Assessed REASON FOR VISIT [facility] PLAN OF CARE VITAL SIGNS MEDICATIONS Medication Instructions Dosage Frequency Start Date End Date Duration S dante zolpidem 10 mg 1 mg by Oral route 1 time per day Aug, Active Atenolol 50 mg 1 tablet by Oral route 1 time per day Aug, Active Flonase 50 mcg/actuation 1 sprays by Brijesh al route 2 times per day in each nostril Aug, Active Effexor XR 150 mg 1 capsule by Oral route 2 times per day Aug, Active Lisinopril-Hydrochlorothiazide 20-12.5 mg 1 tablet by Oral route 1 time per day Aug, Active Adderall XR 20 mg 2 capsule by Oral ro lissy 1 time per day in the morning, for ADHD Oct, Active RESULTS No Results PROCEDURES No Known procedures INSTRUCTIONS MEDICATIONS ADMINISTERED No Known Medications MEDICAL (GENERAL) HISTORY Type Description Date Medical History Hypertension Medical History ADHD Medical History depression Medical History anxiety Surgical History section Surgical History collar bone repair
--- OUTSIDE RECORDS SUMMARY | 2020-02-11 01:34 | XMS REPORT ---
Author Author Elaine GALARZA Organization [facility] Address [address] [place] [address] Care Team Providers Care Clinical Evaluator Name Role Phone MARI GALARZA Unavailable PROBLEMS Type Condition ICD9-CM Code [id number] Code Onset Dates Condition S tatus SNOMED Code Problem Seasonal allergies J30.2 Active 4 97877234 Problem Essential hypertension I10 Active 88842143 Problem Major depressive disorder, recurrent episode, in full remission F33.42 Active 957263163 Problem Primary insomnia F51.01 Active 397 2004 Problem ADHD, predominantly inattentive type F90.0 Active [id number] ALLERGIES No Information ENCOUNTERS Encounter Location Date Diagnosis [place] [address] [place] [id number] [address] [place] [address] May, [place] [address] [facility] [id number] [address] [place] [address] Apr, ADHD, predominantly inattent randall type F90.0 and Major depressive disorder, recurrent episode, in full remission F33.42 [place] [address] [place] [id number] [address] [place] [address] Mar, ADHD, predominantly inattent randall type F90.0 and Primary insomnia F51.01 [place] [id number] [place] [id number] [address] [place] [address] Mar, [place] [address] [place] [id number] [address] [place] [address] Mar, ADHD, predominantly inattent randall type F90.0 and Primary insomnia F51.01 [place] [address] [facility] [id number] [address] [place] [address] Feb, ADHD, predominantly inattent randall type F90.0 and Primary insomnia F51.01 [facility] [address] [id number] [address] [place] [address] Jan, ADHD, predominantly inattent randall type F90.0 and Primary insomnia F51.01 [facility] [address] [id number] [address] [place] [address] December, Seasonal allergies J30.2 and Post-nasal drip R09.82 [facility] [address] [facility] [id number] [address] [place] [address] December, ADHD, predominantly inattent randall type F90.0 and Primary insomnia F51.01 [place] [address] [facility] [id number] [address] [place] [address] Nov, ADHD, predominantly inattent randall type F90.0 [place] [address] [facility] [id number] [address] [place] [address] Oct, ADHD, predominantly inattent randall type F90.0 [facility] [address] [facility] [id number] [address] [place] [address] Oct, ADHD, predominantly inattent randall type F90.0 ; Primary insomnia F51.01 and Screening, lipid Z13.220 [place] [address] [facility] [id number] [address] [place] [address] Sep, ADHD, predominantly inattent randall type F90.0 [facility] [address] [facility] [id number] [address] [place] [address] Aug, ADHD, predominantly inattent randall type F90.0 and Primary insomnia F51.01 [facility] [address] [facility] [id number] [address] [place] [address] Jul, ADHD, predominantly inattent randall type F90.0 [facility] [address] [facility] [id number] [address] [place] [address] Jul, Primary insomnia F51.01 and ADHD, predominantly inattentive type F90.0 [place] [address] [id number] [address] [place] [address] Jun, ADHD, predominantly inattent randall type F90.0 [facility] [address] [id number] [address] [place] [address] May, ADHD, predominantly inattent randall type F90.0 [facility] [address] [id number] [address] [place] [address] Apr, ADHD, predominantly inattent randall type F90.0 [facility] [address] [id number] [address] [place] [address] Mar, ADHD, predominantly inattent randall type F90.0 ; Primary insomnia F51.01 ; Major depressive disorder, recurrent episode, in full remission F33.42 and Acne comedone L70.0 [facility] [address] [id number] [address] [place] [address] Mar, Major depressive disorder, r ecurrent episode, in full remission F33.42 and ADHD, predominantly inattentive type F90.0 [facility] [address] [id number] [address] [place] [address] Feb, ADHD, predominantly inattent randall type F90.0 [facility] [address] [id number] [address] [place] [address] Feb, Primary insomnia F51.01 [facility] [address] [facility] [id number] [address] [place] [address] Jan, ADHD, predominantly inattent randall type F90.0 and Primary insomnia F51.01 [facility] [address] [id number] [address] [place] [address] December, ADHD, predominantly inattent randall type F90.0 and Primary insomnia F51.01 [facility] [address] [id number] [address] [place] [address] Oct, ADHD, predominantly inattent randall type F90.0 and Primary insomnia F51.01 [facility] [address] [facility] [id number] [address] [place] [address] Sep, ADHD, predominantly inattent randall type F90.0 and Primary insomnia F51.01 [facility] [address] [facility] [id number] [address] [place] [address] Aug, ADHD, predominantly inattent randall type F90.0 and Primary insomnia F51.01 [place] [address] [place] [id number] [address] [place] [address] Jul, Major depressive disorder, r ecurrent episode, in full remission F33.42 ; ADHD, predominantly inattentive type F90.0 ; Primary insomnia F51.01 ; Acute non-recurrent maxillary sinusitis J01.00 and Screening, lipid Z13.220 [facility] [address] [facility] [id number] [address] [place] [address] Jun, Acute non-recurrent maxillar y sinusitis J01.00 [place] [address] [facility] [id number] [address] [place] [address] Jun, ADHD, predominantly inattent randall type F90.0 [place] [address] [facility] [id number] [address] [place] [address] May, [facility] [address] [place] [id number] [address] [place] [address] Apr, [facility] [address] [facility] [id number] [address] [place] [address] Feb, Rash R21 and Scabies B86 [facility] [address] [facility] [id number] [address] [place] [address] Feb, ADHD, predominantly inattent randall type F90.0 and Major depressive disorder, recurrent episode, in full remission F33.42 [facility] [address] [facility] [id number] [address] [place] [address] Feb, [facility] [address] [facility] [id number] [address] [place] [address] Oct, [facility] [address] [id number] [address] [place] [address] Sep, [facility] [address] [id number] [address] [place] [address] Sep, [facility] [address] [id number] [address] [place] [address] Aug, [facility] [address] [id number] [address] [place] [address] Jul, [facility] [address] [id number] [address] [place] [address] Jun, [facility] [address] [id number] [address] [place] [address] May, [facility] [address] [id number] [address] [place] [address] May, ADHD, predominantly inattent randall type F90.0 and Major depressive disorder, recurrent episode, in full remission F33.42 [facility] [address] [id number] [address] [place] [address] Feb, Major depressive disorder, r ecurrent episode, moderate 296.32 [facility] [address] [id number] [address] [place] [address] Feb, [facility] [address] [id number] [address] [place] [address] Jan, [facility] [address] [id number] [address] [place] [address] Jan, [facility] [address] [id number] [address] [place] [address] December, [facility] [address] [id number] [address] [place] [address] Nov, [facility] [address] [id number] [address] [place] [address] Nov, [facility] [address] [id number] [address] [place] [address], [place] [address] Oct, [facility] [address] [id number] [address] [place] [address], [place] [address] Oct, [facility] [address] [id number] [address] [place] [address], [place] [address] Sep, [facility] [address] [id number] [address] [place] [address], [place] [address] Sep, [facility] [address] [id number] [address] [place] [address], [place] [address] Sep, [facility] [address] [id number] [address] [place] [address], [place] [address] Sep, [facility] [address] [id number] [address] [place] [address], [place] [address] Aug, [facility] [address] [id number] [address] [place] [address], [place] [address] Aug, [facility] [address] [id number] [address] [place] [address], [place] [address] Aug, [facility] [address] [id number] [address] [place] [address], [place] [address] Aug, [facility] [address] [id number] [address] [place] [address], [place] [address] Aug, [facility] [address] [id number] [address] [place] [address], [place] [address] Aug, [facility] [address] [id number] [address] [place] [address], [place] [address] Jul, [facility] [address] [id number] [address] [place] [address], [place] [address] Jul, [facility] [address] [id number] [address] [place] [address], [place] [address] Jun, [facility] [address] [id number] [address] [place] [address], [place] [address] Jun, [facility] [address] [id number] [address] [place] [address], [place] [address] May, [facility] [address] [id number] [address] [place] [address], [place] [address] May, [facility] [address] [id number] [address] [place] [address], [place] [address] Apr, [facility] [address] [id number] [address] [place] [address], [place] [address] Apr, [facility] [address] [id number] [address] [place] [address], [place] [address] Apr, [facility] [address] [id number] [address] [place] [address], [place] [address] Mar, [facility] [address] [id number] [address] [place] [address], [place] [address] Mar, [facility] [address] [id number] [address] [place] [address], [place] [address] Mar, [facility] [address] [id number] [address] [place] [address], [place] [address] Mar, [facility] [address] [id number] [address] [place] [address], [place] [address] Feb, [facility] [address] [id number] [address] [place] [address], [place] [address] Feb, [facility] [address] [id number] [address] [place] [address], [place] [address] Feb, [facility] [address] [id number] [address] [place] [address], [place] [address] Feb, [facility] [address] [id number] [address] [place] [address], [place] [address] Feb, [facility] [address] [id number] [address] [place] [address], [place] [address] Feb, [facility] [address] [id number] [address] [place] [address], [place] [address] Jan, [facility] [address] [id number] [address] [place] [address], [place] [address] Jan, [facility] [address] [id number] [address] [place] [address], [place] [address] Jan, [facility] [address] [id number] [address] [place] [address], [place] [address] Jan, [facility] [address] [id number] [address] [place] [address], [place] [address] December, [facility] [address] [id number] [address] [place] [address], [place] [address] December, [facility] [address] [id number] [address] [place] [address], [place] [address] December, [facility] [address] [id number] [address] [place] [address], [place] [address] December, [facility] [address] [id number] [address] [place] [address], [place] [address] December, [facility] [address] [id number] [address] [place] [address], [place] [address] December, [facility] [address] [id number] [address] [place] [address], [place] [address] December, [facility] [address] [id number] [address] [place] [address], [place] [address] December, [facility] [address] [id number] [address] [place] [address], [place] [address] December, [facility] [address] [id number] [address] [place] [address], [place] [address] December, [facility] [address] [id number] [address] [place] [address], [place] [address] Nov, [facility] [address] [id number] [address] [place] [address], [place] [address] Nov, [facility] [address] [id number] [facility] [place] [address] Oct, [facility] [address] [id number] [facility] [place] [address] Oct, [facility] [address] [id number] [facility] [place] [address] Oct, [facility] [address] [id number] [address] [place] [address], [place] [address] Oct, [facility] [address] [id number] [address] [place] [address], [place] [address] Oct, [facility] [address] [id number] [address] [place] [address], [place] [address] Oct, [facility] [address] [id number] [address] [place] [address], [place] [address] Aug, [facility] [address] [id number] [address] [place] [address], [place] [address] Aug, [facility] [address] [id number] [address] [place] [address], [place] [address] Aug, [facility] [address] [id number] [address] [place] [address], [place] [address] Aug, [facility] [address] [id number] [address] [place] [address], [place] [address] Aug, [facility] [address] [id number] [address] [place] [address], [place] [address] Aug, [facility] [address] [id number] [address] [place] [address], [place] [address] Aug, [facility] [address] [id number] [address] [place] [address], [place] [address] Aug, [facility] [address] [id number] [address] [place] [address], [place] [address] Jul, [facility] [address] [id number] [address] [place] [address], [place] [address] Jul, [facility] [address] [id number] [address] [place] [address], [place] [address] Jun, [facility] [address] [id number] [address] [place] [address], [place] [address] Jun, [facility] [address] [id number] [address] [place] [address], [place] [address] Jun, [facility] [address] [id number] [address] [place] [address], [place] [address] Jun, [facility] [address] [id number] [address] [place] [address], [place] [address] Jun, [facility] [address] [id number] [address] [place] [address], [place] [address] Jun, [facility] [address] [id number] [address] [place] [address], [place] [address] May, [facility] [address] [id number] [address] [place] [address], [place] [address] May, [facility] [address] [id number] [address] [place] [address], [place] [address] Apr, [facility] [address] [id number] [address] [place] [address], [place] [address] Apr, [facility] [address] [id number] [address] [place] [address], [place] [address] Mar, [facility] [address] [id number] [address] [place] [address], [place] [address] Mar, [facility] [address] [id number] [address] [place] [address], [place] [address] Mar, [facility] [address] [id number] [address] [place] [address], [place] [address] Feb, [facility] [address] [id number] [address] [place] [address], [place] [address] Jan, [facility] [address] [id number] [address] [place] [address], [place] [address] December, [facility] [address] [id number] [address] [place] [address], [place] [address] December, [facility] [address] [id number] [address] [place] [address], [place] [address] December, [facility] [address] [id number] [address] [place] [address], [place] [address] December, [facility] [address] [id number] [address] [place] [address], [place] [address] December, [facility] [address] [id number] [address] [place] [address], [place] [address] December, [facility] [address] [id number] [address] [place] [address], [place] [address] Nov, [facility] [address] [id number] [address] [place] [address], [place] [address] Nov, [facility] [address] [id number] [address] [place] [address], [place] [address] 08 Nov, 2012 [facility] [address] [id number] [address] [place] [address], [place] [address] 05 Oct, 2012 [facility] [address] [id number] [address] [place] [address], [place] [address] 14 Jun, 2012 [facility] [address] [id number] [address] [place] [address], [place] [address] 14 Jun, 2012 [facility] [address] [id number] [address] [place] [address], [place] [address] Jun, [facility] [address] [id number] [address] [place] [address], [place] [id number] Jun, [facility] [address] [id number] [address] [place] [address], [place] [id number] 18 Apr, 2012 [facility] [address] [id number] [address] [place] [address], [place] [id number] Mar, [facility] [address] [id number] [address] [place] [phone] Mar, [facility] [address] [id number] [address] [place] [id number] Jan, [facility] [address] [id number] [address] [place] [phone] December, [facility] [address] [id number] [address] [place] [id number] Nov, [facility] [address] [id number] [address] [place] [id number] Nov, [facility] [address] [id number] [address] [place] [phone] Nov, [facility] [address] [id number] [address] [place] [phone] Nov, [facility] [address] [id number] [address] [place] [phone] Aug, [facility] [address] [id number] [address] [place] [phone] Aug, [facility] [address] [id number] [address] [place] [id number] Jul, [facility] [address] [id number] [address] [place] [id number] Jun, [facility] [address] [id number] [address] [place] [id number] Jun, [facility] [address] [id number] [address] [place] [phone] Apr, [facility] [address] [id number] [address] [place] [phone] Feb, IMMUNIZATIONS No Known Immunizations SOCIAL HISTORY Never Assessed REASON FOR VISIT Controlled Med Refill 05/05/18 PLAN OF CARE VITAL SIGNS MEDICATIONS Medication Instructions Dosage Frequency Start Date End Date Duration S tatus Adderall XR 20 MG Orally Once a day 2 capsules in the morning 24h Mar, 28 days Active Ambien 10 MG Orally [...]
--- OUTSIDE RECORDS SUMMARY | 2020-02-11 01:34 | XMS REPORT ---
Author Author lEaine GALARZA Organization [facility] Address [address] [place] [address] Care Team Providers Care Briar Wood Sorter Name Role Phone MARI GALARZA Unavailable PROBLEMS Type Condition ICD9-CM Code EYA08-SG Code Onset Dates Condition S tatus SNOMED Code Problem Seasonal allergies J30.2 Active 4 37447638 Problem Essential hypertension I10 Active 54460309 Problem Major depressive disorder, recurrent episode, in full remission F33.42 Active 410209150 Problem Primary insomnia F51.01 Active 397 2004 Problem ADHD, predominantly inattentive type F90.0 Active [id number] ALLERGIES No Known Allergies ENCOUNTERS Encounter Location Date Diagnosis [place] [address] [place] [address] [id number] [address] [place] [phone] May, [place] [address] [place] [id number] [address] [place] [phone] Apr, ADHD, predominantly inattent randall type F90.0 [place] [address] [place] [id number] [address] [place] [phone] Apr, ADHD, predominantly inattent randall type F90.0 and Major depressive disorder, recurrent episode, in full remission F33.42 [facility] [address] [address] [id number] [address] [place] [phone] Mar, ADHD, predominantly inattent randall type F90.0 and Primary insomnia F51.01 [facility] [address] [place] [id number] [address] [place] [phone] Mar, [place] [address] [place] [id number] [address] [place] [phone] Mar, ADHD, predominantly inattent randall type F90.0 and Primary insomnia F51.01 [place] [id number] [facility] [id number] [address] [place] [phone] Feb, ADHD, predominantly inattent randall type F90.0 and Primary insomnia F51.01 [facility] [address] [facility] [id number] [address] [place] [phone] Jan, ADHD, predominantly inattent randall type F90.0 and Primary insomnia F51.01 [facility] [address] [facility] [id number] [address] [place] [phone] December, Seasonal allergies J30.2 and Post-nasal drip R09.82 [place] [address] [place] [id number] [address] [place] [phone] December, ADHD, predominantly inattent randall type F90.0 and Primary insomnia F51.01 [place] [address] [place] [id number] [address] [place] [phone] Nov, ADHD, predominantly inattent randall type F90.0 [place] [address] [place] [id number] [address] [place] [phone] Oct, ADHD, predominantly inattent randall type F90.0 [place] [address] [place] [id number] [address] [place] [phone] Oct, ADHD, predominantly inattent randall type F90.0 ; Primary insomnia F51.01 and Screening, lipid Z13.220 [place] [address] [place] [id number] [address] [place] [phone] Sep, ADHD, predominantly inattent randall type F90.0 [place] [address] [place] [id number] [address] [place] [phone] Aug, ADHD, predominantly inattent randall type F90.0 and Primary insomnia F51.01 [facility] [address] [facility] [id number] [address] [place] [phone] Jul, ADHD, predominantly inattent randall type F90.0 [place] [address] [place] [id number] [address] [place] [phone] Jul, Primary insomnia F51.01 and ADHD, predominantly inattentive type F90.0 [facility] [address] [id number] [address] [place] [phone] Jun, ADHD, predominantly inattent randall type F90.0 [facility] [address] [facility] [id number] [address] [place] [phone] May, ADHD, predominantly inattent randall type F90.0 [facility] [address] [id number] [address] [place] [phone] Apr, ADHD, predominantly inattent randall type F90.0 [facility] [address] [facility] [id number] [address] [place] [phone] Mar, ADHD, predominantly inattent randall type F90.0 ; Primary insomnia F51.01 ; Major depressive disorder, recurrent episode, in full remission F33.42 and Acne comedone L70.0 [facility] [address] [id number] [address] [place] [phone] Mar, Major depressive disorder, r ecurrent episode, in full remission F33.42 and ADHD, predominantly inattentive type F90.0 [facility] [address] [facility] [id number] [address] [place] [phone] Feb, ADHD, predominantly inattent randall type F90.0 [facility] [address] [facility] [id number] [address] [place] [phone] Feb, Primary insomnia F51.01 [facility] [address] [facility] [id number] [address] [place] [phone] Jan, ADHD, predominantly inattent randall type F90.0 and Primary insomnia F51.01 [facility] [address] [facility] [id number] [address] [place] [phone] December, ADHD, predominantly inattent randall type F90.0 and Primary insomnia F51.01 [facility] [address] [id number] [address] [place] [phone] Oct, ADHD, predominantly inattent randall type F90.0 and Primary insomnia F51.01 [facility] [address] [facility] [id number] [address] [place] [phone] Sep, ADHD, predominantly inattent randall type F90.0 and Primary insomnia F51.01 [place] [address] [place] [id number] [address] [place] [id number] Aug, ADHD, predominantly inattent randall type F90.0 and Primary insomnia F51.01 [place] [address] [facility] [id number] [address] [place] [id number] Jul, Major depressive disorder, r ecurrent episode, in full remission F33.42 ; ADHD, predominantly inattentive type F90.0 ; Primary insomnia F51.01 ; Acute non-recurrent maxillary sinusitis J01.00 and Screening, lipid Z13.220 [facility] [address] [place] [address] [id number] [place] [phone] Jun, Acute non-recurrent maxillar y sinusitis J01.00 [place] [address] [facility] [id number] [address] [place] [id number] Jun, ADHD, predominantly inattent randall type F90.0 [facility] [address] [place] [id number] [address] [place] [phone] May, [facility] [address] [place] [id number] [address] [place] [phone] Apr, [facility] [address] [facility] [id number] [address] [place] [phone] Feb, Rash R21 and Scabies B86 [place] [address] [place] [id number] [address] [place] [phone] Feb, ADHD, predominantly inattent randall type F90.0 and Major depressive disorder, recurrent episode, in full remission F33.42 [place] [address] [place] [id number] [address] [place] [phone] Feb, [facility] [address] [id number] [address] [place] [phone] Oct, [facility] [address] [id number] [address] [place] [phone] Sep, [facility] [address] [id number] [address] [place] [phone] Sep, [facility] [address] [id number] [address] [place] [phone] Aug, [facility] [address] [id number] [address] [place] [phone] Jul, [facility] [address] [facility] [id number] [address] [place] [phone] Jun, [facility] [address] [id number] [address] [place] [phone] May, [facility] [address] [facility] [id number] [address] [place] [phone] May, ADHD, predominantly inattent randall type F90.0 and Major depressive disorder, recurrent episode, in full remission F33.42 [facility] [address] [facility] [id number] [address] [place] [phone] Feb, Major depressive disorder, r ecurrent episode, moderate 296.32 [facility] [address] [facility] [id number] [address] [place] [phone] Feb, [facility] [address] [id number] [address] [place] [phone] Jan, [facility] [address] [facility] [id number] [address] [place] [phone] Jan, [facility] [address] [facility] [id number] [address] [place] [phone] December, [facility] [address] [facility] [id number] [address] [place] [id number] Nov, [facility] [address] [id number] [address] [place] [address], [place] [address] Nov, [facility] [address] [id number] [address] [place] [address], [place] [address] Oct, [facility] [address] [id number] [address] [place] [address], [place] [address] Oct, [facility] [address] [id number] [address] [place] [address], [place] [address] Sep, [facility] [address] [id number] [address] [place] [address], [place] [address] Sep, [facility] [address] [id number] [address] [place] [address], [place] [address] Sep, [facility] [address] [id number] [address] [place] [address], [place] [address] Sep, [facility] [address] [id number] [address] [place] [address], [place] [address] Aug, [facility] [address] [id number] [address] [place] [address], [place] [address] Aug, [facility] [address] [id number] [address] [place] [address], [place] [address] Aug, [facility] [address] [id number] [address] [place] [address], [place] [address] Aug, [facility] [address] [id number] [address] [place] [phone] Aug, [facility] [address] [id number] [address] [place] [address], [place] [address] Aug, [facility] [address] [id number] [address] [place] [address], [place] [address] Jul, [facility] [address] [id number] [address] [place] [address], [place] [address] Jul, [facility] [address] [id number] [address] [place] [address], [place] [address] Jun, [facility] [address] [id number] [address] [place] [address], [place] [address] Jun, [facility] [address] [id number] [address] [place] [address], [place] [address] May, [facility] [address] [id number] [address] [place] [address], [place] [address] May, [facility] [address] [id number] [address] [place] [address], [place] [address] Apr, [facility] [address] [id number] [address] [place] [address], [place] [address] Apr, [facility] [address] [id number] [address] [place] [address], [place] [address] Apr, [facility] [address] [id number] [address] [place] [address], [place] [address] Mar, [facility] [address] [id number] [address] [place] [address], [place] [address] Mar, [facility] [address] [id number] [address] [place] [address], [place] [address] Mar, [facility] [address] [id number] [address] [place] [address], [place] [address] Mar, [facility] [address] [id number] [address] [place] [address], [place] [address] Feb, [facility] [address] [id number] [address] [place] [address], [place] [address] Feb, [facility] [address] [id number] [address] [place] [address], [place] [address] Feb, [facility] [address] [id number] [address] [place] [address], [place] [address] Feb, [facility] [address] [id number] [address] [place] [address], [place] [address] Feb, [facility] [address] [id number] [facility] [place] [address] Feb, [facility] [address] [id number] [facility] [place] [address] Jan, [facility] [address] [id number] [facility] [address] Jan, [facility] [address] [id number] [address] [place] [address], [place] [address] Jan, [facility] [address] [id number] [address] [place] [address], [place] [address] Jan, [facility] [address] [id number] [address] [place] [address], [place] [address] December, [facility] [address] [id number] [address] [place] [address], [place] [address] December, [facility] [address] [id number] [address] [place] [address], [place] [address] December, [facility] [address] [id number] [address] [place] [address], [place] [address] December, [facility] [address] [id number] [address] [place] [address], [place] [address] December, [facility] [address] [id number] [address] [place] [address], [place] [address] December, [facility] [address] [id number] [address] [place] [address], [place] [address] December, [facility] [address] [id number] [address] [place] [address], [place] [address] December, [facility] [address] [id number] [address] [place] [address], [place] [address] December, [facility] [address] [id number] [address] [place] [address], [place] [address] December, [facility] [address] [id number] [address] [place] [address], [place] [address] Nov, [facility] [address] [id number] [address] [place] [address], [place] [address] Nov, [facility] [address] [id number] [address] [place] [address], [place] [address] Oct, [facility] [address] [id number] [address] [place] [address], [place] [address] Oct, [facility] [address] [id number] [address] [place] [address], [place] [address] Oct, [facility] [address] [id number] [address] [place] [address], [place] [address] Oct, [facility] [address] [id number] [address] [place] [address], [place] [address] Oct, [facility] [address] [id number] [address] [place] [address], [place] [address] Oct, [facility] [address] [id number] [address] [place] [address], [place] [address] Aug, [facility] [address] [id number] [address] [place] [address], [place] [address] Aug, [facility] [address] [id number] [address] [place] [address], [place] [address] Aug, [facility] [address] [id number] [address] [place] [address], [place] [address] Aug, [facility] [address] [id number] [address] [place] [address], [place] [address] Aug, [facility] [address] [id number] [address] [place] [address], [place] [address] Aug, [facility] [address] [id number] [address] [place] [address], [place] [address] Aug, [facility] [address] [id number] [address] [place] [address], [place] [address] Aug, [facility] [address] [id number] [address] [place] [address], [place] [address] 05 Jul, [address] [facility] [address] [id number] [address] [place] [address], [place] [address] 05 Jul, [address] [facility] [address] [id number] [address] [place] [address], [place] [address] Jun, [facility] [address] [id number] [address] [place] [address], [place] [address] Jun, [facility] [address] [id number] [address] [place] [address], [place] [address] Jun, [facility] [address] [id number] [address] [place] [address], [place] [address] Jun, [facility] [address] [id number] [address] [place] [address], [place] [address] Jun, [facility] [address] [id number] [address] [place] [address], [place] [address] Jun, [facility] [address] [id number] [address] [place] [address], [place] [address] May, [facility] [address] [id number] [address] [place] [address], [place] [address] May, [facility] [address] [id number] [address] [place] [address], [place] [address] 16 Apr, 2013 [facility] [address] [id number] [address] [place] [address], [place] [address] Apr, [facility] [address] [id number] [address] [place] [address], [place] [address] Mar, [facility] [address] [id number] [address] [place] [address], [place] [address] Mar, [facility] [address] [id number] [address] [place] [address], [place] [address] Mar, [facility] [address] [id number] [address] [place] [address], [place] [address] Feb, [facility] [address] [id number] [address] [place] [address], [place] [address] Jan, [facility] [address] [id number] [address] [place] [address], [place] [address] December, [facility] [address] [id number] [address] [place] [address], [place] [address] December, [facility] [address] [id number] [address] [place] [address], [place] [address] December, [facility] [address] [id number] [address] [place] [address], [place] [address] December, [facility] [address] [id number] [address] [place] [address], [place] [address] December, [facility] [address] [id number] [address] [place] [address], [place] [address] December, [facility] [address] [id number] [address] [place] [address], [place] [address] Nov, [facility] [address] [id number] [address] [place] [address], [place] [address] Nov, [facility] [address] [id number] [address] [place] [address], [place] [address] Nov, [facility] [address] [id number] [address] [place] [address], [place] [address] Oct, [facility] [address] [id number] [address] [place] [address], [place] [address] Jun, [facility] [address] [id number] [address] [place] [address], [place] [address] Jun, [facility] [address] [id number] [address] [place] [address], [place] [address] Jun, [facility] [address] [id number] [address] [place] [address], [place] [address] Jun, [facility] [address] [id number] [address] [place] [id number] Apr, [facility] [place] [address] [id number] [address] [place] [address], [place] [address] Mar, [facility] [place] [address] [id number] [address] [place] [id number] Mar, [facility] [place] [address] [id number] [address] [place] [address], [place] [address] Jan, [facility] [address] [id number] [address] [place] [address], [place] [address] December, [facility] [place] [address] [id number] [address] [place] [address], [place] [address] Nov, [facility] [place] [address] [id number] [address] [place] [address], [place] [address] Nov, [facility] [place] [address] [id number] [address] [place] [address], [place] [id number] Nov, [facility] [place] [address] [id number] [address] [place] [address], [place] [address] Nov, [facility] [place] [address] [id number] [address] [place] [id number] Aug, [facility] [place] [address] [id number] [address] [place] [id number] Aug, [facility] [place] [address] [id number] [address] [place] [id number] Jul, [facility] [place] [address] [id number] [address] [place] [id number] Jun, [facility] [place] [address] [id number] [address] [place] [phone] Jun, [facility] [place] [address] [id number] [address] [place] [id number] 14 Apr, 2011 [facility] [place] [address] [id number] [address] [place] [id number] Feb, IMMUNIZATIONS No Known Immunizations SOCIAL HISTORY Never Assessed REASON FOR VISIT ADHD, feels that the adderall is not working well for her. --YISSEL Taylor PLAN OF CARE Activity Details Follow Up 4 Weeks Reason:ADD VITAL SIGNS Height 64 in 2018-05-09 Weight 176.4 lbs 2018-05-09 Temperature 97.8 degrees Fahrenheit 2018-05-09 Heart Rate 82 bpm 2018-05-09 Respiratory Rate 18 2018-05-09 BMI 30.28 kg/m2 2018-05-09 Blood pressure systolic 164 mmHg 2018-05-09 Blood pressure diastolic 94 mmHg 2018-05-09 MEDICATIONS Medication Instructions Dosage Frequency Start Date End Date Duration S tatus Effexor XR 150 MG Orally Once a day 2 capsules 24h Aug, 90 days Active Concerta 54 MG Orally Once a day 1 tablet in the morning 24h 1 0 Apr, 2018 May, 28 days Active Ambien 10 MG Orally [...]
--- OUTSIDE RECORDS SUMMARY | 2020-02-11 01:34 | XMS REPORT ---
Author Author Elaine GALARZA Organization [facility] Address [address] [place] [address] Care Team Providers Care Finished Stock Inspector Name Role Phone MARI GALARZA Unavailable PROBLEMS Type Condition ICD9-CM Code [id number] Code Onset Dates Condition S tatus SNOMED Code Problem Moderate episode of recurrent major depressive disorder F33.1 Active 041448985 Problem Seasonal allergies J30.2 Active 4 77719204 Problem ADHD, predominantly inattentive type F90.0 Active 37277721 Problem Major depressive disorder, recurrent episode, in full remission F33.42 Active 201670963 Problem Essential hypertension I10 Active 83370313 Problem Primary insomnia F51.01 Active 397 2004 ALLERGIES No Known Allergies ENCOUNTERS Encounter Location Date Diagnosis [place] [address] [facility] [id number] [address] [place] [id number] Jun, [place] [address] [facility] [id number] [address] [place] [id number] May, ADHD, predominantly inattent randall type F90.0 ; Moderate episode of recurrent major depressive disorder F33.1 and Therapeutic drug monitoring Z51.81 [place] [address] [place] [id number] [address] [place] [address] May, [place] [address] [facility] [id number] [address] [place] [address] Apr, ADHD, predominantly inattent randall type F90.0 [place] [address] [facility] [id number] [address] [place] [id number] Apr, ADHD, predominantly inattent randall type F90.0 and Major depressive disorder, recurrent episode, in full remission F33.42 [facility] [address] [facility] [id number] [address] [place] [address] Mar, ADHD, predominantly inattent randall type F90.0 and Primary insomnia F51.01 [facility] [address] [facility] [id number] [address] [place] [address] Mar, [facility] [address] [facility] [id number] [address] [place] [address] Mar, ADHD, predominantly inattent randall type F90.0 and Primary insomnia F51.01 [place] [address] [place] [id number] [address] [place] [address] Feb, ADHD, predominantly inattent randall type F90.0 and Primary insomnia F51.01 [place] [address] [place] [id number] [address] [place] [address] Jan, ADHD, predominantly inattent randall type F90.0 and Primary insomnia F51.01 [facility] [address] [place] [id number] [address] [place] [address] December, Seasonal allergies J30.2 and Post-nasal drip R09.82 [facility] [address] [place] [id number] [address] [place] [address] December, ADHD, predominantly inattent randall type F90.0 and Primary insomnia F51.01 [facility] [address] [place] [id number] [address] [place] [address] Nov, ADHD, predominantly inattent randall type F90.0 [facility] [address] [place] [id number] [address] [place] [address] Oct, ADHD, predominantly inattent randall type F90.0 [facility] [address] [place] [id number] [address] [place] [address] Oct, ADHD, predominantly inattent randall type F90.0 ; Primary insomnia F51.01 and Screening, lipid Z13.220 [facility] [address] [place] [id number] [address] [place] [address] Sep, ADHD, predominantly inattent randall type F90.0 [facility] [address] [id number] [address] [place] [address] Aug, ADHD, predominantly inattent randall type F90.0 and Primary insomnia F51.01 [facility] [address] [id number] [address] [place] [address] Jul, ADHD, predominantly inattent randall type F90.0 [facility] [address] [id number] [address] [place] [address] Jul, Primary insomnia F51.01 and ADHD, predominantly inattentive type F90.0 [facility] [address] [id number] [address] [place] [address] Jun, ADHD, predominantly inattent randall type F90.0 [facility] [address] [facility] [id number] [address] [place] [address] May, ADHD, predominantly inattent randall type F90.0 [facility] [address] [id number] [address] [place] [address] Apr, ADHD, predominantly inattent randall type F90.0 [facility] [address] [id number] [address] [place] [address] Mar, ADHD, predominantly inattent randall type F90.0 ; Primary insomnia F51.01 ; Major depressive disorder, recurrent episode, in full remission F33.42 and Acne comedone L70.0 [facility] [address] [id number] [address] [place] [address] Mar, Major depressive disorder, r ecurrent episode, in full remission F33.42 and ADHD, predominantly inattentive type F90.0 [facility] [address] [id number] [address] [place] [address] Feb, ADHD, predominantly inattent randall type F90.0 [facility] [address] [facility] [id number] [address] [place] [address] Feb, Primary insomnia F51.01 [facility] [address] [facility] [id number] [address] [place] [address] Jan, ADHD, predominantly inattent randall type F90.0 and Primary insomnia F51.01 [facility] [address] [facility] [id number] [address] [place] [address] December, ADHD, predominantly inattent randall type F90.0 and Primary insomnia F51.01 [place] [address] [facility] [id number] [address] [place] [address] Oct, ADHD, predominantly inattent randall type F90.0 and Primary insomnia F51.01 [place] [address] [facility] [id number] [address] [place] [address] Sep, ADHD, predominantly inattent randall type F90.0 and Primary insomnia F51.01 [place] [address] [place] [id number] [address] [place] [address] Aug, ADHD, predominantly inattent randall type F90.0 and Primary insomnia F51.01 [place] [address] [place] [id number] [address] [place] [address] Jul, Major depressive disorder, r ecurrent episode, in full remission F33.42 ; ADHD, predominantly inattentive type F90.0 ; Primary insomnia F51.01 ; Acute non-recurrent maxillary sinusitis J01.00 and Screening, lipid Z13.220 [facility] [place] [id number] [address] [place] [address] Jun, Acute non-recurrent maxillar y sinusitis J01.00 [place] [address] [facility] [id number] [address] [place] [address] Jun, ADHD, predominantly inattent randall type F90.0 [place] [address] [facility] [id number] [address] [place] [phone] May, [facility] [address] [place] [id number] [address] [place] [phone] 07 Apr, 2016 [facility] [address] [id number] [address] [place] [phone] 07 Feb, 2016 Rash R21 and Scabies B86 [facility] [address] [id number] [address] [place] [address] Feb, ADHD, predominantly inattent randall type F90.0 and Major depressive disorder, recurrent episode, in full remission F33.42 [facility] [address] [id number] [address] [place] [address] Feb, [facility] [address] [id number] [address] [place] [address] Oct, [facility] [address] [id number] [address] [place] [phone] Sep, [facility] [address] [id number] [address] [place] [id number] Sep, [facility] [address] [id number] [address] [place] [address] Aug, [facility] [address] [id number] [address] [place] [phone] Jul, [facility] [address] [id number] [address] [place] [address] Jun, [facility] [address] [id number] [address] [place] [address] May, [facility] [address] [id number] [address] [place] [address] May, ADHD, predominantly inattent randall type F90.0 and Major depressive disorder, recurrent episode, in full remission F33.42 [facility] [address] [id number] [address] [place] [address] Feb, Major depressive disorder, r ecurrent episode, moderate 296.32 [facility] [address] [id number] [address] [place] [address] Feb, [facility] [address] [id number] [address] [place] [address], [place] [id number] Jan, [facility] [address] [id number] [address] [place] [address], [place] [address] Jan, [facility] [address] [id number] [address] [place] [address], [place] [address] December, [facility] [address] [id number] [address] [place] [address], [place] [address] Nov, [facility] [address] [id number] [address] [place] [address], [place] [address] Nov, [facility] [address] [id number] [address] [place] [address], [place] [address] Oct, [facility] [address] [id number] [address] [place] [address], [place] [phone] Oct, [facility] [address] [id number] [address] [place] [address], [place] [address] Sep, [facility] [address] [id number] [address] [place] [address], [place] [address] Sep, [facility] [address] [id number] [address] [place] [address], [place] [id number] Sep, [facility] [address] [id number] [address] [place] [address], [place] [id number] Sep, [facility] [address] [id number] [address] [place] [address], [place] [address] Aug, [facility] [address] [id number] [address] [place] [address], [place] [id number] Aug, [facility] [address] [id number] [address] [place] [address], [place] [address] Aug, [facility] [address] [id number] [address] [place] [address], [place] [address] Aug, [facility] [address] [id number] [address] [place] [address], [place] [address] Aug, [facility] [address] [id number] [address] [place] [address], [place] [address] Aug, [facility] [address] [id number] [address] [place] [address], [place] [id number] Jul, [facility] [address] [id number] [address] [place] [address], [place] [address] Jul, [facility] [address] [id number] [address] [place] [address], [place] [address] Jun, [facility] [address] [id number] [address] [place] [address], [place] [address] Jun, [facility] [address] [id number] [address] [place] [address], [place] [address] May, [facility] [address] [id number] [address] [place] [address], [place] [id number] May, [facility] [address] [id number] [address] [place] [address], [place] [address] Apr, [facility] [address] [id number] [address] [place] [address], [place] [address] Apr, [facility] [address] [id number] [address] [place] [address], [place] [address] Apr, [facility] [address] [id number] [address] [place] [address], [place] [address] Mar, [facility] [address] [id number] [address] [place] [address], [place] [address] Mar, [facility] [address] [id number] [address] [place] [address], [place] [address] Mar, [facility] [address] [id number] [address] [place] [address], [place] [address] Mar, [facility] [address] [id number] [address] [place] [address], [place] [id number] Feb, [facility] [address] [id number] [address] [place] [id number] Feb, [facility] [address] [id number] [facility] [place] [id number] Feb, [facility] [address] [id number] [address] [place] [address], [place] [address] Feb, [facility] [address] [id number] [address] [place] [address], [place] [id number] Feb, [facility] [address] [id number] [address] [place] [address], [place] [address] Feb, [facility] [address] [id number] [address] [place] [address], [place] [address] Jan, [facility] [address] [id number] [address] [place] [address], [place] [address] Jan, [facility] [address] [id number] [address] [place] [address], [place] [address] Jan, [facility] [address] [id number] [address] [place] [address], [place] [address] Jan, [facility] [address] [id number] [address] [place] [address], [place] [address] December, [facility] [address] [id number] [address] [place] [address], [place] [address] December, [facility] [address] [id number] [address] [place] [address], [place] [address] December, [facility] [address] [id number] [address] [place] [address], [place] [address] December, [facility] [address] [id number] [address] [place] [address], [place] [address] December, [facility] [address] [id number] [address] [place] [address], [place] [address] December, [facility] [address] [id number] [address] [place] [address], [place] [address] December, [facility] [address] [id number] [facility] [place] [address] December, [facility] [address] [id number] [facility] [place] [address] December, [facility] [address] [id number] [facility] [place] [address] December, [facility] [address] [id number] [address] [place] [address], [place] [address] Nov, [facility] [address] [id number] [address] [place] [address], [place] [address] Nov, [facility] [address] [id number] [address] [place] [address], [place] [address] Oct, [facility] [address] [id number] [address] [place] [address], [place] [address] Oct, [facility] [address] [id number] [address] [place] [address], [place] [address] Oct, [facility] [address] [id number] [address] [place] [address], [place] [address] Oct, [facility] [address] [id number] [address] [place] [address], [place] [id number] Oct, [facility] [address] [id number] [address] [place] [address], [place] [address] Oct, [facility] [address] [id number] [address] [place] [address], [place] [address] Aug, [facility] [address] [id number] [address] [place] [address], [place] [address] Aug, [facility] [address] [id number] [address] [place] [address], [place] [address] Aug, [facility] [address] [id number] [address] [place] [address], [place] [address] Aug, [facility] [address] [id number] [address] [place] [address] [address] Aug, [facility] [address] [id number] [address] [place] [address], [place] [address] Aug, [facility] [address] [id number] [address] [place] [address], [place] [address] Aug, [facility] [address] [id number] [address] [place] [address], [place] [address] Aug, [facility] [address] [id number] [address] [place] [address], [place] [address] Jul, [facility] [address] [id number] [address] [place] [address], [place] [address] Jul, [facility] [address] [id number] [address] [place] [address], [place] [address] Jun, [facility] [address] [id number] [address] [place] [address], [place] [address] Jun, [facility] [address] [id number] [address] [place] [address], [place] [address] Jun, [facility] [address] [id number] [address] [place] [address], [place] [address] Jun, [facility] [address] [id number] [address] [place] [address], [place] [address] Jun, [facility] [address] [id number] [address] [place] [address], [place] [address] Jun, [facility] [address] [id number] [address] [place] [address] May, [facility] [address] [id number] [address] [place] [address], [place] [id number] 03 May, 2013 [facility] [address] [id number] [address] [place] [address], [place] [address] 16 Apr, 2013 [facility] [address] [id number] [address] [place] [address], [place] [address] 12 Apr, 2013 [facility] [address] [id number] [address] [place] [address], [place] [address] Mar, [facility] [address] [id number] [address] [place] [address], [place] [id number] Mar, [facility] [address] [id number] [address] [place] [address], [place] [address] Mar, [facility] [address] [id number] [address] [place] [address], [place] [address] Feb, [facility] [address] [id number] [address] [place] [address], [place] [address] Jan, [facility] [address] [id number] [address] [place] [address], [place] [address] December, [facility] [address] [id number] [address] [place] [address], [place] [address] December, [facility] [address] [id number] [address] [place] [address], [place] [address] December, [facility] [address] [id number] [address] [place] [address], [place] [address] December, [facility] [address] [id number] [address] [place] [address], [place] [address] December, [facility] [address] [id number] [address] [place] [address], [place] [address] December, [facility] [address] [id number] [address] [place] [address], [place] [address] Nov, [facility] [address] [id number] [address] [place] [address], [place] [address] Nov, [facility] [address] [id number] [address] [place] [address], [place] [address] Nov, [facility] [address] [id number] [address] [place] [address], [place] [address] Oct, [facility] [address] [id number] [address] [place] [address], [place] [id number] 14 Jun, 2012 [facility] [address] [id number] [address] [place] [address], [place] [id number] 14 Jun, 2012 [facility] [address] [id number] [address] [place] [address], [place] [address] Jun, [facility] [address] [id number] [address] [place] [address], [place] [id number] Jun, [facility] [address] [id number] [address] [place] [address], [place] [id number] Apr, [facility] [address] [id number] [address] [place] [address], [place] [id number] Mar, [facility] [address] [id number] [address] [place] [address], [place] [id number] Mar, [facility] [address] [id number] [address] [place] [address], [place] [id number] Jan, [facility] [address] [id number] [address] [place] [address], [place] [id number] December, [facility] [address] [id number] [address] [place] [address], [place] [id number] Nov, [facility] [address] [id number] [address] [place] [address], [place] [id number] Nov, [facility] [address] [id number] [address] [place] [address], [place] [id number] Nov, [facility] [address] [id number] [address] [place] [address], [place] [id number] Nov, [facility] [address] [id number] [address] [place] [address], [place] [id number] Aug, [facility] [address] [id number] [address] [place] [address], [place] [id number] Aug, [facility] [address] [id number] [address] [place] [address], [place] [id number] Jul, [facility] [address] [id number] [address] [place] [address], [place] [id number] 09 Jun, 2011 [facility] [address] [facility] [id number] [address] [address] Jun, [facility] [address] [facility] [id number] [address] [place] [id number] Apr, [facility] [address] [facility] [id number] [address] [place] [address] Feb, IMMUNIZATIONS No Known Immunizations SOCIAL HISTORY Never Assessed REASON FOR VISIT ADHD Pt in for follow up, on medications states that the Concerta is not helpin g and makes her feel different YISSEL Taylor PLAN OF CARE Activity Details Follow Up 4 Weeks Reason:ADHD Pending Test PDM - 09 PANEL (PROFILE 1) VITAL SIGNS Height 64 in 2018-06-27 Weight 185.5 lbs 2018-06-27 Temperature 98.2 degrees Fahrenheit 2018-06-27 Heart Rate 98 bpm 2018-06-27 Respiratory Rate 18 2018-06-27 BMI 31.84 kg/m2 2018-06-27 Blood pressure systolic 128 mmHg 2018-06-27 Blood pressure diastolic 82 mmHg 2018-06-27 MEDICATIONS Medication Instructions Dosage Frequency Start Date End Date Duration S tatus Dexmethylphenidate HCl ER 40 MG Orally Once a day 1 capsule in the morning 24h May, Jun, 28 days Active Effexor XR 150 MG Orally Once a day 2 capsules 24h Aug, 90 days Active Ambien 10 MG Orally Once a day 1 tablet at bedtime as needed 24h Jul, 28 days Active RESULTS No Results PROCEDURES Procedure Date Ordered Result Body Site 09 PANEL (PROFILE 1) Jun 27, 2018 INSTRUCTIONS MEDICATIONS ADMINISTERED No Known Medications MEDICAL (GENERAL) HISTORY Type Description Date Medical History Hypertension Medical History ADHD Medical History depression Medical History anxiety Surgical History section Surgical History collar bone repair
--- OUTSIDE RECORDS SUMMARY | 2020-02-11 01:34 | XMS REPORT ---
Author Author Elaine GALARZA Organization [facility] Address [address] [place] [address] Care Team Providers Care Cleaning Custodian Name Role Phone MARI GALARZA Unavailable PROBLEMS Type Condition ICD9-CM Code CDA16-PC Code Onset Dates Condition S tatus SNOMED Code Problem Seasonal allergies J30.2 Active 4 93943266 Problem Essential hypertension I10 Active 84410761 Problem Major depressive disorder, recurrent episode, in full remission F33.42 Active 680337417 Problem Primary insomnia F51.01 Active 397 2004 Problem ADHD, predominantly inattentive type F90.0 Active [id number] ALLERGIES No Information ENCOUNTERS Encounter Location Date Diagnosis [place] [id number] [facility] [id number] [address] [place] [address] May, [facility] [address] [facility] [id number] [address] [place] [address] May, [facility] [address] [facility] [id number] [address] [place] [address] Apr, ADHD, predominantly inattent randall type F90.0 [facility] [address] [facility] [id number] [address] [place] [address] Apr, ADHD, predominantly inattent randall type F90.0 and Major depressive disorder, recurrent episode, in full remission F33.42 [facility] [address] [facility] [id number] [address] [place] [address] Mar, ADHD, predominantly inattent randall type F90.0 and Primary insomnia F51.01 [facility] [address] [facility] [id number] [address] [place] [address] Mar, [facility] [address] [facility] [id number] [address] [place] [address] Mar, ADHD, predominantly inattent randall type F90.0 and Primary insomnia F51.01 [facility] [address] [facility] [id number] [address] [place] [address] Feb, ADHD, predominantly inattent randall type F90.0 and Primary insomnia F51.01 [facility] [address] [place] [id number] [address] [place] [address] Jan, ADHD, predominantly inattent randall type F90.0 and Primary insomnia F51.01 [facility] [address] [facility] [id number] [address] [place] [address] December, Seasonal allergies J30.2 and Post-nasal drip R09.82 [facility] [address] [place] [id number] [address] [place] [address] December, ADHD, predominantly inattent randall type F90.0 and Primary insomnia F51.01 [place] [address] [place] [id number] [address] [place] [address] Nov, ADHD, predominantly inattent randall type F90.0 [place] [address] [place] [id number] [address] [place] [address] Oct, ADHD, predominantly inattent randall type F90.0 [place] [address] [place] [id number] [address] [place] [address] Oct, ADHD, predominantly inattent randall type F90.0 ; Primary insomnia F51.01 and Screening, lipid Z13.220 [place] [address] [facility] [id number] [address] [place] [address] Sep, ADHD, predominantly inattent randall type F90.0 [place] [address] [place] [id number] [address] [place] [address] Aug, ADHD, predominantly inattent randall type F90.0 and Primary insomnia F51.01 [place] [address] [place] [id number] [address] [place] [address] Jul, ADHD, predominantly inattent randall type F90.0 [facility] [address] [id number] [address] [place] [address] Jul, Primary insomnia F51.01 and ADHD, predominantly inattentive type F90.0 [facility] [address] [id number] [address] [place] [address] Jun, ADHD, predominantly inattent randall type F90.0 [facility] [address] [id number] [address] [place] [address] May, ADHD, predominantly inattent randall type F90.0 [facility] [address] [id number] [address] [place] [address] Apr, ADHD, predominantly inattent randall type F90.0 [facility] [address] [id number] [address] [place] [address] Mar, ADHD, predominantly inattent randall type F90.0 ; Primary insomnia F51.01 ; Major depressive disorder, recurrent episode, in full remission F33.42 [address] [facility] [address] [id number] [address] [place] [address] Mar, Major depressive disorder, r ecurrent episode, in full remission F33.42 and ADHD, predominantly inattentive type F90.0 [facility] [address] [id number] [address] [place] [address] Feb, ADHD, predominantly inattent randall type F90.0 [facility] [address] [id number] [address] [place] [address] Feb, Primary insomnia F51.01 [facility] [address] [facility] [id number] [address] [place] [address] Jan, ADHD, predominantly inattent randall type F90.0 and Primary insomnia F51.01 [facility] [address] [facility] [id number] [address] [place] [address] December, ADHD, predominantly inattent randall type F90.0 and Primary insomnia F51.01 [facility] [address] [id number] [address] [place] [address] Oct, ADHD, predominantly inattent randlal type F90.0 and Primary insomnia F51.01 [facility] [address] [id number] [address] [place] [address] Sep, ADHD, predominantly inattent randall type F90.0 and Primary insomnia F51.01 [facility] [address] [id number] [address] [place] [address] Aug, ADHD, predominantly inattent randall type F90.0 and Primary insomnia F51.01 [place] [address] [id number] [address] [place] [address] Jul, Major depressive disorder, r ecurrent episode, in full remission F33.42 ; ADHD, predominantly inattentive type F90.0 ; Primary insomnia F51.01 ; Acute non-recurrent maxillary sinusitis J01.00 and Screening, lipid Z13.220 [facility] [address] [id number] [address] [place] [address] Jun, Acute non-recurrent maxillar y sinusitis J01.00 [facility] [address] [id number] [address] [place] [address] Jun, ADHD, predominantly inattent randall type F90.0 [facility] [address] [id number] [address] [place] [address] May, [facility] [address] [id number] [address] [place] [address] Apr, [facility] [address] [id number] [address] [place] [address] Feb, Rash R21 and Scabies B86 [facility] [address] [facility] [id number] [address] [place] [address] Feb, ADHD, predominantly inattent randall type F90.0 and Major depressive disorder, recurrent episode, in full remission F33.42 [facility] [address] [id number] [address] [place] [address] Feb, [facility] [address] [id number] [address] [place] [address] Oct, [facility] [address] [id number] [address] [place] [address] Sep, [facility] [address] [id number] [address] [place] [address] Sep, [facility] [address] [id number] [address] [place] [address] Aug, [facility] [address] [id number] [address] [place] [address] Jul, [facility] [address] [id number] [address] [place] [address] Jun, [facility] [address] [id number] [address] [place] [address] May, [facility] [address] [id number] [address] [place] [address] May, ADHD, predominantly inattent randall type F90.0 and Major depressive disorder, recurrent episode, in full remission F33.42 [facility] [address] [id number] [address] [place] [address] Feb, Major depressive disorder, r ecurrent episode, moderate 296.32 [facility] [address] [id number] [address] [place] [address] Feb, [facility] [address] [id number] [address] [place] [address] Jan, [facility] [address] [id number] [address] [place] [address] Jan, [facility] [address] [facility] [id number] [address] [place] [address] December, [facility] [address] [id number] [address] [place] [address], [place] [address] Nov, [facility] [address] [id number] [address] [place] [address], [place] [address] Nov, [facility] [address] [id number] [address] [place] [address], [place] [address] Oct, [facility] [address] [id number] [address] [place] [address], [place] [address] Oct, [facility] [address] [id number] [address] [place] [address], [place] [address] Sep, [facility] [address] [id number] [address] [place] [address], [place] [address] Sep, [facility] [address] [id number] [address] [place] [address], [place] [address] Sep, [facility] [address] [id number] [address] [place] [address], [place] [address] Sep, [facility] [address] [id number] [address] [place] [address], [place] [address] Aug, [facility] [address] [id number] [address] [place] [address], [place] [address] Aug, [facility] [address] [id number] [address] [place] [address], [place] [address] Aug, [facility] [address] [id number] [address] [place] [address] Aug, [facility] [address] [id number] [address] [place] [address], [place] [address] Aug, [facility] [address] [id number] [address] [place] [address], [place] [address] Aug, [facility] [address] [id number] [address] [place] [address], [place] [address] Jul, [facility] [address] [id number] [address] [place] [address], [place] [address] Jul, [facility] [address] [id number] [address] [place] [address], [place] [address] Jun, [facility] [address] [id number] [address] [place] [address], [place] [address] Jun, [facility] [address] [id number] [address] [place] [address], [place] [address] May, [facility] [address] [id number] [address] [place] [address], [place] [address] May, [facility] [address] [id number] [address] [place] [address], [place] [address] Apr, [facility] [address] [id number] [address] [place] [address], [place] [address] Apr, [facility] [address] [id number] [address] [place] [address], [place] [address] Apr, [facility] [address] [id number] [address] [place] [address], [place] [address] Mar, [facility] [address] [id number] [address] [place] [address], [place] [address] Mar, [facility] [address] [id number] [address] [place] [address], [place] [address] Mar, [facility] [address] [id number] [address] [place] [address], [place] [address] Mar, [facility] [address] [id number] [address] [place] [address], [place] [address] Feb, [facility] [address] [id number] [address] [place] [address], [place] [address] Feb, [facility] [address] [id number] [address] [place] [address], [place] [address] Feb, [facility] [address] [id number] [address] [place] [address], [place] [address] Feb, [facility] [address] [id number] [facility] [place] [address] Feb, [facility] [address] [id number] [facility] [place] [address] Feb, [facility] [address] [id number] [address] [place] [address], [place] [address] Jan, [facility] [address] [id number] [address] [place] [address], [place] [address] Jan, [facility] [address] [id number] [address] [place] [address], [place] [address] Jan, [facility] [address] [id number] [address] [place] [address], [place] [address] Jan, [facility] [address] [id number] [address] [place] [address], [place] [address] December, [facility] [address] [id number] [address] [place] [address], [place] [address] December, [facility] [address] [id number] [address] [place] [address], [place] [address] December, [facility] [address] [id number] [address] [place] [address], [place] [address] December, [facility] [address] [id number] [address] [place] [address], [place] [address] December, [facility] [address] [id number] [address] [place] [address], [place] [address] December, [facility] [address] [id number] [address] [place] [address], [place] [address] December, [facility] [address] [id number] [address] [place] [address], [place] [address] December, [facility] [address] [id number] [address] [place] [address], [place] [address] December, [facility] [address] [id number] [address] [place] [address], [place] [address] December, [facility] [address] [id number] [facility] [place] [address] Nov, [facility] [address] [id number] [address] [place] [address], [place] [address] Nov, [facility] [address] [id number] [address] [place] [address], [place] [address] Oct, [facility] [address] [id number] [address] [place] [address], [place] [address] Oct, [facility] [address] [id number] [address] [place] [address], [place] [address] Oct, [facility] [address] [id number] [address] [place] [address], [place] [address] Oct, [facility] [address] [id number] [address] [place] [address], [place] [address] Oct, [facility] [address] [id number] [address] [place] [address], [place] [address] Oct, [facility] [address] [id number] [address] [place] [address], [place] [address] Aug, [facility] [address] [id number] [address] [place] [address], [place] [address] Aug, [facility] [address] [id number] [address] [place] [address], [place] [address] Aug, [facility] [address] [id number] [address] [place] [address], [place] [address] Aug, [facility] [address] [id number] [address] [place] [address], [place] [address] Aug, [facility] [address] [id number] [address] [place] [address], [place] [address] Aug, [facility] [address] [id number] [address] [place] [address], [place] [address] Aug, [facility] [address] [id number] [address] [place] [address], [place] [address] Aug, [facility] [address] [id number] [address] [place] [address], [place] [address] Jul, [facility] [address] [id number] [address] [place] [address], [place] [address] Jul, [facility] [address] [id number] [address] [place] [address], [place] [address] Jun, [facility] [address] [id number] [address] [place] [address], [place] [address] Jun, [facility] [address] [id number] [address] [place] [address], [place] [address] Jun, [facility] [address] [id number] [address] [place] [address], [place] [address] Jun, [facility] [address] [id number] [address] [place] [address], [place] [address] Jun, [facility] [address] [id number] [address] [place] [address], [place] [address] Jun, [facility] [address] [id number] [address] [place] [address], [place] [address] May, [facility] [address] [id number] [address] [place] [address], [place] [address] May, [facility] [address] [id number] [address] [place] [address], [place] [address] Apr, [facility] [address] [id number] [address] [place] [address], [place] [address] Apr, [facility] [address] [id number] [address] [place] [address], [place] [address] Mar, [facility] [address] [id number] [address] [place] [address], [place] [address] Mar, [facility] [address] [id number] [address] [place] [address], [place] [address] Mar, [facility] [address] [id number] [address] [place] [address], [place] [address] Feb, [facility] [address] [id number] [address] [place] [address], [place] [address] Jan, [facility] [address] [id number] [address] [place] [address], [place] [address] December, [facility] [address] [id number] [address] [place] [address], [place] [address] December, [facility] [address] [id number] [address] [place] [address], [place] [address] December, [facility] [address] [id number] [address] [place] [address], [place] [address] December, [facility] [address] [id number] [address] [place] [address], [place] [address] December, [facility] [address] [id number] [address] [place] [address], [place] [address] December, [facility] [address] [id number] [address] [place] [address], [place] [address] Nov, [facility] [address] [id number] [address] [place] [address], [place] [address] Nov, [facility] [address] [id number] [address] [place] [address], [place] [address] Nov, [facility] [address] [id number] [address] [place] [address], [place] [address] 05 Oct, 2012 [facility] [address] [id number] [address] [place] [address], [place] [address] Jun, [facility] [address] [id number] [address] [place] [address], [place] [address] Jun, [facility] [address] [id number] [address] [place] [address], [place] [address] Jun, [facility] [address] [id number] [address] [place] [address], [place] [address] Jun, [facility] [address] [id number] [address] [place] [address], [place] [address] 18 Apr, 2012 [facility] [address] [id number] [address] [place] [address], [place] [address] Mar, [facility] [address] [id number] [address] [place] [address], [place] [address] Mar, [facility] [address] [id number] [address] [place] [address], [place] [address] Jan, [facility] [address] [id number] [address] [place] [address], [place] [address] December, [facility] [address] [id number] [address] [place] [address], [place] [address] Nov, [facility] [address] [id number] [address] [place] [address], [place] [address] Nov, [facility] [address] [id number] [address] [place] [address], [place] [address] Nov, [facility] [address] [id number] [address] [place] [address], [place] [address] Nov, [facility] [address] [id number] [address] [place] [address], [place] [address] Aug, [facility] [address] [id number] [address] [place] [address], [place] [address] Aug, [facility] [address] [id number] [address] [place] [address], [place] [address] Jul, [facility] [address] [id number] [address] [place] [address], [place] [address] Jun, [facility] [address] [id number] [address] [place] [address], [place] [address] Jun, [facility] [address] [id number] [address] [place] [address], [place] [address] 14 Apr, 2011 [facility] [address] [id number] [address] [place] [address] Feb, IMMUNIZATIONS No Known Immunizations SOCIAL HISTORY Never Assessed REASON FOR VISIT Controlled Med Refill 06/02/18 PLAN OF CARE VITAL SIGNS MEDICATIONS Medication Instructions Dosage Frequency Start Date End Date Duration S tat Concerta 54 MG Orally Once a day 1 tablet in the morning 24h Apr, 28 days Active RESULTS No Results PROCEDURES No Known procedures INSTRUCTIONS MEDICATIONS ADMINISTERED No Known Medications MEDICAL (GENERAL) HISTORY Type Description Date Medical History Hypertension Medical History ADHD Medical History depression Medical History anxiety Surgical History section Surgical History collar bone repair
--- OUTSIDE RECORDS SUMMARY | 2020-02-11 01:34 | XMS REPORT ---
Author Author Elaine GALARZA Organization [facility] Address [address] [place] [address] Care Team Providers Care Morning Show Newscast Producer Name Role Phone MARI GALARZA Unavailable PROBLEMS Type Condition ICD9-CM Code FVE20-ST Code Onset Dates Condition S tatus SNOMED Code Problem Seasonal allergies J30.2 Active 4 [id number] Problem Essential hypertension I10 Active 81100653 Problem Major depressive disorder, recurrent episode, in full remission F33.42 Active 810497464 Problem Primary insomnia F51.01 Active 397 2004 Problem ADHD, predominantly inattentive type F90.0 Active [id number] ALLERGIES No Information ENCOUNTERS Encounter Location Date Diagnosis [place] [id number] [facility] [id number] [address] [place] [address] May, [facility] [address] [facility] [id number] [address] [place] [address] May, [facility] [address] [facility] [id number] [address] [place] [address] Apr, ADHD, predominantly inattent randall type F90.0 [facility] [address] [facility] [id number] [address] [place] [address] Apr, ADHD, predominantly inattent randall type F90.0 and Major depressive disorder, recurrent episode, in full remission F33.42 [facility] [address] [facility] [id number] [address] [place] [address] Mar, ADHD, predominantly inattent randall type F90.0 and Primary insomnia F51.01 [facility] [address] [facility] [id number] [address] [place] [address] Mar, [facility] [address] [facility] [id number] [address] [place] [address] Mar, ADHD, predominantly inattent randall type F90.0 and Primary insomnia F51.01 [facility] [address] [facility] [id number] [address] [place] [address] Feb, ADHD, predominantly inattent randall type F90.0 and Primary insomnia F51.01 [facility] [address] [place] [id number] [address] [place] [address] Jan, ADHD, predominantly inattent randall type F90.0 and Primary insomnia F51.01 [facility] [address] [facility] [id number] [address] [place] [address] December, Seasonal allergies J30.2 and Post-nasal drip R09.82 [facility] [address] [place] [id number] [address] [place] [address] December, ADHD, predominantly inattent randall type F90.0 and Primary insomnia F51.01 [place] [address] [place] [id number] [address] [place] [address] Nov, ADHD, predominantly inattent randall type F90.0 [place] [address] [place] [id number] [address] [place] [address] Oct, ADHD, predominantly inattent randall type F90.0 [place] [address] [place] [id number] [address] [place] [address] Oct, ADHD, predominantly inattent randall type F90.0 ; Primary insomnia F51.01 and Screening, lipid Z13.220 [place] [address] [facility] [id number] [address] [place] [address] Sep, ADHD, predominantly inattent randall type F90.0 [place] [address] [place] [id number] [address] [place] [address] Aug, ADHD, predominantly inattent randall type F90.0 and Primary insomnia F51.01 [place] [address] [place] [id number] [address] [place] [address] Jul, ADHD, predominantly inattent randall type F90.0 [facility] [address] [id number] [address] [place] [address] Jul, Primary insomnia F51.01 and ADHD, predominantly inattentive type F90.0 [facility] [address] [id number] [address] [place] [address] Jun, ADHD, predominantly inattent randall type F90.0 [facility] [address] [id number] [address] [place] [address] May, ADHD, predominantly inattent randall type F90.0 [facility] [address] [id number] [address] [place] [address] Apr, ADHD, predominantly inattent randall type F90.0 [facility] [address] [id number] [address] [place] [address] Mar, ADHD, predominantly inattent randall type F90.0 ; Primary insomnia F51.01 ; Major depressive disorder, recurrent episode, in full remission F33.42 and Acne comedone L70.0 [facility] [address] [id number] [address] [place] [address] Mar, Major depressive disorder, r ecurrent episode, in full remission F33.42 and ADHD, predominantly inattentive type F90.0 [facility] [address] [id number] [address] [place] [address] Feb, ADHD, predominantly inattent randall type F90.0 [facility] [address] [id number] [address] [place] [address] Feb, Primary insomnia F51.01 [facility] [address] [facility] [id number] [address] [place] [address] Jan, ADHD, predominantly inattent randall type F90.0 and Primary insomnia F51.01 [facility] [address] [facility] [id number] [address] [place] [address] December, ADHD, predominantly inattent randall type F90.0 and Primary insomnia F51.01 [facility] [address] [id number] [address] [place] [address] Oct, ADHD, predominantly inattent randall type F90.0 and Primary insomnia F51.01 [facility] [address] [id number] [address] [place] [address] Sep, ADHD, predominantly inattent randall type F90.0 and Primary insomnia F51.01 [facility] [address] [id number] [address] [place] [address] Aug, ADHD, predominantly inattent randall type F90.0 and Primary insomnia F51.01 [place] [address] [id number] [address] [place] [address] Jul, Major depressive disorder, r ecurrent episode, in full remission F33.42 ; ADHD, predominantly inattentive type F90.0 ; Primary insomnia F51.01 ; Acute non-recurrent maxillary sinusitis J01.00 and Screening, lipid Z13.220 [facility] [address] [id number] [address] [place] [address] Jun, Acute non-recurrent maxillar y sinusitis J01.00 [facility] [address] [id number] [address] [place] [address] Jun, ADHD, predominantly inattent randall type F90.0 [facility] [address] [id number] [address] [place] [address] May, [facility] [address] [id number] [address] [place] [address] Apr, [facility] [address] [id number] [address] [place] [address] Feb, Rash R21 and Scabies B86 [facility] [address] [facility] [id number] [address] [place] [address] Feb, ADHD, predominantly inattent randall type F90.0 and Major depressive disorder, recurrent episode, in full remission F33.42 [facility] [address] [id number] [address] [place] [address] Feb, [facility] [address] [id number] [address] [place] [address] Oct, [facility] [address] [id number] [address] [place] [address] Sep, [facility] [address] [id number] [address] [place] [address] Sep, [facility] [address] [id number] [address] [place] [address] Aug, [facility] [address] [id number] [address] [place] [address] Jul, [facility] [address] [id number] [address] [place] [address] Jun, [facility] [address] [id number] [address] [place] [address] May, [facility] [address] [id number] [address] [place] [address] May, ADHD, predominantly inattent randall type F90.0 and Major depressive disorder, recurrent episode, in full remission F33.42 [facility] [address] [id number] [address] [place] [address] Feb, Major depressive disorder, r ecurrent episode, moderate 296.32 [facility] [address] [id number] [address] [place] [address] Feb, [facility] [address] [id number] [address] [place] [address] Jan, [facility] [address] [id number] [address] [place] [address] Jan, [facility] [address] [facility] [id number] [address] [place] [address] December, [facility] [address] [id number] [address] [place] [address], [place] [address] Nov, [facility] [address] [id number] [address] [place] [address], [place] [address] Nov, [facility] [address] [id number] [address] [place] [address], [place] [address] Oct, [facility] [address] [id number] [address] [place] [address], [place] [address] Oct, [facility] [address] [id number] [address] [place] [address], [place] [address] Sep, [facility] [address] [id number] [address] [place] [address], [place] [address] Sep, [facility] [address] [id number] [address] [place] [address], [place] [address] Sep, [facility] [address] [id number] [address] [place] [address], [place] [address] Sep, [facility] [address] [id number] [address] [place] [address], [place] [address] Aug, [facility] [address] [id number] [address] [place] [address], [place] [address] Aug, [facility] [address] [id number] [address] [place] [address], [place] [address] Aug, [facility] [address] [id number] [address] [place] [address] Aug, [facility] [address] [id number] [address] [place] [address], [place] [address] Aug, [facility] [address] [id number] [address] [place] [address], [place] [address] Aug, [facility] [address] [id number] [address] [place] [address], [place] [address] Jul, [facility] [address] [id number] [address] [place] [address], [place] [address] Jul, [facility] [address] [id number] [address] [place] [address], [place] [address] Jun, [facility] [address] [id number] [address] [place] [address], [place] [address] Jun, [facility] [address] [id number] [address] [place] [address], [place] [address] May, [facility] [address] [id number] [address] [place] [address], [place] [address] May, [facility] [address] [id number] [address] [place] [address], [place] [address] Apr, [facility] [address] [id number] [address] [place] [address], [place] [address] Apr, [facility] [address] [id number] [address] [place] [address], [place] [address] Apr, [facility] [address] [id number] [address] [place] [address], [place] [address] Mar, [facility] [address] [id number] [address] [place] [address], [place] [address] Mar, [facility] [address] [id number] [address] [place] [address], [place] [address] Mar, [facility] [address] [id number] [address] [place] [address], [place] [address] Mar, [facility] [address] [id number] [address] [place] [address], [place] [address] Feb, [facility] [address] [id number] [address] [place] [address], [place] [address] Feb, [facility] [address] [id number] [address] [place] [address], [place] [address] Feb, [facility] [address] [id number] [address] [place] [address], [place] [address] Feb, [facility] [address] [id number] [facility] [place] [address] Feb, [facility] [address] [id number] [facility] [place] [address] Feb, [facility] [address] [id number] [address] [place] [address], [place] [address] Jan, [facility] [address] [id number] [address] [place] [address], [place] [address] Jan, [facility] [address] [id number] [address] [place] [address], [place] [address] Jan, [facility] [address] [id number] [address] [place] [address], [place] [address] Jan, [facility] [address] [id number] [address] [place] [address], [place] [address] December, [facility] [address] [id number] [address] [place] [address], [place] [address] December, [facility] [address] [id number] [address] [place] [address], [place] [address] December, [facility] [address] [id number] [address] [place] [address], [place] [address] December, [facility] [address] [id number] [address] [place] [address], [place] [address] December, [facility] [address] [id number] [address] [place] [address], [place] [address] December, [facility] [address] [id number] [address] [place] [address], [place] [address] December, [facility] [address] [id number] [address] [place] [address], [place] [address] December, [facility] [address] [id number] [address] [place] [address], [place] [address] December, [facility] [address] [id number] [address] [place] [address], [place] [address] December, [facility] [address] [id number] [facility] [place] [address] Nov, [facility] [address] [id number] [address] [place] [address], [place] [address] Nov, [facility] [address] [id number] [address] [place] [address], [place] [address] Oct, [facility] [address] [id number] [address] [place] [address], [place] [address] Oct, [facility] [address] [id number] [address] [place] [address], [place] [address] Oct, [facility] [address] [id number] [address] [place] [address], [place] [address] Oct, [facility] [address] [id number] [address] [place] [address], [place] [address] Oct, [facility] [address] [id number] [address] [place] [address], [place] [address] Oct, [facility] [address] [id number] [address] [place] [address], [place] [address] Aug, [facility] [address] [id number] [address] [place] [address], [place] [address] Aug, [facility] [address] [id number] [address] [place] [address], [place] [address] Aug, [facility] [address] [id number] [address] [place] [address], [place] [address] Aug, [facility] [address] [id number] [address] [place] [address], [place] [address] Aug, [facility] [address] [id number] [address] [place] [address], [place] [address] Aug, [facility] [address] [id number] [address] [place] [address], [place] [address] Aug, [facility] [address] [id number] [address] [place] [address], [place] [address] Aug, [facility] [address] [id number] [address] [place] [address], [place] [address] Jul, [facility] [address] [id number] [address] [place] [address], [place] [address] Jul, [facility] [address] [id number] [address] [place] [address], [place] [address] Jun, [facility] [address] [id number] [address] [place] [address], [place] [address] Jun, [facility] [address] [id number] [address] [place] [address], [place] [address] Jun, [facility] [address] [id number] [address] [place] [address], [place] [address] Jun, [facility] [address] [id number] [address] [place] [address], [place] [address] Jun, [facility] [address] [id number] [address] [place] [address], [place] [address] Jun, [facility] [address] [id number] [address] [place] [address], [place] [address] May, [facility] [address] [id number] [address] [place] [address], [place] [address] May, [facility] [address] [id number] [address] [place] [address], [place] [address] Apr, [facility] [address] [id number] [address] [place] [address], [place] [address] Apr, [facility] [address] [id number] [address] [place] [address], [place] [address] Mar, [facility] [address] [id number] [address] [place] [address], [place] [address] Mar, [facility] [address] [id number] [address] [place] [address], [place] [address] Mar, [facility] [address] [id number] [address] [place] [address], [place] [address] Feb, [facility] [address] [id number] [address] [place] [address], [place] [address] Jan, [facility] [address] [id number] [address] [place] [address], [place] [address] December, [facility] [address] [id number] [address] [place] [address], [place] [address] December, [facility] [address] [id number] [address] [place] [address], [place] [address] December, [facility] [address] [id number] [address] [place] [address], [place] [address] December, [facility] [address] [id number] [address] [place] [address], [place] [address] December, [facility] [address] [id number] [address] [place] [address], [place] [address] December, [facility] [address] [id number] [address] [place] [address], [place] [address] Nov, [facility] [address] [id number] [address] [place] [address], [place] [address] Nov, [facility] [address] [id number] [address] [place] [address], [place] [address] Nov, [facility] [address] [id number] [address] [place] [address], [place] [address] 05 Oct, 2012 [facility] [address] [id number] [address] [place] [address], [place] [address] Jun, [facility] [address] [id number] [address] [place] [address], [place] [address] Jun, [facility] [address] [id number] [address] [place] [address], [place] [address] Jun, [facility] [address] [id number] [address] [place] [address], [place] [address] Jun, [facility] [address] [id number] [address] [place] [address], [place] [id number] 18 Apr, 2012 [facility] [address] [id number] [address] [place] [address], [place] [address] Mar, [facility] [address] [id number] [address] [place] [address], [place] [id number] Mar, [facility] [address] [id number] [address] [place] [address], [place] [address] Jan, [facility] [address] [id number] [address] [place] [address], [place] [address] December, [facility] [address] [id number] [address] [place] [address], [place] [address] Nov, [facility] [address] [id number] [address] [place] [address], [place] [address] Nov, [facility] [address] [id number] [address] [place] [address], [place] [address] Nov, [facility] [address] [id number] [address] [place] [address], [place] [address] Nov, [facility] [address] [id number] [address] [place] [address], [place] [address] Aug, [facility] [address] [id number] [address] [place] [address], [place] [address] Aug, [facility] [address] [id number] [address] [place] [address], [place] [address] Jul, [facility] [address] [id number] [address] [place] [address], [place] [address] Jun, [facility] [address] [id number] [address] [place] [address], [place] [address] Jun, [facility] [address] [id number] [address] [place] [address], [place] [id number] 14 Apr, 2011 [facility] [address] [id number] [address] [place] [address] 18 Feb, 2011 IMMUNIZATIONS No Known Immunizations SOCIAL HISTORY Never Assessed REASON FOR VISIT Refill request PLAN OF CARE VITAL SIGNS MEDICATIONS Unknown Medications RESULTS No Results PROCEDURES No Known procedures INSTRUCTIONS MEDICATIONS ADMINISTERED No Known Medications MEDICAL (GENERAL) HISTORY Type Description Date Medical History Hypertension Medical History ADHD Medical History depression Medical History anxiety Surgical History section Surgical History collar bone repair
--- OUTSIDE RECORDS SUMMARY | 2020-02-11 01:35 | XMS REPORT ---
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 Nanoelectronics Engineer Name Role Phone MARI GALARZA Unavailable PROBLEMS Type Condition ICD9-CM Code [id number] Code Onset Dates Condition S tatus SNOMED Code Problem Seasonal allergies J30.2 Active 4 20746110 Problem Essential hypertension I10 Active 43990662 Problem Major depressive disorder, recurrent episode, in full remission F33.42 Active 281067404 Problem Primary insomnia F51.01 Active 397 2004 Problem ADHD, predominantly inattentive type F90.0 Active 27170104 ALLERGIES No Information ENCOUNTERS Encounter Location Date Diagnosis [place] [address] [place] [id number] [address] [place] [id number] May, [place] [address] [facility] [id number] [address] [place] [address] Apr, ADHD, predominantly inattent randall type F90.0 and Major depressive disorder, recurrent episode, in full remission F33.42 [place] [address] [place] [id number] [address] [place] [address] Mar, ADHD, predominantly inattent randall type F90.0 and Primary insomnia F51.01 [place] [id number] [address] [place] [address] Mar, [place] [address] [place] [id number] [address] [place] [address] Mar, ADHD, predominantly inattent randall type F90.0 and Primary insomnia F51.01 [place] [address] [facility] [id number] [address] [place] [address] Feb, ADHD, predominantly inattent randall type F90.0 and Primary insomnia F51.01 [facility] [place] [address] [id number] [address] [place] [address] Jan, ADHD, predominantly inattent randall type F90.0 and Primary insomnia F51.01 [facility] [address] [id number] [address] [place] [address] December, Seasonal allergies J30.2 and Post-nasal drip R09.82 [facility] [place] [address] [facility] [id number] [address] [place] [address] December, ADHD, predominantly inattent randall type F90.0 and Primary insomnia F51.01 [place] [address] [facility] [id number] [address] [place] [address] Nov, ADHD, predominantly inattent randall type F90.0 [place] [address] [facility] [id number] [address] [place] [address] Oct, ADHD, predominantly inattent randall type F90.0 [facility] [place] [address] [facility] [id number] [address] [place] [address] Oct, ADHD, predominantly inattent randall type F90.0 ; Primary insomnia F51.01 and Screening, lipid Z13.220 [place] [address] [facility] [id number] [address] [place] [address] Sep, ADHD, predominantly inattent randall type F90.0 [facility] [place] [address] [facility] [id number] [address] [place] [address] Aug, ADHD, predominantly inattent randall type F90.0 and Primary insomnia F51.01 [facility] [place] [address] [facility] [id number] [address] [place] [address] Jul, ADHD, predominantly inattent randall type F90.0 [facility] [place] [address] [facility] [id number] [address] [place] [address] Jul, Primary insomnia F51.01 and ADHD, predominantly inattentive type F90.0 [place] [address] [id number] [address] [place] [phone] Jun, ADHD, predominantly inattent randall type F90.0 [facility] [place] [address] [id number] [address] [place] [address] May, ADHD, predominantly inattent randall type F90.0 [facility] [place] [address] [id number] [address] [place] [address] Apr, ADHD, predominantly inattent randall type F90.0 [facility] [place] [address] [id number] [address] [place] [address] Mar, ADHD, predominantly inattent randall type F90.0 ; Primary insomnia F51.01 ; Major depressive disorder, recurrent episode, in full remission F33.42 and Acne comedone L70.0 [facility] [place] [address] [id number] [address] [place] [address] Mar, Major depressive disorder, r ecurrent episode, in full remission F33.42 and ADHD, predominantly inattentive type F90.0 [facility] [place] [address] [id number] [address] [place] [address] Feb, ADHD, predominantly inattent randall type F90.0 [facility] [place] [address] [id number] [address] [place] [address] Feb, Primary insomnia F51.01 [facility] [place] [address] [facility] [id number] [address] [place] [address] Jan, ADHD, predominantly inattent randall type F90.0 and Primary insomnia F51.01 [facility] [place] [address] [id number] [address] [place] [address] December, ADHD, predominantly inattent randall type F90.0 and Primary insomnia F51.01 [facility] [place] [address] [id number] [address] [place] [address] Oct, ADHD, predominantly inattent randall type F90.0 and Primary insomnia F51.01 [facility] [place] [address] [facility] [id number] [address] [place] [address] Sep, ADHD, predominantly inattent randall type F90.0 and Primary insomnia F51.01 [facility] [place] [address] [facility] [id number] [address] [place] [address] Aug, ADHD, predominantly inattent randall type F90.0 and Primary insomnia F51.01 [place] [address] [place] [id number] [address] [place] [address] Jul, Major depressive disorder, r ecurrent episode, in full remission F33.42 ; ADHD, predominantly inattentive type F90.0 ; Primary insomnia F51.01 ; Acute non-recurrent maxillary sinusitis J01.00 and Screening, lipid Z13.220 [facility] [address] [facility] [id number] [address] [place] [address] Jun, Acute non-recurrent maxillar y sinusitis J01.00 [place] [address] [facility] [id number] [address] [place] [address] Jun, ADHD, predominantly inattent randall type F90.0 [place] [address] [facility] [id number] [address] [place] [address] May, [facility] [place] [address] [place] [id number] [address] [place] [address] Apr, [facility] [address] [facility] [id number] [address] [place] [address] Feb, Rash R21 and Scabies B86 [facility] [place] [address] [facility] [id number] [address] [place] [address] Feb, ADHD, predominantly inattent randall type F90.0 and Major depressive disorder, recurrent episode, in full remission F33.42 [facility] [place] [address] [facility] [id number] [address] [place] [address] Feb, [facility] [place] [address] [facility] [id number] [address] [place] [phone] Oct, [facility] [place] [address] [id number] [address] [place] [id number] Sep, [facility] [place] [address] [id number] [address] [place] [address] Sep, [facility] [place] [address] [id number] [address] [place] [phone] Aug, [facility] [place] [address] [id number] [address] [place] [phone] Jul, [facility] [place] [address] [id number] [address] [place] [phone] Jun, [facility] [place] [address] [id number] [address] [place] [address] May, [facility] [place] [address] [id number] [address] [place] [address] May, ADHD, predominantly inattent randall type F90.0 and Major depressive disorder, recurrent episode, in full remission F33.42 [facility] [place] [address] [id number] [address] [place] [phone] Feb, Major depressive disorder, r ecurrent episode, moderate 296.32 [facility] [place] [address] [id number] [address] [place] [phone] Feb, [facility] [place] [address] [id number] [address] [place] [address] Jan, [facility] [place] [address] [id number] [address] [place] [phone] Jan, [facility] [place] [address] [id number] [address] [place] [phone] December, [facility] [place] [address] [id number] [address] [place] [phone] Nov, [facility] [place] [address] [id number] [address] [place] [address] Nov, [facility] [address] [id number] [address] [place] [address], [place] [address] Oct, [facility] [address] [id number] [address] [place] [address], [place] [address] Oct, [facility] [address] [id number] [address] [place] [address], [place] [address] Sep, [facility] [address] [id number] [address] [place] [address], [place] [address] Sep, [facility] [address] [id number] [address] [place] [address], [place] [address] Sep, [facility] [address] [id number] [address] [place] [address], [place] [address] Sep, [facility] [address] [id number] [address] [place] [address], [place] [address] Aug, [facility] [address] [id number] [address] [place] [address], [place] [address] Aug, [facility] [address] [id number] [address] [place] [address], [place] [address] Aug, [facility] [address] [id number] [address] [place] [address], [place] [address] Aug, [facility] [address] [id number] [address] [place] [address], [place] [address] Aug, [facility] [address] [id number] [address] [place] [address], [place] [address] Aug, [facility] [address] [id number] [address] [place] [address], [place] [address] Jul, [facility] [address] [id number] [address] [place] [address], [place] [address] Jul, [facility] [address] [id number] [address] [place] [address], [place] [address] Jun, [facility] [address] [id number] [address] [place] [address], [place] [address] Jun, [facility] [address] [id number] [address] [place] [address], [place] [address] May, [facility] [address] [id number] [address] [place] [address], [place] [address] May, [facility] [address] [id number] [address] [place] [address], [place] [address] Apr, [facility] [address] [id number] [address] [place] [address], [place] [address] Apr, [facility] [address] [id number] [address] [place] [address], [place] [address] Apr, [facility] [address] [id number] [address] [place] [address], [place] [address] Mar, [facility] [address] [id number] [address] [place] [address], [place] [address] Mar, [facility] [address] [id number] [address] [place] [address], [place] [address] Mar, [facility] [address] [id number] [address] [place] [address], [place] [address] Mar, [facility] [address] [id number] [address] [place] [address], [place] [address] Feb, [facility] [address] [id number] [address] [place] [address], [place] [address] Feb, [facility] [address] [id number] [address] [place] [address], [place] [address] Feb, [facility] [address] [id number] [address] [place] [address], [place] [address] Feb, [facility] [address] [id number] [address] [place] [address], [place] [address] Feb, [facility] [address] [id number] [address] [place] [address], [place] [address] Feb, [facility] [address] [id number] [address] [place] [address], [place] [address] Jan, [facility] [address] [id number] [address] [place] [address], [place] [address] Jan, [facility] [address] [id number] [address] [place] [address], [place] [address] Jan, [facility] [address] [id number] [address] [place] [address], [place] [address] Jan, [facility] [address] [id number] [address] [place] [address], [place] [address] December, [facility] [address] [id number] [address] [place] [address], [place] [address] December, [facility] [address] [id number] [address] [place] [address], [place] [address] December, [facility] [address] [id number] [address] [place] [address], [place] [address] December, [facility] [address] [id number] [address] [place] [address], [place] [address] December, [facility] [address] [id number] [address] [place] [address], [place] [address] December, [facility] [address] [id number] [address] [place] [address], [place] [address] December, [facility] [address] [id number] [address] [place] [address], [place] [address] December, [facility] [address] [id number] [address] [place] [address], [place] [address] December, [facility] [address] [id number] [address] [place] [address], [place] [address] December, [facility] [address] [id number] [address] [place] [address], [place] [address] Nov, [facility] [address] [id number] [address] [place] [address], [place] [address] Nov, [facility] [address] [id number] [facility] [place] [address] Oct, [facility] [address] [id number] [facility] [place] [address] Oct, [facility] [address] [id number] [facility] [place] [address] Oct, [facility] [address] [id number] [address] [place] [address], [place] [address] Oct, [facility] [address] [id number] [address] [place] [address], [place] [address] Oct, [facility] [address] [id number] [address] [place] [address], [place] [address] Oct, [facility] [address] [id number] [address] [place] [address], [place] [address] Aug, [facility] [address] [id number] [address] [place] [address], [place] [address] Aug, [facility] [address] [id number] [address] [place] [address], [place] [address] Aug, [facility] [address] [id number] [address] [place] [address], [place] [address] Aug, [facility] [address] [id number] [address] [place] [address], [place] [address] Aug, [facility] [address] [id number] [address] [place] [address], [place] [address] Aug, [facility] [address] [id number] [address] [place] [address], [place] [address] Aug, [facility] [address] [id number] [address] [place] [address], [place] [address] Aug, [facility] [address] [id number] [address] [place] [address], [place] [address] Jul, [facility] [address] [id number] [address] [place] [address], [place] [address] Jul, [facility] [address] [id number] [address] [place] [address], [place] [address] Jun, [facility] [address] [id number] [address] [place] [address], [place] [address] Jun, [facility] [address] [id number] [address] [place] [address], [place] [address] Jun, [facility] [address] [id number] [address] [place] [address], [place] [address] Jun, [facility] [address] [id number] [address] [place] [address], [place] [address] Jun, [facility] [address] [id number] [address] [place] [address], [place] [address] Jun, [facility] [address] [id number] [address] [place] [address], [place] [address] May, [facility] [address] [id number] [address] [place] [address], [place] [address] May, [facility] [address] [id number] [address] [place] [address], [place] [address] Apr, [facility] [address] [id number] [address] [place] [address], [place] [address] Apr, [facility] [address] [id number] [address] [place] [address], [place] [address] Mar, [facility] [address] [id number] [address] [place] [address], [place] [address] Mar, [facility] [address] [id number] [address] [place] [address], [place] [address] Mar, [facility] [address] [id number] [address] [place] [address], [place] [address] Feb, [facility] [address] [id number] [address] [place] [address], [place] [address] Jan, [facility] [address] [id number] [address] [place] [address], [place] [address] December, [facility] [address] [id number] [address] [place] [address], [place] [address] December, [facility] [address] [id number] [address] [place] [address], [place] [address] December, [facility] [address] [id number] [address] [place] [address], [place] [address] December, [facility] [address] [id number] [address] [place] [address], [place] [address] December, [facility] [address] [id number] [address] [place] [address], [place] [address] December, [facility] [address] [id number] [address] [place] [address], [place] [id number] Nov, [facility] [address] [id number] [address] [place] [address], [place] [id number] Nov, [facility] [address] [id number] [address] [place] [address], [place] [id number] 08 Nov, 2012 [facility] [address] [id number] [address] [place] [address], [place] [id number] 05 Oct, 2012 [facility] [address] [id number] [address] [place] [address], [place] [id number] 14 Jun, 2012 [facility] [address] [id number] [address] [place] [address], [place] [id number] 14 Jun, 2012 [facility] [address] [id number] [address] [place] [address], [place] [id number] Jun, [facility] [address] [id number] [address] [place] [address], [place] [id number] Jun, [facility] [address] [id number] [address] [place] [address], [place] [id number] 18 Apr, 2012 [facility] [address] [id number] [address] [place] [address], [place] [id number] Mar, [facility] [place] [address] [id number] [address] [place] [id number] Mar, [facility] [place] [address] [id number] [address] [place] [id number] Jan, [facility] [place] [address] [id number] [address] [place] [id number] December, [facility] [place] [address] [id number] [address] [place] [id number] Nov, [facility] [place] [address] [id number] [address] [place] [id number] Nov, [facility] [place] [address] [id number] [address] [place] [phone] Nov, [facility] [place] [address] [id number] [address] [place] [id number] Nov, [facility] [place] [address] [id number] [address] [place] [id number] Aug, [facility] [place] [address] [id number] [address] [place] [id number] Aug, [facility] [place] [address] [id number] [address] [place] [id number] Jul, [facility] [place] [address] [id number] [address] [place] [id number] Jun, [facility] [place] [address] [id number] [address] [place] [phone] Jun, [facility] [place] [address] [id number] [address] [place] [id number] Apr, [facility] [place] [address] [id number] [address] [place] [phone] Feb, IMMUNIZATIONS No Known Immunizations SOCIAL HISTORY Never Assessed REASON FOR VISIT Requests return call PLAN OF CARE VITAL SIGNS MEDICATIONS Unknown Medications RESULTS No Results PROCEDURES No Known procedures INSTRUCTIONS MEDICATIONS ADMINISTERED No Known Medications MEDICAL (GENERAL) HISTORY Type Description Date Medical History Hypertension Medical History ADHD Medical History depression Medical History anxiety Surgical History section Surgical History collar bone repair
--- OUTSIDE RECORDS SUMMARY | 2020-02-11 01:35 | XMS REPORT ---
Author Author Elaine GALARZA Organization [facility] Address [address] [place] [address] Care Team Providers Care Computer Information Systems Professor Name Role Phone MARI GALARZA Unavailable PROBLEMS Type Condition ICD9-CM Code [id number] Code Onset Dates Condition S tatus SNOMED Code Problem Seasonal allergies J30.2 Active 4 01099457 Problem Essential hypertension I10 Active 20785890 Problem Major depressive disorder, recurrent episode, in full remission F33.42 Active 888161670 Problem Primary insomnia F51.01 Active 397 2004 Problem ADHD, predominantly inattentive type F90.0 Active [id number] ALLERGIES No Information ENCOUNTERS Encounter Location Date Diagnosis [facility] [address] [id number] [address] [place] [address] Apr, [facility] [address] [id number] [address] [place] [address] Mar, [facility] [address] [address] Mar, ADHD, predominantly inattent randall type F90.0 and Primary insomnia F51.01 [facility] [id number] [place] [address] Feb, ADHD, predominantly inattent randall type F90.0 and Primary insomnia F51.01 [facility] [address] [id number] [address] [place] [address] Jan, ADHD, predominantly inattent randall type F90.0 and Primary insomnia F51.01 [facility] [address] [id number] [address] [place] [address] December, Seasonal allergies J30.2 and Post-nasal drip R09.82 [facility] [address] [id number] [address] [place] [address] December, ADHD, predominantly inattent randall type F90.0 and Primary insomnia F51.01 [facility] [address] [id number] [address] [place] [address] Nov, ADHD, predominantly inattent randall type F90.0 [facility] [address] [id number] [address] [place] [address] Oct, ADHD, predominantly inattent randall type F90.0 [facility] [address] [id number] [address] [place] [address] Oct, ADHD, predominantly inattent randall type F90.0 ; Primary insomnia F51.01 and Screening, lipid Z13.220 [facility] [address] [id number] [address] [place] [address] Sep, ADHD, predominantly inattent randall type F90.0 [facility] [address] [id number] [address] [place] [address] Aug, ADHD, predominantly inattent randall type F90.0 and Primary insomnia F51.01 [facility] [address] [id number] [address] [place] [address] Jul, ADHD, predominantly inattent randall type F90.0 [facility] [address] [id number] [address] [place] [address] Jul, Primary insomnia F51.01 and ADHD, predominantly inattentive type F90.0 [facility] [address] [id number] [address] [place] [address] Jun, ADHD, predominantly inattent randall type F90.0 [facility] [address] [facility] [id number] [address] [place] [address] May, ADHD, predominantly inattent randall type F90.0 [facility] [address] [facility] [id number] [address] [place] [address] Apr, ADHD, predominantly inattent randall type F90.0 [facility] [address] [id number] [address] [place] [address] Mar, ADHD, predominantly inattent randall type F90.0 ; Primary insomnia F51.01 ; Major depressive disorder, recurrent episode, in full remission F33.42 and Acne comedone L70.0 [facility] [address] [id number] [address] [place] [address] Mar, Major depressive disorder, r ecurrent episode, in full remission F33.42 and ADHD, predominantly inattentive type F90.0 [facility] [address] [id number] [address] [place] [address] Feb, ADHD, predominantly inattent randall type F90.0 [facility] [address] [id number] [address] [place] [address] Feb, Primary insomnia F51.01 [facility] [address] [id number] [address] [place] [address] Jan, ADHD, predominantly inattent randall type F90.0 and Primary insomnia F51.01 [facility] [address] [id number] [address] [place] [address] December, ADHD, predominantly inattent randall type F90.0 and Primary insomnia F51.01 [facility] [address] [id number] [address] [place] [address] Oct, ADHD, predominantly inattent randall type F90.0 and Primary insomnia F51.01 [facility] [address] [id number] [address] [place] [address] Sep, ADHD, predominantly inattent randall type F90.0 and Primary insomnia F51.01 [facility] [address] [id number] [address] [place] [address] Aug, ADHD, predominantly inattent randall type F90.0 and Primary insomnia F51.01 [facility] [address] [id number] [address] [place] [address] Jul, Major depressive disorder, r ecurrent episode, in full remission F33.42 ; ADHD, predominantly inattentive type F90.0 ; Primary insomnia F51.01 ; Acute non-recurrent maxillary sinusitis J01.00 and Screening, lipid Z13.220 [facility] [address] [id number] [address] [place] [address] Jun, Acute non-recurrent maxillar y sinusitis J01.00 [facility] [address] [id number] [address] [place] [address] Jun, ADHD, predominantly inattent randall type F90.0 [facility] [address] [id number] [address] [place] [address] May, [facility] [address] [id number] [address] [place] [address] Apr, [facility] [address] [id number] [address] [place] [address] Feb, Rash R21 and Scabies B86 [facility] [address] [id number] [address] [place] [address] Feb, ADHD, predominantly inattent randall type F90.0 and Major depressive disorder, recurrent episode, in full remission F33.42 [facility] [address] [id number] [address] [place] [address] Feb, [facility] [address] [id number] [address] [place] [address] Oct, [facility] [address] [id number] [address] [place] [address] Sep, [facility] [address] [id number] [address] [place] [address] Sep, [facility] [address] [id number] [address] [place] [address] Aug, [facility] [address] [id number] [address] [place] [address] Jul, [facility] [address] [id number] [address] [place] [address] Jun, [facility] [address] [id number] [address] [place] [address] May, [facility] [address] [id number] [address] [place] [address] May, ADHD, predominantly inattent randall type F90.0 and Major depressive disorder, recurrent episode, in full remission F33.42 [facility] [address] [id number] [address] [place] [address] Feb, Major depressive disorder, r ecurrent episode, moderate 296.32 [facility] [address] [id number] [address] [place] [address] Feb, [facility] [address] [id number] [address] [place] [address] Jan, [facility] [address] [id number] [address] [place] [address] Jan, [facility] [address] [id number] [address] [place] [address] December, [facility] [address] [facility] [id number] [address] [place] [address] Nov, [facility] [address] [id number] [address] [place] [address] Nov, [facility] [address] [id number] [address] [place] [address] Oct, [facility] [address] [id number] [address] [place] [address] Oct, [facility] [address] [id number] [address] [place] [address] Sep, [facility] [address] [id number] [address] [place] [address] Sep, [facility] [address] [id number] [address] [place] [address], [place] [address] Sep, [facility] [address] [id number] [address] [place] [address], [place] [address] Sep, [facility] [address] [id number] [address] [place] [address], [place] [address] Aug, [facility] [address] [id number] [address] [place] [address] Aug, [facility] [address] [id number] [address] [place] [address], [place] [address] Aug, [facility] [address] [id number] [address] [place] [address], [place] [address] Aug, [facility] [address] [id number] [address] [place] [address], [place] [address] Aug, [facility] [address] [id number] [address] [place] [address], [place] [address] Aug, [facility] [address] [id number] [address] [place] [address], [place] [address] Jul, [facility] [address] [id number] [address] [place] [address], [place] [address] Jul, [facility] [address] [id number] [address] [place] [address], [place] [address] Jun, [facility] [address] [id number] [address] [place] [address] Jun, [facility] [address] [id number] [address] [place] [address], [place] [address] May, [facility] [address] [id number] [address] [place] [address], [place] [address] May, [facility] [address] [id number] [address] [place] [address], [place] [address] Apr, [facility] [address] [id number] [address] [place] [address], [place] [address] Apr, [facility] [address] [id number] [address] [place] [address], [place] [address] Apr, [facility] [address] [id number] [address] [place] [address], [place] [address] Mar, [facility] [address] [id number] [address] [place] [address], [place] [address] Mar, [facility] [address] [id number] [address] [place] [address], [place] [address] Mar, [facility] [address] [id number] [address] [place] [address], [place] [address] Mar, [facility] [address] [id number] [address] [place] [address], [place] [address] Feb, [facility] [address] [id number] [address] [place] [address], [place] [address] Feb, [facility] [address] [id number] [address] [place] [address], [place] [address] Feb, [facility] [address] [id number] [address] [place] [address], [place] [address] Feb, [facility] [address] [id number] [address] [place] [address], [place] [address] Feb, [facility] [address] [id number] [address] [place] [address], [place] [address] Feb, [facility] [address] [id number] [address] [place] [address], [place] [address] Jan, [facility] [address] [id number] [address] [place] [address], [place] [address] Jan, [facility] [address] [id number] [address] [place] [address], [place] [address] Jan, [facility] [address] [id number] [address] [place] [address], [place] [address] Jan, [facility] [address] [id number] [facility] [place] [address] December, [facility] [address] [id number] [address] [place] [address], [place] [address] December, [facility] [address] [id number] [address] [place] [address], [place] [address] December, [facility] [address] [id number] [address] [place] [address], [place] [address] December, [facility] [address] [id number] [address] [place] [address], [place] [address] December, [facility] [address] [id number] [address] [place] [address], [place] [address] December, [facility] [address] [id number] [address] [place] [address], [place] [address] December, [facility] [address] [id number] [address] [place] [address], [place] [address] December, [facility] [address] [id number] [address] [place] [address], [place] [address] December, [facility] [address] [id number] [address] [place] [address], [place] [address] December, [facility] [address] [id number] [address] [place] [address], [place] [address] Nov, [facility] [address] [id number] [address] [place] [address], [place] [address] Nov, [facility] [address] [id number] [address] [place] [address], [place] [address] Oct, [facility] [address] [id number] [address] [place] [address], [place] [address] Oct, [facility] [address] [id number] [address] [place] [address], [place] [address] Oct, [facility] [address] [id number] [address] [place] [address], [place] [address] Oct, [facility] [address] [id number] [address] [place] [address], [place] [address] Oct, [facility] [address] [id number] [address] [place] [address], [place] [address] Oct, [facility] [address] [id number] [address] [place] [address], [place] [address] Aug, [facility] [address] [id number] [address] [place] [address], [place] [address] Aug, [facility] [address] [id number] [address] [place] [address], [place] [address] Aug, [facility] [address] [id number] [address] [place] [address], [place] [address] Aug, [facility] [address] [id number] [address] [place] [address], [place] [address] Aug, [facility] [address] [id number] [address] [place] [address], [place] [address] Aug, [facility] [address] [id number] [address] [place] [address], [place] [address] Aug, [facility] [address] [id number] [address] [place] [address], [place] [address] Aug, [facility] [address] [id number] [address] [place] [address], [place] [address] Jul, [facility] [address] [id number] [address] [place] [address], [place] [address] Jul, [facility] [address] [id number] [address] [place] [address], [place] [address] Jun, [facility] [address] [id number] [address] [place] [address], [place] [address] Jun, [facility] [address] [id number] [address] [place] [address], [place] [address] Jun, [facility] [address] [id number] [address] [place] [address], [place] [address] Jun, [facility] [address] [id number] [address] [place] [address], [place] [address] Jun, [facility] [address] [id number] [address] [place] [address], [place] [address] Jun, [facility] [address] [id number] [address] [place] [address], [place] [address] May, [facility] [address] [id number] [address] [place] [address], [place] [address] May, [facility] [address] [id number] [address] [place] [address], [place] [address] Apr, [facility] [address] [id number] [address] [place] [address], [place] [address] Apr, [facility] [address] [id number] [address] [place] [address], [place] [address] Mar, [facility] [address] [id number] [address] [place] [address], [place] [address] Mar, [facility] [address] [id number] [address] [place] [address], [place] [address] Mar, [facility] [address] [id number] [address] [place] [address], [place] [address] Feb, [facility] [address] [id number] [address] [place] [address], [place] [address] Jan, [facility] [address] [id number] [address] [place] [address], [place] [address] December, [facility] [address] [id number] [address] [place] [address], [place] [address] December, [facility] [address] [id number] [address] [place] [address], [place] [address] December, [facility] [address] [id number] [address] [place] [address] [address] December, [facility] [address] [id number] [address] [place] [address], [place] [address] December, [facility] [address] [id number] [address] [place] [address], [place] [address] December, [facility] [address] [id number] [address] [place] [address], [place] [address] Nov, [facility] [address] [id number] [address] [place] [address], [place] [address] Nov, [facility] [address] [id number] [address] [place] [address], [place] [address] Nov, [facility] [address] [id number] [address] [place] [address], [place] [address] Oct, [facility] [address] [id number] [address] [place] [address], [place] [address] Jun, [facility] [address] [id number] [address] [place] [address], [place] [address] Jun, [facility] [address] [id number] [address] [place] [address], [place] [address] Jun, [facility] [address] [id number] [address] [place] [address], [place] [address] Jun, [facility] [address] [id number] [address] [place] [address], [place] [address] Apr, [facility] [address] [id number] [address] [place] [address], [place] [address] Mar, [facility] [address] [id number] [address] [place] [address], [place] [address] Mar, [facility] [address] [id number] [address] [place] [address], [place] [address] Jan, [facility] [address] [id number] [address] [place] [address], [place] [address] December, [facility] [address] [id number] [address] [place] [address] 16 Nov, 2011 [facility] [address] [id number] [address] [place] [address] Nov, [facility] [address] [id number] [address] [place] [address] Nov, [facility] [address] [id number] [address] [place] [address] Nov, [facility] [address] [id number] [address] [place] [address] Aug, [facility] [address] [id number] [address] [place] [address] Aug, [facility] [address] [id number] [address] [place] [phone] Jul, [facility] [address] [id number] [address] [place] [phone] Jun, [facility] [address] [id number] [address] [place] [phone] Jun, [facility] [address] [id number] [address] [place] [phone] Apr, [facility] [address] [id number] [address] [place] [phone] Feb, IMMUNIZATIONS No Known Immunizations SOCIAL HISTORY Never Assessed REASON FOR VISIT Controlled Med Refill 02/10/18 PLAN OF CARE VITAL SIGNS MEDICATIONS Medication Instructions Dosage Frequency Start Date End Date Duration S tatus Adderall XR 20 MG Orally Once a day 2 capsules in the morning 24h Jan, 28 days Active Ambien 10 MG Orally [...]
--- OUTSIDE RECORDS SUMMARY | 2020-02-11 01:35 | XMS REPORT ---
Author Author Elaine GALARZA Organization [facility] Address [address] [place] [address] Care Team Providers Care Psychiatric Aides Teacher Name Role Phone MARI GALARZA Unavailable PROBLEMS Type Condition ICD9-CM Code [id number] Code Onset Dates Condition S tatus SNOMED Code Problem Seasonal allergies J30.2 Active 4 53267156 Problem Essential hypertension I10 Active 73980528 Problem Major depressive disorder, recurrent episode, in full remission F33.42 Active 381954166 Problem Primary insomnia F51.01 Active 397 2004 Problem ADHD, predominantly inattentive type F90.0 Active [id number] ALLERGIES No Information ENCOUNTERS Encounter Location Date Diagnosis [facility] [address] [facility] [id number] [address] [place] [phone] Apr, [facility] [address] [facility] [place] [id number] [address] [place] [address] Mar, ADHD, predominantly inattent randall type F90.0 and Primary insomnia F51.01 [facility] [address] [facility] [place] [id number] [address] [place] [address] Mar, [facility] [address] [facility] [place] [id number] [address] [place] [address] Mar, ADHD, predominantly inattent randall type F90.0 and Primary insomnia F51.01 [facility] [address] [facility] [place] [id number] [address] [place] [address] Feb, ADHD, predominantly inattent randall type F90.0 and Primary insomnia F51.01 [facility] [address] [facility] [place] [id number] [address] [place] [id number] 08 Jan, 2018 ADHD, predominantly inattent randall type F90.0 and Primary insomnia F51.01 [facility] [address] [facility] [place] [id number] [address] [place] [phone] December, Seasonal allergies J30.2 and Post-nasal drip R09.82 [facility] [address] [facility] [place] [id number] [address] [place] [address] December, ADHD, predominantly inattent randall type F90.0 and Primary insomnia F51.01 [facility] [address] [facility] [place] [id number] [address] [place] [phone] Nov, ADHD, predominantly inattent randall type F90.0 [facility] [address] [facility] [place] [id number] [address] [place] [address] Oct, ADHD, predominantly inattent randall type F90.0 [facility] [address] [place] [id number] [address] [place] [address] Oct, ADHD, predominantly inattent randall type F90.0 ; Primary insomnia F51.01 and Screening, lipid Z13.220 [facility] [address] [place] [id number] [address] [place] [address] Sep, ADHD, predominantly inattent randall type F90.0 [facility] [address] [place] [id number] [address] [place] [address] Aug, ADHD, predominantly inattent randall type F90.0 and Primary insomnia F51.01 [facility] [address] [place] [id number] [address] [place] [address] Jul, ADHD, predominantly inattent randall type F90.0 [facility] [place] [address] [place] [id number] [address] [place] [address] Jul, Primary insomnia F51.01 and ADHD, predominantly inattentive type F90.0 [facility] [address] [facility] [place] [id number] [address] [place] [address] Jun, ADHD, predominantly inattent randall type F90.0 [facility] [address] [place] [id number] [address] [place] [address] May, ADHD, predominantly inattent randall type F90.0 [facility] [address] [id number] [address] [place] [address] Apr, ADHD, predominantly inattent randall type F90.0 [facility] [address] [id number] [address] [place] [address] Mar, ADHD, predominantly inattent randall type F90.0 ; Primary insomnia F51.01 ; Major depressive disorder, recurrent episode, in full remission F33.42 and Acne comedone L70.0 [facility] [address] [id number] [address] [place] [address] Mar, Major depressive disorder, r ecurrent episode, in full remission F33.42 and ADHD, predominantly inattentive type F90.0 [facility] [address] [id number] [address] [place] [address] Feb, ADHD, predominantly inattent randall type F90.0 [facility] [address] [id number] [address] [place] [address] Feb, Primary insomnia F51.01 [facility] [address] [facility] [place] [id number] [address] [place] [address] Jan, ADHD, predominantly inattent randall type F90.0 and Primary insomnia F51.01 [facility] [address] [id number] [address] [place] [address] December, ADHD, predominantly inattent randall type F90.0 and Primary insomnia F51.01 [facility] [address] [id number] [address] [place] [address] Oct, ADHD, predominantly inattent randall type F90.0 and Primary insomnia F51.01 [facility] [address] [id number] [address] [place] [address] Sep, ADHD, predominantly inattent randall type F90.0 and Primary insomnia F51.01 [facility] [address] [id number] [address] [place] [address] Aug, ADHD, predominantly inattent randall type F90.0 and Primary insomnia F51.01 [facility] [address] [facility] [place] [id number] [address] [place] [address] Jul, Major depressive disorder, r ecurrent episode, in full remission F33.42 ; ADHD, predominantly inattentive type F90.0 ; Primary insomnia F51.01 ; Acute non-recurrent maxillary sinusitis J01.00 and Screening, lipid Z13.220 [facility] [address] [id number] [address] [place] [address] Jun, Acute non-recurrent maxillar y sinusitis J01.00 [facility] [address] [facility] [place] [id number] [address] [place] [address] Jun, ADHD, predominantly inattent randall type F90.0 [place] [address] [facility] [place] [id number] [address] [place] [address] May, [facility] [address] [facility] [place] [id number] [address] [place] [id number] Apr, [facility] [address] [facility] [place] [id number] [address] [place] [phone] Feb, Rash R21 and Scabies B86 [facility] [address] [facility] [place] [id number] [address] [place] [address] Feb, ADHD, predominantly inattent randall type F90.0 and Major depressive disorder, recurrent episode, in full remission F33.42 [facility] [address] [facility] [place] [id number] [address] [place] [phone] Feb, [place] [address] [facility] [place] [id number] [address] [place] [phone] Oct, [facility] [address] [facility] [place] [id number] [address] [place] [id number] Sep, [facility] [address] [place] [id number] [address] [place] [address] Sep, [facility] [address] [id number] [address] [place] [address] Aug, [facility] [address] [id number] [address] [place] [phone] Jul, [facility] [address] [facility] [place] [id number] [address] [place] [phone] Jun, [facility] [address] [id number] [address] [place] [id number] May, [facility] [address] [id number] [address] [place] [address] May, ADHD, predominantly inattent randall type F90.0 and Major depressive disorder, recurrent episode, in full remission F33.42 [facility] [address] [id number] [address] [place] [address] Feb, Major depressive disorder, r ecurrent episode, moderate 296.32 [facility] [address] [id number] [address] [place] [phone] Feb, [facility] [address] [id number] [address] [place] [address] Jan, [facility] [address] [id number] [address] [place] [phone] Jan, [facility] [address] [facility] [place] [id number] [address] [place] [id number] December, [facility] [address] [id number] [address] [place] [phone] Nov, [facility] [address] [id number] [address] [place] [phone] Nov, [facility] [address] [facility] [place] [id number] [address] [place] [id number] Oct, [facility] [address] [facility] [place] [id number] [address] [place] [phone] Oct, [facility] [address] [id number] [address] [place] [address], [place] [address] Sep, [facility] [address] [id number] [address] [place] [address], [place] [address] Sep, [facility] [address] [id number] [address] [place] [address], [place] [address] Sep, [facility] [address] [id number] [address] [place] [address], [place] [address] Sep, [facility] [address] [id number] [address] [place] [address], [place] [address] Aug, [facility] [address] [id number] [address] [place] [address], [place] [address] Aug, [facility] [address] [id number] [address] [place] [address], [place] [address] Aug, [facility] [address] [id number] [address] [place] [address], [place] [address] Aug, [facility] [address] [id number] [address] [place] [address], [place] [address] Aug, [facility] [address] [id number] [address] [place] [address], [place] [address] Aug, [facility] [address] [id number] [address] [place] [address], [place] [address] Jul, [facility] [address] [id number] [address] [place] [address], [place] [address] Jul, [facility] [address] [id number] [address] [place] [address], [place] [address] Jun, [facility] [address] [id number] [address] [place] [address], [place] [address] Jun, [facility] [address] [id number] [address] [place] [address], [place] [address] May, [facility] [address] [id number] [address] [place] [address] May, [facility] [address] [id number] [address] [place] [address], [place] [address] Apr, [facility] [address] [id number] [address] [place] [address], [place] [address] Apr, [facility] [address] [id number] [address] [place] [address], [place] [address] Apr, [facility] [address] [id number] [address] [place] [address], [place] [address] Mar, [facility] [address] [id number] [address] [place] [address], [place] [address] Mar, [facility] [address] [id number] [address] [place] [address], [place] [address] Mar, [facility] [address] [id number] [address] [place] [address], [place] [address] Mar, [facility] [address] [id number] [address] [place] [address], [place] [address] Feb, [facility] [address] [id number] [address] [place] [address], [place] [address] Feb, [facility] [address] [id number] [address] [place] [address], [place] [address] Feb, [facility] [address] [id number] [address] [place] [address], [place] [address] Feb, [facility] [address] [id number] [address] [place] [address], [place] [address] Feb, [facility] [address] [id number] [address] [place] [address], [place] [address] Feb, [facility] [address] [id number] [address] [place] [address], [place] [address] Jan, [facility] [address] [id number] [address] [place] [address], [place] [address] Jan, [facility] [address] [id number] [facility] [place] [address] Jan, [facility] [address] [id number] [address] [place] [address], [place] [address] Jan, [facility] [address] [id number] [facility] [place] [address] December, [facility] [address] [id number] [address] [place] [address], [place] [address] December, [facility] [address] [id number] [address] [place] [address], [place] [address] December, [facility] [address] [id number] [address] [place] [address], [place] [address] December, [facility] [address] [id number] [address] [place] [address], [place] [address] December, [facility] [address] [id number] [address] [place] [address], [place] [address] December, [facility] [address] [id number] [address] [place] [address], [place] [address] December, [facility] [address] [id number] [address] [place] [address], [place] [address] December, [facility] [address] [id number] [address] [place] [address], [place] [address] December, [facility] [address] [id number] [address] [place] [address], [place] [address] December, [facility] [address] [id number] [address] [place] [address], [place] [address] Nov, [facility] [address] [id number] [address] [place] [address], [place] [address] Nov, [facility] [address] [id number] [address] [place] [address], [place] [address] Oct, [facility] [address] [id number] [address] [place] [address], [place] [address] Oct, [facility] [address] [id number] [address] [place] [address], [place] [address] Oct, [facility] [address] [id number] [address] [place] [address], [place] [address] Oct, [facility] [address] [id number] [address] [place] [address], [place] [address] Oct, [facility] [address] [id number] [address] [place] [address], [place] [address] Oct, [facility] [address] [id number] [address] [place] [address], [place] [address] Aug, [facility] [address] [id number] [address] [place] [address], [place] [address] Aug, [facility] [address] [id number] [address] [place] [address], [place] [address] Aug, [facility] [address] [id number] [address] [place] [address], [place] [address] Aug, [facility] [address] [id number] [address] [place] [address], [place] [address] Aug, [facility] [address] [id number] [address] [place] [address], [place] [address] Aug, [facility] [address] [id number] [address] [place] [address], [place] [address] Aug, [facility] [address] [id number] [address] [place] [address], [place] [address] Aug, [facility] [address] [id number] [address] [place] [address], [place] [address] Jul, [facility] [address] [id number] [address] [place] [address], [place] [address] Jul, [facility] [address] [id number] [address] [place] [address], [place] [address] Jun, [facility] [address] [id number] [address] [place] [address], [place] [address] Jun, [facility] [address] [id number] [address] [place] [address], [place] [address] Jun, [facility] [address] [id number] [address] [place] [address], [place] [address] Jun, [facility] [address] [id number] [address] [place] [address], [place] [address] Jun, [facility] [address] [id number] [address] [place] [address], [place] [address] Jun, [facility] [address] [id number] [address] [place] [address], [place] [address] May, [facility] [address] [id number] [address] [place] [address], [place] [address] May, [facility] [address] [id number] [address] [place] [address], [place] [address] Apr, [facility] [address] [id number] [address] [place] [address], [place] [address] Apr, [facility] [address] [id number] [address] [place] [address], [place] [address] Mar, [facility] [address] [id number] [address] [place] [address], [place] [address] Mar, [facility] [address] [id number] [address] [place] [address], [place] [address] Mar, [facility] [address] [id number] [address] [place] [address], [place] [address] Feb, [facility] [address] [id number] [address] [place] [address], [place] [address] Jan, [facility] [address] [id number] [address] [place] [address], [place] [address] December, [facility] [address] [id number] [address] [place] [address], [place] [address] December, [facility] [address] [id number] [address] [place] [address], [place] [address] 17 Dec, 2012 [facility] [address] [id number] [address] [place] [address], [place] [address] December, [facility] [address] [id number] [address] [place] [address], [place] [address] December, [facility] [address] [id number] [address] [place] [address], [place] [address] December, [facility] [address] [id number] [address] [place] [address], [place] [phone] Nov, [facility] [address] [id number] [address] [place] [address], [place] [phone] Nov, [facility] [address] [id number] [address] [place] [address], [place] [phone] Nov, [facility] [address] [id number] [address] [place] [address], [place] [phone] Oct, [facility] [address] [id number] [address] [place] [address], [place] [address] Jun, [facility] [address] [id number] [address] [place] [address], [place] [address] Jun, [facility] [address] [id number] [address] [place] [address], [place] [phone] Jun, [facility] [address] [id number] [address] [place] [address], [place] [phone] Jun, [facility] [address] [id number] [address] [place] [address], [place] [address] Apr, [facility] [address] [id number] [address] [place] [address], [place] [address] Mar, [facility] [address] [id number] [address] [place] [address], [place] [address] Mar, [facility] [address] [id number] [address] [place] [address], [place] [phone] Jan, [facility] [address] [id number] [address] [place] [phone] December, [facility] [address] [id number] [address] [place] [phone] Nov, [facility] [address] [id number] [address] [place] [phone] Nov, [facility] [address] [id number] [address] [place] [phone] Nov, [facility] [address] [id number] [address] [place] [phone] Nov, [facility] [address] [id number] [address] [place] [phone] Aug, [facility] [address] [id number] [address] [place] [phone] Aug, [facility] [address] [id number] [address] [place] [phone] Jul, [facility] [address] [id number] [address] [place] [phone] Jun, [facility] [address] [id number] [address] [place] [phone] Jun, [facility] [address] [id number] [address] [place] [phone] Apr, [facility] [address] [id number] [address] [place] [phone] Feb, IMMUNIZATIONS No Known Immunizations SOCIAL HISTORY Never Assessed REASON FOR VISIT Controlled Med Refill 03/10/18 PLAN OF CARE VITAL SIGNS MEDICATIONS Medication Instructions Dosage Frequency Start Date End Date Duration S tatus Ambien 10 MG Orally Once a day 1 tablet at bedtime as needed 24h Jul, 28 days Active Adderall XR 20 MG Orally Once a day 2 capsules in the morning 24h Feb, 28 days Active RESULTS No Results PROCEDURES No Known procedures INSTRUCTIONS MEDICATIONS ADMINISTERED No Known Medications MEDICAL (GENERAL) HISTORY Type Description Date Medical History Hypertension Medical History ADHD Medical History depression Medical History anxiety Surgical History section Surgical History collar bone repair
--- OUTSIDE RECORDS SUMMARY | 2020-02-11 01:35 | XMS REPORT ---
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 Name Role Phone MARI GALARZA Unavailable PROBLEMS Type Condition ICD9-CM Code SOS59-CC Code Onset Dates Condition S tatus SNOMED Code Problem Seasonal allergies J30.2 Active 4 09435712 Problem Essential hypertension I10 Active 57148586 Problem Major depressive disorder, recurrent episode, in full remission F33.42 Active 636790197 Problem Primary insomnia F51.01 Active 397 2004 Problem ADHD, predominantly inattentive type F90.0 Active [id number] ALLERGIES No Information ENCOUNTERS Encounter Location Date Diagnosis [place] [address] [place] [id number] [address] [place] [phone] May, [place] [address] [facility] [id number] [address] [place] [address] Apr, ADHD, predominantly inattent randall type F90.0 and Major depressive disorder, recurrent episode, in full remission F33.42 [place] [address] [place] [id number] [address] [place] [address] Mar, ADHD, predominantly inattent randall type F90.0 and Primary insomnia F51.01 [place] [address] [place] [id number] [address] [place] [address] Mar, [place] [address] [place] [id number] [address] [place] [address] Mar, ADHD, predominantly inattent randall type F90.0 and Primary insomnia F51.01 [place] [address] [facility] [id number] [address] [place] [address] Feb, ADHD, predominantly inattent randall type F90.0 and Primary insomnia F51.01 [facility] [address] [id number] [address] [place] [address] Jan, ADHD, predominantly inattent randall type F90.0 and Primary insomnia F51.01 [facility] [address] [id number] [address] [place] [address] December, Seasonal allergies J30.2 and Post-nasal drip R09.82 [facility] [address] [facility] [id number] [address] [place] [id number] December, ADHD, predominantly inattent randall type F90.0 and Primary insomnia F51.01 [place] [address] [facility] [id number] [address] [place] [address] Nov, ADHD, predominantly inattent randall type F90.0 [place] [address] [facility] [id number] [address] [place] [address] Oct, ADHD, predominantly inattent randall type F90.0 [facility] [address] [facility] [id number] [address] [place] [address] Oct, ADHD, predominantly inattent randall type F90.0 ; Primary insomnia F51.01 and Screening, lipid Z13.220 [place] [address] [facility] [id number] [address] [place] [address] Sep, ADHD, predominantly inattent randall type F90.0 [facility] [address] [facility] [id number] [address] [place] [address] Aug, ADHD, predominantly inattent randall type F90.0 and Primary insomnia F51.01 [facility] [address] [facility] [id number] [address] [place] [address] Jul, ADHD, predominantly inattent randall type F90.0 [facility] [address] [facility] [id number] [address] [place] [address] Jul, Primary insomnia F51.01 and ADHD, predominantly inattentive type F90.0 [place] [address] [id number] [address] [place] [address] Jun, ADHD, predominantly inattent randall type F90.0 [facility] [address] [id number] [address] [place] [address] May, ADHD, predominantly inattent randall type F90.0 [facility] [address] [id number] [address] [place] [address] Apr, ADHD, predominantly inattent randall type F90.0 [facility] [address] [id number] [address] [place] [address] Mar, ADHD, predominantly inattent randall type F90.0 ; Primary insomnia F51.01 ; Major depressive disorder, recurrent episode, in full remission F33.42 and Acne comedone L70.0 [facility] [address] [id number] [address] [place] [address] Mar, Major depressive disorder, r ecurrent episode, in full remission F33.42 and ADHD, predominantly inattentive type F90.0 [facility] [address] [id number] [address] [place] [address] Feb, ADHD, predominantly inattent randall type F90.0 [facility] [address] [id number] [address] [place] [address] Feb, Primary insomnia F51.01 [facility] [address] [facility] [id number] [address] [place] [address] Jan, ADHD, predominantly inattent randall type F90.0 and Primary insomnia F51.01 [facility] [address] [id number] [address] [place] [address] December, ADHD, predominantly inattent randall type F90.0 and Primary insomnia F51.01 [facility] [address] [id number] [address] [place] [address] Oct, ADHD, predominantly inattent randall type F90.0 and Primary insomnia F51.01 [facility] [address] [facility] [id number] [address] [place] [address] Sep, ADHD, predominantly inattent randall type F90.0 and Primary insomnia F51.01 [facility] [address] [facility] [id number] [address] [place] [address] Aug, ADHD, predominantly inattent randall type F90.0 and Primary insomnia F51.01 [place] [address] [place] [id number] [address] [place] [address] Jul, Major depressive disorder, r ecurrent episode, in full remission F33.42 ; ADHD, predominantly inattentive type F90.0 ; Primary insomnia F51.01 ; Acute non-recurrent maxillary sinusitis J01.00 and Screening, lipid Z13.220 [facility] [address] [facility] [id number] [address] [place] [address] Jun, Acute non-recurrent maxillar y sinusitis J01.00 [place] [address] [facility] [id number] [address] [place] [address] Jun, ADHD, predominantly inattent randall type F90.0 [place] [address] [facility] [id number] [address] [place] [address] May, [facility] [address] [place] [id number] [address] [place] [address] Apr, [facility] [address] [facility] [id number] [address] [place] [address] Feb, Rash R21 and Scabies B86 [facility] [address] [facility] [id number] [address] [place] [address] Feb, ADHD, predominantly inattent randall type F90.0 and Major depressive disorder, recurrent episode, in full remission F33.42 [facility] [address] [facility] [id number] [address] [place] [address] Feb, [facility] [address] [facility] [id number] [address] [place] [address] Oct, [facility] [address] [id number] [address] [place] [address] Sep, [facility] [address] [id number] [address] [place] [address] Sep, [facility] [address] [id number] [address] [place] [address] Aug, [facility] [address] [id number] [address] [place] [address] Jul, [facility] [address] [id number] [address] [place] [address] Jun, [facility] [address] [id number] [address] [place] [address] May, [facility] [address] [id number] [address] [place] [address] May, ADHD, predominantly inattent randall type F90.0 and Major depressive disorder, recurrent episode, in full remission F33.42 [facility] [address] [id number] [address] [place] [address] Feb, Major depressive disorder, r ecurrent episode, moderate 296.32 [facility] [address] [id number] [address] [place] [address] Feb, [facility] [address] [id number] [address] [place] [address] Jan, [facility] [address] [id number] [address] [place] [address] Jan, [facility] [address] [id number] [address] [place] [address] December, [facility] [address] [id number] [address] [place] [address] Nov, [facility] [address] [id number] [address] [place] [address] Nov, [facility] [address] [id number] [address] [place] [address], [place] [address] Oct, [facility] [address] [id number] [address] [place] [address], [place] [address] Oct, [facility] [address] [id number] [address] [place] [address], [place] [address] Sep, [facility] [address] [id number] [address] [place] [address], [place] [address] Sep, [facility] [address] [id number] [address] [place] [address], [place] [address] Sep, [facility] [address] [id number] [address] [place] [address], [place] [address] Sep, [facility] [address] [id number] [address] [place] [address], [place] [address] Aug, [facility] [address] [id number] [address] [place] [address], [place] [address] Aug, [facility] [address] [id number] [address] [place] [address], [place] [address] Aug, [facility] [address] [id number] [address] [place] [address], [place] [address] Aug, [facility] [address] [id number] [address] [place] [address], [place] [address] Aug, [facility] [address] [id number] [address] [place] [address], [place] [address] Aug, [facility] [address] [id number] [address] [place] [address], [place] [address] Jul, [facility] [address] [id number] [address] [place] [address], [place] [address] Jul, [facility] [address] [id number] [address] [place] [address], [place] [address] Jun, [facility] [address] [id number] [address] [place] [address], [place] [address] Jun, [facility] [address] [id number] [address] [place] [address], [place] [address] May, [facility] [address] [id number] [address] [place] [address], [place] [address] May, [facility] [address] [id number] [address] [place] [address], [place] [address] Apr, [facility] [address] [id number] [address] [place] [address], [place] [address] Apr, [facility] [address] [id number] [address] [place] [address], [place] [address] Apr, [facility] [address] [id number] [address] [place] [address], [place] [address] Mar, [facility] [address] [id number] [address] [place] [address], [place] [address] Mar, [facility] [address] [id number] [address] [place] [address], [place] [address] Mar, [facility] [address] [id number] [address] [place] [address], [place] [address] Mar, [facility] [address] [id number] [address] [place] [address], [place] [address] Feb, [facility] [address] [id number] [address] [place] [address], [place] [address] Feb, [facility] [address] [id number] [address] [place] [address], [place] [address] Feb, [facility] [address] [id number] [address] [place] [address], [place] [address] Feb, [facility] [address] [id number] [address] [place] [address], [place] [address] Feb, [facility] [address] [id number] [address] [place] [address], [place] [address] Feb, [facility] [address] [id number] [address] [place] [address], [place] [address] Jan, [facility] [address] [id number] [address] [place] [address], [place] [address] Jan, [facility] [address] [id number] [address] [place] [address], [place] [address] Jan, [facility] [address] [id number] [address] [place] [address], [place] [address] Jan, [facility] [address] [id number] [address] [place] [address], [place] [address] December, [facility] [address] [id number] [address] [place] [address], [place] [address] December, [facility] [address] [id number] [address] [place] [address], [place] [address] December, [facility] [address] [id number] [address] [place] [address], [place] [address] December, [facility] [address] [id number] [address] [place] [address], [place] [address] December, [facility] [address] [id number] [address] [place] [address], [place] [address] December, [facility] [address] [id number] [address] [place] [address], [place] [address] December, [facility] [address] [id number] [address] [place] [address], [place] [address] December, [facility] [address] [id number] [address] [place] [address], [place] [address] December, [facility] [address] [id number] [address] [place] [address], [place] [address] December, [facility] [address] [id number] [address] [place] [address], [place] [address] Nov, [facility] [address] [id number] [address] [place] [address], [place] [address] Nov, [facility] [address] [id number] [facility] [place] [address] Oct, [facility] [address] [id number] [facility] [place] [address] Oct, [facility] [address] [id number] [facility] [place] [address] Oct, [facility] [address] [id number] [address] [place] [address], [place] [address] Oct, [facility] [address] [id number] [address] [place] [address], [place] [address] Oct, [facility] [address] [id number] [address] [place] [address], [place] [address] Oct, [facility] [address] [id number] [address] [place] [address], [place] [address] Aug, [facility] [address] [id number] [address] [place] [address], [place] [address] Aug, [facility] [address] [id number] [address] [place] [address], [place] [address] Aug, [facility] [address] [id number] [address] [place] [address], [place] [address] Aug, [facility] [address] [id number] [address] [place] [address], [place] [address] Aug, [facility] [address] [id number] [address] [place] [address], [place] [address] Aug, [facility] [address] [id number] [address] [place] [address], [place] [address] Aug, [facility] [address] [id number] [address] [place] [address], [place] [address] Aug, [facility] [address] [id number] [address] [place] [address], [place] [address] Jul, [facility] [address] [id number] [address] [place] [address], [place] [address] Jul, [facility] [address] [id number] [address] [place] [address], [place] [address] Jun, [facility] [address] [id number] [address] [place] [address], [place] [address] Jun, [facility] [address] [id number] [address] [place] [address], [place] [address] Jun, [facility] [address] [id number] [address] [place] [address], [place] [address] Jun, [facility] [address] [id number] [address] [place] [address], [place] [address] Jun, [facility] [address] [id number] [address] [place] [address], [place] [address] Jun, [facility] [address] [id number] [address] [place] [address], [place] [address] May, [facility] [address] [id number] [address] [place] [address], [place] [address] May, [facility] [address] [id number] [address] [place] [address], [place] [address] Apr, [facility] [address] [id number] [address] [place] [address], [place] [address] Apr, [facility] [address] [id number] [address] [place] [address], [place] [address] Mar, [facility] [address] [id number] [address] [place] [address], [place] [address] Mar, [facility] [address] [id number] [address] [place] [address], [place] [address] Mar, [facility] [address] [id number] [address] [place] [address], [place] [address] Feb, [facility] [address] [id number] [address] [place] [address], [place] [address] Jan, [facility] [address] [id number] [address] [place] [address], [place] [address] December, [facility] [address] [id number] [address] [place] [address], [place] [address] December, [facility] [address] [id number] [address] [place] [address], [place] [address] December, [facility] [address] [id number] [address] [place] [address], [place] [address] December, [facility] [address] [id number] [address] [place] [address], [place] [address] December, [facility] [address] [id number] [address] [place] [address], [place] [address] December, [facility] [address] [id number] [address] [place] [address], [place] [address] Nov, [facility] [address] [id number] [address] [place] [address], [place] [address] Nov, [facility] [address] [id number] [address] [place] [address], [place] [address] 08 Nov, 2012 [facility] [address] [id number] [address] [place] [address], [place] [address] 05 Oct, 2012 [facility] [address] [id number] [address] [place] [address], [place] [address] 14 Jun, 2012 [facility] [address] [id number] [address] [place] [address], [place] [address] 14 Jun, 2012 [facility] [address] [id number] [address] [place] [address], [place] [address] Jun, [facility] [address] [id number] [address] [place] [address], [place] [phone] Jun, [facility] [address] [id number] [address] [place] [address], [place] [phone] 18 Apr, 2012 [facility] [address] [id number] [address] [place] [address], [place] [phone] Mar, [facility] [address] [id number] [address] [place] [id number] Mar, [facility] [address] [id number] [address] [place] [phone] Jan, [facility] [address] [id number] [address] [place] [phone] December, [facility] [address] [id number] [address] [place] [id number] Nov, [facility] [address] [id number] [address] [place] [id number] Nov, [facility] [address] [id number] [address] [place] [phone] Nov, [facility] [address] [id number] [address] [place] [phone] Nov, [facility] [address] [id number] [address] [place] [phone] Aug, [facility] [address] [id number] [address] [place] [phone] Aug, [facility] [address] [id number] [address] [place] [phone] Jul, [facility] [address] [id number] [address] [place] [phone] Jun, [facility] [address] [id number] [address] [place] [phone] Jun, [facility] [address] [id number] [address] [place] [phone] Apr, [facility] [address] [id number] [address] [place] [phone] Feb, IMMUNIZATIONS No Known Immunizations SOCIAL HISTORY Never Assessed REASON FOR VISIT Controlled Med Refill 04/07/18 PLAN OF CARE VITAL SIGNS MEDICATIONS Medication Instructions Dosage Frequency Start Date End Date Duration S dante Ambien 10 MG Orally Once a day 1 tablet at bedtime as needed 24h Jul, 28 days Active Adderall XR 20 MG Orally Once a day 2 capsules in the morning 24h Mar, 28 days Active RESULTS No Results PROCEDURES No Known procedures INSTRUCTIONS MEDICATIONS ADMINISTERED No Known Medications MEDICAL (GENERAL) HISTORY Type Description Date Medical History Hypertension Medical History ADHD Medical History depression Medical History anxiety Surgical History section Surgical History collar bone repair
--- OUTSIDE RECORDS SUMMARY | 2020-02-11 01:35 | XMS REPORT ---
Author Author Elaine RAGSDALE Organization [facility] Address [address] [place] [address] Care Team Providers Care Associate Juvenile Court Judge Name Role Phone SHAMAR PORTILLOLUIS MIGUELCY Unavailable PROBLEMS Type Condition ICD9-CM Code SUR64-EF Code Onset Dates Condition S tatus SNOMED Code Problem Seasonal allergies J30.2 Active 4 25486658 Problem Essential hypertension I10 Active 83123011 Problem Major depressive disorder, recurrent episode, in full remission F33.42 Active 429875848 Problem Primary insomnia F51.01 Active 397 2004 Problem ADHD, predominantly inattentive type F90.0 Active 64228235 ALLERGIES No Known Allergies ENCOUNTERS Encounter Location Date Diagnosis [facility] [address] [address] Apr, [facility] [address] [id number] [address] [place] [address] Mar, [facility] [address] [address] Mar, ADHD, predominantly inattent randall type F90.0 and Primary insomnia F51.01 [facility] [address] [id number] [address] [place] [address] Feb, ADHD, predominantly inattent randall type F90.0 and Primary insomnia F51.01 [facility] [address] [id number] [address] [place] [address] Jan, ADHD, predominantly inattent randall type F90.0 and Primary insomnia F51.01 [facility] [address] [id number] [address] [place] [address] December, Seasonal allergies J30.2 and Post-nasal drip R09.82 [facility] [address] [id number] [address] [place] [address] December, ADHD, predominantly inattent randall type F90.0 and Primary insomnia F51.01 [facility] [address] [id number] [address] [place] [address] Nov, ADHD, predominantly inattent randall type F90.0 [facility] [address] [id number] [address] [place] [id number] Oct, ADHD, predominantly inattent randall type F90.0 [facility] [address] [id number] [address] [place] [address] Oct, ADHD, predominantly inattent randall type F90.0 ; Primary insomnia F51.01 and Screening, lipid Z13.220 [facility] [address] [facility] [id number] [address] [place] [address] Sep, ADHD, predominantly inattent randall type F90.0 [facility] [address] [id number] [address] [place] [id number] Aug, ADHD, predominantly inattent randall type F90.0 and Primary insomnia F51.01 [facility] [address] [id number] [address] [place] [phone] Jul, ADHD, predominantly inattent randall type F90.0 [facility] [address] [id number] [address] [place] [address] Jul, Primary insomnia F51.01 and ADHD, predominantly inattentive type F90.0 [facility] [address] [id number] [address] [place] [address] Jun, ADHD, predominantly inattent randall type F90.0 [facility] [address] [facility] [id number] [address] [place] [phone] May, ADHD, predominantly inattent randall type F90.0 [facility] [address] [facility] [id number] [address] [place] [address] Apr, ADHD, predominantly inattent randall type F90.0 [facility] [address] [id number] [address] [place] [address] Mar, ADHD, predominantly inattent randall type F90.0 ; Primary insomnia F51.01 ; Major depressive disorder, recurrent episode, in full remission F33.42 and Acne comedone L70.0 [facility] [address] [id number] [address] [place] [id number] Mar, Major depressive disorder, r ecurrent episode, in full remission F33.42 and ADHD, predominantly inattentive type F90.0 [facility] [address] [id number] [address] [place] [id number] Feb, ADHD, predominantly inattent randall type F90.0 [facility] [address] [id number] [address] [place] [address] Feb, Primary insomnia F51.01 [facility] [address] [id number] [address] [place] [id number] Jan, ADHD, predominantly inattent randall type F90.0 and Primary insomnia F51.01 [facility] [address] [id number] [address] [place] [id number] December, ADHD, predominantly inattent randall type F90.0 and Primary insomnia F51.01 [facility] [address] [id number] [address] [place] [id number] Oct, ADHD, predominantly inattent randall type F90.0 and Primary insomnia F51.01 [facility] [address] [id number] [address] [place] [address] Sep, ADHD, predominantly inattent randall type F90.0 and Primary insomnia F51.01 [facility] [address] [id number] [address] [place] [address] Aug, ADHD, predominantly inattent randall type F90.0 and Primary insomnia F51.01 [facility] [address] [id number] [address] [place] [id number] Jul, Major depressive disorder, r ecurrent episode, in full remission F33.42 ; ADHD, predominantly inattentive type F90.0 ; Primary insomnia F51.01 ; Acute non-recurrent maxillary sinusitis J01.00 and Screening, lipid Z13.220 [facility] [address] [id number] [address] [place] [address] Jun, Acute non-recurrent maxillar y sinusitis J01.00 [facility] [address] [id number] [address] [place] [id number] Jun, ADHD, predominantly inattent randall type F90.0 [facility] [address] [id number] [address] [place] [address] May, [facility] [address] [id number] [address] [place] [address] Apr, [facility] [address] [id number] [address] [place] [phone] Feb, Rash R21 and Scabies B86 [facility] [address] [id number] [address] [place] [id number] Feb, ADHD, predominantly inattent randall type F90.0 and Major depressive disorder, recurrent episode, in full remission F33.42 [facility] [address] [id number] [address] [place] [phone] Feb, [facility] [address] [id number] [address] [place] [phone] Oct, [facility] [address] [id number] [address] [place] [id number] Sep, [facility] [address] [facility] [id number] [address] [place] [phone] Sep, [facility] [address] [facility] [id number] [address] [place] [id number] Aug, [facility] [address] [id number] [address] [place] [phone] Jul, [facility] [address] [id number] [address] [place] [id number] Jun, [facility] [address] [id number] [address] [place] [phone] May, [facility] [address] [id number] [address] [place] [id number] May, ADHD, predominantly inattent randall type F90.0 and Major depressive disorder, recurrent episode, in full remission F33.42 [facility] [address] [id number] [address] [place] [id number] Feb, Major depressive disorder, r ecurrent episode, moderate 296.32 [facility] [address] [id number] [address] [place] [id number] Feb, [facility] [address] [id number] [address] [place] [phone] Jan, [facility] [address] [id number] [address] [place] [id number] Jan, [facility] [address] [id number] [address] [place] [id number] December, [facility] [address] [id number] [address] [place] [id number] Nov, [facility] [address] [id number] [address] [place] [phone] Nov, [facility] [address] [id number] [address] [place] [phone] Oct, [facility] [address] [id number] [address] [place] [phone] Oct, [facility] [address] [id number] [address] [place] [phone] Sep, [facility] [address] [id number] [address] [place] [phone] Sep, [facility] [address] [id number] [address] [place] [address], [place] [address] Sep, [facility] [address] [id number] [address] [place] [address], [place] [address] Sep, [facility] [address] [id number] [address] [place] [address], [place] [address] Aug, [facility] [address] [id number] [address] [place] [address], [place] [address] Aug, [facility] [address] [id number] [address] [place] [address], [place] [address] Aug, [facility] [address] [id number] [address] [place] [address], [place] [address] Aug, [facility] [address] [id number] [address] [place] [address], [place] [address] Aug, [facility] [address] [id number] [address] [place] [address], [place] [address] Aug, [facility] [address] [id number] [address] [place] [address], [place] [address] Jul, [facility] [address] [id number] [address] [place] [address], [place] [address] Jul, [facility] [address] [id number] [address] [place] [address], [place] [address] Jun, [facility] [address] [id number] [address] [place] [phone] Jun, [facility] [address] [id number] [address] [place] [address], [place] [address] May, [facility] [address] [id number] [address] [place] [address], [place] [address] May, [facility] [address] [id number] [address] [place] [address], [place] [address] Apr, [facility] [address] [id number] [facility] [place] [place] [address] Apr, [facility] [address] [id number] [address] [place] [address], [place] [address] Apr, [facility] [address] [id number] [address] [place] [address], [place] [address] Mar, [facility] [address] [id number] [address] [place] [address], [place] [address] Mar, [facility] [address] [id number] [address] [place] [address], [place] [address] Mar, [facility] [address] [id number] [address] [place] [address], [place] [address] Mar, [facility] [address] [id number] [address] [place] [address], [place] [address] Feb, [facility] [address] [id number] [address] [place] [address], [place] [address] Feb, [facility] [address] [id number] [address] [place] [address], [place] [address] Feb, [facility] [address] [id number] [address] [place] [address], [place] [address] Feb, [facility] [address] [id number] [address] [place] [address], [place] [address] Feb, [facility] [address] [id number] [address] [place] [address], [place] [address] Feb, [facility] [address] [id number] [address] [place] [address], [place] [address] Jan, [facility] [address] [id number] [address] [place] [address], [place] [address] Jan, [facility] [address] [id number] [address] [place] [address], [place] [address] Jan, [facility] [address] [id number] [address] [place] [address], [place] [address] Jan, [facility] [address] [id number] [facility] [place] [place] [address] December, [facility] [address] [id number] [facility] [place] [place] [address] December, [facility] [address] [id number] [facility] [place] [place] [address] December, [facility] [address] [id number] [address] [place] [address], [place] [address] December, [facility] [address] [id number] [address] [place] [address], [place] [address] December, [facility] [address] [id number] [address] [place] [address], [place] [address] December, [facility] [address] [id number] [address] [place] [address], [place] [address] December, [facility] [address] [id number] [address] [place] [address], [place] [address] December, [facility] [address] [id number] [address] [place] [address], [place] [address] December, [facility] [address] [id number] [address] [place] [address], [place] [address] December, [facility] [address] [id number] [address] [place] [address], [place] [address] Nov, [facility] [address] [id number] [address] [place] [address], [place] [address] Nov, [facility] [address] [id number] [address] [place] [address], [place] [address] Oct, [facility] [address] [id number] [address] [place] [address], [place] [address] Oct, [facility] [address] [id number] [address] [place] [address], [place] [address] Oct, [facility] [address] [id number] [address] [place] [address], [place] [address] Oct, [facility] [address] [id number] [address] [place] [address], [place] [address] Oct, [facility] [address] [id number] [address] [place] [address], [place] [address] Oct, [facility] [address] [id number] [address] [place] [address], [place] [address] Aug, [facility] [address] [id number] [address] [place] [address], [place] [address] Aug, [facility] [address] [id number] [address] [place] [address], [place] [address] Aug, [facility] [address] [id number] [address] [place] [address], [place] [address] Aug, [facility] [address] [id number] [address] [place] [address], [place] [address] Aug, [facility] [address] [id number] [address] [place] [address], [place] [address] Aug, [facility] [address] [id number] [address] [place] [address], [place] [address] Aug, [facility] [address] [id number] [address] [place] [address], [place] [address] Aug, [facility] [address] [id number] [address] [place] [address], [place] [address] Jul, [facility] [address] [id number] [address] [place] [address], [place] [address] Jul, [facility] [address] [id number] [address] [place] [address], [place] [address] Jun, [facility] [address] [id number] [address] [place] [address], [place] [address] Jun, [facility] [address] [id number] [address] [place] [address], [place] [address] Jun, [facility] [address] [id number] [address] [place] [address], [place] [address] Jun, [facility] [address] [id number] [address] [place] [address], [place] [address] Jun, [facility] [address] [id number] [address] [place] [address], [place] [address] Jun, [facility] [address] [id number] [address] [place] [address], [place] [address] May, [facility] [address] [id number] [address] [place] [address], [place] [address] May, [facility] [address] [id number] [address] [place] [address], [place] [address] Apr, [facility] [address] [id number] [address] [place] [address], [place] [address] Apr, [facility] [address] [id number] [address] [place] [address], [place] [address] Mar, [facility] [address] [id number] [address] [place] [address], [place] [address] Mar, [facility] [address] [id number] [address] [place] [address], [place] [address] Mar, [facility] [address] [id number] [address] [place] [address], [place] [address] Feb, [facility] [address] [id number] [address] [place] [address], [place] [address] Jan, [facility] [address] [id number] [address] [place] [address], [place] [address] December, [facility] [address] [id number] [address] [place] [address], [place] [address] December, [facility] [address] [id number] [address] [place] [address], [place] [address] December, [facility] [address] [id number] [address] [place] [address], [place] [address] December, [facility] [address] [id number] [address] [place] [address], [place] [address] December, [facility] [address] [id number] [address] [place] [address], [place] [address] December, [facility] [address] [id number] [address] [place] [address], [place] [address] Nov, [facility] [address] [id number] [address] [place] [address], [place] [address] Nov, [facility] [address] [id number] [address] [place] [address], [place] [address] Nov, [facility] [address] [id number] [address] [place] [address], [place] [address] Oct, [facility] [address] [id number] [address] [place] [address], [place] [address] Jun, [facility] [address] [id number] [address] [place] [address], [place] [address] Jun, [facility] [address] [id number] [address] [place] [address], [place] [address] Jun, [facility] [address] [id number] [address] [place] [address], [place] [address] Jun, [facility] [address] [id number] [address] [place] [address], [place] [address] Apr, [facility] [address] [id number] [address] [place] [address], [place] [address] Mar, [facility] [address] [id number] [address] [place] [address], [place] [address] Mar, [facility] [address] [id number] [address] [place] [address], [place] [address] Jan, [facility] [address] [id number] [address] [place] [address], [place] [address] December, [facility] [address] [id number] [address] [place] [address] 16 Nov, 2011 [facility] [address] [id number] [address] [place] [address] Nov, [facility] [address] [id number] [address] [place] [address] Nov, [facility] [address] [id number] [address] [place] [address] Nov, [facility] [address] [id number] [address] [place] [address] Aug, [facility] [address] [id number] [address] [place] [address] Aug, [facility] [address] [id number] [address] [place] [address] Jul, [facility] [address] [id number] [address] [place] [address] Jun, [facility] [address] [id number] [address] [place] [phone] Jun, [facility] [address] [id number] [address] [place] [phone] Apr, [facility] [address] [id number] [address] [place] [phone] Feb, IMMUNIZATIONS No Known Immunizations SOCIAL HISTORY Never Assessed REASON FOR VISIT cough, congestion, headache since last noc. needs a note for work. [email or web address] PLAN OF CARE Activity Details Follow Up prn Reason: VITAL SIGNS Height 64 in 2018-01-14 Weight 194.0 lbs 2018-01-14 Temperature 98.1 degrees Fahrenheit 2018-01-14 Heart Rate 80 bpm 2018-01-14 Respiratory Rate 20 2018-01-14 BMI 33.30 kg/m2 2018-01-14 Blood pressure systolic 132 mmHg 2018-01-14 Blood pressure diastolic 82 mmHg 2018-01-14 MEDICATIONS Medication Instructions Dosage Frequency Start Date End Date Duration S tatus PredniSONE 5 MG (21) Orally Once a day take each days dose at the same time daily 24h December, Active Ana Allergy 180 MG Orally Once a day 1 tablet as needed 24h December, Jan, 30 day(s) Active Effexor XR 150 MG Orally Once a day 2 capsules 24h Aug, 90 days Active Ambien 10 MG Orally Once a day 1 tablet at bedtime as needed 24h Jul, 28 days Active Adderall XR 20 MG Orally Once a day 2 capsules in the morning 24h December, 28 days Active Flonase 50 MCG/ACT Nasally twice a day 1 spray in each nostril 12h December, 07 days Active RESULTS No Results PROCEDURES No Known procedures INSTRUCTIONS MEDICATIONS ADMINISTERED No Known Medications MEDICAL (GENERAL) HISTORY Type Description Date Medical History Hypertension Medical History ADHD Medical History depression Medical History anxiety Surgical History section Surgical History collar bone repair
--- OUTSIDE RECORDS SUMMARY | 2020-02-11 01:36 | XMS REPORT ---
Author Author Elaine GALARZA Organization [facility] [place] Address [address] [place] [address] Care Team Providers Care Terminal System Operator Name Role Phone MARI GALARZA Unavailable PROBLEMS Type Condition ICD9-CM Code XCT55-AU Code Onset Dates Condition S tatus SNOMED Code Problem Seasonal allergies J30.2 Active 4 76660937 Problem Essential hypertension I10 Active 98352102 Problem Major depressive disorder, recurrent episode, in full remission F33.42 Active 255707445 Problem Primary insomnia F51.01 Active 397 2004 Problem ADHD, predominantly inattentive type F90.0 Active [id number] ALLERGIES No Information ENCOUNTERS Encounter Location Date Diagnosis [facility] [place] [address] [id number] [address] [place] [id number] Feb, ADHD, predominantly inattent randall type F90.0 and Primary insomnia F51.01 [facility] [place] [address] [id number] 08 Jan, 2018 ADHD, predominantly inattent randall type F90.0 and Primary insomnia F51.01 [facility] [address] [id number] [address] [place] [address] December, Seasonal allergies J30.2 and Post-nasal drip R09.82 [facility] [place] [address] [id number] [address] [place] [address] December, ADHD, predominantly inattent randall type F90.0 and Primary insomnia F51.01 [facility] [place] [address] [id number] [address] [place] [address] Nov, ADHD, predominantly inattent randall type F90.0 [facility] [place] [address] [id number] [address] [place] [address] Oct, ADHD, predominantly inattent randall type F90.0 [facility] [place] [address] [id number] [address] [place] [address] Oct, ADHD, predominantly inattent randall type F90.0 ; Primary insomnia F51.01 and Screening, lipid Z13.220 [facility] [place] [address] [id number] [address] [place] [address] Sep, ADHD, predominantly inattent randall type F90.0 [facility] [place] [address] [id number] [address] [place] [address] Aug, ADHD, predominantly inattent randall type F90.0 and Primary insomnia F51.01 [facility] [place] [address] [id number] [address] [place] [address] Jul, ADHD, predominantly inattent randall type F90.0 [facility] [place] [address] [id number] [address] [place] [id number] Jul, Primary insomnia F51.01 and ADHD, predominantly inattentive type F90.0 [facility] [place] [address] [id number] [address] [place] [address] Jun, ADHD, predominantly inattent randall type F90.0 [facility] [place] [address] [id number] [address] [place] [address] May, ADHD, predominantly inattent randall type F90.0 [facility] [place] [address] [id number] [address] [place] [address] Apr, ADHD, predominantly inattent randall type F90.0 [facility] [place] [address] [id number] [address] [place] [address] Mar, ADHD, predominantly inattent randall type F90.0 ; Primary insomnia F51.01 ; Major depressive disorder, recurrent episode, in full remission F33.42 and Acne comedone L70.0 [facility] [place] [address] [id number] [address] [place] [address] Mar, Major depressive disorder, r ecurrent episode, in full remission F33.42 and ADHD, predominantly inattentive type F90.0 [place] [address] [facility] [id number] [address] [place] [id number] Feb, ADHD, predominantly inattent randall type F90.0 [place] [address] [facility] [id number] [address] [place] [address] Feb, Primary insomnia F51.01 [facility] [place] [address] [facility] [id number] [address] [place] [address] Jan, ADHD, predominantly inattent randall type F90.0 and Primary insomnia F51.01 [place] [address] [facility] [id number] [address] [place] [address] December, ADHD, predominantly inattent randall type F90.0 and Primary insomnia F51.01 [place] [address] [id number] [address] [place] [address] Oct, ADHD, predominantly inattent randall type F90.0 and Primary insomnia F51.01 [facility] [place] [address] [facility] [id number] [address] [place] [address] Sep, ADHD, predominantly inattent randall type F90.0 and Primary insomnia F51.01 [place] [address] [facility] [id number] [address] [place] [address] Aug, ADHD, predominantly inattent randall type F90.0 and Primary insomnia F51.01 [facility] [place] [address] [facility] [id number] [address] [place] [address] Jul, Major depressive disorder, r ecurrent episode, in full remission F33.42 ; ADHD, predominantly inattentive type F90.0 ; Primary insomnia F51.01 ; Acute non-recurrent maxillary sinusitis J01.00 and Screening, lipid Z13.220 [facility] [address] [facility] [id number] [address] [place] [address] Jun, Acute non-recurrent maxillar y sinusitis J01.00 [facility] [place] [address] [id number] [address] [place] [address] Jun, ADHD, predominantly inattent randall type F90.0 [facility] [place] [address] [id number] [address] [place] [address] May, [facility] [place] [address] [id number] [address] [place] [address] Apr, [facility] [address] [id number] [address] [place] [address] Feb, Rash R21 and Scabies B86 [facility] [place] [address] [id number] [address] [place] [address] Feb, ADHD, predominantly inattent randall type F90.0 and Major depressive disorder, recurrent episode, in full remission F33.42 [facility] [place] [address] [id number] [address] [place] [address] Feb, [facility] [place] [address] [id number] [address] [place] [address] Oct, [facility] [place] [address] [id number] [address] [place] [id number] Sep, [facility] [place] [address] [id number] [address] [place] [address] Sep, [facility] [place] [address] [id number] [address] [place] [id number] Aug, [facility] [place] [address] [id number] [address] [place] [address] Jul, [facility] [place] [address] [id number] [address] [place] [phone] Jun, [facility] [place] [address] [id number] [address] [place] [address] May, [facility] [place] [address] [id number] [address] [place] [address] May, ADHD, predominantly inattent randall type F90.0 and Major depressive disorder, recurrent episode, in full remission F33.42 [facility] [place] [address] [id number] [address] [place] [id number] Feb, Major depressive disorder, r ecurrent episode, moderate 296.32 [facility] [place] [address] [id number] [address] [place] [address] Feb, [facility] [place] [address] [id number] [address] [place] [address] Jan, [facility] [place] [address] [id number] [address] [place] [id number] Jan, [facility] [place] [address] [id number] [address] [place] [address] December, [facility] [place] [address] [id number] [address] [place] [id number] Nov, [facility] [place] [address] [id number] [address] [place] [id number] Nov, [facility] [place] [address] [id number] [address] [place] [phone] Oct, [facility] [place] [address] [id number] [address] [place] [address] Oct, [facility] [place] [address] [id number] [address] [place] [phone] Sep, [facility] [place] [address] [id number] [address] [place] [id number] Sep, [facility] [place] [address] [id number] [address] [place] [phone] Sep, [facility] [address] [id number] [address] [place] [phone] Sep, [facility] [place] [address] [id number] [address] [place] [phone] Aug, [facility] [address] [id number] [address] [place] [address], [place] [address] Aug, [facility] [address] [id number] [address] [place] [address], [place] [address] Aug, [facility] [address] [id number] [address] [place] [address], [place] [address] Aug, [facility] [address] [id number] [address] [place] [address], [place] [address] Aug, [facility] [address] [id number] [address] [place] [address], [place] [address] Aug, [facility] [address] [id number] [address] [place] [address], [place] [address] Jul, [facility] [address] [id number] [address] [place] [address], [place] [address] Jul, [facility] [address] [id number] [address] [place] [address], [place] [address] Jun, [facility] [address] [id number] [address] [place] [address], [place] [address] Jun, [facility] [address] [id number] [address] [place] [address], [place] [address] May, [facility] [address] [id number] [address] [place] [address], [place] [address] May, [facility] [address] [id number] [address] [place] [address], [place] [address] Apr, [facility] [address] [id number] [address] [place] [address], [place] [address] Apr, [facility] [address] [id number] [address] [place] [address], [place] [address] Apr, [facility] [address] [id number] [address] [place] [address], [place] [address] Mar, [facility] [address] [id number] [address] [place] [address], [place] [address] Mar, [facility] [address] [id number] [facility] [place] [address] Mar, [facility] [address] [id number] [address] [place] [address], [place] [address] Mar, [facility] [address] [id number] [address] [place] [address], [place] [address] Feb, [facility] [address] [id number] [address] [place] [address], [place] [address] Feb, [facility] [address] [id number] [address] [place] [address], [place] [address] Feb, [facility] [address] [id number] [address] [place] [address], [place] [address] Feb, [facility] [address] [id number] [address] [place] [address], [place] [address] Feb, [facility] [address] [id number] [address] [place] [address], [place] [address] Feb, [facility] [address] [id number] [address] [place] [address], [place] [address] Jan, [facility] [address] [id number] [address] [place] [address], [place] [address] Jan, [facility] [address] [id number] [address] [place] [address], [place] [address] Jan, [facility] [address] [id number] [address] [place] [address], [place] [address] Jan, [facility] [address] [id number] [address] [place] [address], [place] [address] December, [facility] [address] [id number] [address] [place] [address], [place] [address] December, [facility] [address] [id number] [address] [place] [address], [place] [address] December, [facility] [address] [id number] [address] [place] [address], [place] [address] December, [facility] [address] [id number] [facility] [place] [address] December, [facility] [address] [id number] [address] [place] [address], [place] [address] December, [facility] [address] [id number] [address] [place] [address], [place] [address] December, [facility] [address] [id number] [address] [place] [address], [place] [address] December, [facility] [address] [id number] [address] [place] [address], [place] [address] December, [facility] [address] [id number] [address] [place] [address], [place] [address] December, [facility] [address] [id number] [address] [place] [address], [place] [address] Nov, [facility] [address] [id number] [address] [place] [address], [place] [address] Nov, [facility] [address] [id number] [address] [place] [address], [place] [address] Oct, [facility] [address] [id number] [address] [place] [address], [place] [address] Oct, [facility] [address] [id number] [address] [place] [address], [place] [address] Oct, [facility] [address] [id number] [address] [place] [address], [place] [address] Oct, [facility] [address] [id number] [address] [place] [address], [place] [address] Oct, [facility] [address] [id number] [address] [place] [address], [place] [address] Oct, [facility] [address] [id number] [address] [place] [address], [place] [address] Aug, [facility] [address] [id number] [address] [place] [address], [place] [address] Aug, [facility] [address] [id number] [address] [place] [address], [place] [address] Aug, [facility] [address] [id number] [address] [place] [address], [place] [address] Aug, [facility] [address] [id number] [address] [place] [address], [place] [address] Aug, [facility] [address] [id number] [address] [place] [address], [place] [address] Aug, [facility] [address] [id number] [address] [place] [address], [place] [address] Aug, [facility] [address] [id number] [address] [place] [address], [place] [address] Aug, [facility] [address] [id number] [address] [place] [address], [place] [address] Jul, [facility] [address] [id number] [address] [place] [address], [place] [address] Jul, [facility] [address] [id number] [address] [place] [address], [place] [address] Jun, [facility] [address] [id number] [address] [place] [address], [place] [address] Jun, [facility] [address] [id number] [address] [place] [address], [place] [address] Jun, [facility] [address] [id number] [address] [place] [address], [place] [address] Jun, [facility] [address] [id number] [address] [place] [address], [place] [address] Jun, [facility] [address] [id number] [address] [place] [address], [place] [address] 07 Jun, 2013 [facility] [address] [id number] [address] [place] [address], [place] [address] May, [facility] [address] [id number] [address] [place] [address], [place] [address] May, [facility] [address] [id number] [address] [place] [address], [place] [address] Apr, [facility] [address] [id number] [address] [place] [address], [place] [address] Apr, [facility] [address] [id number] [address] [place] [address], [place] [address] Mar, [facility] [address] [id number] [address] [place] [address], [place] [address] Mar, [facility] [address] [id number] [address] [place] [address], [place] [address] Mar, [facility] [address] [id number] [address] [place] [address], [place] [address] Feb, [facility] [address] [id number] [address] [place] [address], [place] [address] Jan, [facility] [address] [id number] [address] [place] [address], [place] [address] December, [facility] [address] [id number] [address] [place] [address], [place] [address] December, [facility] [address] [id number] [address] [place] [address], [place] [address] December, [facility] [address] [id number] [address] [place] [address], [place] [address] December, [facility] [address] [id number] [address] [place] [address], [place] [address] December, [facility] [address] [id number] [address] [place] [address], [place] [address] December, [facility] [address] [id number] [address] [place] [address], [place] [address] Nov, [facility] [address] [id number] [address] [place] [address], [place] [address] 17 Nov, 2012 [facility] [address] [id number] [address] [place] [address], [place] [address] 08 Nov, 2012 [facility] [address] [id number] [address] [place] [address], [place] [address] 05 Oct, 2012 [facility] [address] [id number] [address] [place] [address], [place] [id number] 14 Jun, 2012 [facility] [address] [id number] [address] [place] [address], [place] [id number] 14 Jun, 2012 [facility] [address] [id number] [address] [place] [address], [place] [id number] Jun, [facility] [address] [id number] [address] [place] [address], [place] [id number] Jun, [facility] [address] [id number] [address] [place] [address], [place] [id number] 18 Apr, 2012 [facility] [address] [id number] [address] [place] [address], [place] [id number] Mar, [facility] [address] [id number] [address] [place] [address], [place] [id number] Mar, [facility] [address] [id number] [address] [place] [address], [place] [id number] Jan, [facility] [address] [id number] [address] [place] [address], [place] [id number] December, [facility] [address] [id number] [address] [place] [address], [place] [id number] 16 Nov, 2011 [facility] [address] [id number] [address] [place] [address], [place] [id number] Nov, [facility] [address] [id number] [address] [place] [address], [place] [id number] 05 Nov, 2011 [facility] [address] [id number] [address] [place] [address], [place] [id number] Nov, [facility] [place] [address] [id number] [address] [place] [id number] Aug, [facility] [place] [address] [id number] [address] [place] [id number] Aug, [facility] [place] [address] [id number] [address] [place] [id number] Jul, [facility] [place] [address] [id number] [address] [place] [id number] Jun, [facility] [place] [address] [id number] [address] [place] [id number] Jun, [facility] [place] [address] [id number] [address] [place] [id number] Apr, [facility] [place] [address] [facility] [id number] [address] [place] [phone] Feb, IMMUNIZATIONS No Known Immunizations SOCIAL HISTORY Never Assessed REASON FOR VISIT Controlled Med Refill 12/16/17 PLAN OF CARE VITAL SIGNS MEDICATIONS Medication Instructions Dosage Frequency Start Date End Date Duration S dante Adderall XR 20 MG Orally Once a day 2 capsules in the morning 24h Nov, 28 days Active RESULTS No Results PROCEDURES No Known procedures INSTRUCTIONS MEDICATIONS ADMINISTERED No Known Medications MEDICAL (GENERAL) HISTORY Type Description Date Medical History Hypertension Medical History ADHD Medical History depression Medical History anxiety Surgical History section Surgical History collar bone repair
--- OUTSIDE RECORDS SUMMARY | 2020-02-11 01:36 | XMS REPORT ---
Author Author Elaine GALARZA Organization [facility] Address [address] [place] [address] Care Team Providers Care Forklift Operator Name Role Phone MARI GALARZA Unavailable PROBLEMS Type Condition ICD9-CM Code [id number] Code Onset Dates Condition S tatus SNOMED Code Problem Seasonal allergies J30.2 Active 4 00125594 Problem Essential hypertension I10 Active 61904233 Problem Major depressive disorder, recurrent episode, in full remission F33.42 Active 677071379 Problem Primary insomnia F51.01 Active 397 2004 Problem ADHD, predominantly inattentive type F90.0 Active [id number] ALLERGIES No Information ENCOUNTERS Encounter Location Date Diagnosis [facility] [address] [id number] [address] [place] [id number] Feb, ADHD, predominantly inattent randall type F90.0 and Primary insomnia F51.01 [facility] [address] [id number] 08 Jan, 2018 ADHD, predominantly inattent randall type F90.0 and Primary insomnia F51.01 [facility] [address] [id number] [address] [place] [phone] December, Seasonal allergies J30.2 and Post-nasal drip R09.82 [facility] [address] [id number] [address] [place] [phone] December, ADHD, predominantly inattent randall type F90.0 and Primary insomnia F51.01 [facility] [address] [id number] [address] [place] [phone] Nov, ADHD, predominantly inattent randall type F90.0 [facility] [address] [id number] [address] [place] [phone] Oct, ADHD, predominantly inattent randall type F90.0 [facility] [address] [id number] [address] [place] [phone] Oct, ADHD, predominantly inattent randall type F90.0 ; Primary insomnia F51.01 and Screening, lipid Z13.220 [facility] [address] [id number] [address] [place] [id number] Sep, ADHD, predominantly inattent randall type F90.0 [facility] [address] [id number] [address] [place] [phone] Aug, ADHD, predominantly inattent randall type F90.0 and Primary insomnia F51.01 [facility] [address] [id number] [address] [place] [phone] Jul, ADHD, predominantly inattent randall type F90.0 [facility] [address] [id number] [address] [place] [phone] Jul, Primary insomnia F51.01 and ADHD, predominantly inattentive type F90.0 [facility] [address] [id number] [address] [place] [phone] Jun, ADHD, predominantly inattent randall type F90.0 [facility] [address] [id number] [address] [place] [phone] May, ADHD, predominantly inattent randall type F90.0 [facility] [address] [id number] [address] [place] [id number] Apr, ADHD, predominantly inattent randall type F90.0 [facility] [address] [id number] [address] [place] [id number] Mar, ADHD, predominantly inattent randall type F90.0 ; Primary insomnia F51.01 ; Major depressive disorder, recurrent episode, in full remission F33.42 and Acne comedone L70.0 [facility] [address] [id number] [address] [place] [id number] Mar, Major depressive disorder, r ecurrent episode, in full remission F33.42 and ADHD, predominantly inattentive type F90.0 [place] [address] [address] [facility] [id number] [address] [place] [phone] Feb, ADHD, predominantly inattent randall type F90.0 [place] [address] [address] [facility] [id number] [address] [place] [id number] Feb, Primary insomnia F51.01 [facility] [address] [facility] [id number] [address] [place] [id number] Jan, ADHD, predominantly inattent randall type F90.0 and Primary insomnia F51.01 [place] [address] [address] [facility] [id number] [address] [place] [id number] December, ADHD, predominantly inattent randall type F90.0 and Primary insomnia F51.01 [place] [address] [id number] [address] [place] [id number] Oct, ADHD, predominantly inattent randall type F90.0 and Primary insomnia F51.01 [facility] [address] [facility] [id number] [address] [place] [address] Sep, ADHD, predominantly inattent randall type F90.0 and Primary insomnia F51.01 [place] [address] [address] [facility] [id number] [address] [place] [id number] Aug, ADHD, predominantly inattent randall type F90.0 and Primary insomnia F51.01 [facility] [address] [facility] [id number] [address] [place] [id number] Jul, Major depressive disorder, r ecurrent episode, in full remission F33.42 ; ADHD, predominantly inattentive type F90.0 ; Primary insomnia F51.01 ; Acute non-recurrent maxillary sinusitis J01.00 and Screening, lipid Z13.220 [facility] [address] [facility] [id number] [address] [place] [address] Jun, Acute non-recurrent maxillar y sinusitis J01.00 [facility] [address] [id number] [address] [place] [phone] Jun, ADHD, predominantly inattent randall type F90.0 [facility] [address] [id number] [address] [place] [address] May, [facility] [address] [id number] [address] [place] [address] Apr, [facility] [address] [id number] [address] [place] [id number] Feb, Rash R21 and Scabies B86 [facility] [address] [id number] [address] [place] [phone] Feb, ADHD, predominantly inattent randall type F90.0 and Major depressive disorder, recurrent episode, in full remission F33.42 [facility] [address] [id number] [address] [place] [phone] Feb, [facility] [address] [id number] [address] [place] [id number] Oct, [facility] [address] [id number] [address] [place] [id number] Sep, [facility] [address] [id number] [address] [place] [id number] Sep, [facility] [address] [id number] [address] [place] [phone] Aug, [facility] [address] [id number] [address] [place] [phone] Jul, [facility] [address] [id number] [address] [place] [phone] Jun, [facility] [address] [id number] [address] [place] [phone] May, [facility] [address] [id number] [address] [place] [id number] May, ADHD, predominantly inattent randall type F90.0 and Major depressive disorder, recurrent episode, in full remission F33.42 [facility] [address] [id number] [address] [place] [id number] Feb, Major depressive disorder, r ecurrent episode, moderate 296.32 [facility] [address] [id number] [address] [place] [phone] Feb, [facility] [address] [id number] [address] [place] [phone] Jan, [facility] [address] [id number] [address] [place] [phone] Jan, [facility] [address] [id number] [address] [place] [id number] December, [facility] [address] [id number] [address] [place] [id number] Nov, [facility] [address] [id number] [address] [place] [phone] Nov, [facility] [address] [id number] [address] [place] [phone] Oct, [facility] [address] [id number] [address] [place] [id number] Oct, [facility] [address] [id number] [address] [place] [phone] Sep, [facility] [address] [id number] [address] [place] [phone] Sep, [facility] [address] [id number] [address] [place] [phone] Sep, [facility] [address] [id number] [address] [place] [phone] Sep, [facility] [address] [id number] [address] [place] [phone] Aug, [facility] [address] [id number] [address] [place] [address], [place] [address] Aug, [facility] [address] [id number] [address] [place] [address], [place] [address] Aug, [facility] [address] [id number] [address] [place] [address], [place] [id number] Aug, [facility] [address] [id number] [address] [place] [address], [place] [id number] Aug, [facility] [address] [id number] [address] [place] [address], [place] [id number] Aug, [facility] [address] [id number] [address] [place] [address], [place] [address] Jul, [facility] [address] [id number] [address] [place] [address], [place] [address] Jul, [facility] [address] [id number] [address] [place] [address], [place] [address] Jun, [facility] [address] [id number] [address] [place] [address], [place] [address] Jun, [facility] [address] [id number] [address] [place] [address], [place] [id number] May, [facility] [address] [id number] [address] [place] [address], [place] [address] May, [facility] [address] [id number] [address] [place] [address], [place] [address] Apr, [facility] [address] [id number] [address] [place] [address], [place] [id number] Apr, [facility] [address] [id number] [address] [place] [address], [place] [address] Apr, [facility] [address] [id number] [address] [place] [address], [place] [id number] Mar, [facility] [address] [id number] [address] [place] [address], [place] [address] Mar, [facility] [address] [id number] [facility] [place] [phone] Mar, [facility] [address] [id number] [address] [place] [address], [place] [address] Mar, [facility] [address] [id number] [address] [place] [address], [place] [id number] Feb, [facility] [address] [id number] [address] [place] [address], [place] [address] Feb, [facility] [address] [id number] [address] [place] [address], [place] [address] Feb, [facility] [address] [id number] [address] [place] [address], [place] [address] Feb, [facility] [address] [id number] [address] [place] [address], [place] [address] Feb, [facility] [address] [id number] [address] [place] [address], [place] [address] Feb, [facility] [address] [id number] [address] [place] [address], [place] [id number] Jan, [facility] [address] [id number] [address] [place] [address], [place] [id number] Jan, [facility] [address] [id number] [address] [place] [address], [place] [address] Jan, [facility] [address] [id number] [address] [place] [address], [place] [address] Jan, [facility] [address] [id number] [address] [place] [address], [place] [address] December, [facility] [address] [id number] [address] [place] [address], [place] [id number] December, [facility] [address] [id number] [address] [place] [address], [place] [address] December, [facility] [address] [id number] [address] [place] [address], [place] [address] December, [facility] [address] [id number] [facility] [place] [id number] December, [facility] [address] [id number] [address] [place] [address], [place] [id number] December, [facility] [address] [id number] [address] [place] [address], [place] [address] December, [facility] [address] [id number] [address] [place] [address], [place] [address] December, [facility] [address] [id number] [address] [place] [address], [place] [id number] December, [facility] [address] [id number] [address] [place] [address], [place] [id number] December, [facility] [address] [id number] [address] [place] [address], [place] [address] Nov, [facility] [address] [id number] [address] [place] [address], [place] [address] Nov, [facility] [address] [id number] [address] [place] [address], [place] [address] Oct, [facility] [address] [id number] [address] [place] [address], [place] [address] Oct, [facility] [address] [id number] [address] [place] [address], [place] [address] Oct, [facility] [address] [id number] [address] [place] [address], [place] [address] Oct, [facility] [address] [id number] [address] [place] [address], [place] [address] Oct, [facility] [address] [id number] [address] [place] [address], [place] [address] Oct, [facility] [address] [id number] [address] [place] [address], [place] [id number] Aug, [facility] [address] [id number] [address] [place] [address], [place] [address] Aug, [facility] [address] [id number] [address] [place] [address], [place] [address] Aug, [facility] [address] [id number] [address] [place] [address], [place] [id number] Aug, [facility] [address] [id number] [address] [place] [address], [place] [address] Aug, [facility] [address] [id number] [address] [place] [address], [place] [address] Aug, [facility] [address] [id number] [address] [place] [address], [place] [address] Aug, [facility] [address] [id number] [address] [place] [address], [place] [address] Aug, [facility] [address] [id number] [address] [place] [address], [place] [address] Jul, [facility] [address] [id number] [address] [place] [address], [place] [address] Jul, [facility] [address] [id number] [address] [place] [address], [place] [address] Jun, [facility] [address] [id number] [address] [place] [address], [place] [address] Jun, [facility] [address] [id number] [address] [place] [address], [place] [id number] Jun, [facility] [address] [id number] [address] [place] [address], [place] [address] Jun, [facility] [address] [id number] [address] [place] [address], [place] [address] Jun, [facility] [address] [id number] [address] [place] [address], [place] [id number] 07 Jun, 2013 [facility] [address] [id number] [address] [place] [address], [place] [address] May, [facility] [address] [id number] [address] [place] [address], [place] [address] May, [facility] [address] [id number] [address] [place] [address], [place] [id number] Apr, [facility] [address] [id number] [address] [place] [address], [place] [address] Apr, [facility] [address] [id number] [address] [place] [address], [place] [address] Mar, [facility] [address] [id number] [address] [place] [address], [place] [address] Mar, [facility] [address] [id number] [address] [place] [address], [place] [address] Mar, [facility] [address] [id number] [address] [place] [address], [place] [address] Feb, [facility] [address] [id number] [address] [place] [address], [place] [id number] Jan, [facility] [address] [id number] [address] [place] [address], [place] [address] December, [facility] [address] [id number] [address] [place] [address], [place] [id number] December, [facility] [address] [id number] [address] [place] [address], [place] [address] December, [facility] [address] [id number] [address] [place] [address], [place] [address] December, [facility] [address] [id number] [address] [place] [address], [place] [address] December, [facility] [address] [id number] [address] [place] [address], [place] [address] December, [facility] [address] [id number] [address] [place] [address], [place] [address] Nov, [facility] [address] [id number] [address] [place] [address], [place] [id number] 17 Nov, 2012 [facility] [address] [id number] [address] [place] [address], [place] [id number] 08 Nov, 2012 [facility] [address] [id number] [address] [place] [address], [place] [id number] 05 Oct, 2012 [facility] [address] [id number] [address] [place] [address], [place] [id number] 14 Jun, 2012 [facility] [address] [id number] [address] [place] [address], [place] [id number] 14 Jun, 2012 [facility] [address] [id number] [address] [place] [address], [place] [id number] Jun, [facility] [address] [id number] [address] [place] [address], [place] [id number] Jun, [facility] [address] [id number] [address] [place] [address], [place] [id number] 18 Apr, 2012 [facility] [address] [id number] [address] [place] [address], [place] [id number] Mar, [facility] [address] [id number] [address] [place] [address], [place] [id number] Mar, [facility] [address] [id number] [address] [place] [address], [place] [id number] Jan, [facility] [address] [id number] [address] [place] [address], [place] [id number] December, [facility] [address] [id number] [address] [place] [address], [place] [id number] 16 Nov, 2011 [facility] [address] [id number] [address] [place] [address], [place] [id number] Nov, [facility] [address] [id number] [address] [place] [address], [place] [id number] 05 Nov, 2011 [facility] [address] [id number] [address] [place] [address], [place] [id number] Nov, [facility] [address] [id number] [address] [place] [id number] Aug, [facility] [address] [id number] [address] [place] [id number] Aug, [facility] [address] [id number] [address] [place] [phone] Jul, [facility] [address] [id number] [address] [place] [id number] Jun, [facility] [address] [id number] [address] [place] [id number] Jun, [facility] [address] [id number] [address] [place] [phone] Apr, [facility] [address] [facility] [id number] [address] [place] [phone] Feb, IMMUNIZATIONS No Known Immunizations SOCIAL HISTORY Never Assessed REASON FOR VISIT Controlled Med Refill 11/18/17 PLAN OF CARE VITAL SIGNS MEDICATIONS Medication Instructions Dosage Frequency Start Date End Date Duration S dante Adderall XR 20 MG Orally Once a day 2 capsules in the morning 24h Oct, 28 days Active RESULTS No Results PROCEDURES No Known procedures INSTRUCTIONS MEDICATIONS ADMINISTERED No Known Medications MEDICAL (GENERAL) HISTORY Type Description Date Medical History Hypertension Medical History ADHD Medical History depression Medical History anxiety Surgical History section Surgical History collar bone repair
--- OUTSIDE RECORDS SUMMARY | 2020-02-11 01:36 | XMS REPORT ---
Author Author Elaine GALARZA [facility] [address] Address [address] [place] [address] Care Team Providers Care Dynamometer Tuner Name Role Phone MARI GALARZA Unavailable PROBLEMS Type Condition ICD9-CM Code [id number] Code Onset Dates Condition S tatus SNOMED Code Problem Essential hypertension I10 Active 51764421 Problem Primary insomnia F51.01 Active 397 2004 Problem ADHD, predominantly inattentive type F90.0 Active 26454623 Problem Major depressive disorder, recurrent episode, in full remission F33.42 Active [id number] ALLERGIES No Information SOCIAL HISTORY Never Assessed PLAN OF CARE VITAL SIGNS MEDICATIONS Medication Instructions Dosage Frequency Start Date End Date Duration S tatus Adderall XR 20 mg Orally Once a day 2 capsules in the morning 24h Oct, 28 days Active Ambien 10 mg Orally Once a day 1 tablet at bedtime as needed 24h Jul, 28 days Active RESULTS No Results PROCEDURES No Known procedures IMMUNIZATIONS No Known Immunizations MEDICAL (GENERAL) HISTORY Type Description Date Medical History Hypertension Medical History ADHD Medical History depression Medical History anxiety Surgical History section Surgical History collar bone repair
--- OUTSIDE RECORDS SUMMARY | 2020-02-11 01:36 | XMS REPORT ---
Author Author Elaine GALARZA Organization [facility] Address [address] [place] [address] Care Team Providers Care Cooker Process Cheese Name Role Phone MARI GALARZA Unavailable PROBLEMS Type Condition ICD9-CM Code [id number] Code Onset Dates Condition S tatus SNOMED Code Problem Seasonal allergies J30.2 Active 4 45575160 Problem Essential hypertension I10 Active 41324944 Problem Major depressive disorder, recurrent episode, in full remission F33.42 Active 640920603 Problem Primary insomnia F51.01 Active 397 2004 Problem ADHD, predominantly inattentive type F90.0 Active 51088351 ALLERGIES No Information ENCOUNTERS Encounter Location Date Diagnosis [facility] [address] [id number] [address] [place] [address] Apr, [facility] [address] [id number] [address] [place] [address] Mar, [facility] [address] [address] Mar, ADHD, predominantly inattent randall type F90.0 and Primary insomnia F51.01 [facility] [address] [id number] [address] [place] [address] Feb, ADHD, predominantly inattent randall type F90.0 and Primary insomnia F51.01 [facility] [address] [id number] [address] [place] [address] Jan, ADHD, predominantly inattent randall type F90.0 and Primary insomnia F51.01 [facility] [address] [id number] [address] [place] [address] December, Seasonal allergies J30.2 and Post-nasal drip R09.82 [facility] [address] [id number] [address] [place] [address] December, ADHD, predominantly inattent randall type F90.0 and Primary insomnia F51.01 [facility] [address] [id number] [address] [place] [address] Nov, ADHD, predominantly inattent randall type F90.0 [facility] [address] [id number] [address] [place] [address] Oct, ADHD, predominantly inattent randall type F90.0 [facility] [address] [id number] [address] [place] [address] Oct, ADHD, predominantly inattent randall type F90.0 ; Primary insomnia F51.01 and Screening, lipid Z13.220 [facility] [address] [id number] [address] [place] [address] Sep, ADHD, predominantly inattent randall type F90.0 [facility] [address] [id number] [address] [place] [address] Aug, ADHD, predominantly inattent randall type F90.0 and Primary insomnia F51.01 [facility] [address] [id number] [address] [place] [address] Jul, ADHD, predominantly inattent randall type F90.0 [facility] [address] [id number] [address] [place] [address] Jul, Primary insomnia F51.01 and ADHD, predominantly inattentive type F90.0 [facility] [address] [id number] [address] [place] [address] Jun, ADHD, predominantly inattent randall type F90.0 [facility] [address] [facility] [id number] [address] [place] [address] May, ADHD, predominantly inattent randall type F90.0 [facility] [address] [facility] [id number] [address] [place] [address] Apr, ADHD, predominantly inattent randall type F90.0 [facility] [address] [id number] [address] [place] [address] Mar, ADHD, predominantly inattent randall type F90.0 ; Primary insomnia F51.01 ; Major depressive disorder, recurrent episode, in full remission F33.42 and Acne comedone L70.0 [facility] [address] [id number] [address] [place] [address] Mar, Major depressive disorder, r ecurrent episode, in full remission F33.42 and ADHD, predominantly inattentive type F90.0 [facility] [address] [id number] [address] [place] [address] Feb, ADHD, predominantly inattent randall type F90.0 [facility] [address] [id number] [address] [place] [address] Feb, Primary insomnia F51.01 [facility] [address] [id number] [address] [place] [address] Jan, ADHD, predominantly inattent randall type F90.0 and Primary insomnia F51.01 [facility] [address] [id number] [address] [place] [address] December, ADHD, predominantly inattent randall type F90.0 and Primary insomnia F51.01 [facility] [address] [id number] [address] [place] [address] Oct, ADHD, predominantly inattent randall type F90.0 and Primary insomnia F51.01 [facility] [address] [id number] [address] [place] [address] Sep, ADHD, predominantly inattent randall type F90.0 and Primary insomnia F51.01 [facility] [address] [id number] [address] [place] [address] Aug, ADHD, predominantly inattent randall type F90.0 and Primary insomnia F51.01 [facility] [address] [id number] [address] [place] [address] Jul, Major depressive disorder, r ecurrent episode, in full remission F33.42 ; ADHD, predominantly inattentive type F90.0 ; Primary insomnia F51.01 ; Acute non-recurrent maxillary sinusitis J01.00 and Screening, lipid Z13.220 [facility] [address] [id number] [address] [place] [address] Jun, Acute non-recurrent maxillar y sinusitis J01.00 [facility] [address] [id number] [address] [place] [address] Jun, ADHD, predominantly inattent randall type F90.0 [facility] [address] [id number] [address] [place] [address] May, [facility] [address] [id number] [address] [place] [address] Apr, [facility] [address] [id number] [address] [place] [address] Feb, Rash R21 and Scabies B86 [facility] [address] [id number] [address] [place] [address] Feb, ADHD, predominantly inattent randall type F90.0 and Major depressive disorder, recurrent episode, in full remission F33.42 [facility] [address] [id number] [address] [place] [address] Feb, [facility] [address] [id number] [address] [place] [address] Oct, [facility] [address] [id number] [address] [place] [address] Sep, [facility] [address] [id number] [address] [place] [address] Sep, [facility] [address] [id number] [address] [place] [address] Aug, [facility] [address] [id number] [address] [place] [address] Jul, [facility] [address] [id number] [address] [place] [address] Jun, [facility] [address] [id number] [address] [place] [address] May, [facility] [address] [id number] [address] [place] [address] May, ADHD, predominantly inattent randall type F90.0 and Major depressive disorder, recurrent episode, in full remission F33.42 [facility] [address] [id number] [address] [place] [address] Feb, Major depressive disorder, r ecurrent episode, moderate 296.32 [facility] [address] [id number] [address] [place] [address] Feb, [facility] [address] [id number] [address] [place] [address] Jan, [facility] [address] [id number] [address] [place] [address] Jan, [facility] [address] [id number] [address] [place] [address] December, [facility] [address] [facility] [id number] [address] [place] [address] Nov, [facility] [address] [id number] [address] [place] [address] Nov, [facility] [address] [id number] [address] [place] [address] Oct, [facility] [address] [id number] [address] [place] [address] Oct, [facility] [address] [id number] [address] [place] [address] Sep, [facility] [address] [id number] [address] [place] [address] Sep, [facility] [address] [id number] [address] [place] [address], [place] [address] Sep, [facility] [address] [id number] [address] [place] [address], [place] [address] Sep, [facility] [address] [id number] [address] [place] [address], [place] [address] Aug, [facility] [address] [id number] [address] [place] [address] Aug, [facility] [address] [id number] [address] [place] [address], [place] [address] Aug, [facility] [address] [id number] [address] [place] [address], [place] [address] Aug, [facility] [address] [id number] [address] [place] [address], [place] [address] Aug, [facility] [address] [id number] [address] [place] [address], [place] [address] Aug, [facility] [address] [id number] [address] [place] [address], [place] [address] Jul, [facility] [address] [id number] [address] [place] [address], [place] [address] Jul, [facility] [address] [id number] [address] [place] [address], [place] [address] Jun, [facility] [address] [id number] [address] [place] [address] Jun, [facility] [address] [id number] [address] [place] [address], [place] [address] May, [facility] [address] [id number] [address] [place] [address], [place] [address] May, [facility] [address] [id number] [address] [place] [address], [place] [address] Apr, [facility] [address] [id number] [address] [place] [address], [place] [address] Apr, [facility] [address] [id number] [address] [place] [address], [place] [address] Apr, [facility] [address] [id number] [address] [place] [address], [place] [address] Mar, [facility] [address] [id number] [address] [place] [address], [place] [address] Mar, [facility] [address] [id number] [address] [place] [address], [place] [address] Mar, [facility] [address] [id number] [address] [place] [address], [place] [address] Mar, [facility] [address] [id number] [address] [place] [address], [place] [address] Feb, [facility] [address] [id number] [address] [place] [address], [place] [address] Feb, [facility] [address] [id number] [address] [place] [address], [place] [address] Feb, [facility] [address] [id number] [address] [place] [address], [place] [address] Feb, [facility] [address] [id number] [address] [place] [address], [place] [address] Feb, [facility] [address] [id number] [address] [place] [address], [place] [address] Feb, [facility] [address] [id number] [address] [place] [address], [place] [address] Jan, [facility] [address] [id number] [address] [place] [address], [place] [address] Jan, [facility] [address] [id number] [address] [place] [address], [place] [address] Jan, [facility] [address] [id number] [address] [place] [address], [place] [address] Jan, [facility] [address] [id number] [facility] [place] [address] December, [facility] [address] [id number] [address] [place] [address], [place] [address] December, [facility] [address] [id number] [address] [place] [address], [place] [address] December, [facility] [address] [id number] [address] [place] [address], [place] [address] December, [facility] [address] [id number] [address] [place] [address], [place] [address] December, [facility] [address] [id number] [address] [place] [address], [place] [address] December, [facility] [address] [id number] [address] [place] [address], [place] [address] December, [facility] [address] [id number] [address] [place] [address], [place] [address] December, [facility] [address] [id number] [address] [place] [address], [place] [address] December, [facility] [address] [id number] [address] [place] [address], [place] [address] December, [facility] [address] [id number] [address] [place] [address], [place] [address] Nov, [facility] [address] [id number] [address] [place] [address], [place] [address] Nov, [facility] [address] [id number] [address] [place] [address], [place] [address] Oct, [facility] [address] [id number] [address] [place] [address], [place] [address] Oct, [facility] [address] [id number] [address] [place] [address], [place] [address] Oct, [facility] [address] [id number] [address] [place] [address], [place] [address] Oct, [facility] [address] [id number] [address] [place] [address], [place] [address] Oct, [facility] [address] [id number] [address] [place] [address], [place] [address] Oct, [facility] [address] [id number] [address] [place] [address], [place] [address] Aug, [facility] [address] [id number] [address] [place] [address], [place] [address] Aug, [facility] [address] [id number] [address] [place] [address], [place] [address] Aug, [facility] [address] [id number] [address] [place] [address], [place] [address] Aug, [facility] [address] [id number] [address] [place] [address], [place] [address] Aug, [facility] [address] [id number] [address] [place] [address], [place] [address] Aug, [facility] [address] [id number] [address] [place] [address], [place] [address] Aug, [facility] [address] [id number] [address] [place] [address], [place] [address] Aug, [facility] [address] [id number] [address] [place] [address], [place] [address] Jul, [facility] [address] [id number] [address] [place] [address], [place] [address] Jul, [facility] [address] [id number] [address] [place] [address], [place] [address] Jun, [facility] [address] [id number] [address] [place] [address], [place] [address] Jun, [facility] [address] [id number] [address] [place] [address], [place] [address] Jun, [facility] [address] [id number] [address] [place] [address], [place] [address] Jun, [facility] [address] [id number] [address] [place] [address], [place] [address] Jun, [facility] [address] [id number] [address] [place] [address], [place] [address] Jun, [facility] [address] [id number] [address] [place] [address], [place] [address] May, [facility] [address] [id number] [address] [place] [address], [place] [address] May, [facility] [address] [id number] [address] [place] [address], [place] [address] Apr, [facility] [address] [id number] [address] [place] [address], [place] [address] Apr, [facility] [address] [id number] [address] [place] [address], [place] [address] Mar, [facility] [address] [id number] [address] [place] [address], [place] [address] Mar, [facility] [address] [id number] [address] [place] [address], [place] [address] Mar, [facility] [address] [id number] [address] [place] [address], [place] [address] Feb, [facility] [address] [id number] [address] [place] [address], [place] [address] Jan, [facility] [address] [id number] [address] [place] [address], [place] [address] December, [facility] [address] [id number] [address] [place] [address], [place] [address] December, [facility] [address] [id number] [address] [place] [address], [place] [address] December, [facility] [address] [id number] [address] [place] [address] [address] December, [facility] [address] [id number] [address] [place] [address], [place] [address] December, [facility] [address] [id number] [address] [place] [address], [place] [address] December, [facility] [address] [id number] [address] [place] [address], [place] [address] Nov, [facility] [address] [id number] [address] [place] [address], [place] [address] Nov, [facility] [address] [id number] [address] [place] [address], [place] [address] Nov, [facility] [address] [id number] [address] [place] [address], [place] [address] Oct, [facility] [address] [id number] [address] [place] [address], [place] [address] Jun, [facility] [address] [id number] [address] [place] [address], [place] [address] Jun, [facility] [address] [id number] [address] [place] [address], [place] [address] Jun, [facility] [address] [id number] [address] [place] [address], [place] [address] Jun, [facility] [address] [id number] [address] [place] [address], [place] [address] Apr, [facility] [address] [id number] [address] [place] [address], [place] [address] Mar, [facility] [address] [id number] [address] [place] [address], [place] [address] Mar, [facility] [address] [id number] [address] [place] [address], [place] [address] Jan, [facility] [address] [id number] [address] [place] [address], [place] [address] December, [facility] [address] [id number] [address] [place] [address] Nov, [facility] [address] [id number] [address] [place] [address] Nov, [facility] [address] [id number] [address] [place] [address] Nov, [facility] [address] [id number] [address] [place] [address] Nov, [facility] [address] [id number] [address] [place] [address] Aug, [facility] [address] [id number] [address] [place] [address] Aug, [facility] [address] [id number] [address] [place] [id number] Jul, [facility] [address] [id number] [address] [place] [id number] Jun, [facility] [address] [id number] [address] [place] [id number] Jun, [facility] [address] [id number] [address] [place] [id number] Apr, [facility] [address] [id number] [address] [place] [id number] Feb, IMMUNIZATIONS No Known Immunizations SOCIAL HISTORY Never Assessed REASON FOR VISIT Controlled Med Refill 01/13/18 PLAN OF CARE VITAL SIGNS MEDICATIONS Medication Instructions Dosage Frequency Start Date End Date Duration S tatus Ambien 10 MG Orally Once a day 1 tablet at bedtime as needed 24h Jul, 28 days Active Adderall XR 20 MG Orally Once a day 2 capsules in the morning 24h December, 28 days Active RESULTS No Results PROCEDURES No Known procedures INSTRUCTIONS MEDICATIONS ADMINISTERED No Known Medications MEDICAL (GENERAL) HISTORY Type Description Date Medical History Hypertension Medical History ADHD Medical History depression Medical History anxiety Surgical History section Surgical History collar bone repair
--- OUTSIDE RECORDS SUMMARY | 2020-02-11 01:36 | XMS REPORT ---
Author Author Elaine GALARZA Organization [facility] Address [address] [place] [address] Care Team Providers Care Fan Balancer Name Role Phone MARI GALARZA Unavailable PROBLEMS Type Condition ICD9-CM Code DVP99-HQ Code Onset Dates Condition S tatus SNOMED Code Problem Seasonal allergies J30.2 Active 4 87822882 Problem Essential hypertension I10 Active 87742560 Problem Major depressive disorder, recurrent episode, in full remission F33.42 Active 998567747 Problem Primary insomnia F51.01 Active 397 2004 Problem ADHD, predominantly inattentive type F90.0 Active 69562920 ALLERGIES No Known Allergies ENCOUNTERS Encounter Location Date Diagnosis [facility] [address] [address] Feb, ADHD, predominantly inattent randall type F90.0 and Primary insomnia F51.01 [facility] [address] [address] 08 Jan, 2018 ADHD, predominantly inattent randall type F90.0 and Primary insomnia F51.01 [facility] [address] [id number] [address] [place] [address] December, Seasonal allergies J30.2 and Post-nasal drip R09.82 [facility] [address] [id number] [address] [place] [address] December, ADHD, predominantly inattent randall type F90.0 and Primary insomnia F51.01 [facility] [address] [id number] [address] [place] [address] Nov, ADHD, predominantly inattent randall type F90.0 [facility] [address] [id number] [address] [place] [address] Oct, ADHD, predominantly inattent randall type F90.0 [facility] [address] [id number] [address] [place] [address] Oct, ADHD, predominantly inattent randall type F90.0 ; Primary insomnia F51.01 and Screening, lipid Z13.220 [facility] [address] [id number] [address] [place] [address] Sep, ADHD, predominantly inattent randall type F90.0 [facility] [address] [id number] [address] [place] [address] Aug, ADHD, predominantly inattent randall type F90.0 and Primary insomnia F51.01 [facility] [address] [id number] [address] [place] [address] Jul, ADHD, predominantly inattent randall type F90.0 [facility] [address] [id number] [address] [place] [address] Jul, Primary insomnia F51.01 and ADHD, predominantly inattentive type F90.0 [facility] [address] [id number] [address] [place] [address] Jun, ADHD, predominantly inattent randall type F90.0 [facility] [address] [id number] [address] [place] [address] May, ADHD, predominantly inattent randall type F90.0 [facility] [address] [id number] [address] [place] [address] Apr, ADHD, predominantly inattent randall type F90.0 [facility] [address] [facility] [id number] [address] [place] [address] Mar, ADHD, predominantly inattent randall type F90.0 ; Primary insomnia F51.01 ; Major depressive disorder, recurrent episode, in full remission F33.42 and Acne comedone L70.0 [facility] [address] [facility] [id number] [address] [place] [address] Mar, Major depressive disorder, r ecurrent episode, in full remission F33.42 and ADHD, predominantly inattentive type F90.0 [place] [address] [address] [facility] [id number] [address] [place] [address] Feb, ADHD, predominantly inattent randall type F90.0 [place] [address] [address] [facility] [id number] [address] [place] [address] Feb, Primary insomnia F51.01 [facility] [address] [facility] [id number] [address] [place] [address] Jan, ADHD, predominantly inattent randall type F90.0 and Primary insomnia F51.01 [place] [address] [facility] [id number] [address] [place] [address] December, ADHD, predominantly inattent randall type F90.0 and Primary insomnia F51.01 [place] [address] [place] [place] [id number] [address] [place] [address] Oct, ADHD, predominantly inattent randall type F90.0 and Primary insomnia F51.01 [place] [address] [facility] [id number] [address] [place] [address] Sep, ADHD, predominantly inattent randall type F90.0 and Primary insomnia F51.01 [place] [address] [facility] [id number] [address] [place] [address] Aug, ADHD, predominantly inattent randall type F90.0 and Primary insomnia F51.01 [facility] [address] [facility] [id number] [address] [place] [address] Jul, Major depressive disorder, r ecurrent episode, in full remission F33.42 ; ADHD, predominantly inattentive type F90.0 ; Primary insomnia F51.01 ; Acute non-recurrent maxillary sinusitis J01.00 and Screening, lipid Z13.220 [facility] [address] [facility] [id number] [address] [place] [address] Jun, Acute non-recurrent maxillar y sinusitis J01.00 [facility] [address] [id number] [address] [place] [address] Jun, ADHD, predominantly inattent randall type F90.0 [facility] [address] [id number] [address] [place] [address] May, [facility] [address] [id number] [address] [place] [address] Apr, [facility] [address] [id number] [address] [place] [address] Feb, Rash R21 and Scabies B86 [facility] [address] [id number] [address] [place] [address] Feb, ADHD, predominantly inattent randall type F90.0 and Major depressive disorder, recurrent episode, in full remission F33.42 [facility] [address] [id number] [address] [place] [address] Feb, [facility] [address] [id number] [address] [place] [address] Oct, [facility] [address] [id number] [address] [place] [address] Sep, [facility] [address] [id number] [address] [place] [address] Sep, [facility] [address] [id number] [address] [place] [address] Aug, [facility] [address] [id number] [address] [place] [address] Jul, [facility] [address] [id number] [address] [place] [address] Jun, [facility] [address] [id number] [address] [place] [address] May, [facility] [address] [id number] [address] [place] [address] May, ADHD, predominantly inattent randall type F90.0 and Major depressive disorder, recurrent episode, in full remission F33.42 [facility] [address] [id number] [address] [place] [address] Feb, Major depressive disorder, r ecurrent episode, moderate 296.32 [facility] [address] [id number] [address] [place] [address] Feb, [facility] [address] [id number] [address] [place] [address] Jan, [facility] [address] [id number] [address] [place] [address] Jan, [facility] [address] [id number] [address] [place] [address] December, [facility] [address] [id number] [address] [place] [address] Nov, [facility] [address] [id number] [address] [place] [address] Nov, [facility] [address] [id number] [address] [place] [address] Oct, [facility] [address] [id number] [address] [place] [address] Oct, [facility] [address] [id number] [address] [place] [address] Sep, [facility] [address] [id number] [address] [place] [address] Sep, [facility] [address] [id number] [address] [place] [address] Sep, [facility] [address] [id number] [address] [place] [address] Sep, [facility] [address] [id number] [address] [place] [address] Aug, [facility] [address] [id number] [address] [place] [address], [place] [address] Aug, [facility] [address] [id number] [address] [place] [address], [place] [address] Aug, [facility] [address] [id number] [address] [place] [address], [place] [address] Aug, [facility] [address] [id number] [address] [place] [address], [place] [address] Aug, [facility] [address] [id number] [address] [place] [address], [place] [address] Aug, [facility] [address] [id number] [address] [place] [address], [place] [address] Jul, [facility] [address] [id number] [address] [place] [address], [place] [address] Jul, [facility] [address] [id number] [address] [place] [address], [place] [address] Jun, [facility] [address] [id number] [address] [place] [address], [place] [address] Jun, [facility] [address] [id number] [address] [place] [address], [place] [address] May, [facility] [address] [id number] [address] [place] [address], [place] [address] May, [facility] [address] [id number] [address] [place] [address], [place] [address] Apr, [facility] [address] [id number] [address] [place] [address], [place] [address] Apr, [facility] [address] [id number] [address] [place] [address], [place] [address] Apr, [facility] [address] [id number] [address] [place] [address], [place] [address] Mar, [facility] [address] [id number] [address] [place] [address], [place] [address] Mar, [facility] [address] [id number] [facility] [place] [address] Mar, [facility] [address] [id number] [address] [place] [address], [place] [address] Mar, [facility] [address] [id number] [address] [place] [address], [place] [address] Feb, [facility] [address] [id number] [address] [place] [address], [place] [address] Feb, [facility] [address] [id number] [address] [place] [address], [place] [address] Feb, [facility] [address] [id number] [address] [place] [address], [place] [address] Feb, [facility] [address] [id number] [address] [place] [address], [place] [address] Feb, [facility] [address] [id number] [address] [place] [address], [place] [address] Feb, [facility] [address] [id number] [address] [place] [address], [place] [address] Jan, [facility] [address] [id number] [address] [place] [address], [place] [address] Jan, [facility] [address] [id number] [address] [place] [address], [place] [address] Jan, [facility] [address] [id number] [address] [place] [address], [place] [address] Jan, [facility] [address] [id number] [address] [place] [address], [place] [address] December, [facility] [address] [id number] [address] [place] [address], [place] [address] December, [facility] [address] [id number] [address] [place] [address], [place] [address] December, [facility] [address] [id number] [address] [place] [address], [place] [address] December, [facility] [address] [id number] [facility] [place] [address] December, [facility] [address] [id number] [facility] [place] [address] December, [facility] [address] [id number] [address] [place] [address], [place] [address] December, [facility] [address] [id number] [address] [place] [address], [place] [address] December, [facility] [address] [id number] [address] [place] [address], [place] [address] December, [facility] [address] [id number] [address] [place] [address], [place] [address] December, [facility] [address] [id number] [address] [place] [address], [place] [address] Nov, [facility] [address] [id number] [address] [place] [address], [place] [address] Nov, [facility] [address] [id number] [address] [place] [address], [place] [address] Oct, [facility] [address] [id number] [address] [place] [address], [place] [address] Oct, [facility] [address] [id number] [address] [place] [address], [place] [address] Oct, [facility] [address] [id number] [address] [place] [address], [place] [address] Oct, [facility] [address] [id number] [address] [place] [address], [place] [address] Oct, [facility] [address] [id number] [address] [place] [address], [place] [address] Oct, [facility] [address] [id number] [address] [place] [address], [place] [address] Aug, [facility] [address] [id number] [address] [place] [address], [place] [address] Aug, [facility] [address] [id number] [address] [place] [address], [place] [address] Aug, [facility] [address] [id number] [address] [place] [address], [place] [address] Aug, [facility] [address] [id number] [address] [place] [address], [place] [address] Aug, [facility] [address] [id number] [address] [place] [address], [place] [address] Aug, [facility] [address] [id number] [address] [place] [address], [place] [address] Aug, [facility] [address] [id number] [address] [place] [address], [place] [address] Aug, [facility] [address] [id number] [address] [place] [address], [place] [address] Jul, [facility] [address] [id number] [address] [place] [address], [place] [address] Jul, [facility] [address] [id number] [address] [place] [address], [place] [address] Jun, [facility] [address] [id number] [address] [place] [address], [place] [address] Jun, [facility] [address] [id number] [address] [place] [address], [place] [address] Jun, [facility] [address] [id number] [address] [place] [address], [place] [address] Jun, [facility] [address] [id number] [address] [place] [address], [place] [address] Jun, [facility] [address] [id number] [address] [place] [address], [place] [address] Jun, [facility] [address] [id number] [address] [place] [address], [place] [address] May, [facility] [address] [id number] [address] [place] [address], [place] [address] May, [facility] [address] [id number] [address] [place] [address], [place] [address] Apr, [facility] [address] [id number] [address] [place] [address], [place] [address] Apr, [facility] [address] [id number] [address] [place] [address], [place] [address] Mar, [facility] [address] [id number] [address] [place] [address], [place] [address] Mar, [facility] [address] [id number] [address] [place] [address], [place] [address] Mar, [facility] [address] [id number] [address] [place] [address], [place] [address] Feb, [facility] [address] [id number] [address] [place] [address], [place] [address] Jan, [facility] [address] [id number] [address] [place] [address], [place] [address] December, [facility] [address] [id number] [address] [place] [address], [place] [address] December, [facility] [address] [id number] [address] [place] [address], [place] [address] December, [facility] [address] [id number] [address] [place] [address], [place] [address] December, [facility] [address] [id number] [address] [place] [address], [place] [address] December, [facility] [address] [id number] [address] [place] [address], [place] [address] December, [facility] [address] [id number] [address] [place] [address], [place] [address] Nov, [facility] [address] [id number] [address] [place] [address], [place] [address] 17 Nov, 2012 [facility] [address] [id number] [address] [place] [address], [place] [address] 08 Nov, 2012 [facility] [address] [id number] [address] [place] [address], [place] [address] 05 Oct, 2012 [facility] [address] [id number] [address] [place] [address], [place] [address] 14 Jun, 2012 [facility] [address] [id number] [address] [place] [address], [place] [address] 14 Jun, 2012 [facility] [address] [id number] [address] [place] [address], [place] [address] Jun, [facility] [address] [id number] [address] [place] [address], [place] [address] Jun, [facility] [address] [id number] [address] [place] [address], [place] [address] 18 Apr, 2012 [facility] [address] [id number] [address] [place] [address], [place] [address] Mar, [facility] [address] [id number] [address] [place] [address], [place] [address] Mar, [facility] [address] [id number] [address] [place] [address], [place] [address] Jan, [facility] [address] [id number] [address] [place] [address], [place] [address] December, [facility] [address] [id number] [address] [place] [address], [place] [address] 16 Nov, 2011 [facility] [address] [id number] [address] [place] [address], [place] [address] Nov, [facility] [address] [id number] [address] [place] [address], [place] [address] 05 Nov, 2011 [facility] [address] [id number] [address] [place] [address], [place] [address] Nov, [facility] [address] [id number] [address] [place] [phone] Aug, [facility] [address] [id number] [address] [place] [id number] Aug, [facility] [address] [id number] [address] [place] [phone] Jul, [facility] [address] [id number] [address] [place] [phone] Jun, [facility] [address] [id number] [address] [place] [phone] Jun, [facility] [address] [id number] [address] [place] [phone] Apr, [facility] [address] [id number] [address] [place] [phone] Feb, IMMUNIZATIONS No Known Immunizations SOCIAL HISTORY Never Assessed REASON FOR VISIT ADHD/Labs- Himanshu Montes De Oca RN PLAN OF CARE Activity Details Follow Up 6 Months Reason:ADHD and WWE VITAL SIGNS Height 64 in 2017-11-01 Weight 199 lbs 2017-11-01 Temperature 99.0 degrees Fahrenheit 2017-11-01 Heart Rate 84 bpm 2017-11-01 Respiratory Rate 18 2017-11-01 BMI 34.15 kg/m2 2017-11-01 Blood pressure systolic 130 mmHg 2017-11-01 Blood pressure diastolic 80 mmHg 2017-11-01 MEDICATIONS Medication Instructions Dosage Frequency Start Date End Date Duration S tatus Adderall XR 20 MG Orally Once a day 2 capsules in the morning 24h Sep, 28 days Active Ambien 10 MG Orally Once a day 1 tablet at bedtime as needed 24h Jul, 30 days Active Effexor XR 150 MG Orally Once a day 2 capsules 24h Aug, 30 days Active RESULTS No Results PROCEDURES Procedure Date Ordered Result Body Site LIPID PANEL November 01, 2017 COMPREHEN METABOLIC PANEL November 01, 2017 No Charge November 01, 2017 INSTRUCTIONS MEDICATIONS ADMINISTERED No Known Medications MEDICAL (GENERAL) HISTORY Type Description Date Medical History Hypertension Medical History ADHD Medical History depression Medical History anxiety Surgical History section Surgical History collar bone repair
--- OUTSIDE RECORDS SUMMARY | 2020-02-11 01:36 | XMS REPORT ---
Author Elaine Alvarenga Organization [employer] Address Unknown Phone Unavailable Care Team Providers Care [place] Instructor Name Role Phone ANA DEUTSCH CP Unavailable Allergies, Adverse Reactions, Alerts Substance Reaction Event Type N.K.D.A. Info Not Available Non Drug Allergy Problems Problem Type Condition Code Onset Dates Condition Statu s Problem Major depressive disorder, recurrent episode, moderate 296.32 Active Problem Calcaneal spur 726.73 Active Problem Attention deficit disorder of childhood with hyperacti vity 314.01 Active Problem Major depressive disorder, recurrent episode, in full remission F33.42 Active Problem Essential hypertension, benign 401.1 Active Problem ADHD, predominantly inattentive type F90.0 Active Problem Plantar fascial fibromatosis 728.71 Active Problem Lesion of plantar nerve 355.6 Acti ve Problem Insomnia, unspecified 780.52 Active Problem Anxiety state, unspecified 300.00 A ctive Problem Generalized anxiety disorder 300.02 Active Problem Unspecified essential hypertension 401.9 Active Assessment Acute non-recurrent maxillary sinusitis J01.00 Active Problem Acute upper respiratory infections of unspecified site 465.9 Active Problem Attention deficit disorder o f childhood without mention of hyperactivity 314.00 Active Problem Disturbance of skin sensation 782.0 Active Problem Other bursitis disorders 727.3 Act randall Problem Dysfunction of Eustachian tube 381.81 Active Problem Carpal tunnel syndrome 354.0 Activ e Medications Medication Code System Code Instructions Start Date End Date Status Dosage Effexor XR [facility] [address]-57 150 MG Orally in the am Sep 27, 2014 2 capsule Adderall XR [facility] [address]-11 20 mg Orally Once a day November 07, 2014 2 capsules in the morning Zithromax Z-Jairo [facility] [address]-13 250 MG Orally Once a day Jul 25, 2016 Jul 30, 2016 2 tablets on the first day, then 1 tablet daily for 4 days Procedures Procedure Coding System Code Date Office Visit, Est Pt., Level 3 CPT-4 07710 N ov 26, 2016 Vital Signs Date/Time: Jul 25, 2016 Cardiac Monitoring Heart Rate 84 bpm Weight 189.2 lbs Height 64 in BMI 32.47 Index Blood Pressure Diastolic 78 mmHg Blood Pressure Systolic 126 mmHg Results No Known Results Summary Purpose [employer] Submission
--- OUTSIDE RECORDS SUMMARY | 2020-02-11 01:36 | XMS REPORT ---
Author Author Elaine GALARZA Organization [facility] Address [address] [place] [address] Care Team Providers Care Assistant Professor Of Criminal Justice Name Role Phone MARI GALARZA Unavailable PROBLEMS Type Condition ICD9-CM Code [id number] Code Onset Dates Condition S tatus SNOMED Code Problem Seasonal allergies J30.2 Active 4 84512371 Problem Essential hypertension I10 Active 05902164 Problem Major depressive disorder, recurrent episode, in full remission F33.42 Active 604561031 Problem Primary insomnia F51.01 Active 397 2004 Problem ADHD, predominantly inattentive type F90.0 Active [id number] ALLERGIES No Information ENCOUNTERS Encounter Location Date Diagnosis [facility] [address] [id number] [address] [place] [address] Feb, ADHD, predominantly inattent randall type F90.0 and Primary insomnia F51.01 [facility] [address] [address] 08 Jan, 2018 ADHD, predominantly inattent randall type F90.0 and Primary insomnia F51.01 [facility] [address] [id number] [address] [place] [address] December, Seasonal allergies J30.2 and Post-nasal drip R09.82 [facility] [address] [id number] [address] [place] [address] December, ADHD, predominantly inattent randall type F90.0 and Primary insomnia F51.01 [facility] [address] [id number] [address] [place] [address] Nov, ADHD, predominantly inattent randall type F90.0 [facility] [address] [id number] [address] [place] [address] Oct, ADHD, predominantly inattent randall type F90.0 [facility] [address] [id number] [address] [place] [address] Oct, ADHD, predominantly inattent randall type F90.0 ; Primary insomnia F51.01 and Screening, lipid Z13.220 [facility] [address] [id number] [address] [place] [address] Sep, ADHD, predominantly inattent randall type F90.0 [facility] [address] [id number] [address] [place] [address] Aug, ADHD, predominantly inattent randall type F90.0 and Primary insomnia F51.01 [facility] [address] [id number] [address] [place] [address] Jul, ADHD, predominantly inattent randall type F90.0 [facility] [address] [id number] [address] [place] [address] Jul, Primary insomnia F51.01 and ADHD, predominantly inattentive type F90.0 [facility] [address] [id number] [address] [place] [address] Jun, ADHD, predominantly inattent randall type F90.0 [facility] [address] [id number] [address] [place] [address] May, ADHD, predominantly inattent randall type F90.0 [facility] [address] [id number] [address] [place] [address] Apr, ADHD, predominantly inattent randall type F90.0 [facility] [address] [id number] [address] [place] [address] Mar, ADHD, predominantly inattent randall type F90.0 ; Primary insomnia F51.01 ; Major depressive disorder, recurrent episode, in full remission F33.42 and Acne comedone L70.0 [facility] [address] [id number] [address] [place] [address] Mar, Major depressive disorder, r ecurrent episode, in full remission F33.42 and ADHD, predominantly inattentive type F90.0 [address] [address] [facility] [id number] [address] [place] [address] Feb, ADHD, predominantly inattent randall type F90.0 [address] [address] [address] [facility] [id number] [address] [place] [address] Feb, Primary insomnia F51.01 [facility] [address] [facility] [id number] [address] [place] [address] Jan, ADHD, predominantly inattent randall type F90.0 and Primary insomnia F51.01 [address] [address] [address] [address] [facility] [id number] [address] [place] [address] December, ADHD, predominantly inattent randall type F90.0 and Primary insomnia F51.01 [address] [address] [id number] [address] [place] [address] Oct, ADHD, predominantly inattent randall type F90.0 and Primary insomnia F51.01 [facility] [address] [facility] [id number] [address] [place] [address] Sep, ADHD, predominantly inattent randall type F90.0 and Primary insomnia F51.01 [place] [address] [address] [facility] [id number] [address] [place] [address] Aug, ADHD, predominantly inattent randall type F90.0 and Primary insomnia F51.01 [facility] [address] [facility] [id number] [address] [place] [address] Jul, Major depressive disorder, r ecurrent episode, in full remission F33.42 ; ADHD, predominantly inattentive type F90.0 ; Primary insomnia F51.01 ; Acute non-recurrent maxillary sinusitis J01.00 and Screening, lipid Z13.220 [facility] [address] [facility] [id number] [address] [place] [address] Jun, Acute non-recurrent maxillar y sinusitis J01.00 [facility] [address] [id number] [address] [place] [address] Jun, ADHD, predominantly inattent randall type F90.0 [facility] [address] [id number] [address] [place] [address] May, [facility] [address] [id number] [address] [place] [address] Apr, [facility] [address] [id number] [address] [place] [address] Feb, Rash R21 and Scabies B86 [facility] [address] [id number] [address] [place] [address] Feb, ADHD, predominantly inattent randall type F90.0 and Major depressive disorder, recurrent episode, in full remission F33.42 [facility] [address] [id number] [address] [place] [address] Feb, [facility] [address] [id number] [address] [place] [address] Oct, [facility] [address] [id number] [address] [place] [address] Sep, [facility] [address] [id number] [address] [place] [address] Sep, [facility] [address] [id number] [address] [place] [address] Aug, [facility] [address] [id number] [address] [place] [address] Jul, [facility] [address] [id number] [address] [place] [address] Jun, [facility] [address] [id number] [address] [place] [address] May, [facility] [address] [id number] [address] [place] [address] May, ADHD, predominantly inattent randall type F90.0 and Major depressive disorder, recurrent episode, in full remission F33.42 [facility] [address] [id number] [address] [place] [address] Feb, Major depressive disorder, r ecurrent episode, moderate 296.32 [facility] [address] [id number] [address] [place] [address] Feb, [facility] [address] [id number] [address] [place] [address] Jan, [facility] [address] [id number] [address] [place] [address] Jan, [facility] [address] [id number] [address] [place] [address] December, [facility] [address] [id number] [address] [place] [address] Nov, [facility] [address] [id number] [address] [place] [address] Nov, [facility] [address] [id number] [address] [place] [address] Oct, [facility] [address] [id number] [address] [place] [address] Oct, [facility] [address] [id number] [address] [place] [address] Sep, [facility] [address] [id number] [address] [place] [address] Sep, [facility] [address] [id number] [address] [place] [address] Sep, [facility] [address] [id number] [address] [place] [address] Sep, [facility] [address] [id number] [address] [place] [address] Aug, [facility] [address] [id number] [address] [place] [address], [place] [address] Aug, [facility] [address] [id number] [address] [place] [address], [place] [address] Aug, [facility] [address] [id number] [address] [place] [address], [place] [address] Aug, [facility] [address] [id number] [address] [place] [address], [place] [address] Aug, [facility] [address] [id number] [address] [place] [address], [place] [address] Aug, [facility] [address] [id number] [address] [place] [address], [place] [address] Jul, [facility] [address] [id number] [address] [place] [address], [place] [address] Jul, [facility] [address] [id number] [address] [place] [address], [place] [address] Jun, [facility] [address] [id number] [address] [place] [address], [place] [address] Jun, [facility] [address] [id number] [address] [place] [address], [place] [address] May, [facility] [address] [id number] [address] [place] [address], [place] [address] May, [facility] [address] [id number] [address] [place] [address], [place] [address] Apr, [facility] [address] [id number] [address] [place] [address], [place] [address] Apr, [facility] [address] [id number] [address] [place] [address], [place] [address] Apr, [facility] [address] [id number] [address] [place] [address], [place] [address] Mar, [facility] [address] [id number] [address] [place] [address], [place] [address] Mar, [facility] [address] [id number] [facility] [place] [address] Mar, [facility] [address] [id number] [address] [place] [address], [place] [address] Mar, [facility] [address] [id number] [address] [place] [address], [place] [address] Feb, [facility] [address] [id number] [address] [place] [address], [place] [address] Feb, [facility] [address] [id number] [address] [place] [address], [place] [address] Feb, [facility] [address] [id number] [address] [place] [address], [place] [address] Feb, [facility] [address] [id number] [address] [place] [address], [place] [address] Feb, [facility] [address] [id number] [address] [place] [address], [place] [address] Feb, [facility] [address] [id number] [address] [place] [address], [place] [address] Jan, [facility] [address] [id number] [address] [place] [address], [place] [address] Jan, [facility] [address] [id number] [address] [place] [address], [place] [address] Jan, [facility] [address] [id number] [address] [place] [address], [place] [address] Jan, [facility] [address] [id number] [address] [place] [address], [place] [address] December, [facility] [address] [id number] [address] [place] [address], [place] [address] December, [facility] [address] [id number] [address] [place] [address], [place] [address] December, [facility] [address] [id number] [address] [place] [address], [place] [address] December, [facility] [address] [id number] [facility] [place] [address] December, [facility] [address] [id number] [address] [place] [address], [place] [address] December, [facility] [address] [id number] [address] [place] [address], [place] [address] December, [facility] [address] [id number] [address] [place] [address], [place] [address] December, [facility] [address] [id number] [address] [place] [address], [place] [address] December, [facility] [address] [id number] [address] [place] [address], [place] [address] December, [facility] [address] [id number] [address] [place] [address], [place] [address] Nov, [facility] [address] [id number] [address] [place] [address], [place] [address] Nov, [facility] [address] [id number] [address] [place] [address], [place] [address] Oct, [facility] [address] [id number] [address] [place] [address], [place] [address] Oct, [facility] [address] [id number] [address] [place] [address], [place] [address] Oct, [facility] [address] [id number] [address] [place] [address], [place] [address] Oct, [facility] [address] [id number] [address] [place] [address], [place] [address] Oct, [facility] [address] [id number] [address] [place] [address], [place] [address] Oct, [facility] [address] [id number] [address] [place] [address], [place] [address] Aug, [facility] [address] [id number] [address] [place] [address], [place] [address] Aug, [facility] [address] [id number] [address] [place] [address], [place] [address] Aug, [facility] [address] [id number] [address] [place] [address], [place] [address] Aug, [facility] [address] [id number] [address] [place] [address], [place] [address] Aug, [facility] [address] [id number] [address] [place] [address], [place] [address] Aug, [facility] [address] [id number] [address] [place] [address], [place] [address] Aug, [facility] [address] [id number] [address] [place] [address], [place] [address] Aug, [facility] [address] [id number] [address] [place] [address], [place] [address] Jul, [facility] [address] [id number] [address] [place] [address], [place] [address] Jul, [facility] [address] [id number] [address] [place] [address], [place] [address] Jun, [facility] [address] [id number] [address] [place] [address], [place] [address] Jun, [facility] [address] [id number] [address] [place] [address], [place] [address] Jun, [facility] [address] [id number] [address] [place] [address], [place] [address] Jun, [facility] [address] [id number] [address] [place] [address], [place] [address] Jun, [facility] [address] [id number] [address] [place] [address], [place] [address] 07 Jun, 2013 [facility] [address] [id number] [address] [place] [address], [place] [address] May, [facility] [address] [id number] [address] [place] [address], [place] [address] May, [facility] [address] [id number] [address] [place] [address], [place] [address] Apr, [facility] [address] [id number] [address] [place] [address], [place] [address] Apr, [facility] [address] [id number] [address] [place] [address], [place] [address] Mar, [facility] [address] [id number] [address] [place] [address], [place] [address] Mar, [facility] [address] [id number] [address] [place] [address], [place] [address] Mar, [facility] [address] [id number] [address] [place] [address], [place] [address] Feb, [facility] [address] [id number] [address] [place] [address], [place] [address] Jan, [facility] [address] [id number] [address] [place] [address], [place] [address] December, [facility] [address] [id number] [address] [place] [address], [place] [address] December, [facility] [address] [id number] [address] [place] [address], [place] [address] December, [facility] [address] [id number] [address] [place] [address], [place] [address] December, [facility] [address] [id number] [address] [place] [address], [place] [address] December, [facility] [address] [id number] [address] [place] [address], [place] [address] December, [facility] [address] [id number] [address] [place] [address], [place] [address] Nov, [facility] [address] [id number] [address] [place] [address], [place] [address] 17 Nov, 2012 [facility] [address] [id number] [address] [place] [address], [place] [address] 08 Nov, 2012 [facility] [address] [id number] [address] [place] [address], [place] [address] 05 Oct, 2012 [facility] [address] [id number] [address] [place] [address], [place] [address] 14 Jun, 2012 [facility] [address] [id number] [address] [place] [address], [place] [address] 14 Jun, 2012 [facility] [address] [id number] [address] [place] [address], [place] [address] Jun, [facility] [address] [id number] [address] [place] [address], [place] [address] Jun, [facility] [address] [id number] [address] [place] [address], [place] [id number] 18 Apr, 2012 [facility] [address] [id number] [address] [place] [address], [place] [address] Mar, [facility] [address] [id number] [address] [place] [address], [place] [address] Mar, [facility] [address] [id number] [address] [place] [address], [place] [phone] Jan, [facility] [address] [id number] [address] [place] [address], [place] [address] December, [facility] [address] [id number] [address] [place] [address], [place] [address] 16 Nov, 2011 [facility] [address] [id number] [address] [place] [address], [place] [address] Nov, [facility] [address] [id number] [address] [place] [address], [place] [address] 05 Nov, 2011 [facility] [address] [id number] [address] [place] [address], [place] [address] Nov, [facility] [address] [id number] [address] [place] [id number] Aug, [facility] [address] [id number] [address] [place] [phone] Aug, [facility] [address] [id number] [address] [place] [phone] Jul, [facility] [address] [id number] [address] [place] [id number] Jun, [facility] [address] [id number] [address] [place] [id number] Jun, [facility] [address] [id number] [address] [place] [id number] Apr, [facility] [address] [facility] [id number] [address] [place] [phone] Feb, IMMUNIZATIONS No Known Immunizations SOCIAL HISTORY Never Assessed REASON FOR VISIT Controlled Med Refill 10/21/17 PLAN OF CARE VITAL SIGNS MEDICATIONS Medication Instructions Dosage Frequency Start Date End Date Duration S tatus Adderall XR 20 MG Orally Once a day 2 capsules in the morning 24h Sep, 28 days Active RESULTS No Results PROCEDURES No Known procedures INSTRUCTIONS MEDICATIONS ADMINISTERED No Known Medications MEDICAL (GENERAL) HISTORY Type Description Date Medical History Hypertension Medical History ADHD Medical History depression Medical History anxiety Surgical History section Surgical History collar bone repair
--- OUTSIDE RECORDS SUMMARY | 2020-02-11 01:36 | XMS REPORT ---
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 Name Role Phone SETH PORTILLO Unavailable PROBLEMS Type Condition ICD9-CM Code [id number] Code Onset Dates Condition S tatus SNOMED Code Problem Seasonal allergies J30.2 Active 4 18303958 Problem Essential hypertension I10 Active 09962887 Problem Major depressive disorder, recurrent episode, in full remission F33.42 Active 944854092 Problem Primary insomnia F51.01 Active 397 2004 Problem ADHD, predominantly inattentive type F90.0 Active [id number] ALLERGIES No Information ENCOUNTERS Encounter Location Date Diagnosis [facility] [address] [id number] [address] [place] [phone] 08 Jan, 2018 ADHD, predominantly inattent randall type F90.0 and Primary insomnia F51.01 [facility] [address] [facility] [id number] [address] [place] [phone] December, Seasonal allergies J30.2 and Post-nasal drip R09.82 [facility] [address] [id number] [address] [place] [id number] December, ADHD, predominantly inattent randall type F90.0 and Primary insomnia F51.01 [facility] [address] [facility] [id number] [address] [place] [phone] Nov, ADHD, predominantly inattent randall type F90.0 [facility] [address] [facility] [id number] [address] [place] [address] Oct, ADHD, predominantly inattent randall type F90.0 [facility] [address] [id number] [address] [place] [phone] Oct, ADHD, predominantly inattent randall type F90.0 ; Primary insomnia F51.01 and Screening, lipid Z13.220 [facility] [address] [id number] [address] [place] [id number] Sep, ADHD, predominantly inattent randall type F90.0 [facility] [address] [id number] [address] [place] [address] Aug, ADHD, predominantly inattent randall type F90.0 and Primary insomnia F51.01 [facility] [address] [id number] [address] [place] [address] Jul, ADHD, predominantly inattent randall type F90.0 [place] [address] [id number] [address] [place] [id number] Jul, Primary insomnia F51.01 and ADHD, predominantly inattentive type F90.0 [place] [address] [id number] [address] [place] [address] Jun, ADHD, predominantly inattent randall type F90.0 [facility] [address] [id number] [address] [place] [phone] May, ADHD, predominantly inattent randall type F90.0 [facility] [address] [id number] [address] [place] [phone] Apr, ADHD, predominantly inattent randall type F90.0 [facility] [address] [facility] [id number] [address] [place] [phone] Mar, ADHD, predominantly inattent randall type F90.0 ; Primary insomnia F51.01 ; Major depressive disorder, recurrent episode, in full remission F33.42 and Acne comedone L70.0 [facility] [address] [facility] [id number] [address] [place] [id number] 07 Mar, 2017 Major depressive disorder, r ecurrent episode, in full remission F33.42 and ADHD, predominantly inattentive type F90.0 [facility] [address] [facility] [id number] [address] [place] [phone] Feb, ADHD, predominantly inattent randall type F90.0 [facility] [address] [id number] [address] [place] [phone] Feb, Primary insomnia F51.01 [facility] [address] [id number] [address] [place] [phone] Jan, ADHD, predominantly inattent randall type F90.0 and Primary insomnia F51.01 [facility] [address] [facility] [id number] [address] [place] [phone] December, ADHD, predominantly inattent randall type F90.0 and Primary insomnia F51.01 [facility] [address] [facility] [id number] [address] [place] [address] Oct, ADHD, predominantly inattent randall type F90.0 and Primary insomnia F51.01 [facility] [address] [facility] [id number] [address] [place] [phone] Sep, ADHD, predominantly inattent randall type F90.0 and Primary insomnia F51.01 [facility] [address] [facility] [id number] [address] [place] [phone] Aug, ADHD, predominantly inattent randall type F90.0 and Primary insomnia F51.01 [facility] [address] [facility] [id number] [address] [place] [phone] Jul, Major depressive disorder, r ecurrent episode, in full remission F33.42 ; ADHD, predominantly inattentive type F90.0 ; Primary insomnia F51.01 ; Acute non-recurrent maxillary sinusitis J01.00 and Screening, lipid Z13.220 [facility] [address] [id number] [address] [place] [id number] Jun, Acute non-recurrent maxillar y sinusitis J01.00 [facility] [address] [facility] [id number] [address] [place] [phone] Jun, ADHD, predominantly inattent randall type F90.0 [facility] [address] [id number] [address] [place] [phone] May, [facility] [address] [id number] [address] [place] [phone] Apr, [facility] [address] [id number] [address] [place] [id number] Feb, 2016 Rash R21 and Scabies B86 [facility] [address] [id number] [address] [place] [phone] Feb, ADHD, predominantly inattent randall type F90.0 and Major depressive disorder, recurrent episode, in full remission F33.42 [facility] [address] [id number] [address] [place] [address] Feb, [facility] [address] [id number] [address] [place] [phone] Oct, [facility] [address] [id number] [address] [place] [phone] Sep, [facility] [address] [id number] [address] [place] [phone] Sep, [facility] [address] [id number] [address] [place] [phone] Aug, [facility] [address] [id number] [address] [place] [phone] Jul, [facility] [address] [id number] [address] [place] [phone] Jun, [facility] [address] [id number] [address] [place] [phone] May, [facility] [address] [id number] [address] [place] [phone] May, ADHD, predominantly inattent randall type F90.0 and Major depressive disorder, recurrent episode, in full remission F33.42 [facility] [address] [id number] [address] [place] [phone] Feb, Major depressive disorder, r ecurrent episode, moderate 296.32 [facility] [address] [id number] [address] [place] [phone] Feb, [facility] [address] [id number] [address] [place] [phone] Jan, [facility] [address] [id number] [address] [place] [phone] Jan, [facility] [address] [id number] [address] [place] [phone] December, [facility] [address] [id number] [address] [place] [id number] Nov, [facility] [address] [id number] [address] [place] [phone] Nov, [facility] [address] [id number] [address] [place] [id number] Oct, [facility] [address] [id number] [address] [place] [phone] Oct, [facility] [address] [id number] [address] [place] [phone] Sep, [facility] [address] [id number] [address] [place] [phone] Sep, [facility] [address] [id number] [address] [place] [phone] Sep, [facility] [address] [id number] [address] [place] [phone] Sep, [facility] [address] [id number] [address] [place] [phone] Aug, [facility] [address] [id number] [address] [place] [phone] Aug, [facility] [address] [id number] [address] [place] [id number] Aug, [facility] [address] [id number] [address] [place] [address], [place] [address] Aug, [facility] [address] [id number] [address] [place] [address], [place] [address] Aug, [facility] [address] [id number] [address] [place] [address], [place] [address] Aug, [facility] [address] [id number] [address] [place] [address], [place] [address] Jul, [facility] [address] [id number] [address] [place] [address], [place] [address] Jul, [facility] [address] [id number] [address] [place] [address], [place] [address] Jun, [facility] [address] [id number] [address] [place] [address], [place] [address] Jun, [facility] [address] [id number] [address] [place] [address], [place] [address] May, [facility] [address] [id number] [address] [place] [address], [place] [address] May, [facility] [address] [id number] [address] [place] [address], [place] [address] Apr, [facility] [address] [id number] [address] [place] [address], [place] [address] Apr, [facility] [address] [id number] [address] [place] [address], [place] [address] Apr, [facility] [address] [id number] [address] [place] [address], [place] [address] Mar, [facility] [address] [id number] [address] [place] [address], [place] [address] Mar, [facility] [address] [id number] [address] [place] [address], [place] [address] Mar, [facility] [address] [id number] [address] [place] [address], [place] [address] Mar, [facility] [address] [id number] [address] [place] [address], [place] [address] Feb, [facility] [address] [id number] [address] [place] [address], [place] [address] Feb, [facility] [address] [id number] [address] [place] [address], [place] [address] Feb, [facility] [address] [id number] [address] [place] [address], [place] [address] Feb, [facility] [address] [id number] [address] [place] [address], [place] [address] Feb, [facility] [address] [id number] [address] [place] [address], [place] [address] Feb, [facility] [address] [id number] [address] [place] [address], [place] [address] Jan, [facility] [address] [id number] [address] [place] [address], [place] [address] Jan, [facility] [address] [id number] [address] [place] [address], [place] [address] Jan, [facility] [address] [id number] [address] [place] [address], [place] [address] Jan, [facility] [address] [id number] [address] [place] [address], [place] [address] December, [facility] [address] [id number] [address] [place] [address], [place] [address] December, [facility] [address] [id number] [address] [place] [address], [place] [address] December, [facility] [address] [id number] [address] [place] [address], [place] [address] December, [facility] [address] [id number] [address] [place] [address], [place] [address] December, [facility] [address] [id number] [facility] [place] [address] December, [facility] [address] [id number] [facility] [place] [address] December, [facility] [address] [id number] [address] [place] [address], [place] [address] December, [facility] [address] [id number] [address] [place] [address], [place] [address] December, [facility] [address] [id number] [address] [place] [address], [place] [address] December, [facility] [address] [id number] [address] [place] [address], [place] [address] Nov, [facility] [address] [id number] [address] [place] [address], [place] [address] Nov, [facility] [address] [id number] [address] [place] [address], [place] [address] Oct, [facility] [address] [id number] [address] [place] [address], [place] [address] Oct, [facility] [address] [id number] [address] [place] [address], [place] [address] Oct, [facility] [address] [id number] [address] [place] [address], [place] [address] Oct, [facility] [address] [id number] [address] [place] [address], [place] [address] Oct, [facility] [address] [id number] [address] [place] [address], [place] [address] Oct, [facility] [address] [id number] [address] [place] [address], [place] [address] Aug, [facility] [address] [id number] [address] [place] [address], [place] [address] Aug, [facility] [address] [id number] [address] [place] [address], [place] [address] Aug, [facility] [address] [id number] [address] [place] [address], [place] [address] Aug, [facility] [address] [id number] [address] [place] [address], [place] [address] Aug, [facility] [address] [id number] [address] [place] [address], [place] [address] Aug, [facility] [address] [id number] [address] [place] [address], [place] [address] Aug, [facility] [address] [id number] [address] [place] [address], [place] [address] Aug, [facility] [address] [id number] [address] [place] [address], [place] [address] Jul, [facility] [address] [id number] [address] [place] [address], [place] [address] Jul, [facility] [address] [id number] [address] [place] [address], [place] [address] Jun, [facility] [address] [id number] [address] [place] [address], [place] [address] Jun, [facility] [address] [id number] [address] [place] [address] Jun, [facility] [address] [id number] [address] [place] [address], [place] [address] Jun, [facility] [address] [id number] [address] [place] [address] Jun, [facility] [address] [id number] [address] [place] [address], [place] [address] Jun, [facility] [address] [id number] [address] [place] [address] May, [facility] [address] [id number] [address] [place] [address], [place] [address] May, [facility] [address] [id number] [address] [place] [address], [place] [address] 16 Apr, 2013 [facility] [address] [id number] [address] [place] [address], [place] [address] Apr, [facility] [address] [id number] [address] [place] [address], [place] [address] Mar, [facility] [address] [id number] [address] [place] [address], [place] [address] Mar, [facility] [address] [id number] [address] [place] [address], [place] [address] Mar, [facility] [address] [id number] [address] [place] [address], [place] [address] Feb, [facility] [address] [id number] [address] [place] [address], [place] [address] Jan, [facility] [address] [id number] [address] [place] [address], [place] [address] December, [facility] [address] [id number] [address] [place] [address], [place] [address] December, [facility] [address] [id number] [address] [place] [address], [place] [address] December, [facility] [address] [id number] [address] [place] [address], [place] [address] December, [facility] [address] [id number] [address] [place] [address], [place] [address] December, [facility] [address] [id number] [address] [place] [address], [place] [address] December, [facility] [address] [id number] [address] [place] [address], [place] [address] Nov, [facility] [address] [id number] [address] [place] [address], [place] [address] Nov, [facility] [address] [id number] [address] [place] [address], [place] [address] Nov, [facility] [address] [id number] [address] [place] [address], [place] [address] 05 Oct, 2012 [facility] [address] [id number] [address] [place] [address], [place] [address] 14 Jun, 2012 [facility] [address] [id number] [address] [place] [address], [place] [address] 14 Jun, 2012 [facility] [address] [id number] [address] [place] [address], [place] [address] Jun, [facility] [address] [id number] [address] [place] [address], [place] [address] Jun, [facility] [address] [id number] [address] [place] [address], [place] [address] Apr, [facility] [address] [id number] [address] [place] [address], [place] [address] Mar, [facility] [address] [id number] [address] [place] [address], [place] [address] Mar, [facility] [address] [id number] [address] [place] [address], [place] [address] Jan, [facility] [address] [id number] [address] [place] [address], [place] [address] December, [facility] [address] [id number] [address] [place] [address], [place] [address] 16 Nov, 2011 [facility] [address] [id number] [address] [place] [address], [place] [address] Nov, [facility] [address] [id number] [address] [place] [address], [place] [address] Nov, [facility] [address] [id number] [address] [place] [address], [place] [address] Nov, [facility] [address] [id number] [address] [place] [address], [place] [address] Aug, [facility] [address] [id number] [address] [place] [address], [place] [address] Aug, [facility] [address] [facility] [id number] [address] [place] [phone] Jul, [facility] [address] [facility] [id number] [address] [place] [phone] Jun, [facility] [address] [facility] [id number] [address] [place] [phone] Jun, [facility] [address] [facility] [id number] [address] [place] [phone] Apr, [facility] [address] [facility] [id number] [address] [place] [id number] Feb, IMMUNIZATIONS No Known Immunizations SOCIAL HISTORY Never Assessed REASON FOR VISIT Controlled Med Refill PLAN OF CARE VITAL SIGNS MEDICATIONS Medication Instructions Dosage Frequency Start Date End Date Duration S tatus Ambien 10 mg Orally Once a day 1 tablet at bedtime as needed 24h Jul, 28 days Active Adderall XR 20 MG Orally Once a day 2 capsules in the morning 24h Jul, 28 days Active RESULTS No Results PROCEDURES No Known procedures INSTRUCTIONS MEDICATIONS ADMINISTERED No Known Medications MEDICAL (GENERAL) HISTORY Type Description Date Medical History Hypertension Medical History ADHD Medical History depression Medical History anxiety Surgical History section Surgical History collar bone repair
--- OUTSIDE RECORDS SUMMARY | 2020-02-11 01:37 | XMS REPORT ---
Author Author Elaine GALARZA Organization [employer] Address Unknown Phone Unavailable Care Team Providers Care Transit Worker Name Role Phone MARI GALARZA CP Unavailable Allergies No Known Allergies Problems Problem Type Condition Code Onset Dates [...] Active Problem Unspecified essential hypertension 401.9 Active Problem Acute upper respiratory infections of unspecified site 465.9 Active Problem Attention deficit disorder o f childhood without mention of hyperactivity 314.00 Active Problem Disturbance of skin sensation 782.0 Active Problem Other bursitis disorders 727.3 Act randall Problem Dysfunction of Eustachian tube 381.81 Active Problem Carpal tunnel syndrome 354.0 Activ e Medications No Known Medications Results No Known Results Summary Purpose [employer] Submission
--- OUTSIDE RECORDS SUMMARY | 2020-02-11 01:37 | XMS REPORT ---
Author Author Elaine GALARZA Organization [facility] [place] Address [address] [place] [address] Care Team Providers Care Chute Boss Name Role Phone MARI GALARZA Unavailable PROBLEMS Type Condition ICD9-CM Code QVO00-XM Code Onset Dates Condition S tatus SNOMED Code Problem Seasonal allergies J30.2 Active 4 92459490 Problem Essential hypertension I10 Active 41750157 Problem Major depressive disorder, recurrent episode, in full remission F33.42 Active 522207905 Problem Primary insomnia F51.01 Active 397 2004 Problem ADHD, predominantly inattentive type F90.0 Active [id number] ALLERGIES No Information ENCOUNTERS Encounter Location Date Diagnosis [facility] [place] [address] [id number] [address] [place] [phone] Jan, ADHD, predominantly inattent randall type F90.0 and Primary insomnia F51.01 [facility] [id number] [place] [phone] December, Seasonal allergies J30.2 and Post-nasal drip R09.82 [facility] [place] [address] [id number] [address] [place] [phone] December, ADHD, predominantly inattent randall type F90.0 and Primary insomnia F51.01 [facility] [place] [address] [id number] [address] [place] [phone] Nov, ADHD, predominantly inattent randall type F90.0 [facility] [place] [address] [id number] [address] [place] [phone] Oct, ADHD, predominantly inattent randall type F90.0 [facility] [place] [address] [id number] [address] [place] [id number] Oct, ADHD, predominantly inattent randall type F90.0 ; Primary insomnia F51.01 and Screening, lipid Z13.220 [facility] [place] [address] [id number] [address] [place] [phone] Sep, ADHD, predominantly inattent randall type F90.0 [facility] [place] [address] [id number] [address] [place] [phone] Aug, ADHD, predominantly inattent randall type F90.0 and Primary insomnia F51.01 [facility] [place] [address] [id number] [address] [place] [phone] Jul, ADHD, predominantly inattent randall type F90.0 [address] [address] [address] [address] [facility] [id number] [address] [place] [phone] Jul, Primary insomnia F51.01 and ADHD, predominantly inattentive type F90.0 [place] [address] [id number] [address] [place] [phone] Jun, ADHD, predominantly inattent randall type F90.0 [address] [id number] [address] [place] [phone] May, ADHD, predominantly inattent randall type F90.0 [facility] [place] [address] [id number] [address] [place] [id number] Apr, ADHD, predominantly inattent randall type F90.0 [place] [address] [address] [facility] [id number] [address] [place] [phone] Mar, ADHD, predominantly inattent randall type F90.0 ; Primary insomnia F51.01 ; Major depressive disorder, recurrent episode, in full remission F33.42 and Acne comedone L70.0 [facility] [place] [address] [facility] [id number] [address] [place] [phone] Mar, Major depressive disorder, r ecurrent episode, in full remission F33.42 and ADHD, predominantly inattentive type F90.0 [address] [address] [facility] [id number] [address] [place] [phone] Feb, ADHD, predominantly inattent randall type F90.0 [place] [address] [address] [facility] [id number] [address] [place] [phone] Feb, Primary insomnia F51.01 [facility] [place] [address] [facility] [id number] [address] [place] [phone] Jan, ADHD, predominantly inattent randall type F90.0 and Primary insomnia F51.01 [facility] [place] [address] [facility] [id number] [address] [place] [phone] December, ADHD, predominantly inattent randall type F90.0 and Primary insomnia F51.01 [place] [address] [address] [facility] [id number] [address] [place] [phone] Oct, ADHD, predominantly inattent randall type F90.0 and Primary insomnia F51.01 [facility] [place] [address] [id number] [address] [place] [phone] Sep, ADHD, predominantly inattent randall type F90.0 and Primary insomnia F51.01 [facility] [place] [address] [facility] [id number] [address] [place] [phone] Aug, ADHD, predominantly inattent randall type F90.0 and Primary insomnia F51.01 [facility] [place] [address] [id number] [address] [place] [id number] Jul, Major depressive disorder, r ecurrent episode, in full remission F33.42 ; ADHD, predominantly inattentive type F90.0 ; Primary insomnia F51.01 ; Acute non-recurrent maxillary sinusitis J01.00 and Screening, lipid Z13.220 [facility] [address] [facility] [id number] [address] [place] [phone] Jun, Acute non-recurrent maxillar y sinusitis J01.00 [facility] [place] [address] [facility] [id number] [address] [place] [id number] Jun, ADHD, predominantly inattent randall type F90.0 [facility] [place] [address] [id number] [address] [place] [phone] May, [facility] [place] [address] [id number] [address] [place] [phone] Apr, [facility] [address] [id number] [address] [place] [phone] Feb, Rash R21 and Scabies B86 [facility] [place] [address] [id number] [address] [place] [phone] Feb, ADHD, predominantly inattent randall type F90.0 and Major depressive disorder, recurrent episode, in full remission F33.42 [facility] [place] [address] [id number] [address] [place] [phone] Feb, [facility] [place] [address] [id number] [address] [place] [phone] Oct, [facility] [place] [address] [id number] [address] [place] [phone] Sep, [facility] [place] [address] [id number] [address] [place] [phone] Sep, [facility] [place] [address] [id number] [address] [place] [phone] Aug, [facility] [place] [address] [id number] [address] [place] [phone] Jul, [facility] [place] [address] [id number] [address] [place] [phone] Jun, [facility] [place] [address] [id number] [address] [place] [phone] May, [facility] [place] [address] [id number] [address] [place] [phone] May, ADHD, predominantly inattent randall type F90.0 and Major depressive disorder, recurrent episode, in full remission F33.42 [facility] [place] [address] [id number] [address] [place] [phone] Feb, Major depressive disorder, r ecurrent episode, moderate 296.32 [facility] [address] [id number] [address] [place] [phone] Feb, [facility] [address] [id number] [address] [place] [phone] Jan, [facility] [address] [id number] [address] [place] [phone] Jan, [facility] [address] [id number] [address] [place] [phone] December, [facility] [address] [id number] [address] [place] [phone] Nov, [facility] [address] [id number] [address] [place] [phone] Nov, [facility] [address] [id number] [address] [place] [phone] Oct, [facility] [address] [id number] [address] [place] [phone] Oct, [facility] [address] [id number] [address] [place] [phone] Sep, [facility] [address] [id number] [address] [place] [phone] Sep, [facility] [address] [id number] [address] [place] [phone] Sep, [facility] [address] [id number] [address] [place] [phone] Sep, [facility] [address] [id number] [address] [place] [phone] Aug, [facility] [address] [id number] [address] [place] [phone] Aug, [facility] [address] [id number] [address] [place] [phone] Aug, [facility] [address] [id number] [address] [place] [address], [place] [address] Aug, [facility] [address] [id number] [address] [place] [address], [place] [address] Aug, [facility] [address] [id number] [address] [place] [address], [place] [address] Aug, [facility] [address] [id number] [address] [place] [address], [place] [address] Jul, [facility] [address] [id number] [address] [place] [address], [place] [address] Jul, [facility] [address] [id number] [address] [place] [address], [place] [address] Jun, [facility] [address] [id number] [address] [place] [address], [place] [address] Jun, [facility] [address] [id number] [address] [place] [address], [place] [address] May, [facility] [address] [id number] [address] [place] [address], [place] [address] May, [facility] [address] [id number] [address] [place] [address], [place] [address] Apr, [facility] [address] [id number] [address] [place] [address], [place] [address] Apr, [facility] [address] [id number] [address] [place] [address], [place] [address] Apr, [facility] [address] [id number] [address] [place] [address], [place] [address] Mar, [facility] [address] [id number] [address] [place] [address], [place] [address] Mar, [facility] [address] [id number] [address] [place] [address], [place] [address] Mar, [facility] [address] [id number] [address] [place] [address], [place] [address] Mar, [facility] [address] [id number] [facility] [place] [address] Feb, [facility] [address] [id number] [address] [place] [address], [place] [address] Feb, [facility] [address] [id number] [address] [place] [address], [place] [address] Feb, [facility] [address] [id number] [address] [place] [address], [place] [address] Feb, [facility] [address] [id number] [address] [place] [address], [place] [address] Feb, [facility] [address] [id number] [address] [place] [address], [place] [address] Feb, [facility] [address] [id number] [address] [place] [address], [place] [address] Jan, [facility] [address] [id number] [address] [place] [address], [place] [address] Jan, [facility] [address] [id number] [address] [place] [address], [place] [address] Jan, [facility] [address] [id number] [address] [place] [address], [place] [address] Jan, [facility] [address] [id number] [address] [place] [address], [place] [address] December, [facility] [address] [id number] [address] [place] [address], [place] [address] December, [facility] [address] [id number] [address] [place] [address], [place] [address] December, [facility] [address] [id number] [address] [place] [address], [place] [address] December, [facility] [address] [id number] [address] [place] [address], [place] [address] December, [facility] [address] [id number] [facility] [place] [address] December, [facility] [address] [id number] [facility] [place] [address] December, [facility] [address] [id number] [facility] [place] [address] December, [facility] [address] [id number] [address] [place] [address], [place] [address] December, [facility] [address] [id number] [address] [place] [address], [place] [address] December, [facility] [address] [id number] [address] [place] [address], [place] [address] Nov, [facility] [address] [id number] [address] [place] [address], [place] [address] Nov, [facility] [address] [id number] [address] [place] [address], [place] [address] Oct, [facility] [address] [id number] [address] [place] [address], [place] [address] Oct, [facility] [address] [id number] [address] [place] [address], [place] [address] Oct, [facility] [address] [id number] [address] [place] [address], [place] [address] Oct, [facility] [address] [id number] [address] [place] [address], [place] [address] Oct, [facility] [address] [id number] [address] [place] [address], [place] [address] Oct, [facility] [address] [id number] [address] [place] [address], [place] [address] Aug, [facility] [address] [id number] [address] [place] [address], [place] [address] Aug, [facility] [address] [id number] [address] [place] [address], [place] [address] Aug, [facility] [address] [id number] [address] [place] [address], [place] [address] Aug, [facility] [address] [id number] [address] [place] [address], [place] [address] Aug, [facility] [address] [id number] [address] [place] [address], [place] [address] Aug, [facility] [address] [id number] [address] [place] [address], [place] [address] Aug, [facility] [address] [id number] [address] [place] [address], [place] [address] Aug, [facility] [address] [id number] [address] [place] [address], [place] [address] Jul, [facility] [address] [id number] [address] [place] [address], [place] [address] Jul, [facility] [address] [id number] [address] [place] [address], [place] [address] Jun, [facility] [address] [id number] [address] [place] [address], [place] [address] Jun, [facility] [address] [id number] [address] [place] [address], [place] [address] Jun, [facility] [address] [id number] [address] [place] [id number] Jun, [facility] [address] [id number] [address] [place] [phone] Jun, [facility] [address] [id number] [address] [place] [address], [place] [address] Jun, [facility] [address] [id number] [address] [place] [phone] May, [facility] [address] [id number] [address] [place] [phone] May, [facility] [address] [id number] [address] [place] [address], [place] [address] 16 Apr, 2013 [facility] [address] [id number] [address] [place] [address], [place] [address] Apr, [facility] [address] [id number] [address] [place] [address], [place] [address] Mar, [facility] [address] [id number] [address] [place] [address], [place] [address] Mar, [facility] [address] [id number] [address] [place] [address], [place] [address] Mar, [facility] [address] [id number] [address] [place] [address], [place] [address] Feb, [facility] [address] [id number] [address] [place] [address], [place] [address] Jan, [facility] [address] [id number] [address] [place] [address], [place] [address] December, [facility] [address] [id number] [address] [place] [address], [place] [address] December, [facility] [address] [id number] [address] [place] [address], [place] [address] December, [facility] [address] [id number] [address] [place] [address], [place] [address] December, [facility] [address] [id number] [address] [place] [address], [place] [address] December, [facility] [address] [id number] [address] [place] [address], [place] [address] December, [facility] [address] [id number] [address] [place] [address], [place] [address] 18 Nov, 2012 [facility] [address] [id number] [address] [place] [address], [place] [address] Nov, [facility] [address] [id number] [address] [place] [address], [place] [address] Nov, [facility] [address] [id number] [address] [place] [address], [place] [address] 05 Oct, 2012 [facility] [address] [id number] [address] [place] [address], [place] [address] 14 Jun, 2012 [facility] [address] [id number] [address] [place] [address], [place] [address] 14 Jun, 2012 [facility] [address] [id number] [address] [place] [address], [place] [address] Jun, [facility] [address] [id number] [address] [place] [address], [place] [address] Jun, [facility] [address] [id number] [address] [place] [address], [place] [address] 18 Apr, 2012 [facility] [address] [id number] [address] [place] [address], [place] [address] Mar, [facility] [address] [id number] [address] [place] [address], [place] [address] Mar, [facility] [address] [id number] [address] [place] [address], [place] [address] Jan, [facility] [address] [id number] [address] [place] [address], [place] [address] December, [facility] [address] [id number] [address] [place] [address], [place] [address] 16 Nov, 2011 [facility] [address] [id number] [address] [place] [address], [place] [address] Nov, [facility] [address] [id number] [address] [place] [address], [place] [address] Nov, [facility] [address] [id number] [address] [place] [address], [place] [address] Nov, [facility] [address] [id number] [address] [place] [address], [place] [id number] Aug, [facility] [address] [id number] [address] [place] [id number] Aug, [facility] [address] [facility] [id number] [address] [place] [id number] Jul, [facility] [address] [facility] [id number] [address] [place] [id number] Jun, [facility] [address] [facility] [id number] [address] [place] [id number] Jun, [facility] [address] [facility] [id number] [address] [place] [id number] Apr, [facility] [address] [facility] [id number] [address] [place] [id number] Feb, IMMUNIZATIONS No Known Immunizations SOCIAL HISTORY Never Assessed REASON FOR VISIT Controlled Med Refill 09/23/17 PLAN OF CARE VITAL SIGNS MEDICATIONS Medication Instructions Dosage Frequency Start Date End Date Duration S tatus Ambien 10 MG Orally Once a day 1 tablet at bedtime as needed 24h Jul, 30 days Active Adderall XR 20 MG Orally Once a day 2 capsules in the morning 24h Aug, 28 days Active RESULTS No Results PROCEDURES No Known procedures INSTRUCTIONS MEDICATIONS ADMINISTERED No Known Medications MEDICAL (GENERAL) HISTORY Type Description Date Medical History Hypertension Medical History ADHD Medical History depression Medical History anxiety Surgical History section Surgical History collar bone repair
--- OUTSIDE RECORDS SUMMARY | 2020-02-11 01:37 | XMS REPORT ---
Author Author Elaine BASURTO [facility] eClinicalWorks Address Unknown Phone Unavailable Care Team Providers Care Biophysics Professor Name Role Phone TERESA BASURTO CP Unavailable Allergies No Known Allergies Problems [...] Instructions Start Date End Date Status Dosage Adderall XR [facility] [address]-02 20 MG Orally Onc e a day in the morning for ADHD. Dr Knight to sign for [place] November 07, 2014 2 capsule Results No Known Results Summary Purpose eClinicalWorks Submission
--- OUTSIDE RECORDS SUMMARY | 2020-02-11 01:37 | XMS REPORT ---
Author Author Elaine GALARZA [facility] Address [address] [place] [address] Care Team Providers Care Senior Training And Development Rep Name Role Phone MARI GALARZA Unavailable PROBLEMS Type Condition ICD9-CM Code ARI14-SZ Code Onset Dates Condition S tatus SNOMED Code Problem Essential hypertension I10 Active 66775712 Problem Primary insomnia F51.01 Active 397 2004 Problem ADHD, predominantly inattentive type F90.0 Active 85762210 Problem Major depressive disorder, recurrent episode, in full remission F33.42 Active 148045117 ALLERGIES No Known Allergies SOCIAL HISTORY No smoking Hx information available PLAN OF CARE VITAL SIGNS MEDICATIONS Medication Instructions Dosage Frequency Start Date End Date Duration S tatus Adderall XR 20 mg Orally Once a day 2 capsules in the morning 24h Aug, 28 days Active Ambien 10 mg Orally Once a day 1 tablet at bedtime as needed 24h Jul, 28 days Active RESULTS No Results PROCEDURES No Known procedures IMMUNIZATIONS No Known Immunizations
--- OUTSIDE RECORDS SUMMARY | 2020-02-11 01:37 | XMS REPORT ---
Author Elaine Allan Organization [employer] Address Unknown Phone Unavailable Care Team Providers Care Merchandise Carrier Name Role Phone TERESA BASURTO CP Unavailable Allergies, Adverse Reactions, Alerts Substance [...] Problem Unspecified essential hypertension 401.9 Active Assessment Major depressive disorder, recurrent epi sode, in full remission F33.42 Active Assessment ADHD, predominantly inattentive type F90.0 Active Problem Acute upper respiratory infections of [...] Date End Date Status Dosage Adderall XR [facility] [address]-04 20 mg Orally Once a day November 07, 2014 2 capsule Effexor XR [facility] [address]-62 150 MG Orally in the am Sep 27, 2014 2 capsule Lisinopril-Hydrochlorothiazide [facility] [address]-55 20-12.5 mg Aug 1 tablet by Oral route 1 time per day Atenolol [facility] [address]-71 50 mg Sep 27, 2014 1 ta blet by Oral route 1 time per day Procedures Procedure Coding System Code Date Office Visit, Est Pt., Level 4 CPT-4 93302 March 05, 2016 Vital Signs Date/Time: March 05, 2016 Cardiac Monitoring Heart Rate 92 bpm Weight 173.5 lbs Height 64 in Blood Pressure Diastolic 62 mmHg Blood Pressure Systolic 118 mmHg Results No Known Results Summary Purpose [employer] Submission
--- OUTSIDE RECORDS SUMMARY | 2020-02-11 01:37 | XMS REPORT ---
Author Author Elaine GALARZA Organization [facility] Address [address] [place] [address] Care Team Providers Care Alarm Mechanic Name Role Phone MARI GALARZA Unavailable PROBLEMS Type Condition ICD9-CM Code [id number] Code Onset Dates Condition S tatus SNOMED Code Problem Essential hypertension I10 Active 89961768 Problem Primary insomnia F51.01 Active 397 2004 Problem ADHD, predominantly inattentive type F90.0 Active 42195210 Problem Major depressive disorder, recurrent episode, in full remission F33.42 Active [id number] ALLERGIES No Information ENCOUNTERS Encounter Location Date Diagnosis [place] [address] [address] Nov, ADHD, predominantly inattent randall type F90.0 [place] [address] [address] Oct, ADHD, predominantly inattent randall type F90.0 [place] [address] [address] [place] [id number] [address] [place] [address] Oct, ADHD, predominantly inattent randall type F90.0 ; Primary insomnia F51.01 and Screening, lipid Z13.220 [place] [address] [place] [id number] [address] [place] [address] Sep, ADHD, predominantly inattent randall type F90.0 [place] [address] [address] Aug, ADHD, predominantly inattent randall type F90.0 and Primary insomnia F51.01 [place] [address] [place] [id number] [address] [place] [address] Jul, ADHD, predominantly inattent rnadall type F90.0 [facility] [address] [id number] [address] [place] [address] Jul, Primary insomnia F51.01 and ADHD, predominantly inattentive type F90.0 [facility] [address] [id number] [address] [place] [address] Jun, ADHD, predominantly inattent randall type F90.0 [facility] [address] [id number] [address] [place] [address] May, ADHD, predominantly inattent randall type F90.0 [facility] [address] [id number] [address] [place] [address] Apr, ADHD, predominantly inattent randall type F90.0 [facility] [address] [id number] [address] [place] [address] Mar, ADHD, predominantly inattent randall type F90.0 ; Primary insomnia F51.01 ; Major depressive disorder, recurrent episode, in full remission F33.42 and Acne comedone L70.0 [facility] [address] [id number] [address] [place] [address] Mar, Major depressive disorder, r ecurrent episode, in full remission F33.42 and ADHD, predominantly inattentive type F90.0 [facility] [address] [id number] [address] [place] [address] Feb, ADHD, predominantly inattent randall type F90.0 [facility] [address] [id number] [address] [place] [address] Feb, Primary insomnia F51.01 [facility] [address] [id number] [address] [place] [address] Jan, ADHD, predominantly inattent randall type F90.0 and Primary insomnia F51.01 [facility] [address] [id number] [address] [place] [address] December, ADHD, predominantly inattent randall type F90.0 and Primary insomnia F51.01 [facility] [address] [id number] [address] [place] [address] Oct, ADHD, predominantly inattent randall type F90.0 and Primary insomnia F51.01 [facility] [address] [id number] [address] [place] [address] Sep, ADHD, predominantly inattent randall type F90.0 and Primary insomnia F51.01 [place] [address] [facility] [id number] [address] [place] [address] Aug, ADHD, predominantly inattent randall type F90.0 and Primary insomnia F51.01 [place] [address] [facility] [id number] [address] [place] [address] Jul, Major depressive disorder, r ecurrent episode, in full remission F33.42 ; ADHD, predominantly inattentive type F90.0 ; Primary insomnia F51.01 ; Acute non-recurrent maxillary sinusitis J01.00 and Screening, lipid Z13.220 [facility] [address] [facility] [id number] [address] [place] [address] Jun, Acute non-recurrent maxillar y sinusitis J01.00 [place] [address] [facility] [id number] [address] [place] [address] Jun, ADHD, predominantly inattent randall type F90.0 [place] [address] [facility] [id number] [address] [place] [address] May, [facility] [address] [facility] [id number] [address] [place] [address] Apr, [facility] [address] [facility] [id number] [address] [place] [address] Feb, Rash R21 and Scabies B86 [facility] [address] [facility] [id number] [address] [place] [address] Feb, ADHD, predominantly inattent rnadall type F90.0 and Major depressive disorder, recurrent episode, in full remission F33.42 [place] [address] [id number] [address] [place] [address] Feb, [facility] [address] [id number] [address] [place] [address] Oct, [facility] [address] [id number] [address] [place] [address] Sep, [facility] [address] [id number] [address] [place] [address] Sep, [facility] [address] [id number] [address] [place] [address] Aug, [facility] [address] [id number] [address] [place] [address] Jul, [facility] [address] [id number] [address] [place] [address] Jun, [facility] [address] [id number] [address] [place] [address] May, [facility] [address] [id number] [address] [place] [address] May, ADHD, predominantly inattent randall type F90.0 and Major depressive disorder, recurrent episode, in full remission F33.42 [facility] [address] [id number] [address] [place] [address] Feb, Major depressive disorder, r ecurrent episode, moderate 296.32 [facility] [address] [id number] [address] [place] [address] Feb, [facility] [address] [id number] [address] [place] [address] Jan, [facility] [address] [id number] [address] [place] [address] Jan, [facility] [address] [id number] [address] [place] [address] December, [facility] [address] [id number] [address] [place] [address], [place] [address] 14 Nov, 2014 [facility] [address] [id number] [address] [place] [address], [place] [address] 13 Nov, 2014 [facility] [address] [id number] [address] [place] [address], [place] [address] Oct, [facility] [address] [id number] [address] [place] [address], [place] [address] Oct, [facility] [address] [id number] [address] [place] [address], [place] [address] Sep, [facility] [address] [id number] [address] [place] [address], [place] [address] Sep, [facility] [address] [id number] [address] [place] [address], [place] [address] Sep, [facility] [address] [id number] [address] [place] [address], [place] [address] Sep, [facility] [address] [id number] [address] [place] [address], [place] [address] Aug, [facility] [address] [id number] [address] [place] [address], [place] [address] Aug, [facility] [address] [id number] [address] [place] [address], [place] [address] Aug, [facility] [address] [id number] [address] [place] [address], [place] [address] Aug, [facility] [address] [id number] [address] [place] [address], [place] [address] Aug, [facility] [address] [id number] [address] [place] [address], [place] [address] Aug, [facility] [address] [id number] [address] [place] [address], [place] [address] Jul, [facility] [address] [id number] [address] [place] [address], [place] [address] Jul, [facility] [address] [id number] [address] [place] [address], [place] [address] Jun, [facility] [address] [id number] [address] [place] [address], [place] [address] Jun, [facility] [address] [id number] [address] [place] [address], [place] [address] May, [facility] [address] [id number] [address] [place] [address], [place] [address] May, [facility] [address] [id number] [address] [place] [address], [place] [address] Apr, [facility] [address] [id number] [address] [place] [address], [place] [address] Apr, [facility] [address] [id number] [address] [place] [address], [place] [address] Apr, [facility] [address] [id number] [address] [place] [address], [place] [address] Mar, [facility] [address] [id number] [address] [place] [address], [place] [address] Mar, [facility] [address] [id number] [address] [place] [address], [place] [address] Mar, [facility] [address] [id number] [address] [place] [address], [place] [address] Mar, [facility] [address] [id number] [address] [place] [address], [place] [address] Feb, [facility] [address] [id number] [address] [place] [address], [place] [address] Feb, [facility] [address] [id number] [address] [place] [address], [place] [address] Feb, [facility] [address] [id number] [address] [place] [address], [place] [address] Feb, [facility] [address] [id number] [address] [place] [address], [place] [address] Feb, [facility] [address] [id number] [facility] [place] [address] Feb, [facility] [address] [id number] [address] [place] [address], [place] [address] Jan, [facility] [address] [id number] [address] [place] [address], [place] [address] Jan, [facility] [address] [id number] [address] [place] [address], [place] [address] Jan, [facility] [address] [id number] [address] [place] [address], [place] [address] Jan, [facility] [address] [id number] [address] [place] [address], [place] [address] December, [facility] [address] [id number] [address] [place] [address], [place] [address] December, [facility] [address] [id number] [address] [place] [address], [place] [address] December, [facility] [address] [id number] [address] [place] [address], [place] [address] December, [facility] [address] [id number] [address] [place] [address], [place] [address] December, [facility] [address] [id number] [address] [place] [address], [place] [address] December, [facility] [address] [id number] [address] [place] [address], [place] [address] December, [facility] [address] [id number] [address] [place] [address], [place] [address] December, [facility] [address] [id number] [address] [place] [address], [place] [address] December, [facility] [address] [id number] [address] [place] [address], [place] [address] December, [facility] [address] [id number] [facility] [place] [address] 16 Nov, 2013 [facility] [address] [id number] [address] [place] [address], [place] [address] Nov, [facility] [address] [id number] [address] [place] [address], [place] [address] Oct, [facility] [address] [id number] [address] [place] [address], [place] [address] Oct, [facility] [address] [id number] [address] [place] [address], [place] [address] Oct, [facility] [address] [id number] [address] [place] [address], [place] [address] Oct, [facility] [address] [id number] [address] [place] [address], [place] [address] Oct, [facility] [address] [id number] [address] [place] [address], [place] [address] Oct, [facility] [address] [id number] [address] [place] [address], [place] [address] Aug, [facility] [address] [id number] [address] [place] [address], [place] [address] Aug, [facility] [address] [id number] [address] [place] [address], [place] [address] Aug, [facility] [address] [id number] [address] [place] [address], [place] [address] Aug, [facility] [address] [id number] [address] [place] [address], [place] [address] Aug, [facility] [address] [id number] [address] [place] [address], [place] [address] Aug, [facility] [address] [id number] [address] [place] [address], [place] [address] Aug, [facility] [address] [id number] [address] [place] [address], [place] [address] Aug, [facility] [address] [id number] [address] [place] [address], [place] [address] Jul, [facility] [address] [id number] [address] [place] [address], [place] [address] Jul, [facility] [address] [id number] [address] [place] [address], [place] [address] Jun, [facility] [address] [id number] [address] [place] [address], [place] [address] Jun, [facility] [address] [id number] [address] [place] [address], [place] [address] Jun, [facility] [address] [id number] [address] [place] [address], [place] [address] Jun, [facility] [address] [id number] [address] [place] [address], [place] [address] Jun, [facility] [address] [id number] [address] [place] [address], [place] [address] Jun, [facility] [address] [id number] [address] [place] [address], [place] [address] May, [facility] [address] [id number] [address] [place] [address], [place] [address] May, [facility] [address] [id number] [address] [place] [address], [place] [address] Apr, [facility] [address] [id number] [address] [place] [address], [place] [address] Apr, [facility] [address] [id number] [address] [place] [address], [place] [address] Mar, [facility] [address] [id number] [address] [place] [address], [place] [address] Mar, [facility] [address] [id number] [address] [place] [address], [place] [address] Mar, [facility] [address] [id number] [address] [place] [address], [place] [address] Feb, [facility] [address] [id number] [address] [place] [address], [place] [address] Jan, [facility] [address] [id number] [address] [place] [address], [place] [address] December, [facility] [address] [id number] [address] [place] [address], [place] [address] December, [facility] [address] [id number] [address] [place] [address], [place] [address] December, [facility] [address] [id number] [address] [place] [address], [place] [address] December, [facility] [address] [id number] [address] [place] [address], [place] [address] December, [facility] [address] [id number] [address] [place] [address], [place] [address] December, [facility] [address] [id number] [address] [place] [address], [place] [address] Nov, [facility] [address] [id number] [address] [place] [address], [place] [address] Nov, [facility] [address] [id number] [address] [place] [address], [place] [address] Nov, [facility] [address] [id number] [address] [place] [address], [place] [address] 05 Oct, 2012 [facility] [address] [id number] [address] [place] [address], [place] [address] Jun, [facility] [address] [id number] [address] [place] [address], [place] [address] Jun, [facility] [address] [id number] [address] [place] [address], [place] [address] Jun, [facility] [address] [id number] [address] [place] [address], [place] [address] Jun, [facility] [address] [id number] [address] [place] [address], [place] [address] 18 Apr, 2012 [facility] [address] [id number] [address] [place] [address], [place] [address] Mar, [facility] [address] [id number] [address] [place] [address], [place] [address] Mar, [facility] [address] [id number] [address] [place] [address], [place] [address] Jan, [facility] [address] [id number] [address] [place] [address], [place] [address] December, [facility] [address] [id number] [address] [place] [address], [place] [address] Nov, [facility] [address] [id number] [address] [place] [address], [place] [address] Nov, [facility] [address] [id number] [address] [place] [address], [place] [address] Nov, [facility] [address] [id number] [address] [place] [address], [place] [address] Nov, [facility] [address] [id number] [address] [place] [address], [place] [address] Aug, [facility] [address] [id number] [address] [place] [address], [place] [address] Aug, [facility] [address] [id number] [address] [place] [address], [place] [address] Jul, [facility] [address] [id number] [address] [place] [address], [place] [address] Jun, [facility] [address] [id number] [address] [place] [address], [place] [address] Jun, [facility] [address] [id number] [address] [place] [address], [place] [address] 14 Apr, 2011 [facility] [address] [id number] [address] [place] [address], [place] [address] Feb, IMMUNIZATIONS No Known Immunizations SOCIAL HISTORY Never Assessed REASON FOR VISIT Controlled Med Refill 05/18/2017 PLAN OF CARE VITAL SIGNS MEDICATIONS Medication Instructions Dosage Frequency Start Date End Date Duration S dante Adderall XR 20 MG Orally Once a day 2 capsules in the morning 24h Apr, 28 days Active RESULTS No Results PROCEDURES No Known procedures INSTRUCTIONS MEDICATIONS ADMINISTERED No Known Medications MEDICAL (GENERAL) HISTORY Type Description Date Medical History Hypertension Medical History ADHD Medical History depression Medical History anxiety Surgical History section Surgical History collar bone repair
--- OUTSIDE RECORDS SUMMARY | 2020-02-11 01:37 | XMS REPORT ---
Author Author Elaine GALARZA Organization [facility] [place] Address [address] [place] [address] Care Team Providers Care Appointment Coordinator Name Role Phone MARI GALARZA Unavailable PROBLEMS Type Condition ICD9-CM Code [id number] Code Onset Dates Condition S tatus SNOMED Code Problem Essential hypertension I10 Active 47693136 Problem Primary insomnia F51.01 Active 397 2004 Problem ADHD, predominantly inattentive type F90.0 Active 92913042 Problem Major depressive disorder, recurrent episode, in full remission F33.42 Active 437867561 ALLERGIES Substance Reaction Event Type Date Status N.K.D.A. Unknown Non Drug Allergy Jul, Unknown SOCIAL HISTORY No smoking Hx information available PLAN OF CARE Activity Details Follow Up 6 Months Reason:ADHD VITAL SIGNS Height 64 in 2016-08-26 Weight 188.3 lbs 2016-08-26 Temperature 97.5 degrees Fahrenheit 2016-08-26 Heart Rate 88 bpm 2016-08-26 Respiratory Rate 18 2016-08-26 BMI 32.32 kg/m2 2016-08-26 Blood pressure systolic 140 mmHg 2016-08-26 Blood pressure diastolic 80 mmHg 2016-08-26 MEDICATIONS Medication Instructions Dosage Frequency Start Date End Date Duration S tatus Ambien 10 mg Orally Once a day 1 tablet at bedtime as needed 24h Jul, 28 days Active Effexor XR 150 MG Orally Once a day 2 capsules 24h Aug, 90 days Active Levaquin 500 MG Orally Once a day 1 tablet 24h Jul, 7 2016 10 day(s) Active Adderall XR 20 mg Orally Once a day 2 capsules in the morning 24h Jul, 28 days Active RESULTS No Results PROCEDURES Procedure Date Ordered Related Diagnosis Body Site Office Visit, Est Pt., Level 3 Aug 26, 2016 IMMUNIZATIONS No Known Immunizations
--- OUTSIDE RECORDS SUMMARY | 2020-02-11 01:37 | XMS REPORT ---
Author Elaine Bronson Organization [employer] Address Unknown Phone Unavailable Care Team Providers Care Bi Architect Name Role Phone PURVI MERRITT CP Unavailable Allergies, Adverse Reactions, Alerts Substance [...] Problem Unspecified essential hypertension 401.9 Active Assessment Scabies B86 Active Assessment Rash R21 Active Problem Acute upper respiratory infections of [...] Date End Date Status Dosage Adderall XR [facility] [address]-54 20 mg Orally Once a day November 07, 2014 2 capsule Effexor XR [facility] [address]-59 150 MG Orally in the am Sep 27, 2014 2 capsule Permethrin [facility] [address]-82 5 % Externally once March 05, 2016 Apply neck down for 8-12 hours, then wash Procedures Procedure Coding System Code Date Office Visit, Est Pt., Level 3 CPT-4 09570 [id number] [email or web address] Vital Signs Date/Time: March 05, 2016 Cardiac Monitoring Heart Rate 86 bpm Weight 173.5 lbs Height 64 in Blood Pressure Diastolic 72 mmHg Blood Pressure Systolic 112 mmHg Results No Known Results Summary Purpose [employer] Submission
--- OUTSIDE RECORDS SUMMARY | 2020-02-11 01:37 | XMS REPORT ---
Author Author Elaine BASURTO Organization [employer] Address Unknown Phone Unavailable Care Team Providers Care Computer Numerical Control Grinder Name Role Phone TERESA BASURTO CP Unavailable [...] Date End Date Status Dosage Adderall XR [facility] [address]-67 20 mg Orally. Needs appt . Once a day November 07, 2014 2 capsule Results No Known Results Summary Purpose [employer] Submission
--- OUTSIDE RECORDS SUMMARY | 2020-02-11 01:37 | XMS REPORT ---
Author Author Elaine GALARZA Organization [facility] Address [address] [place] [address] Care Team Providers Care Analytical Chemistry Teacher Name Role Phone MARI GALARZA Unavailable PROBLEMS Type Condition ICD9-CM Code [id number] Code Onset Dates Condition S tatus SNOMED Code Problem Essential hypertension I10 Active 62194055 Problem Primary insomnia F51.01 Active 397 2004 Problem ADHD, predominantly inattentive type F90.0 Active 56550402 Problem Major depressive disorder, recurrent episode, in full remission F33.42 Active [id number] ALLERGIES No Information ENCOUNTERS Encounter Location Date Diagnosis [place] [address] [place] [id number] [address] [place] [address] Oct, ADHD, predominantly inattent randall type F90.0 [place] [address] [place] [id number] [address] [place] [address] Oct, ADHD, predominantly inattent randall type F90.0 ; Primary insomnia F51.01 and Screening, lipid Z13.220 [place] [address] [place] [id number] [address] [place] [address] Sep, ADHD, predominantly inattent randall type F90.0 [place] [address] [place] [id number] [address] [place] [address] Aug, ADHD, predominantly inattent randall type F90.0 and Primary insomnia F51.01 [place] [address] [place] [id number] [address] [place] [address] Jul, ADHD, predominantly inattent randall type F90.0 [place] [address] [place] [id number] [address] [place] [address] Jul, Primary insomnia F51.01 and ADHD, predominantly inattentive type F90.0 [facility] [address] [id number] [address] [place] [address] Jun, ADHD, predominantly inattent randall type F90.0 [facility] [address] [id number] [address] [place] [address] May, ADHD, predominantly inattent randall type F90.0 [facility] [address] [id number] [address] [place] [address] Apr, ADHD, predominantly inattent randall type F90.0 [facility] [address] [id number] [address] [place] [address] Mar, ADHD, predominantly inattent randall type F90.0 ; Primary insomnia F51.01 ; Major depressive disorder, recurrent episode, in full remission F33.42 and Acne comedone L70.0 [facility] [address] [id number] [address] [place] [address] Mar, Major depressive disorder, r ecurrent episode, in full remission F33.42 and ADHD, predominantly inattentive type F90.0 [facility] [address] [id number] [address] [place] [address] Feb, ADHD, predominantly inattent randall type F90.0 [facility] [address] [facility] [place] [id number] [address] [place] [address] Feb, Primary insomnia F51.01 [facility] [address] [facility] [place] [id number] [address] [place] [address] Jan, ADHD, predominantly inattent randall type F90.0 and Primary insomnia F51.01 [facility] [address] [facility] [place] [id number] [address] [place] [address] December, ADHD, predominantly inattent randall type F90.0 and Primary insomnia F51.01 [facility] [address] [facility] [place] [id number] [address] [place] [address] Oct, ADHD, predominantly inattent randall type F90.0 and Primary insomnia F51.01 [facility] [address] [id number] [address] [place] [address] Sep, ADHD, predominantly inattent randall type F90.0 and Primary insomnia F51.01 [facility] [address] [id number] [address] [place] [address] Aug, ADHD, predominantly inattent randall type F90.0 and Primary insomnia F51.01 [facility] [address] [id number] [address] [place] [address] Jul, Major depressive disorder, r ecurrent episode, in full remission F33.42 ; ADHD, predominantly inattentive type F90.0 ; Primary insomnia F51.01 ; Acute non-recurrent maxillary sinusitis J01.00 and Screening, lipid Z13.220 [facility] [address] [id number] [address] [place] [address] Jun, Acute non-recurrent maxillar y sinusitis J01.00 [facility] [address] [id number] [address] [place] [address] Jun, ADHD, predominantly inattent randall type F90.0 [facility] [address] [id number] [address] [place] [address] May, [facility] [address] [facility] [place] [id number] [address] [place] [address] Apr, [facility] [address] [id number] [address] [place] [address] Feb, Rash R21 and Scabies B86 [facility] [address] [id number] [address] [place] [address] Feb, ADHD, predominantly inattent randall type F90.0 and Major depressive disorder, recurrent episode, in full remission F33.42 [facility] [address] [id number] [address] [place] [address] Feb, [facility] [address] [id number] [address] [place] [address] Oct, [facility] [address] [id number] [address] [place] [address] Sep, [facility] [address] [id number] [address] [place] [address] Sep, [facility] [address] [id number] [address] [place] [phone] Aug, [facility] [address] [id number] [address] [place] [address] Jul, [facility] [address] [id number] [address] [place] [address] Jun, [facility] [address] [id number] [address] [place] [address] May, [facility] [address] [facility] [place] [id number] [address] [place] [address] May, ADHD, predominantly inattent randall type F90.0 and Major depressive disorder, recurrent episode, in full remission F33.42 [facility] [address] [id number] [address] [place] [address] Feb, Major depressive disorder, r ecurrent episode, moderate 296.32 [facility] [address] [id number] [address] [place] [address] Feb, [facility] [address] [id number] [address] [place] [address] Jan, [facility] [address] [id number] [address] [place] [address] Jan, [facility] [address] [facility] [place] [id number] [address] [place] [address] December, [facility] [address] [id number] [address] [place] [address] Nov, [facility] [address] [facility] [place] [id number] [address] [place] [address] Nov, [facility] [address] [id number] [address] [place] [address], [place] [address] Oct, [facility] [address] [id number] [address] [place] [address], [place] [address] Oct, [facility] [address] [id number] [address] [place] [address], [place] [address] Sep, [facility] [address] [id number] [address] [place] [address], [place] [address] Sep, [facility] [address] [id number] [address] [place] [address], [place] [address] Sep, [facility] [address] [id number] [address] [place] [address], [place] [address] Sep, [facility] [address] [id number] [address] [place] [address], [place] [address] Aug, [facility] [address] [id number] [address] [place] [address], [place] [address] Aug, [facility] [address] [id number] [address] [place] [address], [place] [address] Aug, [facility] [address] [id number] [address] [place] [address], [place] [address] Aug, [facility] [address] [id number] [address] [place] [address], [place] [address] Aug, [facility] [address] [id number] [address] [place] [address], [place] [address] Aug, [facility] [address] [id number] [address] [place] [address], [place] [address] Jul, [facility] [address] [id number] [address] [place] [address], [place] [address] Jul, [facility] [address] [id number] [address] [place] [address], [place] [address] Jun, [facility] [address] [id number] [address] [place] [address], [place] [address] Jun, [facility] [address] [id number] [address] [place] [address], [place] [address] May, [facility] [address] [id number] [address] [place] [address], [place] [address] May, [facility] [address] [id number] [address] [place] [address], [place] [address] Apr, [facility] [address] [id number] [address] [place] [address], [place] [address] Apr, [facility] [address] [id number] [address] [place] [address], [place] [address] Apr, [facility] [address] [id number] [address] [place] [address], [place] [address] Mar, [facility] [address] [id number] [address] [place] [address], [place] [address] Mar, [facility] [address] [id number] [address] [place] [address], [place] [address] Mar, [facility] [address] [id number] [address] [place] [address], [place] [address] Mar, [facility] [address] [id number] [address] [place] [address], [place] [address] Feb, [facility] [address] [id number] [address] [place] [address], [place] [address] Feb, [facility] [address] [id number] [address] [place] [address], [place] [address] Feb, [facility] [address] [id number] [address] [place] [address], [place] [address] Feb, [facility] [address] [id number] [address] [place] [address], [place] [address] Feb, [facility] [address] [id number] [address] [place] [address], [place] [address] Feb, [facility] [address] [id number] [address] [place] [address], [place] [address] Jan, [facility] [address] [id number] [address] [place] [address], [place] [address] Jan, [facility] [address] [id number] [address] [place] [address], [place] [address] Jan, [facility] [address] [id number] [address] [place] [address], [place] [address] Jan, [facility] [address] [id number] [address] [place] [address], [place] [address] December, [facility] [address] [id number] [address] [place] [address], [place] [address] December, [facility] [address] [id number] [address] [place] [address], [place] [address] December, [facility] [address] [id number] [address] [place] [address], [place] [address] December, [facility] [address] [id number] [address] [place] [address], [place] [address] December, [facility] [address] [id number] [address] [place] [address], [place] [address] December, [facility] [address] [id number] [address] [place] [address], [place] [address] December, [facility] [address] [id number] [address] [place] [address], [place] [address] December, [facility] [address] [id number] [address] [place] [address], [place] [address] December, [facility] [address] [id number] [address] [place] [address], [place] [address] December, [facility] [address] [id number] [address] [place] [address], [place] [address] Nov, [facility] [address] [id number] [address] [place] [address], [place] [address] 16 Nov, 2013 [facility] [address] [id number] [address] [place] [address], [place] [address] Oct, [facility] [address] [id number] [address] [place] [address], [place] [address] Oct, [facility] [address] [id number] [address] [place] [address], [place] [address] Oct, [facility] [address] [id number] [address] [place] [address], [place] [address] Oct, [facility] [address] [id number] [address] [place] [address], [place] [address] Oct, [facility] [address] [id number] [address] [place] [address], [place] [address] Oct, [facility] [address] [id number] [address] [place] [address], [place] [address] Aug, [facility] [address] [id number] [address] [place] [address], [place] [address] Aug, [facility] [address] [id number] [address] [place] [address], [place] [address] Aug, [facility] [address] [id number] [address] [place] [address], [place] [address] Aug, [facility] [address] [id number] [address] [place] [address], [place] [address] Aug, [facility] [address] [id number] [address] [place] [address], [place] [address] Aug, [facility] [address] [id number] [address] [place] [address], [place] [address] Aug, [facility] [address] [id number] [address] [place] [address], [place] [address] Aug, [facility] [address] [id number] [address] [place] [address], [place] [address] Jul, [facility] [address] [id number] [address] [place] [address], [place] [address] Jul, [facility] [address] [id number] [address] [place] [address], [place] [address] Jun, [facility] [address] [id number] [address] [place] [address], [place] [address] Jun, [facility] [address] [id number] [address] [place] [address], [place] [address] Jun, [facility] [address] [id number] [address] [place] [address], [place] [address] Jun, [facility] [address] [id number] [address] [place] [address], [place] [address] Jun, [facility] [address] [id number] [address] [place] [address], [place] [address] Jun, [facility] [address] [id number] [address] [place] [address], [place] [address] May, [facility] [address] [id number] [address] [place] [address], [place] [address] May, [facility] [address] [id number] [address] [place] [address], [place] [address] Apr, [facility] [address] [id number] [address] [place] [address], [place] [address] Apr, [facility] [address] [id number] [address] [place] [address], [place] [address] Mar, [facility] [address] [id number] [address] [place] [address], [place] [address] Mar, [facility] [address] [id number] [address] [place] [address], [place] [address] Mar, [facility] [address] [id number] [address] [place] [address], [place] [address] Feb, [facility] [address] [id number] [address] [place] [address], [place] [address] Jan, [facility] [address] [id number] [address] [place] [address], [place] [address] December, [facility] [address] [id number] [address] [place] [address], [place] [address] December, [facility] [address] [id number] [address] [place] [address], [place] [address] December, [facility] [address] [id number] [address] [place] [address], [place] [address] December, [facility] [address] [id number] [address] [place] [address], [place] [address] December, [facility] [address] [id number] [address] [place] [address], [place] [address] December, [facility] [address] [id number] [address] [place] [address], [place] [address] Nov, [facility] [address] [id number] [address] [place] [address], [place] [address] Nov, [facility] [address] [id number] [address] [place] [address], [place] [address] 08 Nov, 2012 [facility] [address] [id number] [address] [place] [address], [place] [address] 05 Oct, 2012 [facility] [address] [id number] [address] [place] [address], [place] [address] 14 Jun, 2012 [facility] [address] [id number] [address] [place] [address], [place] [address] 14 Jun, 2012 [facility] [address] [id number] [address] [place] [address], [place] [address] Jun, [facility] [address] [id number] [address] [place] [address], [place] [address] Jun, [facility] [address] [id number] [address] [place] [address], [place] [address] 18 Apr, 2012 [facility] [address] [id number] [address] [place] [address] Mar, [facility] [address] [id number] [address] [place] [address] Mar, [facility] [address] [id number] [address] [place] [address] Jan, [facility] [address] [id number] [address] [place] [address] December, [facility] [address] [id number] [address] [place] [id number] Nov, [facility] [address] [id number] [address] [place] [id number] Nov, [facility] [address] [id number] [address] [place] [id number] Nov, [facility] [address] [id number] [address] [place] [id number] Nov, [facility] [address] [id number] [address] [place] [id number] Aug, [facility] [address] [id number] [address] [place] [id number] Aug, [facility] [address] [id number] [address] [place] [id number] Jul, [facility] [address] [id number] [address] [place] [phone] Jun, [facility] [address] [id number] [address] [place] [id number] Jun, [facility] [address] [id number] [address] [place] [id number] Apr, [facility] [address] [id number] [address] [place] [id number] Feb, IMMUNIZATIONS No Known Immunizations SOCIAL HISTORY Never Assessed REASON FOR VISIT Controlled Med Refill PLAN OF CARE VITAL SIGNS MEDICATIONS Medication Instructions Dosage Frequency Start Date End Date Duration S dante Raymundoien 10 mg Orally Once a day 1 tablet at bedtime as needed 24h Jul, 28 days Active RESULTS No Results PROCEDURES No Known procedures INSTRUCTIONS MEDICATIONS ADMINISTERED No Known Medications MEDICAL (GENERAL) HISTORY Type Description Date Medical History Hypertension Medical History ADHD Medical History depression Medical History anxiety Surgical History section Surgical History collar bone repair
--- OUTSIDE RECORDS SUMMARY | 2020-02-11 01:37 | XMS REPORT ---
Author Author Elaine GALARZA Organization [facility] Address [address] [place] [address] Care Team Providers Care Handy Worker Name Role Phone MARI GALARZA Unavailable PROBLEMS Type Condition ICD9-CM Code YTT75-PT Code Onset Dates Condition S tatus SNOMED Code Problem Seasonal allergies J30.2 Active 4 00605118 Problem Essential hypertension I10 Active 34699448 Problem Major depressive disorder, recurrent episode, in full remission F33.42 Active 123337370 Problem Primary insomnia F51.01 Active 397 2004 Problem ADHD, predominantly inattentive type F90.0 Active [id number] ALLERGIES No Information ENCOUNTERS Encounter Location Date Diagnosis [facility] [id number] [address] [place] [address] Jan, ADHD, predominantly inattent randall type F90.0 and Primary insomnia F51.01 [facility] [id number] [place] [address] December, Seasonal allergies J30.2 and Post-nasal drip R09.82 [facility] [address] [id number] [address] [place] [address] December, ADHD, predominantly inattent randall type F90.0 and Primary insomnia F51.01 [facility] [address] [id number] [address] [place] [address] Nov, ADHD, predominantly inattent randall type F90.0 [facility] [address] [id number] [address] [place] [address] Oct, ADHD, predominantly inattent randall type F90.0 [facility] [address] [id number] [address] [place] [address] Oct, ADHD, predominantly inattent randall type F90.0 ; Primary insomnia F51.01 and Screening, lipid Z13.220 [facility] [address] [id number] [address] [place] [address] Sep, ADHD, predominantly inattent randall type F90.0 [facility] [address] [id number] [address] [place] [address] Aug, ADHD, predominantly inattent randall type F90.0 and Primary insomnia F51.01 [facility] [address] [id number] [address] [place] [address] Jul, ADHD, predominantly inattent randall type F90.0 [place] [address] [facility] [id number] [address] [place] [address] Jul, Primary insomnia F51.01 and ADHD, predominantly inattentive type F90.0 [place] [address] [id number] [address] [place] [address] Jun, ADHD, predominantly inattent randall type F90.0 [place] [id number] [id number] [address] [place] [address] May, ADHD, predominantly inattent randall type F90.0 [facility] [address] [id number] [address] [place] [address] Apr, ADHD, predominantly inattent randall type F90.0 [place] [address] [facility] [id number] [address] [place] [address] Mar, ADHD, predominantly inattent randall type F90.0 ; Primary insomnia F51.01 ; Major depressive disorder, recurrent episode, in full remission F33.42 and Acne comedone L70.0 [facility] [address] [facility] [id number] [address] [place] [address] Mar, Major depressive disorder, r ecurrent episode, in full remission F33.42 and ADHD, predominantly inattentive type F90.0 [place] [id number] [facility] [id number] [address] [place] [address] Feb, ADHD, predominantly inattent randall type F90.0 [place] [address] [facility] [id number] [address] [place] [address] Feb, Primary insomnia F51.01 [facility] [address] [facility] [id number] [address] [place] [address] Jan, ADHD, predominantly inattent randall type F90.0 and Primary insomnia F51.01 [facility] [address] [facility] [id number] [address] [place] [address] December, ADHD, predominantly inattent randall type F90.0 and Primary insomnia F51.01 [place] [address] [facility] [id number] [address] [place] [address] Oct, ADHD, predominantly inattent randall type F90.0 and Primary insomnia F51.01 [facility] [address] [id number] [address] [place] [address] Sep, ADHD, predominantly inattent randall type F90.0 and Primary insomnia F51.01 [facility] [address] [facility] [id number] [address] [place] [address] Aug, ADHD, predominantly inattent randall type F90.0 and Primary insomnia F51.01 [facility] [address] [id number] [address] [place] [address] Jul, Major depressive disorder, r ecurrent episode, in full remission F33.42 ; ADHD, predominantly inattentive type F90.0 ; Primary insomnia F51.01 ; Acute non-recurrent maxillary sinusitis J01.00 and Screening, lipid Z13.220 [facility] [address] [facility] [id number] [address] [place] [address] Jun, Acute non-recurrent maxillar y sinusitis J01.00 [facility] [address] [facility] [id number] [address] [place] [address] Jun, ADHD, predominantly inattent randall type F90.0 [facility] [address] [id number] [address] [place] [address] May, [facility] [address] [id number] [address] [place] [address] Apr, [facility] [address] [id number] [address] [place] [address] Feb, Rash R21 and Scabies B86 [facility] [address] [id number] [address] [place] [address] Feb, ADHD, predominantly inattent randall type F90.0 and Major depressive disorder, recurrent episode, in full remission F33.42 [facility] [address] [id number] [address] [place] [address] Feb, [facility] [address] [id number] [address] [place] [address] Oct, [facility] [address] [id number] [address] [place] [address] Sep, [facility] [address] [id number] [address] [place] [address] Sep, [facility] [address] [id number] [address] [place] [address] Aug, [facility] [address] [id number] [address] [place] [address] Jul, [facility] [address] [id number] [address] [place] [address] Jun, [facility] [address] [id number] [address] [place] [address] May, [facility] [address] [id number] [address] [place] [address] May, ADHD, predominantly inattent randall type F90.0 and Major depressive disorder, recurrent episode, in full remission F33.42 [facility] [address] [id number] [address] [place] [address] Feb, Major depressive disorder, r ecurrent episode, moderate 296.32 [facility] [address] [id number] [address] [place] [address] Feb, [facility] [address] [id number] [address] [place] [address] Jan, [facility] [address] [id number] [address] [place] [address] Jan, [facility] [address] [id number] [address] [place] [address] December, [facility] [address] [id number] [address] [place] [address] Nov, [facility] [address] [id number] [address] [place] [address] Nov, [facility] [address] [id number] [address] [place] [address] Oct, [facility] [address] [id number] [address] [place] [address] Oct, [facility] [address] [id number] [address] [place] [address] Sep, [facility] [address] [id number] [address] [place] [address] Sep, [facility] [address] [id number] [address] [place] [address] Sep, [facility] [address] [id number] [address] [place] [address] Sep, [facility] [address] [id number] [address] [place] [address] Aug, [facility] [address] [id number] [address] [place] [address] Aug, [facility] [address] [id number] [address] [place] [address] Aug, [facility] [address] [id number] [address] [place] [address], [place] [address] Aug, [facility] [address] [id number] [address] [place] [address], [place] [address] Aug, [facility] [address] [id number] [address] [place] [address], [place] [address] Aug, [facility] [address] [id number] [address] [place] [address], [place] [address] Jul, [facility] [address] [id number] [address] [place] [address], [place] [address] Jul, [facility] [address] [id number] [address] [place] [address], [place] [address] Jun, [facility] [address] [id number] [address] [place] [address], [place] [address] Jun, [facility] [address] [id number] [address] [place] [address], [place] [address] May, [facility] [address] [id number] [address] [place] [address], [place] [address] May, [facility] [address] [id number] [address] [place] [address], [place] [address] Apr, [facility] [address] [id number] [address] [place] [address], [place] [address] Apr, [facility] [address] [id number] [address] [place] [address], [place] [address] Apr, [facility] [address] [id number] [address] [place] [address], [place] [address] Mar, [facility] [address] [id number] [address] [place] [address], [place] [address] Mar, [facility] [address] [id number] [address] [place] [address], [place] [address] Mar, [facility] [address] [id number] [address] [place] [address], [place] [address] Mar, [facility] [address] [id number] [facility] [place] [address] Feb, [facility] [address] [id number] [address] [place] [address], [place] [address] Feb, [facility] [address] [id number] [address] [place] [address], [place] [address] Feb, [facility] [address] [id number] [address] [place] [address], [place] [address] Feb, [facility] [address] [id number] [address] [place] [address], [place] [address] Feb, [facility] [address] [id number] [address] [place] [address], [place] [address] Feb, [facility] [address] [id number] [address] [place] [address], [place] [address] Jan, [facility] [address] [id number] [address] [place] [address], [place] [address] Jan, [facility] [address] [id number] [address] [place] [address], [place] [address] Jan, [facility] [address] [id number] [address] [place] [address], [place] [address] Jan, [facility] [address] [id number] [address] [place] [address], [place] [address] December, [facility] [address] [id number] [address] [place] [address], [place] [address] December, [facility] [address] [id number] [address] [place] [address], [place] [address] December, [facility] [address] [id number] [address] [place] [address], [place] [address] December, [facility] [address] [id number] [address] [place] [address], [place] [address] December, [facility] [address] [id number] [facility] [place] [address] December, [facility] [address] [id number] [facility] [place] [address] December, [facility] [address] [id number] [facility] [place] [address] December, [facility] [address] [id number] [address] [place] [address], [place] [address] December, [facility] [address] [id number] [address] [place] [address], [place] [address] December, [facility] [address] [id number] [address] [place] [address], [place] [address] Nov, [facility] [address] [id number] [address] [place] [address], [place] [address] Nov, [facility] [address] [id number] [address] [place] [address], [place] [address] Oct, [facility] [address] [id number] [address] [place] [address], [place] [address] Oct, [facility] [address] [id number] [address] [place] [address], [place] [address] Oct, [facility] [address] [id number] [address] [place] [address], [place] [address] Oct, [facility] [address] [id number] [address] [place] [address], [place] [address] Oct, [facility] [address] [id number] [address] [place] [address], [place] [address] Oct, [facility] [address] [id number] [address] [place] [address], [place] [address] Aug, [facility] [address] [id number] [address] [place] [address], [place] [address] Aug, [facility] [address] [id number] [address] [place] [address], [place] [address] Aug, [facility] [address] [id number] [address] [place] [address], [place] [address] Aug, [facility] [address] [id number] [address] [place] [address], [place] [address] Aug, [facility] [address] [id number] [address] [place] [address], [place] [address] Aug, [facility] [address] [id number] [address] [place] [address], [place] [address] Aug, [facility] [address] [id number] [address] [place] [address], [place] [address] Aug, [facility] [address] [id number] [address] [place] [address], [place] [address] Jul, [facility] [address] [id number] [address] [place] [address], [place] [address] Jul, [facility] [address] [id number] [address] [place] [address], [place] [address] Jun, [facility] [address] [id number] [address] [place] [address], [place] [address] Jun, [facility] [address] [id number] [address] [place] [address], [place] [address] Jun, [facility] [address] [id number] [address] [place] [address] Jun, [facility] [address] [id number] [address] [place] [address] Jun, [facility] [address] [id number] [address] [place] [address], [place] [address] Jun, [facility] [address] [id number] [address] [place] [address] May, [facility] [address] [id number] [address] [place] [address] May, [facility] [address] [id number] [address] [place] [address], [place] [address] 16 Apr, 2013 [facility] [address] [id number] [address] [place] [address], [place] [address] Apr, [facility] [address] [id number] [address] [place] [address], [place] [address] Mar, [facility] [address] [id number] [address] [place] [address], [place] [address] Mar, [facility] [address] [id number] [address] [place] [address], [place] [address] Mar, [facility] [address] [id number] [address] [place] [address], [place] [address] Feb, [facility] [address] [id number] [address] [place] [address], [place] [address] Jan, [facility] [address] [id number] [address] [place] [address], [place] [address] December, [facility] [address] [id number] [address] [place] [address], [place] [address] December, [facility] [address] [id number] [address] [place] [address], [place] [address] December, [facility] [address] [id number] [address] [place] [address], [place] [address] December, [facility] [address] [id number] [address] [place] [address], [place] [address] December, [facility] [address] [id number] [address] [place] [address], [place] [address] December, [facility] [address] [id number] [address] [place] [address], [place] [address] 18 Nov, 2012 [facility] [address] [id number] [address] [place] [address], [place] [address] Nov, [facility] [address] [id number] [address] [place] [address], [place] [address] Nov, [facility] [address] [id number] [address] [place] [address], [place] [address] 05 Oct, 2012 [facility] [address] [id number] [address] [place] [address], [place] [address] 14 Jun, 2012 [facility] [address] [id number] [address] [place] [address], [place] [address] 14 Jun, 2012 [facility] [address] [id number] [address] [place] [address], [place] [address] Jun, [facility] [address] [id number] [address] [place] [address], [place] [address] Jun, [facility] [address] [id number] [address] [place] [address], [place] [address] 18 Apr, 2012 [facility] [address] [id number] [address] [place] [address], [place] [address] Mar, [facility] [address] [id number] [address] [place] [address], [place] [address] Mar, [facility] [address] [id number] [address] [place] [address], [place] [address] Jan, [facility] [address] [id number] [address] [place] [address], [place] [address] December, [facility] [address] [id number] [address] [place] [address], [place] [address] 16 Nov, 2011 [facility] [address] [id number] [address] [place] [address], [place] [address] Nov, [facility] [address] [id number] [address] [place] [address], [place] [address] Nov, [facility] [address] [id number] [address] [place] [address], [place] [address] Nov, [facility] [address] [id number] [address] [place] [address], [place] [address] Aug, [facility] [address] [id number] [address] [place] [id number] Aug, [facility] [address] [facility] [id number] [address] [place] [id number] Jul, [facility] [address] [facility] [id number] [address] [place] [id number] Jun, [facility] [address] [facility] [id number] [address] [place] [id number] Jun, [facility] [address] [facility] [id number] [address] [place] [id number] Apr, [facility] [address] [facility] [id number] [address] [place] [id number] Feb, IMMUNIZATIONS No Known Immunizations SOCIAL HISTORY Never Assessed REASON FOR VISIT rx resend PLAN OF CARE VITAL SIGNS MEDICATIONS Medication [...]
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
--- OUTSIDE RECORDS SUMMARY | 2020-02-11 01:38 | XMS REPORT ---
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
--- OUTSIDE RECORDS SUMMARY | 2020-02-11 01:38 | XMS REPORT ---
Author Author Elaine GALARZA Organization [facility] Address [address] [place] [address] Care Team Providers Care Photo Stylist Name Role Phone MARI GALARZA Unavailable PROBLEMS Type Condition ICD9-CM Code BIE38-ID Code Onset Dates Condition S tatus SNOMED Code Problem Essential hypertension I10 Active 90266862 Problem Primary insomnia F51.01 Active 397 2004 Problem ADHD, predominantly inattentive type F90.0 Active 04964178 Problem Major depressive disorder, recurrent episode, in full remission F33.42 Active [id number] ALLERGIES No Information ENCOUNTERS Encounter Location Date Diagnosis [place] [address] [place] [id number] [place] [id number] Oct, ADHD, predominantly inattent randall type F90.0 [place] [address] [place] [id number] [address] [place] [phone] Oct, ADHD, predominantly inattent randall type F90.0 ; Primary insomnia F51.01 and Screening, lipid Z13.220 [place] [address] [place] [id number] [address] [place] [phone] Sep, ADHD, predominantly inattent randall type F90.0 [place] [address] [place] [id number] [address] [place] [phone] Aug, ADHD, predominantly inattent randall type F90.0 and Primary insomnia F51.01 [place] [address] [place] [id number] [address] [place] [address] Jul, ADHD, predominantly inattent randall type F90.0 [place] [address] [place] [id number] [address] [place] [phone] Jul, Primary insomnia F51.01 and ADHD, predominantly inattentive type F90.0 [facility] [address] [id number] [address] [place] [phone] Jun, ADHD, predominantly inattent randall type F90.0 [facility] [address] [id number] [address] [place] [id number] May, ADHD, predominantly inattent randall type F90.0 [facility] [address] [id number] [address] [place] [phone] Apr, ADHD, predominantly inattent randall type F90.0 [facility] [address] [id number] [address] [place] [phone] Mar, ADHD, predominantly inattent randall type F90.0 ; Primary insomnia F51.01 ; Major depressive disorder, recurrent episode, in full remission F33.42 and Acne comedone L70.0 [facility] [address] [id number] [address] [place] [address] Mar, Major depressive disorder, r ecurrent episode, in full remission F33.42 and ADHD, predominantly inattentive type F90.0 [facility] [address] [id number] [address] [place] [id number] Feb, ADHD, predominantly inattent randall type F90.0 [facility] [address] [facility] [id number] [address] [place] [id number] Feb, Primary insomnia F51.01 [facility] [address] [facility] [id number] [address] [place] [phone] Jan, ADHD, predominantly inattent randall type F90.0 and Primary insomnia F51.01 [facility] [address] [facility] [id number] [address] [place] [phone] December, ADHD, predominantly inattent randall type F90.0 and Primary insomnia F51.01 [facility] [address] [facility] [id number] [address] [place] [phone] Oct, ADHD, predominantly inattent randall type F90.0 and Primary insomnia F51.01 [facility] [address] [id number] [address] [place] [phone] Sep, ADHD, predominantly inattent randall type F90.0 and Primary insomnia F51.01 [facility] [address] [id number] [address] [place] [phone] Aug, ADHD, predominantly inattent randall type F90.0 and Primary insomnia F51.01 [facility] [address] [id number] [address] [place] [address] Jul, Major depressive disorder, r ecurrent episode, in full remission F33.42 ; ADHD, predominantly inattentive type F90.0 ; Primary insomnia F51.01 ; Acute non-recurrent maxillary sinusitis J01.00 and Screening, lipid Z13.220 [facility] [address] [id number] [address] [place] [id number] Jun, Acute non-recurrent maxillar y sinusitis J01.00 [facility] [address] [id number] [address] [place] [phone] Jun, ADHD, predominantly inattent randall type F90.0 [facility] [address] [id number] [address] [place] [phone] May, [facility] [address] [facility] [id number] [address] [place] [phone] Apr, [facility] [address] [id number] [address] [place] [phone] Feb, Rash R21 and Scabies B86 [facility] [address] [id number] [address] [place] [id number] Feb, ADHD, predominantly inattent randall type F90.0 and Major depressive disorder, recurrent episode, in full remission F33.42 [facility] [address] [id number] [address] [place] [id number] Feb, [facility] [address] [id number] [address] [place] [phone] Oct, [facility] [address] [id number] [address] [place] [phone] Sep, [facility] [address] [id number] [address] [place] [id number] Sep, [facility] [address] [id number] [address] [place] [phone] Aug, [facility] [address] [id number] [address] [place] [phone] Jul, [facility] [address] [id number] [address] [place] [phone] Jun, [facility] [address] [id number] [address] [place] [phone] May, [facility] [address] [facility] [id number] [address] [place] [phone] May, ADHD, predominantly inattent randall type F90.0 and Major depressive disorder, recurrent episode, in full remission F33.42 [facility] [address] [id number] [address] [place] [id number] Feb, Major depressive disorder, r ecurrent episode, moderate 296.32 [facility] [address] [id number] [address] [place] [phone] Feb, [facility] [address] [id number] [address] [place] [phone] Jan, [facility] [address] [id number] [address] [place] [phone] Jan, [facility] [address] [facility] [id number] [address] [place] [phone] December, [facility] [address] [id number] [address] [place] [phone] Nov, [facility] [address] [facility] [id number] [address] [place] [phone] Nov, [facility] [address] [id number] [address] [place] [address], [place] [address] Oct, [facility] [address] [id number] [address] [place] [address], [place] [address] Oct, [facility] [address] [id number] [address] [place] [address], [place] [address] Sep, [facility] [address] [id number] [address] [place] [address], [place] [address] Sep, [facility] [address] [id number] [address] [place] [address], [place] [address] Sep, [facility] [address] [id number] [address] [place] [address], [place] [address] Sep, [facility] [address] [id number] [address] [place] [address], [place] [address] Aug, [facility] [address] [id number] [address] [place] [address], [place] [address] Aug, [facility] [address] [id number] [address] [place] [address], [place] [address] Aug, [facility] [address] [id number] [address] [place] [address], [place] [address] Aug, [facility] [address] [id number] [address] [place] [address], [place] [address] Aug, [facility] [address] [id number] [address] [place] [address], [place] [address] Aug, [facility] [address] [id number] [address] [place] [address], [place] [address] Jul, [facility] [address] [id number] [address] [place] [address], [place] [address] Jul, [facility] [address] [id number] [address] [place] [address], [place] [address] Jun, [facility] [address] [id number] [address] [place] [address], [place] [address] Jun, [facility] [address] [id number] [address] [place] [address], [place] [address] May, [facility] [address] [id number] [address] [place] [address], [place] [address] May, [facility] [address] [id number] [address] [place] [address], [place] [address] Apr, [facility] [address] [id number] [address] [place] [address], [place] [address] Apr, [facility] [address] [id number] [address] [place] [address], [place] [address] Apr, [facility] [address] [id number] [address] [place] [address], [place] [address] Mar, [facility] [address] [id number] [address] [place] [address], [place] [address] Mar, [facility] [address] [id number] [address] [place] [address], [place] [address] Mar, [facility] [address] [id number] [address] [place] [address], [place] [address] Mar, [facility] [address] [id number] [address] [place] [address], [place] [address] Feb, [facility] [address] [id number] [address] [place] [address], [place] [address] Feb, [facility] [address] [id number] [address] [place] [address], [place] [address] Feb, [facility] [address] [id number] [address] [place] [address], [place] [address] Feb, [facility] [address] [id number] [address] [place] [address], [place] [address] Feb, [facility] [address] [id number] [address] [place] [address], [place] [address] Feb, [facility] [address] [id number] [address] [place] [address], [place] [address] Jan, [facility] [address] [id number] [address] [place] [address], [place] [address] Jan, [facility] [address] [id number] [address] [place] [address], [place] [address] Jan, [facility] [address] [id number] [address] [place] [address], [place] [address] Jan, [facility] [address] [id number] [address] [place] [address], [place] [address] December, [facility] [address] [id number] [address] [place] [address], [place] [address] December, [facility] [address] [id number] [address] [place] [address], [place] [address] December, [facility] [address] [id number] [address] [place] [address], [place] [address] December, [facility] [address] [id number] [address] [place] [address], [place] [address] December, [facility] [address] [id number] [address] [place] [address], [place] [address] December, [facility] [address] [id number] [address] [place] [address], [place] [address] December, [facility] [address] [id number] [address] [place] [address], [place] [address] December, [facility] [address] [id number] [address] [place] [address], [place] [address] December, [facility] [address] [id number] [address] [place] [address], [place] [address] December, [facility] [address] [id number] [address] [place] [address], [place] [address] Nov, [facility] [address] [id number] [address] [place] [address], [place] [address] 16 Nov, 2013 [facility] [address] [id number] [address] [place] [address], [place] [address] Oct, [facility] [address] [id number] [address] [place] [address], [place] [address] Oct, [facility] [address] [id number] [address] [place] [address], [place] [address] Oct, [facility] [address] [id number] [address] [place] [address], [place] [address] Oct, [facility] [address] [id number] [address] [place] [address], [place] [address] Oct, [facility] [address] [id number] [address] [place] [address], [place] [address] Oct, [facility] [address] [id number] [address] [place] [address], [place] [address] Aug, [facility] [address] [id number] [address] [place] [address], [place] [address] Aug, [facility] [address] [id number] [address] [place] [address], [place] [address] Aug, [facility] [address] [id number] [address] [place] [address], [place] [address] Aug, [facility] [address] [id number] [address] [place] [address], [place] [address] Aug, [facility] [address] [id number] [address] [place] [address], [place] [address] Aug, [facility] [address] [id number] [address] [place] [address], [place] [address] Aug, [facility] [address] [id number] [address] [place] [address], [place] [address] Aug, [facility] [address] [id number] [address] [place] [address], [place] [address] Jul, [facility] [address] [id number] [address] [place] [address], [place] [address] Jul, [facility] [address] [id number] [address] [place] [address], [place] [address] Jun, [facility] [address] [id number] [address] [place] [address], [place] [address] Jun, [facility] [address] [id number] [address] [place] [address], [place] [address] Jun, [facility] [address] [id number] [address] [place] [address], [place] [address] Jun, [facility] [address] [id number] [address] [place] [address], [place] [address] Jun, [facility] [address] [id number] [address] [place] [address], [place] [address] Jun, [facility] [address] [id number] [address] [place] [address], [place] [address] May, [facility] [address] [id number] [address] [place] [address], [place] [address] May, [facility] [address] [id number] [address] [place] [address], [place] [address] Apr, [facility] [address] [id number] [address] [place] [address], [place] [address] Apr, [facility] [address] [id number] [address] [place] [address], [place] [address] Mar, [facility] [address] [id number] [address] [place] [address], [place] [address] Mar, [facility] [address] [id number] [address] [place] [address], [place] [address] Mar, [facility] [address] [id number] [address] [place] [address], [place] [address] Feb, [facility] [address] [id number] [address] [place] [address], [place] [address] Jan, [facility] [address] [id number] [address] [place] [address], [place] [address] December, [facility] [address] [id number] [address] [place] [address], [place] [address] December, [facility] [address] [id number] [address] [place] [address], [place] [address] December, [facility] [address] [id number] [address] [place] [address], [place] [address] December, [facility] [address] [id number] [address] [place] [address], [place] [address] December, [facility] [address] [id number] [address] [place] [address], [place] [address] December, [facility] [address] [id number] [address] [place] [address], [place] [address] Nov, [facility] [address] [id number] [address] [place] [address], [place] [address] Nov, [facility] [address] [id number] [address] [place] [address], [place] [address] 08 Nov, 2012 [facility] [address] [id number] [address] [place] [address], [place] [address] 05 Oct, 2012 [facility] [address] [id number] [address] [place] [address], [place] [address] 14 Jun, 2012 [facility] [address] [id number] [address] [place] [address], [place] [address] 14 Jun, 2012 [facility] [address] [id number] [address] [place] [address], [place] [address] Jun, [facility] [address] [id number] [address] [place] [address], [place] [address] Jun, [facility] [address] [id number] [address] [place] [address], [place] [address] 18 Apr, 2012 [facility] [address] [id number] [address] [place] [address] Mar, [facility] [address] [id number] [address] [place] [address] Mar, [facility] [address] [id number] [address] [place] [address] Jan, [facility] [address] [id number] [address] [place] [address] December, [facility] [address] [id number] [address] [place] [address] Nov, [facility] [address] [id number] [address] [place] [address] Nov, [facility] [address] [id number] [address] [place] [id number] Nov, [facility] [address] [id number] [address] [place] [address] Nov, [facility] [address] [id number] [address] [place] [address] Aug, [facility] [address] [id number] [address] [place] [address] Aug, [facility] [address] [id number] [address] [place] [address] Jul, [facility] [address] [id number] [address] [place] [address] Jun, [facility] [address] [id number] [address] [place] [id number] Jun, [facility] [address] [id number] [address] [place] [address] Apr, [facility] [address] [id number] [address] [place] [address] Feb, IMMUNIZATIONS No Known Immunizations SOCIAL HISTORY Never Assessed REASON FOR VISIT Controlled Med Refill PLAN OF CARE VITAL SIGNS MEDICATIONS Medication Instructions Dosage Frequency Start Date End Date Duration S tatus Adderall XR 20 mg Orally Once a day 2 capsules in the morning 24h Mar, 20 days Active Effexor XR 150 MG Orally Once a day 2 capsules 24h Aug, 20 days Active RESULTS No Results PROCEDURES No Known procedures INSTRUCTIONS MEDICATIONS ADMINISTERED No Known Medications MEDICAL (GENERAL) HISTORY Type Description Date Medical History Hypertension Medical History ADHD Medical History depression Medical History anxiety Surgical History section Surgical History collar bone repair
--- OUTSIDE RECORDS SUMMARY | 2020-02-11 01:38 | XMS REPORT ---
Author Author Elaine GALARZA [facility] Address [address] [place] [address] Care Team Providers Care Electrical Foreman Name Role Phone MARI GALARZA Unavailable PROBLEMS Type Condition ICD9-CM Code [id number] Code Onset Dates Condition S tatus SNOMED Code Problem Essential hypertension I10 Active 98272061 Problem Primary insomnia F51.01 Active 397 2004 Problem ADHD, predominantly inattentive type F90.0 Active 22583936 Problem Major depressive disorder, recurrent episode, in full remission F33.42 Active 347783704 ALLERGIES No Information SOCIAL HISTORY Never Assessed PLAN OF CARE VITAL SIGNS MEDICATIONS Medication Instructions Dosage Frequency Start Date End Date Duration S tatus Adderall XR 20 mg Orally Once a day 2 capsules in the morning 24h Sep, 28 days Active Ambien 10 mg Orally [...]
--- OUTSIDE RECORDS SUMMARY | 2020-02-11 01:38 | XMS REPORT ---
Author Author Elaine BASURTO Organization [facility] Address [address] [place] [address] Care Team Providers Care Snow Blower Name Role Phone TERESA BASURTO Unavailable PROBLEMS Type Condition ICD9-CM Code [id number] Code Onset Dates Condition S tatus SNOMED Code Problem Attention deficit disorder of childhood with hyperactivity 314.01 Active 626711817 Problem Lesion of plantar nerve 355.6 Active 608671414 Problem Calcaneal spur 726.73 Active 57874 003 Problem ADHD, predominantly inattentive type F90.0 Active 48062033 Problem Major depressive disorder, recurrent episode, in full remission F33.42 Active 843549554 Problem Anxiety state, unspecified 300.00 Act randall 242555426 Problem Plantar fascial fibromatosis 728.71 A ctive 43147778 Problem Essential hypertension, benign 401.1 Active 5056846 Problem Insomnia, unspecified 780.52 Active 345551387 Problem Unspecified essential hypertension 401.9 Active 13582208 Problem Disturbance of skin sensation 782.0 Active 514678397 Problem Generalized anxiety disorder 300.02 A ctive 85218241 Problem Attention deficit disorder o f childhood without mention of hyperactivity 314.00 Active 56501241 Problem Other bursitis disorders 727.3 Activ e 19167265 Problem Dysfunction of Eustachian tube 381.81 Active 96017252 Problem Carpal tunnel syndrome 354.0 Active 30502800 Problem Acute upper respiratory infections of unspecified site 465.9 Active 26323795 Problem Major depressive disorder, recurrent episode, moderate 296 .32 Active 61927625 ALLERGIES Unknown Allergies SOCIAL HISTORY No smoking Hx information available PLAN OF CARE VITAL SIGNS MEDICATIONS Medication Instructions Dosage Frequency Start Date End Date Duration S tatus Adderall XR 20 mg Orally. Needs appt . Once a day 2 capsule 24h Oct, Active RESULTS No Results PROCEDURES No Known procedures IMMUNIZATIONS No Known Immunizations
--- OUTSIDE RECORDS SUMMARY | 2020-02-11 01:38 | XMS REPORT ---
Author Author Elaine BASURTO [facility] eClinical[employer] Address Unknown Phone Unavailable Care Team Providers Care Technical Analyst Name Role Phone TERESA BASURTO CP Unavailable [...] Date End Date Status Dosage Adderall XR [facility] [address]-98 20 MG Orally Onc e a day in the morning for ADHD. Dr Knight to sign for [place] November 07, 2014 2 capsule Results No Known Results Summary Purpose eClinicalWorks Submission
--- OUTSIDE RECORDS SUMMARY | 2020-02-11 01:38 | XMS REPORT | Continuity of Care Document ---
Author Author [facility] Organization [facility] Address Unknown Phone Unavailable Care Team Providers Care Sewage Treatment Plant Operator Name Role Phone ADITYA CHAND DO PP Insurance Providers Payer Name Policy Number Subscriber Name Relationship [facility] [id number] Jessica Warner Self / Same As Patient Advance Directives Directive Response Recor ded Date Advance Directives N 7:15am Health Care Power of Dish Up Person N 01/19/13 7:15am Organ Donor N 01/19/13 7 :15am Problems No Known Problems or Medical conditions. Allergies, Adverse Reactions, Alerts Allergen Type Severity Reaction Last Updated No Known Drug Allergies 01/12/13 Medications Medication Dose Units Route Sig Qty Days Acetaminophen/Hydrocodone Bitart (Lortab 7.5 Mg) 1 - 2 Ea PO Q4 TO Q6HR PRN 28 Zolpidem Tartrate 10 Mg PO HS PRN Venlafaxine Hcl (Effexor Xr) 150 Mg PO DAILY HCTZ/Lisinopril (Lisinopril-Hctz 10-12.5 Mg Tab) 10 - 12.5 Mg PO DAILY Atenolol (Tenormin 50 Mg) 50 Mg PO DAILY Diclofenac Potassium (Cataflam) 50 Mg PO TID PRN Response Recorded Date/Time Status not known Unknown Results Test Date Result Interp. Ref. Range Basophils # (Auto) April 29, 2007 12:51pm 0.0 10^3/uL N 0.0-0.1 Basophils (%) (Auto) April 29, 2007 12:51pm 1 % N 0-10 Eosinophils # (Auto) April 29, 2007 12:51pm 0.3 10^3/uL N 0.0-0.3 Eosinophils (%) (Auto) April 29 12:51pm 4 % N 0-10 Hematocrit April 29, 2007 12:51pm 39 % N 35-52 Hemoglobin April 29, 2007 12:51pm 13.2 G/DL N 11.5-16.0 Lymphocytes # (Auto) April 29, 2007 12:51pm 2.3 X 10^3 N 1.0-4.0 Lymphocytes (%) (Auto) April 29 12:51pm 31 % N 12-44 Mean Corpuscular Hemoglobin April 012006 12:51pm 33 PG N 25-34 Mean Corpuscular Hemoglobin Concent April 29, 2007 12:51pm 34 G/DL N 32-36 Mean Corpuscular Volume April 29 12:51pm 96 FL N 80-99 Mean Platelet Volume April 29, 2007 12:51pm 10.0 FL N 7.4-10.4 Monocytes # (Auto) April 29, 2007 12:51pm 0.5 X 10^3 N 0.0-1.0 Monocytes (%) (Auto) April 29, 2007 12:51pm 7 % N 0-12 Neutrophils # (Auto) April 29, 2007 12:51pm 4.4 X 10^3 N 1.8-7.8 Neutrophils (%) (Auto) April 29 12:51pm 58 % N 42-75 Platelet Count April 29, 2007 12:51pm 323 10^3/uL N 130-400 Red Blood Count April 29, 2007 12:51pm 4.01 10^6/uL N 3.79-5.25 Red Cell Distribution Width April 012006 12:51pm 13.4 % N 10.0-14.5 Urine Test May 03 007 10:55am Negative - White Blood Count April 29, 2007 12:51pm 7.6 10^3/uL N 4.3-11.0 Procedures Procedure Code Date TREAT CLAVICLE FRACTURE [id number] 05/03/07 MRSA Screen 01/12/13 Encounters Encounter Location Date/ Time Departed Emergency Room [facility] 04/03/07 1:25pm
--- OUTSIDE RECORDS SUMMARY | 2020-02-11 01:38 | XMS REPORT ---
Author Author Elaine GALARZA [facility] Address [address] [place] [address] Care Team Providers Care Chief Librarian Branch Or Department Name Role Phone MARI GALARZA Unavailable PROBLEMS Type Condition ICD9-CM Code [id number] Code Onset Dates Condition S tatus SNOMED Code Problem Essential hypertension I10 Active 52123763 Problem Primary insomnia F51.01 Active 397 2004 Problem ADHD, predominantly inattentive type F90.0 Active 43951442 Problem Major depressive disorder, recurrent episode, in full remission F33.42 Active 110198610 ALLERGIES No Information SOCIAL HISTORY Never Assessed PLAN OF CARE VITAL SIGNS MEDICATIONS Medication Instructions Dosage Frequency Start Date End Date Duration S tatus Ambien 10 mg Orally Once a day 1 tablet at bedtime as needed 24h Jul, 28 days Active Adderall XR 20 mg Orally Once a day 2 capsules in the morning 24h December, 28 days Active RESULTS No Results PROCEDURES No Known procedures IMMUNIZATIONS No Known Immunizations MEDICAL (GENERAL) HISTORY Type Description Date Medical History Hypertension Medical History ADHD Medical History depression Medical History anxiety Surgical History section Surgical History collar bone repair
--- OUTSIDE RECORDS SUMMARY | 2020-02-11 01:38 | XMS REPORT ---
Author Author Elaine GALARZA Organization [employer] Address Unknown Phone Unavailable Care Team Providers Care Automatic Coin Machine Mechanic Name Role Phone MARI GALARZA CP Unavailable [...] Problem Unspecified essential hypertension 401.9 Active Assessment ADHD, predominantly inattentive type F90.0 [...] Date End Date Status Dosage Effexor XR [facility] [address]-55 150 MG Orally in the am Sep 27, 2014 2 capsule Adderall XR [facility] [address]-60 20 mg Orally Once a day November 07, 2014 2 capsules in the morning Results No Known Results Summary Purpose [employer] Submission
--- OUTSIDE RECORDS SUMMARY | 2020-02-11 01:38 | XMS REPORT ---
Author Author Elaine BASURTO [facility] [employer] Address Unknown Phone Unavailable Care Team Providers Care Pressure Welder Name Role Phone TERESA BASURTO CP Unavailable [...] Date End Date Status Dosage Adderall XR [facility] [address]-33 20 MG Orally Onc e a day in the morning for ADHD. Dr Knight to sign for [place] November 07, 2014 2 capsule Results No Known Results Summary Purpose [employer] Submission
--- OUTSIDE RECORDS SUMMARY | 2020-02-11 01:38 | XMS REPORT ---
Author Author Elaine GALARZA Organization [facility] Address [address] [place] [address] Care Team Providers Care Business Planning Analyst Name Role Phone MARI GALARZA Unavailable PROBLEMS Type Condition ICD9-CM Code [id number] Code Onset Dates Condition S tatus SNOMED Code Problem Essential hypertension I10 Active 88116190 Problem Primary insomnia F51.01 Active 397 2004 Problem ADHD, predominantly inattentive type F90.0 Active 48615951 Problem Major depressive disorder, recurrent episode, in full remission F33.42 Active [id number] ALLERGIES No Information ENCOUNTERS Encounter Location Date Diagnosis [place] [address] [place] [id number] [address] [place] [address] Oct, ADHD, predominantly inattent randall type F90.0 [place] [address] [place] [id number] [address] [place] [address] Oct, ADHD, predominantly inattent randall type F90.0 ; Primary insomnia F51.01 and Screening, lipid Z13.220 [place] [address] [place] [id number] [address] [place] [address] Sep, ADHD, predominantly inattent randall type F90.0 [place] [address] [place] [id number] [address] [place] [address] Aug, ADHD, predominantly inattent randall type F90.0 and Primary insomnia F51.01 [place] [address] [place] [id number] [address] [place] [address] Jul, ADHD, predominantly inattent randall type F90.0 [place] [address] [place] [id number] [address] [place] [address] Jul, Primary insomnia F51.01 and ADHD, predominantly inattentive type F90.0 [facility] [address] [id number] [address] [place] [address] Jun, ADHD, predominantly inattent randall type F90.0 [facility] [address] [id number] [address] [place] [address] May, ADHD, predominantly inattent randall type F90.0 [facility] [address] [id number] [address] [place] [address] Apr, ADHD, predominantly inattent randall type F90.0 [facility] [address] [id number] [address] [place] [address] Mar, ADHD, predominantly inattent randall type F90.0 ; Primary insomnia F51.01 ; Major depressive disorder, recurrent episode, in full remission F33.42 and Acne comedone L70.0 [facility] [address] [id number] [address] [place] [address] Mar, Major depressive disorder, r ecurrent episode, in full remission F33.42 and ADHD, predominantly inattentive type F90.0 [facility] [address] [id number] [address] [place] [address] Feb, ADHD, predominantly inattent randall type F90.0 [facility] [address] [facility] [id number] [address] [place] [address] Feb, Primary insomnia F51.01 [facility] [address] [facility] [id number] [address] [place] [address] Jan, ADHD, predominantly inattent randall type F90.0 and Primary insomnia F51.01 [facility] [address] [facility] [id number] [address] [place] [address] December, ADHD, predominantly inattent randall type F90.0 and Primary insomnia F51.01 [facility] [address] [facility] [id number] [address] [place] [address] Oct, ADHD, predominantly inattent randall type F90.0 and Primary insomnia F51.01 [facility] [address] [id number] [address] [place] [address] Sep, ADHD, predominantly inattent randall type F90.0 and Primary insomnia F51.01 [facility] [address] [id number] [address] [place] [address] Aug, ADHD, predominantly inattent randall type F90.0 and Primary insomnia F51.01 [facility] [address] [id number] [address] [place] [address] Jul, Major depressive disorder, r ecurrent episode, in full remission F33.42 ; ADHD, predominantly inattentive type F90.0 ; Primary insomnia F51.01 ; Acute non-recurrent maxillary sinusitis J01.00 and Screening, lipid Z13.220 [facility] [address] [id number] [address] [place] [address] Jun, Acute non-recurrent maxillar y sinusitis J01.00 [facility] [address] [id number] [address] [place] [address] Jun, ADHD, predominantly inattent randall type F90.0 [facility] [address] [id number] [address] [place] [address] May, [facility] [address] [facility] [id number] [address] [place] [address] Apr, [facility] [address] [id number] [address] [place] [address] Feb, Rash R21 and Scabies B86 [facility] [address] [id number] [address] [place] [address] Feb, ADHD, predominantly inattent randall type F90.0 and Major depressive disorder, recurrent episode, in full remission F33.42 [facility] [address] [id number] [address] [place] [address] Feb, [facility] [address] [id number] [address] [place] [address] Oct, [facility] [address] [id number] [address] [place] [address] Sep, [facility] [address] [id number] [address] [place] [address] Sep, [facility] [address] [id number] [address] [place] [address] Aug, [facility] [address] [id number] [address] [place] [address] Jul, [facility] [address] [id number] [address] [place] [address] Jun, [facility] [address] [id number] [address] [place] [address] May, [facility] [address] [facility] [id number] [address] [place] [address] May, ADHD, predominantly inattent randall type F90.0 and Major depressive disorder, recurrent episode, in full remission F33.42 [facility] [address] [id number] [address] [place] [address] Feb, Major depressive disorder, r ecurrent episode, moderate 296.32 [facility] [address] [id number] [address] [place] [address] Feb, [facility] [address] [id number] [address] [place] [address] Jan, [facility] [address] [id number] [address] [place] [address] Jan, [facility] [address] [facility] [id number] [address] [place] [address] December, [facility] [address] [id number] [address] [place] [address] Nov, [facility] [address] [facility] [id number] [address] [place] [address] Nov, [facility] [address] [id number] [address] [place] [address], [place] [address] Oct, [facility] [address] [id number] [address] [place] [address], [place] [address] Oct, [facility] [address] [id number] [address] [place] [address], [place] [address] Sep, [facility] [address] [id number] [address] [place] [address], [place] [address] Sep, [facility] [address] [id number] [address] [place] [address], [place] [address] Sep, [facility] [address] [id number] [address] [place] [address], [place] [address] Sep, [facility] [address] [id number] [address] [place] [address], [place] [address] Aug, [facility] [address] [id number] [address] [place] [address], [place] [address] Aug, [facility] [address] [id number] [address] [place] [address], [place] [address] Aug, [facility] [address] [id number] [address] [place] [address], [place] [address] Aug, [facility] [address] [id number] [address] [place] [address], [place] [address] Aug, [facility] [address] [id number] [address] [place] [address], [place] [address] Aug, [facility] [address] [id number] [address] [place] [address], [place] [address] Jul, [facility] [address] [id number] [address] [place] [address], [place] [address] Jul, [facility] [address] [id number] [address] [place] [address], [place] [address] Jun, [facility] [address] [id number] [address] [place] [address], [place] [address] Jun, [facility] [address] [id number] [address] [place] [address], [place] [address] May, [facility] [address] [id number] [address] [place] [address], [place] [address] May, [facility] [address] [id number] [address] [place] [address], [place] [address] Apr, [facility] [address] [id number] [address] [place] [address], [place] [address] Apr, [facility] [address] [id number] [address] [place] [address], [place] [address] Apr, [facility] [address] [id number] [address] [place] [address], [place] [address] Mar, [facility] [address] [id number] [address] [place] [address], [place] [address] Mar, [facility] [address] [id number] [address] [place] [address], [place] [address] Mar, [facility] [address] [id number] [address] [place] [address], [place] [address] Mar, [facility] [address] [id number] [address] [place] [address], [place] [address] Feb, [facility] [address] [id number] [address] [place] [address], [place] [address] Feb, [facility] [address] [id number] [address] [place] [address], [place] [address] Feb, [facility] [address] [id number] [address] [place] [address], [place] [address] Feb, [facility] [address] [id number] [address] [place] [address], [place] [address] Feb, [facility] [address] [id number] [address] [place] [address], [place] [address] Feb, [facility] [address] [id number] [address] [place] [address], [place] [address] Jan, [facility] [address] [id number] [address] [place] [address], [place] [address] Jan, [facility] [address] [id number] [address] [place] [address], [place] [address] Jan, [facility] [address] [id number] [address] [place] [address], [place] [address] Jan, [facility] [address] [id number] [address] [place] [address], [place] [address] December, [facility] [address] [id number] [address] [place] [address], [place] [address] December, [facility] [address] [id number] [address] [place] [address], [place] [address] December, [facility] [address] [id number] [address] [place] [address], [place] [address] December, [facility] [address] [id number] [address] [place] [address], [place] [address] December, [facility] [address] [id number] [address] [place] [address], [place] [address] December, [facility] [address] [id number] [address] [place] [address], [place] [address] December, [facility] [address] [id number] [address] [place] [address], [place] [address] December, [facility] [address] [id number] [address] [place] [address], [place] [address] December, [facility] [address] [id number] [address] [place] [address], [place] [address] December, [facility] [address] [id number] [address] [place] [address], [place] [address] Nov, [facility] [address] [id number] [address] [place] [address], [place] [address] 16 Nov, 2013 [facility] [address] [id number] [address] [place] [address], [place] [address] Oct, [facility] [address] [id number] [address] [place] [address], [place] [address] Oct, [facility] [address] [id number] [address] [place] [address], [place] [address] Oct, [facility] [address] [id number] [address] [place] [address], [place] [address] Oct, [facility] [address] [id number] [address] [place] [address], [place] [address] Oct, [facility] [address] [id number] [address] [place] [address], [place] [address] Oct, [facility] [address] [id number] [address] [place] [address], [place] [address] Aug, [facility] [address] [id number] [address] [place] [address], [place] [address] Aug, [facility] [address] [id number] [address] [place] [address], [place] [address] Aug, [facility] [address] [id number] [address] [place] [address], [place] [address] Aug, [facility] [address] [id number] [address] [place] [address], [place] [address] Aug, [facility] [address] [id number] [address] [place] [address], [place] [address] Aug, [facility] [address] [id number] [address] [place] [address], [place] [address] Aug, [facility] [address] [id number] [address] [place] [address], [place] [address] Aug, [facility] [address] [id number] [address] [place] [address], [place] [address] Jul, [facility] [address] [id number] [address] [place] [address], [place] [address] Jul, [facility] [address] [id number] [address] [place] [address], [place] [address] Jun, [facility] [address] [id number] [address] [place] [address], [place] [address] Jun, [facility] [address] [id number] [address] [place] [address], [place] [address] Jun, [facility] [address] [id number] [address] [place] [address], [place] [address] Jun, [facility] [address] [id number] [address] [place] [address], [place] [address] Jun, [facility] [address] [id number] [address] [place] [address], [place] [address] Jun, [facility] [address] [id number] [address] [place] [address], [place] [address] May, [facility] [address] [id number] [address] [place] [address], [place] [address] May, [facility] [address] [id number] [address] [place] [address], [place] [address] Apr, [facility] [address] [id number] [address] [place] [address], [place] [address] Apr, [facility] [address] [id number] [address] [place] [address], [place] [address] Mar, [facility] [address] [id number] [address] [place] [address], [place] [address] Mar, [facility] [address] [id number] [address] [place] [address], [place] [address] Mar, [facility] [address] [id number] [address] [place] [address], [place] [address] Feb, [facility] [address] [id number] [address] [place] [address], [place] [address] Jan, [facility] [address] [id number] [address] [place] [address], [place] [address] December, [facility] [address] [id number] [address] [place] [address], [place] [address] December, [facility] [address] [id number] [address] [place] [address], [place] [address] December, [facility] [address] [id number] [address] [place] [address], [place] [address] December, [facility] [address] [id number] [address] [place] [address], [place] [address] December, [facility] [address] [id number] [address] [place] [address], [place] [address] December, [facility] [address] [id number] [address] [place] [address], [place] [address] Nov, [facility] [address] [id number] [address] [place] [address], [place] [address] Nov, [facility] [address] [id number] [address] [place] [address], [place] [address] 08 Nov, 2012 [facility] [address] [id number] [address] [place] [address], [place] [address] 05 Oct, 2012 [facility] [address] [id number] [address] [place] [address], [place] [address] 14 Jun, 2012 [facility] [address] [id number] [address] [place] [address], [place] [address] 14 Jun, 2012 [facility] [address] [id number] [address] [place] [address], [place] [address] Jun, [facility] [address] [id number] [address] [place] [address], [place] [address] Jun, [facility] [address] [id number] [address] [place] [address], [place] [address] 18 Apr, 2012 [facility] [address] [id number] [address] [place] [address] Mar, [facility] [address] [id number] [address] [place] [address] Mar, [facility] [address] [id number] [address] [place] [address] Jan, [facility] [address] [id number] [address] [place] [address] December, [facility] [address] [id number] [address] [place] [address] Nov, [facility] [address] [id number] [address] [place] [address] Nov, [facility] [address] [id number] [address] [place] [address] Nov, [facility] [address] [id number] [address] [place] [address] Nov, [facility] [address] [id number] [address] [place] [address] Aug, [facility] [address] [id number] [address] [place] [address] Aug, [facility] [address] [id number] [address] [place] [address] Jul, [facility] [address] [id number] [address] [place] [address] Jun, [facility] [address] [id number] [address] [place] [address] Jun, [facility] [address] [id number] [address] [place] [address] Apr, [facility] [address] [id number] [address] [place] [address] Feb, IMMUNIZATIONS No Known Immunizations SOCIAL HISTORY Never Assessed REASON FOR VISIT Controlled Refill Request PLAN OF CARE VITAL SIGNS MEDICATIONS Unknown Medications RESULTS No Results PROCEDURES No Known procedures INSTRUCTIONS MEDICATIONS ADMINISTERED No Known Medications MEDICAL (GENERAL) HISTORY Type Description Date Medical History Hypertension Medical History ADHD Medical History depression Medical History anxiety Surgical History section Surgical History collar bone repair
[2020-02-11 01:43] LABS: HEMOGLOBIN 13.4 G/DL (11.5-16.0); MEAN PLATELET VOLUME 10.6 FL (7.4-10.4); RED CELL DISTRIBUTION WIDTH 13.9 % (10.0-14.5); WHITE BLOOD COUNT 13.1 10^3/uL (4.3-11.0)
[2020-02-11] MEDS ORDERED: TETANUS,DIPTH,PERTUSS P/F (BOOSTRIX) 0.5 ML VIAL IM ONE (01:45)
[2020-02-11] MEDS ORDERED: LORazepam INJ 2 MG/ML (ATIVAN) VIAL IVP ONE (01:45)
[2020-02-11] MEDS ORDERED: ceFAZolin 2 GM IV Premixed 50 ML IV ONE ×2 (01:45→10:30)
[2020-02-11 01:54] LABS: ALBUMIN 4.3 GM/DL (3.2-4.5); CHLORIDE 106 MMOL/L (98-107); POTASSIUM 4.3 MMOL/L (3.6-5.0); SODIUM 143 MMOL/L (135-145)
[2020-02-11 01:55] LABS: CALCIUM 9.1 MG/DL (8.5-10.1)
[2020-02-11 01:56] LABS: GLUCOSE 108 MG/DL (70-105); TOTAL PROTEIN 7.2 GM/DL (6.4-8.2)
[2020-02-11 01:57] LABS: CARBON DIOXIDE 24 MMOL/L (21-32)
[2020-02-11 01:58] LABS: BILIRUBIN,TOTAL 0.2 MG/DL (0.1-1.0)
[2020-02-11 02:00] LABS: ALKALINE PHOSPHATASE 73 U/L (40-136); CREATININE SERUM 0.88 MG/DL (0.60-1.30); GFR ESTIMATED > 60
[2020-02-11 02:01] LABS: BILIRUBIN,DIRECT 0.1 MG/DL (0.0-0.3); BILIRUBIN,INDIRECT 0.1 MG/DL; BUN/CREATININE RATIO 10
[2020-02-11 02:03] LABS: ALANINE AMINOTRANSFERASE 267 U/L (0-55)
[2020-02-11] MEDS ORDERED: LACTATED RINGERS 1,000 ML IV ONE ×2 (03:55→07:12)
[2020-02-11] MEDS ORDERED: NS IV 1000 ML 1,000 ML IV SCH (03:55)
[2020-02-11] MEDS ORDERED: ONDANSETRON 4 MG/2 ML (SDV) Z0FRAN IVP ONE (04:15)
[2020-02-11] MEDS ORDERED: LIDOCAINE 1% INJ 20 ML 20 ML VIAL INJ ONE (04:30)
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
[2020-02-11 07:50] LABS: AMPHETAMINE SCREEN, URINE POSITIVE (NEGATIVE); BARBITURATE SCREEN URINE NEGATIVE (NEGATIVE); BENZODIAZEPINES SCREEN URINE POSITIVE (NEGATIVE); CANNABINOID SCREEN, URINE NEGATIVE (NEGATIVE); COCAINE SCREEN URINE NEGATIVE (NEGATIVE); METHADONE STAT NEGATIVE (NEGATIVE); METHAMPHETAMINE SCREEN URINE S NEGATIVE (NEGATIVE); OPIATE SCREEN URINE NEGATIVE (NEGATIVE); OXYCODONE STAT NEGATIVE (NEGATIVE); PROPOXYPHENE STAT NEGATIVE (NEGATIVE); TRICYCLIC ANTIDEPRESSANTS SCRE NEGATIVE (NEGATIVE)
[2020-02-11] MEDS ORDERED: ONDANSETRON 4 MG/2 ML (SDV) Z0FRAN IV PRN (08:15)
[2020-02-11] MEDS ORDERED: LORazepam INJ 2 MG/ML (ATIVAN) VIAL INJ PRN ×3 (08:15)
[2020-02-11] MEDS ORDERED: LORazepam 1 MG (ATIVAN) TAB PO PRN (08:15)
[2020-02-11] MEDS: FOLIC ACID 1 MG TAB PO SCH (08:42)
[2020-02-11] MEDS: MAGNESIUM OXIDE (MAG-OX)400 MG TAB PO SCH ×2 (08:42→19:46)
[2020-02-11] MEDS: HYDROcodone/APAP 5 MG/325 MG (LORTAB) TAB PO PRN ×2 (08:42→16:41)
[2020-02-11] MEDS: TRIM/SULFAMETH 160/800 (SEPTRA DS) TAB PO SCH ×2 (08:42→16:41)
[2020-02-11] MEDS: LACTATED RINGERS 1,000 ML IV SCH ×3 (08:42→19:47)
[2020-02-11] MEDS: MULTIVIT W/MINERALS TAB (THERAGRAN M) PO SCH (08:45)
[2020-02-11] MEDS: THIAMINE 100 MG (VITAMIN B-1) TAB PO SCH (08:45)
[2020-02-11 09:58] LABS: BILIRUBIN,URINE NEGATIVE (NEGATIVE); CLARITY,URINE CLEAR; COLOR,URINE YELLOW; GLUCOSE, URINE (UA) NEGATIVE (NEGATIVE); KETONES,URINE NEGATIVE (NEGATIVE); LEUKOCYTE ESTERASE ,URINE NEGATIVE (NEGATIVE); NITRITE,URINE NEGATIVE (NEGATIVE); PH,URINE 5.5 (5-9); PROTEIN,URINE 1+ (NEGATIVE)
[2020-02-11 10:03] LABS: BACTERIA,URINE TRACE /HPF; WBC,URINE RARE /HPF
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
[2020-02-11] MEDS: LORazepam 1 MG (ATIVAN) TAB PO PRN (10:58)
[2020-02-11] MEDS ORDERED: fentaNYL INJECTION 100 MCG/2 ML AMP ONE (11:09)
[2020-02-11] MEDS ORDERED: MIDAZOLAM 2 MG/2 ML (VERSED) VIAL ONE (11:09)
--- NOTE | 2020-02-11 11:10 | NUR ---
TRANSFERRED TO OR. PER BED.
[2020-02-11] MEDS ORDERED: LIDOCAINE PF 2% 5 ML (XYLOCAINE) VIAL ONE (11:34)
[2020-02-11] MEDS ORDERED: proPOfol 200 MG/20 ML (DIPRIVAN) VIAL IV ONE (11:34)
[2020-02-11] MEDS: LACTATED RINGERS 1,000 ML IV PRN ×2 (11:40→12:39)
[2020-02-11] MEDS ORDERED: ceFAZolin INJECTION 2,000 MG ONE (11:57)
[2020-02-11] MEDS ORDERED: BUP/EPI 0.5% 1:200,000 (SENSORCAINE) 30 ML VIAL ONE (12:30)
[2020-02-11] MEDS ORDERED: NEO/POLY/BAC (NEOSPORIN) OINT 15 GM TUBE ONE (12:55)
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
[2020-02-11] MEDS ORDERED: ONDANSETRON 4 MG/2 ML (SDV) Z0FRAN ONE (13:11)
[2020-02-11] MEDS ORDERED: DEXAMETHASONE 10 MG/ML (DECADRON) 1 ML VIAL ONE (13:11)
[2020-02-11] MEDS ORDERED: SEVOFLURANE (ULTANE) 15 ML INHAL SOLN ONE (13:12)
[2020-02-11] MEDS ORDERED: morphine INJ 10 MG/ML 1ML (SYR OR VIAL) ONE (13:21)
[2020-02-11] MEDS ORDERED: ONDANSETRON 4 MG/2 ML (SDV) Z0FRAN IVP PRN (13:30)
[2020-02-11] MEDS ORDERED: HYDROmorphone 2 MG/ML VIAL (DILAUDID) IV ONE (13:30)
[2020-02-11] MEDS ORDERED: morphine INJ 10 MG/ML 1ML (SYR OR VIAL) IVP ONE (13:30)
[2020-02-11] MEDS ORDERED: fentaNYL INJECTION 100 MCG/2 ML AMP IVP PRN (13:30)
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
--- NOTE | 2020-02-11 14:15 | NUR ---
TRANSFERRED FROM R.R. TO ROOM 409 PER BED. ALERT AND COOPERATIVE. SKIN W/S. RESP. REGULAR. SLEEPING AT INTERVALS. RIGHT LOWER ARM SPLINT IN PLACE WITH AYE WRAP AND ICE TO RIGHT LOWER ARM. RIGHT FINGERS WARM AND PINK. 2 + EDEMA IN RIGHT FINGERS. ABLE TO MOVE RIGHT FINGERS WITH SOME DIFFICULTY. C/O OF LEFT LOWER LEG PAIN AND UNABLE TO STAND ON THE LEFT LEG. UP TO BSC. VOIDED LARGE AMT. CLEAR YELLOW URINE. DRESSING IN PLACE TO AREA OF JOSE WITH TELFA AND KERLEX.
--- NOTE | 2020-02-11 17:30 | NUR ---
ATTEMPTED TO CALL [facility] FOR HOME MEDS WITHOUT SUCCESS. PT. COULD NOT REMEMBER DOSAGE OF HOME MEDS.
[2020-02-11] MEDS: fentaNYL INJECTION 100 MCG/2 ML AMP IVP PRN ×2 (17:53→22:09)
--- NOTE | 2020-02-11 18:00 | NUR ---
CMS CHECK TO RIGHT HAND GOOD. ABLE TO MOVE RIGHT FINGERS WITH SOME DIFFICULTY. RIGHT FINGERS WARM AND PINK.
--- NOTE | 2020-02-11 18:30 | NUR ---
SISTER AT BEDSIDE.
[2020-02-11] MEDS: ceFAZolin 2 GM IV Premixed 50 ML IV SCH ×2 (19:47→22:12)
--- NOTE | 2020-02-11 20:51 | Progress Note - Ortho ---
Progress Note Subjective Date of Exam 02/11/20 Chief Complaint N/A HPI/Events since last exam Mrs. Warner was having some problems with pain management. We increased her fentanyl dose to 50 g every 2 hours when necessary pain. She is also taking oral medication and has hydrocodone and oxycodone available. She states her pain is better controlled on the 50 g of fentanyl Review of Systems Unchanged Allergies: Coded Allergies: No Known Drug Allergies (Unverified , 01/12/13) Home Meds Reported Medications Zolpidem Tartrate (Zolpidem Tartrate) 10 Mg Tablet, 10 MG PO HS PRN PRN SLEEP 01/12/13 Discontinued Reported Medications Hydrocodone Bit/Acetaminophen (LORTAB 7.5 MG TABLET) 1 Ea Tablet, 1 - 2 EA PO Q4 TO Q6HR PRN, #28 01/19/13 Venlafaxine Hcl (Effexor Xr) 150 Mg Cap.sr.24h, 150 MG PO DAILY 01/12/13 Hctz/Lisinopril (Lisinopril-Hctz 10-12.5 Mg Tab) 1 Each Tablet, 10 - 12.5 MG PO DAILY 01/12/13 Atenolol (Tenormin 50 Mg) 50 Mg Tablet, 50 MG PO DAILY 01/12/13 Diclofenac Potassium (Cataflam) 50 Mg Tablet, 50 MG PO TID PRN PRN PAIN 01/12/13 Objective Exam Constitutional: [] HEENT: [] Neck: [] Cardiovascular: [] Respiratory: [] Gastrointestinal: [] Genitourinary: [] Skin: [] Back/Spine: [] Extremities: [Her fingers are minimally swollen. They're pink and warm. She has normal sensation to the thumb and all fingers. Passive extension causes some pain but as I continue to passively extend her fingers her pain decreases. She is able to actively flex and extend her fingers with some mild pain but again the more she moves her fingers the less the pain is. She has good capillary refill. The splint is intact. She continues to have pain in her shoulder.] Neurologic: [] Psychiatric: [] Hematologic/lymphatic/immunologic: [] Vital Signs Vital Signs Date Time Temp Pulse Resp B/P (MAP) Pulse Ox O2 Delivery O2 Flow Rate FiO2 02/11/20 19:35 37.1 84 16 150/82 (104) 94 Nasal Cannula 1.00 02/11/20 19:00 93 02/11/20 16:12 36.8 96 20 159/88 (111) 94 Nasal Cannula 3.50 02/11/20 15:43 Nasal Cannula 3.00 02/11/20 14:46 37.2 91 18 152/81 (104) 95 Nasal Cannula 3.50 02/11/20 14:15 Nasal Cannula 3 02/11/20 14:10 37.0 11 141/82 (101) 96 Nasal Cannula 3 02/11/20 14:00 Nasal Cannula 3 02/11/20 14:00 12 143/95 (111) 95 Nasal Cannula 3 02/11/20 13:50 12 154/90 (111) 97 OxyMask 10 02/11/20 13:50 OxyMask 10 02/11/20 13:40 14 152/89 (110) 98 OxyMask 10 02/11/20 13:35 OxyMask 10 02/11/20 13:30 18 156/86 (109) 99 OxyMask 10 02/11/20 13:22 16 142/89 (106) 99 OxyMask 10 02/11/20 13:18 OxyMask 10 02/11/20 13:18 37.4 13 127/89 (102) 97 OxyMask 10 02/11/20 12:12 90 02/11/20 08:30 37.2 97 19 127/63 (84) 96 Room Air 02/11/20 08:08 37.0 88 16 122/72 98 Room Air 02/11/20 08:00 Room Air 02/11/20 07:58 87 02/11/20 06:30 36.9 86 21 120/78 97 Room Air 02/11/20 01:16 37.0 76 20 110/70 (83) 96 Room Air I & O 02/11/20 07:00 Intake Total 2050 ml Balance 2050 ml Lab Results Laboratory Tests 02/11/20 01:30: White Blood Count 13.1H, Red Blood Count 4.33L, Hemoglobin 13.4, Hematocrit 40, Mean Corpuscular Volume 93, Mean Corpuscular Hemoglobin 31, Mean Corpuscular Hemoglobin Concent 33, Red Cell Distribution Width 13.9, Platelet Count 308, Mean Platelet Volume 10.6H, Sodium Level 143, Potassium Level 4.3, Chloride Level 106, Carbon Dioxide Level 24, Anion Gap 13, Blood Urea Nitrogen 9, Creatinine 0.88, Estimat Glomerular Filtration Rate > 60, BUN/Creatinine Ratio 10, Glucose Level 108H, Calcium Level 9.1, Total Bilirubin 0.2, Direct Bilirubin 0.1, Indirect Bilirubin 0.1, Aspartate Amino Transf (AST/SGOT) 270H, Alanine Aminotransferase (ALT/SGPT) 267H, Alkaline Phosphatase 73, Total Protein 7.2, Albumin 4.3, Serum Test, Qualitative NEGATIVE, Serum Alcohol 200H 02/11/20 07:32: Urine Color YELLOW, Urine Clarity CLEAR, Urine pH 5.5, Urine Specific [place] <=1.005, Urine Protein 1+H, Urine Glucose (UA) NEGATIVE, Urine Ketones NEGATIVE, Urine Nitrite NEGATIVE, Urine Bilirubin NEGATIVE, Urine Urobilinogen 0.2, Urine Leukocyte Esterase NEGATIVE, Urine RBC (Auto) 2+H, Urine RBC NONE, Urine WBC RARE, Urine Crystals NONE, Urine Bacteria TRACE, Urine Casts NONE, Urine Mucus NEGATIVE, Urine Culture Indicated NO, Urine Opiates Screen NEGATIVE, Urine Ox ycodone Screen NEGATIVE, Urine Methadone Screen NEGATIVE, Urine Propoxyphene Screen NEGATIVE, Urine Barbiturates Screen NEGATIVE, Ur Tricyclic Antidepressants Screen NEGATIVE, Urine Phencyclidine Screen NEGATIVE, Urine Amphetamines Screen POSITIVEH, Urine Methamphetamines Screen NEGATIVE, Urine Benzodiazepines Screen POSITIVEH, Urine Cocaine Screen NEGATIVE, Urine Cannabinoids Screen NEGATIVE 02/11/20 10:30: Assessment and Plan Assessment Doing well postop another pain is better controlled Problem List Unchanged Plan Continue ice elevation and IV and by mouth pain meds. Continue to move the fingers and thumb is much as possible Final Diagonsis Status post open reduction internal fixation right ulnar shaft Level of the visit: Level 3 Clinical Quality Measures DVT/VTE Risk/Contraindication: Risk Factor Score Per Nursin RFS Level Per Nursing on Admit: 4+=Very High AMARILYS MARIA MD Feb 11, 2020 20:51
[2020-02-12] VITALS (7 sets, daily range): BP systolic 142–181; BP diastolic 68–83
[2020-02-12] MEDS: LORazepam 1 MG (ATIVAN) TAB PO PRN ×2 (00:11→02:07)
[2020-02-12] MEDS: fentaNYL INJECTION 100 MCG/2 ML AMP IVP PRN ×4 (00:11→21:59)
[2020-02-12] MEDS: ceFAZolin 2 GM IV Premixed 50 ML IV SCH (05:37)
[2020-02-12] MEDS: oxyCODONE/APAP 5/325MG (PERCOCET 5) TABLET PO PRN ×2 (05:38→20:56)
[2020-02-12] MEDS: MULTIVIT W/MINERALS TAB (THERAGRAN M) PO SCH (05:38)
[2020-02-12] MEDS: THIAMINE 100 MG (VITAMIN B-1) TAB PO SCH (05:40)
[2020-02-12] MEDS: FOLIC ACID 1 MG TAB PO SCH (08:38)
[2020-02-12] MEDS: MAGNESIUM OXIDE (MAG-OX)400 MG TAB PO SCH ×2 (08:38→20:56)
[2020-02-12] MEDS: TRIM/SULFAMETH 160/800 (SEPTRA DS) TAB PO SCH ×2 (08:38→18:01)
[2020-02-12] MEDS: HYDROcodone/APAP 5 MG/325 MG (LORTAB) TAB PO PRN ×3 (08:49→17:38)
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
--- NOTE | 2020-02-12 10:11 | NUR ---
Pt is listed as Mosque and is open to sacraments. Loin Trimmer
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
--- NOTE | 2020-02-12 11:29 | NUR ---
CM/SS attempted to visit with patient for social service consult. Patient declined visit at this time. CM/SS will attempt at a later time.
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
--- NOTE | 2020-02-12 14:27 | Anesthesia-General Post-Op ---
General Patient Condition Mental Status/LOC: Same as Preop Cardiovascular: Satisfactory Nausea/Vomiting: Absent Respiratory: Satisfactory Pain: Controlled Complications: Absent Post Op Complications Complications None Follow Up Care/Instructions Patient Instructions None needed. Anesthesia/Patient Condition Patient Condition Patient is resting comfortably and doing well, no complaints, stable vital signs, no apparent adverse anesthesia problems. IVETTE NÚÑEZ DO Feb 12, 2020 14:27
[2020-02-12] MEDS ORDERED: DESV50TA PO ×2 (16:31)
[2020-02-12] MEDS ORDERED: IBUP-2185 PO ×2 (16:31)
[2020-02-12] MEDS ORDERED: LORA10TA76 PO ×2 (16:31)
[2020-02-12] MEDS ORDERED: ZOLP10TA PO ×2 (16:31)
[2020-02-12] MEDS ORDERED: RIZA10TA37 PO ×2 (16:31)
[2020-02-12] MEDS ORDERED: BUPR150T7 PO ×2 (16:31)
[2020-02-12] MEDS ORDERED: AMPH20CA5 PO ×2 (16:31)
--- NOTE | 2020-02-12 16:32 | NUR ---
SPOKE WITH PT AND GOT A MED LIST FROM [facility] TO COMPLETE THE MED REC THE FOLLOWING ARE FILL DATES: 12-26-2019 RIZATRIPTAN 10MG #24 01-16-2020 BUPROPION XL 150MG #90/90DS 01-16-2020 PRISTIQ 50MG #90/90DS 01-17-2020 AMBIEN 10MG #28 01-29-2020 ADDERLL XR 20MG #56/28DS OTC MEDS: IBUPROFEN CLARITIN
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
[2020-02-12] MEDS: LACTATED RINGERS 1,000 ML IV SCH (17:44)
[2020-02-13] VITALS: BP 145/86
[2020-02-13] MEDS: fentaNYL INJECTION 100 MCG/2 ML AMP IVP PRN ×2 (02:51→08:16)
[2020-02-13] MEDS: LORazepam 1 MG (ATIVAN) TAB PO PRN (02:59)
[2020-02-13 04:00] VITALS: BP 149/91
[2020-02-13] MEDS: LACTATED RINGERS 1,000 ML IV SCH (04:34)
[2020-02-13] MEDS: MULTIVIT W/MINERALS TAB (THERAGRAN M) PO SCH (06:43)
[2020-02-13] MEDS: THIAMINE 100 MG (VITAMIN B-1) TAB PO SCH (06:43)
[2020-02-13 08:00] VITALS: BP 159/87
[2020-02-13] MEDS: MAGNESIUM OXIDE (MAG-OX)400 MG TAB PO SCH (08:29)
[2020-02-13] MEDS: FOLIC ACID 1 MG TAB PO SCH (08:29)
[2020-02-13] MEDS: TRIM/SULFAMETH 160/800 (SEPTRA DS) TAB PO SCH (08:29)
[2020-02-13] MEDS: HYDROcodone/APAP 5 MG/325 MG (LORTAB) TAB PO PRN (08:30)
--- NOTE | 2020-02-13 10:11 | Physical Therapy Daily Note ---
PT Daily Note-Current Subjective Patient is very lethargic and reluctantly agrees to PT. Pain Numeric Pain Scale: 10-Worst Possible Pain Location: Right Location Body Site: Arm Pain Description: Acute Comment: pain meds issues Mental Status Patient Orientation: Normal For Age Attachments: IV Transfers SCALE: Activities may be completed with or without assistive devices. 8-Tyoyslxkgo-taukcnf completes the activity by him/herself with no assistance from a helper. 5-Set-up or Clean-up Assistance-helper sets up or cleans up; patient completes activity. [place] assists only prior to or following the activity. 4-Supervision or Touching Assistance-helper provides verbal cues and/or touching/steadying and/or contact guard assistance as patient completes activity. Assistance may be provided throughout the activity or intermittently. 3-Partial/Moderate Assistance-helper does LESS THAN HALF the effort. [place] lifts, holds or supports trunk or limbs, but provides less than half the effort. 2-Substantial/Maximal Assistance-helper does MORE THAN HALF the effort. [place] lifts or holds trunk or limbs and provides more than half the effort. 1-Yggomizgy-dkcaaj does ALL the effort. Patient does none of the effort to complete the activity. Or, the assistance of 2 or more helpers is required for the patient to complete the activity. If activity was not attempted, code reason: 7-Patient Refused. 9-Not Applicable-not attempted and the patient did not perform the activity before the current illness, exacerbation or injury. 10-Not Attempted due to Environmental Limitations-(lack of equipment, weather restraints, etc.). 88-Not Attempted due to Medical Conditions or Safety Concerns. Roll Left & Right (QC): 6 Sit to Lying (QC): 6 Lying to Sitting/Side of Bed(Q: 6 Sit to Stand (QC): 4 Chair/Jcx-ec-Lqenj Xfer(QC): 4 CGA for safety/very slow and antalgic with VC's for cane use and posture with gait training Gait Training Does the Patient Walk?: Yes Distance: 150' Walk 10 feet (QC): 4 Walk 50 ft with 2 Turns(QC): 4 Walk 150 ft (QC): 4 Gait Assistive Device: Cane Single Point slow and antalgic/CGA for safety due to patient's mentation Assessment Patient requires time to complete all functional tasks due to pain medication and emotional status. Patient is up in recliner with needs met. Patient is left on the phone and is very tearful and yelling. RN is aware and DIESEL SERVICE JOURNEYMAN is present in room. PT Care Home Goals Care Home Goals PT C Consultant Goals Time Frame: Feb 17, 2020 Roll Left & Right (QC): 6 Sit to Lying (QC): 6 Lying-Sitting on Side/Bed(QC): 6 Sit to Stand (QC): 6 Chair/Xmw-bd-Pzzzv Xfer(QC): 6 Toilet Transfer (QC): 6 Does the Patient Walk: Yes Walk 10 feet (QC): 6 Walk 50ft with 2 Turns (QC): 6 Walk 150 ft (QC): 6 PT Plan Treatment/Plan Treatment Plan: Continue Plan of Care Treatment Plan: Bed Mobility, Education, Functional Activity Chantelle, Functional Strength, Gait, Safety, Therapeutic Exercise, Transfers Treatment Duration: Feb 17, 2020 Frequency: 6 times per week Estimated Hrs Per Day: .25 hour per day Patient and/or Family Agrees t: Yes Time/GCodes Time In: 900 Time Out: 923 Total Billed Treatment Time: 23 Total Billed Treatment 1 visit GT x 2 23 min LATONYA CAGLE PT Feb 13, 2020 10:11
[2020-02-13] MEDS ORDERED: OXYC1TAB87 PO ×2 (10:14)
--- NOTE | 2020-02-13 10:35 | Progress Note - Ortho ---
Progress Note Subjective Date of Exam 02/13/20 Chief Complaint Status post open reduction internal fixation right ulna fracture HPI/Events since last exam The patient is 2 days postop open reduction internal fixation right ulna fracture. She continues with pain. She states sometimes her fingers feel tingly. She is moving the fingers with minimal pain. She states she's been up walking and when I saw her she was up sitting in a chair Review of Systems Reviewed and no additions or changes Allergies: Coded Allergies: No Known Drug Allergies (Unverified , 01/12/13) Home Meds Active Scripts Oxycodone HCl/Acetaminophen (Percocet 5-325 mg Tablet) 1 Each Tablet, 1 TAB PO Q4H PRN for PAIN-MODERATE (5-7), #40 TAB Prov:AMARILYS MARIA MD 02/13/20 Reported Medications Loratadine (Claritin) 10 Mg Tablet, 10 MG PO DAILY PRN for ALLERGY SYMPTOMS, TAB 02/12/20 Ibuprofen (Ibuprofen) 200 Mg Capsule, 400 MG PO Q8H PRN for PAIN-MILD (1-4), CAP 02/12/20 Zolpidem Tartrate (Ambien) 10 Mg Tablet, 10 MG PO HS PRN for SLEEP, TAB 02/12/20 Rizatriptan Benzoate (Rizatriptan) 10 Mg Tablet, 10 MG PO DAILY PRN for MIGRAINE, TAB 02/12/20 Desvenlafaxine Succinate (Pristiq ER) 50 Mg Tab.er.24h, 50 MG PO DAILY, TAB 02/12/20 Bupropion HCl (Bupropion Xl) 150 Mg Tab.er.24h, 150 MG PO DAILY, TAB 02/12/20 Dextroamphetamine/Amphetamine (Adderall Xr 20 mg Capsule) 20 Mg Cap.er.24h, 40 MG PO DAILY for 7 Days, CAP TAKES 2 (20MG) CAPS DAILY 02/12/20 Discontinued Reported Medications Zolpidem Tartrate (Zolpidem Tartrate) 10 Mg Tablet, 10 MG PO HS PRN PRN SLEEP 01/12/13 Hydrocodone Bit/Acetaminophen (LORTAB 7.5 MG TABLET) 1 Ea Tablet, 1 - 2 EA PO Q4 TO Q6HR PRN, #28 01/19/13 Venlafaxine Hcl (Effexor Xr) 150 Mg Cap.sr.24h, 150 MG PO DAILY 01/12/13 Hctz/Lisinopril (Lisinopril-Hctz 10-12.5 Mg Tab) 1 Each Tablet, 10 - 12.5 MG PO DAILY 01/12/13 Atenolol (Tenormin 50 Mg) 50 Mg Tablet, 50 MG PO DAILY 01/12/13 Diclofenac Potassium (Cataflam) 50 Mg Tablet, 50 MG PO TID PRN PRN PAIN 01/12/13 Objective Exam Constitutional: [] HEENT: [] Neck: [] Cardiovascular: [] Respiratory: [] Gastrointestinal: [] Genitourinary: [] Skin: [] Back/Spine: [] Extremities: [Right upper extremityshe move her fingers with minimal pain. With passive motion there slightly increased pain. She has normal sensation to the fingers and thumb with good capillary refill. Continues with right shoulder pain with palpation as well as with motion. Continues with left knee calf and ankle pain. Normal sensation with good capillary refill. Good pulses] Neurologic: [] Psychiatric: [] Hematologic/lymphatic/immunologic: [] Vital Signs Vital Signs Date Time Temp Pulse Resp B/P (MAP) Pulse Ox O2 Delivery O2 Flow Rate FiO2 02/13/20 08:00 37.4 88 20 159/87 (111) 96 Room Air 02/13/20 08:00 95 Room Air 1.00 02/13/20 06:41 90 02/13/20 04:00 37.0 75 20 149/91 (110) 95 Room Air 02/13/20 00:38 78 02/13/20 00:00 37.0 80 19 145/86 (105) 93 Room Air 02/12/20 20:59 Room Air 02/12/20 20:40 37.0 80 16 142/70 (94) 96 Room Air 02/12/20 19:46 86 02/12/20 18:08 37.2 02/12/20 17:20 37.2 86 18 152/76 (101) 95 Room Air 02/12/20 16:00 37.2 86 18 152/76 (101) 95 Room Air 02/12/20 12:36 86 02/12/20 12:00 37.3 85 20 145/82 (103) 96 Room Air I & O 02/13/20 07:00 Intake Total 4050 ml Output Total 1000 ml Balance 3050 ml Lab Results Microbiology 02/11/20 MRSA Screen - Final, Complete MRSA not isolated Assessment and Plan Assessment Slow improvement 2 days postop Problem List Reviewed and no additions or changes Plan Okay for discharge from orthopedic point of view. Follow-up in the office on 02/14 or . She was given a prescription for Percocet 5/325 number 40 if she is discharged today. Continue with ambulation as tolerated. Continue with elevation and ice right forearm. Continue sling Final Diagonsis Fracture right ulnar shaft 2 days postop open reduction internal fixation Level of the visit: Level 3 Clinical Quality Measures DVT/VTE Risk/Contraindication: Risk Factor Score Per Nursin RFS Level Per Nursing on Admit: 4+=Very High AMARILYS MARIA MD Feb 13, 2020 10:35
--- NOTE | 2020-02-13 10:36 | Occupational Ther Daily Note ---
OT Current Status-Daily Note Subjective Pt seated in recliner, very letargic. She agrees to OT tx stating she feels like her pain is better controlled. she did not verbally rate pain. Mental Status/Objective Attachments: IV ADL-Treatment Therapy Code Descriptions/Definitions Functional [place] Measure: 0=Not Assessed/NA 4=Minimal Assistance 1=Total Assistance 5=Supervision or Setup 2=Maximal Assistance 6=Modified [place] 3=Moderate Assistance 7=Complete IndependenceSCALE: Activities may be completed with or without assistive devices. 1-Pczztvfpbx-apdkpzj completes the activity by him/herself with no assistance from a helper. 5-Set-up or Clean-up Assistance-helper sets up or cleans up; patient completes activity. [place] assists only prior to or following the activity. 4-Supervision or Touching Assistance-helper provides verbal cues and/or touching/steadying and/or contact guard assistance as patient completes activity. Assistance may be provided throughout the activity or intermittently. 3-Partial/Moderate Assistance-helper does LESS THAN HALF the effort. [place] lifts, holds or supports trunk or limbs, but provides less than half the effort. 2-Substantial/Maximal Assistance-helper does MORE THAN HALF the effort. [place] lifts or holds trunk or limbs and provides more than half the effort. 9-Plsthovrx-znjkzi does ALL the effort. Patient does none of the effort to complete the activity. Or, the assistance of 2 or more helpers is required for the patient to complete the activity. If activity was not attempted, code reason: 7-Patient Refused. 9-Not Applicable-not attempted and the patient did not perform the activity before the current illness, exacerbation or injury. 10-Not Attempted due to Environmental Limitations-(lack of equipment, weather restraints, etc.). 88-Not Attempted due to Medical Conditions or Safety Concerns. Other Treatment Pt laying in bed. OT educated pt on purpose and benefits of UE exercises in ord er to increase UE strength and functional endurance. Pt completed x15 reps each of the following UE exercises: RUE finger/thumb flexion/extension, LUE shoulder flexion, LUE elbow flexion/extension, & LUE finger flexion/extension. OT educated pt to perform exercises throughout the day, she verbalized understanding. During tx, pt completed exercises slowly, requiring moderate verbal cues to continue due to lethargy. Post OT session, pt laying in bed, call light in reach and all needs met. Education OT Patient Education: Correct positioning, Energy conservation, Exercise program, Progress toward Goal/Update tx plan, Purpose of tx/functional activities, Transfer techniques Teaching Recipient: Patient Teaching Methods: Discussion Response to Teaching: Verbalize Understanding OT Half-Way Goals Board Design Engineer Goals Time Frame: Feb 23, 2020 Eating (QC): 6 Oral Hygiene (QC): 6 Toileting Hygiene (QC): 6 Shower/Bathe Self (QC): 6 Upper Body Dressing (QC): 6 Lower Body Dressing (QC): 6 On/Off Footwear (QC): 6 1=Demonstrate adherence to instructed precautions during ADL tasks. 2=Patient will verbalize/demonstrate understanding of assistive devices/modifications for ADL. 3=Patient will improve strength/tolerance for activity to enable patient to perform ADL's. OT Education/Plan Problem List/Assessment Assessment: Decreased Activ Tolerance, Decreased UE Strength, Impaired I ADL's, Impaired Self-Care Skills, Restricted Funct UE ROM Discharge Recommendations Plan/Recommendations: Continue POC Treatment Plan/Plan of Care Patient would benefit from OT for education, treatment and training to promote independence in ADL's, mobility, safety and/or upper extremity function for ADL's. Plan of Care: ADL Retraining, Functional Mobility, UE Funct Exercise/Act Treatment Duration: Feb 23, 2020 Frequency: 5 times per week Estimated Hrs Per Day: .25 hour per day Rehab Potential: Fair Time/GCodes Start Time: 10:09 Stop Time: 10:18 Total Time Billed (hr/min): 9 Billed Treatment Time 1, EX THERESA QUINTEROS OT Feb 13, 2020 10:35
[2020-02-13 12:10] VITALS: BP 119/73
[2020-02-13] MEDS: oxyCODONE/APAP 5/325MG (PERCOCET 5) TABLET PO PRN (12:18)
[2020-02-13 12:43] VITALS: BP 119/73
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
--- NOTE | 2020-02-13 12:52 | Discharge Inst-Surgical ---
Discharge Inst-Surgical Depart Medication/Instructions New, Converted or Re-Newed RX: RX Given to Pt/Family Patient Instructions Follow up Appt: Make appointment for [address] Dougherty - Orthopedics Instructions: No lifting greater than 20 pounds. No strenuous activity. May shower in 24 hours, no tub bath or soaking. Use incentive spirometer at home as directed. No Smoking Skin/Wound Care: May remove bandages in am. You need to leave the your arm in sling and follow up with Ortho as outpt. Symptoms to Report: Appetite Changes, Extremity Discoloration, Numbness/Tingling, Swelling Increased, Bleeding Excessive, Eyesight Changes, Pain Increased, Urine Color Change, Constipation(Persistent), Fever over 101 degree F, Pain/Pressure in c hest, Urinating Difficulty, Cough Up/Vomit Blood, Heart Beat Irreg/Pounding, Pain/Pressure in jaw, Cramps in feet or legs, Lightheadedness, Pain/Pressure in shoulder, Diarrhea(Persistent), Memory Changes Suddenly, Questions/Concerns, Weight gain consecutive days, Dizziness/Fainting, Nausea/Vomiting, Shortness of Breath, Weight gain over 2 pounds If questions or concerns contact your physician Or seek help at emergency department. Activity Activity as Tolerated: Yes Walking Assistive Device: Cane Activity Instructions: Avoid Stress to Incision Driving Instructions: No Driving/Refer to Dr. Denis Discharge Diet: No Restrictions Diet After 24 Hours: Clear Liquid if Nauseous If Any Problems/Questions/Issu: Contact Your Physician, Go to Emergency Room Skin/Wound Care Infection Signs and Symptoms: Increased Redness, Foul Odor of Wound, Increased Drainage, Skin Itchy or Has a Rash, Increased Swelling, Temperature Above 101 F Bathing Instructions: ADRIANA Marc DO Feb 13, 2020 12:52
--- NOTE | 2020-02-13 13:15 | NUR ---
CM/SS follow up. Plan: The patients family is working together to get the patients new home ready for her. Family will transport home. The patient reports she is doing okay today but sore. The patients physical therapist reported that she would benefit from a walking cane. CM/SS contacted [employer] and checked on pricing. They reported it would be about 25 dollars. CM/SS looked on [employer] and it showed being 10-20 dollars. CM/SS gave the patient this information. She verbalized understanding. The patients physician preferred the patient to stay with someone for a while during her healing; however, cm/ss attempted to discuss this with the patient x3 and she just kept saying "we will figure it out" "my family is taking care of it". No further questions or concerns at this time.
[2020-02-13 15:53] VITALS: BP 137/76
--- OUTSIDE RECORDS SUMMARY | 2020-02-19 18:24 | XMS REPORT ---
Author Author Elaine Collier Doctor Organization [facility] Address Unknown Phone Unavailable Care Team Providers Care Financial Data Analyst Name Role Phone Migration, Doctor Unavailable Unavailable PROBLEMS Type Condition ICD9-CM Code CDP37-KQ Code Onset Dates Condition S tatus SNOMED Code Problem ADHD, predominantly inattentive type F90.0 Active 32901025 Problem Major depressive disorder, recurrent episode, in full remission F33.42 Active 996182015 Problem Seasonal allergies J30.2 Active 4 43085575 Problem Moderate episode of recurrent major depressive disorder F33.1 Active 722578000 Problem Intractable migraine without aura and with status migr ainosus G43.011 Active 946549388 Problem Hyperlipidemia, unspecified hyperlipidemia type E7 8.5 Active 73687583 Problem Essential hypertension I10 Active 89162629 Problem Recurrent sinusitis J32.9 Active 526219821 Problem Primary insomnia F51.01 Active 397 2004 Problem Migraine without aura and without status migrain osus, not intractable G43.009 Active 413379103 Problem Non-seasonal allergic rhinitis due to pollen J30.1 Active 94748421 Problem Severe episode of recurrent major depressive disorder, without psychotic features F33.2 Active 09084186 Problem Depression, major, in remission F32.5 Active 08622428 ALLERGIES No Information ENCOUNTERS Encounter Location Date Diagnosis [facility] [address] [id number] [address] [place] [address] Jan, ADHD, predominantly inattent randall type F90.0 [facility] [address] [facility] [id number] [address] [place] [address] December, ADHD, predominantly inattent randall type F90.0 [facility] [address] [facility] [id number] [address] [place] [address] December, ADHD, predominantly inattent randall type F90.0 [facility] [address] [facility] [id number] [address] [place] [address] December, Primary insomnia F51.01 [facility] [address] [id number] [address] [place] [address] 28 Nov, 2019 ADHD, predominantly inattent randall type F90.0 and Primary insomnia F51.01 [facility] [address] [id number] [address] [place] [address] 24 Nov, 2019 ADHD, predominantly inattent randall type F90.0 [facility] [address] [id number] [address] [place] [address] Nov, ADHD, predominantly inattent randall type F90.0 [facility] [address] [id number] [address] [place] [address] Nov, Depression, major, in remiss ion F32.5 ; Hyperlipidemia, unspecified hyperlipidemia type E78.5 ; Recurrent sinusitis J32.9 and Mammogram declined Z53.20 [facility] [address] [id number] [address] [place] [address] Oct, ADHD, predominantly inattent randall type F90.0 [facility] [address] [id number] [address] [place] [address] Sep, ADHD, predominantly inattent randall type F90.0 [facility] [address] [id number] [address] [place] [address] Sep, [facility] [address] [id number] [address] [place] [address] Sep, ADHD, predominantly inattent randall type F90.0 [facility] [address] [id number] [address] [place] [address] Aug, ADHD, predominantly inattent randall type F90.0 [facility] [address] [id number] [address] [place] [address] Jul, ADHD, predominantly inattent randall type F90.0 [facility] [address] [id number] [address] [place] [address] Jun, ADHD, predominantly inattent randall type F90.0 ; Moderate episode of recurrent major depressive disorder F33.1 and Intractable migraine without aura and with status migrainosus G43.011 [facility] [address] [id number] [address] [place] [address] May, Severe episode of recurrent major depressive disorder, without psychotic features F33.2 [facility] [address] [id number] [address] [place] [address] May, [facility] [address] [id number] [address] [place] [address] Apr, [facility] [address] [id number] [address] [place] [address] Mar, Moderate episode of recurren t major depressive disorder F33.1 [facility] [address] [id number] [address] [place] [address] Mar, [facility] [address] [id number] [address] [place] [address] Feb, [facility] [address] [id number] [address] [place] [address] Feb, [facility] [address] [facility] [id number] [address] [place] [address] Jan, Major depressive disorder, r ecurrent episode, in full remission F33.42 [facility] [address] [id number] [address] [place] [address] Jan, Moderate episode of recurren t major depressive disorder F33.1 ; Non-seasonal allergic rhinitis due to pollen J30.1 ; Migraine without aura and without status migrainosus, not intractable G43.009 and Sinus congestion R09.81 [facility] [address] [id number] [address] [place] [address] Jan, [facility] [address] [id number] [address] [place] [address] December, Moderate episode of recurren t major depressive disorder F33.1 [facility] [address] [id number] [address] [place] [address] December, [facility] [address] [id number] [address] [place] [address] December, Moderate episode of recurren t major depressive disorder F33.1 [facility] [address] [id number] [address] [place] [address] Nov, Moderate episode of recurren t major depressive disorder F33.1 and Intractable migraine without aura and with status migrainosus G43.011 [facility] [address] [id number] [address] [place] [address] Nov, [facility] [address] [id number] [address] [place] [address] Oct, Major depressive disorder, r ecurrent episode, in full remission F33.42 ; Intractable migraine without aura and with status migrainosus G43.011 ; Weight gain R63.5 ; Vision changes H53.9 and Other senior care (current) drug therapy Z79.899 [facility] [address] [id number] [address] [place] [address] Oct, Encounter for pre-employment examination Z02.1 [facility] [address] [id number] [address] [place] [address] 15 Oct, 2018 [facility] [address] [id number] [address] [place] [address] Sep, Acute non-recurrent maxillar y sinusitis J01.00 [facility] [address] [id number] [address] [place] [address] Sep, [facility] [address] [facility] [id number] [address] [place] [address] Aug, [facility] [address] [facility] [id number] [address] [place] [address] Jul, ADHD, predominantly inattent randall type F90.0 and Primary insomnia F51.01 [facility] [address] [id number] [address] [place] [address] Jun, ADHD, predominantly inattent randall type F90.0 [facility] [address] [id number] [address] [place] [address] May, ADHD, predominantly inattent randall type F90.0 ; Moderate episode of recurrent major depressive disorder F33.1 and Therapeutic drug monitoring Z51.81 [facility] [address] [id number] [address] [place] [address] May, [facility] [address] [facility] [id number] [address] [place] [address] Apr, ADHD, predominantly inattent randall type F90.0 [address] [address] [facility] [id number] [address] [place] [address] 10 Apr, 2018 ADHD, predominantly inattent randall type F90.0 and Major depressive disorder, recurrent episode, in full remission F33.42 [facility] [address] [facility] [id number] [address] [place] [address] Mar, ADHD, predominantly inattent randall type F90.0 and Primary insomnia F51.01 [facility] [address] [facility] [id number] [address] [place] [address] Mar, [facility] [address] [facility] [id number] [address] [place] [address] Mar, ADHD, predominantly inattent randall type F90.0 and Primary insomnia F51.01 [facility] [address] [facility] [id number] [address] [place] [address] Feb, ADHD, predominantly inattent randall type F90.0 and Primary insomnia F51.01 [facility] [address] [id number] [address] [place] [address] Jan, ADHD, predominantly inattent randall type F90.0 and Primary insomnia F51.01 [facility] [id number] [address] [place] [address] December, Seasonal allergies J30.2 and Post-nasal drip R09.82 [facility] [id number] [address] [place] [address] December, ADHD, predominantly inattent randall type F90.0 and Primary insomnia F51.01 [address] [id number] [address] [place] [address] Nov, ADHD, predominantly inattent randall type F90.0 [address] [id number] [place] [address] Oct, ADHD, predominantly inattent randall type F90.0 [address] [id number] [place] [address] Oct, ADHD, predominantly inattent randall type F90.0 ; Primary insomnia F51.01 and Screening, lipid Z13.220 [address] [address] [address] Sep, ADHD, predominantly inattent randall type F90.0 [place] [id number] [place] [address] Aug, ADHD, predominantly inattent randall type F90.0 and Primary insomnia F51.01 [address] [id number] [place] [address] Jul, ADHD, predominantly inattent randall type F90.0 [place] [id number] [place] [address] Jul, Primary insomnia F51.01 and ADHD, predominantly inattentive type F90.0 [place] [id number] [place] [address] Jun, ADHD, predominantly inattent randall type F90.0 [place] [id number] [place] [address] May, ADHD, predominantly inattent randall type F90.0 [facility] [address] [id number] [address] [place] [address] Apr, ADHD, predominantly inattent randall type F90.0 [facility] [address] [id number] [address] [place] [address] Mar, ADHD, predominantly inattent randall type F90.0 ; Primary insomnia F51.01 ; Major depressive disorder, recurrent episode, in full remission F33.42 and Acne comedone L70.0 [facility] [address] [id number] [address] [place] [address] Mar, Major depressive disorder, r ecurrent episode, in full remission F33.42 and ADHD, predominantly inattentive type F90.0 [facility] [address] [id number] [address] [place] [address] Feb, ADHD, predominantly inattent randall type F90.0 [facility] [address] [id number] [address] [place] [address] Feb, Primary insomnia F51.01 [facility] [address] [id number] [address] [place] [address] Jan, ADHD, predominantly inattent randall type F90.0 and Primary insomnia F51.01 [facility] [address] [facility] [id number] [address] [place] [address] December, ADHD, predominantly inattent randall type F90.0 and Primary insomnia F51.01 [facility] [address] [id number] [address] [place] [address] Oct, ADHD, predominantly inattent randall type F90.0 and Primary insomnia F51.01 [facility] [address] [facility] [id number] [address] [place] [address] Sep, ADHD, predominantly inattent randall type F90.0 and Primary insomnia F51.01 [facility] [address] [facility] [id number] [address] [place] [address] Aug, ADHD, predominantly inattent randall type F90.0 and Primary insomnia F51.01 [facility] [address] [facility] [id number] [address] [place] [address] Jul, Major depressive disorder, r ecurrent episode, in full remission F33.42 ; ADHD, predominantly inattentive type F90.0 ; Primary insomnia F51.01 ; Acute non-recurrent maxillary sinusitis J01.00 and Screening, lipid Z13.220 [facility] [address] [facility] [id number] [address] [place] [address] Jun, Acute non-recurrent maxillar y sinusitis J01.00 [facility] [address] [facility] [id number] [address] [place] [address] Jun, ADHD, predominantly inattent randall type F90.0 [address] [address] [facility] [id number] [address] [place] [address] May, [facility] [address] [facility] [id number] [address] [place] [address] Apr, [facility] [address] [facility] [id number] [address] [place] [address] Feb, Rash R21 and Scabies B86 [address] [address] [facility] [id number] [address] [place] [address] Feb, ADHD, predominantly inattent randall type F90.0 and Major depressive disorder, recurrent episode, in full remission F33.42 [facility] [address] [facility] [id number] [address] [place] [address] Feb, [place] [address] [facility] [id number] [address] [place] [address] Oct, [facility] [id number] [address] [place] [address] Sep, [facility] [id number] [address] [place] [address] Sep, [address] [address] [id number] [address] [place] [address] Aug, [facility] [address] [id number] [address] [place] [address] Jul, [facility] [address] [id number] [address] [place] [address] Jun, [facility] [address] [id number] [address] [place] [address] May, [facility] [address] [id number] [address] [place] [address] May, ADHD, predominantly inattent randall type F90.0 and Major depressive disorder, recurrent episode, in full remission F33.42 [facility] [address] [id number] [address] [place] [address] Feb, Major depressive disorder, r ecurrent episode, moderate 296.32 [facility] [address] [id number] [address] [place] [address] Feb, [facility] [address] [id number] [address] [place] [address] Jan, [facility] [address] [id number] [address] [place] [address] Jan, [facility] [address] [id number] [address] [place] [address] December, [facility] [address] [id number] [address] [place] [address] Nov, [facility] [address] [id number] [address] [place] [address] Nov, [facility] [address] [id number] [address] [place] [address] Oct, [facility] [address] [id number] [address] [place] [address] Oct, [facility] [address] [id number] [address] [place] [address] [place] [address] Sep, [facility] [address] [id number] [address] [place] [address], [place] [address] Sep, [facility] [address] [id number] [address] [place] [address], [place] [address] Sep, [facility] [address] [id number] [address] [place] [address], [place] [address] Sep, [facility] [address] [id number] [address] [place] [address], [place] [address] Aug, [facility] [address] [id number] [address] [place] [address], [place] [address] Aug, [facility] [address] [id number] [address] [place] [address], [place] [address] Aug, [facility] [address] [id number] [address] [place] [address], [place] [address] Aug, [facility] [address] [id number] [address] [place] [address], [place] [address] Aug, [facility] [address] [id number] [address] [place] [address], [place] [address] Aug, [facility] [address] [id number] [address] [place] [address], [place] [address] Jul, [facility] [address] [id number] [address] [place] [address], [place] [address] Jul, [facility] [address] [id number] [address] [place] [address] Jun, [facility] [address] [id number] [address] [place] [address], [place] [address] Jun, [facility] [address] [id number] [address] [place] [address], [place] [address] May, [facility] [address] [id number] [address] [place] [address], [place] [address] May, [facility] [address] [id number] [address] [place] [address], [place] [address] Apr, [facility] [address] [id number] [address] [place] [address], [place] [address] Apr, [facility] [address] [id number] [address] [place] [address], [place] [address] Apr, [facility] [address] [id number] [address] [place] [address], [place] [address] Mar, [facility] [address] [id number] [address] [place] [address], [place] [address] Mar, [facility] [address] [id number] [address] [place] [address], [place] [address] Mar, [facility] [address] [id number] [address] [place] [address], [place] [address] Mar, [facility] [address] [id number] [address] [place] [address], [place] [address] Feb, [facility] [address] [id number] [address] [place] [address], [place] [address] Feb, [facility] [address] [id number] [address] [place] [address], [place] [address] Feb, [facility] [address] [id number] [address] [place] [address], [place] [address] Feb, [facility] [address] [id number] [address] [place] [address], [place] [address] Feb, [facility] [address] [id number] [address] [place] [address], [place] [address] Feb, [facility] [address] [id number] [address] [place] [address], [place] [address] Jan, [facility] [address] [id number] [address] [place] [address], [place] [address] Jan, [facility] [address] [id number] [address] [place] [address], [place] [address] Jan, [facility] [address] [id number] [facility] [place] [address] Jan, [facility] [address] [id number] [address] [place] [address], [place] [address] December, [facility] [address] [id number] [address] [place] [address], [place] [address] December, [facility] [address] [id number] [address] [place] [address], [place] [address] December, [facility] [address] [id number] [address] [place] [address], [place] [address] December, [facility] [address] [id number] [address] [place] [address], [place] [address] December, [facility] [address] [id number] [address] [place] [address], [place] [address] December, [facility] [address] [id number] [address] [place] [address], [place] [address] December, [facility] [address] [id number] [address] [place] [address], [place] [address] December, [facility] [address] [id number] [address] [place] [address], [place] [address] December, [facility] [address] [id number] [address] [place] [address], [place] [address] December, [facility] [address] [id number] [address] [place] [address], [place] [address] Nov, [facility] [address] [id number] [address] [place] [address], [place] [address] Nov, [facility] [address] [id number] [address] [place] [address], [place] [address] Oct, [facility] [address] [id number] [address] [place] [address], [place] [address] Oct, [facility] [address] [id number] [address] [place] [address], [place] [address] 10 Oct, 2013 [facility] [address] [id number] [address] [place] [address], [place] [address] 10 Oct, 2013 [facility] [address] [id number] [address] [place] [address], [place] [address] Oct, [facility] [address] [id number] [address] [place] [address], [place] [address] Oct, [facility] [address] [id number] [address] [place] [address], [place] [address] Aug, [facility] [address] [id number] [address] [place] [address], [place] [address] Aug, [facility] [address] [id number] [address] [place] [address], [place] [address] Aug, [facility] [address] [id number] [address] [place] [address], [place] [address] Aug, [facility] [address] [id number] [address] [place] [address], [place] [address] Aug, [facility] [address] [id number] [address] [place] [address], [place] [address] Aug, [facility] [address] [id number] [address] [place] [address], [place] [address] Aug, [facility] [address] [id number] [address] [place] [address], [place] [address] Aug, [facility] [address] [id number] [address] [place] [address], [place] [address] Jul, [facility] [address] [id number] [address] [place] [address], [place] [address] Jul, [facility] [address] [id number] [address] [place] [address], [place] [address] Jun, [facility] [address] [id number] [address] [place] [address], [place] [address] Jun, [facility] [address] [id number] [address] [place] [address], [place] [address] Jun, [facility] [address] [id number] [address] [place] [address], [place] [address] Jun, [facility] [address] [id number] [address] [place] [address], [place] [address] Jun, [facility] [address] [id number] [address] [place] [address], [place] [address] Jun, [facility] [address] [id number] [address] [place] [address], [place] [address] May, [facility] [address] [id number] [address] [place] [address], [place] [address] May, [facility] [address] [id number] [address] [place] [address], [place] [address] Apr, [facility] [address] [id number] [address] [place] [address], [place] [address] Apr, [facility] [address] [id number] [address] [place] [address], [place] [address] Mar, [facility] [address] [id number] [address] [place] [address], [place] [address] Mar, [facility] [address] [id number] [address] [place] [address], [place] [address] Mar, [facility] [address] [id number] [address] [place] [address], [place] [address] Feb, [facility] [address] [id number] [address] [place] [address], [place] [address] Jan, [facility] [address] [id number] [address] [place] [address], [place] [address] December, [facility] [address] [id number] [address] [place] [address], [place] [address] December, [facility] [address] [id number] [address] [place] [address] [place] [address] December, [facility] [address] [id number] [address] [place] [address], [place] [address] December, [facility] [address] [id number] [address] [place] [address], [place] [address] December, [facility] [address] [id number] [address] [place] [address], [place] [address] December, [facility] [address] [id number] [address] [place] [address], [place] [address] Nov, [facility] [address] [id number] [address] [place] [address], [place] [address] Nov, [facility] [address] [id number] [address] [place] [address], [place] [address] Nov, [facility] [address] [id number] [address] [place] [address], [place] [address] Oct, [facility] [address] [id number] [address] [place] [address], [place] [address] Jun, [facility] [address] [id number] [address] [place] [address], [place] [address] Jun, [facility] [address] [id number] [address] [place] [address], [place] [address] Jun, [facility] [address] [id number] [address] [place] [address], [place] [address] Jun, [facility] [address] [id number] [address] [place] [address], [place] [address] Apr, [facility] [address] [id number] [address] [place] [address], [place] [address] Mar, [facility] [address] [id number] [address] [place] [address], [place] [address] Mar, [facility] [address] [id number] [address] [place] [address], [place] [address] Jan, [facility] [address] [id number] [address] [place] [address] December, [facility] [address] [id number] [address] [place] [address] Nov, [facility] [address] [id number] [address] [place] [address] Nov, [facility] [address] [id number] [address] [place] [address] Nov, [facility] [address] [id number] [address] [place] [address] Nov, [facility] [address] [id number] [address] [place] [address] Aug, [facility] [address] [id number] [address] [place] [address] Aug, [facility] [address] [id number] [address] [place] [address] Jul, [facility] [address] [id number] [address] [place] [address] Jun, [facility] [address] [id number] [address] [place] [address] Jun, [facility] [address] [id number] [address] [place] [address] Apr, [facility] [address] [id number] [address] [place] [address] Feb, IMMUNIZATIONS No Known Immunizations SOCIAL HISTORY [...]
--- OUTSIDE RECORDS SUMMARY | 2020-02-19 18:24 | XMS REPORT ---
Author Author Elaine GALARZA Organization [facility] Address [address] [place] [address] Care Team Providers Care Director Product Development Name Role Phone MARI GALARZA Unavailable PROBLEMS Type Condition ICD9-CM Code DUT39-GO Code Onset Dates Condition S tatus SNOMED Code Problem ADHD, predominantly inattentive type F90.0 Active 89714341 Problem Major depressive disorder, recurrent episode, in full remission F33.42 Active 828764396 Problem Seasonal allergies J30.2 Active 4 09810575 Problem Moderate episode of recurrent major depressive disorder F33.1 Active 277866327 Problem Intractable migraine without aura and with status migr ainosus G43.011 Active 650718357 Problem Hyperlipidemia, unspecified hyperlipidemia type E7 8.5 Active 96641327 Problem Essential hypertension I10 Active 45136629 Problem Recurrent sinusitis J32.9 Active 600582301 Problem Primary insomnia F51.01 Active 397 2004 Problem Migraine without aura and without status migrain osus, not intractable G43.009 Active 795208432 Problem Non-seasonal allergic rhinitis due to pollen J30.1 Active 24269691 Problem Severe episode of recurrent major depressive disorder, without psychotic features F33.2 Active 35619988 Problem Depression, major, in remission F32.5 Active 27659120 ALLERGIES No Information ENCOUNTERS Encounter Location Date Diagnosis [facility] [address] [facility] [id number] [address] [place] [phone] December, ADHD, predominantly inattent randall type F90.0 [facility] [address] [facility] [id number] [address] [place] [address] December, ADHD, predominantly inattent randall type F90.0 [facility] [address] [facility] [id number] [address] [place] [address] December, Primary insomnia F51.01 [place] [address] [id number] [address] [place] [address] 28 Nov, 2019 ADHD, predominantly inattent randall type F90.0 and Primary insomnia F51.01 [facility] [address] [id number] [address] [place] [address] 24 Nov, 2019 ADHD, predominantly inattent randall type F90.0 [facility] [address] [id number] [address] [place] [address] Nov, ADHD, predominantly inattent randall type F90.0 [facility] [address] [id number] [address] [place] [address] 13 Nov, 2019 Depression, major, in remiss ion F32.5 ; Hyperlipidemia, unspecified hyperlipidemia type E78.5 ; Recurrent sinusitis J32.9 and Mammogram declined Z53.20 [facility] [address] [id number] [address] [place] [phone] Oct, ADHD, predominantly inattent randall type F90.0 [facility] [address] [id number] [address] [place] [address] 28 Sep, 2019 ADHD, predominantly inattent randall type F90.0 [facility] [address] [id number] [address] [place] [address] Sep, [facility] [address] [id number] [address] [place] [id number] 04 Sep, 2019 ADHD, predominantly inattent randall type F90.0 [facility] [address] [id number] [address] [place] [address] Aug, ADHD, predominantly inattent randall type F90.0 [facility] [address] [id number] [address] [place] [address] Jul, ADHD, predominantly inattent randall type F90.0 [facility] [address] [id number] [address] [place] [address] Jun, ADHD, predominantly inattent randall type F90.0 ; Moderate episode of recurrent major depressive disorder F33.1 and Intractable migraine without aura and with status migrainosus G43.011 [facility] [address] [id number] [address] [place] [address] May, Severe episode of recurrent major depressive disorder, without psychotic features F33.2 [facility] [address] [id number] [address] [place] [phone] May, [facility] [address] [id number] [address] [place] [phone] Apr, [facility] [address] [id number] [address] [place] [address] Mar, Moderate episode of recurren t major depressive disorder F33.1 [facility] [address] [facility] [id number] [address] [place] [address] Mar, [facility] [address] [facility] [id number] [address] [place] [address] Feb, [facility] [address] [facility] [id number] [address] [place] [address] Feb, [facility] [address] [facility] [id number] [address] [place] [address] Jan, Major depressive disorder, r ecurrent episode, in full remission F33.42 [facility] [address] [facility] [id number] [address] [place] [address] Jan, Moderate episode of recurren t major depressive disorder F33.1 ; Non-seasonal allergic rhinitis due to pollen J30.1 ; Migraine without aura and without status migrainosus, not intractable G43.009 and Sinus congestion R09.81 [facility] [address] [facility] [id number] [address] [place] [address] Jan, [facility] [address] [facility] [id number] [address] [place] [address] December, Moderate episode of recurren t major depressive disorder F33.1 [facility] [address] [facility] [id number] [address] [place] [address] December, [facility] [address] [facility] [id number] [address] [place] [address] December, Moderate episode of recurren t major depressive disorder F33.1 [place] [address] [facility] [id number] [address] [place] [address] Nov, Moderate episode of recurren t major depressive disorder F33.1 and Intractable migraine without aura and with status migrainosus G43.011 [facility] [address] [facility] [id number] [address] [place] [address] Nov, [place] [address] [place] [id number] [address] [place] [address] Oct, Major depressive disorder, r ecurrent episode, in full remission F33.42 ; Intractable migraine without aura and with status migrainosus G43.011 ; Weight gain R63.5 ; Vision changes H53.9 and 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 [facility] [address] [place] [id number] [address] [place] [id number] 15 Oct, 2018 Encounter for pre-employment examination Z02.1 [facility] [address] [place] [id number] [address] [place] [phone] 15 Oct, 2018 [facility] [address] [facility] [id number] [address] [place] [phone] 20 Sep, 2018 Acute non-recurrent maxillar y sinusitis J01.00 [facility] [address] [facility] [id number] [address] [place] [phone] Sep, [facility] [address] [place] [id number] [address] [place] [address] Aug, [place] [address] [place] [id number] [address] [place] [phone] Jul, ADHD, predominantly inattent randall type F90.0 and Primary insomnia F51.01 [facility] [address] [place] [id number] [address] [place] [id number] Jun, ADHD, predominantly inattent randall type F90.0 [place] [address] [facility] [id number] [address] [place] [address] May, ADHD, predominantly inattent randall type F90.0 ; Moderate episode of recurrent major depressive disorder F33.1 and Therapeutic drug monitoring Z51.81 [place] [address] [facility] [id number] [address] [place] [address] May, [place] [address] [facility] [id number] [address] [place] [address] Apr, ADHD, predominantly inattent randall type F90.0 [place] [address] [facility] [id number] [address] [place] [address] Apr, ADHD, predominantly inattent randall type F90.0 and Major depressive disorder, recurrent episode, in full remission F33.42 [place] [address] [place] [id number] [address] [place] [address] Mar, ADHD, predominantly inattent randall type F90.0 and Primary insomnia F51.01 [place] [address] [place] [id number] [address] [place] [address] Mar, [place] [address] [place] [id number] [address] [place] [address] Mar, ADHD, predominantly inattent randall type F90.0 and Primary insomnia F51.01 [place] [address] [facility] [id number] [address] [place] [address] Feb, ADHD, predominantly inattent randall type F90.0 and Primary insomnia F51.01 [place] [address] [facility] [id number] [address] [place] [address] Jan, ADHD, predominantly inattent randall type F90.0 and Primary insomnia F51.01 [facility] [address] [facility] [id number] [address] [place] [address] December, Seasonal allergies J30.2 and Post-nasal drip R09.82 [facility] [address] [facility] [id number] [address] [place] [address] December, ADHD, predominantly inattent randall type F90.0 and Primary insomnia F51.01 [facility] [address] [place] [id number] [address] [place] [address] Nov, ADHD, predominantly inattent randall type F90.0 [facility] [address] [facility] [id number] [address] [place] [address] Oct, ADHD, predominantly inattent randall type F90.0 [place] [address] [place] [id number] [place] [address] Oct, ADHD, predominantly inattent randall type F90.0 ; Primary insomnia F51.01 and Screening, lipid Z13.220 [facility] [address] [place] [id number] [address] [place] [address] Sep, ADHD, predominantly inattent randall type F90.0 [facility] [address] [place] [id number] [address] [place] [address] Aug, ADHD, predominantly inattent randall type F90.0 and Primary insomnia F51.01 [facility] [address] [place] [id number] [address] [place] [address] Jul, ADHD, predominantly inattent randall type F90.0 [facility] [address] [place] [id number] [address] [place] [address] Jul, Primary insomnia F51.01 and ADHD, predominantly inattentive type F90.0 [facility] [address] [place] [id number] [address] [place] [address] Jun, ADHD, predominantly inattent randall type F90.0 [facility] [address] [facility] [id number] [address] [place] [address] May, ADHD, predominantly inattent randall type F90.0 [facility] [address] [id number] [address] [place] [address] Apr, ADHD, predominantly inattent randall type F90.0 [facility] [address] [facility] [id number] [address] [place] [address] Mar, ADHD, predominantly inattent randall type F90.0 ; Primary insomnia F51.01 ; Major depressive disorder, recurrent episode, in full remission F33.42 and Acne comedone L70.0 [facility] [address] [facility] [id number] [address] [place] [address] Mar, Major depressive disorder, r ecurrent episode, in full remission F33.42 and ADHD, predominantly inattentive type F90.0 [place] [address] [facility] [id number] [address] [place] [address] Feb, ADHD, predominantly inattent randall type F90.0 [place] [address] [facility] [id number] [address] [place] [address] Feb, Primary insomnia F51.01 [place] [address] [facility] [id number] [address] [place] [address] Jan, ADHD, predominantly inattent randall type F90.0 and Primary insomnia F51.01 [place] [address] [facility] [id number] [address] [place] [address] December, ADHD, predominantly inattent randall type F90.0 and Primary insomnia F51.01 [place] [address] [facility] [id number] [address] [place] [address] Oct, ADHD, predominantly inattent randall type F90.0 and Primary insomnia F51.01 [place] [address] [facility] [id number] [address] [place] [address] Sep, ADHD, predominantly inattent randall type F90.0 and Primary insomnia F51.01 [facility] [address] [facility] [id number] [address] [place] [phone] Aug, ADHD, predominantly inattent randall type F90.0 and Primary insomnia F51.01 [facility] [address] [id number] [address] [place] [address] Jul, Major depressive disorder, r ecurrent episode, in full remission F33.42 ; ADHD, predominantly inattentive type F90.0 ; Primary insomnia F51.01 ; Acute non-recurrent maxillary sinusitis J01.00 and Screening, lipid Z13.220 [facility] [address] [id number] [address] [place] [address] Jun, Acute non-recurrent maxillar y sinusitis J01.00 [facility] [address] [id number] [address] [place] [address] Jun, ADHD, predominantly inattent randall type F90.0 [facility] [address] [facility] [id number] [address] [place] [address] May, [facility] [address] [facility] [id number] [address] [place] [address] Apr, [facility] [address] [id number] [address] [place] [address] Feb, Rash R21 and Scabies B86 [place] [address] [facility] [id number] [address] [place] [address] Feb, ADHD, predominantly inattent randall type F90.0 and Major depressive disorder, recurrent episode, in full remission F33.42 [facility] [address] [facility] [id number] [address] [place] [address] Feb, [facility] [address] [facility] [id number] [address] [place] [address] Oct, [facility] [address] [facility] [id number] [address] [place] [address] Sep, [facility] [address] [facility] [id number] [address] [place] [address] Sep, [facility] [address] [facility] [id number] [address] [place] [address] Aug, [facility] [address] [id number] [address] [place] [address] Jul, [facility] [address] [facility] [id number] [address] [place] [address] Jun, [facility] [address] [facility] [id number] [address] [place] [address] May, [facility] [address] [facility] [id number] [address] [place] [address] May, ADHD, predominantly inattent randall type F90.0 and Major depressive disorder, recurrent episode, in full remission F33.42 [facility] [address] [id number] [address] [place] [address] Feb, Major depressive disorder, r ecurrent episode, moderate 296.32 [facility] [address] [id number] [address] [place] [address] Feb, [facility] [address] [id number] [address] [place] [address] Jan, [facility] [address] [facility] [id number] [address] [place] [address] Jan, [facility] [address] [facility] [id number] [address] [place] [address] December, [facility] [address] [facility] [id number] [address] [place] [address] Nov, [facility] [address] [id number] [address] [place] [address] Nov, [facility] [address] [facility] [id number] [address] [place] [address] Oct, [facility] [address] [facility] [id number] [address] [place] [address] Oct, [facility] [address] [facility] [id number] [address] [place] [address] Sep, [facility] [address] [id number] [address] [place] [address], [place] [address] Sep, [facility] [address] [id number] [address] [place] [address], [place] [address] Sep, [facility] [address] [id number] [address] [place] [address], [place] [address] Sep, [facility] [address] [id number] [address] [place] [address], [place] [address] Aug, [facility] [address] [id number] [address] [place] [address], [place] [address] Aug, [facility] [address] [id number] [address] [place] [address], [place] [address] Aug, [facility] [address] [id number] [address] [place] [address], [place] [address] Aug, [facility] [address] [id number] [address] [place] [address], [place] [address] Aug, [facility] [address] [id number] [address] [place] [address], [place] [address] Aug, [facility] [address] [id number] [address] [place] [address] Jul, [facility] [address] [id number] [address] [place] [address] Jul, [facility] [address] [id number] [address] [place] [address] Jun, [facility] [address] [id number] [address] [place] [address], [place] [address] Jun, [facility] [address] [id number] [address] [place] [address], [place] [address] May, [facility] [address] [id number] [address] [place] [address], [place] [address] May, [facility] [address] [id number] [address] [place] [address], [place] [address] Apr, [facility] [address] [id number] [address] [place] [address], [place] [address] Apr, [facility] [address] [id number] [address] [place] [address], [place] [address] Apr, [facility] [address] [id number] [address] [place] [address], [place] [address] Mar, [facility] [address] [id number] [address] [place] [address], [place] [address] Mar, [facility] [address] [id number] [address] [place] [address], [place] [address] Mar, [facility] [address] [id number] [address] [place] [address], [place] [address] Mar, [facility] [address] [id number] [address] [place] [address], [place] [address] Feb, [facility] [address] [id number] [address] [place] [address], [place] [address] Feb, [facility] [address] [id number] [address] [place] [address], [place] [address] Feb, [facility] [address] [id number] [address] [place] [address], [place] [address] Feb, [facility] [address] [id number] [address] [place] [address], [place] [address] Feb, [facility] [address] [id number] [address] [place] [address], [place] [address] Feb, [facility] [address] [id number] [address] [place] [address], [place] [address] Jan, [facility] [address] [id number] [address] [place] [address], [place] [address] Jan, [facility] [address] [id number] [address] [place] [address], [place] [address] Jan, [facility] [address] [id number] [facility] [place] [address] Jan, [facility] [address] [id number] [facility] [place] [address] December, [facility] [address] [id number] [facility] [place] [address] December, [facility] [address] [id number] [address] [place] [address], [place] [address] December, [facility] [address] [id number] [address] [place] [address], [place] [address] December, [facility] [address] [id number] [address] [place] [address], [place] [address] December, [facility] [address] [id number] [address] [place] [address], [place] [address] December, [facility] [address] [id number] [address] [place] [address], [place] [address] December, [facility] [address] [id number] [address] [place] [address], [place] [address] December, [facility] [address] [id number] [address] [place] [address], [place] [address] December, [facility] [address] [id number] [address] [place] [address], [place] [address] December, [facility] [address] [id number] [address] [place] [address], [place] [address] Nov, [facility] [address] [id number] [address] [place] [address], [place] [address] Nov, [facility] [address] [id number] [address] [place] [address], [place] [address] Oct, [facility] [address] [id number] [address] [place] [address], [place] [address] Oct, [facility] [address] [id number] [address] [place] [address], [place] [address] Oct, [facility] [address] [id number] [address] [place] [address], [place] [address] Oct, [facility] [address] [id number] [address] [place] [address], [place] [address] Oct, [facility] [address] [id number] [address] [place] [address], [place] [address] Oct, [facility] [address] [id number] [address] [place] [address], [place] [address] Aug, [facility] [address] [id number] [address] [place] [address], [place] [address] Aug, [facility] [address] [id number] [address] [place] [address], [place] [address] Aug, [facility] [address] [id number] [address] [place] [address], [place] [address] Aug, [facility] [address] [id number] [address] [place] [address], [place] [address] Aug, [facility] [address] [id number] [address] [place] [address], [place] [address] Aug, [facility] [address] [id number] [address] [place] [address], [place] [address] Aug, [facility] [address] [id number] [address] [place] [address], [place] [address] Aug, [facility] [address] [id number] [address] [place] [address], [place] [address] Jul, [facility] [address] [id number] [address] [place] [address], [place] [address] Jul, [facility] [address] [id number] [address] [place] [address], [place] [address] Jun, [facility] [address] [id number] [address] [place] [address], [place] [address] Jun, [facility] [address] [id number] [address] [place] [address], [place] [address] Jun, [facility] [address] [id number] [address] [place] [address], [place] [address] Jun, [facility] [address] [id number] [address] [place] [address], [place] [address] Jun, [facility] [address] [id number] [address] [place] [address], [place] [address] Jun, [facility] [address] [id number] [address] [place] [address], [place] [address] May, [facility] [address] [id number] [address] [place] [address], [place] [address] May, [facility] [address] [id number] [address] [place] [address], [place] [address] Apr, [facility] [address] [id number] [address] [place] [address], [place] [address] Apr, [facility] [address] [id number] [address] [place] [address], [place] [address] Mar, [facility] [address] [id number] [address] [place] [address], [place] [address] Mar, [facility] [address] [id number] [address] [place] [address], [place] [address] Mar, [facility] [address] [id number] [address] [place] [address], [place] [address] Feb, [facility] [address] [id number] [address] [place] [address], [place] [address] Jan, [facility] [address] [id number] [address] [place] [address], [place] [address] December, [facility] [address] [id number] [address] [place] [address], [place] [address] December, [facility] [address] [id number] [address] [place] [address], [place] [address] December, [facility] [address] [id number] [address] [place] [address], [place] [address] December, [facility] [address] [id number] [address] [place] [address], [place] [address] December, [facility] [address] [id number] [address] [place] [address], [place] [address] December, [facility] [address] [id number] [address] [place] [address], [place] [address] Nov, [facility] [address] [id number] [address] [place] [address], [place] [address] Nov, [facility] [address] [id number] [address] [place] [address], [place] [address] Nov, [facility] [address] [id number] [address] [place] [address], [place] [address] Oct, [facility] [address] [id number] [address] [place] [address], [place] [address] Jun, [facility] [address] [id number] [address] [place] [address], [place] [address] Jun, [facility] [address] [id number] [address] [place] [address], [place] [address] Jun, [facility] [address] [id number] [address] [place] [address], [place] [address] Jun, [facility] [address] [id number] [address] [place] [address], [place] [address] Apr, [facility] [address] [id number] [address] [place] [address], [place] [address] Mar, [facility] [address] [id number] [address] [place] [address], [place] [address] Mar, [facility] [address] [id number] [address] [place] [address], [place] [address] Jan, [facility] [address] [id number] [address] [place] [address] December, [facility] [address] [id number] [address] [place] [address] Nov, [facility] [address] [id number] [address] [place] [address] Nov, [facility] [address] [id number] [address] [place] [address] Nov, [facility] [address] [id number] [address] [place] [address] Nov, [facility] [address] [id number] [address] [place] [address] Aug, [facility] [address] [id number] [address] [place] [address] Aug, [facility] [address] [id number] [address] [place] [address] Jul, [facility] [address] [id number] [address] [place] [address] Jun, [facility] [address] [id number] [address] [place] [address] Jun, [facility] [address] [id number] [address] [place] [address] Apr, [facility] [address] [id number] [address] [place] [address] Feb, IMMUNIZATIONS No Known Immunizations SOCIAL HISTORY [...]
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
== END 2020-02-13 16:11 | disposition home or self-care (01) ==
LOC: EDUNIT# 01:13 → ER 01:19 → UNDOADMOB 05:49 → 4TH 05:49 → SDC 05:49 → UNDODISOB 02-13 16:11
PROVIDERS: ATTEND Surgery
DX: S52.201A Unspecified fracture of shaft of right ulna, initial encounter for closed fracture (principal); S52.91XA Unspecified fracture of right forearm, initial encounter for closed fracture; S81.812A Laceration without foreign body, left lower leg, initial encounter; S40.211A Abrasion of right shoulder, initial encounter; F10.929 Alcohol use, unspecified with intoxication, unspecified; R11.2 Nausea with vomiting, unspecified; F17.210 Nicotine dependence, cigarettes, uncomplicated; F41.9 Anxiety disorder, unspecified; F32.9 Major depressive disorder, single episode, unspecified; Z79.899 Other long term (current) drug therapy; V89.2XXA Person injured in unspecified motor-vehicle accident, traffic, initial encounter; Z20.828 Contact with and (suspected) exposure to other viral communicable diseases; Z79.891 Long term (current) use of opiate analgesic; Z80.9 Family history of malignant neoplasm, unspecified
CPT/HCPCS: 12002; 25545; 29125; 70450; 71260; 72125; 73030; 73060; 73090; 73110; 73552; 73590; 73610; 74177; 76000; 80048; 80076; 80306; 81000; 84703; 85027; 86850; 86900; 86901; 87081; 90471; 93041; 96361; 96365; 96375; 97110; 97116; 97162; 97167; 99285; C1713 ×4; G0480; U0002; 36415; 80320; 87635; 90715

== ENCOUNTER → 2020-02-15 | Outpatient (CLI) | payer OTHER ==
[~2020-02-15] MED LIST changes: +AMPH20CA5 PO; +BUPR150T7 PO; +DESV50TA PO; +IBUP-2185 PO; +LORA10TA76 PO; +OXYC1TAB87 PO; +RIZA10TA37 PO; +ZOLP10TA PO
== END ==
LOC: ORTHO 10:01
PROVIDERS: ATTEND Orthopaedic Surgery
DX: S52.231A Displaced oblique fracture of shaft of right ulna, initial encounter for closed fracture (principal); X58.XXXA Exposure to other specified factors, initial encounter

== ENCOUNTER → 2020-02-20 | Outpatient (CLI) | payer OTHER ==
--- NOTE | 2020-02-20 13:58 | Diagnostic Imaging Report ---
INDICATION: Ulnar fracture, followup. TECHNIQUE: 2 views of the right forearm. CORRELATION STUDY: 02/11/2020. FINDINGS: A long plate and multiple screws transfix the previously demonstrated proximal mid ulnar shaft fracture. The fracture is still visualized; however, the alignment is essentially anatomic post fixation. The radius remains intact. Some soft tissue swelling is noted with multiple skin bryanna over the lower portion of the dorsal aspect of forearm. IMPRESSION: Internal fixation performed of the ulna shaft fracture. The alignment is essentially anatomic post fixation. Dictated by: Dictated on workstation # [id number]
== END ==
LOC: ORTHO 12:30
PROVIDERS: ATTEND Orthopaedic Surgery
DX: S52.231D Displaced oblique fracture of shaft of right ulna, subsequent encounter for closed fracture with routine healing (principal)
CPT/HCPCS: 29125; 73090

== ENCOUNTER → 2020-02-27 | Outpatient (CLI) | payer OTHER ==
--- NOTE | 2020-02-27 14:06 | Diagnostic Imaging Report ---
INDICATION: Ulnar fracture TECHNIQUE: 2 views of the right forearm. CORRELATION STUDY: 02/20/2020 FINDINGS: Plate and multiple screws transfixing the proximal mid ulna shaft fracture is again demonstrated. The fracture lines remain well visualized. Very little if any interval healing formation since prior study. Radius unchanged. Scattered skin bryanna remain present. IMPRESSION: 1. No appreciable interval healing of the internally fixed right ulna shaft fracture. Fracture lines are still well visualized but unchanged in their alignment. Dictated by: Dictated on workstation # [id number]
== END ==
LOC: ORTHO 13:07
PROVIDERS: ATTEND Orthopaedic Surgery
DX: S52.231A Displaced oblique fracture of shaft of right ulna, initial encounter for closed fracture (principal)
CPT/HCPCS: 29125; 73090

== ENCOUNTER → 2020-03-13 | Outpatient (CLI) | payer OTHER ==
--- NOTE | 2020-03-13 12:31 | Diagnostic Imaging Report ---
INDICATION: Follow-up ORIF. Previous fracture. COMPARISON: 02/27/2020 FINDINGS: 2 radiographic views of the right forearm were obtained and again show postsurgical changes of previous ORIF of the proximal and mid ulnar shaft. Multiple comminuted fracture fragments are again identified, but remain in stable position. No unexpected radiopaque foreign bodies are seen. No new acute osseous abnormality is identified. Joint spaces are intact. IMPRESSION: 1. Redemonstration nonacute fracture and postsurgical changes to the right ulnar shaft. Dictated by: Dictated on workstation # [id number]
== END ==
LOC: ORTHO 10:19
PROVIDERS: ATTEND Orthopaedic Surgery
DX: S52.231D Displaced oblique fracture of shaft of right ulna, subsequent encounter for closed fracture with routine healing (principal); Z98.890 Other specified postprocedural states
CPT/HCPCS: 73090

== ENCOUNTER → 2020-03-27 | Outpatient (CLI) | payer OTHER ==
--- NOTE | 2020-03-27 11:16 | Diagnostic Imaging Report ---
EXAMINATION: Right forearm at 1039 AM INDICATION: Follow-up fracture AP and lateral views were obtained. As noted on the prior exam of 03/13/2020, there is an orthopedic plate and screw fixation device securing a nondisplaced fracture of the proximal ulna. The orthopedic hardware remains in good position. The main fracture fragments are near anatomic in alignment although the fracture lines are still evident. No other fracture or acute bony abnormality is seen. The soft tissues are unremarkable. IMPRESSION: 1. The postoperative and posttraumatic changes involving the ulna seen previously appear stable. The fracture lines are still evident. 2. There is no acute bony abnormality identified. Dictated by: Dictated on workstation # [id number]
--- NOTE | 2020-03-27 12:27 | Diagnostic Imaging Report ---
EXAMINATION: Left hip at 10:42 a.m. INDICATION: Hip strain. FINDINGS: AP and lateral views were obtained. There are no prior left hip studies available for comparison. There is no fracture, dislocation, or acute bony abnormality evident. There is mild degenerative disease of the hip joint. The soft tissues are unremarkable. IMPRESSION: There is no evidence for an acute bony abnormality. Dictated by: Dictated on workstation # [id number]
== END ==
LOC: ORTHO 10:25
PROVIDERS: ATTEND Orthopaedic Surgery
DX: S52.001D Unspecified fracture of upper end of right ulna, subsequent encounter for closed fracture with routine healing (principal); S76.012D Strain of muscle, fascia and tendon of left hip, subsequent encounter; X58.XXXD Exposure to other specified factors, subsequent encounter
CPT/HCPCS: 73090; 73502

== ENCOUNTER → 2020-04-17 | Outpatient (CLI) | payer OTHER ==
--- NOTE | 2020-04-18 14:33 | Diagnostic Imaging Report ---
NAME: Elaine Nino. : 1970. EXAMINATION: Right forearm, 2 views, on 04/17/2020 at 11:04 AM. INDICATION: Followup forearm fracture. COMPARISON: 03/27/2020. FINDINGS: A plate and numerous screws transfix the proximal ulnar fracture. The hardware is intact without fracture or loosening. Fracture lines involving the proximal ulna remain visible. The alignment is anatomic. The alignment at the wrist and elbow is normal. IMPRESSION: ORIF of the proximal ulnar fracture. The fracture lines do remain partially visible. The alignment is anatomic. Dictated by: Dictated on workstation # [id number]
== END ==
LOC: ORTHO 10:20
PROVIDERS: ATTEND Orthopaedic Surgery
DX: S52.231D Displaced oblique fracture of shaft of right ulna, subsequent encounter for closed fracture with routine healing (principal)
CPT/HCPCS: 73090

== ENCOUNTER → 2020-05-15 | Outpatient (CLI) | payer OTHER ==
--- NOTE | 2020-05-15 12:07 | Diagnostic Imaging Report ---
INDICATION: Follow-up forearm fracture. Time of exam 10:38 AM Correlation is made with prior radiograph from 04/17/2020. Plate and numerous screws transfixes the fracture involving the proximal 3rd of the ulna. Hardware remains intact without fracture or loosening. Fracture lines of the ulna do remain partly visible however. There is some callus formation present. IMPRESSION: Healing ulnar fracture status post ORIF. Fracture lines do remain partly visible. Dictated by: Dictated on workstation # [id number]
== END ==
LOC: ORTHO 10:24
PROVIDERS: ATTEND Orthopaedic Surgery
DX: S52.231D Displaced oblique fracture of shaft of right ulna, subsequent encounter for closed fracture with routine healing (principal); Z98.890 Other specified postprocedural states
CPT/HCPCS: 73090